=== PATIENT | female | born 1945 | race Caucasian/White ===

== ENCOUNTER → 2017-11-06 | Day surgery (SDC) | payer MEDICARE, MEDICAID, SELFPAY | END | disposition home or self-care (01) | PROVIDERS: Family Provider Internal Medicine; PCP Internal Medicine; Visit Provider Surgery | DX: T82.9XXA Unspecified complication of cardiac and vascular prosthetic device, implant and graft, initial encounter (principal); C49.9 Malignant neoplasm of connective and soft tissue, unspecified | CPT/HCPCS: 36561; 36590; 71010; 71045; 76000; C1788; J1100; J1200; J1644; J2250; J2405; J2704; J3010 ==

== ENCOUNTER → 2018-01-08 08:24 | Outpatient (CLI) | payer MEDICARE, MEDICAID, SELFPAY ==
--- NOTE | 2018-01-08 09:18 | DI.CT.S_ITS ---
PROCEDURE: CT CHEST ABD PEL W CON INDICATIONS: leiomyosarcoma TECHNIQUE: After the administration of oral and intravenous contrast, 5 mm thick sections acquired from the lung apices to the symphysis. 5 mm coronal and sagittal reformats were performed, with additional 7 mm coronal MIP reformats through the lungs. For radiation dose reduction, the following was used: automated exposure control, adjustment of mA and/or kV according to patient size. COMPARISON: [facility], CT, CHEST/ABD/PEL WITH CONTRAST, 01/13/2014, 10:47. [facility], CT, CHEST/ABD/PEL WITH CONTRAST, 07/19/2017, 13:49. [facility], CT, CHEST/ABDOMEN WITHOUT CONTRAST, 05/13/2017, 11:26. [facility], CT, THORAX WITHOUT CONTRAST, 02/18/2017, 10:44. [facility], CT, THORAX WITH CONTRAST, 12/31/2016, 9:43. [facility], CT, CHEST/ABD/PEL WITH CONTRAST, 09/13/2016, 13:55. [facility], CT, CHEST/ABD/PEL WITH CONTRAST, 05/22/2016, 12:45. [place], [place], PET/CT SKULL BASE TO MID THIGH, 02/12/2014, 12:07. [facility], CT, CHEST/ABD/PEL WITH CONTRAST, 10/18/2017, 11:59. FINDINGS: Image quality: Excellent. CHEST: Lungs and pleura: The previously identified nodule with groundglass opacity in the medial right apex continues to decrease in size currently measuring 32 mm AP by 27 mm transverse compared to 36 mm AP by 28 mm transverse. The remaining areas of patchy nodular opacity within lungs bilaterally are unchanged. In addition, scattered nodules within the lungs are also unchanged. No new areas of pass a, patchy or nodular are identified since prior exam. Mediastinum: Heart size is normal. No pericardial effusion. No mediastinal or hilar adenopathy by size criteria. Thoracic aorta and central pulmonary arteries are normal in size. Esophagus is normal in caliber. No hiatal hernia. Chest wall: No axillary or supraclavicular adenopathy by size criteria. Thyroid gland focus of low attenuation measuring approximately 4 mm in the right lobe is unchanged.. ABDOMEN: Solid organs: Liver is normal in size and enhancement. Gallbladder demonstrates minimal calcification without wall thickening, unchanged. Biliary system is non dilated. Pancreas enhances normally. Spleen is normal in size and enhancement. No adrenal nodules. Kidneys demonstrate normal size and enhancement, without hydronephrosis. Peritoneum and bowel: Bowel loops are nonobstructed. There is persistent thickening along the pylorus and duodenum. Prominent stool present throughout colon. Nodes and vessels: No retroperitoneal or mesenteric adenopathy by size criteria. Aorta and inferior vena cava are normal in size. Miscellaneous: No ventral hernias. PELVIS: Genitourinary: Bladder wall thickness is normal. Miscellaneous: No inguinal hernias or adenopathy. Bones: Sclerosis and deformity are present within the right lateral fifth and sixth ribs as well as the left lateral fourth and fifth ribs, likely consistent with previous pathologic fracture. It is noted that appearance is stable compared to 10/18/17. However, there has been interval progression in fracture appearance of the left-sided ribs compared to 07/19/17. No vertebral body compression fractures. IMPRESSION: 1. Decreased appearance of the groundglass surrounding nodule in the right apex. 2. Stable appearance of patchy and nodular opacities within the lungs bilaterally suggestive of ratio show pneumonitis. 3. Bilateral rib involvement as described above. Prominent stool is present without obstruction. Recommend correlation constipation. Dictated by: Karla Scott M.D. on 01/08/2018 at 13:45 Approved by: Karla Scott M.D. on 01/08/2018 at 14:02
== END ==
PROVIDERS: PCP Internal Medicine; Visit Provider Internal Medicine Hematology & Oncology
DX: C34.90 Malignant neoplasm of unspecified part of unspecified bronchus or lung (principal); C49.9 Malignant neoplasm of connective and soft tissue, unspecified
CPT/HCPCS: 71260; 74177; Q9967

== ENCOUNTER → 2018-03-25 11:33 | Outpatient (CLI) | payer MEDICARE, MEDICAID, SELFPAY ==
--- NOTE | 2018-03-25 13:34 | DI.CT.S_ITS ---
PROCEDURE: CT CHEST ABD PEL W CON INDICATIONS: SURVEILLANCE TECHNIQUE: After the administration of oral and intravenous contrast, 5 mm thick sections acquired from the lung apices to the symphysis. 5 mm coronal and sagittal reformats were performed, with additional 7 mm coronal MIP reformats through the lungs. For radiation dose reduction, the following was used: automated exposure control, adjustment of mA and/or kV according to patient size. COMPARISON: [facility], CT, CHEST/ABD/PEL WITH CONTRAST, 10/18/2017, 11:59. [facility], CT, CHEST/ABD/PEL WITH CONTRAST, 07/19/2017, 13:49. [facility], CT, CHEST/ABDOMEN WITHOUT CONTRAST, 05/13/2017, 11:26. [facility], CT, CT STILES, 02/25/2017, 15:37. [facility], CT, THORAX WITHOUT CONTRAST, 02/18/2017, 10:44. [facility], CT, THORAX WITH CONTRAST, 12/31/2016, 9:43. [facility], CT, CHEST/ABD/PEL WITH CONTRAST, 09/13/2016, 13:55. [facility], CT, CT CHEST ABD PEL W CON, 01/08/2018, 9:13. FINDINGS: Image quality: Excellent. CHEST: Lungs and pleura: No new consolidation is seen. There is redemonstration of posterior right apical mass, with no change in size however there is increased internal attenuation since the prior study Other areas of ill-defined nodular consolidation seen throughout the upper and lower lobes bilaterally have not changed since 01/08/18. No pleural effusions or pneumothorax. Central and peripheral airways appear patent and normal in caliber. Mediastinum: Heart size is normal. Coronary calcifications are seen. No pericardial effusion. No mediastinal or hilar adenopathy by size criteria. Thoracic aorta and central pulmonary arteries are normal in size. Possible distal esophageal wall thickening, nonspecific. No hiatal hernia. Chest wall: No axillary or supraclavicular adenopathy by size criteria. Thyroid gland grossly unremarkable. ABDOMEN: Solid organs: There is hepatic steatosis. No focal hepatic lesion is seen. Gallbladder contains a gallstone however no definite pericholecystic inflammatory appearance.. Biliary system is non dilated. Pancreas enhances normally. Spleen is normal in size and enhancement. No adrenal nodules. Kidneys demonstrate normal size and enhancement, without hydronephrosis. Peritoneum and bowel: Bowel loops demonstrate normal wall thickness and caliber. No free fluid or air. The rectum contains stool and is otherwise unremarkable. The appendix is not well-visualized. Nodes and vessels: No retroperitoneal or mesenteric adenopathy by size criteria. Aorta and inferior vena cava are normal in size. Miscellaneous: No ventral hernias. PELVIS: Genitourinary: Bladder wall thickness is normal. Miscellaneous: No inguinal hernias or adenopathy. Bones: No significant change in left fourth and fifth rib fractures. Right fifth and sixth rib fracture are also unchanged. No vertebral body compression fractures. IMPRESSION: Overall, no interval change in size or number of ill-defined nodular areas of consolidation throughout the bilateral upper and lower lobes. However, there is increase in internal attenuation of the right apical nodule which now demonstrates a more solid appearance, of unclear clinical significance. Continued close attention to this area is recommended. Possible distal esophageal wall thickening which could be further evaluated with endoscopy as clinically warranted. Coronary artery disease. Hepatic steatosis. Dictated by: Jaime Singleton M.D. on 03/25/2018 at 14:23 Approved by: Jaime Singleton M.D. on 03/25/2018 at 14:40
== END ==
PROVIDERS: Family Provider Internal Medicine; PCP Internal Medicine; Visit Provider Internal Medicine Hematology & Oncology
DX: C49.9 Malignant neoplasm of connective and soft tissue, unspecified (principal); R91.8 Other nonspecific abnormal finding of lung field; I25.10 Atherosclerotic heart disease of native coronary artery without angina pectoris; K76.0 Fatty (change of) liver, not elsewhere classified
CPT/HCPCS: 71260; 74177; Q9967

== ENCOUNTER → 2018-04-11 12:57 | Outpatient (CLI) | payer MEDICARE, MEDICAID, SELFPAY ==
[2018-04-11 14:02] LABS: Hematocrit 36.8 % (36-46); Hemoglobin 12.6 g/dL (12.0-16.0); Mean Corpuscular HGB Conc 34.3 % (30-36); Mean Corpuscular Hemoglobin 34.1 PG (26-34); Mean Corpuscular Volume 99.4 fL (80-100); Platelet Count 228 X10^3/uL (150-400); Red Cell Distribution Width 14.9 % (11.6-14.8); White Blood Cell Count 3.1 X10^3/uL (4.5-11.0)
[2018-04-11 14:43] LABS: Alanine Aminotransferase 21 IU/L (9-52); Albumin 4.4 g/dL (3.5-5.0); Albumin Globulin Ratio 1.6 (1.0-2.8); Alkaline Phosphatase 39 U/L (38-126); Aspartate Aminotransferase 24 IU/L (14-36); BUN Creatinine Ratio 13.8 (6-22); Bilirubin Total 0.6 mg/dL (0.2-1.3); Blood Urea Nitrogen 11 mg/dL (7-17); Calcium 10.1 mg/dL (8.4-10.2); Carbon Dioxide 32 mmol/L (22-32); Chloride 102 mmol/L (98-107); Estimated Glomerular Filt Rate > 60.0 mL/min (>60); Globulin 2.7 g/dL (1.7-4.1); Glucose 92 mg/dL (80-110); HEMOLYSIS < 15 (0-50); Potassium 4.8 mmol/L (3.4-5.1); Sodium 143 mmol/L (137-145); Total Protein 7.1 g/dL (6.3-8.2)
== END ==
PROVIDERS: Family Provider Internal Medicine; PCP Internal Medicine; Visit Provider Plastic Surgery
DX: Z01.810 Encounter for preprocedural cardiovascular examination (principal)
CPT/HCPCS: 36415; 80053; 85027; 93005

== ENCOUNTER 2018-05-06 14:22 | Emergency (ER) | payer MEDICARE, MEDICAID, SELFPAY ==
[2018-05-06 14:38] VITALS: BP 174/88; PULSE 86; RESP 24; TEMP 37; O2SAT 100; BMI 21.7
--- NOTE | 2018-05-06 14:50 | ED_ITS ---
HPI - URI/Sore Throat <DESIREE Geronimo - Last Filed: 05/06/18 22:06> General Chief Complaint: Upper Respiratory Symptoms Stated Complaint: flu x4 days and dehydrated Time Seen by Provider: 05/06/18 14:43 Source: patient Mode of arrival: ambulatory Limitations: no limitations History of Present Illness HPI Narrative: 72-year-old female with history of uterine cancer who is a nonsmoker here for complaint of having a fever cough and nausea vomiting diarrhea over the past 4 days. Her has had the similar symptoms. She denies any new acute abdominal pain. Positive p.o. intake although is decreased to the nausea vomiting. They are concerned that symptoms feel like the flu. Cough is described as nonproductive. She denies any urinary symptoms. No other concerns or complaints Related Data Home Medications Medication Instructions Recorded Confirmed calcium carbonate [Calcium 600] 03/20/18 05/15/18 cholecalciferol (vitamin D3) 2,000 unit PO DAILY 03/20/18 05/15/18 [Vitamin D3] cinnamon bark [Cinnamon] 1 cap PO BID 03/20/18 05/15/18 arina (Zingiber officinalis) 500 mg PO TID 03/20/18 05/15/18 morphine ER 20 mg capsule,extended 20 mg PO Q12H 04/28/18 05/15/18 release pellets Women's 50 Plus Daily Formula 1 cap PO DAILY 05/06/18 05/15/18 amlodipine 1 tab PO DAILY 05/06/18 05/15/18 lidocaine 1 patch TOPICAL Q12H 05/06/18 05/15/18 lidocaine HCl 1 applic TOPICAL DAILY PRN 05/06/18 05/15/18 omeprazole 1 tab PO DAILY 05/06/18 05/15/18 oxybutynin chloride 1 tab PO DAILY 05/06/18 05/15/18 pazopanib [Votrient] 4 tab PO DAILY 05/06/18 05/15/18 tramadol 1 - 2 tab PO Q6H PRN 05/06/18 05/15/18 triamterene-hydrochlorothiazid 1 tab PO DAILY PRN 05/06/18 05/15/18 turmeric root extract 500 mg PO BID 05/06/18 05/15/18 oxycodone-acetaminophen 5 mg-325 PO 7 Days #30 tab 05/15/18 05/15/18 mg tablet Previous Rx's Medication Instructions Recorded letrozole [Femara] 2.5 mg PO QDAY #90 tab 02/17/18 ondansetron [Zofran ODT] 4 mg PO Q6-8H PRN #10 tab 05/06/18 calcitonin (salmon) 200 1 spray INTRANASAL (ALT) DAILY 05/13/18 unit/actuation nasal spray #3.7 ml Allergies Allergy/AdvReac Type Severity Reaction Status Date / Time Pork/Porcine Containing Allergy Intermediate SWELLING, Verified 05/15/18 10:45 Products ILL Review of Systems <DESIREE Geronimo - Last Filed: 05/06/18 22:06> Review of Systems All systems reviewed & are unremarkable except as noted in HPI and below Constitutional Reports fever(s) Eyes Denies change in vision, Denies eye discharge, Denies irritation and Denies loss of vision ENT Ears, Nose, Mouth, and Throat: Denies change in voice, Denies neck pain and Denies sore throat Cardiovascular Denies chest pain, Denies irregular heart rhythm, Denies lightheadedness, Denies palpitations, Denies dyspnea, Denies dyspnea on exertion and Denies orthopnea Respiratory Reports cough, Denies dyspnea, Denies dyspnea on exertion and Denies wheezing Gastrointestinal Gastrointestinal: Reports diarrhea, Reports nausea and Reports vomiting Genitourinary Denies hematuria, Denies flank pain, Denies urinary incontinence and Denies urinary urgency Musculoskeletal Denies neck pain Integumentary/Breasts Denies pruritus, Denies erythema, Denies rash and Denies wounds Neurologic Denies confusion and Denies loss of vision Psychiatric Denies anxiety, Denies confusion, Denies depression, Denies homicidal ideation and Denies suicidal ideation Endocrine Denies palpitations Hematologic/Lymphatic Denies easy bruising Allergic/Immunologic Denies wheezing Exam <DESIREE Geronimo - Last Filed: 05/06/18 22:06> Initial Vital Signs Initial Vital Signs: Vital Signs Temperature 98.6 F 05/06/18 14:38 Pulse Rate 86 05/06/18 14:38 Respiratory Rate 24 05/06/18 14:38 Blood Pressure 174/88 H 05/06/18 14:38 Pulse Oximetry 100 05/06/18 14:38 Const General: cooperative and well developed Nutritional Appearance: well nourished Orientation: alert, awake, oriented x3 and not confused [facility] Nose: nasal discharge Face and sinus: sinus tenderness Mouth: oral mucosae normal and moist mucous membranes Throat: posterior oropharynx normal Eyes Conjunctivae: conjunctivae normal Sclera: sclerae normal Pupils: PERRL EOM: EOM intact bilaterally Resp Effort & Inspection: normal respiratory effort, able to speak in complete sentences, no respiratory distress and no use of accessory muscles Auscultation: clear to auscultation bilaterally, no rales, no rhonchi and no wheezes Cardio Rate: regular rate Rhythm: regular rhythm Heart Sounds: no click, no gallops, no murmurs and no rubs Pulses: normal peripheral pulses GI Inspection: non-distended Palpation: soft, no hepatosplenomegaly, No guarding, No pulsatile mass and tender (Tenderness at incision site not new finding no signs of infection at the incision site) Auscultation: normal bowel sounds General: No CVA tenderness Neuro General: alert, oriented x3, gait normal and no focal motor deficits Speech: speech normal <Moraima Farah MD - Last Filed: 05/15/18 14:00> Initial Vital Signs Initial Vital Signs: Vital Signs Temperature 98.6 F 05/06/18 14:38 Pulse Rate 86 05/06/18 14:38 Respiratory Rate 24 05/06/18 14:38 Blood Pressure 174/88 H 05/06/18 14:38 Pulse Oximetry 100 05/06/18 14:38 Course <DESIREE Geronimo - Last Filed: 05/06/18 22:06> Orders Ordered: Discontinued Medications Sodium Chloride (Normal Saline 0.9%) 1,000 mls @ 1,000 mls/hr IV BOLUS ONE Stop: 05/06/18 16:18 Last Infusion: 05/06/18 18:29 Dose: 0 mls/hr Admin: 05/06/18 16:45 Dose: 1,000 mls/hr Ondansetron HCl (Zofran) 4 mg IV NOW ONE Stop: 05/06/18 15:20 Last Admin: 05/06/18 16:45 Dose: 4 mg Vital Signs - 8 hr 05/06/18 14:38 05/06/18 16:07 05/06/18 18:35 Temperature 98.6 F Pulse Rate 86 87 83 Respiratory Rate 24 16 18 Blood Pressure 174/88 H Blood Pressure [Right Arm] 164/91 H 164/85 H Pulse Oximetry 100 98 99 05/06/18 18:48 Temperature Pulse Rate 84 Respiratory Rate 16 Blood Pressure Blood Pressure [Right Arm] 164/85 H Pulse Oximetry 98 <Moraima Farah MD - Last Filed: 05/15/18 14:00> Orders Ordered: Discontinued Medications Sodium Chloride (Normal Saline 0.9%) 1,000 mls @ 1,000 mls/hr IV BOLUS ONE Stop: 05/06/18 16:18 Last Infusion: 05/06/18 18:29 Dose: 0 mls/hr Admin: 05/06/18 16:45 Dose: 1,000 mls/hr Ondansetron HCl (Zofran) 4 mg IV NOW ONE Stop: 05/06/18 15:20 Last Admin: 05/06/18 16:45 Dose: 4 mg Vital Signs - 8 hr 05/06/18 14:38 05/06/18 16:07 05/06/18 18:35 Temperature 98.6 F Pulse Rate 86 87 83 Respiratory Rate 24 16 18 Blood Pressure 174/88 H Blood Pressure [Right Arm] 164/91 H 164/85 H Pulse Oximetry 100 98 99 05/06/18 18:48 Temperature Pulse Rate 84 Respiratory Rate 16 Blood Pressure Blood Pressure [Right Arm] 164/85 H Pulse Oximetry 98 MDM - URI/Sore Throat <DESIREE Geronimo - Last Filed: 05/06/18 22:06> Lab Data Result diagrams: 05/06/18 16:15 05/06/18 16:15 Lab Results 05/06/18 05/06/18 05/06/18 Range/Units 16:09 16:15 16:15 WBC 5.7 (4.5-11.0) X10^3/uL RBC 3.47 L (4.0-5.2) X10^6/uL Hgb 11.7 L (12.0-16.0) g/dL Hct 35.1 L (36-46) % MCV 101.2 H (80-100) fL MCH 33.8 (26-34) PG MCHC 33.3 (30-36) % RDW 15.3 H (11.6-14.8) % Plt Count 328 (150-400) X10^3/uL Neut % (Auto) 80.4 H (50-75) % Lymph % (Auto) 12.8 L (25-40) % [place] % (Auto) 5.9 (3-14) % Eos % (Auto) 0.4 L (2-4) % Baso % (Auto) 0.5 (0-2) % Neut # (Auto) 4600 (8504-3106) /uL Sodium (137-145) mmol/L Potassium (3.4-5.1) mmol/L Chloride (98-107) mmol/L Carbon Dioxide (22-32) mmol/L BUN (7-17) mg/dL Creatinine (0.52-1.04) mg/dL Estimated GFR (>60) mL/min BUN/Creatinine Ratio (6-22) Glucose (80-110) mg/dL Lactate (0.7-2.1) mmol/L Calcium (8.4-10.2) mg/dL Total Bilirubin (0.2-1.3) mg/dL AST (14-36) IU/L ALT (9-52) IU/L Alkaline Phosphatase (38-126) U/L Total Protein (6.3-8.2) g/dL Albumin (3.5-5.0) g/dL Globulin (1.7-4.1) g/dL Albumin/Globulin Ratio (1.0-2.8) Procalcitonin < 0.05 (<0.5) ng/mL Urine RBC 0-1/hpf (0-5/HPF) Urine WBC 1-5/hpf (0-5/HPF) Ur Squamous Epith Cells 0-1 /hpf Urine Bacteria Occasional (0-1) (None) Urine Mucus 1+ H (Negative) Ur Culture Indicated? Cult not indicated Micro UA Comment Not Reportable Influenza A & B (PCR) (Negative) 05/06/18 05/06/18 05/06/18 Range/Units 16:15 16:15 Unknown WBC (4.5-11.0) X10^3/uL RBC (4.0-5.2) X10^6/uL Hgb (12.0-16.0) g/dL Hct (36-46) % MCV (80-100) fL MCH (26-34) PG MCHC (30-36) % RDW (11.6-14.8) % Plt Count (150-400) X10^3/uL Neut % (Auto) (50-75) % Lymph % (Auto) (25-40) % [place] % (Auto) (3-14) % Eos % (Auto) (2-4) % Baso % (Auto) (0-2) % Neut # (Auto) (6962-8845) /uL Sodium 141 (137-145) mmol/L Potassium 4.1 (3.4-5.1) mmol/L Chloride 105 (98-107) mmol/L Carbon Dioxide 25 (22-32) mmol/L BUN 12 (7-17) mg/dL Creatinine 0.60 (0.52-1.04) mg/dL Estimated GFR > 60.0 (>60) mL/min BUN/Creatinine Ratio 20.0 (6-22) Glucose 87 (80-110) mg/dL Lactate 1.0 (0.7-2.1) mmol/L Calcium 9.3 (8.4-10.2) mg/dL Total Bilirubin 0.5 (0.2-1.3) mg/dL AST 22 (14-36) IU/L ALT 18 (9-52) IU/L Alkaline Phosphatase 47 (38-126) U/L Total Protein 7.3 (6.3-8.2) g/dL Albumin 4.4 (3.5-5.0) g/dL Globulin 2.9 (1.7-4.1) g/dL Albumin/Globulin Ratio 1.5 (1.0-2.8) Procalcitonin (<0.5) ng/mL Urine RBC (0-5/HPF) Urine WBC (0-5/HPF) Ur Squamous Epith Cells Urine Bacteria (None) Urine Mucus (Negative) Ur Culture Indicated? Micro UA Comment Influenza A & B (PCR) Negative (Negative) Urine Dip Bedside Urine Glucose Negative Bedside Urine Bilirubin - Negative Bedside Urine Ketone ++ 40 Urine Specific [place] 1.030 Bedside Urine Occult Blood - Negative Bedside Urine pH 6.0 Bedside Urine Protein +/- 15 Bedside Urine Urobilinogen - Negative Bedside Urine Nitrite - Negative Bedside Urine Leukocytes - Negative Esterase Imaging Data Chest x-ray: Radiologist's impression: [address] [place] [id number] XRay Report Signed Patient: Nessa Nino [facility]#: [id number] : 7Acct:[id number] Age/Sex: 72 / FDate of Service: 05/06/18 Loc: ED Accession Number: [id number] Procedure: XR chest 1V Ordering Provider: Daquan Gamble PROCEDURE: XR CHEST 1V INDICATIONS: Cough and fever TECHNIQUE: One view of the chest was acquired. COMPARISON: [facility], CHEST 1 VIEW, 11/06/2017, 13:19. FINDINGS: Surgical changes and devices: A right-sided Port-A-Cath central line is unchanged. Lungs and pleura: There continue to be rounded and elongated areas of pulmonary consolidation, located within both lungs, not significantly changed. No new areas of consolidation are evident. Mediastinum: Mediastinal contours appear normal. Heart size is normal. Bones and chest wall: No suspicious bony lesions. Pathologic rib lesions are evident involving the 4th and 5th left ribs. Overlying soft tissues appear unremarkable. IMPRESSION: 1. Patchy areas of pulmonary consolidation are unchanged since the prior study , which may be neoplastic or infectious in nature. 2. No new cardiopulmonary processes. Dictated by: Clement Arechiga M.D. on 05/06/2018 at 15:16 Approved by: Clement Arechiga M.D. on 05/06/2018 at 15:17 MDM Narrative Medical decision making narrative: CBC shows mild anemia otherwise is unremarkable. chemistry panel was obtained was unremarkable. Procalcitonin and lactate were negative. Chest x-ray was obtained was negative for any acute findings. Influenza swabs were negative. Urinalysis was negative for urinary tract infection. Signs and symptoms presents as a viral illness. She is prescribed Zofran to help with the nausea. Plenty of fluids. Slowly advance diet as tolerated. [id number] Tylenol or Motrin as needed for any discomfort fever. Follow up with primary care provider. Return emergency room for any worsening symptoms. <Moraima Farah MD - Last Filed: 05/15/18 14:00> Lab Data Lab Results 05/06/18 05/06/18 05/06/18 Range/Units 16:09 16:15 16:15 WBC 5.7 (4.5-11.0) X10^3/uL RBC 3.47 L (4.0-5.2) X10^6/uL Hgb 11.7 L (12.0-16.0) g/dL Hct 35.1 L (36-46) % MCV 101.2 H (80-100) fL MCH 33.8 (26-34) PG MCHC 33.3 (30-36) % RDW 15.3 H (11.6-14.8) % Plt Count 328 (150-400) X10^3/uL Neut % (Auto) 80.4 H (50-75) % Lymph % (Auto) 12.8 L (25-40) % [place] % (Auto) 5.9 (3-14) % Eos % (Auto) 0.4 L (2-4) % Baso % (Auto) 0.5 (0-2) % Neut # (Auto) 4600 (9690-0773) /uL Sodium (137-145) mmol/L Potassium (3.4-5.1) mmol/L Chloride (98-107) mmol/L Carbon Dioxide (22-32) mmol/L BUN (7-17) mg/dL Creatinine (0.52-1.04) mg/dL Estimated GFR (>60) mL/min BUN/Creatinine Ratio (6-22) Glucose (80-110) mg/dL Lactate (0.7-2.1) mmol/L Calcium (8.4-10.2) mg/dL Total Bilirubin (0.2-1.3) mg/dL AST (14-36) IU/L ALT (9-52) IU/L Alkaline Phosphatase (38-126) U/L Total Protein (6.3-8.2) g/dL Albumin (3.5-5.0) g/dL Globulin (1.7-4.1) g/dL Albumin/Globulin Ratio (1.0-2.8) Procalcitonin < 0.05 (<0.5) ng/mL Urine RBC 0-1/hpf (0-5/HPF) Urine WBC 1-5/hpf (0-5/HPF) Ur Squamous Epith Cells 0-1 /hpf Urine Bacteria Occasional (0-1) (None) Urine Mucus 1+ H (Negative) Ur Culture Indicated? Cult not indicated Micro UA Comment Not Reportable Influenza A & B (PCR) (Negative) 05/06/18 05/06/18 05/06/18 Range/Units 16:15 16:15 Unknown WBC (4.5-11.0) X10^3/uL RBC (4.0-5.2) X10^6/uL Hgb (12.0-16.0) g/dL Hct (36-46) % MCV (80-100) fL MCH (26-34) PG MCHC (30-36) % RDW (11.6-14.8) % Plt Count (150-400) X10^3/uL Neut % (Auto) (50-75) % Lymph % (Auto) (25-40) % [place] % (Auto) (3-14) % Eos % (Auto) (2-4) % Baso % (Auto) (0-2) % Neut # (Auto) (4951-4937) /uL Sodium 141 (137-145) mmol/L Potassium 4.1 (3.4-5.1) mmol/L Chloride 105 (98-107) mmol/L Carbon Dioxide 25 (22-32) mmol/L BUN 12 (7-17) mg/dL Creatinine 0.60 (0.52-1.04) mg/dL Estimated GFR > 60.0 (>60) mL/min BUN/Creatinine Ratio 20.0 (6-22) Glucose 87 (80-110) mg/dL Lactate 1.0 (0.7-2.1) mmol/L Calcium 9.3 (8.4-10.2) mg/dL Total Bilirubin 0.5 (0.2-1.3) mg/dL AST 22 (14-36) IU/L ALT 18 (9-52) IU/L Alkaline Phosphatase 47 (38-126) U/L Total Protein 7.3 (6.3-8.2) g/dL Albumin 4.4 (3.5-5.0) g/dL Globulin 2.9 (1.7-4.1) g/dL Albumin/Globulin Ratio 1.5 (1.0-2.8) Procalcitonin (<0.5) ng/mL Urine RBC (0-5/HPF) Urine WBC (0-5/HPF) Ur Squamous Epith Cells Urine Bacteria (None) Urine Mucus (Negative) Ur Culture Indicated? Micro UA Comment Influenza A & B (PCR) Negative (Negative) Urine Dip Bedside Urine Glucose Negative Bedside Urine Bilirubin - Negative Bedside Urine Ketone ++ 40 Urine Specific [place] 1.030 Bedside Urine Occult Blood - Negative Bedside Urine pH 6.0 Bedside Urine Protein +/- 15 Bedside Urine Urobilinogen - Negative Bedside Urine Nitrite - Negative Bedside Urine Leukocytes - Negative Esterase Discharge Plan Departure Patient Disposition: Home Clinical Impression: Viral illness Discharge Date/Time: 05/06/18 19:08 Interventions: ED Discharge Assessment Last Done: 05/06/18 19:07 Instructions: DI for Viral Syndrome Activity Restrictions/Additional Instructions: Laboratory results and imaging today were unremarkable. Signs and symptoms presents as a viral illness. Here prescribed Zofran to help with the nausea use as directed. Plenty of fluids. Slowly advance diet as tolerated. Follow up with primary care provider. For any worsening symptoms return to the emergency room. Use [id number] Tylenol Motrin as needed for any discomfort in fever. Prescriptions: New ondansetron [Zofran ODT] 4 mg tablet,disintegrating 4 mg PO Q6-8H PRN (Reason: nausea and vomiting) Qty: 10 RF: 0 No Action calcitonin (salmon) 200 unit/actuation spray,non-aerosol 1 spray Intranasal (ALT) DAILY Qty: 3.7 RF: 1 morphine 20 mg capsule,extend.release pellets 20 mg PO Q12H RF: 0 letrozole [Femara] 2.5 MG tablet 2.5 mg PO QDAY Qty: 90 RF: 1 calcium carbonate [Calcium 600] 600 mg calcium (1,500 mg) Tablet RF: 0 arina (Zingiber officinalis) 500 mg Capsule 500 mg PO TID RF: 0 cinnamon bark [Cinnamon] 500 mg Capsule 1 cap PO BID RF: 0 cholecalciferol (vitamin D3) [Vitamin D3] 2,000 unit Capsule 2,000 unit PO DAILY RF: 0 amlodipine 5 mg tablet 1 tab PO DAILY RF: 0 lidocaine 5 % adhesive patch,medicated 1 patch Topical Q12H RF: 0 omeprazole 20 mg capsule,delayed release(DR/EC) 1 tab PO DAILY RF: 0 pazopanib [Votrient] 200 mg tablet 4 tab PO DAILY RF: 0 lidocaine HCl 2 % Jelly 1 applic TOPICAL DAILY PRN (Reason: PORT ACCESS) RF: 0 tramadol 50 mg Tablet 1 - 2 tab PO Q6H PRN (Reason: PAIN) RF: 0 triamterene-hydrochlorothiazid 37.5-25 mg Tablet 1 tab PO DAILY PRN (Reason: LEG SWELLILNG) RF: 0 oxybutynin chloride 5 mg tablet 1 tab PO DAILY RF: 0 turmeric root extract 500 mg Capsule 500 mg PO BID RF: 0 Women's 50 Plus Daily Formula 1 cap PO DAILY RF: 0 oxycodone-acetaminophen 5-325 mg tablet PO 7 Days Qty: 30 RF: 0 Referrals: Fuad Burkett MD [Primary Care Provider] -
--- NOTE | 2018-05-06 15:19 | DI.RAD.S_ITS ---
PROCEDURE: XR CHEST 1V INDICATIONS: Cough and fever TECHNIQUE: One view of the chest was acquired. COMPARISON: [facility], , CHEST 1 VIEW, 11/06/2017, 13:19. FINDINGS: Surgical changes and devices: A right-sided Port-A-Cath central line is unchanged. Lungs and pleura: There continue to be rounded and elongated areas of pulmonary consolidation, located within both lungs, not significantly changed. No new areas of consolidation are evident. Mediastinum: Mediastinal contours appear normal. Heart size is normal. Bones and chest wall: No suspicious bony lesions. Pathologic rib lesions are evident involving the 4th and 5th left ribs. Overlying soft tissues appear unremarkable. IMPRESSION: 1. Patchy areas of pulmonary consolidation are unchanged since the prior study, which may be neoplastic or infectious in nature. 2. No new cardiopulmonary processes. Dictated by: Clement Arechiga M.D. on 05/06/2018 at 15:16 Approved by: Clement Arechiga M.D. on 05/06/2018 at 15:17
[2018-05-06 15:26] LABS: Influenza A and B by PCR Rapid Negative (Negative)
[2018-05-06 16:07] VITALS: BP 164/91; PULSE 87; RESP 16; O2SAT 98
[2018-05-06 16:32] LABS: Add Manual Diff / Slide Review NO; Basophils Percent Auto 0.5 % (0-2); Eosinophils Percent Auto 0.4 % (2-4); Hematocrit 35.1 % (36-46); Hemoglobin 11.7 g/dL (12.0-16.0); Lymphocytes Percent Auto 12.8 % (25-40); Mean Corpuscular HGB Conc 33.3 % (30-36); Mean Corpuscular Hemoglobin 33.8 PG (26-34); Mean Corpuscular Volume 101.2 fL (80-100); Monocytes Percent Auto 5.9 % (3-14); Neutrophils Absolute Auto 4600 /uL (3000-5900); Neutrophils Percent Auto 80.4 % (50-75); Platelet Count 328 X10^3/uL (150-400); Red Blood Cell Count 3.47 X10^6/uL (4.0-5.2); Red Cell Distribution Width 15.3 % (11.6-14.8); White Blood Cell Count 5.7 X10^3/uL (4.5-11.0)
[2018-05-06 16:41] LABS: Bacteria Urine Occasional (0-1); RBC Urine 0-1/HPF (0-5/HPF); Squamous Epithelial Cell Urine 0-1 /HPF; WBC Urine 1-5/HPF (0-5/HPF)
[2018-05-06 16:42] LABS: Culture Indicated Urine Cult Not Indicated; Mucus Urine 1+ (Negative)
[2018-05-06] MEDS: ONDANSETRON 4 MG/2 ML INJ IV (16:45)
[2018-05-06] MEDS: SODIUM CHLORIDE 0.9% 1,000 ML 1000 ML IV (16:45)
[2018-05-06 17:01] LABS: Alanine Aminotransferase 18 IU/L (9-52); Albumin 4.4 g/dL (3.5-5.0); Albumin Globulin Ratio 1.5 (1.0-2.8); Alkaline Phosphatase 47 U/L (38-126); Aspartate Aminotransferase 22 IU/L (14-36); Bilirubin Total 0.5 mg/dL (0.2-1.3); Blood Urea Nitrogen 12 mg/dL (7-17); Calcium 9.3 mg/dL (8.4-10.2); Carbon Dioxide 25 mmol/L (22-32); Chloride 105 mmol/L (98-107); Estimated Glomerular Filt Rate > 60.0 mL/min (>60); Globulin 2.9 g/dL (1.7-4.1); Glucose 87 mg/dL (80-110); HEMOLYSIS < 15 (0-50); Potassium 4.1 mmol/L (3.4-5.1); Sodium 141 mmol/L (137-145); Total Protein 7.3 g/dL (6.3-8.2)
[2018-05-06 17:43] LABS: Procalcitonin < 0.05 ng/mL (<0.5)
[2018-05-06 18:35] VITALS: BP 164/85; PULSE 83; RESP 18; O2SAT 99
[2018-05-06 18:48] VITALS: BP 164/85; PULSE 84; RESP 16; O2SAT 98
== END 2018-05-06 19:08 | disposition home or self-care (01) ==
PROVIDERS: Emergency Provider Nurse Practitioner Family; Family Provider Internal Medicine; PCP Internal Medicine
DX: B34.9 Viral infection, unspecified (principal)
CPT/HCPCS: 36591; 71045; 80053; 81003; 81015; 83605; 84145; 85025; 87400; 96361; 96374; 99283; 99284; J2405

== ENCOUNTER 2018-05-22 09:41 | Day surgery (SDC) | payer MEDICARE, MEDICAID, SELFPAY ==
--- NOTE | 2018-05-22 | PATH_ITS ---
[facility] Accession Number: [id number] . 01 Material submitted: . PART A: DUODENAL BIOPSY PART B: ANTRAL BIOPSY PART C: GE JUNCTION BIOPSY PART D: ESOPHAGEAL BIOPSY . 02 Diagnosis: A. Duodenum, Biopsy: Duodenal mucosa with no diagnostic abnormality. Negative for active inflammation, features of sprue, dysplasia or malignancy. . B. Antrum, Biopsy: Gastric antral mucosa with no diagnostic abnormality. No evidence of Helicobacter organisms on H/E stain. Negative for intestinal metaplasia, dysplasia or malignancy. . C-D: Gastroesophageal Junction, Esophagus, Biopsies: Columnar mucosa with no diagnostic abnormality. Negative for specialized intestinal metaplasia, dysplasia or malignancy. [facility]/05/26/2018 . 02 Electronically signed: . Mele Mcmullen MD, PhD, Pathologist NPI- [id number] . 01 Gross description: . Part A: DUODENAL BIOPSY: Received in formalin is 1 fragment(s) of marie, soft tissue measuring 0.2 x 0.1 x 0.1 cm submitted entirely in 1 cassette(s) Part B: ANTRAL BIOPSY: Received in formalin is 1 fragment(s) of marie, soft tissue measuring 0.3 x 0.2 x 0.2 cm submitted entirely in 1 cassette(s) Part C: GE JUNCTION BIOPSY: Received in formalin is 1 fragment(s) of marie, soft tissue measuring 0.3 x 0.2 x 0.2 cm submitted entirely in 1 cassette(s) Part D: ESOPHAGEAL BIOPSY: Received in formalin is 1 fragment(s) of marie, soft tissue measuring 0.3 x 0.3 x 0.2 cm submitted entirely in 1 cassette(s) /CKI /CKI . 02 Pathologist provided ICD-10: R10.13 . 02 CPT . 717517, 138505, [id number], [id number] Specimen Comment: A duplicate report has been generated due to demographic updates. Performed at: 01 [facility] [address] [place] [address], [place], [place] [id number] MD Fernando Scott MD Phone: [phone] Performed at: 02 [facility] [address] [place], [place] [id number] MD Rochelle Osorio MD Phone: [phone]
[2018-05-22 10:08] VITALS: BP 173/87; PULSE 82; RESP 15; TEMP 36.1; O2SAT 99; BMI 21.3
--- NOTE | 2018-05-22 12:11 | PM.PREOP ---
Pre-operative Note Interval Note Pre-op Check: Yes History & Physical Reviewed by Physician Changes: No
[2018-05-22] MEDS: LIDOCAINE 4% SOLN 50 ML 20 ML TOP (12:17)
[2018-05-22] MEDS: TETRACAINE/BENZOCAINE/BUTAMBEN (CETACAINE) BOTTLE 1 SPRAY TOP (12:18)
[2018-05-22] MEDS: MIDAZOLAM 5 MG/5 ML VIAL IV (12:22)
[2018-05-22] MEDS: fentaNYL 250 MCG/5 ML INJ IV (12:23)
[2018-05-22 12:39] VITALS: BP 126/73; PULSE 89; RESP 10; TEMP 36.6; O2SAT 99
--- NOTE | 2018-05-22 12:39 | P.OP_ITS ---
Operative Date/Time/Diagnoses Date of procedure: 05/22/18 Time of procedure: 12:36 Pre-op diagnosis: Dysphagia Anemia Post-op diagnosis: same Procedure & Clinicians Procedure: Esophagogastroduodenoscopy with biopsies Same procedure as scheduled: Yes Indications: Anemia Surgeon: Homa Soares Anesthesia Type: Sedation (Versed 4 mg; fentanyl 150 mcg) Operative Notes Findings: 1. Normal-appearing duodenum 2. Very mild antral gastritis 3. Large hiatal hernia with GE junction at 30 cm from the incisors. 4. Very irregular Z-line with stigmata of recent bleeding 5. Normal posterior oropharynx and vocal cords Closure Type: not applicable Specimen(s): other (All cold forceps mucosal biopsies. 1. Duodenum, 2. Antrum , 3. GE junction) Estimated Blood Loss (mL): 2 Procedure in detail: After obtaining informed consent, the patient was brought to the GI suite and placed in the left lateral decubitus position on the examination table. After placement of appropriate monitors, the patient was given incremental doses of Versed and Fentanyl until an appropriate level of sedation was achieved. A time out was held per SCOAP protocol. A bite block was gently placed between the patient's teeth. The endoscope was lubricated and then passed into the patient's posterior oropharynx. The esophagus was cannulated under direct vision and the scope was passed to the second portion of the duodenum without difficulty. The scope was then withdrawn with careful examination of all areas of the upper GI tract and mucosa. In the stomach, the instrument was retroflexed and the GE junction examined. The scope was straightened and the procedure continued with examination of the remainder of the upper GI tract. Findings are noted above. Air was aspirated from the stomach and the endoscope gently removed from the esophagus. The patient was allowed to awaken from sedation without difficulty and taken to the post-anesthesia care unit in good condition. Complications: none Condition: stable Disposition: PACU Plan for aftercare: 1. Discharge to home 2. Increase omeprazole dose and shortened interval to q.12 hours 3. Add sucralfate to be crushed in fluid and taken as a slurry 4. Soft mechanical diet 5. Recommend conservative management due to patient's other more pressing medical concerns
[2018-05-22 12:44] VITALS: BP 121/72; PULSE 87; RESP 16; O2SAT 99
[2018-05-22 12:49] VITALS: BP 118/70; PULSE 83; RESP 10; O2SAT 99
[2018-05-22 12:55] VITALS: BP 127/82; PULSE 88; RESP 17; O2SAT 100
[2018-05-22 12:59] VITALS: BP 121/78; PULSE 83; RESP 15; TEMP 36.8; O2SAT 100
== END 2018-05-22 13:25 | disposition home or self-care (01) ==
PROVIDERS: Family Provider Internal Medicine; PCP Internal Medicine; Visit Provider Surgery
PROC: 0DJ08ZZ Inspection of Upper Intestinal Tract, Via Natural or Artificial Opening Endoscopic (ICD-10-PCS; CPT 43235; principal; 2018-05-22 10:45)
DX: K29.70 Gastritis, unspecified, without bleeding (principal); D64.9 Anemia, unspecified; K44.9 Diaphragmatic hernia without obstruction or gangrene
CPT/HCPCS: 43239; 88305; J2250; J3010

== ENCOUNTER 2018-05-28 09:34 | Outpatient (CLI) | payer MEDICARE, MEDICAID, SELFPAY ==
[2018-05-28 10:06] VITALS: BP 171/94; PULSE 86; RESP 18; TEMP 36.6; O2SAT 99
--- NOTE | 2018-05-28 10:43 | PC.NURSE ---
AFTER PT AND MD CONVERSATION IT WAS DECIDED TO CANCEL THIS APPOINTMENT AND POSTPONE PROCEDURE TO A LATER DATE DUE TO RECENT ABCOMINAL SURGERY THAT MAKES IT IMPROBABLE SHE WILL BE ABLE TO LIE ON HER STOMACH FOR PROCEDURE, SHE CURRENTLY IS ANEMIC AND HAS A NEW DIAGNOSIS OF BLEEDING ULCERS. PT VERBALIZED UNDERSTANDING OF CONCERNS AND REASONS TO POSTPONE PROCEDURE. PT AMBULATED FROM DI AREA WITH SON IN STABLE CONDITION AFTER IV DC'D BY Ernst SCHMITZ.
== END 2018-05-28 10:46 | disposition home or self-care (01) ==
LOC: RAD 09:37
PROVIDERS: Family Provider Internal Medicine; PCP Internal Medicine; Visit Provider Physical Medicine & Rehabilitation
DX: R07.81 Pleurodynia (principal); Z53.9 Procedure and treatment not carried out, unspecified reason
CPT/HCPCS: J1100; J2250

== ENCOUNTER → 2018-06-20 10:55 | Outpatient (CLI) | payer MEDICARE, MEDICAID, SELFPAY ==
--- NOTE | 2018-06-20 | DI.CT.S_ITS ---
PROCEDURE: CT CHEST ABD PEL WO CON INDICATIONS: RESTAGING NEOPLASM. UTERINE LEIOMYOSARCOMA TECHNIQUE: After the administration of oral contrast, 5 mm thick sections acquired from the lung apices to the symphysis pubis. 5 mm thick coronal and sagittal reformats acquired, with additional 7 mm coronal MIP reformats through the lungs. For radiation dose reduction, the following was used: automated exposure control, adjustment of mA and/or kV according to patient size. COMPARISON: [facility], CT, CT CHEST ABD PEL W CON, 03/25/2018, 13:12. [facility], CT, CHEST/ABD/PEL WITH CONTRAST, 10/18/2017, 11:59. [facility], CT, CT CHEST ABD PEL W CON, 01/08/2018, 9:13. [facility], CT, CHEST/ABDOMEN WITHOUT CONTRAST, 05/13/2017, 11:26. FINDINGS: Image quality: Excellent. CHEST: Lungs and pleura: There is a poorly defined area of consolidation seen involving the right lung apex medially, which measures 3.1 x 2.3 cm. When measured in a similar fashion, this focus measures 3.5 x 2.3 cm on the prior. Within the peripheral left lung along the oblique fissure, there is a poorly defined area of consolidation seen that measures 2.6 x 0.9 cm, which is stable compared to the prior examination. Within the perihilar left lung, there is a poorly defined area of opacity seen, which is similar to the prior. Within the right lower lobe, there is a poorly defined area of opacity seen, which measures 3 x 1.1 cm, which is stable to the prior. Within the right middle lobe anteriorly, there is likely scarring seen, which is similar to the prior examination. No new areas of pulmonary consolidation can be seen. No pneumothorax or pleural effusions are seen. The central airways are patent. Mediastinum: Heart size is normal. No pericardial effusion. No mediastinal adenopathy by CT size criteria. Thoracic aorta and central pulmonary arteries are normal in size. Relatively prominent calcification can be seen of the aortic arch. Coronary artery calcifications are seen. Esophagus is normal in caliber. Reflux of contrast can be seen into the distal esophagus. No hiatal hernia. Chest wall: Remote left posterolateral rib fractures are seen. There is a right-sided chest port is seen, the tip within the superior aspect of the superior vena cava. No axillary or supraclavicular adenopathy by size criteria. Thyroid gland demonstrates no significant noncontrast abnormality. ABDOMEN: Solid organs: Liver is normal in size. Gallbladder demonstrates a gallstone within its lumen. Pancreas is normal in contours. Spleen is normal in size. No adrenal nodules. Both kidneys are normal in size, without hydronephrosis or nephrolithiasis. Peritoneum and bowel: Small and large bowel loops are normal in caliber and wall thickness. No free fluid or air. Nodes and vessels: No retroperitoneal or mesenteric adenopathy by size criteria. Aorta and inferior vena cava are normal in size. Atherosclerotic calcification is noted. Miscellaneous: No ventral hernias. PELVIS: Genitourinary: Bladder wall thickness is normal. This patient is status post hysterectomy. No adnexal masses are seen. Miscellaneous: No inguinal hernias or adenopathy. Bones: No suspicious bony lesions. No vertebral body compression fractures. Degenerative changes are seen throughout. At the L5-S1 level, there is moderate disc space narrowing and mild grade 1 anterolisthesis. Bilateral pars defects are seen, with partial healing. S-shaped scoliotic curvature is seen. IMPRESSION: Overall stable areas of consolidation within the lungs, yet the consolidation within the right upper lobe measuring minimally smaller on the current study than on the prior. Remote left posterolateral rib fractures. Incidental note is made of: Right-sided chest port Gastroesophageal reflux Gallstone Atherosclerotic calcification, and ring coronary artery calcification Hysterectomy S-shaped scoliotic curvature Grade 1 L5-S1 anterolisthesis Dictated by: Aristeo Lovelace M.D. on 06/20/2018 at 11:39 Approved by: Aristeo Lovelace M.D. on 06/20/2018 at 11:51
== END ==
PROVIDERS: Family Provider Internal Medicine; PCP Internal Medicine
DX: C55 Malignant neoplasm of uterus, part unspecified (principal); K21.9 Gastro-esophageal reflux disease without esophagitis; K80.80 Other cholelithiasis without obstruction; I25.10 Atherosclerotic heart disease of native coronary artery without angina pectoris; M43.17 Spondylolisthesis, lumbosacral region
CPT/HCPCS: 71250; 74176

== ENCOUNTER → 2018-07-18 17:57 | Outpatient (CLI) | payer MEDICARE, MEDICAID, SELFPAY ==
--- NOTE | 2018-07-18 17:59 | DI.RAD.S_ITS ---
PROCEDURE: XR RIBS LT MIN 3V W CXR1V INDICATIONS: broken ribs TECHNIQUE: 2 views of the left ribs were acquired, along with a single view chest. COMPARISON: [facility], CT, CHEST/ABD/PEL WITH CONTRAST, 10/18/2017, 11:59. [facility], CT, CT CHEST ABD PEL W CON, 03/25/2018, 13:12. [facility], CT, CT CHEST ABD PEL WO CON, 06/20/2018, 11:48. [facility], CR, XR CHEST 1V, 05/06/2018, 15:33. FINDINGS: Surgical changes and devices: A right subclavian Port-A-Cath is redemonstrated with the tip in the superior vena cava. Bones and chest wall: No displaced rib fracture identified. No suspicious bony lesions. Overlying soft tissues appear unremarkable. Lungs and pleura: No pleural effusions or pneumothorax. There are bilateral confluent opacities redemonstrated likely representing postradiation pneumonitis as seen on the recent CT studies. The findings are similar to the prior studies. Mediastinum: Mediastinal contours appear normal. Heart size is normal. IMPRESSION: 1. No displaced rib fracture is identified. 2. Bilateral confluent airspace opacities redemonstrated likely representing post radiation pneumonitis. Dictated by: Fernando Park M.D. on 07/18/2018 at 18:16 Approved by: Fernando Park M.D. on 07/18/2018 at 18:20
== END ==
PROVIDERS: Family Provider Internal Medicine; PCP Internal Medicine; Visit Provider Physician Assistant
DX: S22.49XA Multiple fractures of ribs, unspecified side, initial encounter for closed fracture (principal)
CPT/HCPCS: 71101

== ENCOUNTER → 2018-08-13 09:26 | Outpatient (CLI) | payer MEDICARE, MEDICAID, SELFPAY ==
--- NOTE | 2018-08-13 | DI.NM.S_ITS ---
PROCEDURE: NE BONE SCAN WHOLE BODY RADIOPHARMACEUTICAL: 20.10 mCi Tc-99m MDP IV. INDICATIONS: MALIGNANT NEOPLASM OF CORPUS UTERI TECHNIQUE: Delayed whole-body scintigrams were obtained approximately 3-4 hours after intravenous injection of radiotracer. Anterior and posterior views were acquired from vertex to feet. Additional left and right oblique views of the thorax were obtained. COMPARISON: [facility], CT, CT CHEST ABD PEL WO CON, 06/20/2018, 11:48. [facility], CR, XR RIBS LT MIN 3V W CXR1V, 07/18/2018, 18:04. [place], [place], PET/CT WHOLE BODY EXTENDED, 06/11/2014, 9:33. FINDINGS: No areas of relative intense radiotracer uptake identified in the osseous skeleton. Increased radiotracer uptake noted in the right shoulder, right wrist and bilateral knees compatible osteoarthritis. Mild S-shaped curvature of the thoracolumbar spine is noted. No abnormal soft tissue uptake. Activity in the kidneys is normal and symmetric. IMPRESSION: No evidence of osseous metastatic disease. Dictated by: Amy Slaughter MD, PhD on 08/13/2018 at 15:33 Approved by: Amy Slaughter MD, PhD on 08/13/2018 at 15:41
== END ==
PROVIDERS: Family Provider Internal Medicine; PCP Internal Medicine; Visit Provider Internal Medicine
DX: C54.9 Malignant neoplasm of corpus uteri, unspecified (principal)
CPT/HCPCS: 78306; A9503

== ENCOUNTER → 2018-09-29 12:07 | Outpatient (CLI) | payer MEDICARE, MEDICAID, SELFPAY ==
--- NOTE | 2018-09-29 12:31 | DI.CT.S_ITS ---
PROCEDURE: CT CHEST ABD PEL WO CON INDICATIONS: f/u leiomyosarcoma TECHNIQUE: After the administration of oral contrast, 5 mm thick sections acquired from the lung apices to the symphysis pubis. 5 mm thick coronal and sagittal reformats acquired, with additional 7 mm coronal MIP reformats through the lungs. For radiation dose reduction, the following was used: automated exposure control, adjustment of mA and/or kV according to patient size. COMPARISON: [facility], CT, CT CHEST ABD PEL W CON, 03/25/2018, 13:12. [facility], CT, CT CHEST ABD PEL W CON, 01/08/2018, 9:13. [facility], CT, CHEST/ABD/PEL WITH CONTRAST, 10/18/2017, 11:59. [facility], CT, CT CHEST ABD PEL WO CON, 06/20/2018, 11:48. FINDINGS: Image quality: Excellent. CHEST: Lungs and pleura: No new focal area of consolidation. The previously visualized bilateral ill-defined nodular and masslike consolidations are grossly unchanged throughout both upper and lower lobes bilaterally. There is a right upper lobe 5 mm nodule image 23 series 3 which appear slightly more conspicuous however this could be due to slice registration artifact. Additional smaller bilateral sub-5 mm pulmonary nodules are grossly unchanged. No pleural effusions or pneumothorax. Central and peripheral airways are patent are normal in caliber. Mediastinum: Heart size is normal. No pericardial effusion. Coronary artery disease No mediastinal adenopathy by CT size criteria. Thoracic aorta and central pulmonary arteries are normal in size. Esophagus is normal in caliber. No hiatal hernia. Chest wall: No axillary or supraclavicular adenopathy by size criteria. Thyroid gland negative. Right chest port. ABDOMEN: Solid organs: Liver is normal in size. Gallbladder contains a large gallstone as before. Pancreas is normal in contours. Spleen is normal in size. No adrenal nodules. Both kidneys are normal in size, without hydronephrosis or nephrolithiasis. Peritoneum and bowel: Small and large bowel loops are normal in caliber and wall thickness. No free fluid or air. Nodes and vessels: No retroperitoneal or mesenteric adenopathy by size criteria. Aorta and inferior vena cava are normal in size. Miscellaneous: No ventral hernias. PELVIS: Genitourinary: Bladder wall thickness is normal. Miscellaneous: No inguinal hernias or adenopathy. Bones: No suspicious bony lesions. No vertebral body compression fractures. Chronic bilateral rib deformities as before. Scoliosis and diffuse spondylitic changes. IMPRESSION: Overall, grossly stable examination with no definite evidence of active or progressive metastatic disease. Slightly more conspicuous appearance to a right upper lobe pulmonary nodule since 06/20/18, however this is within the realm of slice registration artifact. Recommend attention on followup studies. Cholelithiasis as before. Dictated by: Jaime Singleton M.D. on 09/29/2018 at 16:03 Approved by: Jaime Singleton M.D. on 09/29/2018 at 16:11
== END ==
PROVIDERS: Family Provider Internal Medicine; PCP Internal Medicine
DX: C49.9 Malignant neoplasm of connective and soft tissue, unspecified (principal); R91.1 Solitary pulmonary nodule; K80.80 Other cholelithiasis without obstruction
CPT/HCPCS: 71250; 74176; 80053; 85025; Q9967

== ENCOUNTER → 2018-09-29 16:38 | Outpatient (CLI) | payer MEDICARE, MEDICAID, SELFPAY | PROVIDERS: Family Provider Internal Medicine; PCP Internal Medicine | DX: C55 Malignant neoplasm of uterus, part unspecified (principal) ==

== ENCOUNTER → 2018-11-04 10:28 | Outpatient (CLI) | payer MEDICARE, MEDICAID, SELFPAY ==
--- NOTE | 2018-11-04 | DI.MG.S_ITS ---
BILATERAL DIGITAL SCREENING MAMMOGRAM 3D/2D WITH CAD: 11/04/2018 CLINICAL: Routine screening. Comparison is made [facility]. The tissue of both breasts is heterogeneously dense. This may lower the sensitivity of mammography. Current study was also evaluated with a Computer Aided Detection (CAD) system. There are benign post operative findings in the right breast. There also are benign calcifications in both breasts. No significant masses, calcifications, or other findings are seen in either breast. There has been no significant interval change. IMPRESSION: There is no mammographic evidence of malignancy. A 1 year screening mammogram is recommended. This exam was interpreted at Station ID: [id number]. NOTE: For mammograms, a report in lay terms will be sent to the patient. Approximately 15% of breast malignancies will not be visualized mammographically. In the management of a palpable breast mass, a negative mammogram must not discourage biopsy of a clinically suspicious lesion. Electronically Signed By: Mike chaudhari/vivienne:11/04/2018 13:06:25 copy to: Fuad Burkett letter sent: Normal Exam ACR BI-RADS Category 2: Benign Finding(s) 3342F
[2018-11-04 11:27] LABS: Add Manual Diff / Slide Review NO; Basophils Absolute Auto 0 /uL (0-100); Basophils Percent Auto 0.5 % (0-2); Eosinophils Absolute Auto 0 /uL (0-450); Eosinophils Percent Auto 1.3 % (2-4); Hematocrit 34.2 % (36-46); Hemoglobin 11.6 g/dL (12.0-16.0); Lymphocytes Absolute Auto 600 /uL (1100-4500); Lymphocytes Percent Auto 18.9 % (25-40); Mean Corpuscular HGB Conc 33.8 % (30-36); Mean Corpuscular Hemoglobin 33.3 PG (26-34); Mean Corpuscular Volume 98.4 fL (80-100); Monocytes Absolute Auto 300 /uL (0-900); Monocytes Percent Auto 8.8 % (3-14); Neutrophils Absolute Auto 2300 /uL (1500-7000); Neutrophils Percent Auto 70.5 % (50-75); Platelet Count 251 X10^3/uL (150-400); Red Blood Cell Count 3.47 X10^6/uL (4.0-5.2); Red Cell Distribution Width 15.6 % (11.6-14.8); White Blood Cell Count 3.3 X10^3/uL (4.5-11.0)
[2018-11-04 11:42] LABS: Alanine Aminotransferase 18 IU/L (9-52); Albumin 4.3 g/dL (3.5-5.0); Albumin Globulin Ratio 1.7 (1.0-2.8); Alkaline Phosphatase 60 U/L (38-126); Aspartate Aminotransferase 24 IU/L (14-36); BUN Creatinine Ratio 18.3 (6-22); Bilirubin Total 0.3 mg/dL (0.2-1.3); Blood Urea Nitrogen 11 mg/dL (7-17); Calcium 9.1 mg/dL (8.4-10.2); Carbon Dioxide 26 mmol/L (22-32); Chloride 105 mmol/L (98-107); Estimated Glomerular Filt Rate > 60.0 mL/min (>60); Globulin 2.6 g/dL (1.7-4.1); Glucose 92 mg/dL (80-110); HEMOLYSIS < 15 (0-50); Potassium 4.4 mmol/L (3.4-5.1); Sodium 139 mmol/L (137-145); Total Protein 6.9 g/dL (6.3-8.2)
== END ==
PROVIDERS: Family Provider Internal Medicine; PCP Internal Medicine; Visit Provider Internal Medicine
DX: Z12.31 Encounter for screening mammogram for malignant neoplasm of breast (principal); C49.9 Malignant neoplasm of connective and soft tissue, unspecified
CPT/HCPCS: 77063; 77067; 80053; 85025

== ENCOUNTER → 2018-12-29 11:30 | Outpatient (CLI) | payer MEDICARE, MEDICAID, SELFPAY ==
--- NOTE | 2018-12-29 11:33 | DI.CT.S_ITS ---
PROCEDURE: CT CHEST ABD PEL W CON INDICATIONS: f/u sarcoma TECHNIQUE: After the administration of oral and intravenous contrast, 5 mm thick sections acquired from the lung apices to the symphysis. 5 mm coronal and sagittal reformats were performed, with additional 7 mm coronal MIP reformats through the lungs. For radiation dose reduction, the following was used: automated exposure control, adjustment of mA and/or kV according to patient size. COMPARISON: [facility], CT, CT CHEST ABD PEL WO CON, 09/29/2018, 13:16. FINDINGS: Image quality: Excellent. CHEST: Lungs and pleura: Areas of masslike consolidation in the upper and lower lobes bilaterally are stable in the size, contour number. 5 mm nodule in the right upper lobe has resolved. Numerous small, bilateral lung nodules have decreased in size. No new lung nodules identified. No pleural effusions or pneumothorax. Central and peripheral airways appear patent and normal in caliber. Mediastinum: Heart size is normal. Atherosclerotic calcifications are noted in the aorta, great vessels and the coronary vasculature. No pericardial effusion. No mediastinal or hilar adenopathy by size criteria. Thoracic aorta and central pulmonary arteries are normal in size. Esophagus is normal in caliber. No hiatal hernia. Chest wall: Right chest wall Port-A-Cath is stable. No axillary or supraclavicular adenopathy by size criteria. Thyroid gland is within normal limits. ABDOMEN: Solid organs: Liver is normal in size and enhancement. Gallbladder contains a calcified gallstone. Biliary system is non dilated. Pancreas enhances normally. Spleen is normal in size and enhancement. No adrenal nodules. Kidneys demonstrate normal size and enhancement, without hydronephrosis. Peritoneum and bowel: Bowel loops demonstrate normal wall thickness and caliber. No free fluid or air. Nodes and vessels: No retroperitoneal or mesenteric adenopathy by size criteria. Aorta and inferior vena cava are normal in size. Miscellaneous: No ventral hernias. PELVIS: Genitourinary: Bladder wall thickness is normal. Miscellaneous: No inguinal hernias or adenopathy. Bones: Chronic right fifth and sixth rib fractures are stable. Chronic left fourth and fifth rib fractures are stable. No suspicious bony lesions. No vertebral body compression fractures. Spine degenerative disc disease and facet arthropathy. Convex left thoracolumbar spine curvature is stable. IMPRESSION: 1. Masslike consolidation involving the bilateral lungs stable compared to 09/29/2018. 2. Multiple, small, bilateral lung nodules either resolved or decreased in size compared to prior examination. 5 mm nodule right upper lobe has resolved since the prior examination. No new lung nodules. 3. No lymphadenopathy based on size criteria. 4. Cholelithiasis. 5. Atherosclerosis including the coronary vasculature. Dictated by: Amy Slaughter MD, PhD on 12/29/2018 at 15:26 Approved by: Amy Slaughter MD, PhD on 12/29/2018 at 15:56
== END ==
PROVIDERS: Family Provider Internal Medicine; PCP Internal Medicine
DX: C49.9 Malignant neoplasm of connective and soft tissue, unspecified (principal); R91.8 Other nonspecific abnormal finding of lung field; K80.20 Calculus of gallbladder without cholecystitis without obstruction; I25.10 Atherosclerotic heart disease of native coronary artery without angina pectoris
CPT/HCPCS: 36592; 71260; 74177; 80053; 85025; Q9967

== ENCOUNTER 2019-02-03 15:15 | Outpatient (RCR) | payer MEDICARE, MEDICAID, SELFPAY ==
--- NOTE | 2018-11-26 16:45 | PT.OPPOC ---
Current Diagnoses Unspecified osteoarthritis, unspecified site (11/26/18) Stiffness of unspecified joint, not elsewhere classified (11/26/18) Cervicalgia (11/26/18) Muscle weakness (generalized) (11/26/18) Provider Visit Care Team Role Provider Type Fuad Burkett MD Attending Provider Physician Family Provider Primary Care Provider Specialty: Internal Medicine Address: [address] [place] [address], [facility] Email: Plan Of Care PT-OP-T Assessment and Plan Start: 11/27/18 09:36 Freq: Status: Active Protocol: Document 11/26/18 16:00 DCW (Rec: 11/27/18 10:27 DCW [id number]) Physical Therapy Assessment Rehab Potential Rehabilitation Potential Good Evaluation Complexity Number of Personal Factors/Comorbidities 1-2 Number of Body Systems Impaired 3 Clinical Presentation at Evaluation Evolving Impairments Impairments Activity Tolerance Functional Activities Pain Posture ROM Strength Other Concerns Barriers to Rehabilitation Hx cancer Goals Three Impairment Limited ROM prevents pt from properly looking for traffic while in the car Group Work Program Aide Goal (LTG) Cervical ROM to improve to 45? bilaterally for rotation and 30? 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 Pt displays significant tightness in her upper trap, suboccipitals, and pecs, and weakness in her parascapular muscles and deep neck flexors. Pt also has a substantial forward head/ rounded shoulder posture. Pt should benefit from skilled therapy focusing on decreasing tone, improving strength, posture training, and increasing cervical ROM. Due to pt's history of cancer, pt should not undergo ultrasound treatment. Physical Therapy Plan Frequency and Duration Frequency of Treatment 2x/Week Duration of Treatment 2 months Plan of Care Start Date 11/26/18 Plan of Care End Date 01/26/19 Therapeutic Interventions Therapeutic Interventions Home Exercise Program Joint Mobilizations Manual Therapy Patient/Caregiver Education Soft Tissue Mobilization Therapeutic Activities Therapeutic Exercises Modalities Hot Packs Next Visit Focus/Plan Next Note Type Treatment Note Next Visit Plan Cervical strengthening, STM, ROM Plan of Care Dates Plan of Care Start Date 11/26/18 Plan of Care End Date 01/26/19 Please Sign and Return: I have reviewed this Plan of Care and certify that the skilled therapy services above are required to meet the patient?s needs. Physician Signature Date Printed Name and Credentials Clinical Instructor Signature Printed Name and Credentials
--- NOTE | 2018-11-26 16:45 | PT.OIE ---
Current Diagnoses Unspecified osteoarthritis, unspecified site (11/26/18) Stiffness of unspecified joint, not elsewhere classified (11/26/18) Cervicalgia (11/26/18) Muscle weakness (generalized) (11/26/18) Past Surgical History (Last Reviewed 10/16/18 @ 19:33 by Homa Soares MD) Status post dilation and curettage Provider Visit Care Team Role Provider Type Fuad Burkett MD Attending Provider Physician Family Provider Primary Care Provider Specialty: Internal Medicine Address: [address] [place] [address], [facility] Email: Physical Therapy Initial Evaluation PT-OP-A Visit Information Start: 11/27/18 09:36 Freq: Status: Active Protocol: Document 11/26/18 16:00 DCW (Rec: 11/27/18 10:27 [facility] [id number]) Out-Patient Physical Therapy Visit Information Visit Information Visit Type Initial Evaluation Visit Start Time 16:00 Visit Stop Time 16:45 Total Visit Minutes 45 Visit Number 1 Number of MEDICAID SPECIALIST Visits 0 Evaluation Information Evaluation Date 11/26/18 PT-OP-B Current Condition Start: 11/27/18 09:36 Freq: Status: Active Protocol: Document 11/26/18 16:00 DCW (Rec: 11/27/18 10:27 [facility] [id number]) Current Condition History of Current Condition Onset Date Multi-year history Current Complaints Cervical stiffness, headaches, neck pain History of Current Condition Pt is a 73 year old female presenting with a long- standing history of cervical pain and stiffness, which she notes has been worsening over the last six months. Pt has previously been treated at this clinic for frozen shoulder, but reports her shoulder have been fixed, and they're fine now. Pt is not exactly thrilled to be returning to therapy, and feels like her son, who is also present at the evaluation , is forcing her to be here. Pt additionally has a complicated medical history, with long-standing treatment for Leiomyosarcoma, a soft- tissue cancer, however has previously reported that she is in clinical remission. Pt reports her neck pain creates constant headaches, and she admits to difficulty doing knitting or cross-stitching for more than one hour.Pt also reports that she has difficulty turning her head left, which is difficult, because she helps her son look for traffic while he is driving. 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 Current Functional Impairments (Reported) Functional Limitations- Recreation/ Neck pain limits ability to Hobbies knit or cross-stitch longer than one hour Functional Limitations- Other Pt unable to turn her head left to look for traffic while her son is driving PT-OP-C Subjective Start: 11/27/18 09:36 Freq: Status: Active Protocol: Document 11/26/18 16:00 DCW (Rec: 11/27/18 10:27 [facility] [id number]) OP-PT Pain Assessment Pain Assessment Grid Paper Pain Assessment Grid Completed Yes Location Bilateral Neck Intensity 4 Scale Used Numeric (1 - 10) Description Sharp Tightness Pain Aggravating Factors Position Activity PT-OP-F Manual Assessment Start: 11/27/18 09:36 Freq: Status: Active Protocol: Document 11/26/18 16:00 DCW (Rec: 11/27/18 10:27 [facility] [id number]) Manual Assessments Soft Tissue Assessment Soft Tissue Mobility Assessment Moderate tone bilateral pecs, moderate tone bilateral upper trap, severe tone suboccipitals Tenderness 2/4: pain with wincing in pecs and upper trap , 3/4: wincing and withdraw in suboccipitals Joint Mobility Assessment Joint Mobility Assessment Hypomobility throughout entire cervical spine PT-OP-J Posture/Palpation/Skin Start: 11/27/18 09:36 Freq: Status: Active Protocol: Document 11/26/18 16:00 DCW (Rec: 11/27/18 10:27 [facility] [id number]) Posture Evaluation Position Sitting Evaluation View Lateral Head/C-Spine Posture Extended Excess Extension Forward Head T-Spine Posture Increased Kyphosis Shoulder Posture (L) Rounded (R) Rounded Scapula Posture (L) Protracted (R) Protracted (L) Winged (R) Winged Palpation Assessment Location Upper Trap Palpation Location Upper Trap Palpation Findings Soft Tissue Tightness Spasm Muscle Guarding Tenderness Trigger Point Suboccipitals Palpation Location Bilateral suboccipitals Palpation Findings Soft Tissue Tightness Spasm Tenderness Trigger Point PT-OP-K Range of Motion Start: 11/27/18 09:36 Freq: Status: Active Protocol: Document 11/26/18 16:00 DCW (Rec: 11/27/18 10:27 [id number] Cervical Spine Range of Motion Cervical Spine Active Degrees Testing Position Sitting Flexion 35 Extension 20 Rotation Left 32 Rotation Right 15 Lateral Flexion Left 22 Lateral Flexion Right 13 ROM Limitations Soft Tissue Tightness Bony Restriction Muscle Weakness Muscle Tone Pain PT-OP-L Special Tests Start: 11/27/18 09:36 Freq: Status: Active Protocol: Document 11/26/18 16:00 DCW (Rec: 11/27/18 10:27 [facility] [id number]) Special Tests Cervical Spine Special Tests Spurling's Test Test Results Right positive, left negative Comments positive for pain, not radicular symptoms Upper Limb Tension Test Test Results Negative Passive Neck Flexion Test Results Positive for cervical pain Foraminal Compression Test Results Negative PT-OP-M Strength Start: 11/27/18 09:36 Freq: Status: Active Protocol: Document 11/26/18 16:00 DCW (Rec: 11/27/18 10:27 [id number] Cervical Spine Strength Cervical Spine Manual Muscle Testing Testing Position Supine Comments Chin tuck/head lift results in immediate shaking and ability to hold position for 2 seconds, deep neck flexors 3+/ 5 PT-OP-Q Treatments Start: 11/27/18 09:36 Freq: Status: Active Protocol: Document 11/26/18 16:00 DCW (Rec: 11/27/18 10:27 [facility] [id number]) Therapeutic Exercises Supine Exercises Horizontal Abduction Supine Exercise Name Horizontal Abduction Side bilateral Resistance Lv 1 Equipment Used T-band Supine Punch Supine Exercise Name Supine Punch Side bilateral Resistance 0# Chin Tuck/Head Lift Supine Exercise Name Chin Tuck/Head Lift Manual Therapy Treatment Soft Tissue Mobilization Upper Trap Body Location Bilateral Upper Trap Mobilization Type Strain/Counterstrain Sustained Pressure Trigger Point Release Intensity/Depth Moderate Body Position Supine Suboccipitals Body Location Bilateral suboccipitals Mobilization Type Sustained Pressure Trigger Point Release Intensity/Depth Moderate Body Position Supine PT-OP-T Assessment and Plan Start: 11/27/18 09:36 Freq: Status: Active Protocol: Document 11/26/18 16:00 DCW (Rec: 11/27/18 10:27 [facility] [id number]) Physical Therapy Assessment Rehab Potential Rehabilitation Potential Good Evaluation Complexity Number of Personal Factors/Comorbidities 1-2 Number of Body Systems Impaired 3 Clinical Presentation at Evaluation Evolving Impairments Impairments Activity Tolerance Functional Activities Pain Posture ROM Strength Other Concerns Barriers to Rehabilitation Hx cancer Goals Three Impairment Limited ROM prevents pt from properly looking for traffic while in the car Correction Goal (LTG) Cervical ROM to improve to 45? bilaterally for rotation and 30? 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 Pt displays significant tightness in her upper trap, suboccipitals, and pecs, and weakness in her parascapular muscles and deep neck flexors. Pt also has a substantial forward head/ rounded shoulder posture. Pt should benefit from skilled therapy focusing on decreasing tone, improving strength, posture training, and increasing cervical ROM. Due to pt's history of cancer, pt should not undergo ultrasound treatment. Physical Therapy Plan Frequency and Duration Frequency of Treatment 2x/Week Duration of Treatment 2 months Plan of Care Start Date 11/26/18 Plan of Care End Date 01/26/19 Therapeutic Interventions Therapeutic Interventions Home Exercise Program Joint Mobilizations Manual Therapy Patient/Caregiver Education Soft Tissue Mobilization Therapeutic Activities Therapeutic Exercises Modalities Hot Packs Next Visit Focus/Plan Next Note Type Treatment Note Next Visit Plan Cervical strengthening, STM, ROM
--- NOTE | 2018-12-18 16:51 | PT.OTN ---
Current Diagnoses Unspecified osteoarthritis, unspecified site (12/18/18) Cervicalgia (12/18/18) Physical Therapy Treatment Note PT-OP-A Visit Information Start: 11/27/18 09:36 Freq: Status: Active Protocol: Document 12/18/18 16:00 DCW (Rec: 12/18/18 16:51 DCW [id number]) Out-Patient Physical Therapy Visit Information Visit Information Visit Type Aquatic Treatment Note Visit Start Time 16:00 Visit Stop Time 16:45 Total Visit Minutes 45 Visit Number 2 Number of TONGER Visits 0 Evaluation Information Evaluation Date 11/26/18 PT-OP-B Current Condition Start: 11/27/18 09:36 Freq: Status: Active Protocol: Document 11/26/18 16:00 DCW (Rec: 11/27/18 10:27 DCW [id number]) Current Condition History of Current Condition Onset Date Multi-year history Current Complaints Cervical stiffness, headaches, neck pain History of Current Condition Pt is a 73 year old female presenting with a long- standing history of cervical pain and stiffness, which she notes has been worsening over the last six months. Pt has previously been treated at this clinic for frozen shoulder, but reports her shoulder have been fixed, and they're fine now. Pt is not exactly thrilled to be returning to therapy, and feels like her son, who is also present at the evaluation , is forcing her to be here. Pt additionally has a complicated medical history, with long-standing treatment for Leiomyosarcoma, a soft- tissue cancer, however has previously reported that she is in clinical remission. Pt reports her neck pain creates constant headaches, and she admits to difficulty doing knitting or cross-stitching for more than one hour.Pt also reports that she has difficulty turning her head left, which is difficult, because she helps her son look for traffic while he is driving. 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 Current Functional Impairments (Reported) Functional Limitations- Recreation/ Neck pain limits ability to Hobbies knit or cross-stitch longer than one hour Functional Limitations- Other Pt unable to turn her head left to look for traffic while her son is driving PT-OP-C Subjective Start: 11/27/18 09:36 Freq: Status: Active Protocol: Document 12/18/18 16:00 DCW (Rec: 12/18/18 16:51 DCW [id number]) OP-PT Subjective Patient Comments Patient Comments Pt's son reports pt has been sore in her neck and shoulders recently PT-OP-F Manual Assessment Start: 11/27/18 09:36 Freq: Status: Active Protocol: Document 11/26/18 16:00 DCW (Rec: 11/27/18 10:27 DCW [id number]) Manual Assessments Soft Tissue Assessment Soft Tissue Mobility Assessment Moderate tone bilateral pecs, moderate tone bilateral upper trap, severe tone suboccipitals Tenderness 2/4: pain with wincing in pecs and upper trap , 3/4: wincing and withdraw in suboccipitals Joint Mobility Assessment Joint Mobility Assessment Hypomobility throughout entire cervical spine PT-OP-J Posture/Palpation/Skin Start: 11/27/18 09:36 Freq: Status: Active Protocol: Document 11/26/18 16:00 DCW (Rec: 11/27/18 10:27 DCW [id number]) Posture Evaluation Position Sitting Evaluation View Lateral Head/C-Spine Posture Extended Excess Extension Forward Head T-Spine Posture Increased Kyphosis Shoulder Posture (L) Rounded (R) Rounded Scapula Posture (L) Protracted (R) Protracted (L) Winged (R) Winged Palpation Assessment Location Upper Trap Palpation Location Upper Trap Palpation Findings Soft Tissue Tightness Spasm Muscle Guarding Tenderness Trigger Point Suboccipitals Palpation Location Bilateral suboccipitals Palpation Findings Soft Tissue Tightness Spasm Tenderness Trigger Point PT-OP-K Range of Motion Start: 11/27/18 09:36 Freq: Status: Active Protocol: Document 11/26/18 16:00 DCW (Rec: 11/27/18 10:27 DCW [id number]) Cervical Spine Range of Motion Cervical Spine Active Degrees Testing Position Sitting Flexion 35 Extension 20 Rotation Left 32 Rotation Right 15 Lateral Flexion Left 22 Lateral Flexion Right 13 ROM Limitations Soft Tissue Tightness Bony Restriction Muscle Weakness Muscle Tone Pain PT-OP-L Special Tests Start: 11/27/18 09:36 Freq: Status: Active Protocol: Document 11/26/18 16:00 DCW (Rec: 11/27/18 10:27 DCW [id number]) Special Tests Cervical Spine Special Tests Spurling's Test Test Results Right positive, left negative Comments positive for pain, not radicular symptoms Upper Limb Tension Test Test Results Negative Passive Neck Flexion Test Results Positive for cervical pain Foraminal Compression Test Results Negative PT-OP-M Strength Start: 11/27/18 09:36 Freq: Status: Active Protocol: Document 11/26/18 16:00 DCW (Rec: 11/27/18 10:27 DCW [id number]) Cervical Spine Strength Cervical Spine Manual Muscle Testing Testing Position Supine Comments Chin tuck/head lift results in immediate shaking and ability to hold position for 2 seconds, deep neck flexors 3+/ 5 PT-OP-Q Treatments Start: 11/27/18 09:36 Freq: Status: Active Protocol: Document 12/18/18 16:00 DCW (Rec: 12/18/18 16:51 DCW [id number]) Therapeutic Exercises Supine Exercises Upper Trap Stretch Supine Exercise Name UT stretch Side bilateral Comments manual Shoulder Flexion Supine Exercise Name Flexion /c wand Side bilateral Resistance 3# Horizontal Adduction Supine Exercise Name Horizontal Adduction Side bilateral Resistance 3# Supine Punch Supine Exercise Name Supine Punch Side bilateral Resistance 3# Standing Exercises Scapular pro/retraction Standing Exercise Name Wall push-up position, scapular pro/retraction Pec Stretch Standing Exercise Name Corner stretch Side bilateral Manual Therapy Treatment Soft Tissue Mobilization Pec STM Body Location L Pec STM Mobilization Type Sustained Pressure Trigger Point Release Intensity/Depth Moderate Comments Avoid right secondary to port placement Upper Trap Body Location Bilateral Upper Trap Mobilization Type Strain/Counterstrain Sustained Pressure Trigger Point Release Intensity/Depth Moderate Body Position Supine Suboccipitals Body Location Bilateral suboccipitals Mobilization Type Sustained Pressure Trigger Point Release Intensity/Depth Moderate Body Position Supine PT-OP-T Assessment and Plan Start: 11/27/18 09:36 Freq: Status: Active Protocol: Document 12/18/18 16:00 DCW (Rec: 12/18/18 16:51 DCW [id number]) Physical Therapy Assessment Impairments Impairments Activity Tolerance Functional Activities Pain Posture ROM Strength Other Concerns Barriers to Rehabilitation Hx cancer Goals Three Impairment Limited ROM prevents pt from properly looking for traffic while in the car Plumber And Tinner Goal (LTG) Cervical ROM to improve to 45? bilaterally for rotation and 30? lateral flexion LTG Duration 01/26/19 Two Impairment Pt unable to participate in knitting/cross-stitching longer than 1 hour Residential Goal (LTG) Pt to tolerate knitting and cross-stitching for two hours LTG Duration 01/26/19 One Impairment Pt does not have an appropriate home exercise program Short Term Goal (STG) Pt to be independent and compliant with an appropriate HEP STG Duration 12/27/18 Assessment Summary Assessment Pt tolerated treatment well today, did not increased pain during STM of her right upper trap, noted it was much more tender R vs L. Physical Therapy Plan Frequency and Duration Frequency of Treatment 2x/Week Duration of Treatment 2 months Plan of Care Start Date 11/26/18 Plan of Care End Date 01/26/19 Therapeutic Interventions Therapeutic Interventions Home Exercise Program Joint Mobilizations Manual Therapy Patient/Caregiver Education Soft Tissue Mobilization Therapeutic Activities Therapeutic Exercises Modalities Hot Packs Next Visit Focus/Plan Next Note Type Treatment Note Next Visit Plan Cervical strengthening, STM, ROM
--- NOTE | 2018-12-23 17:52 | PT.OTN ---
Current Diagnoses Unspecified osteoarthritis, unspecified site (12/23/18) Cervicalgia (12/23/18) Physical Therapy Treatment Note PT-OP-A Visit Information Start: 11/27/18 09:36 Freq: Status: Active Protocol: Document 12/23/18 16:45 DCW (Rec: 12/23/18 17:52 DCW [id number]) Out-Patient Physical Therapy Visit Information Visit Information Visit Type Treatment Note Visit Start Time 16:45 Visit Stop Time 17:30 Total Visit Minutes 45 Visit Number 3 Number of BUSINESS ETHICS PROFESSOR Visits 0 Evaluation Information Evaluation Date 11/26/18 PT-OP-B Current Condition Start: 11/27/18 09:36 Freq: Status: Active Protocol: Document 11/26/18 16:00 DCW (Rec: 11/27/18 10:27 DCW [id number]) Current Condition History of Current Condition Onset Date Multi-year history Current Complaints Cervical stiffness, headaches, neck pain History of Current Condition Pt is a 73 year old female presenting with a long- standing history of cervical pain and stiffness, which she notes has been worsening over the last six months. Pt has previously been treated at this clinic for frozen shoulder, but reports her shoulder have been fixed, and they're fine now. Pt is not exactly thrilled to be returning to therapy, and feels like her son, who is also present at the evaluation , is forcing her to be here. Pt additionally has a complicated medical history, with long-standing treatment for Leiomyosarcoma, a soft- tissue cancer, however has previously reported that she is in clinical remission. Pt reports her neck pain creates constant headaches, and she admits to difficulty doing knitting or cross-stitching for more than one hour.Pt also reports that she has difficulty turning her head left, which is difficult, because she helps her son look for traffic while he is driving. 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 Current Functional Impairments (Reported) Functional Limitations- Recreation/ Neck pain limits ability to Hobbies knit or cross-stitch longer than one hour Functional Limitations- Other Pt unable to turn her head left to look for traffic while her son is driving PT-OP-C Subjective Start: 11/27/18 09:36 Freq: Status: Active Protocol: Document 12/23/18 16:45 DCW (Rec: 12/23/18 17:52 DCW [id number]) OP-PT Subjective Patient Comments Patient Comments Pt's son reports she has been doing very well working on improving her posture, and her neck has been feeling better with her HEP. PT-OP-F Manual Assessment Start: 11/27/18 09:36 Freq: Status: Active Protocol: Document 11/26/18 16:00 DCW (Rec: 11/27/18 10:27 DCW [id number]) Manual Assessments Soft Tissue Assessment Soft Tissue Mobility Assessment Moderate tone bilateral pecs, moderate tone bilateral upper trap, severe tone suboccipitals Tenderness 2/4: pain with wincing in pecs and upper trap , 3/4: wincing and withdraw in suboccipitals Joint Mobility Assessment Joint Mobility Assessment Hypomobility throughout entire cervical spine PT-OP-J Posture/Palpation/Skin Start: 11/27/18 09:36 Freq: Status: Active Protocol: Document 11/26/18 16:00 DCW (Rec: 11/27/18 10:27 DCW [id number]) Posture Evaluation Position Sitting Evaluation View Lateral Head/C-Spine Posture Extended Excess Extension Forward Head T-Spine Posture Increased Kyphosis Shoulder Posture (L) Rounded (R) Rounded Scapula Posture (L) Protracted (R) Protracted (L) Winged (R) Winged Palpation Assessment Location Upper Trap Palpation Location Upper Trap Palpation Findings Soft Tissue Tightness Spasm Muscle Guarding Tenderness Trigger Point Suboccipitals Palpation Location Bilateral suboccipitals Palpation Findings Soft Tissue Tightness Spasm Tenderness Trigger Point PT-OP-K Range of Motion Start: 11/27/18 09:36 Freq: Status: Active Protocol: Document 11/26/18 16:00 DCW (Rec: 11/27/18 10:27 DCW [id number]) Cervical Spine Range of Motion Cervical Spine Active Degrees Testing Position Sitting Flexion 35 Extension 20 Rotation Left 32 Rotation Right 15 Lateral Flexion Left 22 Lateral Flexion Right 13 ROM Limitations Soft Tissue Tightness Bony Restriction Muscle Weakness Muscle Tone Pain PT-OP-L Special Tests Start: 11/27/18 09:36 Freq: Status: Active Protocol: Document 11/26/18 16:00 DCW (Rec: 11/27/18 10:27 DCW [id number]) Special Tests Cervical Spine Special Tests Spurling's Test Test Results Right positive, left negative Comments positive for pain, not radicular symptoms Upper Limb Tension Test Test Results Negative Passive Neck Flexion Test Results Positive for cervical pain Foraminal Compression Test Results Negative PT-OP-M Strength Start: 11/27/18 09:36 Freq: Status: Active Protocol: Document 11/26/18 16:00 DCW (Rec: 11/27/18 10:27 DCW [id number]) Cervical Spine Strength Cervical Spine Manual Muscle Testing Testing Position Supine Comments Chin tuck/head lift results in immediate shaking and ability to hold position for 2 seconds, deep neck flexors 3+/ 5 PT-OP-Q Treatments Start: 11/27/18 09:36 Freq: Status: Active Protocol: Document 12/23/18 16:45 DCW (Rec: 12/23/18 17:52 DC [id number]) Manual Therapy Treatment Soft Tissue Mobilization Parascapulars Body Location Left Parascapulars Mobilization Type Strumming Sustained Pressure Intensity/Depth Moderate Body Position Supine Pec STM Body Location L Pec STM Mobilization Type Sustained Pressure Trigger Point Release Intensity/Depth Moderate Comments Avoid right secondary to port placement Upper Trap Body Location Bilateral Upper Trap Mobilization Type Strain/Counterstrain Sustained Pressure Trigger Point Release Intensity/Depth Moderate Body Position Supine Suboccipitals Body Location Bilateral suboccipitals Mobilization Type Sustained Pressure Trigger Point Release Intensity/Depth Moderate Body Position Supine PT-OP-T Assessment and Plan Start: 11/27/18 09:36 Freq: Status: Active Protocol: Document 12/23/18 16:45 DCW (Rec: 12/23/18 17:52 DCW [id number]) Physical Therapy Assessment Impairments Impairments Activity Tolerance Functional Activities Pain Posture ROM Strength Other Concerns Barriers to Rehabilitation Hx cancer Goals Three Impairment Limited ROM prevents pt from properly looking for traffic while in the car Nursing Home Goal (LTG) Cervical ROM to improve to 45? bilaterally for rotation and 30? lateral flexion LTG Duration 01/26/19 Two Impairment Pt unable to participate in knitting/cross-stitching longer than 1 hour Commercial Litigation Attorney Goal (LTG) Pt to tolerate knitting and cross-stitching for two hours LTG Duration 01/26/19 One Impairment Pt does not have an appropriate home exercise program Short Term Goal (STG) Pt to be independent and compliant with an appropriate HEP STG Duration 12/27/18 Assessment Summary Assessment Pt reported that following her last visit, she was very happy with how much right rotation she had in her nexk, but after a day of weeding, it had returned to normal. Physical Therapy Plan Frequency and Duration Frequency of Treatment 2x/Week Duration of Treatment 2 months Plan of Care Start Date 11/26/18 Plan of Care End Date 01/26/19 Therapeutic Interventions Therapeutic Interventions Home Exercise Program Joint Mobilizations Manual Therapy Patient/Caregiver Education Soft Tissue Mobilization Therapeutic Activities Therapeutic Exercises Modalities Hot Packs Next Visit Focus/Plan Next Note Type Treatment Note Next Visit Plan Cervical strengthening, STM, ROM
--- NOTE | 2018-12-30 17:03 | PT.OTN ---
Current Diagnoses Unspecified osteoarthritis, unspecified site (12/30/18) Cervicalgia (12/30/18) Physical Therapy Treatment Note PT-OP-A Visit Information Start: 11/27/18 09:36 Freq: Status: Active Protocol: Document 12/30/18 16:00 DCW (Rec: 12/30/18 17:03 DC [id number]) Out-Patient Physical Therapy Visit Information Visit Information Visit Type Treatment Note Visit Start Time 16:00 Visit Stop Time 16:45 Total Visit Minutes 45 Visit Number 4 Number of PLUGMAN Visits 0 Evaluation Information Evaluation Date 11/26/18 PT-OP-B Current Condition Start: 11/27/18 09:36 Freq: Status: Active Protocol: Document 11/26/18 16:00 DCW (Rec: 11/27/18 10:27 DCW [id number]) Current Condition History of Current Condition Onset Date Multi-year history Current Complaints Cervical stiffness, headaches, neck pain History of Current Condition Pt is a 73 year old female presenting with a long- standing history of cervical pain and stiffness, which she notes has been worsening over the last six months. Pt has previously been treated at this clinic for frozen shoulder, but reports her shoulder have been fixed, and they're fine now. Pt is not exactly thrilled to be returning to therapy, and feels like her son, who is also present at the evaluation , is forcing her to be here. Pt additionally has a complicated medical history, with long-standing treatment for Leiomyosarcoma, a soft- tissue cancer, however has previously reported that she is in clinical remission. Pt reports her neck pain creates constant headaches, and she admits to difficulty doing knitting or cross-stitching for more than one hour.Pt also reports that she has difficulty turning her head left, which is difficult, because she helps her son look for traffic while he is driving. 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 Current Functional Impairments (Reported) Functional Limitations- Recreation/ Neck pain limits ability to Hobbies knit or cross-stitch longer than one hour Functional Limitations- Other Pt unable to turn her head left to look for traffic while her son is driving PT-OP-C Subjective Start: 11/27/18 09:36 Freq: Status: Active Protocol: Document 12/30/18 16:00 DCW (Rec: 12/30/18 17:03 DCW [id number]) OP-PT Subjective Patient Comments Patient Comments Pt reports that when she was receiving her scan in Oncology yesterday, she had to lift her arm up above her head, and she had a very difficult time performing this action. PT-OP-F Manual Assessment Start: 11/27/18 09:36 Freq: Status: Active Protocol: Document 11/26/18 16:00 DCW (Rec: 11/27/18 10:27 [facility] [id number]) Manual Assessments Soft Tissue Assessment Soft Tissue Mobility Assessment Moderate tone bilateral pecs, moderate tone bilateral upper trap, severe tone suboccipitals Tenderness 2/4: pain with wincing in pecs and upper trap , 3/4: wincing and withdraw in suboccipitals Joint Mobility Assessment Joint Mobility Assessment Hypomobility throughout entire cervical spine PT-OP-J Posture/Palpation/Skin Start: 11/27/18 09:36 Freq: Status: Active Protocol: Document 11/26/18 16:00 DCW (Rec: 11/27/18 10:27 [facility] [id number]) Posture Evaluation Position Sitting Evaluation View Lateral Head/C-Spine Posture Extended Excess Extension Forward Head T-Spine Posture Increased Kyphosis Shoulder Posture (L) Rounded (R) Rounded Scapula Posture (L) Protracted (R) Protracted (L) Winged (R) Winged Palpation Assessment Location Upper Trap Palpation Location Upper Trap Palpation Findings Soft Tissue Tightness Spasm Muscle Guarding Tenderness Trigger Point Suboccipitals Palpation Location Bilateral suboccipitals Palpation Findings Soft Tissue Tightness Spasm Tenderness Trigger Point PT-OP-K Range of Motion Start: 11/27/18 09:36 Freq: Status: Active Protocol: Document 11/26/18 16:00 DCW (Rec: 11/27/18 10:27 [facility] [id number]) Cervical Spine Range of Motion Cervical Spine Active Degrees Testing Position Sitting Flexion 35 Extension 20 Rotation Left 32 Rotation Right 15 Lateral Flexion Left 22 Lateral Flexion Right 13 ROM Limitations Soft Tissue Tightness Bony Restriction Muscle Weakness Muscle Tone Pain PT-OP-L Special Tests Start: 11/27/18 09:36 Freq: Status: Active Protocol: Document 11/26/18 16:00 DCW (Rec: 11/27/18 10:27 [facility] [id number]) Special Tests Cervical Spine Special Tests Spurling's Test Test Results Right positive, left negative Comments positive for pain, not radicular symptoms Upper Limb Tension Test Test Results Negative Passive Neck Flexion Test Results Positive for cervical pain Foraminal Compression Test Results Negative PT-OP-M Strength Start: 11/27/18 09:36 Freq: Status: Active Protocol: Document 11/26/18 16:00 DCW (Rec: 11/27/18 10:27 [facility] [id number]) Cervical Spine Strength Cervical Spine Manual Muscle Testing Testing Position Supine Comments Chin tuck/head lift results in immediate shaking and ability to hold position for 2 seconds, deep neck flexors 3+/ 5 PT-OP-Q Treatments Start: 11/27/18 09:36 Freq: Status: Active Protocol: Document 12/30/18 16:00 DCW (Rec: 12/30/18 17:03 DCW [id number]) Therapeutic Exercises Supine Exercises Shoulder Flexion Supine Exercise Name Flexion /c wand Side bilateral Resistance 4# Supine Punch Supine Exercise Name Supine Punch /c wand Side bilateral Resistance 4# Sidelying Exercises Shoulder Abduction Sidelying Exercise Name Abduction Side left Resistance 4# External Rotation Sidelying Exercise Name Sidelying ER Side left Resistance 4# Standing Exercises ER stretch Standing Exercise Name ER stretch /c wand Shoulder Extension Standing Exercise Name Extension /c wand Side bilateral Resistance 4# Manual Therapy Treatment Soft Tissue Mobilization Parascapulars Body Location Left Parascapulars Mobilization Type Strumming Sustained Pressure Intensity/Depth Moderate Body Position Supine Pec STM Body Location L Pec STM Mobilization Type Sustained Pressure Trigger Point Release Intensity/Depth Moderate Comments Avoid right secondary to port placement Upper Trap Body Location Bilateral Upper Trap Mobilization Type Strain/Counterstrain Sustained Pressure Trigger Point Release Intensity/Depth Moderate Body Position Supine Suboccipitals Body Location Bilateral suboccipitals Mobilization Type Sustained Pressure Trigger Point Release Intensity/Depth Moderate Body Position Supine PT-OP-T Assessment and Plan Start: 11/27/18 09:36 Freq: Status: Active Protocol: Document 12/30/18 16:00 DCW (Rec: 12/30/18 17:03 DCW [id number]) Physical Therapy Assessment Impairments Impairments Activity Tolerance Functional Activities Pain Posture ROM Strength Other Concerns Barriers to Rehabilitation Hx cancer Goals Three Impairment Limited ROM prevents pt from properly looking for traffic while in the car Retirement Goal (LTG) Cervical ROM to improve to 45? bilaterally for rotation and 30? lateral flexion LTG Duration 01/26/19 Two Impairment Pt unable to participate in knitting/cross-stitching longer than 1 hour Auto Overhauler Goal (LTG) Pt to tolerate knitting and cross-stitching for two hours LTG Duration 01/26/19 One Impairment Pt does not have an appropriate home exercise program Short Term Goal (STG) Pt to be independent and compliant with an appropriate HEP STG Duration 12/27/18 Assessment Summary Assessment Pt in very good mood after an excellent Oncology appointment yesterday, is now open to the possibility of potentially thinking about looking into shoulder surgery. Physical Therapy Plan Frequency and Duration Frequency of Treatment 2x/Week Duration of Treatment 2 months Plan of Care Start Date 11/26/18 Plan of Care End Date 01/26/19 Therapeutic Interventions Therapeutic Interventions Home Exercise Program Joint Mobilizations Manual Therapy Patient/Caregiver Education Soft Tissue Mobilization Therapeutic Activities Therapeutic Exercises Modalities Hot Packs Next Visit Focus/Plan Next Note Type Treatment Note Next Visit Plan Cervical strengthening, STM, ROM
--- NOTE | 2019-01-06 17:45 | PT.OTN ---
Current Diagnoses Unspecified osteoarthritis, unspecified site (01/06/19) Cervicalgia (01/06/19) Physical Therapy Treatment Note PT-OP-A Visit Information Start: 11/27/18 09:36 Freq: Status: Active Protocol: Document 01/06/19 16:00 DCW (Rec: 01/06/19 17:45 DCW [id number]) Out-Patient Physical Therapy Visit Information Visit Information Visit Type Treatment Note Visit Start Time 16:00 Visit Stop Time 16:45 Total Visit Minutes 45 Visit Number 5 Number of REPRESENTATIVE Visits 0 Evaluation Information Evaluation Date 11/26/18 PT-OP-B Current Condition Start: 11/27/18 09:36 Freq: Status: Active Protocol: Document 11/26/18 16:00 DCW (Rec: 11/27/18 10:27 DCW [id number]) Current Condition History of Current Condition Onset Date Multi-year history Current Complaints Cervical stiffness, headaches, neck pain History of Current Condition Pt is a 73 year old female presenting with a long- standing history of cervical pain and stiffness, which she notes has been worsening over the last six months. Pt has previously been treated at this clinic for frozen shoulder, but reports her shoulder have been fixed, and they're fine now. Pt is not exactly thrilled to be returning to therapy, and feels like her son, who is also present at the evaluation , is forcing her to be here. Pt additionally has a complicated medical history, with long-standing treatment for Leiomyosarcoma, a soft- tissue cancer, however has previously reported that she is in clinical remission. Pt reports her neck pain creates constant headaches, and she admits to difficulty doing knitting or cross-stitching for more than one hour.Pt also reports that she has difficulty turning her head left, which is difficult, because she helps her son look for traffic while he is driving. 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 Current Functional Impairments (Reported) Functional Limitations- Recreation/ Neck pain limits ability to Hobbies knit or cross-stitch longer than one hour Functional Limitations- Other Pt unable to turn her head left to look for traffic while her son is driving PT-OP-C Subjective Start: 11/27/18 09:36 Freq: Status: Active Protocol: Document 01/06/19 16:00 DCW (Rec: 01/06/19 17:45 DCW [id number]) OP-PT Subjective Patient Comments Patient Comments Pt notes that she hasn't noticed much improvement yet, however her son reports noticing a large improvement in her mobility and ADL participation. PT-OP-F Manual Assessment Start: 11/27/18 09:36 Freq: Status: Active Protocol: Document 11/26/18 16:00 DCW (Rec: 11/27/18 10:27 DCW [id number]) Manual Assessments Soft Tissue Assessment Soft Tissue Mobility Assessment Moderate tone bilateral pecs, moderate tone bilateral upper trap, severe tone suboccipitals Tenderness 2/4: pain with wincing in pecs and upper trap , 3/4: wincing and withdraw in suboccipitals Joint Mobility Assessment Joint Mobility Assessment Hypomobility throughout entire cervical spine PT-OP-J Posture/Palpation/Skin Start: 11/27/18 09:36 Freq: Status: Active Protocol: Document 11/26/18 16:00 DCW (Rec: 11/27/18 10:27 DCW [id number]) Posture Evaluation Position Sitting Evaluation View Lateral Head/C-Spine Posture Extended Excess Extension Forward Head T-Spine Posture Increased Kyphosis Shoulder Posture (L) Rounded (R) Rounded Scapula Posture (L) Protracted (R) Protracted (L) Winged (R) Winged Palpation Assessment Location Upper Trap Palpation Location Upper Trap Palpation Findings Soft Tissue Tightness Spasm Muscle Guarding Tenderness Trigger Point Suboccipitals Palpation Location Bilateral suboccipitals Palpation Findings Soft Tissue Tightness Spasm Tenderness Trigger Point PT-OP-K Range of Motion Start: 11/27/18 09:36 Freq: Status: Active Protocol: Document 01/06/19 16:00 DCW (Rec: 01/06/19 17:39 DCW [id number]) Cervical Spine Range of Motion Cervical Spine Active Degrees Testing Position Sitting Flexion 53 Extension 38 Rotation Left 53 Rotation Right 45 Lateral Flexion Left 40 Lateral Flexion Right 28 ROM Limitations Soft Tissue Tightness Bony Restriction Muscle Weakness Muscle Tone Pain PT-OP-L Special Tests Start: 11/27/18 09:36 Freq: Status: Active Protocol: Document 11/26/18 16:00 DCW (Rec: 11/27/18 10:27 DCW [id number]) Special Tests Cervical Spine Special Tests Spurling's Test Test Results Right positive, left negative Comments positive for pain, not radicular symptoms Upper Limb Tension Test Test Results Negative Passive Neck Flexion Test Results Positive for cervical pain Foraminal Compression Test Results Negative PT-OP-M Strength Start: 11/27/18 09:36 Freq: Status: Active Protocol: Document 11/26/18 16:00 DCW (Rec: 11/27/18 10:27 GAW [id number]) Cervical Spine Strength Cervical Spine Manual Muscle Testing Testing Position Supine Comments Chin tuck/head lift results in immediate shaking and ability to hold position for 2 seconds, deep neck flexors 3+/ 5 PT-OP-Q Treatments Start: 11/27/18 09:36 Freq: Status: Active Protocol: Document 01/06/19 16:00 DCW (Rec: 01/06/19 17:45 DCW [id number]) Manual Therapy Treatment Soft Tissue Mobilization Parascapulars Body Location Left Parascapulars Mobilization Type Strumming Sustained Pressure Intensity/Depth Moderate Body Position Supine Pec STM Body Location L Pec STM Mobilization Type Sustained Pressure Trigger Point Release Intensity/Depth Moderate Comments Avoid right secondary to port placement Upper Trap Body Location Bilateral Upper Trap Mobilization Type Strain/Counterstrain Sustained Pressure Trigger Point Release Intensity/Depth Moderate Body Position Supine Suboccipitals Body Location Bilateral suboccipitals Mobilization Type Sustained Pressure Trigger Point Release Intensity/Depth Moderate Body Position Supine PT-OP-T Assessment and Plan Start: 11/27/18 09:36 Freq: Status: Active Protocol: Document 01/06/19 16:00 DCW (Rec: 01/06/19 17:45 DCW [id number]) Physical Therapy Assessment Impairments Impairments Activity Tolerance Functional Activities Pain Posture ROM Strength Other Concerns Barriers to Rehabilitation Hx cancer Goals Three Impairment Limited ROM prevents pt from properly looking for traffic while in the car Railroad Operating Engineer Goal (LTG) Cervical ROM to improve to 45? bilaterally for rotation and 30? lateral flexion LTG Duration 01/26/19 Two Impairment Pt unable to participate in knitting/cross-stitching longer than 1 hour Railroad Operating Engineer Goal (LTG) Pt to tolerate knitting and cross-stitching for two hours LTG Duration 01/26/19 One Impairment Pt does not have an appropriate home exercise program Short Term Goal (STG) Pt to be independent and compliant with an appropriate HEP STG Duration 12/27/18 Assessment Summary Assessment Pt displays substantial improvement with her ROM today , the least improved being right lateral flexion increasing 15?, and the most improved being right rotation, improved 30?. Physical Therapy Plan Frequency and Duration Frequency of Treatment 2x/Week Duration of Treatment 2 months Plan of Care Start Date 11/26/18 Plan of Care End Date 01/26/19 Therapeutic Interventions Therapeutic Interventions Home Exercise Program Joint Mobilizations Manual Therapy Patient/Caregiver Education Soft Tissue Mobilization Therapeutic Activities Therapeutic Exercises Modalities Hot Packs Next Visit Focus/Plan Next Note Type Treatment Note Next Visit Plan Cervical strengthening, STM, ROM
--- NOTE | 2019-01-13 16:44 | PT.OTN ---
Current Diagnoses Unspecified osteoarthritis, unspecified site (01/13/19) Cervicalgia (01/13/19) Physical Therapy Treatment Note PT-OP-A Visit Information Start: 11/27/18 09:36 Freq: Status: Active Protocol: Document 01/13/19 16:00 DCW (Rec: 01/13/19 16:44 DCW [id number]) Out-Patient Physical Therapy Visit Information Visit Information Visit Type Treatment Note Visit Start Time 16:00 Visit Stop Time 16:45 Total Visit Minutes 45 Visit Number 6 Number of MORTGAGE CONSULTANT Visits 0 Evaluation Information Evaluation Date 11/26/18 PT-OP-B Current Condition Start: 11/27/18 09:36 Freq: Status: Active Protocol: Document 11/26/18 16:00 DCW (Rec: 11/27/18 10:27 DCW [id number]) Current Condition History of Current Condition Onset Date Multi-year history Current Complaints Cervical stiffness, headaches, neck pain History of Current Condition Pt is a 73 year old female presenting with a long- standing history of cervical pain and stiffness, which she notes has been worsening over the last six months. Pt has previously been treated at this clinic for frozen shoulder, but reports her shoulder have been fixed, and they're fine now. Pt is not exactly thrilled to be returning to therapy, and feels like her son, who is also present at the evaluation , is forcing her to be here. Pt additionally has a complicated medical history, with long-standing treatment for Leiomyosarcoma, a soft- tissue cancer, however has previously reported that she is in clinical remission. Pt reports her neck pain creates constant headaches, and she admits to difficulty doing knitting or cross-stitching for more than one hour.Pt also reports that she has difficulty turning her head left, which is difficult, because she helps her son look for traffic while he is driving. 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 Current Functional Impairments (Reported) Functional Limitations- Recreation/ Neck pain limits ability to Hobbies knit or cross-stitch longer than one hour Functional Limitations- Other Pt unable to turn her head left to look for traffic while her son is driving PT-OP-C Subjective Start: 11/27/18 09:36 Freq: Status: Active Protocol: Document 01/13/19 16:00 DCW (Rec: 01/13/19 16:44 DCW [id number]) OP-PT Subjective Patient Comments Patient Comments Pt's son reports her posture has been much improved recently, except for when she gets fatigued. PT-OP-F Manual Assessment Start: 11/27/18 09:36 Freq: Status: Active Protocol: Document 11/26/18 16:00 DCW (Rec: 11/27/18 10:27 DCW [id number]) Manual Assessments Soft Tissue Assessment Soft Tissue Mobility Assessment Moderate tone bilateral pecs, moderate tone bilateral upper trap, severe tone suboccipitals Tenderness 2/4: pain with wincing in pecs and upper trap , 3/4: wincing and withdraw in suboccipitals Joint Mobility Assessment Joint Mobility Assessment Hypomobility throughout entire cervical spine PT-OP-J Posture/Palpation/Skin Start: 11/27/18 09:36 Freq: Status: Active Protocol: Document 11/26/18 16:00 DCW (Rec: 11/27/18 10:27 DCW [id number]) Posture Evaluation Position Sitting Evaluation View Lateral Head/C-Spine Posture Extended Excess Extension Forward Head T-Spine Posture Increased Kyphosis Shoulder Posture (L) Rounded (R) Rounded Scapula Posture (L) Protracted (R) Protracted (L) Winged (R) Winged Palpation Assessment Location Upper Trap Palpation Location Upper Trap Palpation Findings Soft Tissue Tightness Spasm Muscle Guarding Tenderness Trigger Point Suboccipitals Palpation Location Bilateral suboccipitals Palpation Findings Soft Tissue Tightness Spasm Tenderness Trigger Point PT-OP-K Range of Motion Start: 11/27/18 09:36 Freq: Status: Active Protocol: Document 01/06/19 16:00 DCW (Rec: 01/06/19 17:39 DCW [id number]) Cervical Spine Range of Motion Cervical Spine Active Degrees Testing Position Sitting Flexion 53 Extension 38 Rotation Left 53 Rotation Right 45 Lateral Flexion Left 40 Lateral Flexion Right 28 ROM Limitations Soft Tissue Tightness Bony Restriction Muscle Weakness Muscle Tone Pain PT-OP-L Special Tests Start: 11/27/18 09:36 Freq: Status: Active Protocol: Document 11/26/18 16:00 DCW (Rec: 11/27/18 10:27 DCW [id number]) Special Tests Cervical Spine Special Tests Spurling's Test Test Results Right positive, left negative Comments positive for pain, not radicular symptoms Upper Limb Tension Test Test Results Negative Passive Neck Flexion Test Results Positive for cervical pain Foraminal Compression Test Results Negative PT-OP-M Strength Start: 11/27/18 09:36 Freq: Status: Active Protocol: Document 11/26/18 16:00 DCW (Rec: 11/27/18 10:27 DCW [id number]) Cervical Spine Strength Cervical Spine Manual Muscle Testing Testing Position Supine Comments Chin tuck/head lift results in immediate shaking and ability to hold position for 2 seconds, deep neck flexors 3+/ 5 PT-OP-Q Treatments Start: 11/27/18 09:36 Freq: Status: Active Protocol: Document 01/13/19 16:00 DCW (Rec: 01/13/19 16:44 DCW [id number]) Manual Therapy Treatment Soft Tissue Mobilization Parascapulars Body Location Left Parascapulars Mobilization Type Strumming Sustained Pressure Intensity/Depth Moderate Body Position Supine Pec STM Body Location L Pec STM Mobilization Type Sustained Pressure Trigger Point Release Intensity/Depth Moderate Comments Avoid right secondary to port placement Upper Trap Body Location Bilateral Upper Trap Mobilization Type Strain/Counterstrain Sustained Pressure Trigger Point Release Intensity/Depth Moderate Body Position Supine Suboccipitals Body Location Bilateral suboccipitals Mobilization Type Sustained Pressure Trigger Point Release Intensity/Depth Moderate Body Position Supine PT-OP-T Assessment and Plan Start: 11/27/18 09:36 Freq: Status: Active Protocol: Document 01/13/19 16:00 DCW (Rec: 01/13/19 16:44 DCW [id number]) Physical Therapy Assessment Impairments Impairments Activity Tolerance Functional Activities Pain Posture ROM Strength Other Concerns Barriers to Rehabilitation Hx cancer Goals Three Impairment Limited ROM prevents pt from properly looking for traffic while in the car Alf Goal (LTG) Cervical ROM to improve to 45? bilaterally for rotation and 30? lateral flexion LTG Duration 01/26/19 Two Impairment Pt unable to participate in knitting/cross-stitching longer than 1 hour Lithopress Operator Goal (LTG) Pt to tolerate knitting and cross-stitching for two hours LTG Duration 01/26/19 One Impairment Pt does not have an appropriate home exercise program Short Term Goal (STG) Pt to be independent and compliant with an appropriate HEP STG Duration 12/27/18 Assessment Summary Assessment Pt feeling fairly well today, no complaints of pain or difficulty with STM today. Physical Therapy Plan Frequency and Duration Frequency of Treatment 2x/Week Duration of Treatment 2 months Plan of Care Start Date 11/26/18 Plan of Care End Date 01/26/19 Therapeutic Interventions Therapeutic Interventions Home Exercise Program Joint Mobilizations Manual Therapy Patient/Caregiver Education Soft Tissue Mobilization Therapeutic Activities Therapeutic Exercises Modalities Hot Packs Next Visit Focus/Plan Next Note Type Treatment Note Next Visit Plan Cervical strengthening, STM, ROM
--- NOTE | 2019-01-20 16:00 | PT.OTN ---
Current Diagnoses Unspecified osteoarthritis, unspecified site (01/20/19) Cervicalgia (01/20/19) Physical Therapy Treatment Note PT-OP-A Visit Information Start: 11/27/18 09:36 Freq: Status: Active Protocol: Document 01/20/19 15:15 DCW (Rec: 01/20/19 15:59 DCW [id number]) Out-Patient Physical Therapy Visit Information Visit Information Visit Type Treatment Note Visit Start Time 15:15 Visit Stop Time 16:00 Total Visit Minutes 45 Visit Number 7 Number of SHORT ORDER COOK Visits 0 Evaluation Information Evaluation Date 11/26/18 PT-OP-B Current Condition Start: 11/27/18 09:36 Freq: Status: Active Protocol: Document 11/26/18 16:00 DCW (Rec: 11/27/18 10:27 DCW [id number]) Current Condition History of Current Condition Onset Date Multi-year history Current Complaints Cervical stiffness, headaches, neck pain History of Current Condition Pt is a 73 year old female presenting with a long- standing history of cervical pain and stiffness, which she notes has been worsening over the last six months. Pt has previously been treated at this clinic for frozen shoulder, but reports her shoulder have been fixed, and they're fine now. Pt is not exactly thrilled to be returning to therapy, and feels like her son, who is also present at the evaluation , is forcing her to be here. Pt additionally has a complicated medical history, with long-standing treatment for Leiomyosarcoma, a soft- tissue cancer, however has previously reported that she is in clinical remission. Pt reports her neck pain creates constant headaches, and she admits to difficulty doing knitting or cross-stitching for more than one hour.Pt also reports that she has difficulty turning her head left, which is difficult, because she helps her son look for traffic while he is driving. 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 Current Functional Impairments (Reported) Functional Limitations- Recreation/ Neck pain limits ability to Hobbies knit or cross-stitch longer than one hour Functional Limitations- Other Pt unable to turn her head left to look for traffic while her son is driving PT-OP-C Subjective Start: 11/27/18 09:36 Freq: Status: Active Protocol: Document 01/20/19 15:15 DCW (Rec: 01/20/19 15:59 DCW [id number]) OP-PT Subjective Patient Comments Patient Comments Pt notes she is very tired today after being up until 4: 30 am caring for a sick horse. PT-OP-F Manual Assessment Start: 11/27/18 09:36 Freq: Status: Active Protocol: Document 11/26/18 16:00 DCW (Rec: 11/27/18 10:27 DCW [id number]) Manual Assessments Soft Tissue Assessment Soft Tissue Mobility Assessment Moderate tone bilateral pecs, moderate tone bilateral upper trap, severe tone suboccipitals Tenderness 2/4: pain with wincing in pecs and upper trap , 3/4: wincing and withdraw in suboccipitals Joint Mobility Assessment Joint Mobility Assessment Hypomobility throughout entire cervical spine PT-OP-J Posture/Palpation/Skin Start: 11/27/18 09:36 Freq: Status: Active Protocol: Document 11/26/18 16:00 DCW (Rec: 11/27/18 10:27 DCW [id number]) Posture Evaluation Position Sitting Evaluation View Lateral Head/C-Spine Posture Extended Excess Extension Forward Head T-Spine Posture Increased Kyphosis Shoulder Posture (L) Rounded (R) Rounded Scapula Posture (L) Protracted (R) Protracted (L) Winged (R) Winged Palpation Assessment Location Upper Trap Palpation Location Upper Trap Palpation Findings Soft Tissue Tightness Spasm Muscle Guarding Tenderness Trigger Point Suboccipitals Palpation Location Bilateral suboccipitals Palpation Findings Soft Tissue Tightness Spasm Tenderness Trigger Point PT-OP-K Range of Motion Start: 11/27/18 09:36 Freq: Status: Active Protocol: Document 01/06/19 16:00 DCW (Rec: 01/06/19 17:39 DCW [id number]) Cervical Spine Range of Motion Cervical Spine Active Degrees Testing Position Sitting Flexion 53 Extension 38 Rotation Left 53 Rotation Right 45 Lateral Flexion Left 40 Lateral Flexion Right 28 ROM Limitations Soft Tissue Tightness Bony Restriction Muscle Weakness Muscle Tone Pain PT-OP-L Special Tests Start: 11/27/18 09:36 Freq: Status: Active Protocol: Document 11/26/18 16:00 DCW (Rec: 11/27/18 10:27 DCW [id number]) Special Tests Cervical Spine Special Tests Spurling's Test Test Results Right positive, left negative Comments positive for pain, not radicular symptoms Upper Limb Tension Test Test Results Negative Passive Neck Flexion Test Results Positive for cervical pain Foraminal Compression Test Results Negative PT-OP-M Strength Start: 11/27/18 09:36 Freq: Status: Active Protocol: Document 11/26/18 16:00 DCW (Rec: 11/27/18 10:27 DCW [id number]) Cervical Spine Strength Cervical Spine Manual Muscle Testing Testing Position Supine Comments Chin tuck/head lift results in immediate shaking and ability to hold position for 2 seconds, deep neck flexors 3+/ 5 PT-OP-Q Treatments Start: 11/27/18 09:36 Freq: Status: Active Protocol: Document 01/20/19 15:15 DCW (Rec: 01/20/19 15:59 DCW [id number]) Manual Therapy Treatment Soft Tissue Mobilization Parascapulars Body Location Left Parascapulars Mobilization Type Strumming Sustained Pressure Intensity/Depth Moderate Body Position Supine Pec STM Body Location L Pec STM Mobilization Type Sustained Pressure Trigger Point Release Intensity/Depth Moderate Comments Avoid right secondary to port placement Upper Trap Body Location Bilateral Upper Trap Mobilization Type Strain/Counterstrain Sustained Pressure Trigger Point Release Intensity/Depth Moderate Body Position Supine Suboccipitals Body Location Bilateral suboccipitals Mobilization Type Sustained Pressure Trigger Point Release Intensity/Depth Moderate Body Position Supine PT-OP-T Assessment and Plan Start: 11/27/18 09:36 Freq: Status: Active Protocol: Document 01/20/19 15:15 DCW (Rec: 01/20/19 15:59 DCW [id number]) Physical Therapy Assessment Impairments Impairments Activity Tolerance Functional Activities Pain Posture ROM Strength Other Concerns Barriers to Rehabilitation Hx cancer Goals Three Impairment Limited ROM prevents pt from properly looking for traffic while in the car Correction Goal (LTG) Cervical ROM to improve to 45? bilaterally for rotation and 30? lateral flexion LTG Duration 01/26/19 Two Impairment Pt unable to participate in knitting/cross-stitching longer than 1 hour Correction Goal (LTG) Pt to tolerate knitting and cross-stitching for two hours LTG Duration 01/26/19 One Impairment Pt does not have an appropriate home exercise program Short Term Goal (STG) Pt to be independent and compliant with an appropriate HEP STG Duration 12/27/18 Assessment Summary Assessment Pt appears to be developing pain on her left biceps, may be beginning to develop bicipital tendonitis due to overuse secondary to left shoulder dysfunction. Recommended ice and rest. Physical Therapy Plan Frequency and Duration Frequency of Treatment 2x/Week Duration of Treatment 2 months Plan of Care Start Date 11/26/18 Plan of Care End Date 01/26/19 Therapeutic Interventions Therapeutic Interventions Home Exercise Program Joint Mobilizations Manual Therapy Patient/Caregiver Education Soft Tissue Mobilization Therapeutic Activities Therapeutic Exercises Modalities Hot Packs Next Visit Focus/Plan Next Note Type Treatment Note Next Visit Plan Cervical strengthening, STM, ROM
--- NOTE | 2019-02-03 16:52 | PT.OTN ---
Current Diagnoses Unspecified osteoarthritis, unspecified site (02/03/19) Cervicalgia (02/03/19) Physical Therapy Treatment Note PT-OP-A Visit Information Start: 11/27/18 09:36 Freq: Status: Active Protocol: Document 02/03/19 15:15 DCW (Rec: 02/03/19 16:04 DCW [id number]) Out-Patient Physical Therapy Visit Information Visit Information Visit Type Treatment Note Visit Start Time 15:15 Visit Stop Time 16:00 Total Visit Minutes 45 Visit Number 8 Number of BUILDING PRESSURE WASHER Visits 0 Evaluation Information Evaluation Date 11/26/18 PT-OP-B Current Condition Start: 11/27/18 09:36 Freq: Status: Active Protocol: Document 11/26/18 16:00 DCW (Rec: 11/27/18 10:27 DCW [id number]) Current Condition History of Current Condition Onset Date Multi-year history Current Complaints Cervical stiffness, headaches, neck pain History of Current Condition Pt is a 73 year old female presenting with a long- standing history of cervical pain and stiffness, which she notes has been worsening over the last six months. Pt has previously been treated at this clinic for frozen shoulder, but reports her shoulder have been fixed, and they're fine now. Pt is not exactly thrilled to be returning to therapy, and feels like her son, who is also present at the evaluation , is forcing her to be here. Pt additionally has a complicated medical history, with long-standing treatment for Leiomyosarcoma, a soft- tissue cancer, however has previously reported that she is in clinical remission. Pt reports her neck pain creates constant headaches, and she admits to difficulty doing knitting or cross-stitching for more than one hour.Pt also reports that she has difficulty turning her head left, which is difficult, because she helps her son look for traffic while he is driving. 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 Current Functional Impairments (Reported) Functional Limitations- Recreation/ Neck pain limits ability to Hobbies knit or cross-stitch longer than one hour Functional Limitations- Other Pt unable to turn her head left to look for traffic while her son is driving PT-OP-C Subjective Start: 11/27/18 09:36 Freq: Status: Active Protocol: Document 02/03/19 15:15 DCW (Rec: 02/03/19 16:04 DCW [id number]) OP-PT Subjective Patient Comments Patient Comments Pt reports she chopped down a tree yesterday, and despite having some soreness, isn't complaining of increased pain. PT-OP-F Manual Assessment Start: 11/27/18 09:36 Freq: Status: Active Protocol: Document 11/26/18 16:00 DCW (Rec: 11/27/18 10:27 DCW [id number]) Manual Assessments Soft Tissue Assessment Soft Tissue Mobility Assessment Moderate tone bilateral pecs, moderate tone bilateral upper trap, severe tone suboccipitals Tenderness 2/4: pain with wincing in pecs and upper trap , 3/4: wincing and withdraw in suboccipitals Joint Mobility Assessment Joint Mobility Assessment Hypomobility throughout entire cervical spine PT-OP-J Posture/Palpation/Skin Start: 11/27/18 09:36 Freq: Status: Active Protocol: Document 11/26/18 16:00 DCW (Rec: 11/27/18 10:27 DCW [id number]) Posture Evaluation Position Sitting Evaluation View Lateral Head/C-Spine Posture Extended Excess Extension Forward Head T-Spine Posture Increased Kyphosis Shoulder Posture (L) Rounded (R) Rounded Scapula Posture (L) Protracted (R) Protracted (L) Winged (R) Winged Palpation Assessment Location Upper Trap Palpation Location Upper Trap Palpation Findings Soft Tissue Tightness Spasm Muscle Guarding Tenderness Trigger Point Suboccipitals Palpation Location Bilateral suboccipitals Palpation Findings Soft Tissue Tightness Spasm Tenderness Trigger Point PT-OP-K Range of Motion Start: 11/27/18 09:36 Freq: Status: Active Protocol: Document 01/06/19 16:00 DCW (Rec: 01/06/19 17:39 DCW [id number]) Cervical Spine Range of Motion Cervical Spine Active Degrees Testing Position Sitting Flexion 53 Extension 38 Rotation Left 53 Rotation Right 45 Lateral Flexion Left 40 Lateral Flexion Right 28 ROM Limitations Soft Tissue Tightness Bony Restriction Muscle Weakness Muscle Tone Pain PT-OP-L Special Tests Start: 11/27/18 09:36 Freq: Status: Active Protocol: Document 11/26/18 16:00 DCW (Rec: 11/27/18 10:27 ARW [id number]) Special Tests Cervical Spine Special Tests Spurling's Test Test Results Right positive, left negative Comments positive for pain, not radicular symptoms Upper Limb Tension Test Test Results Negative Passive Neck Flexion Test Results Positive for cervical pain Foraminal Compression Test Results Negative PT-OP-M Strength Start: 11/27/18 09:36 Freq: Status: Active Protocol: Document 11/26/18 16:00 DCW (Rec: 11/27/18 10:27 ARW [id number]) Cervical Spine Strength Cervical Spine Manual Muscle Testing Testing Position Supine Comments Chin tuck/head lift results in immediate shaking and ability to hold position for 2 seconds, deep neck flexors 3+/ 5 PT-OP-Q Treatments Start: 11/27/18 09:36 Freq: Status: Active Protocol: Document 02/03/19 15:15 DCW (Rec: 02/03/19 16:52 ARW [id number]) Manual Therapy Treatment Soft Tissue Mobilization Parascapulars Body Location Left Parascapulars Mobilization Type Strumming Sustained Pressure Intensity/Depth Moderate Body Position Supine Pec STM Body Location L Pec STM Mobilization Type Sustained Pressure Trigger Point Release Intensity/Depth Moderate Comments Avoid right secondary to port placement Upper Trap Body Location Bilateral Upper Trap Mobilization Type Strain/Counterstrain Sustained Pressure Trigger Point Release Intensity/Depth Moderate Body Position Supine Suboccipitals Body Location Bilateral suboccipitals Mobilization Type Sustained Pressure Trigger Point Release Intensity/Depth Moderate Body Position Supine PT-OP-T Assessment and Plan Start: 11/27/18 09:36 Freq: Status: Active Protocol: Document 02/03/19 15:15 DCW (Rec: 02/03/19 16:52 DCW [id number]) Physical Therapy Assessment Impairments Impairments Activity Tolerance Functional Activities Pain Posture ROM Strength Other Concerns Barriers to Rehabilitation Hx cancer Goals Three Impairment Limited ROM prevents pt from properly looking for traffic while in the car Display Screen Fabricator Goal (LTG) Cervical ROM to improve to 45? bilaterally for rotation and 30? lateral flexion LTG Duration 01/26/19 Two Impairment Pt unable to participate in knitting/cross-stitching longer than 1 hour Display Screen Fabricator Goal (LTG) Pt to tolerate knitting and cross-stitching for two hours LTG Duration 01/26/19 One Impairment Pt does not have an appropriate home exercise program Short Term Goal (STG) Pt to be independent and compliant with an appropriate HEP STG Duration 12/27/18 Assessment Summary Assessment Therapist and pt's son both feel like pt is displaying improved mobility and decreased tone, pt herself reports that she does not feel like she has seen any difference. Physical Therapy Plan Frequency and Duration Frequency of Treatment 2x/Week Duration of Treatment 2 months Plan of Care Start Date 02/03/19 Plan of Care End Date 04/06/19 Therapeutic Interventions Therapeutic Interventions Home Exercise Program Joint Mobilizations Manual Therapy Patient/Caregiver Education Soft Tissue Mobilization Therapeutic Activities Therapeutic Exercises Modalities Hot Packs Next Visit Focus/Plan Next Note Type Treatment Note Next Visit Plan Cervical strengthening, STM, ROM
--- NOTE | 2019-02-03 16:53 | PT.OPPOC ---
Current Diagnoses Unspecified osteoarthritis, unspecified site (02/03/19) Cervicalgia (02/03/19) Provider Visit Care Team Role Provider Type Fuad Burkett MD Attending Provider Physician Family Provider Primary Care Provider Specialty: Internal Medicine Address: [address] [place] [address], [id number] Email: Plan Of Care PT-OP-T Assessment and Plan Start: 11/27/18 09:36 Freq: Status: Active Protocol: Document 02/03/19 15:15 DCW (Rec: 02/03/19 16:52 DCW [id number]) Physical Therapy Assessment Impairments Impairments Activity Tolerance Functional Activities Pain Posture ROM Strength Other Concerns Barriers to Rehabilitation Hx cancer Goals Three Impairment Limited ROM prevents pt from properly looking for traffic while in the car Protective Services Officer Goal (LTG) Cervical ROM to improve to 45? bilaterally for rotation and 30? lateral flexion LTG Duration 01/26/19 Two Impairment Pt unable to participate in knitting/cross-stitching longer than 1 hour Long-Term Goal (LTG) Pt to tolerate knitting and cross-stitching for two hours LTG Duration 01/26/19 One Impairment Pt does not have an appropriate home exercise program Short Term Goal (STG) Pt to be independent and compliant with an appropriate HEP STG Duration 12/27/18 Assessment Summary Assessment Therapist and pt's son both feel like pt is displaying improved mobility and decreased tone, pt herself reports that she does not feel like she has seen any difference. Pt agreeable to more therapy at this time, hopes to help her feel better after she spends time painting her barn. Physical Therapy Plan Frequency and Duration Frequency of Treatment 2x/Week Duration of Treatment 2 months Plan of Care Start Date 02/03/19 Plan of Care End Date 04/06/19 Therapeutic Interventions Therapeutic Interventions Home Exercise Program Joint Mobilizations Manual Therapy Patient/Caregiver Education Soft Tissue Mobilization Therapeutic Activities Therapeutic Exercises Modalities Hot Packs Next Visit Focus/Plan Next Note Type Treatment Note Next Visit Plan Cervical strengthening, STM, ROM Plan of Care Dates Plan of Care Start Date 02/03/19 Plan of Care End Date 04/06/19 Please Sign and Return: I have reviewed this Plan of Care and certify that the skilled therapy services above are required to meet the patient?s needs. Physician Signature Date Printed Name and Credentials Clinical Instructor Signature Printed Name and Credentials
--- NOTE | 2019-03-23 09:40 | PT.OPDS ---
Current Diagnoses Unspecified osteoarthritis, unspecified site (02/03/19) Cervicalgia (02/03/19) Visit Care Team Role Provider Type Fuad Burkett MD Attending Provider Physician Family Provider Primary Care Provider Specialty: Internal Medicine Address: [address] [place] [address], [facility] Email: [email or web address] Visit Number Visit Number 8 Discharge Summary PT-OP-B Current Condition Start: 11/27/18 09:36 Freq: Status: Active Protocol: Document 11/26/18 16:00 DCW (Rec: 11/27/18 10:27 DCW [id number]) Current Condition History of Current Condition Onset Date Multi-year history Current Complaints Cervical stiffness, headaches, neck pain History of Current Condition Pt is a 73 year old female presenting with a long- standing history of cervical pain and stiffness, which she notes has been worsening over the last six months. Pt has previously been treated at this clinic for frozen shoulder, but reports her shoulder have been fixed, and they're fine now. Pt is not exactly thrilled to be returning to therapy, and feels like her son, who is also present at the evaluation , is forcing her to be here. Pt additionally has a complicated medical history, with long-standing treatment for Leiomyosarcoma, a soft- tissue cancer, however has previously reported that she is in clinical remission. Pt reports her neck pain creates constant headaches, and she admits to difficulty doing knitting or cross-stitching for more than one hour.Pt also reports that she has difficulty turning her head left, which is difficult, because she helps her son look for traffic while he is driving. 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 Current Functional Impairments (Reported) Functional Limitations- Recreation/ Neck pain limits ability to Hobbies knit or cross-stitch longer than one hour Functional Limitations- Other Pt unable to turn her head left to look for traffic while her son is driving PT-OP-F Manual Assessment Start: 11/27/18 09:36 Freq: Status: Active Protocol: Document 11/26/18 16:00 DCW (Rec: 11/27/18 10:27 [facility] [id number]) Manual Assessments Soft Tissue Assessment Soft Tissue Mobility Assessment Moderate tone bilateral pecs, moderate tone bilateral upper trap, severe tone suboccipitals Tenderness 2/4: pain with wincing in pecs and upper trap , 3/4: wincing and withdraw in suboccipitals Joint Mobility Assessment Joint Mobility Assessment Hypomobility throughout entire cervical spine PT-OP-J Posture/Palpation/Skin Start: 11/27/18 09:36 Freq: Status: Active Protocol: Document 11/26/18 16:00 DCW (Rec: 11/27/18 10:27 [facility] [id number]) Posture Evaluation Position Sitting Evaluation View Lateral Head/C-Spine Posture Extended,Excess Extension, Forward Head T-Spine Posture Increased Kyphosis Shoulder Posture (L) Rounded,(R) Rounded Scapula Posture (L) Protracted,(R) Protracted, (L) Winged,(R) Winged Palpation Assessment Location Upper Trap Palpation Location Upper Trap Palpation Findings Soft Tissue Tightness,Spasm, Muscle Guarding,Tenderness, Trigger Point Suboccipitals Palpation Location Bilateral suboccipitals Palpation Findings Soft Tissue Tightness,Spasm, Tenderness,Trigger Point PT-OP-K Range of Motion Start: 11/27/18 09:36 Freq: Status: Active Protocol: Document 01/06/19 16:00 DCW (Rec: 01/06/19 17:39 [facility] [id number]) Cervical Spine Range of Motion Cervical Spine Active Degrees Testing Position Sitting Flexion 53 Extension 38 Rotation Left 53 Rotation Right 45 Lateral Flexion Left 40 Lateral Flexion Right 28 ROM Limitations Soft Tissue Tightness,Bony Restriction,Muscle Weakness, Muscle Tone,Pain PT-OP-L Special Tests Start: 11/27/18 09:36 Freq: Status: Active Protocol: Document 11/26/18 16:00 DCW (Rec: 11/27/18 10:27 [facility] [id number]) Special Tests Cervical Spine Special Tests Spurling's Test Test Results Right positive, left negative Comments positive for pain, not radicular symptoms Upper Limb Tension Test Test Results Negative Passive Neck Flexion Test Results Positive for cervical pain Foraminal Compression Test Results Negative PT-OP-M Strength Start: 11/27/18 09:36 Freq: Status: Active Protocol: Document 11/26/18 16:00 DCW (Rec: 11/27/18 10:27 DCW [id number]) Cervical Spine Strength Cervical Spine Manual Muscle Testing Testing Position Supine Comments Chin tuck/head lift results in immediate shaking and ability to hold position for 2 seconds, deep neck flexors 3+/ 5 PT-OP-T Assessment and Plan Start: 11/27/18 09:36 Freq: Status: Active Protocol: Document 03/23/19 09:38 DCW (Rec: 03/23/19 09:40 DCW [id number]) Physical Therapy Assessment Goals Three Impairment Limited ROM prevents pt from properly looking for traffic while in the car Penitentiary Goal (LTG) Cervical ROM to improve to 45? bilaterally for rotation and 30? lateral flexion LTG Duration 01/26/19 Two Impairment Pt unable to participate in knitting/cross-stitching longer than 1 hour Dishwasher Busser Goal (LTG) Pt to tolerate knitting and cross-stitching for two hours LTG Duration 01/26/19 One Impairment Pt does not have an appropriate home exercise program Short Term Goal (STG) Pt to be independent and compliant with an appropriate HEP STG Duration 12/27/18 Assessment Summary Assessment Pt's son spoke with therapist, reported that the pt was planning on having shoulder surgery within the next month or two, and would return to skilled therapy with a new referral following surgery. Pt will be discharged at this time. Physical Therapy Plan Discharge Physical Therapy Discharge Reasons Change in Medical Status Next Visit Focus/Plan Next Note Type Discharge Summary
== END 2019-03-26 17:23 ==
LOC: PHYS 15:15
PROVIDERS: Family Provider Internal Medicine; PCP Internal Medicine; Visit Provider Internal Medicine
DX: M19.90 Unspecified osteoarthritis, unspecified site (principal); M54.2 Cervicalgia; C55 Malignant neoplasm of uterus, part unspecified; Z79.811 Long term (current) use of aromatase inhibitors
CPT/HCPCS: 97110; 97140; 97161

== ENCOUNTER → 2019-04-13 10:12 | Outpatient (CLI) | payer MEDICARE, MEDICAID, SELFPAY ==
--- NOTE | 2019-04-13 10:18 | DI.CT.S_ITS ---
PROCEDURE: CT CHEST ABD PEL WO CON INDICATIONS: sarcoma TECHNIQUE: After the administration of oral contrast, 5 mm thick sections acquired from the lung apices to the symphysis pubis. 5 mm thick coronal and sagittal reformats acquired, with additional 7 mm coronal MIP reformats through the lungs. For radiation dose reduction, the following was used: automated exposure control, adjustment of mA and/or kV according to patient size. COMPARISON: CT chest, abdomen and pelvis with contrast 12/29/2018. [facility], CT, CT CHEST ABD PEL WO CON, 09/29/2018, 13:16. 11/28/2015. FINDINGS: Image quality: Excellent. CHEST: Lungs and pleura: Stable bilateral patchy consolidative opacity since at least 09/29/2018. Right upper lobe pulmonary nodule measuring 7 mm, (3/697), previously 6 mm on 09/29/2018. Left lower lobe nodular opacity measuring 1.6 cm, (3/193), previously 1.5 cm and unchanged. No new pulmonary nodules identified. Central airways are clear. There is traction bronchiectasis. No pleural effusions or pneumothorax. Mediastinum: Heart size is normal. Coronary artery calcifications. No pericardial effusion. No mediastinal adenopathy by CT size criteria. Thoracic aorta and central pulmonary arteries are normal in size. Esophagus is normal in caliber. Secretions in the upper esophagus. No hiatal hernia. Chest wall: No axillary or supraclavicular adenopathy by size criteria. Thyroid gland is unremarkable. Right-sided port with the catheter tip terminating in the upper third of the SVC. ABDOMEN: Solid organs: Liver is normal in size. Cholelithiasis. Pancreas is normal in contours. Spleen is normal in size. No adrenal nodules. Both kidneys are normal in size, without hydronephrosis or nephrolithiasis. Punctate parenchymal calcification in the left kidney. Peritoneum and bowel: Small and large bowel loops are normal in caliber and wall thickness. Increased stool in the rectum. No free fluid or air. Nodes and vessels: No retroperitoneal or mesenteric adenopathy by size criteria. Aorta and inferior vena cava are normal in size. Extensive calcified atherosclerotic plaque. Miscellaneous: No ventral hernias. PELVIS: Genitourinary: Bladder wall thickness is normal. Miscellaneous: No inguinal hernias or adenopathy. Bones: No suspicious bony lesions. Bilateral L5 pars defect. No vertebral body compression fractures. IMPRESSION: 1. Stable consolidative opacities and pulmonary nodules most consistent with metastatic disease. 2. No metastatic disease identified in the abdomen or pelvis. Dictated by: Elias Jain M.D. on 04/13/2019 at 15:41 Approved by: Elias Jain M.D. on 04/13/2019 at 15:58
== END ==
PROVIDERS: Family Provider Internal Medicine; PCP Internal Medicine
DX: C49.9 Malignant neoplasm of connective and soft tissue, unspecified (principal); R91.8 Other nonspecific abnormal finding of lung field; I25.10 Atherosclerotic heart disease of native coronary artery without angina pectoris; K80.20 Calculus of gallbladder without cholecystitis without obstruction; Z95.828 Presence of other vascular implants and grafts
CPT/HCPCS: 71250; 74176

== ENCOUNTER → 2019-04-23 12:37 | Outpatient (CLI) | payer MEDICARE, MEDICAID, SELFPAY ==
--- NOTE | 2019-04-23 | DI.MRI.S_ITS ---
PROCEDURE: MR SHOULDER LT WO CON INDICATIONS: routine screening TECHNIQUE: Noncontrast oblique coronal T2 fast spin echo with fat saturation, oblique sagittal T1 spin echo and T2 fast spin echo with fat saturation, axial T1 spin echo and T2 fast spin echo with fat saturation through the shoulder. COMPARISON: [facility], MR, SHOULDER WITHOUT CONTRAST, 05/17/2017, 10:41. FINDINGS: Image quality: Excellent. Rotator cuff: There is tendinosis and low to moderate grade articular and bursal surface partial-thickness tear involving distal supraspinatus and infraspinatus at their insertions on greater tuberosity extending to the musculotendinous junction. Distal subscapularis tendon is intact. Sagittal images demonstrate mild supraspinatus muscle atrophy. Bones and bursae: No bone marrow contusions or fractures. Moderate acromioclavicular joint osteoarthritis is seen. Downward margin osteophyte is noted. There is also prominent enthesophyte along the undersurface of acromion depressing musculotendinous junction of supraspinatus. No pathologic subacromial-subdeltoid or subcoracoid bursal fluid is present. Capsule and soft tissues: In the absence of intra-articular contrast, the labrum and glenohumeral ligaments appear intact. Tendinosis and intrasubstance partial-thickness tear involving proximal intra-articular portion of long head biceps tendon is seen. The rotator interval appears normal, without fibrosis. The coracohumeral ligament is normal in thickness. IMPRESSION: 1. Moderate acromioclavicular joint osteoarthritis and downsloping acromion depressing the musculotendinous junction of supraspinatus and infraspinatus. 2. Tendinosis and low to moderate grade articular and bursal surface partial-thickness tear involving distal supraspinatus and infraspinatus extending to musculotendinous junction. Mild supraspinatus muscle atrophy. 3. Tendinosis and low to moderate grade partial-thickness tear involving proximal intra-articular portion of long head biceps tendon. 4. No evidence of focal labral tear. Dictated by: Hernan Corona M.D. on 04/23/2019 at 14:00 Approved by: Hernan Corona M.D. on 04/23/2019 at 14:13
== END ==
PROVIDERS: PCP Internal Medicine; Visit Provider Orthopaedic Surgery
DX: M25.512 Pain in left shoulder (principal); M19.012 Primary osteoarthritis, left shoulder; M75.112 Incomplete rotator cuff tear or rupture of left shoulder, not specified as traumatic
CPT/HCPCS: 73221

== ENCOUNTER → 2019-07-22 12:22 | Outpatient (CLI) | payer MEDICARE, MEDICAID, SELFPAY ==
--- NOTE | 2019-07-22 12:50 | DI.CT.S_ITS ---
PROCEDURE: CT CHEST ABD PEL W CON INDICATIONS: surveillance sarcoma TECHNIQUE: After the administration of oral and intravenous contrast, 5 mm thick sections acquired from the lung apices to the symphysis. 5 mm coronal and sagittal reformats were performed, with additional 7 mm coronal MIP reformats through the lungs. For radiation dose reduction, the following was used: automated exposure control, adjustment of mA and/or kV according to patient size. COMPARISON: [facility], CT, CT CHEST ABD PEL W CON, 12/29/2018, 12:46. [facility], CT, CT CHEST ABD PEL WO CON, 04/13/2019, 11:08. [facility], CT, CT CHEST ABD PEL WO CON, 09/29/2018, 13:16. [facility], CT, CHEST/ABDOMEN WITHOUT CONTRAST, 05/13/2017, 11:26. [facility], CT, CHEST/ABD/PEL WITH CONTRAST, 05/22/2016, 12:45. FINDINGS: Image quality: Diagnostic. CHEST: Lungs and pleura: Patchy areas of pulmonary nodularity, groundglass attenuation, and scarring are identified throughout the lungs. The overall pattern is similar to the previous exam. However, the degree and size of these areas of consolidation in groundglass attenuation may be slightly increased, particularly within the perihilar region and lateral left thoracic wall. A dominant nodule within the posterior aspect of the right upper lobe adjacent to the major pulmonary fissure is slightly increased in size and measures 9 mm on the current study, previously measuring 8 mm (image 20, series 2).. The clinical significance of this interval change is doubtful. The other nodules within the lungs have not significantly changed. No new areas of consolidation are identified. There is no effusion or pneumothorax. Mediastinum: Heart size is normal. No pericardial effusion. No mediastinal or hilar adenopathy by size criteria. Thoracic aorta and central pulmonary arteries are normal in size. Ectasia of the ascending thoracic aorta is present. Coronary and aortic atherosclerosis is noted. Esophagus is normal in caliber. No hiatal hernia. Chest wall and bones: No axillary or supraclavicular adenopathy by size criteria. Thyroid gland is not adequately evaluated or enlarged. The degree of degenerative changes of the spine have not significantly progressed. No suspicious osseous lesions or acute fractures are identified. However, there is irregularity identified involving the 4th and 5th posterolateral left ribs, suggesting bony involvement. No definite additional rib lesions are appreciated. ABDOMEN: Solid organs: The liver is noted to be hypodense when compared to the spleen. Small rounded vague areas of low-attenuation are scattered throughout the liver (image 44, 52, 58, and 65: Series 2). These areas of low attenuation are new since the prior CT from 12/29/18. A calcified gallstone is present within the gallbladder. No intrahepatic or extrahepatic biliary dilatation is identified. The spleen and adrenals are unremarkable. The kidneys are normal in size without hydronephrosis. The pancreas is within normal limits. Peritoneum and bowel: The stomach and duodenum are within normal limits. A few widely prominent small bowel loops are seen within the left hemipelvis. However, no significant decompression of the more distal small bowel loops is identified. Small to moderate amount of stool is seen within the colon. No free fluid, loculated fluid collection or free air is evident. The colon is moderately redundant. The appendix is well-visualized and normal. Postoperative changes within the periumbilical region are incidentally noted within the subcutaneous tissues with minimal associated scarring. Nodes and vessels: No retroperitoneal or mesenteric adenopathy by size criteria. Aorta and inferior vena cava are normal in size. Extensive aortic atherosclerosis is present. Bones: No acute fracture or suspicious osseous lesion is evident. The degree of degenerative changes have not significantly progressed. PELVIS: Genitourinary: Bladder wall thickness is normal. The uterus is surgically absent. The ovaries are either atrophic or have been resected the resected. Miscellaneous: No inguinal hernias or adenopathy. No free fluid or loculated fluid collections are identified. Bones: No suspicious bony lesions. No acute pelvic fractures are evident. IMPRESSION: 1. No acute process is evident within the chest, abdomen, or pelvis. 2. Patchy areas of consolidation and nodularity within the lungs are overall similar to the previous exam. However, the dominant nodule within the posterior right upper lobe has slightly increased in size. Attention to this nodule on subsequent imaging is recommended. No new nodules. 3. New low attenuation lesions within the liver are suspicious for new metastatic deposits. 4. Focally prominent small bowel loops within the left lower quadrant probably represent ileus. No convincing bowel obstruction. Dictated by: Clement Arechiga M.D. on 07/23/2019 at 14:00 Approved by: Clement Arechiga M.D. on 07/23/2019 at 14:13
== END ==
PROVIDERS: PCP Internal Medicine
DX: C55 Malignant neoplasm of uterus, part unspecified (principal); R91.8 Other nonspecific abnormal finding of lung field; K76.9 Liver disease, unspecified; I77.810 Thoracic aortic ectasia; I25.10 Atherosclerotic heart disease of native coronary artery without angina pectoris; I70.0 Atherosclerosis of aorta; K80.20 Calculus of gallbladder without cholecystitis without obstruction
CPT/HCPCS: 71260; 74177; Q9967

== ENCOUNTER 2019-09-17 10:38 | Outpatient (CLI) | payer OTHER, MEDICAID, SELFPAY ==
[2019-09-17] VITALS (8 sets, daily range): BP systolic 105–141; BP diastolic 62–84; PULSE 83–97; RESP 16–18; TEMP 36; O2SAT 96–100
--- NOTE | 2019-09-17 10:40 | DI.RAD.S_ITS ---
PROCEDURE: PAIN C/T TRANFORAMINAL INJECT INDICATIONS: SPINAL STENOSIS FINDINGS: Fluoroscopic spot filming was performed to verify placement of spinal needles at the T9-T10 level(s), as labeled on the films. Appropriate location(s) of the needle tip(s) was confirmed by injection of iodinated contrast. Dictated by: Jaime Singleton M.D. on 09/17/2019 at 13:16 Approved by: Jaime Singleton M.D. on 09/17/2019 at 13:17
[2019-09-17] MEDS: MIDAZOLAM 5 MG/5 ML VIAL IV (11:42)
[2019-09-17] MEDS: fentaNYL 100 MCG/2 ML INJ 50 MCG IV (11:42)
[2019-09-17] MEDS: BUPIVACAINE 0.25% (PF) VIAL 2 ML INJ (11:48)
[2019-09-17] MEDS: DEXAMETHASONE 10 MG/ML VIAL 20 MG INJ (11:48)
[2019-09-17] MEDS: IOPAMIDOL 15 ML VIAL 3 ML INJ (11:48)
--- NOTE | 2019-09-17 11:52 | PC.NURSE ---
ASSISTING PT OFF TABLE AND TRANSPORTING TO POST PROC AREA IN STABLE CONDITION. PASSING RN CARE OF PT OFF TO MANI Chauhan RN.
--- NOTE | 2019-09-17 11:55 | P.PCN_ITS ---
Procedures Date/Time Date of procedure: 09/17/19 Time of procedure: 11:55 General Procedure description: PREOP DIAGNOSIS 1. FORMAINAL STENOSIS WITH LE SYMPTOMS, POST OP DIAGNOSIS 1. FORMAINAL STENOSIS WITH LE SYMPTOMS, PROCEDURES 1. FLUOROSCOPICALLY GUIDED CONTRAST CONTROLLED TRANSFORAMINAL EPIDURAL STEROID INJECTION - LEFT T9/T10 TFESI PHYSICIAN: Kwadwo Fitzgerald, DO INDICATIONS Nessa is referred by for treatment of Foraminal Stenosis with Right thoracic Symptoms FINDINGS Foraminal Nerve Root Compression secondary to disc disease and facet hypertrophy DESCRIPTION OF PROCEDURE Following review of allergy and review of potential side effects and complications, including, but not necessarily limited to, infection, allergic reaction, local tissue breakdown, stroke, temporary or permanent nerve injury, paralysis, and possible , the patient indicated that the patient understood and agreed to proceed. An informed consent document was signed by the patient, witnessed by a nurse, and placed in the patient's chart. Additionally, other treatment options including medications, modalities, and physical therapy were reviewed with the patient. After review of previous anaesthesic history and IV conscious sedation the patient was deemed safe to proceed with todays procedure with IV conscious sedation as ASA class II designation. Safety time-out was performed to confirm patient ID, procedure to be performed and site of procedure. IV sedation was accomplished with a combination of 2mg of Versed and 50mcg of Fentanyl was administered by the RN after DO order, titrated to patient comfort during the course of the procedure while the patient remained responsive to all verbal commands In the prone position following sterile prep and drape of the lumbar region, the left T9/T10 posterior neuroforamen was identified fluoroscopically. The skin was anesthetized via a 25-gauge 1.5-inch needle with 1% lidocaine solution. At this point, a 25-gauge 3.5-inch spinal needle was atraumatically introduced and advanced under fluoroscopic guidance through the posterior left T9/T10 neuroforamen to approximately the anterior aspect of the canal. Depth was confirmed on lateral view. Following negative aspiration, injection of approximately 1.5 cc of Isovue 200 under live fluoroscopy in the AP view confirmed excellent flow along the nerve root, into the epidural space without vascular or intrathecal uptake observed Radiological data, including multiple fluoroscopic views reveal the needle placement in the left T9/T10 posterior neuroforamen. Subsequent views show flow of contrast material flowing superiorly and inferiorly along the nerve root confirming epidural flow. Subsequently, a test dose of 1.5cc of 0.25% marcaine solution was administered and patient was observed for signs or symptoms of complications, including abdominal pain, shortness of breath, bilateral upper or lower extremity weakness, nausea and vomiting, prior to steroid injection. At this point, a total of 2cc or 20mg of dexamethasone was injected without incident. The procedure tolerated the procedure well without signs or symptoms of complications prior to transfer to the recovery area continued monitoring with out incident.The patient was then transferred to the recovery area where they were observed for an appropriate time after the injection. The patient reported a VAS score of 7 prior to the procedure and a post- procedure VAS of 0. Total Fluoroscopy Time: 13 seconds Total Conscious Sedation Time: 24 min POST OP INSTRUCTIONS The patient was provided a Pain Log to continue to record their response to the target-specific procedure prior to follow-up visit with their referring physician. Additionally, specific post-injection care instructions and a contact number to our office were provided if concerns arise regarding possible complications associated with the procedure are suspected. Kwadwo Fitzgerald DO Complications: none
== END 2019-09-17 12:16 | disposition home or self-care (01) ==
PROVIDERS: PCP Internal Medicine; Referring Provider Physical Medicine & Rehabilitation; Visit Provider Physical Medicine & Rehabilitation
DX: M48.04 Spinal stenosis, thoracic region (principal); M51.14 Intervertebral disc disorders with radiculopathy, thoracic region
CPT/HCPCS: 64479; 99152; J1100; J2250; J3010

== ENCOUNTER 2019-09-28 14:16 | Day surgery (SDC) | payer OTHER, MEDICAID, SELFPAY ==
[2019-09-28] VITALS (11 sets, daily range): BP systolic 70–122; BP diastolic 42–67; PULSE 62–72; RESP 10–16; TEMP 36.9–37.6; O2SAT 87–100; BMI 22.7
[2019-09-28] MEDS: LACTATED RINGERS 1,000 ML 42 ML IV ×2 (15:55→18:02)
--- NOTE | 2019-09-28 16:39 | PM.PREOP ---
Pre-operative Note Interval Note History & Physical reviewed/Exam performed by Physician: Yes Changes to H&P: No
[2019-09-28] MEDS: CEFAZOLIN 2 GM/100 ML FROZ.PIGGY IV (17:10)
--- NOTE | 2019-09-28 17:17 | SUR.OPER ---
Supine on padded OR bed, head on pillow, left arm secured on padded arm boards at <90 degrees abduction, right arm is tucked, legs uncrossed, safety belt at thigh, tape over blanket over lower legs.
[2019-09-28] MEDS: BUPIVACAINE 0.5% (PF) VIAL 30 ML INJ (17:20)
--- NOTE | 2019-09-28 17:33 | PM.OP.1 ---
Operative Date/Time/Diagnoses Date of procedure: 09/28/19 Time of procedure: 17:33 Pre-op diagnosis: Port-A-Cath no longer in use. Request made for removal Post-op diagnosis: same Procedure & Clinicians Procedure: Removal Port-A-Cath Same procedure as scheduled: Yes Indications: Patient with a Port-A-Cath no longer needed. Seems to be causing some pressure symptoms according to the patient. She requested immediate removal. Surgeon: Peterson Downs Click Yes if Unassisted: Yes Anesthesia Type: General Operative Notes Findings: Port removed intact including removal of the tacking sutures. Closure Type: primary Specimen(s): none sent Prosthetic devices, grafts, tissues, transplants, or devices: Port removed Estimated Blood Loss (mL): 5 Blood products transfused: none Procedure in detail: The patient was placed supine on the operating room table underwent general LMA anesthesia. She was prepped and draped in the usual fashion. Local anesthetic was infiltrated in a field block fashion around the port. transverse incision is made through the old scar and carried down in the subcu. The catheter was identified from surrounding structures. A [id number] suture was placed of the of 3 0 Vicryl around the catheter. The catheter was removed and the suture tied. There was no back bleeding. The catheter was dissected from its encasing structures and removed. This included removal of the tacking sutures that held in place. The subcu was closed with interrupted 3 0 Vicryl. The skin was closed running 4 0 Vicryl subcuticular stitch and Steri-Strips. Dressing was applied the patient was awakened extubated and taken recovery room good condition Complications: none Post-operative Condition: stable Disposition: PACU
--- NOTE | 2019-09-28 18:44 | SUR.PHASEII ---
Discharged patient with all belongings with son. RX provided. Escorted patient to ER entrance for discharge to vehicle.
== END 2019-09-28 18:44 | disposition home or self-care (01) ==
PROVIDERS: PCP Internal Medicine; Referring Provider Internal Medicine; Visit Provider Specialist
PROC: (CPT 36590; principal; 2019-09-28 15:15)
DX: Z45.2 Encounter for adjustment and management of vascular access device (principal); Z85.831 Personal history of malignant neoplasm of soft tissue
CPT/HCPCS: 36590; J0690; J2704; J3010

== ENCOUNTER → 2019-10-26 12:20 | Outpatient (CLI) | payer OTHER, SELFPAY ==
[2019-10-26 12:39] LABS: Add Manual Diff / Slide Review NO; Basophils Absolute Auto 0 /uL (0-100); Basophils Percent Auto 0.4 % (0-2); Eosinophils Absolute Auto 100 /uL (0-450); Eosinophils Percent Auto 1.6 % (2-4); Hematocrit 36.6 % (36-46); Hemoglobin 12.1 g/dL (12.0-16.0); Lymphocytes Absolute Auto 700 /uL (1100-4500); Lymphocytes Percent Auto 19.8 % (25-40); Mean Corpuscular HGB Conc 33.1 % (30-36); Mean Corpuscular Hemoglobin 32.2 PG (26-34); Mean Corpuscular Volume 97.5 fL (80-100); Monocytes Absolute Auto 300 /uL (0-900); Monocytes Percent Auto 8.9 % (3-14); Neutrophils Absolute Auto 2600 /uL (1500-7000); Neutrophils Percent Auto 69.3 % (50-75); Platelet Count 271 X10^3/uL (150-400); Red Blood Cell Count 3.76 X10^6/uL (4.0-5.2); White Blood Cell Count 3.7 X10^3/uL (4.5-11.0)
[2019-10-26 12:50] LABS: Alanine Aminotransferase 12 IU/L (<35); Albumin 4.5 g/dL (3.5-5.0); Albumin Globulin Ratio 1.4 (1.0-2.8); Alkaline Phosphatase 70 U/L (38-126); Aspartate Aminotransferase 26 IU/L (14-36); BUN Creatinine Ratio 24.6 (6-22); Bilirubin Total 0.4 mg/dL (0.2-1.3); Blood Urea Nitrogen 17 mg/dL (7-17); Calcium 9.6 mg/dL (8.4-10.2); Carbon Dioxide 27 mmol/L (22-32); Chloride 103 mmol/L (98-107); Estimated Glomerular Filt Rate > 60.0 mL/min (>60); Globulin 3.3 g/dL (1.7-4.1); Glucose 107 mg/dL (80-110); HEMOLYSIS < 15 (0-50); Potassium 5.1 mmol/L (3.4-5.1); Sodium 137 mmol/L (137-145); Total Protein 7.8 g/dL (6.3-8.2)
--- NOTE | 2019-10-26 13:22 | DI.CT.S_ITS ---
PROCEDURE: CT CHEST ABD PEL W CON INDICATIONS: Secondary malignant neoplasm of right lung TECHNIQUE: After the administration of oral and intravenous contrast, 5 mm thick sections acquired from the lung apices to the symphysis. 5 mm coronal and sagittal reformats were performed, with additional 7 mm coronal MIP reformats through the lungs. For radiation dose reduction, the following was used: automated exposure control, adjustment of mA and/or kV according to patient size. COMPARISON: [facility], CT, CT CHEST ABD PEL WO CON, 09/29/2018, 13:16. [facility], CT, CT CHEST ABD PEL W CON, 07/22/2019, 13:06. FINDINGS: Image quality: Excellent. CHEST: Lungs: -Triangular-shaped consolidative opacity in the right upper lobe medially with associated traction bronchiectasis, not significantly changed. -Consolidative opacities in the mid left lung and right lower lobe are also similar. -Right upper lobe juxta fissural nodule measuring 1 x 0.8 cm, (121), previously 0.9 x 0.6 cm, and more remotely 0.7 x 0.6 cm on 09/29/2018. No new acute airspace opacities. Central airways are clear. Debris in the right lower lobe bronchi. Pleura: No pleural effusions or pneumothorax. Mediastinum: Heart size is normal. No pericardial effusion. No mediastinal or hilar adenopathy by size criteria. Thoracic aorta and central pulmonary arteries are normal in size. No central pulmonary embolism. Esophagus is patulous. There is enteric contrast in the lower esophagus. Small hiatal hernia. Chest wall: Soft tissue thickening adjacent to the right anterior lateral rib with associated exophytic sclerosis and sclerosis in the 6th rib, unchanged compared to the prior exam. Prior left lateral 4th rib fracture. No axillary or supraclavicular adenopathy by size criteria. Thyroid gland is unremarkable. ABDOMEN: Solid organs: Small ill-defined hypodense thyroid lesions. For example: -Segment 5 measuring 1 cm, (2/61), previously 0.7 cm. -Segment 7 subcapsular measuring 1.4 x 1.2 cm, (2/56), previously 0.8 x 0.8 cm. -Additional lesions in segment 2 and caudate lobe are also increased in size. Gallbladder is not significantly distended. There is a large calcified gallstone measuring 1.5 cm. Biliary system is non dilated. Pancreas enhances normally. Spleen is normal in size and enhancement. No adrenal nodules. Kidneys demonstrate normal size and enhancement, without hydronephrosis. Peritoneum and bowel: Bowel loops demonstrate normal wall thickness and caliber. No free fluid or air. Appendix is normal in caliber. There is a small appendicolith measuring 4 mm, (). Nodes and vessels: No retroperitoneal or mesenteric adenopathy by size criteria. Aorta and inferior vena cava are normal in size. Moderate calcified atherosclerotic plaque. Miscellaneous: Tiny fat-containing periumbilical hernia. PELVIS: Genitourinary: Bladder wall thickness is normal. Miscellaneous: No inguinal hernias or adenopathy. Bones: No suspicious bony lesions. No vertebral body compression fractures. Mild scoliosis. IMPRESSION: 1. Several consolidative opacities in the lungs are not significant change. 2. There is again interval increase in a right lower lobe juxta fissural pulmonary nodule now measuring 1 cm. 3. Interval increase in size in multiple hypodense hepatic lesions suspicious for metastatic disease. 4. No adenopathy identified. No focal osseous lesion. Additional incidental findings: Cholelithiasis. Small appendicolith. Hiatal hernia. Dictated by: Elias Jain M.D. on 10/26/2019 at 15:09 Approved by: Elias Jain M.D. on 10/26/2019 at 15:34
== END ==
PROVIDERS: PCP Internal Medicine; Referring Provider Internal Medicine; Visit Provider Internal Medicine Hematology & Oncology
DX: C49.9 Malignant neoplasm of connective and soft tissue, unspecified (principal); C78.01 Secondary malignant neoplasm of right lung; K44.9 Diaphragmatic hernia without obstruction or gangrene; K80.20 Calculus of gallbladder without cholecystitis without obstruction; K76.9 Liver disease, unspecified
CPT/HCPCS: 36415; 71260; 74177; 80053; 85025; Q9967

== ENCOUNTER → 2020-01-22 11:53 | Outpatient (CLI) | payer OTHER, MEDICAID, SELFPAY ==
--- NOTE | 2020-01-22 | DI.CT.S_ITS ---
PROCEDURE: CT CHEST ABD PEL W CON INDICATIONS: Secondary malignant neoplasm of unspecified lung. Leiomyosarcoma TECHNIQUE: After the administration of oral and intravenous contrast, 5 mm thick sections acquired from the lung apices to the symphysis. 5 mm coronal and sagittal reformats were performed, with additional 7 mm coronal MIP reformats through the lungs. For radiation dose reduction, the following was used: automated exposure control, adjustment of mA and/or kV according to patient size. COMPARISON: [facility], CT, CT CHEST ABD PEL WO CON, 09/29/2018, 13:16. [facility], CT, CT CHEST ABD PEL W CON, 12/29/2018, 12:46. [facility], CT, CT CHEST ABD PEL WO CON, 04/13/2019, 11:08. [facility], CT, CT CHEST ABD PEL W CON, 10/26/2019, 13:42. [facility], CT, CT CHEST ABD PEL W CON, 07/22/2019, 13:06. FINDINGS: Image quality: Excellent. CHEST: Lungs and pleura: No acute airspace opacities, and through much of the lung parenchyma previously presents metastatic disease has remained stable over time. The pattern of disease involvement is that of lymphangitic spread within the lung parenchyma predominantly near the fissure is and peripheral in general orientation. There is, however, a pulmonary nodule abutting the major fissure within the right upper lobe, previously identified, and having increased from 8 mm to 11 mm with reference to the prior CT from 07/22/19. Additionally, left perihilar lymphangitic spread of tumor into the lung parenchyma around the bronchi in that region remains stable. No pleural effusions or pneumothorax. Central and peripheral airways appear patent and normal in caliber. Mediastinum: Heart size is normal. No pericardial effusion. No mediastinal or hilar adenopathy by size criteria. Thoracic aorta and central pulmonary arteries are normal in size. Esophagus is normal in caliber. No hiatal hernia. Chest wall: No axillary or supraclavicular adenopathy by size criteria. Thyroid gland appears normal where well seen. ABDOMEN: Solid organs: Liver is normal in size but demonstrates areas of abnormal enhancement and mild increased mass effect diagnostic of worsening metastatic disease. For example, the left lateral hepatic segment now is infiltrated by a neoplasm, and there is largely previously normal, involving an area measuring up to 8.5 x 5.5 cm. Scattered small foci of metastatic disease within the right hepatic lobe have enlarged. For example, an 8mm hypodensity within the right subcapsular liver seen on prior CT series 2 image 52 from July of this year and now measures up to 2.1 cm seen on current series 2 image 53. A lesser degree of enlargement has occurred within a hepatic metastatic lesion more anteriorly near this level, and a new lesion medial to this prior lesion has developed (series 2 image 59). Gallbladder is again seen to contain a densely calcified stone without evidence of inflammation or biliary distention.. Pancreas enhances normally. Spleen is normal in size and enhancement. No adrenal nodules. Kidneys demonstrate normal size and enhancement, without hydronephrosis. Peritoneum and bowel: Bowel loops demonstrate normal wall thickness and caliber. No free fluid or air. Nodes and vessels: No retroperitoneal or mesenteric adenopathy by size criteria. Aorta and inferior vena cava are normal in size. Miscellaneous: No ventral hernias. PELVIS: Genitourinary: Bladder wall thickness is normal. Miscellaneous: No inguinal hernias or adenopathy. Bones: No suspicious bony lesions. No vertebral body compression fractures. IMPRESSION: 1. Within the lung parenchyma bilaterally there has been a pattern of multifocal lymphangitic spread of tumor including into the perihilar left lung parenchyma, and in general this pattern has not appreciably worsened. There is, however, an ovoid small mass within the posterior margin of the right upper lobe abutting the major fissure which has increased in size to a mild degree, from 8-11 mm. 2. A more significant worsening of metastatic disease is seen within the liver where several new small lesions have developed in previously present small lesions have further enlarged in size, and the left hepatic lobe lateral segment has developed diffuse tumor infiltration in an area measuring up to 8.5 x 5.5 cm. Dictated by: Manoj Reis M.D. on 01/22/2020 at 15:26 Approved by: Manoj Reis M.D. on 01/22/2020 at 15:46
[2020-01-22 12:17] LABS: Add Manual Diff / Slide Review NO; Basophils Absolute Auto 0 /uL (0-100); Basophils Percent Auto 0.5 % (0-2); Eosinophils Absolute Auto 100 /uL (0-450); Hematocrit 31.9 % (36-46); Hemoglobin 10.4 g/dL (12.0-16.0); Lymphocytes Absolute Auto 800 /uL (1100-4500); Lymphocytes Percent Auto 13.8 % (25-40); Mean Corpuscular HGB Conc 32.6 % (30-36); Mean Corpuscular Hemoglobin 31.6 PG (26-34); Mean Corpuscular Volume 96.7 fL (80-100); Monocytes Absolute Auto 400 /uL (0-900); Monocytes Percent Auto 8.1 % (3-14); Neutrophils Absolute Auto 4200 /uL (1500-7000); Neutrophils Percent Auto 76.6 % (50-75); Platelet Count 418 X10^3/uL (150-400); Red Cell Distribution Width 14.9 % (11.6-14.8); White Blood Cell Count 5.5 X10^3/uL (4.5-11.0)
[2020-01-22 12:21] LABS: BUN Creatinine Ratio 12.1 (6-22); Blood Urea Nitrogen 8 mg/dL (7-17); Calcium 9.7 mg/dL (8.4-10.2); Carbon Dioxide 30 mmol/L (22-32); Chloride 104 mmol/L (98-107); Estimated Glomerular Filt Rate > 60.0 mL/min (>60); Glucose 98 mg/dL (80-110); HEMOLYSIS < 15 (0-50); Potassium 4.5 mmol/L (3.4-5.1); Sodium 139 mmol/L (137-145)
== END ==
PROVIDERS: PCP Internal Medicine; Referring Provider Internal Medicine; Visit Provider Internal Medicine
DX: C78.01 Secondary malignant neoplasm of right lung (principal); C78.02 Secondary malignant neoplasm of left lung; C78.7 Secondary malignant neoplasm of liver and intrahepatic bile duct; C55 Malignant neoplasm of uterus, part unspecified
CPT/HCPCS: 36415; 71260; 74177; 80048; 85025; Q9967

== ENCOUNTER → 2020-02-16 11:02 | Outpatient (CLI) | payer OTHER, SELFPAY ==
[2020-02-17 19:11] LABS: COVID19 Sendout Not Detected (Not Detect)
== END ==
PROVIDERS: PCP Internal Medicine; Visit Provider Physician Assistant
DX: Z11.59 Encounter for screening for other viral diseases (principal)
CPT/HCPCS: 87635

== ENCOUNTER 2020-02-19 07:49 | Outpatient (CLI) | payer OTHER, MEDICAID, SELFPAY ==
[2020-02-19] VITALS (12 sets, daily range): BP systolic 109–149; BP diastolic 60–83; PULSE 86–97; RESP 15–18; TEMP 36.6–37.1; O2SAT 95–100; BMI 22.6
--- NOTE | 2020-02-19 | PATH_ITS ---
[facility] Accession Number: [id number] . 01 Material submitted: . liver - LEFT LOBE LIVER BIOPSY . 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 Please see comment. [facility] 02/24/2020 1846 Local . 02 Comment: These very small biopsy fragments are of an epithelioid, hepatoid population of cells that is morphologically and immunophenotypically similar to the patient's prior biopsy from 2013 ([id number]). . As part of routine microbiology quality control technician, this case was also reviewed by Dr. Mcmullen, Dr. Hughes, Dr. De La O and Dr. Landers, who agree with the interpretation. Dr. Osorio discussed preliminary findings with Dr. Uribe on 02/23/2020. Next Generation Sequencing has been requested by the provider. . . . 02 Electronically signed: . Rochelle Osorio MD, Pathologist NPI- [id number] . 01 Gross description: . LEFT LOBE LIVER BIOPSY: Received in formalin is 1 fragment(s) of marie, soft tissue measuring 1.3 x 0.1 x 0.1 cm submitted entirely in 1 cassette(s) /QBJ 02/20/2020 0801 Local . 02 Microscopic: . Immunohistochemical stains were performed to characterize the cells of interest. All control stains showed appropriate reactivity. . Results: Desmin - Variably positive. Estrogen Receptor - Rare positive cells. Progesterone Receptor - Negative, Less than 1% of cells are weakly positive. Myosin - Variably positive. CD34 - Negative in the cells of interest. Sinuosoidal pattern. Arginase - Negative. Glypican 3 - Negative. PASD - No normal liver structures identified. Reticulin - Weak to absent. CODIE - Negative in the cells of interest. It highlights possible bile duct epithelium. HepPar1 - Negative. . Interpretation: The overall immunophenotype is compatible with the patient's previously diagnosed metastatic leiomyosarcoma. The absence of CODIE, HepPar1 and arginase expression argues against a hepatic cell population. . * This test was developed and its performance characteristics determined by [facility]. It has not been cleared or approved by the U.S. Food and Drug Administration. The FDA has determined that such clearance or approval is not necessary. This test is used for clinical purposes. It should not be regarded as investigational or for research. . 02 Pathologist provided ICD-10: C78.7 . 02 CPT . 269755, 260206, 865437, B74665, [id number] Performed at: 01 [facility] [address] [id number] MD Fernando Scott MD Phone: [phone] Performed at: 02 [facility] [place] [address] [place] [id number] MD Rochelle Osorio MD Phone: [phone]
--- NOTE | 2020-02-19 09:40 | DI.US.S_ITS ---
PROCEDURE: US BIOPSY LIVER Ultrasound-guided liver biopsy with sedation analgesia for 15 minutes. INDICATIONS: Biopsy enlarging lesion left lobe of liver. History of leiomyosarcoma. TECHNIQUE: The indications, alternatives, benefits, risks, and complications of the procedure were explained to the patient. Written informed consent was obtained and placed in the chart. Continuous EKG and hemodynamic monitoring was started by trained personnel. Real-time sonography was utilized to choose the site for percutaneous hepatic biopsy. The skin was prepped and draped in the usual sterile fashion. 1% lidocaine was infiltrated down to the hepatic capsule. A coaxial needle was then advanced into the liver under direct sonographic visualization. A biopsy apparatus was then utilized, and core biopsies were obtained. The needle was then withdrawn; a bandage and overlying weight were applied to the biopsy site. COMPARISON: [facility], CT, CT CHEST ABD PEL W CON, 01/22/2020, 12:38. FINDINGS: Biopsy site(s): Left hepatic lobe Needle: [employer]no biopsy needle set. Number of passes: 4 Medications: 1% lidocaine for local anaesthesia. IV Versed and Fentanyl for conscious sedation for 15 minutes (see nursing record). Complications: None. IMPRESSION: Successful ultrasound-guided liver biopsy, with pathology results pending. No immediate complications. Dictated by: Amy Slaughter MD, PhD on 02/19/2020 at 12:49 Approved by: Amy Slaughter MD, PhD on 02/19/2020 at 12:50
--- NOTE | 2020-02-19 09:57 | PC.NURSE ---
pt stating she does not want sedation for liver biopsy
[2020-02-19] MEDS: fentaNYL 100 MCG/2 ML INJ 50 MCG IV (10:29)
--- NOTE | 2020-02-19 10:40 | SUR.PHASEII ---
pt arrived back from procedure. Bedside report received from NAOMY Ashley. Pt in stable condition, vss. Pt alert and talking to RN and pt son brought to bedside. Bandaid to abdomen observed to be c/d/i.
--- NOTE | 2020-02-19 10:49 | SUR.PHASEII ---
Sand bag in place over biopsy site per orders.
--- NOTE | 2020-02-19 11:42 | SUR.PHASEII ---
Pt remains stable at this time, vss. pt supine with sandbag over bandaid. Pt denies any pain/discomfort. Pt son at bedside.
[2020-02-19 12:33] LABS: Hematocrit 29.8 % (36-46)
--- NOTE | 2020-02-19 13:15 | SUR.PHASEII ---
Laying BP 134/75, HR 95 Standing BP 139/86, HR 94 Completed at 1315, time of discharge.
--- NOTE | 2020-02-19 13:18 | SUR.PHASEII ---
Verbal order received from radiologist for pt to be discharged at this time. pt dc to home in stable condition, vss.
== END 2020-02-19 13:19 | disposition home or self-care (01) ==
PROVIDERS: Radiology Diagnostic Radiology; PCP Internal Medicine; Referring Provider Internal Medicine; Visit Provider Internal Medicine
PROC: BF25ZZZ Computerized Tomography (CT Scan) of Liver (ICD-10-PCS; CPT 47000; principal; 2020-02-19 09:30)
DX: C78.7 Secondary malignant neoplasm of liver and intrahepatic bile duct (principal); Z85.89 Personal history of malignant neoplasm of other organs and systems
CPT/HCPCS: 36415; 49180; 76942; 85014; J3010

== ENCOUNTER → 2020-03-23 12:57 | Outpatient (CLI) | payer OTHER, SELFPAY ==
--- NOTE | 2020-03-23 13:23 | DI.CT.S_ITS ---
PROCEDURE: CT CHEST ABD PEL W CON INDICATIONS: Restaging metastatic sarcoma TECHNIQUE: After the administration of oral and intravenous contrast, 5 mm thick sections acquired from the lung apices to the symphysis. 5 mm coronal and sagittal reformats were performed, with additional 7 mm coronal MIP reformats through the lungs. For radiation dose reduction, the following was used: automated exposure control, adjustment of mA and/or kV according to patient size. COMPARISON: [facility], CT, CT CHEST ABD PEL W CON, 01/22/2020, 12:38. [facility], CT, CT CHEST ABD PEL W CON, 10/26/2019, 13:42. FINDINGS: Image quality: Excellent. 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 A nodule abutting the major fissure on the right superiorly has not enlarged.. No pleural effusions or pneumothorax. Central and peripheral airways appear patent and normal in caliber. Mediastinum: Heart size is normal. No pericardial effusion. No mediastinal or hilar adenopathy by size criteria. Thoracic aorta and central pulmonary arteries are normal in size. Esophagus is normal in caliber. No hiatal hernia. Chest wall: No axillary or supraclavicular adenopathy by size criteria. Thyroid gland appears normal where well seen. ABDOMEN: Solid organs: Liver is normal in size but abnormal in enhancement. The liver has contained multi focal metastatic disease, infiltrating much of the left hepatic lobe lateral segment, but this pattern has enlarged, deviating the fissure for the falciform ligament farther to the right, and infiltrating more deeply into the right aspect of the lateral segment. Additionally, within the right hepatic lobe anterior segment enlarging nodules within the liver parenchyma can be seen at the level of the right portal vein bifurcation anteriorly. A metastatic nodule immediately below has further enlarged, previously poorly visualized and now measuring up to 2.6 cm. More inferiorly several metastatic nodules at the inferior tip of the right hepatic lobe have further enlarged, and a new lesion appears to have developed along the capsular border in that area. Gallbladder is again seen to contain a moderate-sized gallstone, calcified, showing no evidence of obstruction or inflammation. Biliary system is non dilated. Pancreas enhances normally. Spleen is normal in size and enhancement. No adrenal nodules. Kidneys demonstrate normal size and enhancement, without hydronephrosis. Peritoneum and bowel: Bowel loops demonstrate normal wall thickness and caliber. No free fluid or air. Nodes and vessels: No retroperitoneal or mesenteric adenopathy by size criteria. Aorta and inferior vena cava are normal in size. Miscellaneous: No ventral hernias. PELVIS: Genitourinary: Bladder wall thickness is normal. Miscellaneous: No inguinal hernias or adenopathy. Bones: No suspicious bony lesions. No vertebral body compression fractures. IMPRESSION: 1. Stable appearance of multifocal metastatic disease involving the lung parenchyma with a pattern of lymphangitic spread is the likely underlying cause. 2. Definite interval worsening of hepatic metastatic disease both in terms of enlargement of previously present metastatic lesions and also development of new hepatic metastatic foci. Dictated by: Manoj Reis M.D. on 03/23/2020 at 17:20 Approved by: Manoj Reis M.D. on 03/23/2020 at 17:32
== END ==
PROVIDERS: PCP Internal Medicine; Referring Provider Internal Medicine; Visit Provider Internal Medicine
DX: C49.9 Malignant neoplasm of connective and soft tissue, unspecified (principal); C78.7 Secondary malignant neoplasm of liver and intrahepatic bile duct; C78.01 Secondary malignant neoplasm of right lung; C78.02 Secondary malignant neoplasm of left lung; K80.20 Calculus of gallbladder without cholecystitis without obstruction
CPT/HCPCS: 71260; 74177; Q9967

== ENCOUNTER → 2020-05-30 11:20 | Outpatient (CLI) | payer OTHER, MEDICAID, SELFPAY ==
--- NOTE | 2020-05-30 | DI.CT.S_ITS ---
PROCEDURE: CT CHEST ABD PEL W CON INDICATIONS: Secondary malignant neoplasm of liver and intrahep TECHNIQUE: After the administration of intravenous contrast, 5 mm thick sections acquired from the lung apices to the symphysis. 5 mm coronal and sagittal reformats were performed, with additional 7 mm MIP reformats through the lungs. For radiation dose reduction, the following was used: automated exposure control, adjustment of mA and/or kV according to patient size. COMPARISON: [facility], CT, CT CHEST ABD PEL W CON, 03/23/2020, 14:06. FINDINGS: Image quality: Excellent. CHEST: No definite new or acute consolidation. There is scattered scarring and architectural distortion which is largely unchanged, and likely reflect areas of tree disease. Linear scarring/atelectasis involving the right upper lobe may reflect post therapeutic changes as before. There is an ill-defined right fissural nodule measuring 1.3 x 1.2 cm, slightly enlarged previously measuring 1.2 x 1.1 cm. There is adjacent ill-defined subcentimeter nodularity with bronchovascular distribution which is new for example image 86/6. Remainder of the lungs demonstrates unchanged appearance since 03/23/20. No pleural effusions or pneumothorax. Airway thickening in keeping with nonspecific bronchitis and/or reactive airways disease. Sub 5 mm nodule in the anterior lingula on image 177 is unchanged. Mediastinum: Heart size is normal. Coronary artery calcifications are present. No pericardial effusion. No mediastinal or hilar adenopathy by size criteria. Thoracic aorta and central pulmonary arteries are normal in size. Esophagus is normal in caliber. Moderate hiatal hernia. Chest wall: No axillary or supraclavicular adenopathy by size criteria. Thyroid gland unremarkable . ABDOMEN: Multiple, ill-defined hepatic metastases are again noted. There is slight increase in the size lesion at the dome of the liver seen on image 41/2 measuring 1.6 x 2.3 cm, previously 1.5 x 1.8 cm Gallbladder contains a gallstone as before otherwise unremarkable. . Biliary system is non dilated. Pancreas enhances normally. Spleen is normal in size and enhancement. No adrenal nodules. Kidneys demonstrate normal size and enhancement, without hydronephrosis. Peritoneum and bowel: Bowel loops demonstrate normal wall thickness and caliber. No free fluid or air. Appendix is normal in size and there is an incidental appendicoliths, unchanged. Nodes and vessels: No retroperitoneal or mesenteric adenopathy by size criteria. Aorta and inferior vena cava are normal in size. Miscellaneous: No ventral hernias. PELVIS: Genitourinary: Bladder wall thickness is normal. Miscellaneous: No inguinal hernias or adenopathy. Bones: No vertebral body compression fracture. Spondylytic changes and facet arthropathy. IMPRESSION: Slight increase in right fissural nodule, and adjacent bronchovascular nodularity also noted which suggests mild interval progression in pulmonary metastatic disease, possibly early lymphovascular spread of tumor. Numerous hepatic metastases, some of which demonstrate slight increase in size although this could be due to evolving tumor necrosis. Recommend close continued surveillance. Elsewhere, grossly stable examination. Incidental cholelithiasis as before Additional chronic and incidental findings as above. Dictated by: Jaime Singleton M.D. on 05/30/2020 at 12:41 Approved by: Jaime Singleton M.D. on 05/30/2020 at 13:09
== END ==
PROVIDERS: PCP Internal Medicine; Referring Provider Radiology Radiation Oncology; Visit Provider Radiology Radiation Oncology
DX: C78.7 Secondary malignant neoplasm of liver and intrahepatic bile duct (principal)
CPT/HCPCS: 71260; 74177; Q9967

== ENCOUNTER → 2020-07-07 15:22 | Outpatient (ROUT) | payer OTHER, MEDICAID, SELFPAY | PROVIDERS: PCP Internal Medicine; Visit Provider Internal Medicine | DX: N39.0 Urinary tract infection, site not specified (principal) | CPT/HCPCS: 87077; 87086; 87186 ==

== ENCOUNTER → 2020-07-28 12:25 | Outpatient (CLI) | payer OTHER, MEDICAID, SELFPAY ==
--- NOTE | 2020-07-28 12:26 | DI.CT.S_ITS ---
PROCEDURE: CT CHEST ABD PEL W CON INDICATIONS: Follow-up uterine sarcoma TECHNIQUE: After the administration of oral and intravenous contrast, 5 mm thick sections acquired from the lung apices to the symphysis. 5 mm coronal and sagittal reformats were performed, with additional 7 mm coronal MIP reformats through the lungs. For radiation dose reduction, the following was used: automated exposure control, adjustment of mA and/or kV according to patient size. COMPARISON: [facility], CT, CT CHEST ABD PEL W CON, 05/30/2020, 11:41. FINDINGS: Image quality: Excellent. CHEST: Lungs and pleura: Wedge-shaped consolidation in posterior aspect of right apex is unchanged in size and appearance with adjacent atelectasis likely represent treated disease. 5-6 mm solid nodule in posterior medial aspect of right apex is seen unchanged from prior study series 3, image 74. Ill-defined airspace opacity in posterior pleura of left upper and lower lobe are also seen unchanged from previous study consistent with post treatment changes. Previously described lobulated nodule anterior to right minor fissure now measures up to 1.5 x 1.6 cm in size compared to 1.3 x 1.2 cm in size on previous study. Adjacent ill-defined linear nodularity is also seen and slightly more prominent in size on the current study series 3, image 112 and 110. Masslike consolidations also seen scattered in posterior lateral aspect of right lower lobe and right middle lobe unchanged in size and appearance from previous study and may represent post treatment changes. Scarring/atelectasis in left lingular segment and left lower lobe are also unchanged. No pleural effusions or pneumothorax. Central and peripheral airways appear patent and normal in caliber. Mediastinum: Heart size is normal. No pericardial effusion. Oaib-ky-utsgyopc atherosclerotic disease is noted. No mediastinal or hilar adenopathy by size criteria. Thoracic aorta and central pulmonary arteries are normal in size. Esophagus is normal in caliber. Moderate hiatal hernia is again seen unchanged from prior study. Chest wall: No axillary or supraclavicular adenopathy by size criteria. Thyroid gland is within normal limits. ABDOMEN: Solid organs: Again noted are multiple heterogeneously enhancing hypodense liver lesions occupying entire left hepatic lobe and scattered throughout right hepatic lobe not significantly changed in size and appearance from previous study. Finding is consistent with multiple hepatic metastases. Gallbladder contains a calcified gallstone unchanged from prior study. No gallbladder wall thickening or fluid. Biliary system is non dilated. Pancreas enhances normally. Spleen is normal in size and enhancement. No adrenal nodules. Kidneys demonstrate normal size and enhancement, without hydronephrosis. Peritoneum and bowel: There is no evidence of bowel obstruction. Suggestion of significant ascending colon and transverse colon wall thickening is noted with narrowing of the lumen. No significant pericolonic fat stranding is seen. No abscess collection. No peritoneal free fluid or free air. Nodes and vessels: No retroperitoneal or mesenteric adenopathy by size criteria. Aorta and inferior vena cava are normal in size. Extensive atherosclerotic disease is seen. Miscellaneous: No ventral hernias. PELVIS: Genitourinary: Bladder wall thickness is normal. Miscellaneous: No inguinal hernias or adenopathy. Bones: No suspicious bony lesions. No vertebral body compression fractures. Degenerative disc disease throughout thoracic and lumbar spine is seen. IMPRESSION: 1. Stable ill-defined airspace consolidations scattered in bilateral lung field extending to involve bilateral pleura unchanged in size and appearance from prior study most likely represent post treatment changes. 2. Patient's known right upper lobe nodule anterior to minor fissure has further increased in size with adjacent nodular densities also more prominent in size compared to prior study concerning for progression of pulmonary metastatic disease. No new pulmonary nodule is seen. No pleural effusion or pneumothorax. Airway is patent. 3. Extensive liver metastases, with previously noted right hepatic lobe lesions is centrally stable in size and appearance. Patient's known large right hepatic lobe lesion is smaller in size on the current study and measures up to 12 x 5.6 x 14.1 cm in size compared to 13.4 x 5.3 x 16.5 cm in size on previous study measuring at the same level. 4. Suggestion of ascending colon and transverse colon wall thickening and edema new since previous study which may be due to under distension. Infectious inflammatory colitis cannot be excluded. Dictated by: Hernan Corona M.D. on 07/28/2020 at 15:29 Approved by: Hernan Corona M.D. on 07/28/2020 at 15:46
== END ==
PROVIDERS: PCP Internal Medicine; Referring Provider Internal Medicine; Visit Provider Internal Medicine
DX: C55 Malignant neoplasm of uterus, part unspecified (principal); C78.7 Secondary malignant neoplasm of liver and intrahepatic bile duct; C78.02 Secondary malignant neoplasm of left lung; R91.8 Other nonspecific abnormal finding of lung field; I25.10 Atherosclerotic heart disease of native coronary artery without angina pectoris; K44.9 Diaphragmatic hernia without obstruction or gangrene
CPT/HCPCS: 36415; 71260; 74177; 80053; 85025

== ENCOUNTER 2020-08-10 16:45 | Outpatient (RCR) | payer MEDICARE, OTHER, MEDICAID, SELFPAY ==
--- NOTE | 2019-06-15 17:07 | PT.OIE ---
Current Diagnoses Primary osteoarthritis, left shoulder (06/15/19) Pain in left shoulder (06/15/19) Stiffness of left shoulder, not elsewhere classified (06/15/19) Unspecified rotator cuff tear or rupture of left shoulder, not specified as traumatic (06/15/19) Laceration of muscle, fascia and tendon of long head of biceps, left arm, sequela (06/15/19) Past Surgical History (Last Reviewed 04/15/19 @ 16:06 by Kwadwo Fitzgerald DO) Status post dilation and curettage Visit Care Team Role Provider Type Fuad Burkett MD Primary Care Provider Physician Specialty: Internal Medicine Address: [address] [place] [address], [id number] Email: [email or web address] [email or web address] Lindsay MD Attending Provider Physician Specialty: Orthopedic Surgery Address: [address] [place] [address], [address] Email: [email or web address] Physical Therapy Initial Evaluation PT-OP-A Visit Information Start: 06/15/19 15:45 Freq: Status: Active Protocol: Document 06/15/19 14:30 DCW (Rec: 06/15/19 15:53 DCW [id number]) Out-Patient Physical Therapy Visit Information Visit Information Visit Type Initial Evaluation Visit Start Time 14:30 Visit Stop Time 15:15 Total Visit Minutes 45 Visit Number 1 Number of JUNIOR QA ANALYST Visits 0 Evaluation Information Evaluation Date 06/15/19 PT-OP-B Current Condition Start: 06/15/19 15:45 Freq: Status: Active Protocol: Document 06/15/19 14:30 DCW (Rec: 06/15/19 15:53 DCW [id number]) Current Condition History of Current Condition Onset Date 05/30/19 Current Complaints Left shoulder pain, movement restriction History of Current Condition Pt is a 73 year old female presenting 2.5 weeks s/p surgical repair of a left rotator cuff tear, A/C arthritis, and LH biceps tear. 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 Prior Treatments and Tests s/p ARCR, acromioplasty HIREN, anchor biceps tendon Prior Shoulder MRI: IMPRESSION: 1. Moderate acromioclavicular joint osteoarthritis and downsloping acromion depressing the musculotendinous junction of supraspinatus and infraspinatus. 2. Tendinosis and low to moderate grade articular and bursal surface partial- thickness tear involving distal supraspinatus and infraspinatus extending to musculotendinous junction. Mild supraspinatus muscle atrophy. 3. Tendinosis and low to moderate grade partial- thickness tear involving proximal intra-articular portion of long head biceps tendon. 4. No evidence of focal labral tear. Per Hernan Corona M.D. 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 Patient Reported Progress Same Patient Questionnaires Quick Dash- Upper Extremity Quick Dash UE Score 25% Quick Dash UE Impairment 20 to 39% Impaired (Score 20- 39) OP-PT Pain Assessment Pain Assessment Grid Paper Pain Assessment Grid Completed Yes Location Left Shoulder Intensity 6 Scale Used Numeric (1 - 10) PT-OP-K Range of Motion Start: 06/15/19 15:45 Freq: Status: Active Protocol: Document 06/15/19 14:30 DCW (Rec: 06/15/19 17:06 DCW [id number]) Shoulder Goniometric Range of Motion Shoulder Left Passive Testing Position Sitting Flexion 55 Abduction 57 External Rotation at 0 degrees Abduction 8 Left Active Testing Position Sitting Flexion 38 Abduction 42 External Rotation at 0 degrees Abduction 0 PT-OP-M Strength Start: 06/15/19 15:45 Freq: Status: Active Protocol: Document 06/15/19 14:30 DCW (Rec: 06/15/19 17:06 DCW [id number]) Shoulder Strength Shoulder Manual Muscle Testing Left Reason Not Measured Orthopedic Precautions,Pain Comments Recent surgical intervention, 1.5 pound lifting precautions PT-OP-Q Treatments Start: 06/15/19 15:45 Freq: Status: Active Protocol: Document 06/15/19 14:30 DCW (Rec: 06/15/19 17:06 DCW [id number]) Therapeutic Exercises Sitting Exercises PROM Sitting Exercise Name Flexion, Abduction Side left Standing Exercises Pendulums Standing Exercise Name Pendulums Side left PT-OP-T Assessment and Plan Start: 06/15/19 15:45 Freq: Status: Active Protocol: Document 06/15/19 14:30 DCW (Rec: 06/15/19 17:06 DC [id number]) Physical Therapy Assessment Rehab Potential Rehabilitation Potential Good Evaluation Complexity Number of Personal Factors/Comorbidities 3 or More Number of Body Systems Impaired 3 Clinical Presentation at Evaluation Evolving Impairments Impairments Functional Activities, Functional Mobility,Pain, Posture,ROM,Strength,Tone Goals Three Impairment 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 flexion and extension to ensure ability to perform farm chores when allowed per post-op protocol. LTG Duration 08/16/19 Two Impairment Pt unable to use left arm to wash hair Window Framer Goal (LTG) Pt to wash hair using left arm with no increase in symptoms within protocol guidelines LTG Duration 08/16/19 One Impairment Pt does not have an appropriate home exercise program Short Term Goal (STG) Pt to be independent and compliant with an appropriate HEP STG Duration 07/16/19 Assessment Summary Assessment Pt presenting with limitations in left shoulder movement and function as expected following ARCR, acromioplasty HIREN, and anchor of her biceps tendon. Pt currently limited with ROM and strength both due to pain and due to post-op protocol. Pt PROM flexion at 55?, Abd at 57?, and ER at 8?. Post-op protocol should be followed to ensure full healing with minimal complications. Pt currently has a 1.5 pound weight restriction. Pt very anxious to improve, and may push herself to progress too quickly without reminders from therapist and son. Physical Therapy Plan Frequency and Duration Frequency of Treatment 2x/Week Duration of Treatment 12 weeks Plan of Care Start Date 06/15/19 Plan of Care End Date 09/07/19 Therapeutic Interventions Therapeutic Interventions Home Exercise Program,Joint Mobilizations,Manual Therapy, Patient/Caregiver Education, Self-Care/Home Management,Soft Tissue Mobilization, Therapeutic Activities, Therapeutic Exercises Modalities Cold Pack/Ice Massage,Electric Stimulation,Hot Packs, Ultrasound Next Visit Focus/Plan Next Note Type Treatment Note Next Visit Plan PROM, Pendulum per post-op protocol
--- NOTE | 2019-06-15 17:07 | PT.OPPOC ---
Current Diagnoses Primary osteoarthritis, left shoulder (06/15/19) Pain in left shoulder (06/15/19) Stiffness of left shoulder, not elsewhere classified (06/15/19) Unspecified rotator cuff tear or rupture of left shoulder, not specified as traumatic (06/15/19) Laceration of muscle, fascia and tendon of long head of biceps, left arm, sequela (06/15/19) Visit Care Team Role Provider Type Fuad Burkett MD Primary Care Provider Physician Specialty: Internal Medicine Address: [address] [place] [address], [address] Email: [email or web address] Rory Lindsay MD Attending Provider Physician Specialty: Orthopedic Surgery Address: [address] [place] [address], [address] Email: [email or web address] Plan Of Care PT-OP-T Assessment and Plan Start: 06/15/19 15:45 Freq: Status: Active Protocol: Document 06/15/19 14:30 DCW (Rec: 06/15/19 17:06 DCW [id number]) Physical Therapy Assessment Rehab Potential Rehabilitation Potential Good Evaluation Complexity Number of Personal Factors/Comorbidities 3 or More Number of Body Systems Impaired 3 Clinical Presentation at Evaluation Evolving Impairments Impairments Functional Activities, Functional Mobility,Pain, Posture,ROM,Strength,Tone Goals Three Impairment 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 flexion and extension to ensure ability to perform farm chores when allowed per post-op protocol. LTG Duration 08/16/19 Two Impairment Pt unable to use left arm to wash hair Prison Goal (LTG) Pt to wash hair using left arm with no increase in symptoms within protocol guidelines LTG Duration 08/16/19 One Impairment Pt does not have an appropriate home exercise program Short Term Goal (STG) Pt to be independent and compliant with an appropriate HEP STG Duration 07/16/19 Assessment Summary Assessment Pt presenting with limitations in left shoulder movement and function as expected following ARCR, acromioplasty HIREN, and anchor of her biceps tendon. Pt currently limited with ROM and strength both due to pain and due to post-op protocol. Pt PROM flexion at 55?, Abd at 57?, and ER at 8?. Post-op protocol should be followed to ensure full healing with minimal complications. Pt currently has a 1.5 pound weight restriction. Pt very anxious to improve, and may push herself to progress too quickly without reminders from therapist and son. Physical Therapy Plan Frequency and Duration Frequency of Treatment 2x/Week Duration of Treatment 12 weeks Plan of Care Start Date 06/15/19 Plan of Care End Date 09/07/19 Therapeutic Interventions Therapeutic Interventions Home Exercise Program,Joint Mobilizations,Manual Therapy, Patient/Caregiver Education, Self-Care/Home Management,Soft Tissue Mobilization, Therapeutic Activities, Therapeutic Exercises Modalities Cold Pack/Ice Massage,Electric Stimulation,Hot Packs, Ultrasound Next Visit Focus/Plan Next Note Type Treatment Note Next Visit Plan PROM, Pendulum per post-op protocol Plan of Care Dates Plan of Care Start Date 06/15/19 Plan of Care End Date 09/07/19
--- NOTE | 2019-06-17 15:10 | PT.OTN ---
Current Diagnoses Primary osteoarthritis, left shoulder (06/17/19) Pain in left shoulder (06/17/19) Stiffness of left shoulder, not elsewhere classified (06/17/19) Unspecified rotator cuff tear or rupture of left shoulder, not specified as traumatic (06/17/19) Laceration of muscle, fascia and tendon of long head of biceps, left arm, sequela (06/17/19) Physical Therapy Treatment Note PT-OP-A Visit Information Start: 06/15/19 15:45 Freq: Status: Active Protocol: Document 06/17/19 14:25 DCW (Rec: 06/17/19 15:08 DCW [id number]) Out-Patient Physical Therapy Visit Information Visit Information Visit Type Treatment Note Visit Start Time 14:25 Visit Stop Time 15:10 Total Visit Minutes 45 Visit Number 2 Number of WATER VALVE MECHANIC Visits 0 Evaluation Information Evaluation Date 06/15/19 PT-OP-B Current Condition Start: 06/15/19 15:45 Freq: Status: Active Protocol: Document 06/15/19 14:30 DCW (Rec: 06/15/19 15:53 DCW [id number]) Current Condition History of Current Condition Onset Date 05/30/19 Current Complaints Left shoulder pain, movement restriction History of Current Condition Pt is a 73 year old female presenting 2.5 weeks s/p surgical repair of a left rotator cuff tear, A/C arthritis, and LH biceps tear. 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 Prior Treatments and Tests s/p ARCR, acromioplasty HIREN, anchor biceps tendon Prior Shoulder MRI: IMPRESSION: 1. Moderate acromioclavicular joint osteoarthritis and downsloping acromion depressing the musculotendinous junction of supraspinatus and infraspinatus. 2. Tendinosis and low to moderate grade articular and bursal surface partial- thickness tear involving distal supraspinatus and infraspinatus extending to musculotendinous junction. Mild supraspinatus muscle atrophy. 3. Tendinosis and low to moderate grade partial- thickness tear involving proximal intra-articular portion of long head biceps tendon. 4. No evidence of focal labral tear. Per Hernna Corona M.D. 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 I went to [facility] and walked around with it dangling for about an hour. PT-OP-K Range of Motion Start: 06/15/19 15:45 Freq: Status: Active Protocol: Document 06/15/19 14:30 DCW (Rec: 06/15/19 17:06 DCW [id number]) Shoulder Goniometric Range of Motion Shoulder Left Passive Testing Position Sitting Flexion 55 Abduction 57 External Rotation at 0 degrees Abduction 8 Left Active Testing Position Sitting Flexion 38 Abduction 42 External Rotation at 0 degrees Abduction 0 PT-OP-M Strength Start: 06/15/19 15:45 Freq: Status: Active Protocol: Document 06/15/19 14:30 DCW (Rec: 06/15/19 17:06 DCW [id number]) Shoulder Strength Shoulder Manual Muscle Testing Left Reason Not Measured Orthopedic Precautions,Pain Comments Recent surgical intervention, 1.5 pound lifting precautions PT-OP-Q Treatments Start: 06/15/19 15:45 Freq: Status: Active Protocol: Document 06/17/19 14:25 DCW (Rec: 06/17/19 15:08 DCW [id number]) Therapeutic Exercises Sitting Exercises PROM Sitting Exercise Name Flexion, Abduction Side left Equipment Used PVC Manual Therapy Treatment Other Other Manual Treatments GH PROM - Flexion, Abduction, ER PT-OP-T Assessment and Plan Start: 06/15/19 15:45 Freq: Status: Active Protocol: Document 06/17/19 14:25 DCW (Rec: 06/17/19 15:08 DCW [id number]) Physical Therapy Assessment Impairments Impairments Functional Activities, Functional Mobility,Pain, Posture,ROM,Strength,Tone Goals Three Impairment Limited ROM prevents pt from returning to farm chores Field Appraiser Goal (LTG) Pt to improve AROM of left arm to 120? flexion and extension to ensure ability to perform farm chores when allowed per post-op protocol. LTG Duration 08/16/19 Two Impairment Pt unable to use left arm to wash hair Skilled Nursing Goal (LTG) Pt to wash hair using left arm with no increase in symptoms within protocol guidelines LTG Duration 08/16/19 One Impairment Pt does not have an appropriate home exercise program Short Term Goal (STG) Pt to be independent and compliant with an appropriate HEP STG Duration 07/16/19 Assessment Summary Assessment Pt progressing well. PROM improved to 90 degrees with both Flex and Abd today, from 55 and 57 degrees, respectively, on Saturday. Physical Therapy Plan Frequency and Duration Frequency of Treatment 2x/Week Duration of Treatment 12 weeks Plan of Care Start Date 06/15/19 Plan of Care End Date 09/07/19 Therapeutic Interventions Therapeutic Interventions Home Exercise Program,Joint Mobilizations,Manual Therapy, Patient/Caregiver Education, Self-Care/Home Management,Soft Tissue Mobilization, Therapeutic Activities, Therapeutic Exercises Modalities Cold Pack/Ice Massage,Electric Stimulation,Hot Packs, Ultrasound Next Visit Focus/Plan Next Note Type Treatment Note Next Visit Plan PROM, Pendulum per post-op protocol
--- NOTE | 2019-06-22 15:16 | PT.OTN ---
Current Diagnoses Primary osteoarthritis, left shoulder (06/22/19) Pain in left shoulder (06/22/19) Stiffness of left shoulder, not elsewhere classified (06/22/19) Unspecified rotator cuff tear or rupture of left shoulder, not specified as traumatic (06/22/19) Laceration of muscle, fascia and tendon of long head of biceps, left arm, sequela (06/22/19) Physical Therapy Treatment Note PT-OP-A Visit Information Start: 06/15/19 15:45 Freq: Status: Active Protocol: Document 06/22/19 14:30 DCW (Rec: 06/22/19 15:16 DCW [id number]) Out-Patient Physical Therapy Visit Information Visit Information Visit Type Treatment Note Visit Start Time 14:30 Visit Stop Time 15:15 Total Visit Minutes 45 Visit Number 3 Number of SCHOOL AGE TEACHER Visits 0 Evaluation Information Evaluation Date 06/15/19 PT-OP-B Current Condition Start: 06/15/19 15:45 Freq: Status: Active Protocol: Document 06/15/19 14:30 DCW (Rec: 06/15/19 15:53 DCW [id number]) Current Condition History of Current Condition Onset Date 05/30/19 Current Complaints Left shoulder pain, movement restriction History of Current Condition Pt is a 73 year old female presenting 2.5 weeks s/p surgical repair of a left rotator cuff tear, A/C arthritis, and LH biceps tear. 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 Prior Treatments and Tests s/p ARCR, acromioplasty HIREN, anchor biceps tendon Prior Shoulder MRI: IMPRESSION: 1. Moderate acromioclavicular joint osteoarthritis and downsloping acromion depressing the musculotendinous junction of supraspinatus and infraspinatus. 2. Tendinosis and low to moderate grade articular and bursal surface partial- thickness tear involving distal supraspinatus and infraspinatus extending to musculotendinous junction. Mild supraspinatus muscle atrophy. 3. Tendinosis and low to moderate grade partial- thickness tear involving proximal intra-articular portion of long head biceps tendon. 4. No evidence of focal labral tear. Per Hernan Corona M.D. 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 PT-OP-K Range of Motion Start: 06/15/19 15:45 Freq: Status: Active Protocol: Document 06/15/19 14:30 DCW (Rec: 06/15/19 17:06 DCW [id number]) Shoulder Goniometric Range of Motion Shoulder Left Passive Testing Position Sitting Flexion 55 Abduction 57 External Rotation at 0 degrees Abduction 8 Left Active Testing Position Sitting Flexion 38 Abduction 42 External Rotation at 0 degrees Abduction 0 PT-OP-M Strength Start: 06/15/19 15:45 Freq: Status: Active Protocol: Document 06/15/19 14:30 DCW (Rec: 06/15/19 17:06 DCW [id number]) Shoulder Strength Shoulder Manual Muscle Testing Left Reason Not Measured Orthopedic Precautions,Pain Comments Recent surgical intervention, 1.5 pound lifting precautions PT-OP-Q Treatments Start: 06/15/19 15:45 Freq: Status: Active Protocol: Document 06/22/19 14:30 DCW (Rec: 06/22/19 15:16 DCW [id number]) Therapeutic Exercises Sitting Exercises PROM Sitting Exercise Name Flexion, Abduction Side left Equipment Used PVC Manual Therapy Treatment Other Other Manual Treatments GH PROM - Flexion, Abduction, ER PT-OP-T Assessment and Plan Start: 06/15/19 15:45 Freq: Status: Active Protocol: Document 06/22/19 14:30 DCW (Rec: 06/22/19 15:16 DCW [id number]) Physical Therapy Assessment Impairments Impairments Functional Activities, Functional Mobility,Pain, Posture,ROM,Strength,Tone Goals Three Impairment Limited ROM prevents pt from returning to farm chores Fdc Goal (LTG) Pt to improve AROM of left arm to 120? flexion and extension to ensure ability to perform farm chores when allowed per post-op protocol. LTG Duration 08/16/19 Two Impairment Pt unable to use left arm to wash hair Flange Machine Operator Goal (LTG) Pt to wash hair using left arm with no increase in symptoms within protocol guidelines LTG Duration 08/16/19 One Impairment Pt does not have an appropriate home exercise program Short Term Goal (STG) Pt to be independent and compliant with an appropriate HEP STG Duration 07/16/19 Assessment Summary Assessment With pt's son's recent medical status change following his fall, pt is now relying more on her left arm to perform chores around her home, which may negatively impact her recovery. Attempted to educate pt on the importance of following her protocol. Physical Therapy Plan Frequency and Duration Frequency of Treatment 2x/Week Duration of Treatment 12 weeks Plan of Care Start Date 06/15/19 Plan of Care End Date 09/07/19 Therapeutic Interventions Therapeutic Interventions Home Exercise Program,Joint Mobilizations,Manual Therapy, Patient/Caregiver Education, Self-Care/Home Management,Soft Tissue Mobilization, Therapeutic Activities, Therapeutic Exercises Modalities Cold Pack/Ice Massage,Electric Stimulation,Hot Packs, Ultrasound Next Visit Focus/Plan Next Note Type Treatment Note Next Visit Plan PROM, Pendulum per post-op protocol
--- NOTE | 2019-06-24 15:30 | PT.OTN ---
Current Diagnoses Primary osteoarthritis, left shoulder (06/24/19) Pain in left shoulder (06/24/19) Stiffness of left shoulder, not elsewhere classified (06/24/19) Unspecified rotator cuff tear or rupture of left shoulder, not specified as traumatic (06/24/19) Laceration of muscle, fascia and tendon of long head of biceps, left arm, sequela (06/24/19) Physical Therapy Treatment Note PT-OP-A Visit Information Start: 06/15/19 15:45 Freq: Status: Active Protocol: Document 06/24/19 14:30 DCW (Rec: 06/24/19 15:30 DCW [id number]) Out-Patient Physical Therapy Visit Information Visit Information Visit Type Treatment Note Visit Start Time 14:30 Visit Stop Time 15:15 Total Visit Minutes 45 Visit Number 4 Number of SANITARY ENGINEERING TEACHER Visits 0 Evaluation Information Evaluation Date 06/15/19 PT-OP-B Current Condition Start: 06/15/19 15:45 Freq: Status: Active Protocol: Document 06/15/19 14:30 DCW (Rec: 06/15/19 15:53 DCW [id number]) Current Condition History of Current Condition Onset Date 05/30/19 Current Complaints Left shoulder pain, movement restriction History of Current Condition Pt is a 73 year old female presenting 2.5 weeks s/p surgical repair of a left rotator cuff tear, A/C arthritis, and LH biceps tear. 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 Prior Treatments and Tests s/p ARCR, acromioplasty HIREN, anchor biceps tendon Prior Shoulder MRI: IMPRESSION: 1. Moderate acromioclavicular joint osteoarthritis and downsloping acromion depressing the musculotendinous junction of supraspinatus and infraspinatus. 2. Tendinosis and low to moderate grade articular and bursal surface partial- thickness tear involving distal supraspinatus and infraspinatus extending to musculotendinous junction. Mild supraspinatus muscle atrophy. 3. Tendinosis and low to moderate grade partial- thickness tear involving proximal intra-articular portion of long head biceps tendon. 4. No evidence of focal labral tear. Per Hernan Corona M.D. 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 Pt reports she has had lateral upper arm pain since her last visit. PT-OP-K Range of Motion Start: 06/15/19 15:45 Freq: Status: Active Protocol: Document 06/15/19 14:30 DCW (Rec: 06/15/19 17:06 DCW [id number]) Shoulder Goniometric Range of Motion Shoulder Left Passive Testing Position Sitting Flexion 55 Abduction 57 External Rotation at 0 degrees Abduction 8 Left Active Testing Position Sitting Flexion 38 Abduction 42 External Rotation at 0 degrees Abduction 0 PT-OP-M Strength Start: 06/15/19 15:45 Freq: Status: Active Protocol: Document 06/15/19 14:30 DCW (Rec: 06/15/19 17:06 DCW [id number]) Shoulder Strength Shoulder Manual Muscle Testing Left Reason Not Measured Orthopedic Precautions,Pain Comments Recent surgical intervention, 1.5 pound lifting precautions PT-OP-Q Treatments Start: 06/15/19 15:45 Freq: Status: Active Protocol: Document 06/24/19 14:30 DCW (Rec: 06/24/19 15:30 DCW [id number]) Manual Therapy Treatment Other Other Manual Treatments GH PROM - Flexion, Abduction, ER, IR PT-OP-T Assessment and Plan Start: 06/15/19 15:45 Freq: Status: Active Protocol: Document 06/24/19 14:30 DCW (Rec: 06/24/19 15:30 DCW [id number]) Physical Therapy Assessment Impairments Impairments Functional Activities, Functional Mobility,Pain, Posture,ROM,Strength,Tone Goals Three Impairment 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 flexion and extension to ensure ability to perform farm chores when allowed per post-op protocol. LTG Duration 08/16/19 Two Impairment Pt unable to use left arm to wash hair Residential Goal (LTG) Pt to wash hair using left arm with no increase in symptoms within protocol guidelines LTG Duration 08/16/19 One Impairment Pt does not have an appropriate home exercise program Short Term Goal (STG) Pt to be independent and compliant with an appropriate HEP STG Duration 07/16/19 Assessment Summary Assessment Pt has some increased deltoid spasm, worked on STM to help decrease tone and discomfort. Physical Therapy Plan Frequency and Duration Frequency of Treatment 2x/Week Duration of Treatment 12 weeks Plan of Care Start Date 06/15/19 Plan of Care End Date 09/07/19 Therapeutic Interventions Therapeutic Interventions Home Exercise Program,Joint Mobilizations,Manual Therapy, Patient/Caregiver Education, Self-Care/Home Management,Soft Tissue Mobilization, Therapeutic Activities, Therapeutic Exercises Modalities Cold Pack/Ice Massage,Electric Stimulation,Hot Packs, Ultrasound Next Visit Focus/Plan Next Note Type Treatment Note Next Visit Plan PROM, Pendulum per post-op protocol
--- NOTE | 2019-06-29 15:15 | PT.OTN ---
Current Diagnoses Primary osteoarthritis, left shoulder (06/29/19) Pain in left shoulder (06/29/19) Stiffness of left shoulder, not elsewhere classified (06/29/19) Unspecified rotator cuff tear or rupture of left shoulder, not specified as traumatic (06/29/19) Laceration of muscle, fascia and tendon of long head of biceps, left arm, sequela (06/29/19) Physical Therapy Treatment Note PT-OP-A Visit Information Start: 06/15/19 15:45 Freq: Status: Active Protocol: Document 06/29/19 14:30 DCW (Rec: 06/29/19 15:15 DCW [id number]) Out-Patient Physical Therapy Visit Information Visit Information Visit Type Treatment Note Visit Start Time 14:30 Visit Stop Time 15:15 Total Visit Minutes 45 Visit Number 5 Number of AESTHETICIAN Visits 0 Evaluation Information Evaluation Date 06/15/19 PT-OP-B Current Condition Start: 06/15/19 15:45 Freq: Status: Active Protocol: Document 06/15/19 14:30 DCW (Rec: 06/15/19 15:53 DCW [id number]) Current Condition History of Current Condition Onset Date 05/30/19 Current Complaints Left shoulder pain, movement restriction History of Current Condition Pt is a 73 year old female presenting 2.5 weeks s/p surgical repair of a left rotator cuff tear, A/C arthritis, and LH biceps tear. 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 Prior Treatments and Tests s/p ARCR, acromioplasty HIREN, anchor biceps tendon Prior Shoulder MRI: IMPRESSION: 1. Moderate acromioclavicular joint osteoarthritis and downsloping acromion depressing the musculotendinous junction of supraspinatus and infraspinatus. 2. Tendinosis and low to moderate grade articular and bursal surface partial- thickness tear involving distal supraspinatus and infraspinatus extending to musculotendinous junction. Mild supraspinatus muscle atrophy. 3. Tendinosis and low to moderate grade partial- thickness tear involving proximal intra-articular portion of long head biceps tendon. 4. No evidence of focal labral tear. Per Hernan Corona M.D. 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 PT-OP-K Range of Motion Start: 06/15/19 15:45 Freq: Status: Active Protocol: Document 06/15/19 14:30 DCW (Rec: 06/15/19 17:06 DCW [id number]) Shoulder Goniometric Range of Motion Shoulder Left Passive Testing Position Sitting Flexion 55 Abduction 57 External Rotation at 0 degrees Abduction 8 Left Active Testing Position Sitting Flexion 38 Abduction 42 External Rotation at 0 degrees Abduction 0 PT-OP-M Strength Start: 06/15/19 15:45 Freq: Status: Active Protocol: Document 06/15/19 14:30 DCW (Rec: 06/15/19 17:06 DCW [id number]) Shoulder Strength Shoulder Manual Muscle Testing Left Reason Not Measured Orthopedic Precautions,Pain Comments Recent surgical intervention, 1.5 pound lifting precautions PT-OP-Q Treatments Start: 06/15/19 15:45 Freq: Status: Active Protocol: Document 06/29/19 14:30 DCW (Rec: 06/29/19 15:15 DCW [id number]) Manual Therapy Treatment Other Other Manual Treatments GH PROM - Flexion, Abduction, ER, IR PT-OP-T Assessment and Plan Start: 06/15/19 15:45 Freq: Status: Active Protocol: Document 06/29/19 14:30 DCW (Rec: 06/29/19 15:15 DCW [id number]) Physical Therapy Assessment Impairments Impairments Functional Activities, Functional Mobility,Pain, Posture,ROM,Strength,Tone Goals Three Impairment Limited ROM prevents pt from returning to farm chores Load Checker Goal (LTG) Pt to improve AROM of left arm to 120? flexion and extension to ensure ability to perform farm chores when allowed per post-op protocol. LTG Duration 08/16/19 Two Impairment Pt unable to use left arm to wash hair Load Checker Goal (LTG) Pt to wash hair using left arm with no increase in symptoms within protocol guidelines LTG Duration 08/16/19 One Impairment Pt does not have an appropriate home exercise program Short Term Goal (STG) Pt to be independent and compliant with an appropriate HEP STG Duration 07/16/19 Assessment Summary Assessment Passive ROM greatly improved today, flexion increased from 55->115 degrees, abduction from 57->90, and ER from 8->51 degrees. Physical Therapy Plan Frequency and Duration Frequency of Treatment 2x/Week Duration of Treatment 12 weeks Plan of Care Start Date 06/15/19 Plan of Care End Date 09/07/19 Therapeutic Interventions Therapeutic Interventions Home Exercise Program,Joint Mobilizations,Manual Therapy, Patient/Caregiver Education, Self-Care/Home Management,Soft Tissue Mobilization, Therapeutic Activities, Therapeutic Exercises Modalities Cold Pack/Ice Massage,Electric Stimulation,Hot Packs, Ultrasound Next Visit Focus/Plan Next Note Type Treatment Note Next Visit Plan PROM, Pendulum per post-op protocol
--- NOTE | 2019-07-01 15:15 | PT.OTN ---
Current Diagnoses Primary osteoarthritis, left shoulder (07/01/19) Pain in left shoulder (07/01/19) Stiffness of left shoulder, not elsewhere classified (07/01/19) Unspecified rotator cuff tear or rupture of left shoulder, not specified as traumatic (07/01/19) Laceration of muscle, fascia and tendon of long head of biceps, left arm, sequela (07/01/19) Physical Therapy Treatment Note PT-OP-A Visit Information Start: 06/15/19 15:45 Freq: Status: Active Protocol: Document 07/01/19 14:30 DCW (Rec: 07/01/19 15:13 DCW [id number]) Out-Patient Physical Therapy Visit Information Visit Information Visit Type Treatment Note Visit Note Pt requested ending 5 min early Visit Start Time 14:30 Visit Stop Time 15:10 Total Visit Minutes 40 Visit Number 6 Number of LEATHER PIECE INSPECTOR Visits 0 Evaluation Information Evaluation Date 06/15/19 PT-OP-B Current Condition Start: 06/15/19 15:45 Freq: Status: Active Protocol: Document 06/15/19 14:30 DCW (Rec: 06/15/19 15:53 DCW [id number]) Current Condition History of Current Condition Onset Date 05/30/19 Current Complaints Left shoulder pain, movement restriction History of Current Condition Pt is a 73 year old female presenting 2.5 weeks s/p surgical repair of a left rotator cuff tear, A/C arthritis, and LH biceps tear. 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 Prior Treatments and Tests s/p ARCR, acromioplasty HIREN, anchor biceps tendon Prior Shoulder MRI: IMPRESSION: 1. Moderate acromioclavicular joint osteoarthritis and downsloping acromion depressing the musculotendinous junction of supraspinatus and infraspinatus. 2. Tendinosis and low to moderate grade articular and bursal surface partial- thickness tear involving distal supraspinatus and infraspinatus extending to musculotendinous junction. Mild supraspinatus muscle atrophy. 3. Tendinosis and low to moderate grade partial- thickness tear involving proximal intra-articular portion of long head biceps tendon. 4. No evidence of focal labral tear. Per Hernan Corona M.D. 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 PT-OP-K Range of Motion Start: 06/15/19 15:45 Freq: Status: Active Protocol: Document 06/15/19 14:30 DCW (Rec: 06/15/19 17:06 DCW [id number]) Shoulder Goniometric Range of Motion Shoulder Left Passive Testing Position Sitting Flexion 55 Abduction 57 External Rotation at 0 degrees Abduction 8 Left Active Testing Position Sitting Flexion 38 Abduction 42 External Rotation at 0 degrees Abduction 0 PT-OP-M Strength Start: 06/15/19 15:45 Freq: Status: Active Protocol: Document 06/15/19 14:30 DCW (Rec: 06/15/19 17:06 DCW [id number]) Shoulder Strength Shoulder Manual Muscle Testing Left Reason Not Measured Orthopedic Precautions,Pain Comments Recent surgical intervention, 1.5 pound lifting precautions PT-OP-Q Treatments Start: 06/15/19 15:45 Freq: Status: Active Protocol: Document 07/01/19 14:30 DCW (Rec: 07/01/19 15:13 DCW [id number]) Manual Therapy Treatment Other Other Manual Treatments GH PROM - Flexion, Abduction, ER, IR PT-OP-T Assessment and Plan Start: 06/15/19 15:45 Freq: Status: Active Protocol: Document 07/01/19 14:30 DCW (Rec: 07/01/19 15:13 DCW [id number]) Physical Therapy Assessment Impairments Impairments Functional Activities, Functional Mobility,Pain, Posture,ROM,Strength,Tone Goals Three Impairment 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 flexion and extension to ensure ability to perform farm chores when allowed per post-op protocol. LTG Duration 08/16/19 Two Impairment Pt unable to use left arm to wash hair Automation Manager Goal (LTG) Pt to wash hair using left arm with no increase in symptoms within protocol guidelines LTG Duration 08/16/19 One Impairment Pt does not have an appropriate home exercise program Short Term Goal (STG) Pt to be independent and compliant with an appropriate HEP STG Duration 07/16/19 Assessment Summary Assessment Passive ROM continuing to improve, should begin AROM at her next appointment in two weeks. Physical Therapy Plan Frequency and Duration Frequency of Treatment 2x/Week Duration of Treatment 12 weeks Plan of Care Start Date 06/15/19 Plan of Care End Date 09/07/19 Therapeutic Interventions Therapeutic Interventions Home Exercise Program,Joint Mobilizations,Manual Therapy, Patient/Caregiver Education, Self-Care/Home Management,Soft Tissue Mobilization, Therapeutic Activities, Therapeutic Exercises Modalities Cold Pack/Ice Massage,Electric Stimulation,Hot Packs, Ultrasound Next Visit Focus/Plan Next Note Type Treatment Note Next Visit Plan PROM, Pendulum per post-op protocol
--- NOTE | 2019-07-09 16:00 | PT.OTN ---
Current Diagnoses Primary osteoarthritis, left shoulder (07/09/19) Pain in left shoulder (07/09/19) Stiffness of left shoulder, not elsewhere classified (07/09/19) Unspecified rotator cuff tear or rupture of left shoulder, not specified as traumatic (07/09/19) Laceration of muscle, fascia and tendon of long head of biceps, left arm, sequela (07/09/19) Physical Therapy Treatment Note PT-OP-A Visit Information Start: 06/15/19 15:45 Freq: Status: Active Protocol: Document 07/09/19 15:15 DCW (Rec: 07/09/19 16:00 DCW [id number]) Out-Patient Physical Therapy Visit Information Visit Information Visit Type Treatment Note Visit Start Time 15:15 Visit Stop Time 16:00 Total Visit Minutes 45 Visit Number 7 Number of ASSEMBLYMAN OR WOMAN Visits 0 Evaluation Information Evaluation Date 06/15/19 PT-OP-B Current Condition Start: 06/15/19 15:45 Freq: Status: Active Protocol: Document 06/15/19 14:30 DCW (Rec: 06/15/19 15:53 DCW [id number]) Current Condition History of Current Condition Onset Date 05/30/19 Current Complaints Left shoulder pain, movement restriction History of Current Condition Pt is a 73 year old female presenting 2.5 weeks s/p surgical repair of a left rotator cuff tear, A/C arthritis, and LH biceps tear. 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 Prior Treatments and Tests s/p ARCR, acromioplasty HIREN, anchor biceps tendon Prior Shoulder MRI: IMPRESSION: 1. Moderate acromioclavicular joint osteoarthritis and downsloping acromion depressing the musculotendinous junction of supraspinatus and infraspinatus. 2. Tendinosis and low to moderate grade articular and bursal surface partial- thickness tear involving distal supraspinatus and infraspinatus extending to musculotendinous junction. Mild supraspinatus muscle atrophy. 3. Tendinosis and low to moderate grade partial- thickness tear involving proximal intra-articular portion of long head biceps tendon. 4. No evidence of focal labral tear. Per Hernan Corona M.D. 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 PT-OP-K Range of Motion Start: 06/15/19 15:45 Freq: Status: Active Protocol: Document 06/15/19 14:30 DCW (Rec: 06/15/19 17:06 DCW [id number]) Shoulder Goniometric Range of Motion Shoulder Left Passive Testing Position Sitting Flexion 55 Abduction 57 External Rotation at 0 degrees Abduction 8 Left Active Testing Position Sitting Flexion 38 Abduction 42 External Rotation at 0 degrees Abduction 0 PT-OP-M Strength Start: 06/15/19 15:45 Freq: Status: Active Protocol: Document 06/15/19 14:30 DCW (Rec: 06/15/19 17:06 DCW [id number]) Shoulder Strength Shoulder Manual Muscle Testing Left Reason Not Measured Orthopedic Precautions,Pain Comments Recent surgical intervention, 1.5 pound lifting precautions PT-OP-Q Treatments Start: 06/15/19 15:45 Freq: Status: Active Protocol: Document 07/09/19 15:15 DCW (Rec: 07/09/19 16:00 DCW [id number]) Therapeutic Exercises Sitting Exercises PROM Sitting Exercise Name Pulleys Side bilateral Comments PROM for left Standing Exercises PROM Standing Exercise Name Wand - flexion, abduction Manual Therapy Treatment Soft Tissue Mobilization Parascapulars Body Location Infraspinatus Mobilization Type Sustained Pressure Other Other Manual Treatments GH PROM - Flexion, Abduction, ER, IR PT-OP-T Assessment and Plan Start: 06/15/19 15:45 Freq: Status: Active Protocol: Document 07/09/19 15:15 DCW (Rec: 07/09/19 16:00 DCW [id number]) Physical Therapy Assessment Impairments Impairments Functional Activities, Functional Mobility,Pain, Posture,ROM,Strength,Tone Goals Three Impairment Limited ROM prevents pt from returning to farm chores Group Home Goal (LTG) Pt to improve AROM of left arm to 120? flexion and extension to ensure ability to perform farm chores when allowed per post-op protocol. 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 Physical Therapy Plan Frequency and Duration Frequency of Treatment 2x/Week Duration of Treatment 12 weeks Plan of Care Start Date 06/15/19 Plan of Care End Date 09/07/19 Therapeutic Interventions Therapeutic Interventions Home Exercise Program,Joint Mobilizations,Manual Therapy, Patient/Caregiver Education, Self-Care/Home Management,Soft Tissue Mobilization, Therapeutic Activities, Therapeutic Exercises Modalities Cold Pack/Ice Massage,Electric Stimulation,Hot Packs, Ultrasound Next Visit Focus/Plan Next Note Type Treatment Note Next Visit Plan PROM, Pendulum per post-op protocol
--- NOTE | 2019-07-14 16:29 | PT.OTN ---
Current Diagnoses Primary osteoarthritis, left shoulder (07/14/19) Pain in left shoulder (07/14/19) Stiffness of left shoulder, not elsewhere classified (07/14/19) Unspecified rotator cuff tear or rupture of left shoulder, not specified as traumatic (07/14/19) Laceration of muscle, fascia and tendon of long head of biceps, left arm, sequela (07/14/19) Physical Therapy Treatment Note PT-OP-A Visit Information Start: 06/15/19 15:45 Freq: Status: Active Protocol: Document 07/14/19 15:40 DCW (Rec: 07/14/19 16:29 DCW [id number]) Out-Patient Physical Therapy Visit Information Visit Information Visit Type Treatment Note Visit Start Time 15:40 Visit Stop Time 16:25 Total Visit Minutes 45 Visit Number 8 Number of CARBON PAPER INTERLEAFER Visits 0 Evaluation Information Evaluation Date 06/15/19 PT-OP-B Current Condition Start: 06/15/19 15:45 Freq: Status: Active Protocol: Document 06/15/19 14:30 DCW (Rec: 06/15/19 15:53 DCW [id number]) Current Condition History of Current Condition Onset Date 05/30/19 Current Complaints Left shoulder pain, movement restriction History of Current Condition Pt is a 73 year old female presenting 2.5 weeks s/p surgical repair of a left rotator cuff tear, A/C arthritis, and LH biceps tear. 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 Prior Treatments and Tests s/p ARCR, acromioplasty HIREN, anchor biceps tendon Prior Shoulder MRI: IMPRESSION: 1. Moderate acromioclavicular joint osteoarthritis and downsloping acromion depressing the musculotendinous junction of supraspinatus and infraspinatus. 2. Tendinosis and low to moderate grade articular and bursal surface partial- thickness tear involving distal supraspinatus and infraspinatus extending to musculotendinous junction. Mild supraspinatus muscle atrophy. 3. Tendinosis and low to moderate grade partial- thickness tear involving proximal intra-articular portion of long head biceps tendon. 4. No evidence of focal labral tear. Per Hernan Corona M.D. 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 PT-OP-K Range of Motion Start: 06/15/19 15:45 Freq: Status: Active Protocol: Document 06/15/19 14:30 DCW (Rec: 06/15/19 17:06 DCW [id number]) Shoulder Goniometric Range of Motion Shoulder Left Passive Testing Position Sitting Flexion 55 Abduction 57 External Rotation at 0 degrees Abduction 8 Left Active Testing Position Sitting Flexion 38 Abduction 42 External Rotation at 0 degrees Abduction 0 PT-OP-M Strength Start: 06/15/19 15:45 Freq: Status: Active Protocol: Document 06/15/19 14:30 DCW (Rec: 06/15/19 17:06 DCW [id number]) Shoulder Strength Shoulder Manual Muscle Testing Left Reason Not Measured Orthopedic Precautions,Pain Comments Recent surgical intervention, 1.5 pound lifting precautions PT-OP-Q Treatments Start: 06/15/19 15:45 Freq: Status: Active Protocol: Document 07/14/19 15:40 DCW (Rec: 07/14/19 16:29 DCW [id number]) Therapeutic Exercises Supine Exercises Shoulder Flexion Supine Exercise Name Supine Flexion AROM Side left Reps/Minutes x10 Sidelying Exercises Shoulder Abduction Sidelying Exercise Name SL Abduction AROM Side left Reps/Minutes x10 External Rotation Sidelying Exercise Name SL ER AROM Side left Reps/Minutes x10 Sitting Exercises PROM Sitting Exercise Name Pulleys Side bilateral Comments AAROM for left Standing Exercises AROM Standing Exercise Name Standing shoulder Flex/Abd Side left Manual Therapy Treatment Soft Tissue Mobilization Parascapulars Body Location Infraspinatus Mobilization Type Sustained Pressure Other Other Manual Treatments GH PROM - Flexion, Abduction, ER, IR PT-OP-T Assessment and Plan Start: 06/15/19 15:45 Freq: Status: Active Protocol: Document 07/14/19 15:40 DCW (Rec: 07/14/19 16:29 DCW [id number]) Physical Therapy Assessment Impairments Impairments Functional Activities, Functional Mobility,Pain, Posture,ROM,Strength,Tone Goals Three Impairment 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 flexion and extension to ensure ability to perform farm chores when allowed per post-op protocol. LTG Duration 08/16/19 Two Impairment Pt unable to use left arm to wash hair Chcf Goal (LTG) Pt to wash hair using left arm with no increase in symptoms within protocol guidelines LTG Duration 08/16/19 One Impairment Pt does not have an appropriate home exercise program Short Term Goal (STG) Pt to be independent and compliant with an appropriate HEP STG Duration 07/16/19 Assessment Summary Assessment Pt PROM improving, increasing AROM activities today, work toward strengthening per post- op protocol. Physical Therapy Plan Frequency and Duration Frequency of Treatment 2x/Week Duration of Treatment 12 weeks Plan of Care Start Date 06/15/19 Plan of Care End Date 09/07/19 Therapeutic Interventions Therapeutic Interventions Home Exercise Program,Joint Mobilizations,Manual Therapy, Patient/Caregiver Education, Self-Care/Home Management,Soft Tissue Mobilization, Therapeutic Activities, Therapeutic Exercises Modalities Cold Pack/Ice Massage,Electric Stimulation,Hot Packs, Ultrasound Next Visit Focus/Plan Next Note Type Treatment Note Next Visit Plan PROM, Pendulum per post-op protocol
--- NOTE | 2019-07-21 16:43 | PT.OTN ---
Current Diagnoses Primary osteoarthritis, left shoulder (07/21/19) Pain in left shoulder (07/21/19) Stiffness of left shoulder, not elsewhere classified (07/21/19) Unspecified rotator cuff tear or rupture of left shoulder, not specified as traumatic (07/21/19) Laceration of muscle, fascia and tendon of long head of biceps, left arm, sequela (07/21/19) Physical Therapy Treatment Note PT-OP-A Visit Information Start: 06/15/19 15:45 Freq: Status: Active Protocol: Document 07/21/19 16:00 DCW (Rec: 07/21/19 16:43 DCW [id number]) Out-Patient Physical Therapy Visit Information Visit Information Visit Type Treatment Note Visit Start Time 16:00 Visit Stop Time 16:45 Total Visit Minutes 45 Visit Number 9 Number of MARSHMALLOW MACHINE WORKER Visits 0 Evaluation Information Evaluation Date 06/15/19 PT-OP-B Current Condition Start: 06/15/19 15:45 Freq: Status: Active Protocol: Document 06/15/19 14:30 DCW (Rec: 06/15/19 15:53 DCW [id number]) Current Condition History of Current Condition Onset Date 05/30/19 Current Complaints Left shoulder pain, movement restriction History of Current Condition Pt is a 73 year old female presenting 2.5 weeks s/p surgical repair of a left rotator cuff tear, A/C arthritis, and LH biceps tear. 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 Prior Treatments and Tests s/p ARCR, acromioplasty HIREN, anchor biceps tendon Prior Shoulder MRI: IMPRESSION: 1. Moderate acromioclavicular joint osteoarthritis and downsloping acromion depressing the musculotendinous junction of supraspinatus and infraspinatus. 2. Tendinosis and low to moderate grade articular and bursal surface partial- thickness tear involving distal supraspinatus and infraspinatus extending to musculotendinous junction. Mild supraspinatus muscle atrophy. 3. Tendinosis and low to moderate grade partial- thickness tear involving proximal intra-articular portion of long head biceps tendon. 4. No evidence of focal labral tear. Per Hernan Corona M.D. 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 PT-OP-K Range of Motion Start: 06/15/19 15:45 Freq: Status: Active Protocol: Document 06/15/19 14:30 DCW (Rec: 06/15/19 17:06 DCW [id number]) Shoulder Goniometric Range of Motion Shoulder Left Passive Testing Position Sitting Flexion 55 Abduction 57 External Rotation at 0 degrees Abduction 8 Left Active Testing Position Sitting Flexion 38 Abduction 42 External Rotation at 0 degrees Abduction 0 PT-OP-M Strength Start: 06/15/19 15:45 Freq: Status: Active Protocol: Document 06/15/19 14:30 DCW (Rec: 06/15/19 17:06 DCW [id number]) Shoulder Strength Shoulder Manual Muscle Testing Left Reason Not Measured Orthopedic Precautions,Pain Comments Recent surgical intervention, 1.5 pound lifting precautions PT-OP-Q Treatments Start: 06/15/19 15:45 Freq: Status: Active Protocol: Document 07/21/19 16:00 DCW (Rec: 07/21/19 16:43 DCW [id number]) Therapeutic Exercises Supine Exercises Shoulder Flexion Supine Exercise Name Supine Flexion AROM Side left Reps/Minutes x10 Sidelying Exercises Shoulder Abduction Sidelying Exercise Name SL Abduction AROM Side left Reps/Minutes x10 External Rotation Sidelying Exercise Name SL ER AROM Side left Reps/Minutes x10 Standing Exercises Flexion Standing Exercise Name Isometric Flexion Side left Equipment Used small ball vs wall Reps/Minutes 5 hold Abduction Standing Exercise Name Isometric Abd Side left Equipment Used small ball vs wall Reps/Minutes 5 hold External Rotation Standing Exercise Name Isometric ER Side left Equipment Used small ball vs wall Reps/Minutes 5 hold AROM Standing Exercise Name Standing shoulder Flex Side left PT-OP-T Assessment and Plan Start: 06/15/19 15:45 Freq: Status: Active Protocol: Document 07/21/19 16:00 DCW (Rec: 07/21/19 16:43 DCW [id number]) Physical Therapy Assessment Impairments Impairments Functional Activities, Functional Mobility,Pain, Posture,ROM,Strength,Tone Goals Three Impairment 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 flexion and extension to ensure ability to perform farm chores when allowed per post-op protocol. LTG Duration 08/16/19 Two Impairment Pt unable to use left arm to wash hair Image Archivist Goal (LTG) Pt to wash hair using left arm with no increase in symptoms within protocol guidelines LTG Duration 08/16/19 One Impairment Pt does not have an appropriate home exercise program Short Term Goal (STG) Pt to be independent and compliant with an appropriate HEP STG Duration 07/16/19 Assessment Summary Assessment Active and passive ROM improving, pt tolerating increased activity level. Physical Therapy Plan Frequency and Duration Frequency of Treatment 2x/Week Duration of Treatment 12 weeks Plan of Care Start Date 06/15/19 Plan of Care End Date 09/07/19 Therapeutic Interventions Therapeutic Interventions Home Exercise Program,Joint Mobilizations,Manual Therapy, Patient/Caregiver Education, Self-Care/Home Management,Soft Tissue Mobilization, Therapeutic Activities, Therapeutic Exercises Modalities Cold Pack/Ice Massage,Electric Stimulation,Hot Packs, Ultrasound Next Visit Focus/Plan Next Note Type Treatment Note Next Visit Plan PROM, Pendulum per post-op protocol
--- NOTE | 2019-07-23 15:11 | PT.OTN ---
Current Diagnoses Primary osteoarthritis, left shoulder (07/23/19) Pain in left shoulder (07/23/19) Stiffness of left shoulder, not elsewhere classified (07/23/19) Unspecified rotator cuff tear or rupture of left shoulder, not specified as traumatic (07/23/19) Laceration of muscle, fascia and tendon of long head of biceps, left arm, sequela (07/23/19) Physical Therapy Treatment Note PT-OP-A Visit Information Start: 06/15/19 15:45 Freq: Status: Active Protocol: Document 07/23/19 14:30 DCW (Rec: 07/23/19 15:11 DCW [id number]) Out-Patient Physical Therapy Visit Information Visit Information Visit Type Treatment Note Visit Start Time 14:30 Visit Stop Time 15:15 Total Visit Minutes 45 Visit Number 10 Number of BRICK BAKER Visits 0 Evaluation Information Evaluation Date 06/15/19 PT-OP-B Current Condition Start: 06/15/19 15:45 Freq: Status: Active Protocol: Document 06/15/19 14:30 DCW (Rec: 06/15/19 15:53 DCW [id number]) Current Condition History of Current Condition Onset Date 05/30/19 Current Complaints Left shoulder pain, movement restriction History of Current Condition Pt is a 73 year old female presenting 2.5 weeks s/p surgical repair of a left rotator cuff tear, A/C arthritis, and LH biceps tear. 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 Prior Treatments and Tests s/p ARCR, acromioplasty HIREN, anchor biceps tendon Prior Shoulder MRI: IMPRESSION: 1. Moderate acromioclavicular joint osteoarthritis and downsloping acromion depressing the musculotendinous junction of supraspinatus and infraspinatus. 2. Tendinosis and low to moderate grade articular and bursal surface partial- thickness tear involving distal supraspinatus and infraspinatus extending to musculotendinous junction. Mild supraspinatus muscle atrophy. 3. Tendinosis and low to moderate grade partial- thickness tear involving proximal intra-articular portion of long head biceps tendon. 4. No evidence of focal labral tear. Per Hernan Corona M.D. 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 PT-OP-K Range of Motion Start: 06/15/19 15:45 Freq: Status: Active Protocol: Document 06/15/19 14:30 DCW (Rec: 06/15/19 17:06 DCW [id number]) Shoulder Goniometric Range of Motion Shoulder Left Passive Testing Position Sitting Flexion 55 Abduction 57 External Rotation at 0 degrees Abduction 8 Left Active Testing Position Sitting Flexion 38 Abduction 42 External Rotation at 0 degrees Abduction 0 PT-OP-M Strength Start: 06/15/19 15:45 Freq: Status: Active Protocol: Document 06/15/19 14:30 DCW (Rec: 06/15/19 17:06 DCW [id number]) Shoulder Strength Shoulder Manual Muscle Testing Left Reason Not Measured Orthopedic Precautions,Pain Comments Recent surgical intervention, 1.5 pound lifting precautions PT-OP-Q Treatments Start: 06/15/19 15:45 Freq: Status: Active Protocol: Document 07/23/19 14:30 DCW (Rec: 07/23/19 15:11 DCW [id number]) Manual Therapy Treatment Soft Tissue Mobilization Parascapulars Body Location Infraspinatus Mobilization Type Sustained Pressure Other Other Manual Treatments GH PROM - Flexion, Abduction, ER, IR PT-OP-T Assessment and Plan Start: 06/15/19 15:45 Freq: Status: Active Protocol: Document 07/23/19 14:30 DCW (Rec: 07/23/19 15:11 DCW [id number]) Physical Therapy Assessment Impairments Impairments Functional Activities, Functional Mobility,Pain, Posture,ROM,Strength,Tone Goals Three Impairment Limited 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 flexion and extension to ensure ability to perform farm chores when allowed per post-op protocol. LTG Duration 08/16/19 Two Impairment Pt unable to use left arm to wash hair Snf Goal (LTG) Pt to wash hair using left arm with no increase in symptoms within protocol guidelines LTG Duration 08/16/19 One Impairment Pt does not have an appropriate home exercise program Short Term Goal (STG) Pt to be independent and compliant with an appropriate HEP STG Duration 07/16/19 Assessment Summary Assessment Treatment today returned mainly to PROM activities, as her shoulder was so flared up from pushing her son around in a wheelchair. Physical Therapy Plan Frequency and Duration Frequency of Treatment 2x/Week Duration of Treatment 12 weeks Plan of Care Start Date 06/15/19 Plan of Care End Date 09/07/19 Therapeutic Interventions Therapeutic Interventions Home Exercise Program,Joint Mobilizations,Manual Therapy, Patient/Caregiver Education, Self-Care/Home Management,Soft Tissue Mobilization, Therapeutic Activities, Therapeutic Exercises Modalities Cold Pack/Ice Massage,Electric Stimulation,Hot Packs, Ultrasound Next Visit Focus/Plan Next Note Type Treatment Note Next Visit Plan PROM, Pendulum per post-op protocol
--- NOTE | 2019-08-04 11:36 | PT-OP ANOTE ---
Pt no-show on 08/04/19
--- NOTE | 2019-08-06 16:00 | PT.OTN ---
Current Diagnoses Primary osteoarthritis, left shoulder (08/06/19) Pain in left shoulder (08/06/19) Stiffness of left shoulder, not elsewhere classified (08/06/19) Unspecified rotator cuff tear or rupture of left shoulder, not specified as traumatic (08/06/19) Laceration of muscle, fascia and tendon of long head of biceps, left arm, sequela (08/06/19) Physical Therapy Treatment Note PT-OP-A Visit Information Start: 06/15/19 15:45 Freq: Status: Active Protocol: Document 08/06/19 15:15 DCW (Rec: 08/06/19 15:59 DCW [id number]) Out-Patient Physical Therapy Visit Information Visit Information Visit Type Treatment Note Visit Start Time 15:15 Visit Stop Time 16:00 Total Visit Minutes 45 Visit Number 11 Number of FINISHING PAN OPERATOR Visits 0 Evaluation Information Evaluation Date 06/15/19 PT-OP-B Current Condition Start: 06/15/19 15:45 Freq: Status: Active Protocol: Document 06/15/19 14:30 DCW (Rec: 06/15/19 15:53 DCW [id number]) Current Condition History of Current Condition Onset Date 05/30/19 Current Complaints Left shoulder pain, movement restriction History of Current Condition Pt is a 73 year old female presenting 2.5 weeks s/p surgical repair of a left rotator cuff tear, A/C arthritis, and LH biceps tear. 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 Prior Treatments and Tests s/p ARCR, acromioplasty HIREN, anchor biceps tendon Prior Shoulder MRI: IMPRESSION: 1. Moderate acromioclavicular joint osteoarthritis and downsloping acromion depressing the musculotendinous junction of supraspinatus and infraspinatus. 2. Tendinosis and low to moderate grade articular and bursal surface partial- thickness tear involving distal supraspinatus and infraspinatus extending to musculotendinous junction. Mild supraspinatus muscle atrophy. 3. Tendinosis and low to moderate grade partial- thickness tear involving proximal intra-articular portion of long head biceps tendon. 4. No evidence of focal labral tear. Per Hernan Corona M.D. 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 Notes it is doing somewhat better now. PT-OP-K Range of Motion Start: 06/15/19 15:45 Freq: Status: Active Protocol: Document 06/15/19 14:30 DCW (Rec: 06/15/19 17:06 DCW [id number]) Shoulder Goniometric Range of Motion Shoulder Left Passive Testing Position Sitting Flexion 55 Abduction 57 External Rotation at 0 degrees Abduction 8 Left Active Testing Position Sitting Flexion 38 Abduction 42 External Rotation at 0 degrees Abduction 0 PT-OP-M Strength Start: 06/15/19 15:45 Freq: Status: Active Protocol: Document 06/15/19 14:30 DCW (Rec: 06/15/19 17:06 DCW [id number]) Shoulder Strength Shoulder Manual Muscle Testing Left Reason Not Measured Orthopedic Precautions,Pain Comments Recent surgical intervention, 1.5 pound lifting precautions PT-OP-Q Treatments Start: 06/15/19 15:45 Freq: Status: Active Protocol: Document 08/06/19 15:15 DCW (Rec: 08/06/19 15:59 DCW [id number]) Therapeutic Exercises Supine Exercises Shoulder Flexion Supine Exercise Name Supine Flexion AROM Side left Reps/Minutes x10 Sidelying Exercises Shoulder Abduction Sidelying Exercise Name SL Abduction AROM Side left Reps/Minutes x10 External Rotation Sidelying Exercise Name SL ER AROM Side left Reps/Minutes x10 Standing Exercises Flexion Standing Exercise Name Isometric Flexion Side left Equipment Used small ball vs wall Reps/Minutes 5 hold x10 Abduction Standing Exercise Name Isometric Abd Side left Equipment Used small ball vs wall Reps/Minutes 5 hold x10 External Rotation Standing Exercise Name Isometric ER Side left Equipment Used small ball vs wall Reps/Minutes 5 hold Manual Therapy Treatment Soft Tissue Mobilization Parascapulars Body Location Infraspinatus Mobilization Type Sustained Pressure Other Other Manual Treatments GH PROM - Flexion, Abduction, ER, IR PT-OP-T Assessment and Plan Start: 06/15/19 15:45 Freq: Status: Active Protocol: Document 08/06/19 15:15 DCW (Rec: 08/06/19 15:59 DCW [id number]) Physical Therapy Assessment Impairments Impairments Functional Activities, Functional Mobility,Pain, Posture,ROM,Strength,Tone Goals Three Impairment 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 flexion and extension to ensure ability to perform farm chores when allowed per post-op protocol. LTG Duration 08/16/19 Two Impairment Pt unable to use left arm to wash hair Halfway Goal (LTG) Pt to wash hair using left arm with no increase in symptoms within protocol guidelines LTG Duration 08/16/19 One Impairment Pt does not have an appropriate home exercise program Short Term Goal (STG) Pt to be independent and compliant with an appropriate HEP STG Duration 07/16/19 Assessment Summary Assessment Pt doing better than she was at her last appointment after pushing her son in a wheelchair, however still is not doing as well as she had been leading up to this incident. Pt mobility, AROM, and strength all appears to be improving. Physical Therapy Plan Frequency and Duration Frequency of Treatment 2x/Week Duration of Treatment 12 weeks Plan of Care Start Date 06/15/19 Plan of Care End Date 09/07/19 Therapeutic Interventions Therapeutic Interventions Home Exercise Program,Joint Mobilizations,Manual Therapy, Patient/Caregiver Education, Self-Care/Home Management,Soft Tissue Mobilization, Therapeutic Activities, Therapeutic Exercises Modalities Cold Pack/Ice Massage,Electric Stimulation,Hot Packs, Ultrasound Next Visit Focus/Plan Next Note Type Treatment Note Next Visit Plan PROM, Pendulum per post-op protocol
--- NOTE | 2019-08-11 16:03 | PT.OTN ---
Current Diagnoses Primary osteoarthritis, left shoulder (08/11/19) Pain in left shoulder (08/11/19) Stiffness of left shoulder, not elsewhere classified (08/11/19) Unspecified rotator cuff tear or rupture of left shoulder, not specified as traumatic (08/11/19) Laceration of muscle, fascia and tendon of long head of biceps, left arm, sequela (08/11/19) Physical Therapy Treatment Note PT-OP-A Visit Information Start: 06/15/19 15:45 Freq: Status: Active Protocol: Document 08/11/19 15:15 DCW (Rec: 08/11/19 16:02 DCW [id number]) Out-Patient Physical Therapy Visit Information Visit Information Visit Type Treatment Note Visit Start Time 15:15 Visit Stop Time 16:00 Total Visit Minutes 45 Visit Number 12 Number of GROOVER AND TURNER Visits 0 Evaluation Information Evaluation Date 06/15/19 PT-OP-B Current Condition Start: 06/15/19 15:45 Freq: Status: Active Protocol: Document 06/15/19 14:30 DCW (Rec: 06/15/19 15:53 DCW [id number]) Current Condition History of Current Condition Onset Date 05/30/19 Current Complaints Left shoulder pain, movement restriction History of Current Condition Pt is a 73 year old female presenting 2.5 weeks s/p surgical repair of a left rotator cuff tear, A/C arthritis, and LH biceps tear. 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 Prior Treatments and Tests s/p ARCR, acromioplasty HIREN, anchor biceps tendon Prior Shoulder MRI: IMPRESSION: 1. Moderate acromioclavicular joint osteoarthritis and downsloping acromion depressing the musculotendinous junction of supraspinatus and infraspinatus. 2. Tendinosis and low to moderate grade articular and bursal surface partial- thickness tear involving distal supraspinatus and infraspinatus extending to musculotendinous junction. Mild supraspinatus muscle atrophy. 3. Tendinosis and low to moderate grade partial- thickness tear involving proximal intra-articular portion of long head biceps tendon. 4. No evidence of focal labral tear. Per Hernan Corona M.D. 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 PT-OP-K Range of Motion Start: 06/15/19 15:45 Freq: Status: Active Protocol: Document 06/15/19 14:30 DCW (Rec: 06/15/19 17:06 DCW [id number]) Shoulder Goniometric Range of Motion Shoulder Left Passive Testing Position Sitting Flexion 55 Abduction 57 External Rotation at 0 degrees Abduction 8 Left Active Testing Position Sitting Flexion 38 Abduction 42 External Rotation at 0 degrees Abduction 0 PT-OP-M Strength Start: 06/15/19 15:45 Freq: Status: Active Protocol: Document 06/15/19 14:30 DCW (Rec: 06/15/19 17:06 DCW [id number]) Shoulder Strength Shoulder Manual Muscle Testing Left Reason Not Measured Orthopedic Precautions,Pain Comments Recent surgical intervention, 1.5 pound lifting precautions PT-OP-Q Treatments Start: 06/15/19 15:45 Freq: Status: Active Protocol: Document 08/11/19 15:15 DCW (Rec: 08/11/19 16:02 DCW [id number]) Therapeutic Exercises Supine Exercises Shoulder Flexion Supine Exercise Name Supine Flexion AROM Side left Reps/Minutes x10 Standing Exercises Internal Rotation Standing Exercise Name Isometric IR Side left Equipment Used small ball on stomach Reps/Minutes 5 hold Flexion Standing Exercise Name Isometric Flexion Side left Equipment Used small ball vs wall Reps/Minutes 5 hold x10 Abduction Standing Exercise Name Isometric Abd Side left Equipment Used small ball vs wall Reps/Minutes 5 hold x10 External Rotation Standing Exercise Name Isometric ER Side left Equipment Used small ball vs wall Reps/Minutes 5 hold AROM Standing Exercise Name Standing Flexion, Abduction Manual Therapy Treatment Soft Tissue Mobilization Parascapulars Body Location Infraspinatus Mobilization Type Sustained Pressure Other Other Manual Treatments GH PROM - Flexion, Abduction, ER, IR PT-OP-T Assessment and Plan Start: 06/15/19 15:45 Freq: Status: Active Protocol: Document 08/11/19 15:15 DCW (Rec: 08/11/19 16:02 DCW [id number]) Physical Therapy Assessment Impairments Impairments Functional Activities, Functional Mobility,Pain, Posture,ROM,Strength,Tone Goals Three Impairment 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 flexion and extension to ensure ability to perform farm chores when allowed per post-op protocol. LTG Duration 08/16/19 Two Impairment Pt unable to use left arm to wash hair Half-Way Goal (LTG) Pt to wash hair using left arm with no increase in symptoms within protocol guidelines LTG Duration 08/16/19 One Impairment Pt does not have an appropriate home exercise program Short Term Goal (STG) Pt to be independent and compliant with an appropriate HEP STG Duration 07/16/19 Assessment Summary Assessment Pt continuing to improve with both active and passive ROM, as well as pain level. Pt reports she was much better behaved since her last appointment, I only lifted one 50 lb bag of grain. Physical Therapy Plan Frequency and Duration Frequency of Treatment 2x/Week Duration of Treatment 12 weeks Plan of Care Start Date 06/15/19 Plan of Care End Date 09/07/19 Therapeutic Interventions Therapeutic Interventions Home Exercise Program,Joint Mobilizations,Manual Therapy, Patient/Caregiver Education, Self-Care/Home Management,Soft Tissue Mobilization, Therapeutic Activities, Therapeutic Exercises Modalities Cold Pack/Ice Massage,Electric Stimulation,Hot Packs, Ultrasound Next Visit Focus/Plan Next Note Type Treatment Note Next Visit Plan PROM, Pendulum per post-op protocol
--- NOTE | 2019-08-13 16:00 | PT.OTN ---
Current Diagnoses Primary osteoarthritis, left shoulder (08/13/19) Pain in left shoulder (08/13/19) Stiffness of left shoulder, not elsewhere classified (08/13/19) Unspecified rotator cuff tear or rupture of left shoulder, not specified as traumatic (08/13/19) Laceration of muscle, fascia and tendon of long head of biceps, left arm, sequela (08/13/19) Physical Therapy Treatment Note PT-OP-A Visit Information Start: 06/15/19 15:45 Freq: Status: Active Protocol: Document 08/13/19 15:15 DCW (Rec: 08/13/19 16:00 DCW [id number]) Out-Patient Physical Therapy Visit Information Visit Information Visit Type Treatment Note Visit Start Time 15:15 Visit Stop Time 16:00 Total Visit Minutes 45 Visit Number 13 Number of FISHER EEL Visits 0 Evaluation Information Evaluation Date 06/15/19 PT-OP-B Current Condition Start: 06/15/19 15:45 Freq: Status: Active Protocol: Document 06/15/19 14:30 DCW (Rec: 06/15/19 15:53 DCW [id number]) Current Condition History of Current Condition Onset Date 05/30/19 Current Complaints Left shoulder pain, movement restriction History of Current Condition Pt is a 73 year old female presenting 2.5 weeks s/p surgical repair of a left rotator cuff tear, A/C arthritis, and LH biceps tear. 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 Prior Treatments and Tests s/p ARCR, acromioplasty HIREN, anchor biceps tendon Prior Shoulder MRI: IMPRESSION: 1. Moderate acromioclavicular joint osteoarthritis and downsloping acromion depressing the musculotendinous junction of supraspinatus and infraspinatus. 2. Tendinosis and low to moderate grade articular and bursal surface partial- thickness tear involving distal supraspinatus and infraspinatus extending to musculotendinous junction. Mild supraspinatus muscle atrophy. 3. Tendinosis and low to moderate grade partial- thickness tear involving proximal intra-articular portion of long head biceps tendon. 4. No evidence of focal labral tear. Per Hernan Corona M.D. 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 PT-OP-K Range of Motion Start: 06/15/19 15:45 Freq: Status: Active Protocol: Document 06/15/19 14:30 DCW (Rec: 06/15/19 17:06 DCW [id number]) Shoulder Goniometric Range of Motion Shoulder Left Passive Testing Position Sitting Flexion 55 Abduction 57 External Rotation at 0 degrees Abduction 8 Left Active Testing Position Sitting Flexion 38 Abduction 42 External Rotation at 0 degrees Abduction 0 PT-OP-M Strength Start: 06/15/19 15:45 Freq: Status: Active Protocol: Document 06/15/19 14:30 DCW (Rec: 06/15/19 17:06 DCW [id number]) Shoulder Strength Shoulder Manual Muscle Testing Left Reason Not Measured Orthopedic Precautions,Pain Comments Recent surgical intervention, 1.5 pound lifting precautions PT-OP-Q Treatments Start: 06/15/19 15:45 Freq: Status: Active Protocol: Document 08/13/19 15:15 DCW (Rec: 08/13/19 16:00 DCW [id number]) Therapeutic Exercises Standing Exercises Flexion Standing Exercise Name Wall slides into flexion - end -range stretch Side left Abduction Standing Exercise Name Wall slides into abduction - end-range stretch Side left AROM Standing Exercise Name Standing Flexion, Abduction Manual Therapy Treatment Soft Tissue Mobilization Parascapulars Body Location Infraspinatus Mobilization Type Sustained Pressure Other Other Manual Treatments GH PROM - Flexion, Abduction, ER, IR PT-OP-T Assessment and Plan Start: 06/15/19 15:45 Freq: Status: Active Protocol: Document 08/13/19 15:15 DCW (Rec: 08/13/19 16:00 DCW [id number]) Physical Therapy Assessment Impairments Impairments Functional Activities, Functional Mobility,Pain, Posture,ROM,Strength,Tone Goals Three Impairment Limited 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 flexion and extension to ensure ability to perform farm chores when allowed per post-op protocol. LTG Duration 08/16/19 Two Impairment Pt unable to use left arm to wash hair Safe Deposit Clerk Goal (LTG) Pt to wash hair using left arm with no increase in symptoms within protocol guidelines LTG Duration 08/16/19 One Impairment Pt does not have an appropriate home exercise program Short Term Goal (STG) Pt to be independent and compliant with an appropriate HEP STG Duration 07/16/19 Assessment Summary Assessment PROM much better today, pt tolerating increased activity with minimal complaints of discomfort, however still likely over-doing lifting at this point in her rehab while doing her farm chores. Physical Therapy Plan Frequency and Duration Frequency of Treatment 2x/Week Duration of Treatment 12 weeks Plan of Care Start Date 06/15/19 Plan of Care End Date 09/07/19 Therapeutic Interventions Therapeutic Interventions Home Exercise Program,Joint Mobilizations,Manual Therapy, Patient/Caregiver Education, Self-Care/Home Management,Soft Tissue Mobilization, Therapeutic Activities, Therapeutic Exercises Modalities Cold Pack/Ice Massage,Electric Stimulation,Hot Packs, Ultrasound Next Visit Focus/Plan Next Note Type Treatment Note Next Visit Plan Increasing AROM, begin to add in strengthening.
--- NOTE | 2019-08-20 12:06 | PT.OTN ---
Current Diagnoses Primary osteoarthritis, left shoulder (08/20/19) Pain in left shoulder (08/20/19) Stiffness of left shoulder, not elsewhere classified (08/20/19) Unspecified rotator cuff tear or rupture of left shoulder, not specified as traumatic (08/20/19) Laceration of muscle, fascia and tendon of long head of biceps, left arm, sequela (08/20/19) Physical Therapy Treatment Note PT-OP-A Visit Information Start: 06/15/19 15:45 Freq: Status: Active Protocol: Document 08/20/19 09:45 DCW (Rec: 08/20/19 12:06 DCW [id number]) Out-Patient Physical Therapy Visit Information Visit Information Visit Type Treatment Note Visit Start Time 09:45 Visit Stop Time 10:30 Total Visit Minutes 45 Visit Number 14 Number of DATA MANAGEMENT CONSULTANT Visits 0 Evaluation Information Evaluation Date 06/15/19 PT-OP-B Current Condition Start: 06/15/19 15:45 Freq: Status: Active Protocol: Document 06/15/19 14:30 DCW (Rec: 06/15/19 15:53 DCW [id number]) Current Condition History of Current Condition Onset Date 05/30/19 Current Complaints Left shoulder pain, movement restriction History of Current Condition Pt is a 73 year old female presenting 2.5 weeks s/p surgical repair of a left rotator cuff tear, A/C arthritis, and LH biceps tear. 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 Prior Treatments and Tests s/p ARCR, acromioplasty HIREN, anchor biceps tendon Prior Shoulder MRI: IMPRESSION: 1. Moderate acromioclavicular joint osteoarthritis and downsloping acromion depressing the musculotendinous junction of supraspinatus and infraspinatus. 2. Tendinosis and low to moderate grade articular and bursal surface partial- thickness tear involving distal supraspinatus and infraspinatus extending to musculotendinous junction. Mild supraspinatus muscle atrophy. 3. Tendinosis and low to moderate grade partial- thickness tear involving proximal intra-articular portion of long head biceps tendon. 4. No evidence of focal labral tear. Per Hernan Corona M.D. 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 Saturday, [employer] bought a cord of fire wood, they were upposed to deliver it and stack it. They didn't stack it , so I had to. Pt also reports she missed a step out in the barn and fell yesterday . Pt reports significant pain all over, but particularly in her affected shoulder. PT-OP-K Range of Motion Start: 06/15/19 15:45 Freq: Status: Active Protocol: Document 06/15/19 14:30 DCW (Rec: 06/15/19 17:06 DCW [id number]) Shoulder Goniometric Range of Motion Shoulder Left Passive Testing Position Sitting Flexion 55 Abduction 57 External Rotation at 0 degrees Abduction 8 Left Active Testing Position Sitting Flexion 38 Abduction 42 External Rotation at 0 degrees Abduction 0 PT-OP-M Strength Start: 06/15/19 15:45 Freq: Status: Active Protocol: Document 06/15/19 14:30 DCW (Rec: 06/15/19 17:06 DCW [id number]) Shoulder Strength Shoulder Manual Muscle Testing Left Reason Not Measured Orthopedic Precautions,Pain Comments Recent surgical intervention, 1.5 pound lifting precautions PT-OP-Q Treatments Start: 06/15/19 15:45 Freq: Status: Active Protocol: Document 08/20/19 09:45 DCW (Rec: 08/20/19 12:06 DCW [id number]) Manual Therapy Treatment Soft Tissue Mobilization Parascapulars Body Location Infraspinatus Mobilization Type Sustained Pressure Other Other Manual Treatments GH PROM - Flexion, Abduction, ER, IR PT-OP-T Assessment and Plan Start: 06/15/19 15:45 Freq: Status: Active Protocol: Document 08/20/19 09:45 DCW (Rec: 08/20/19 12:06 DCW [id number]) Physical Therapy Assessment Impairments Impairments Functional Activities, Functional Mobility,Pain, Posture,ROM,Strength,Tone Goals Three Impairment Limited ROM prevents pt from returning to farm chores Alf Goal (LTG) Pt to improve AROM of left arm to 120? flexion and extension to ensure ability to perform farm chores when allowed per post-op protocol. LTG Duration 08/16/19 Two Impairment Pt unable to use left arm to wash hair Tool And Die Maker Apprentice Goal (LTG) Pt to wash hair using left arm with no increase in symptoms within protocol guidelines LTG Duration 08/16/19 One Impairment Pt does not have an appropriate home exercise program Short Term Goal (STG) Pt to be independent and compliant with an appropriate HEP STG Duration 07/16/19 Assessment Summary Assessment Although pt is sore following her fall yesterday, there does not appear to be any changed in mobility and strength. No noticeable structural changes. Advised pt to rest over the weekend, although pt admitted this is unlikely. Physical Therapy Plan Frequency and Duration Frequency of Treatment 2x/Week Duration of Treatment 12 weeks Plan of Care Start Date 06/15/19 Plan of Care End Date 09/07/19 Therapeutic Interventions Therapeutic Interventions Home Exercise Program,Joint Mobilizations,Manual Therapy, Patient/Caregiver Education, Self-Care/Home Management,Soft Tissue Mobilization, Therapeutic Activities, Therapeutic Exercises Modalities Cold Pack/Ice Massage,Electric Stimulation,Hot Packs, Ultrasound Next Visit Focus/Plan Next Note Type Treatment Note Next Visit Plan Increasing AROM, shoulder strengthening
--- NOTE | 2019-09-15 15:31 | PT.OTN ---
Current Diagnoses Primary osteoarthritis, left shoulder (09/15/19) Pain in left shoulder (09/15/19) Stiffness of left shoulder, not elsewhere classified (09/15/19) Unspecified rotator cuff tear or rupture of left shoulder, not specified as traumatic (09/15/19) Laceration of muscle, fascia and tendon of long head of biceps, left arm, sequela (09/15/19) Physical Therapy Treatment Note PT-OP-A Visit Information Start: 06/15/19 15:45 Freq: Status: Active Protocol: Document 09/15/19 14:30 DCW (Rec: 09/15/19 15:31 DCW [id number]) Out-Patient Physical Therapy Visit Information Visit Information Visit Type Progress Note Visit Start Time 14:30 Visit Stop Time 15:15 Total Visit Minutes 45 Visit Number 15 Number of SOFTWARE DEVELOPMENT ADVISOR Visits 0 Evaluation Information Evaluation Date 06/15/19 PT-OP-B Current Condition Start: 06/15/19 15:45 Freq: Status: Active Protocol: Document 06/15/19 14:30 DCW (Rec: 06/15/19 15:53 DCW [id number]) Current Condition History of Current Condition Onset Date 05/30/19 Current Complaints Left shoulder pain, movement restriction History of Current Condition Pt is a 73 year old female presenting 2.5 weeks s/p surgical repair of a left rotator cuff tear, A/C arthritis, and LH biceps tear. 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 Prior Treatments and Tests s/p ARCR, acromioplasty HIREN, anchor biceps tendon Prior Shoulder MRI: IMPRESSION: 1. Moderate acromioclavicular joint osteoarthritis and downsloping acromion depressing the musculotendinous junction of supraspinatus and infraspinatus. 2. Tendinosis and low to moderate grade articular and bursal surface partial- thickness tear involving distal supraspinatus and infraspinatus extending to musculotendinous junction. Mild supraspinatus muscle atrophy. 3. Tendinosis and low to moderate grade partial- thickness tear involving proximal intra-articular portion of long head biceps tendon. 4. No evidence of focal labral tear. Per Hernan Corona M.D. 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 Pt notes that recently both she and her son have been sick with the cold. PT-OP-K Range of Motion Start: 06/15/19 15:45 Freq: Status: Active Protocol: Document 09/15/19 14:30 DCW (Rec: 09/15/19 14:40 DCW [id number]) Shoulder Goniometric Range of Motion Shoulder Left Passive Testing Position Sitting Flexion 126 Abduction 93 External Rotation at 0 degrees Abduction 43 Left Active Testing Position Sitting Flexion 106 Abduction 105 External Rotation at 0 degrees Abduction 34 Internal Rotation Behind Back (text) L4 PT-OP-M Strength Start: 06/15/19 15:45 Freq: Status: Active Protocol: Document 09/15/19 14:30 DCW (Rec: 09/15/19 14:40 DCW [id number]) Shoulder Strength Shoulder Manual Muscle Testing Left Flexion 3- Fair- Abduction (C5) 3- Fair- External Rotation 4- Good- Internal Rotation 4+ Good+ PT-OP-Q Treatments Start: 06/15/19 15:45 Freq: Status: Active Protocol: Document 09/15/19 14:30 DCW (Rec: 09/15/19 15:31 DCW [id number]) Therapeutic Exercises Supine Exercises Shoulder Flexion Supine Exercise Name Supine Flexion AROM Side left Reps/Minutes x10 Manual Therapy Treatment Soft Tissue Mobilization Parascapulars Body Location Infraspinatus Mobilization Type Sustained Pressure Pec STM Body Location L Pec STM Mobilization Type Sustained Pressure,Trigger Point Release Intensity/Depth Moderate Comments Avoid right secondary to port placement Manual Techniques Testing Type MMT, ROM testing Other Other Manual Treatments GH PROM - Flexion, Abduction, ER, IR PT-OP-T Assessment and Plan Start: 06/15/19 15:45 Freq: Status: Active Protocol: Document 09/15/19 14:30 DCW (Rec: 09/15/19 15:31 DCW [id number]) Physical Therapy Assessment Impairments Impairments Functional Activities, Functional Mobility,Pain, Posture,ROM,Strength,Tone Goals Three Impairment Limited ROM prevents pt from returning to farm chores Halfway Goal (LTG) Pt to improve AROM of left arm to 120? flexion and extension to ensure ability to perform farm chores when allowed per post-op protocol. LTG Duration 10/16/19 - Improving (AROM 106?) Two Impairment Pt unable to use left arm to wash hair Halfway Goal (LTG) Pt to wash hair using left arm with no increase in symptoms within protocol guidelines LTG Duration 10/16/19 - Improving One Impairment Pt does not have an appropriate home exercise program Short Term Goal (STG) Pt to be independent and compliant with an appropriate HEP STG Duration 09/15/19 - Intermittant with HEP Assessment Summary Assessment Pt improving following surgical repair of right rotator cuff. Flexion AROM increased from 38? to 106?, and Abduction from 42? to 105? . Pt has had a few setback since surgery, which have limited her improvement. 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 Pt should continue to benefit from skilled therapy focusing on ROM and strengthening s/p rotator cuff repair. Physical Therapy Plan Frequency and Duration Frequency of Treatment 2x/Week Duration of Treatment 12 weeks Plan of Care Start Date 09/15/19 Plan of Care End Date 12/08/19 Therapeutic Interventions Therapeutic Interventions Home Exercise Program,Joint Mobilizations,Manual Therapy, Patient/Caregiver Education, Self-Care/Home Management,Soft Tissue Mobilization, Therapeutic Activities, Therapeutic Exercises Modalities Cold Pack/Ice Massage,Electric Stimulation,Hot Packs, Ultrasound Next Visit Focus/Plan Next Note Type Treatment Note Next Visit Plan Increasing AROM, shoulder strengthening
--- NOTE | 2019-09-15 15:32 | PT.OPPOC ---
Physical, Occupational & Speech Therapy At [facility] Current Diagnoses Primary osteoarthritis, left shoulder (09/15/19) Pain in left shoulder (09/15/19) Stiffness of left shoulder, not elsewhere classified (09/15/19) Unspecified rotator cuff tear or rupture of left shoulder, not specified as traumatic (09/15/19) Laceration of muscle, fascia and tendon of long head of biceps, left arm, sequela (09/15/19) Visit Care Team Role Provider Type Fuad Burkett MD Primary Care Provider Physician Specialty: Internal Medicine Address: [address] [place] [address], [id number] Email: [email or web address] Rory Lindsay MD Attending Provider Physician Specialty: Orthopedic Surgery Address: [address] [place] [address], [id number] Email: [email or web address] 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 flexion and extension to ensure ability to perform farm chores when allowed per post-op protocol. LTG Duration 10/16/19 - Improving (AROM 106?) Two Impairment Pt unable to use left arm to wash hair Refuse Collector Supervisor Goal (LTG) Pt to wash hair using left arm with no increase in symptoms within protocol guidelines LTG Duration 10/16/19 - Improving One Impairment Pt does not have an appropriate home exercise program Short Term Goal (STG) Pt to be independent and compliant with an appropriate HEP STG Duration 09/15/19 - Intermittant with HEP Assessment Summary Assessment Pt improving following surgical repair of right rotator cuff. Flexion AROM increased from 38? to 106?, and Abduction from 42? to 105? . Pt has had a few setback since surgery, which have limited her improvement. 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 Pt should continue to benefit from skilled therapy focusing on ROM and strengthening s/p rotator cuff repair. Physical Therapy Plan Frequency and Duration Frequency of Treatment 2x/Week Duration of Treatment 12 weeks Plan of Care Start Date 09/15/19 Plan of Care End Date 12/08/19 Therapeutic Interventions Therapeutic Interventions Home Exercise Program,Joint Mobilizations,Manual Therapy, Patient/Caregiver Education, Self-Care/Home Management,Soft Tissue Mobilization, Therapeutic Activities, Therapeutic Exercises Modalities Cold Pack/Ice Massage,Electric Stimulation,Hot Packs, Ultrasound Next Visit Focus/Plan Next Note Type Treatment Note Next Visit Plan Increasing AROM, shoulder strengthening Plan of Care Dates Plan of Care Start Date 09/15/19 Plan of Care End Date 12/08/19 Electronically Signed by: Bull Nelson, PT 09/15/19 [id number] Please Sign and Return: I have reviewed this Plan of Care and certify that the skilled therapy services above are required to meet the patient?s needs. Physician Signature Date Printed Name and Credentials Clinical Instructor Signature Printed Name and Credentials
--- NOTE | 2019-09-24 15:26 | PT.OTN ---
Current Diagnoses Primary osteoarthritis, left shoulder (09/24/19) Pain in left shoulder (09/24/19) Stiffness of left shoulder, not elsewhere classified (09/24/19) Unspecified rotator cuff tear or rupture of left shoulder, not specified as traumatic (09/24/19) Laceration of muscle, fascia and tendon of long head of biceps, left arm, sequela (09/24/19) Physical Therapy Treatment Note PT-OP-A Visit Information Start: 06/15/19 15:45 Freq: Status: Active Protocol: Document 09/24/19 14:30 DCW (Rec: 09/24/19 15:26 DCW [id number]) Out-Patient Physical Therapy Visit Information Visit Information Visit Type Treatment Note Visit Start Time 14:30 Visit Stop Time 15:15 Total Visit Minutes 45 Visit Number 16 Number of BEAMSTER Visits 0 Evaluation Information Evaluation Date 06/15/19 PT-OP-B Current Condition Start: 06/15/19 15:45 Freq: Status: Active Protocol: Document 06/15/19 14:30 DCW (Rec: 06/15/19 15:53 DCW [id number]) Current Condition History of Current Condition Onset Date 05/30/19 Current Complaints Left shoulder pain, movement restriction History of Current Condition Pt is a 73 year old female presenting 2.5 weeks s/p surgical repair of a left rotator cuff tear, A/C arthritis, and LH biceps tear. 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 Prior Treatments and Tests s/p ARCR, acromioplasty HIREN, anchor biceps tendon Prior Shoulder MRI: IMPRESSION: 1. Moderate acromioclavicular joint osteoarthritis and downsloping acromion depressing the musculotendinous junction of supraspinatus and infraspinatus. 2. Tendinosis and low to moderate grade articular and bursal surface partial- thickness tear involving distal supraspinatus and infraspinatus extending to musculotendinous junction. Mild supraspinatus muscle atrophy. 3. Tendinosis and low to moderate grade partial- thickness tear involving proximal intra-articular portion of long head biceps tendon. 4. No evidence of focal labral tear. Per Hernan Corona M.D. 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 PT-OP-K Range of Motion Start: 06/15/19 15:45 Freq: Status: Active Protocol: Document 09/15/19 14:30 DCW (Rec: 09/15/19 14:40 DCW [id number]) Shoulder Goniometric Range of Motion Shoulder Left Passive Testing Position Sitting Flexion 126 Abduction 93 External Rotation at 0 degrees Abduction 43 Left Active Testing Position Sitting Flexion 106 Abduction 105 External Rotation at 0 degrees Abduction 34 Internal Rotation Behind Back (text) L4 PT-OP-M Strength Start: 06/15/19 15:45 Freq: Status: Active Protocol: Document 09/15/19 14:30 DCW (Rec: 09/15/19 14:40 DCW [id number]) Shoulder Strength Shoulder Manual Muscle Testing Left Flexion 3- Fair- Abduction (C5) 3- Fair- External Rotation 4- Good- Internal Rotation 4+ Good+ PT-OP-Q Treatments Start: 06/15/19 15:45 Freq: Status: Active Protocol: Document 09/24/19 14:30 DCW (Rec: 09/24/19 15:26 DCW [id number]) Manual Therapy Treatment Soft Tissue Mobilization Parascapulars Body Location Infraspinatus Mobilization Type Sustained Pressure Pec STM Body Location L Pec STM Mobilization Type Sustained Pressure,Trigger Point Release Intensity/Depth Moderate Comments Avoid right secondary to port placement Other Other Manual Treatments GH PROM - Flexion, Abduction, ER, IR PT-OP-T Assessment and Plan Start: 06/15/19 15:45 Freq: Status: Active Protocol: Document 09/24/19 14:30 DCW (Rec: 09/24/19 15:26 DCW [id number]) Physical Therapy Assessment Impairments Impairments Functional Activities, Functional Mobility,Pain, Posture,ROM,Strength,Tone Goals Three Impairment 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 flexion and extension to ensure ability to perform farm chores when allowed per post-op protocol. LTG Duration 10/16/19 - Improving (AROM 106?) Two Impairment Pt unable to use left arm to wash hair Residential Goal (LTG) Pt to wash hair using left arm with no increase in symptoms within protocol guidelines LTG Duration 10/16/19 - Improving One Impairment Pt does not have an appropriate home exercise program Short Term Goal (STG) Pt to be independent and compliant with an appropriate HEP STG Duration 09/15/19 - Intermittent with HEP Assessment Summary Assessment Pt progressing, but still not where I want to be. PT should benefit from continued therapy to improve strength and ROM in order to increase pt's ability to participate fully in her farm chores. Physical Therapy Plan Frequency and Duration Frequency of Treatment 2x/Week Duration of Treatment 12 weeks Plan of Care Start Date 09/15/19 Plan of Care End Date 12/08/19 Therapeutic Interventions Therapeutic Interventions Home Exercise Program,Joint Mobilizations,Manual Therapy, Patient/Caregiver Education, Self-Care/Home Management,Soft Tissue Mobilization, Therapeutic Activities, Therapeutic Exercises Modalities Cold Pack/Ice Massage,Electric Stimulation,Hot Packs, Ultrasound Next Visit Focus/Plan Next Note Type Treatment Note Next Visit Plan Increasing AROM, shoulder strengthening
--- NOTE | 2020-02-05 16:00 | PT.OTN ---
Current Diagnoses Primary osteoarthritis, left shoulder (02/05/20) Pain in left shoulder (02/05/20) Stiffness of left shoulder, not elsewhere classified (02/05/20) Unspecified rotator cuff tear or rupture of left shoulder, not specified as traumatic (02/05/20) Laceration of muscle, fascia and tendon of long head of biceps, left arm, sequela (02/05/20) Physical Therapy Treatment Note PT-OP-A Visit Information Start: 06/15/19 15:45 Freq: Status: Active Protocol: Document 02/05/20 15:15 DCW (Rec: 02/05/20 15:58 DCW [id number]) Out-Patient Physical Therapy Visit Information Visit Information Visit Type Progress Note Visit Start Time 15:15 Visit Stop Time 16:00 Total Visit Minutes 45 Visit Number 17 Number of MATERIAL LOADER Visits 0 Evaluation Information Evaluation Date 06/15/19 PT-OP-B Current Condition Start: 06/15/19 15:45 Freq: Status: Active Protocol: Document 06/15/19 14:30 DCW (Rec: 06/15/19 15:53 DCW [id number]) Current Condition History of Current Condition Onset Date 05/30/19 Current Complaints Left shoulder pain, movement restriction History of Current Condition Pt is a 73 year old female presenting 2.5 weeks s/p surgical repair of a left rotator cuff tear, A/C arthritis, and LH biceps tear. 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 Prior Treatments and Tests s/p ARCR, acromioplasty HIREN, anchor biceps tendon Prior Shoulder MRI: IMPRESSION: 1. Moderate acromioclavicular joint osteoarthritis and downsloping acromion depressing the musculotendinous junction of supraspinatus and infraspinatus. 2. Tendinosis and low to moderate grade articular and bursal surface partial- thickness tear involving distal supraspinatus and infraspinatus extending to musculotendinous junction. Mild supraspinatus muscle atrophy. 3. Tendinosis and low to moderate grade partial- thickness tear involving proximal intra-articular portion of long head biceps tendon. 4. No evidence of focal labral tear. Per Hernan Corona M.D. 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 PT-OP-K Range of Motion Start: 06/15/19 15:45 Freq: Status: Active Protocol: Document 02/05/20 15:15 DCW (Rec: 02/05/20 15:23 DCW [id number]) Shoulder Goniometric Range of Motion Shoulder Left Passive Testing Position Sitting Flexion 132 Abduction 147 External Rotation at 0 degrees Abduction 50 Left Active Testing Position Sitting Flexion 128 Abduction 96 External Rotation at 0 degrees Abduction 47 Internal Rotation Behind Back (text) T12 PT-OP-M Strength Start: 06/15/19 15:45 Freq: Status: Active Protocol: Document 02/05/20 15:15 DCW (Rec: 02/05/20 15:23 DCW [id number]) Shoulder Strength Shoulder Manual Muscle Testing Left Flexion 3- Fair- Abduction (C5) 3- Fair- External Rotation 4 Good Internal Rotation 4+ Good+ PT-OP-Q Treatments Start: 06/15/19 15:45 Freq: Status: Active Protocol: Document 02/05/20 15:15 DCW (Rec: 02/05/20 15:58 DCW [id number]) Manual Therapy Treatment Soft Tissue Mobilization Parascapulars Body Location Infraspinatus Mobilization Type Sustained Pressure Pec STM Body Location L Pec STM Mobilization Type Sustained Pressure,Trigger Point Release Intensity/Depth Moderate Comments Avoid right secondary to port placement Manual Techniques Testing Type MMT, ROM testing Other Other Manual Treatments GH PROM - Flexion, Abduction, ER, IR PT-OP-T Assessment and Plan Start: 06/15/19 15:45 Freq: Status: Active Protocol: Document 02/05/20 15:15 DCW (Rec: 02/05/20 15:58 DCW [id number]) Physical Therapy Assessment Impairments Impairments Functional Activities, Functional Mobility,Pain, Posture,ROM,Strength,Tone Goals Three Impairment 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 flexion and extension to ensure ability to perform farm chores when allowed per post-op protocol. LTG Duration 04/07/20 Two Impairment Pt unable to use left arm to wash hair Residential Goal (LTG) Pt to wash hair using left arm with no increase in symptoms within protocol guidelines LTG Duration 04/07/20 - Improving One Impairment Pt does not have an appropriate home exercise program Short Term Goal (STG) Pt to be independent and compliant with an appropriate HEP STG Duration 03/07/20 - Intermittant with HEP Assessment Summary Assessment AROM improved after manual therapy and stretching, flexion 130, abduction 142, ER 55. Overall, pt shows general improvement since her last visit pre-Covid 19 shutdown, continues to make slow progress with recovery from left r/c repair, plan to continue previous plan of care . Physical Therapy Plan Frequency and Duration Frequency of Treatment 2x/Week Duration of Treatment 10 weeks Plan of Care Start Date 02/05/20 Plan of Care End Date 04/15/20 Therapeutic Interventions Therapeutic Interventions Home Exercise Program,Joint Mobilizations,Manual Therapy, Patient/Caregiver Education, Self-Care/Home Management,Soft Tissue Mobilization, Therapeutic Activities, Therapeutic Exercises Modalities Cold Pack/Ice Massage,Electric Stimulation,Hot Packs, Ultrasound Next Visit Focus/Plan Next Note Type Treatment Note Next Visit Plan Increasing AROM, shoulder strengthening
--- NOTE | 2020-02-05 16:02 | PT.OPPOC ---
Physical, Occupational & Speech Therapy At [facility] Current Diagnoses Primary osteoarthritis, left shoulder (02/05/20) Pain in left shoulder (02/05/20) Stiffness of left shoulder, not elsewhere classified (02/05/20) Unspecified rotator cuff tear or rupture of left shoulder, not specified as traumatic (02/05/20) Laceration of muscle, fascia and tendon of long head of biceps, left arm, sequela (02/05/20) Visit Care Team Role Provider Type Fuad Burkett MD Primary Care Provider Physician Specialty: Internal Medicine Address: [address] [place] [address], [id number] Email: [email or web address] Attending Provider Physician Specialty: Orthopedic Surgery Address: [address] [place] [address], [id number] Email: [email or web address] Plan Of Care PT-OP-T Assessment and Plan Start: 06/15/19 15:45 Freq: Status: Active Protocol: Document 02/05/20 15:15 DCW (Rec: 02/05/20 15:58 DCW [id number]) Physical Therapy Assessment Impairments Impairments Functional Activities, Functional Mobility,Pain, Posture,ROM,Strength,Tone Goals Three Impairment 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 flexion and extension to ensure ability to perform farm chores when allowed per post-op protocol. LTG Duration 04/07/20 Two Impairment Pt unable to use left arm to wash hair Prison Goal (LTG) Pt to wash hair using left arm with no increase in symptoms within protocol guidelines LTG Duration 04/07/20 - Improving One Impairment Pt does not have an appropriate home exercise program Short Term Goal (STG) Pt to be independent and compliant with an appropriate HEP STG Duration 03/07/20 - Intermittant with HEP Assessment Summary Assessment AROM improved after manual therapy and stretching, flexion 130, abduction 142, ER 55. Overall, pt shows general improvement since her last visit pre-Covid 19 shutdown, continues to make slow progress with recovery from left r/c repair, plan to continue previous plan of care . Physical Therapy Plan Frequency and Duration Frequency of Treatment 2x/Week Duration of Treatment 10 weeks Plan of Care Start Date 02/05/20 Plan of Care End Date 04/15/20 Therapeutic Interventions Therapeutic Interventions Home Exercise Program,Joint Mobilizations,Manual Therapy, Patient/Caregiver Education, Self-Care/Home Management,Soft Tissue Mobilization, Therapeutic Activities, Therapeutic Exercises Modalities Cold Pack/Ice Massage,Electric Stimulation,Hot Packs, Ultrasound Next Visit Focus/Plan Next Note Type Treatment Note Next Visit Plan Increasing AROM, shoulder strengthening Plan of Care Dates Plan of Care Start Date 02/05/20 Plan of Care End Date 04/15/20 Electronically Signed by: Bull Nelson, PT 02/05/20 3790 Please Sign and Return: I have reviewed this Plan of Care and certify that the skilled therapy services above are required to meet the patient?s needs. Physician Signature Date Printed Name and Credentials Clinical Instructor Signature Printed Name and Credentials
--- NOTE | 2020-02-29 17:31 | PT.OTN ---
Current Diagnoses Primary osteoarthritis, left shoulder (02/29/20) Pain in left shoulder (02/29/20) Stiffness of left shoulder, not elsewhere classified (02/29/20) Unspecified rotator cuff tear or rupture of left shoulder, not specified as traumatic (02/29/20) Laceration of muscle, fascia and tendon of long head of biceps, left arm, sequela (02/29/20) Physical Therapy Treatment Note PT-OP-A Visit Information Start: 06/15/19 15:45 Freq: Status: Active Protocol: Document 02/29/20 16:45 DCW (Rec: 02/29/20 17:31 DCW [id number]) Out-Patient Physical Therapy Visit Information Visit Information Visit Type Treatment Note Visit Start Time 16:45 Visit Stop Time 17:30 Total Visit Minutes 45 Visit Number 18 Number of TUBE DRAWING SUPERVISOR Visits 0 Evaluation Information Evaluation Date 06/15/19 PT-OP-B Current Condition Start: 06/15/19 15:45 Freq: Status: Active Protocol: Document 06/15/19 14:30 DCW (Rec: 06/15/19 15:53 DCW [id number]) Current Condition History of Current Condition Onset Date 05/30/19 Current Complaints Left shoulder pain, movement restriction History of Current Condition Pt is a 73 year old female presenting 2.5 weeks s/p surgical repair of a left rotator cuff tear, A/C arthritis, and LH biceps tear. 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 Prior Treatments and Tests s/p ARCR, acromioplasty HIREN, anchor biceps tendon Prior Shoulder MRI: IMPRESSION: 1. Moderate acromioclavicular joint osteoarthritis and downsloping acromion depressing the musculotendinous junction of supraspinatus and infraspinatus. 2. Tendinosis and low to moderate grade articular and bursal surface partial- thickness tear involving distal supraspinatus and infraspinatus extending to musculotendinous junction. Mild supraspinatus muscle atrophy. 3. Tendinosis and low to moderate grade partial- thickness tear involving proximal intra-articular portion of long head biceps tendon. 4. No evidence of focal labral tear. Per Hernan Corona M.D. 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 It's doing pretty good, still sore in one spot though. PT-OP-K Range of Motion Start: 06/15/19 15:45 Freq: Status: Active Protocol: Document 02/05/20 15:15 DCW (Rec: 02/05/20 15:23 DCW [id number]) Shoulder Goniometric Range of Motion Shoulder Left Passive Testing Position Sitting Flexion 132 Abduction 147 External Rotation at 0 degrees Abduction 50 Left Active Testing Position Sitting Flexion 128 Abduction 96 External Rotation at 0 degrees Abduction 47 Internal Rotation Behind Back (text) T12 PT-OP-M Strength Start: 06/15/19 15:45 Freq: Status: Active Protocol: Document 02/05/20 15:15 DCW (Rec: 02/05/20 15:23 DCW [id number]) Shoulder Strength Shoulder Manual Muscle Testing Left Flexion 3- Fair- Abduction (C5) 3- Fair- External Rotation 4 Good Internal Rotation 4+ Good+ PT-OP-Q Treatments Start: 06/15/19 15:45 Freq: Status: Active Protocol: Document 02/29/20 16:45 DCW (Rec: 02/29/20 17:31 DCW [id number]) Cardio Equipment Upper Body Ergometer (UBE) Duration (Minutes) 5 RPM 60 Seat Position 11 Height 2.5 Therapeutic Exercises Standing Exercises Shoulder Press Standing Exercise Name Shoulder Press Side bilateral Resistance 4# Equipment Used PVC Flexion Standing Exercise Name Shoulder flexion Side bilateral Resistance 4# Equipment Used PVC Manual Therapy Treatment Soft Tissue Mobilization Parascapulars Body Location Infraspinatus Mobilization Type Sustained Pressure Pec STM Body Location L Pec STM Mobilization Type Sustained Pressure,Trigger Point Release Intensity/Depth Moderate Comments Avoid right secondary to port placement Other Other Manual Treatments GH PROM - Flexion, Abduction, ER, IR PT-OP-T Assessment and Plan Start: 06/15/19 15:45 Freq: Status: Active Protocol: Document 02/29/20 16:45 DCW (Rec: 02/29/20 17:31 DCW [id number]) Physical Therapy Assessment Impairments Impairments Functional Activities, Functional Mobility,Pain, Posture,ROM,Strength,Tone Goals Three Impairment 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 flexion and extension to ensure ability to perform farm chores when allowed per post-op protocol. LTG Duration 04/07/20 Two Impairment Pt unable to use left arm to wash hair Residential Goal (LTG) Pt to wash hair using left arm with no increase in symptoms within protocol guidelines LTG Duration 04/07/20 - Improving One Impairment Pt does not have an appropriate home exercise program Short Term Goal (STG) Pt to be independent and compliant with an appropriate HEP STG Duration 03/07/20 - Intermittent with HEP Assessment Summary Assessment Pt not feeling well today, notes she recently had a liver biopsy, and has been vomiting every night since then, which means that she has not been eating much and is very low energy. Pt advised to discuss with her PCP. Physical Therapy Plan Frequency and Duration Frequency of Treatment 2x/Week Duration of Treatment 10 weeks Plan of Care Start Date 02/05/20 Plan of Care End Date 04/15/20 Therapeutic Interventions Therapeutic Interventions Home Exercise Program,Joint Mobilizations,Manual Therapy, Patient/Caregiver Education, Self-Care/Home Management,Soft Tissue Mobilization, Therapeutic Activities, Therapeutic Exercises Modalities Cold Pack/Ice Massage,Electric Stimulation,Hot Packs, Ultrasound Next Visit Focus/Plan Next Note Type Treatment Note Next Visit Plan Increasing AROM, shoulder strengthening
--- NOTE | 2020-03-02 17:36 | PT.OTN ---
Current Diagnoses Primary osteoarthritis, left shoulder (03/02/20) Pain in left shoulder (03/02/20) Stiffness of left shoulder, not elsewhere classified (03/02/20) Unspecified rotator cuff tear or rupture of left shoulder, not specified as traumatic (03/02/20) Laceration of muscle, fascia and tendon of long head of biceps, left arm, sequela (03/02/20) Physical Therapy Treatment Note PT-OP-A Visit Information Start: 06/15/19 15:45 Freq: Status: Active Protocol: Document 03/02/20 16:45 DCW (Rec: 03/02/20 17:35 DCW [id number]) Out-Patient Physical Therapy Visit Information Visit Information Visit Type Treatment Note Visit Start Time 16:45 Visit Stop Time 17:30 Total Visit Minutes 45 Visit Number 19 Number of CRUSHING FOREMAN Visits 0 Evaluation Information Evaluation Date 06/15/19 PT-OP-B Current Condition Start: 06/15/19 15:45 Freq: Status: Active Protocol: Document 06/15/19 14:30 DCW (Rec: 06/15/19 15:53 DCW [id number]) Current Condition History of Current Condition Onset Date 05/30/19 Current Complaints Left shoulder pain, movement restriction History of Current Condition Pt is a 73 year old female presenting 2.5 weeks s/p surgical repair of a left rotator cuff tear, A/C arthritis, and LH biceps tear. 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 Prior Treatments and Tests s/p ARCR, acromioplasty HIREN, anchor biceps tendon Prior Shoulder MRI: IMPRESSION: 1. Moderate acromioclavicular joint osteoarthritis and downsloping acromion depressing the musculotendinous junction of supraspinatus and infraspinatus. 2. Tendinosis and low to moderate grade articular and bursal surface partial- thickness tear involving distal supraspinatus and infraspinatus extending to musculotendinous junction. Mild supraspinatus muscle atrophy. 3. Tendinosis and low to moderate grade partial- thickness tear involving proximal intra-articular portion of long head biceps tendon. 4. No evidence of focal labral tear. Per Hernan Corona M.D. 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 PT-OP-K Range of Motion Start: 06/15/19 15:45 Freq: Status: Active Protocol: Document 02/05/20 15:15 DCW (Rec: 02/05/20 15:23 DCW [id number]) Shoulder Goniometric Range of Motion Shoulder Left Passive Testing Position Sitting Flexion 132 Abduction 147 External Rotation at 0 degrees Abduction 50 Left Active Testing Position Sitting Flexion 128 Abduction 96 External Rotation at 0 degrees Abduction 47 Internal Rotation Behind Back (text) T12 PT-OP-M Strength Start: 06/15/19 15:45 Freq: Status: Active Protocol: Document 02/05/20 15:15 DCW (Rec: 02/05/20 15:23 DCW [id number]) Shoulder Strength Shoulder Manual Muscle Testing Left Flexion 3- Fair- Abduction (C5) 3- Fair- External Rotation 4 Good Internal Rotation 4+ Good+ PT-OP-Q Treatments Start: 06/15/19 15:45 Freq: Status: Active Protocol: Document 03/02/20 16:45 DCW (Rec: 03/02/20 17:35 DCW [id number]) Therapeutic Exercises Supine Exercises Shoulder Flexion Supine Exercise Name Supine Flexion AROM Side left Resistance 5# Equipment Used PVC Reps/Minutes x10 Supine Punch Supine Exercise Name Supine Punch /c wand Side bilateral Resistance 5# Standing Exercises Shoulder Press Standing Exercise Name Shoulder Press Side bilateral Resistance 5# Equipment Used PVC Flexion Standing Exercise Name Shoulder flexion Side bilateral Resistance 5# Equipment Used PVC Manual Therapy Treatment Soft Tissue Mobilization Parascapulars Body Location Infraspinatus Mobilization Type Sustained Pressure Pec STM Body Location L Pec STM Mobilization Type Sustained Pressure,Trigger Point Release Intensity/Depth Moderate Comments Avoid right secondary to port placement Other Other Manual Treatments GH PROM - Flexion, Abduction, ER, IR PT-OP-T Assessment and Plan Start: 06/15/19 15:45 Freq: Status: Active Protocol: Document 03/02/20 16:45 DCW (Rec: 03/02/20 17:35 DCW [id number]) Physical Therapy Assessment Impairments Impairments Functional Activities, Functional Mobility,Pain, Posture,ROM,Strength,Tone Goals Three Impairment Limited 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 flexion and extension to ensure ability to perform farm chores when allowed per post-op protocol. LTG Duration 04/07/20 Two Impairment Pt unable to use left arm to wash hair Group Home Goal (LTG) Pt to wash hair using left arm with no increase in symptoms within protocol guidelines LTG Duration 04/07/20 - Improving One Impairment Pt does not have an appropriate home exercise program Short Term Goal (STG) Pt to be independent and compliant with an appropriate HEP STG Duration 03/07/20 - Intermittent with HEP Assessment Summary Assessment Pt shoulder doing fairly well, she is demonstrating improved ROM and increased overall strength. Pt is having trouble with her back, and supposedly will be having a new referral sent over next week. Physical Therapy Plan Frequency and Duration Frequency of Treatment 2x/Week Duration of Treatment 10 weeks Plan of Care Start Date 02/05/20 Plan of Care End Date 04/15/20 Therapeutic Interventions Therapeutic Interventions Home Exercise Program,Joint Mobilizations,Manual Therapy, Patient/Caregiver Education, Self-Care/Home Management,Soft Tissue Mobilization, Therapeutic Activities, Therapeutic Exercises Modalities Cold Pack/Ice Massage,Electric Stimulation,Hot Packs, Ultrasound Next Visit Focus/Plan Next Note Type Treatment Note Next Visit Plan Increasing AROM, shoulder strengthening
--- NOTE | 2020-03-09 17:40 | PT.OTN ---
Current Diagnoses Primary osteoarthritis, left shoulder (03/09/20) Pain in left shoulder (03/09/20) Stiffness of left shoulder, not elsewhere classified (03/09/20) Unspecified rotator cuff tear or rupture of left shoulder, not specified as traumatic (03/09/20) Laceration of muscle, fascia and tendon of long head of biceps, left arm, sequela (03/09/20) Physical Therapy Treatment Note PT-OP-A Visit Information Start: 06/15/19 15:45 Freq: Status: Active Protocol: Document 03/09/20 16:45 DCW (Rec: 03/09/20 17:40 DCW [id number]) Out-Patient Physical Therapy Visit Information Visit Information Visit Type Treatment Note Visit Start Time 16:45 Visit Stop Time 17:30 Total Visit Minutes 45 Visit Number 20 Number of SHAKER PLATE OPERATOR Visits 0 Evaluation Information Evaluation Date 06/15/19 PT-OP-B Current Condition Start: 06/15/19 15:45 Freq: Status: Active Protocol: Document 06/15/19 14:30 DCW (Rec: 06/15/19 15:53 DCW [id number]) Current Condition History of Current Condition Onset Date 05/30/19 Current Complaints Left shoulder pain, movement restriction History of Current Condition Pt is a 73 year old female presenting 2.5 weeks s/p surgical repair of a left rotator cuff tear, A/C arthritis, and LH biceps tear. 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 Prior Treatments and Tests s/p ARCR, acromioplasty HIREN, anchor biceps tendon Prior Shoulder MRI: IMPRESSION: 1. Moderate acromioclavicular joint osteoarthritis and downsloping acromion depressing the musculotendinous junction of supraspinatus and infraspinatus. 2. Tendinosis and low to moderate grade articular and bursal surface partial- thickness tear involving distal supraspinatus and infraspinatus extending to musculotendinous junction. Mild supraspinatus muscle atrophy. 3. Tendinosis and low to moderate grade partial- thickness tear involving proximal intra-articular portion of long head biceps tendon. 4. No evidence of focal labral tear. Per Hernan Corona M.D. 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-OP-C Subjective Start: 06/15/19 15:45 Freq: Status: Active Protocol: Document 03/09/20 16:45 DCW (Rec: 03/09/20 17:40 DCW [id number]) OP-PT Subjective Patient Comments Patient Comments Pt complaining today of more back/shoulder pain on her right side PT-OP-K Range of Motion Start: 06/15/19 15:45 Freq: Status: Active Protocol: Document 02/05/20 15:15 DCW (Rec: 02/05/20 15:23 DCW [id number]) Shoulder Goniometric Range of Motion Shoulder Left Passive Testing Position Sitting Flexion 132 Abduction 147 External Rotation at 0 degrees Abduction 50 Left Active Testing Position Sitting Flexion 128 Abduction 96 External Rotation at 0 degrees Abduction 47 Internal Rotation Behind Back (text) T12 PT-OP-M Strength Start: 06/15/19 15:45 Freq: Status: Active Protocol: Document 02/05/20 15:15 DCW (Rec: 02/05/20 15:23 DCW [id number]) Shoulder Strength Shoulder Manual Muscle Testing Left Flexion 3- Fair- Abduction (C5) 3- Fair- External Rotation 4 Good Internal Rotation 4+ Good+ PT-OP-Q Treatments Start: 06/15/19 15:45 Freq: Status: Active Protocol: Document 03/09/20 16:45 DCW (Rec: 03/09/20 17:40 DCW [id number]) Manual Therapy Treatment Soft Tissue Mobilization Scalenes Body Location B Scalenes Mobilization Type Strumming,Sustained Pressure Rhomboids Body Location B Rhomboids Mobilization Type Strumming,Sustained Pressure, Trigger Point Release Parascapulars Body Location R Infraspinatus Mobilization Type Sustained Pressure Upper Trap Body Location Bilateral Upper Trap Mobilization Type Sustained Pressure,Trigger Point Release Intensity/Depth Moderate Body Position Supine PT-OP-T Assessment and Plan Start: 06/15/19 15:45 Freq: Status: Active Protocol: Document 03/09/20 16:45 DCW (Rec: 03/09/20 17:40 DCW [id number]) Physical Therapy Assessment Impairments Impairments Functional Activities, Functional Mobility,Pain, Posture,ROM,Strength,Tone Goals Three Impairment 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 flexion and extension to ensure ability to perform farm chores when allowed per post-op protocol. 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 Pt should benefit from skilled therapy focusing on STM and strengthening B shoulders to decrease tone and improve mobility. Physical Therapy Plan Frequency and Duration Frequency of Treatment 2x/Week Duration of Treatment 10 weeks Plan of Care Start Date 02/05/20 Plan of Care End Date 04/15/20 Therapeutic Interventions Therapeutic Interventions Home Exercise Program,Joint Mobilizations,Manual Therapy, Patient/Caregiver Education, Self-Care/Home Management,Soft Tissue Mobilization, Therapeutic Activities, Therapeutic Exercises Modalities Cold Pack/Ice Massage,Electric Stimulation,Hot Packs, Ultrasound Next Visit Focus/Plan Next Note Type Treatment Note Next Visit Plan Increasing AROM, shoulder strengthening
--- NOTE | 2020-03-14 17:28 | PT.OTN ---
Current Diagnoses Primary osteoarthritis, left shoulder (03/09/20) Pain in left shoulder (03/09/20) Stiffness of left shoulder, not elsewhere classified (03/09/20) Unspecified rotator cuff tear or rupture of left shoulder, not specified as traumatic (03/09/20) Laceration of muscle, fascia and tendon of long head of biceps, left arm, sequela (03/09/20) Physical Therapy Treatment Note PT-OP-A Visit Information Start: 06/15/19 15:45 Freq: Status: Active Protocol: Document 03/14/20 16:45 DCW (Rec: 03/14/20 17:28 DCW [id number]) Out-Patient Physical Therapy Visit Information Visit Information Visit Type Treatment Note Visit Start Time 16:45 Visit Stop Time 17:30 Total Visit Minutes 45 Visit Number 21 Number of METAL TRIMMER Visits 0 Evaluation Information Evaluation Date 06/15/19 PT-OP-B Current Condition Start: 06/15/19 15:45 Freq: Status: Active Protocol: Document 06/15/19 14:30 DCW (Rec: 06/15/19 15:53 DCW [id number]) Current Condition History of Current Condition Onset Date 05/30/19 Current Complaints Left shoulder pain, movement restriction History of Current Condition Pt is a 73 year old female presenting 2.5 weeks s/p surgical repair of a left rotator cuff tear, A/C arthritis, and LH biceps tear. 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 Prior Treatments and Tests s/p ARCR, acromioplasty HIREN, anchor biceps tendon Prior Shoulder MRI: IMPRESSION: 1. Moderate acromioclavicular joint osteoarthritis and downsloping acromion depressing the musculotendinous junction of supraspinatus and infraspinatus. 2. Tendinosis and low to moderate grade articular and bursal surface partial- thickness tear involving distal supraspinatus and infraspinatus extending to musculotendinous junction. Mild supraspinatus muscle atrophy. 3. Tendinosis and low to moderate grade partial- thickness tear involving proximal intra-articular portion of long head biceps tendon. 4. No evidence of focal labral tear. Per Hernan Corona M.D. 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 PT-OP-K Range of Motion Start: 06/15/19 15:45 Freq: Status: Active Protocol: Document 02/05/20 15:15 DCW (Rec: 02/05/20 15:23 DCW [id number]) Shoulder Goniometric Range of Motion Shoulder Left Passive Testing Position Sitting Flexion 132 Abduction 147 External Rotation at 0 degrees Abduction 50 Left Active Testing Position Sitting Flexion 128 Abduction 96 External Rotation at 0 degrees Abduction 47 Internal Rotation Behind Back (text) T12 PT-OP-M Strength Start: 06/15/19 15:45 Freq: Status: Active Protocol: Document 02/05/20 15:15 DCW (Rec: 02/05/20 15:23 DCW [id number]) Shoulder Strength Shoulder Manual Muscle Testing Left Flexion 3- Fair- Abduction (C5) 3- Fair- External Rotation 4 Good Internal Rotation 4+ Good+ PT-OP-Q Treatments Start: 06/15/19 15:45 Freq: Status: Active Protocol: Document 03/14/20 16:45 DCW (Rec: 03/14/20 17:28 DCW [id number]) Manual Therapy Treatment Soft Tissue Mobilization Scalenes Body Location B Scalenes Mobilization Type Strumming,Sustained Pressure Rhomboids Body Location B Rhomboids Mobilization Type Strumming,Sustained Pressure, Trigger Point Release Parascapulars Body Location R Infraspinatus Mobilization Type Sustained Pressure Upper Trap Body Location Bilateral Upper Trap Mobilization Type Sustained Pressure,Trigger Point Release Intensity/Depth Moderate Body Position Supine PT-OP-T Assessment and Plan Start: 06/15/19 15:45 Freq: Status: Active Protocol: Document 03/14/20 16:45 DCW (Rec: 03/14/20 17:28 DCW [id number]) Physical Therapy Assessment Assessment Summary Assessment Pt began vomiting prison through her treatment session due to ongoing issues with stomach ulcers. Pt reported she wanted to continue therapy . Tolerates STM fairly well, noticeable improvement in shoulder mobility and sensation into right arm. Physical Therapy Plan Frequency and Duration Frequency of Treatment 2x/Week Duration of Treatment 10 weeks Plan of Care Start Date 02/05/20 Plan of Care End Date 04/15/20 Therapeutic Interventions Therapeutic Interventions Home Exercise Program,Joint Mobilizations,Manual Therapy, Patient/Caregiver Education, Self-Care/Home Management,Soft Tissue Mobilization, Therapeutic Activities, Therapeutic Exercises Modalities Cold Pack/Ice Massage,Electric Stimulation,Hot Packs, Ultrasound Next Visit Focus/Plan Next Note Type Treatment Note Next Visit Plan Increasing AROM, shoulder strengthening
--- NOTE | 2020-03-16 17:07 | PT.OTN ---
Current Diagnoses Primary osteoarthritis, left shoulder (03/16/20) Pain in left shoulder (03/16/20) Stiffness of left shoulder, not elsewhere classified (03/16/20) Unspecified rotator cuff tear or rupture of left shoulder, not specified as traumatic (03/16/20) Laceration of muscle, fascia and tendon of long head of biceps, left arm, sequela (03/16/20) Physical Therapy Treatment Note PT-OP-A Visit Information Start: 06/15/19 15:45 Freq: Status: Active Protocol: Document 03/16/20 16:20 DCW (Rec: 03/16/20 17:07 DCW [id number]) Out-Patient Physical Therapy Visit Information Visit Information Visit Type Treatment Note Visit Start Time 16:20 Visit Stop Time 17:05 Total Visit Minutes 45 Visit Number 22 Number of ELEVATOR TENDER Visits 0 Evaluation Information Evaluation Date 06/15/19 PT-OP-B Current Condition Start: 06/15/19 15:45 Freq: Status: Active Protocol: Document 06/15/19 14:30 DCW (Rec: 06/15/19 15:53 DCW [id number]) Current Condition History of Current Condition Onset Date 05/30/19 Current Complaints Left shoulder pain, movement restriction History of Current Condition Pt is a 73 year old female presenting 2.5 weeks s/p surgical repair of a left rotator cuff tear, A/C arthritis, and LH biceps tear. 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 Prior Treatments and Tests s/p ARCR, acromioplasty HIREN, anchor biceps tendon Prior Shoulder MRI: IMPRESSION: 1. Moderate acromioclavicular joint osteoarthritis and downsloping acromion depressing the musculotendinous junction of supraspinatus and infraspinatus. 2. Tendinosis and low to moderate grade articular and bursal surface partial- thickness tear involving distal supraspinatus and infraspinatus extending to musculotendinous junction. Mild supraspinatus muscle atrophy. 3. Tendinosis and low to moderate grade partial- thickness tear involving proximal intra-articular portion of long head biceps tendon. 4. No evidence of focal labral tear. Per Hernan Corona M.D. 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 PT-OP-K Range of Motion Start: 06/15/19 15:45 Freq: Status: Active Protocol: Document 02/05/20 15:15 DCW (Rec: 02/05/20 15:23 DCW [id number]) Shoulder Goniometric Range of Motion Shoulder Left Passive Testing Position Sitting Flexion 132 Abduction 147 External Rotation at 0 degrees Abduction 50 Left Active Testing Position Sitting Flexion 128 Abduction 96 External Rotation at 0 degrees Abduction 47 Internal Rotation Behind Back (text) T12 PT-OP-M Strength Start: 06/15/19 15:45 Freq: Status: Active Protocol: Document 02/05/20 15:15 DCW (Rec: 02/05/20 15:23 DCW [id number]) Shoulder Strength Shoulder Manual Muscle Testing Left Flexion 3- Fair- Abduction (C5) 3- Fair- External Rotation 4 Good Internal Rotation 4+ Good+ PT-OP-Q Treatments Start: 06/15/19 15:45 Freq: Status: Active Protocol: Document 03/16/20 16:20 DCW (Rec: 03/16/20 17:07 DCW [id number]) Manual Therapy Treatment Soft Tissue Mobilization Scalenes Body Location B Scalenes Mobilization Type Strumming,Sustained Pressure Rhomboids Body Location B Rhomboids Mobilization Type Strumming,Sustained Pressure, Trigger Point Release Parascapulars Body Location R Infraspinatus Mobilization Type Sustained Pressure Pec STM Body Location B Pec STM Mobilization Type Sustained Pressure,Trigger Point Release Intensity/Depth Moderate Upper Trap Body Location Bilateral Upper Trap Mobilization Type Sustained Pressure,Trigger Point Release Intensity/Depth Moderate Body Position Supine PT-OP-T Assessment and Plan Start: 06/15/19 15:45 Freq: Status: Active Protocol: Document 03/16/20 16:20 DCW (Rec: 03/16/20 17:07 DCW [id number]) Physical Therapy Assessment Impairments Impairments Functional Activities, Functional Mobility,Pain, Posture,ROM,Strength,Tone Goals Three Impairment 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 flexion and extension to ensure ability to perform farm chores when allowed per post-op protocol. LTG Duration 04/07/20 Two Impairment Pt unable to use left arm to wash hair Research Coordinator Goal (LTG) Pt to wash hair using left arm with no increase in symptoms within protocol guidelines LTG Duration 04/07/20 - Improving One Impairment Pt does not have an appropriate home exercise program Short Term Goal (STG) Pt to be independent and compliant with an appropriate HEP STG Duration 03/07/20 - Intermittent with HEP Assessment Summary Assessment Pt feeling better today than she did on Saturday. Able to tolerate STM with minimal complaints. Pt demonstrates improving tone and ROM. Physical Therapy Plan Frequency and Duration Frequency of Treatment 2x/Week Duration of Treatment 10 weeks Plan of Care Start Date 02/05/20 Plan of Care End Date 04/15/20 Therapeutic Interventions Therapeutic Interventions Home Exercise Program,Joint Mobilizations,Manual Therapy, Patient/Caregiver Education, Self-Care/Home Management,Soft Tissue Mobilization, Therapeutic Activities, Therapeutic Exercises Modalities Cold Pack/Ice Massage,Electric Stimulation,Hot Packs, Ultrasound Next Visit Focus/Plan Next Note Type Treatment Note Next Visit Plan Increasing AROM, shoulder strengthening
--- NOTE | 2020-03-23 17:26 | PT.OTN ---
Current Diagnoses Primary osteoarthritis, left shoulder (03/23/20) Pain in left shoulder (03/23/20) Stiffness of left shoulder, not elsewhere classified (03/23/20) Unspecified rotator cuff tear or rupture of left shoulder, not specified as traumatic (03/23/20) Laceration of muscle, fascia and tendon of long head of biceps, left arm, sequela (03/23/20) Physical Therapy Treatment Note PT-OP-A Visit Information Start: 06/15/19 15:45 Freq: Status: Active Protocol: Document 03/23/20 16:35 DCW (Rec: 03/23/20 17:26 DCW [id number]) Out-Patient Physical Therapy Visit Information Visit Information Visit Type Treatment Note Visit Start Time 16:35 Visit Stop Time 17:20 Total Visit Minutes 45 Visit Number 23 Number of FAST FOOD SALES ASSISTANT Visits 0 Evaluation Information Evaluation Date 06/15/19 PT-OP-B Current Condition Start: 06/15/19 15:45 Freq: Status: Active Protocol: Document 06/15/19 14:30 DCW (Rec: 06/15/19 15:53 DCW [id number]) Current Condition History of Current Condition Onset Date 05/30/19 Current Complaints Left shoulder pain, movement restriction History of Current Condition Pt is a 73 year old female presenting 2.5 weeks s/p surgical repair of a left rotator cuff tear, A/C arthritis, and LH biceps tear. 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 Prior Treatments and Tests s/p ARCR, acromioplasty HIREN, anchor biceps tendon Prior Shoulder MRI: IMPRESSION: 1. Moderate acromioclavicular joint osteoarthritis and downsloping acromion depressing the musculotendinous junction of supraspinatus and infraspinatus. 2. Tendinosis and low to moderate grade articular and bursal surface partial- thickness tear involving distal supraspinatus and infraspinatus extending to musculotendinous junction. Mild supraspinatus muscle atrophy. 3. Tendinosis and low to moderate grade partial- thickness tear involving proximal intra-articular portion of long head biceps tendon. 4. No evidence of focal labral tear. Per Hernan Corona M.D. 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 PT-OP-K Range of Motion Start: 06/15/19 15:45 Freq: Status: Active Protocol: Document 02/05/20 15:15 DCW (Rec: 02/05/20 15:23 DCW [id number]) Shoulder Goniometric Range of Motion Shoulder Left Passive Testing Position Sitting Flexion 132 Abduction 147 External Rotation at 0 degrees Abduction 50 Left Active Testing Position Sitting Flexion 128 Abduction 96 External Rotation at 0 degrees Abduction 47 Internal Rotation Behind Back (text) T12 PT-OP-M Strength Start: 06/15/19 15:45 Freq: Status: Active Protocol: Document 02/05/20 15:15 DCW (Rec: 02/05/20 15:23 DCW [id number]) Shoulder Strength Shoulder Manual Muscle Testing Left Flexion 3- Fair- Abduction (C5) 3- Fair- External Rotation 4 Good Internal Rotation 4+ Good+ PT-OP-Q Treatments Start: 06/15/19 15:45 Freq: Status: Active Protocol: Document 03/23/20 16:35 DCW (Rec: 03/23/20 17:26 DCW [id number]) Manual Therapy Treatment Soft Tissue Mobilization Scalenes Body Location B Scalenes Mobilization Type Strumming,Sustained Pressure Rhomboids Body Location B Rhomboids Mobilization Type Strumming,Sustained Pressure, Trigger Point Release Parascapulars Body Location R Infraspinatus Mobilization Type Sustained Pressure Pec STM Body Location B Pec STM Mobilization Type Sustained Pressure,Trigger Point Release Intensity/Depth Moderate Upper Trap Body Location Bilateral Upper Trap Mobilization Type Sustained Pressure,Trigger Point Release Intensity/Depth Moderate Body Position Supine PT-OP-T Assessment and Plan Start: 06/15/19 15:45 Freq: Status: Active Protocol: Document 03/23/20 16:35 DCW (Rec: 03/23/20 17:26 DCW [id number]) Physical Therapy Assessment Impairments Impairments Functional Activities, Functional Mobility,Pain, Posture,ROM,Strength,Tone Goals Three Impairment Limited ROM prevents pt from returning to farm chores Senior Living Goal (LTG) Pt to improve AROM of left arm to 120? flexion and extension to ensure ability to perform farm chores when allowed per post-op protocol. LTG Duration 04/07/20 Two Impairment Pt unable to use left arm to wash hair Senior Living Goal (LTG) Pt to wash hair using left arm with no increase in symptoms within protocol guidelines LTG Duration 04/07/20 - Improving One Impairment Pt does not have an appropriate home exercise program Short Term Goal (STG) Pt to be independent and compliant with an appropriate HEP STG Duration 03/07/20 - Intermittent with HEP Assessment Summary Assessment Pt continues to do slightly better, improved parascapular tone, less tenderness to palpation today. Physical Therapy Plan Frequency and Duration Frequency of Treatment 2x/Week Duration of Treatment 10 weeks Plan of Care Start Date 02/05/20 Plan of Care End Date 04/15/20 Therapeutic Interventions Therapeutic Interventions Home Exercise Program,Joint Mobilizations,Manual Therapy, Patient/Caregiver Education, Self-Care/Home Management,Soft Tissue Mobilization, Therapeutic Activities, Therapeutic Exercises Modalities Cold Pack/Ice Massage,Electric Stimulation,Hot Packs, Ultrasound Next Visit Focus/Plan Next Note Type Treatment Note Next Visit Plan Increasing AROM, shoulder strengthening
--- NOTE | 2020-03-25 17:00 | PT.OTRE ---
Current Diagnoses Primary osteoarthritis, left shoulder (03/25/20) Pain in left shoulder (03/25/20) Stiffness of left shoulder, not elsewhere classified (03/25/20) Low back pain (03/25/20) Unspecified rotator cuff tear or rupture of left shoulder, not specified as traumatic (03/25/20) Laceration of muscle, fascia and tendon of long head of biceps, left arm, sequela (03/25/20) Past Medical History (Last Reviewed 09/30/19 @ 15:08 by Kwadwo Fitzgerald DO) Arthritis (Acute) Bleeding ulcer (Acute 2018) GERD (gastroesophageal reflux disease) (Acute) History of frequent headaches (Acute) History of transfusion (Acute 01/16/14) History of transfusion of packed red blood cells (Acute 01/16/14) HTN (hypertension) (Acute) Hx of radiation therapy (Acute) Left rib fracture (Acute 09/2017) Metastasizing leiomyoma of uterus (Acute) Port-A-Cath in place (Acute) Wears dentures (Acute) Wears glasses (Acute) Surgical History (Last Reviewed 09/30/19 @ 15:08 by Kwadwo Fitzgerald DO) History of colonoscopy with polypectomy (Acute 03/22/14) History of esophagogastroduodenoscopy (EGD) (Acute 05/22/18) History of esophagogastroduodenoscopy (EGD) (Acute 03/22/14) History of lung biopsy (Acute 06/2014) History of total hysterectomy with bilateral salpingo-oophorectomy (BSO) (Acute 01/2014) Hx of bilateral cataract extraction (Acute 02/15/15) Hx of dilation and curettage (Acute 01/16/14) Hx of shoulder surgery (Acute 2018) Status post dilation and curettage Visit Care Team Role Provider Type Fuad Burkett MD Primary Care Provider Physician Referring Provider Specialty: Internal Medicine Address: [address] [place] [address], [address] Email: [email or web address] Rory Lindsay MD Attending Provider Physician Specialty: Orthopedic Surgery Address: [address] [place] [address], [id number] Email: [email or web address] Physical Therapy Re-Evaluation PT-OP-A Visit Information Start: 06/15/19 15:45 Freq: Status: Active Protocol: Document 03/25/20 16:00 DCW (Rec: 03/25/20 16:59 DCW [id number]) Out-Patient Physical Therapy Visit Information Visit Information Visit Type Progress Note Visit Start Time 16:00 Visit Stop Time 16:45 Total Visit Minutes 45 Visit Number 24 Number of SHOTGUN SHELL REPRINTING UNIT OPERATOR Visits 0 Evaluation Information Evaluation Date 06/15/19 PT-OP-B Current Condition Start: 06/15/19 15:45 Freq: Status: Active Protocol: Document 03/25/20 16:00 DCW (Rec: 03/25/20 16:06 DCW [id number]) Current Condition History of Current Condition Onset Date 05/30/19 Current Complaints Left shoulder pain, movement restriction History of Current Condition Pt is a 73 year old female presenting 2.5 weeks s/p surgical repair of a left rotator cuff tear, A/C arthritis, and LH biceps tear. 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 Pt reports the most pain is caused my any standing/ twisting motions, which occurs frequently with all her house and barn work, which pt is not able to have anyone else help with. Pt reports pain level right now is 0/10, but reports it can go up to 10/10 at worst. Reports she just has to stop whatever she is doing and sit down, or may lose balance and fall over. Prior Treatments and Tests s/p ARCR, acromioplasty HIREN, anchor biceps tendon Prior Shoulder MRI: IMPRESSION: 1. Moderate acromioclavicular joint osteoarthritis and downsloping acromion depressing the musculotendinous junction of supraspinatus and infraspinatus. 2. Tendinosis and low to moderate grade articular and bursal surface partial- thickness tear involving distal supraspinatus and infraspinatus extending to musculotendinous junction. Mild supraspinatus muscle atrophy. 3. Tendinosis and low to moderate grade partial- thickness tear involving proximal intra-articular portion of long head biceps tendon. 4. No evidence of focal labral tear. Per Hernan Corona M.D. on 2018 PT-OP-C Subjective Start: 06/15/19 15:45 Freq: Status: Active Protocol: Document 03/25/20 16:00 DCW (Rec: 03/25/20 16:59 DCW [id number]) OP-PT Subjective Patient Comments Patient Comments New referral from PCP regarding low back pain. Pt would like it chacked out because it is severely limiting her participation in normal household activities. PT-OP-F Manual Assessment Start: 03/25/20 16:20 Freq: Status: Active Protocol: Document 03/25/20 16:00 DCW (Rec: 03/25/20 16:32 DCW [id number]) Manual Assessments Soft Tissue Assessment Soft Tissue Mobility Assessment Moderate-severe tone and tenderness to palpation 3/4 along thoraco/lumbar paraspinals, bilateral QL, B Piriformis, B Psoas. Joint Mobility Assessment Joint Mobility Assessment Hypomobility of lumbar vertebrae PT-OP-K Range of Motion Start: 06/15/19 15:45 Freq: Status: Active Protocol: Document 03/25/20 16:00 DCW (Rec: 03/25/20 16:19 DCW [id number]) Lumbar Spine Range of Motion Lumbar Spine Active Degrees Flexion 38 Extension 5 Comments L Lat Flex: fingers to knee joint line. R Lat Flex: fingers 5 cm superior to knee joint line. PT-OP-L Special Tests Start: 06/15/19 15:45 Freq: Status: Active Protocol: Document 03/25/20 16:00 DCW (Rec: 03/25/20 16:19 DCW [id number]) Special Tests Lumbar Spine Special Tests Manual Traction Test Results Negative Compression Test Results Negative A-P Shearing Test Results Negative Straight Leg Raise Test Results Negative Vertical Spine Loading Test Results Negative Slump Test Results Negative Hip Special Tests JESSICA Test Results Negative PT-OP-M Strength Start: 06/15/19 15:45 Freq: Status: Active Protocol: Document 02/05/20 15:15 DCW (Rec: 02/05/20 15:23 DCW [id number]) Shoulder Strength Shoulder Manual Muscle Testing Left Flexion 3- Fair- Abduction (C5) 3- Fair- External Rotation 4 Good Internal Rotation 4+ Good+ PT-OP-Q Treatments Start: 06/15/19 15:45 Freq: Status: Active Protocol: Document 03/25/20 16:00 DCW (Rec: 03/25/20 16:59 DCW [id number]) Manual Therapy Treatment Soft Tissue Mobilization Paraspinal Body Location B Lumbar Paraspinals Quadratus Lumborum Body Location B QL Mobilization Type Sustained Pressure,Trigger Point Release Manual Techniques Testing Comments Low back testing PT-OP-T Assessment and Plan Start: 06/15/19 15:45 Freq: Status: Active Protocol: Document 03/25/20 16:00 DCW (Rec: 03/25/20 16:59 DCW [id number]) Physical Therapy Assessment Impairments Impairments Functional Activities, Functional Mobility,Pain, Posture,ROM,Strength,Tone Goals Four Impairment Pt experiences low back pain after standing for 10 minutes Assisted Goal (LTG) Pt to stand for 30 minutes with no increased back pain to enable her to perform meal prep pain-free. LTG Duration 05/25/20 Three Impairment Limited ROM prevents pt from returning to farm chores Assisted Goal (LTG) Pt to improve AROM of left arm to 120? flexion and extension to ensure ability to perform farm chores when allowed per post-op protocol. LTG Duration 05/25/20 Two Impairment Pt unable to use left arm to wash hair Power Project Manager Goal (LTG) Pt to wash hair using left arm with no increase in symptoms within protocol guidelines LTG Duration 05/25/20 - Improving One Impairment Pt does not have an appropriate home exercise program Short Term Goal (STG) Pt to be independent and compliant with an appropriate HEP STG Duration 04/24/20 - Intermittent with HEP Assessment Summary Assessment Pt presents with signs and symptoms consistent with lumbar degenerative changes and possible lumbar stenosis. Pt should benefit from skilled therapy focusing on decreasing lumbar tone, improving vertebrae mobility, and increasing core strength. In addition, pt should likely still benefit from continued focus on bilateral shoulder pain following rotator cuff repair Physical Therapy Plan Frequency and Duration Frequency of Treatment 2x/Week Duration of Treatment 10 weeks Plan of Care Start Date 03/25/20 Plan of Care End Date 06/03/20 Therapeutic Interventions Therapeutic Interventions Home Exercise Program,Joint Mobilizations,Manual Therapy, Patient/Caregiver Education, Self-Care/Home Management,Soft Tissue Mobilization, Therapeutic Activities, Therapeutic Exercises Modalities Cold Pack/Ice Massage,Electric Stimulation,Hot Packs, Ultrasound Next Visit Focus/Plan Next Note Type Treatment Note Next Visit Plan Increasing AROM, shoulder strengthening
--- NOTE | 2020-03-25 17:00 | PT.OPPOC ---
Physical, Occupational & Speech Therapy At [facility] Current Diagnoses Primary osteoarthritis, left shoulder (03/25/20) Pain in left shoulder (03/25/20) Stiffness of left shoulder, not elsewhere classified (03/25/20) Low back pain (03/25/20) Unspecified rotator cuff tear or rupture of left shoulder, not specified as traumatic (03/25/20) Laceration of muscle, fascia and tendon of long head of biceps, left arm, sequela (03/25/20) Visit Care Team Role Provider Type Fuad Burkett MD Primary Care Provider Physician Referring Provider Specialty: Internal Medicine Address: [address] [place] [address], [address] Email: [email or web address] Rory Lindsay MD Attending Provider Physician Specialty: Orthopedic Surgery Address: [address] [place] [address], [id number] Email: [email or web address] Plan Of Care PT-OP-T Assessment and Plan Start: 06/15/19 15:45 Freq: Status: Active Protocol: Document 03/25/20 16:00 DCW (Rec: 03/25/20 16:59 DCW [id number]) Physical Therapy Assessment Impairments Impairments Functional Activities, Functional Mobility,Pain, Posture,ROM,Strength,Tone Goals Four Impairment Pt experiences low back pain after standing for 10 minutes Bricklayer Helper Goal (LTG) Pt to stand for 30 minutes with no increased back pain to enable her to perform meal prep pain-free. 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 flexion and extension to ensure ability to perform farm chores when allowed per post-op protocol. LTG Duration 05/25/20 Two Impairment Pt unable to use left arm to wash hair Fpc Goal (LTG) Pt to wash hair using left arm with no increase in symptoms within protocol guidelines LTG Duration 05/25/20 - Improving One Impairment Pt does not have an appropriate home exercise program Short Term Goal (STG) Pt to be independent and compliant with an appropriate HEP STG Duration 04/24/20 - Intermittent with HEP Assessment Summary Assessment Pt presents with signs and symptoms consistent with lumbar degenerative changes and possible lumbar stenosis. Pt should benefit from skilled therapy focusing on decreasing lumbar tone, improving vertebrae mobility, and increasing core strength. In addition, pt should likely still benefit from continued focus on bilateral shoulder pain following rotator cuff repair Physical Therapy Plan Frequency and Duration Frequency of Treatment 2x/Week Duration of Treatment 10 weeks Plan of Care Start Date 03/25/20 Plan of Care End Date 06/03/20 Therapeutic Interventions Therapeutic Interventions Home Exercise Program,Joint Mobilizations,Manual Therapy, Patient/Caregiver Education, Self-Care/Home Management,Soft Tissue Mobilization, Therapeutic Activities, Therapeutic Exercises Modalities Cold Pack/Ice Massage,Electric Stimulation,Hot Packs, Ultrasound Next Visit Focus/Plan Next Note Type Treatment Note Next Visit Plan Increasing AROM, shoulder strengthening Plan of Care Dates Plan of Care Start Date 03/25/20 Plan of Care End Date 06/03/20 Electronically Signed by: Bull Nelson, PT 03/25/20 1700 Please Sign and Return: I have reviewed this Plan of Care and certify that the skilled therapy services above are required to meet the patient?s needs. Physician Signature Date Printed Name and Credentials Clinical Instructor Signature Printed Name and Credentials
--- NOTE | 2020-03-28 17:37 | PT.OTN ---
Current Diagnoses Primary osteoarthritis, left shoulder (03/28/20) Pain in left shoulder (03/28/20) Stiffness of left shoulder, not elsewhere classified (03/28/20) Low back pain (03/28/20) Unspecified rotator cuff tear or rupture of left shoulder, not specified as traumatic (03/28/20) Laceration of muscle, fascia and tendon of long head of biceps, left arm, sequela (03/28/20) Physical Therapy Treatment Note PT-OP-A Visit Information Start: 06/15/19 15:45 Freq: Status: Active Protocol: Document 03/28/20 16:45 DCW (Rec: 03/28/20 17:37 DCW [id number]) Out-Patient Physical Therapy Visit Information Visit Information Visit Type Treatment Note Visit Start Time 16:45 Visit Stop Time 17:30 Total Visit Minutes 45 Visit Number 25 Number of DIRECTOR FUNERAL Visits 0 Evaluation Information Evaluation Date 06/15/19 PT-OP-B Current Condition Start: 06/15/19 15:45 Freq: Status: Active Protocol: Document 03/25/20 16:00 DCW (Rec: 03/25/20 16:06 DCW [id number]) Current Condition History of Current Condition Onset Date 05/30/19 Current Complaints Left shoulder pain, movement restriction History of Current Condition Pt is a 73 year old female presenting 2.5 weeks s/p surgical repair of a left rotator cuff tear, A/C arthritis, and LH biceps tear. 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 Pt reports the most pain is caused my any standing/ twisting motions, which occurs frequently with all her house and barn work, which pt is not able to have anyone else help with. Pt reports pain level right now is 0/10, but reports it can go up to 10/10 at worst. Reports she just has to stop whatever she is doing and sit down, or may lose balance and fall over. Prior Treatments and Tests s/p ARCR, acromioplasty HIREN, anchor biceps tendon Prior Shoulder MRI: IMPRESSION: 1. Moderate acromioclavicular joint osteoarthritis and downsloping acromion depressing the musculotendinous junction of supraspinatus and infraspinatus. 2. Tendinosis and low to moderate grade articular and bursal surface partial- thickness tear involving distal supraspinatus and infraspinatus extending to musculotendinous junction. Mild supraspinatus muscle atrophy. 3. Tendinosis and low to moderate grade partial- thickness tear involving proximal intra-articular portion of long head biceps tendon. 4. No evidence of focal labral tear. Per Hernan Corona M.D. on 2018 PT-OP-C Subjective Start: 06/15/19 15:45 Freq: Status: Active Protocol: Document 03/28/20 16:45 DCW (Rec: 03/28/20 17:37 DCW [id number]) OP-PT Subjective Patient Comments Patient Comments Pt reports a knot in her shoulder today. PT-OP-F Manual Assessment Start: 03/25/20 16:20 Freq: Status: Active Protocol: Document 03/25/20 16:00 DCW (Rec: 03/25/20 16:32 DCW [id number]) Manual Assessments Soft Tissue Assessment Soft Tissue Mobility Assessment Moderate-severe tone and tenderness to palpation 3/4 along thoraco/lumbar paraspinals, bilateral QL, B Piriformis, B Psoas. Joint Mobility Assessment Joint Mobility Assessment Hypomobility of lumbar vertebrae PT-OP-K Range of Motion Start: 06/15/19 15:45 Freq: Status: Active Protocol: Document 03/25/20 16:00 DCW (Rec: 03/25/20 16:19 DCW [id number]) Lumbar Spine Range of Motion Lumbar Spine Active Degrees Flexion 38 Extension 5 Comments L Lat Flex: fingers to knee joint line. R Lat Flex: fingers 5 cm superior to knee joint line. PT-OP-L Special Tests Start: 06/15/19 15:45 Freq: Status: Active Protocol: Document 03/25/20 16:00 DCW (Rec: 03/25/20 16:19 DCW [id number]) Special Tests Lumbar Spine Special Tests Manual Traction Test Results Negative Compression Test Results Negative A-P Shearing Test Results Negative Straight Leg Raise Test Results Negative Vertical Spine Loading Test Results Negative Slump Test Results Negative Hip Special Tests JESSICA Test Results Negative PT-OP-M Strength Start: 06/15/19 15:45 Freq: Status: Active Protocol: Document 02/05/20 15:15 DCW (Rec: 02/05/20 15:23 DCW [id number]) Shoulder Strength Shoulder Manual Muscle Testing Left Flexion 3- Fair- Abduction (C5) 3- Fair- External Rotation 4 Good Internal Rotation 4+ Good+ PT-OP-Q Treatments Start: 06/15/19 15:45 Freq: Status: Active Protocol: Document 03/28/20 16:45 DCW (Rec: 03/28/20 17:37 DCW [id number]) Manual Therapy Treatment Soft Tissue Mobilization Paraspinal Body Location B Lumbar Paraspinals Quadratus Lumborum Body Location B QL Mobilization Type Sustained Pressure,Trigger Point Release Rhomboids Body Location B Rhomboids Mobilization Type Strumming,Sustained Pressure, Trigger Point Release Parascapulars Body Location B Infraspinatus Mobilization Type Sustained Pressure PT-OP-T Assessment and Plan Start: 06/15/19 15:45 Freq: Status: Active Protocol: Document 03/28/20 16:45 DCW (Rec: 03/28/20 17:37 DCW [id number]) Physical Therapy Assessment Impairments Impairments Functional Activities, Functional Mobility,Pain, Posture,ROM,Strength,Tone Goals Four Impairment Pt experiences low back pain after standing for 10 minutes Deck Engine Operator Goal (LTG) Pt to stand for 30 minutes with no increased back pain to enable her to perform meal prep pain-free. 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 flexion and extension to ensure ability to perform farm chores when allowed per post-op protocol. LTG Duration 05/25/20 Two Impairment Pt unable to use left arm to wash hair Deck Engine Operator Goal (LTG) Pt to wash hair using left arm with no increase in symptoms within protocol guidelines LTG Duration 05/25/20 - Improving One Impairment Pt does not have an appropriate home exercise program Short Term Goal (STG) Pt to be independent and compliant with an appropriate HEP STG Duration 04/24/20 - Intermittent with HEP Assessment Summary Assessment Pt tolerated STM/Manual therapy well today, had less pain in sidelying than sitting , able to tolerate paraspinal STM. Physical Therapy Plan Frequency and Duration Frequency of Treatment 2x/Week Duration of Treatment 10 weeks Plan of Care Start Date 03/25/20 Plan of Care End Date 06/03/20 Therapeutic Interventions Therapeutic Interventions Home Exercise Program,Joint Mobilizations,Manual Therapy, Patient/Caregiver Education, Self-Care/Home Management,Soft Tissue Mobilization, Therapeutic Activities, Therapeutic Exercises Modalities Cold Pack/Ice Massage,Electric Stimulation,Hot Packs, Ultrasound Next Visit Focus/Plan Next Note Type Treatment Note Next Visit Plan Increasing AROM, shoulder strengthening
--- NOTE | 2020-03-30 17:30 | PT.OTN ---
Current Diagnoses Primary osteoarthritis, left shoulder (03/30/20) Pain in left shoulder (03/30/20) Stiffness of left shoulder, not elsewhere classified (03/30/20) Low back pain (03/30/20) Unspecified rotator cuff tear or rupture of left shoulder, not specified as traumatic (03/30/20) Laceration of muscle, fascia and tendon of long head of biceps, left arm, sequela (03/30/20) Physical Therapy Treatment Note PT-OP-A Visit Information Start: 06/15/19 15:45 Freq: Status: Active Protocol: Document 03/30/20 16:45 DCW (Rec: 03/30/20 17:30 DCW [id number]) Out-Patient Physical Therapy Visit Information Visit Information Visit Type Treatment Note Visit Start Time 16:45 Visit Stop Time 17:30 Total Visit Minutes 45 Visit Number 26 Number of PRODUCE DEPARTMENT SUPERVISOR Visits 0 Evaluation Information Evaluation Date 06/15/19 PT-OP-B Current Condition Start: 06/15/19 15:45 Freq: Status: Active Protocol: Document 03/25/20 16:00 DCW (Rec: 03/25/20 16:06 DCW [id number]) Current Condition History of Current Condition Onset Date 05/30/19 Current Complaints Left shoulder pain, movement restriction History of Current Condition Pt is a 73 year old female presenting 2.5 weeks s/p surgical repair of a left rotator cuff tear, A/C arthritis, and LH biceps tear. 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 Pt reports the most pain is caused my any standing/ twisting motions, which occurs frequently with all her house and barn work, which pt is not able to have anyone else help with. Pt reports pain level right now is 0/10, but reports it can go up to 10/10 at worst. Reports she just has to stop whatever she is doing and sit down, or may lose balance and fall over. Prior Treatments and Tests s/p ARCR, acromioplasty HIREN, anchor biceps tendon Prior Shoulder MRI: IMPRESSION: 1. Moderate acromioclavicular joint osteoarthritis and downsloping acromion depressing the musculotendinous junction of supraspinatus and infraspinatus. 2. Tendinosis and low to moderate grade articular and bursal surface partial- thickness tear involving distal supraspinatus and infraspinatus extending to musculotendinous junction. Mild supraspinatus muscle atrophy. 3. Tendinosis and low to moderate grade partial- thickness tear involving proximal intra-articular portion of long head biceps tendon. 4. No evidence of focal labral tear. Per Hernan Corona M.D. on 2018 PT-OP-C Subjective Start: 06/15/19 15:45 Freq: Status: Active Protocol: Document 03/30/20 16:45 DCW (Rec: 03/30/20 17:30 DCW [id number]) OP-PT Subjective Patient Comments Patient Comments Pt was having a lot of increased left shoulder pain last night after moving a bale of hay. PT-OP-F Manual Assessment Start: 03/25/20 16:20 Freq: Status: Active Protocol: Document 03/25/20 16:00 DCW (Rec: 03/25/20 16:32 DCW [id number]) Manual Assessments Soft Tissue Assessment Soft Tissue Mobility Assessment Moderate-severe tone and tenderness to palpation 3/4 along thoraco/lumbar paraspinals, bilateral QL, B Piriformis, B Psoas. Joint Mobility Assessment Joint Mobility Assessment Hypomobility of lumbar vertebrae PT-OP-K Range of Motion Start: 06/15/19 15:45 Freq: Status: Active Protocol: Document 03/25/20 16:00 DCW (Rec: 03/25/20 16:19 DCW [id number]) Lumbar Spine Range of Motion Lumbar Spine Active Degrees Flexion 38 Extension 5 Comments L Lat Flex: fingers to knee joint line. R Lat Flex: fingers 5 cm superior to knee joint line. PT-OP-L Special Tests Start: 06/15/19 15:45 Freq: Status: Active Protocol: Document 03/25/20 16:00 DCW (Rec: 03/25/20 16:19 DCW [id number]) Special Tests Lumbar Spine Special Tests Manual Traction Test Results Negative Compression Test Results Negative A-P Shearing Test Results Negative Straight Leg Raise Test Results Negative Vertical Spine Loading Test Results Negative Slump Test Results Negative Hip Special Tests JESSICA Test Results Negative PT-OP-M Strength Start: 06/15/19 15:45 Freq: Status: Active Protocol: Document 02/05/20 15:15 DCW (Rec: 02/05/20 15:23 DCW [id number]) Shoulder Strength Shoulder Manual Muscle Testing Left Flexion 3- Fair- Abduction (C5) 3- Fair- External Rotation 4 Good Internal Rotation 4+ Good+ PT-OP-Q Treatments Start: 06/15/19 15:45 Freq: Status: Active Protocol: Document 03/30/20 16:45 DCW (Rec: 03/30/20 17:30 DCW [id number]) Manual Therapy Treatment Soft Tissue Mobilization Paraspinal Body Location B Lumbar Paraspinals Quadratus Lumborum Body Location B QL Mobilization Type Sustained Pressure,Trigger Point Release Rhomboids Body Location B Rhomboids Mobilization Type Strumming,Sustained Pressure, Trigger Point Release Parascapulars Body Location B Infraspinatus Mobilization Type Sustained Pressure PT-OP-T Assessment and Plan Start: 06/15/19 15:45 Freq: Status: Active Protocol: Document 03/30/20 16:45 DCW (Rec: 03/30/20 17:30 DCW [id number]) Physical Therapy Assessment Impairments Impairments Functional Activities, Functional Mobility,Pain, Posture,ROM,Strength,Tone Goals Four Impairment Pt experiences low back pain after standing for 10 minutes Supervisor Cartography Goal (LTG) Pt to stand for 30 minutes with no increased back pain to enable her to perform meal prep pain-free. 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 flexion and extension to ensure ability to perform farm chores when allowed per post-op protocol. LTG Duration 05/25/20 Two Impairment Pt unable to use left arm to wash hair Supervisor Cartography Goal (LTG) Pt to wash hair using left arm with no increase in symptoms within protocol guidelines LTG Duration 05/25/20 - Improving One Impairment Pt does not have an appropriate home exercise program Short Term Goal (STG) Pt to be independent and compliant with an appropriate HEP STG Duration 04/24/20 - Intermittent with HEP Assessment Summary Assessment Pt showing slight improvement, less tenderness to palpation, showing somewhat improved shoulder ROM. Physical Therapy Plan Frequency and Duration Frequency of Treatment 2x/Week Duration of Treatment 10 weeks Plan of Care Start Date 03/25/20 Plan of Care End Date 06/03/20 Therapeutic Interventions Therapeutic Interventions Home Exercise Program,Joint Mobilizations,Manual Therapy, Patient/Caregiver Education, Self-Care/Home Management,Soft Tissue Mobilization, Therapeutic Activities, Therapeutic Exercises Modalities Cold Pack/Ice Massage,Electric Stimulation,Hot Packs, Ultrasound Next Visit Focus/Plan Next Note Type Treatment Note Next Visit Plan Increasing AROM, shoulder strengthening
--- NOTE | 2020-04-04 17:31 | PT.OTN ---
Current Diagnoses Primary osteoarthritis, left shoulder (04/04/20) Pain in left shoulder (04/04/20) Stiffness of left shoulder, not elsewhere classified (04/04/20) Low back pain (04/04/20) Unspecified rotator cuff tear or rupture of left shoulder, not specified as traumatic (04/04/20) Laceration of muscle, fascia and tendon of long head of biceps, left arm, sequela (04/04/20) Physical Therapy Treatment Note PT-OP-A Visit Information Start: 06/15/19 15:45 Freq: Status: Active Protocol: Document 04/04/20 16:45 DCW (Rec: 04/04/20 17:31 DCW [id number]) Out-Patient Physical Therapy Visit Information Visit Information Visit Type Treatment Note Visit Start Time 16:45 Visit Stop Time 17:30 Total Visit Minutes 45 Visit Number 27 Number of LEAD CASTER HELPER Visits 0 Evaluation Information Evaluation Date 06/15/19 PT-OP-B Current Condition Start: 06/15/19 15:45 Freq: Status: Active Protocol: Document 03/25/20 16:00 DCW (Rec: 03/25/20 16:06 DCW [id number]) Current Condition History of Current Condition Onset Date 05/30/19 Current Complaints Left shoulder pain, movement restriction History of Current Condition Pt is a 73 year old female presenting 2.5 weeks s/p surgical repair of a left rotator cuff tear, A/C arthritis, and LH biceps tear. 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 Pt reports the most pain is caused my any standing/ twisting motions, which occurs frequently with all her house and barn work, which pt is not able to have anyone else help with. Pt reports pain level right now is 0/10, but reports it can go up to 10/10 at worst. Reports she just has to stop whatever she is doing and sit down, or may lose balance and fall over. Prior Treatments and Tests s/p ARCR, acromioplasty HIREN, anchor biceps tendon Prior Shoulder MRI: IMPRESSION: 1. Moderate acromioclavicular joint osteoarthritis and downsloping acromion depressing the musculotendinous junction of supraspinatus and infraspinatus. 2. Tendinosis and low to moderate grade articular and bursal surface partial- thickness tear involving distal supraspinatus and infraspinatus extending to musculotendinous junction. Mild supraspinatus muscle atrophy. 3. Tendinosis and low to moderate grade partial- thickness tear involving proximal intra-articular portion of long head biceps tendon. 4. No evidence of focal labral tear. Per Hernan Corona M.D. on 2018 PT-OP-C Subjective Start: 06/15/19 15:45 Freq: Status: Active Protocol: Document 04/04/20 16:45 DCW (Rec: 04/04/20 17:31 DCW [id number]) OP-PT Subjective Patient Comments Patient Comments Pt reports she had a quiet, uneventful weekend, but upon pressing, son admits that her shoulder has been bothering her. PT-OP-F Manual Assessment Start: 03/25/20 16:20 Freq: Status: Active Protocol: Document 03/25/20 16:00 DCW (Rec: 03/25/20 16:32 DCW [id number]) Manual Assessments Soft Tissue Assessment Soft Tissue Mobility Assessment Moderate-severe tone and tenderness to palpation 3/4 along thoraco/lumbar paraspinals, bilateral QL, B Piriformis, B Psoas. Joint Mobility Assessment Joint Mobility Assessment Hypomobility of lumbar vertebrae PT-OP-K Range of Motion Start: 06/15/19 15:45 Freq: Status: Active Protocol: Document 03/25/20 16:00 DCW (Rec: 03/25/20 16:19 DCW [id number]) Lumbar Spine Range of Motion Lumbar Spine Active Degrees Flexion 38 Extension 5 Comments L Lat Flex: fingers to knee joint line. R Lat Flex: fingers 5 cm superior to knee joint line. PT-OP-L Special Tests Start: 06/15/19 15:45 Freq: Status: Active Protocol: Document 03/25/20 16:00 DCW (Rec: 03/25/20 16:19 DCW [id number]) Special Tests Lumbar Spine Special Tests Manual Traction Test Results Negative Compression Test Results Negative A-P Shearing Test Results Negative Straight Leg Raise Test Results Negative Vertical Spine Loading Test Results Negative Slump Test Results Negative Hip Special Tests JESSICA Test Results Negative PT-OP-M Strength Start: 06/15/19 15:45 Freq: Status: Active Protocol: Document 02/05/20 15:15 DCW (Rec: 02/05/20 15:23 DCW [id number]) Shoulder Strength Shoulder Manual Muscle Testing Left Flexion 3- Fair- Abduction (C5) 3- Fair- External Rotation 4 Good Internal Rotation 4+ Good+ PT-OP-Q Treatments Start: 06/15/19 15:45 Freq: Status: Active Protocol: Document 04/04/20 16:45 DCW (Rec: 04/04/20 17:31 DCW [id number]) Therapeutic Exercises Standing Exercises Shoulder Press Standing Exercise Name Shoulder Press Side bilateral Resistance 5# Equipment Used PVC Flexion Standing Exercise Name Shoulder flexion Side bilateral Resistance 5# Equipment Used PVC External Rotation Standing Exercise Name ER Side bilateral Resistance Lv 2 Equipment Used T-band Scapular pro/retraction Standing Exercise Name Scapular retraction Manual Therapy Treatment Soft Tissue Mobilization Paraspinal Body Location B Lumbar Paraspinals Quadratus Lumborum Body Location B QL Mobilization Type Sustained Pressure,Trigger Point Release Rhomboids Body Location B Rhomboids Mobilization Type Strumming,Sustained Pressure, Trigger Point Release Parascapulars Body Location B Infraspinatus Mobilization Type Sustained Pressure PT-OP-T Assessment and Plan Start: 06/15/19 15:45 Freq: Status: Active Protocol: Document 04/04/20 16:45 DCW (Rec: 04/04/20 17:31 DCW [id number]) Physical Therapy Assessment Impairments Impairments Functional Activities, Functional Mobility,Pain, Posture,ROM,Strength,Tone Goals Four Impairment Pt experiences low back pain after standing for 10 minutes Music Historian Goal (LTG) Pt to stand for 30 minutes with no increased back pain to enable her to perform meal prep pain-free. 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 flexion and extension to ensure ability to perform farm chores when allowed per post-op protocol. LTG Duration 05/25/20 Two Impairment Pt unable to use left arm to wash hair Music Historian Goal (LTG) Pt to wash hair using left arm with no increase in symptoms within protocol guidelines LTG Duration 05/25/20 - Improving One Impairment Pt does not have an appropriate home exercise program Short Term Goal (STG) Pt to be independent and compliant with an appropriate HEP STG Duration 04/24/20 - Intermittent with HEP Assessment Summary Assessment Pt sis fairly well overall, tolerated shoulder strengthening today, less tone in parascapular region. Physical Therapy Plan Frequency and Duration Frequency of Treatment 2x/Week Duration of Treatment 10 weeks Plan of Care Start Date 03/25/20 Plan of Care End Date 06/03/20 Therapeutic Interventions Therapeutic Interventions Home Exercise Program,Joint Mobilizations,Manual Therapy, Patient/Caregiver Education, Self-Care/Home Management,Soft Tissue Mobilization, Therapeutic Activities, Therapeutic Exercises Modalities Cold Pack/Ice Massage,Electric Stimulation,Hot Packs, Ultrasound Next Visit Focus/Plan Next Note Type Treatment Note Next Visit Plan Increasing AROM, shoulder strengthening
--- NOTE | 2020-04-06 17:40 | PT.OTN ---
Current Diagnoses Primary osteoarthritis, left shoulder (04/06/20) Pain in left shoulder (04/06/20) Stiffness of left shoulder, not elsewhere classified (04/06/20) Low back pain (04/06/20) Unspecified rotator cuff tear or rupture of left shoulder, not specified as traumatic (04/06/20) Laceration of muscle, fascia and tendon of long head of biceps, left arm, sequela (04/06/20) Physical Therapy Treatment Note PT-OP-A Visit Information Start: 06/15/19 15:45 Freq: Status: Active Protocol: Document 04/06/20 16:45 DCW (Rec: 04/06/20 17:40 DCW [id number]) Out-Patient Physical Therapy Visit Information Visit Information Visit Type Treatment Note Visit Start Time 16:45 Visit Stop Time 17:30 Total Visit Minutes 45 Visit Number 28 Number of DIRECTOR WHOLESALE Visits 0 Evaluation Information Evaluation Date 06/15/19 PT-OP-B Current Condition Start: 06/15/19 15:45 Freq: Status: Active Protocol: Document 03/25/20 16:00 DCW (Rec: 03/25/20 16:06 DCW [id number]) Current Condition History of Current Condition Onset Date 05/30/19 Current Complaints Left shoulder pain, movement restriction History of Current Condition Pt is a 73 year old female presenting 2.5 weeks s/p surgical repair of a left rotator cuff tear, A/C arthritis, and LH biceps tear. 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 Pt reports the most pain is caused my any standing/ twisting motions, which occurs frequently with all her house and barn work, which pt is not able to have anyone else help with. Pt reports pain level right now is 0/10, but reports it can go up to 10/10 at worst. Reports she just has to stop whatever she is doing and sit down, or may lose balance and fall over. Prior Treatments and Tests s/p ARCR, acromioplasty HIREN, anchor biceps tendon Prior Shoulder MRI: IMPRESSION: 1. Moderate acromioclavicular joint osteoarthritis and downsloping acromion depressing the musculotendinous junction of supraspinatus and infraspinatus. 2. Tendinosis and low to moderate grade articular and bursal surface partial- thickness tear involving distal supraspinatus and infraspinatus extending to musculotendinous junction. Mild supraspinatus muscle atrophy. 3. Tendinosis and low to moderate grade partial- thickness tear involving proximal intra-articular portion of long head biceps tendon. 4. No evidence of focal labral tear. Per Hernan Corona M.D. on 2018 PT-OP-C Subjective Start: 06/15/19 15:45 Freq: Status: Active Protocol: Document 04/06/20 16:45 DCW (Rec: 04/06/20 17:40 DCW [id number]) OP-PT Subjective Patient Comments Patient Comments Pt reports her butt hurts and I'm tired of upstairs ([facility]). Pt's son reports she finally admitted PT seems to be helping. PT-OP-F Manual Assessment Start: 03/25/20 16:20 Freq: Status: Active Protocol: Document 03/25/20 16:00 DCW (Rec: 03/25/20 16:32 DCW [id number]) Manual Assessments Soft Tissue Assessment Soft Tissue Mobility Assessment Moderate-severe tone and tenderness to palpation 3/4 along thoraco/lumbar paraspinals, bilateral QL, B Piriformis, B Psoas. Joint Mobility Assessment Joint Mobility Assessment Hypomobility of lumbar vertebrae PT-OP-K Range of Motion Start: 06/15/19 15:45 Freq: Status: Active Protocol: Document 03/25/20 16:00 DCW (Rec: 03/25/20 16:19 DCW [id number]) Lumbar Spine Range of Motion Lumbar Spine Active Degrees Flexion 38 Extension 5 Comments L Lat Flex: fingers to knee joint line. R Lat Flex: fingers 5 cm superior to knee joint line. PT-OP-L Special Tests Start: 06/15/19 15:45 Freq: Status: Active Protocol: Document 03/25/20 16:00 DCW (Rec: 03/25/20 16:19 DCW [id number]) Special Tests Lumbar Spine Special Tests Manual Traction Test Results Negative Compression Test Results Negative A-P Shearing Test Results Negative Straight Leg Raise Test Results Negative Vertical Spine Loading Test Results Negative Slump Test Results Negative Hip Special Tests JESSICA Test Results Negative PT-OP-M Strength Start: 06/15/19 15:45 Freq: Status: Active Protocol: Document 02/05/20 15:15 DCW (Rec: 02/05/20 15:23 DCW [id number]) Shoulder Strength Shoulder Manual Muscle Testing Left Flexion 3- Fair- Abduction (C5) 3- Fair- External Rotation 4 Good Internal Rotation 4+ Good+ PT-OP-Q Treatments Start: 06/15/19 15:45 Freq: Status: Active Protocol: Document 04/06/20 16:45 DCW (Rec: 04/06/20 17:40 DCW [id number]) Manual Therapy Treatment Soft Tissue Mobilization Paraspinal Body Location B Lumbar Paraspinals Quadratus Lumborum Body Location B QL Mobilization Type Sustained Pressure,Trigger Point Release Rhomboids Body Location B Rhomboids Mobilization Type Strumming,Sustained Pressure, Trigger Point Release Parascapulars Body Location B Infraspinatus Mobilization Type Sustained Pressure PT-OP-T Assessment and Plan Start: 06/15/19 15:45 Freq: Status: Active Protocol: Document 04/06/20 16:45 DCW (Rec: 04/06/20 17:40 DCW [id number]) Physical Therapy Assessment Impairments Impairments Functional Activities, Functional Mobility,Pain, Posture,ROM,Strength,Tone Goals Four Impairment Pt experiences low back pain after standing for 10 minutes Body Welder Goal (LTG) Pt to stand for 30 minutes with no increased back pain to enable her to perform meal prep pain-free. 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 flexion and extension to ensure ability to perform farm chores when allowed per post-op protocol. LTG Duration 05/25/20 Two Impairment Pt unable to use left arm to wash hair Body Welder Goal (LTG) Pt to wash hair using left arm with no increase in symptoms within protocol guidelines LTG Duration 05/25/20 - Improving One Impairment Pt does not have an appropriate home exercise program Short Term Goal (STG) Pt to be independent and compliant with an appropriate HEP STG Duration 04/24/20 - Intermittent with HEP Assessment Summary Assessment Pt demonstrating decreased tone in parascapular musculature, still c/o pain in shoulders and back, especially with farm work. Physical Therapy Plan Frequency and Duration Frequency of Treatment 2x/Week Duration of Treatment 10 weeks Plan of Care Start Date 03/25/20 Plan of Care End Date 06/03/20 Therapeutic Interventions Therapeutic Interventions Home Exercise Program,Joint Mobilizations,Manual Therapy, Patient/Caregiver Education, Self-Care/Home Management,Soft Tissue Mobilization, Therapeutic Activities, Therapeutic Exercises Modalities Cold Pack/Ice Massage,Electric Stimulation,Hot Packs, Ultrasound Next Visit Focus/Plan Next Note Type Treatment Note Next Visit Plan Increasing AROM, shoulder strengthening
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
--- NOTE | 2020-05-20 15:57 | PT.OTN ---
Current Diagnoses Primary osteoarthritis, left shoulder (05/20/20) Pain in left shoulder (05/20/20) Stiffness of left shoulder, not elsewhere classified (05/20/20) Low back pain (05/20/20) Unspecified rotator cuff tear or rupture of left shoulder, not specified as traumatic (05/20/20) Laceration of muscle, fascia and tendon of long head of biceps, left arm, sequela (05/20/20) Physical Therapy Treatment Note PT-OP-A Visit Information Start: 06/15/19 15:45 Freq: Status: Active Protocol: Document 05/20/20 15:15 DCW (Rec: 05/20/20 15:57 DCW [id number]) Out-Patient Physical Therapy Visit Information Visit Information Visit Type Treatment Note Visit Start Time 15:15 Visit Stop Time 16:00 Total Visit Minutes 45 Visit Number 31 Number of BACKUP ADMINISTRATIVE COORDINATOR Visits 0 Evaluation Information Evaluation Date 06/15/19 PT-OP-B Current Condition Start: 06/15/19 15:45 Freq: Status: Active Protocol: Document 03/25/20 16:00 DCW (Rec: 03/25/20 16:06 DCW [id number]) Current Condition History of Current Condition Onset Date 05/30/19 Current Complaints Left shoulder pain, movement restriction History of Current Condition Pt is a 73 year old female presenting 2.5 weeks s/p surgical repair of a left rotator cuff tear, A/C arthritis, and LH biceps tear. 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 Pt reports the most pain is caused my any standing/ twisting motions, which occurs frequently with all her house and barn work, which pt is not able to have anyone else help with. Pt reports pain level right now is 0/10, but reports it can go up to 10/10 at worst. Reports she just has to stop whatever she is doing and sit down, or may lose balance and fall over. Prior Treatments and Tests s/p ARCR, acromioplasty HIREN, anchor biceps tendon Prior Shoulder MRI: IMPRESSION: 1. Moderate acromioclavicular joint osteoarthritis and downsloping acromion depressing the musculotendinous junction of supraspinatus and infraspinatus. 2. Tendinosis and low to moderate grade articular and bursal surface partial- thickness tear involving distal supraspinatus and infraspinatus extending to musculotendinous junction. Mild supraspinatus muscle atrophy. 3. Tendinosis and low to moderate grade partial- thickness tear involving proximal intra-articular portion of long head biceps tendon. 4. No evidence of focal labral tear. Per Hernan Corona M.D. on 2018 PT-OP-C Subjective Start: 06/15/19 15:45 Freq: Status: Active Protocol: Document 05/20/20 15:15 DCW (Rec: 05/20/20 15:57 DCW [id number]) OP-PT Subjective Patient Comments Patient Comments Pt notes that she is sore today and moving slowly. PT-OP-F Manual Assessment Start: 03/25/20 16:20 Freq: Status: Active Protocol: Document 03/25/20 16:00 DCW (Rec: 03/25/20 16:32 DCW [id number]) Manual Assessments Soft Tissue Assessment Soft Tissue Mobility Assessment Moderate-severe tone and tenderness to palpation 3/4 along thoraco/lumbar paraspinals, bilateral QL, B Piriformis, B Psoas. Joint Mobility Assessment Joint Mobility Assessment Hypomobility of lumbar vertebrae PT-OP-K Range of Motion Start: 06/15/19 15:45 Freq: Status: Active Protocol: Document 03/25/20 16:00 DCW (Rec: 03/25/20 16:19 DCW [id number]) Lumbar Spine Range of Motion Lumbar Spine Active Degrees Flexion 38 Extension 5 Comments L Lat Flex: fingers to knee joint line. R Lat Flex: fingers 5 cm superior to knee joint line. PT-OP-L Special Tests Start: 06/15/19 15:45 Freq: Status: Active Protocol: Document 03/25/20 16:00 DCW (Rec: 03/25/20 16:19 DCW [id number]) Special Tests Lumbar Spine Special Tests Manual Traction Test Results Negative Compression Test Results Negative A-P Shearing Test Results Negative Straight Leg Raise Test Results Negative Vertical Spine Loading Test Results Negative Slump Test Results Negative Hip Special Tests JESSICA Test Results Negative PT-OP-M Strength Start: 06/15/19 15:45 Freq: Status: Active Protocol: Document 02/05/20 15:15 DCW (Rec: 02/05/20 15:23 DCW [id number]) Shoulder Strength Shoulder Manual Muscle Testing Left Flexion 3- Fair- Abduction (C5) 3- Fair- External Rotation 4 Good Internal Rotation 4+ Good+ PT-OP-Q Treatments Start: 06/15/19 15:45 Freq: Status: Active Protocol: Document 05/20/20 15:15 DCW (Rec: 05/20/20 15:57 DCW [id number]) Manual Therapy Treatment Soft Tissue Mobilization Paraspinal Body Location B Lumbar Paraspinals Quadratus Lumborum Body Location B QL Mobilization Type Sustained Pressure,Trigger Point Release Rhomboids Body Location B Rhomboids Mobilization Type Strumming,Sustained Pressure, Trigger Point Release Parascapulars Body Location B Infraspinatus Mobilization Type Sustained Pressure PT-OP-T Assessment and Plan Start: 06/15/19 15:45 Freq: Status: Active Protocol: Document 05/20/20 15:15 DCW (Rec: 05/20/20 15:57 DCW [id number]) Physical Therapy Assessment Impairments Impairments Functional Activities, Functional Mobility,Pain, Posture,ROM,Strength,Tone Goals Four Impairment Pt experiences low back pain after standing for 10 minutes Care Home Goal (LTG) Pt to stand for 30 minutes with no increased back pain to enable her to perform meal prep pain-free. 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 flexion and extension to ensure ability to perform farm chores when allowed per post-op protocol. LTG Duration 05/25/20 Two Impairment Pt unable to use left arm to wash hair Spray Cementer Goal (LTG) Pt to wash hair using left arm with no increase in symptoms within protocol guidelines LTG Duration 05/25/20 - Improving One Impairment Pt does not have an appropriate home exercise program Short Term Goal (STG) Pt to be independent and compliant with an appropriate HEP STG Duration 04/24/20 - Intermittent with HEP Assessment Summary Assessment Pt doing better today, decreased tone throughout shoulders and low back, pt reporting less pain with STM. Physical Therapy Plan Frequency and Duration Frequency of Treatment 2x/Week Duration of Treatment 10 weeks Plan of Care Start Date 03/25/20 Plan of Care End Date 06/03/20 Therapeutic Interventions Therapeutic Interventions Home Exercise Program,Joint Mobilizations,Manual Therapy, Patient/Caregiver Education, Self-Care/Home Management,Soft Tissue Mobilization, Therapeutic Activities, Therapeutic Exercises Modalities Cold Pack/Ice Massage,Electric Stimulation,Hot Packs, Ultrasound Next Visit Focus/Plan Next Note Type Treatment Note Next Visit Plan Increasing AROM, shoulder strengthening
--- NOTE | 2020-05-23 16:43 | PT.OTN ---
Current Diagnoses Primary osteoarthritis, left shoulder (05/23/20) Pain in left shoulder (05/23/20) Stiffness of left shoulder, not elsewhere classified (05/23/20) Low back pain (05/23/20) Unspecified rotator cuff tear or rupture of left shoulder, not specified as traumatic (05/23/20) Laceration of muscle, fascia and tendon of long head of biceps, left arm, sequela (05/23/20) Physical Therapy Treatment Note PT-OP-A Visit Information Start: 06/15/19 15:45 Freq: Status: Active Protocol: Document 05/23/20 16:00 DCW (Rec: 05/23/20 16:43 DCW [id number]) Out-Patient Physical Therapy Visit Information Visit Information Visit Type Treatment Note Visit Start Time 16:00 Visit Stop Time 16:45 Total Visit Minutes 45 Visit Number 32 Number of HOUSEMAID Visits 0 Evaluation Information Evaluation Date 06/15/19 PT-OP-B Current Condition Start: 06/15/19 15:45 Freq: Status: Active Protocol: Document 03/25/20 16:00 DCW (Rec: 03/25/20 16:06 DCW [id number]) Current Condition History of Current Condition Onset Date 05/30/19 Current Complaints Left shoulder pain, movement restriction History of Current Condition Pt is a 73 year old female presenting 2.5 weeks s/p surgical repair of a left rotator cuff tear, A/C arthritis, and LH biceps tear. 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 Pt reports the most pain is caused my any standing/ twisting motions, which occurs frequently with all her house and barn work, which pt is not able to have anyone else help with. Pt reports pain level right now is 0/10, but reports it can go up to 10/10 at worst. Reports she just has to stop whatever she is doing and sit down, or may lose balance and fall over. Prior Treatments and Tests s/p ARCR, acromioplasty HIREN, anchor biceps tendon Prior Shoulder MRI: IMPRESSION: 1. Moderate acromioclavicular joint osteoarthritis and downsloping acromion depressing the musculotendinous junction of supraspinatus and infraspinatus. 2. Tendinosis and low to moderate grade articular and bursal surface partial- thickness tear involving distal supraspinatus and infraspinatus extending to musculotendinous junction. Mild supraspinatus muscle atrophy. 3. Tendinosis and low to moderate grade partial- thickness tear involving proximal intra-articular portion of long head biceps tendon. 4. No evidence of focal labral tear. Per Hernan Corona M.D. on 2018 PT-OP-C Subjective Start: 06/15/19 15:45 Freq: Status: Active Protocol: Document 05/23/20 16:00 DCW (Rec: 05/23/20 16:43 DCW [id number]) OP-PT Subjective Patient Comments Patient Comments Don't even ask. It's just that kind of day. PT-OP-F Manual Assessment Start: 03/25/20 16:20 Freq: Status: Active Protocol: Document 03/25/20 16:00 DCW (Rec: 03/25/20 16:32 DCW [id number]) Manual Assessments Soft Tissue Assessment Soft Tissue Mobility Assessment Moderate-severe tone and tenderness to palpation 3/4 along thoraco/lumbar paraspinals, bilateral QL, B Piriformis, B Psoas. Joint Mobility Assessment Joint Mobility Assessment Hypomobility of lumbar vertebrae PT-OP-K Range of Motion Start: 06/15/19 15:45 Freq: Status: Active Protocol: Document 03/25/20 16:00 DCW (Rec: 03/25/20 16:19 DCW [id number]) Lumbar Spine Range of Motion Lumbar Spine Active Degrees Flexion 38 Extension 5 Comments L Lat Flex: fingers to knee joint line. R Lat Flex: fingers 5 cm superior to knee joint line. PT-OP-L Special Tests Start: 06/15/19 15:45 Freq: Status: Active Protocol: Document 03/25/20 16:00 DCW (Rec: 03/25/20 16:19 DCW [id number]) Special Tests Lumbar Spine Special Tests Manual Traction Test Results Negative Compression Test Results Negative A-P Shearing Test Results Negative Straight Leg Raise Test Results Negative Vertical Spine Loading Test Results Negative Slump Test Results Negative Hip Special Tests JESSICA Test Results Negative PT-OP-M Strength Start: 06/15/19 15:45 Freq: Status: Active Protocol: Document 02/05/20 15:15 DCW (Rec: 02/05/20 15:23 DCW [id number]) Shoulder Strength Shoulder Manual Muscle Testing Left Flexion 3- Fair- Abduction (C5) 3- Fair- External Rotation 4 Good Internal Rotation 4+ Good+ PT-OP-Q Treatments Start: 06/15/19 15:45 Freq: Status: Active Protocol: Document 05/23/20 16:00 DCW (Rec: 05/23/20 16:43 DCW [id number]) Manual Therapy Treatment Soft Tissue Mobilization Paraspinal Body Location B Lumbar Paraspinals Quadratus Lumborum Body Location B QL Mobilization Type Sustained Pressure,Trigger Point Release Rhomboids Body Location B Rhomboids Mobilization Type Strumming,Sustained Pressure, Trigger Point Release Parascapulars Body Location B Infraspinatus Mobilization Type Sustained Pressure PT-OP-T Assessment and Plan Start: 06/15/19 15:45 Freq: Status: Active Protocol: Document 05/23/20 16:00 DCW (Rec: 05/23/20 16:43 DCW [id number]) Physical Therapy Assessment Impairments Impairments Functional Activities, Functional Mobility,Pain, Posture,ROM,Strength,Tone Goals Four Impairment Pt experiences low back pain after standing for 10 minutes Fpc Goal (LTG) Pt to stand for 30 minutes with no increased back pain to enable her to perform meal prep pain-free. 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 flexion and extension to ensure ability to perform farm chores when allowed per post-op protocol. LTG Duration 05/25/20 Two Impairment Pt unable to use left arm to wash hair Fpc Goal (LTG) Pt to wash hair using left arm with no increase in symptoms within protocol guidelines LTG Duration 05/25/20 - Improving One Impairment Pt does not have an appropriate home exercise program Short Term Goal (STG) Pt to be independent and compliant with an appropriate HEP STG Duration 04/24/20 - Intermittent with HEP Assessment Summary Assessment Pt not doing well today. Very lethargic, increased tone throughout today. Physical Therapy Plan Frequency and Duration Frequency of Treatment 2x/Week Duration of Treatment 10 weeks Plan of Care Start Date 03/25/20 Plan of Care End Date 06/03/20 Therapeutic Interventions Therapeutic Interventions Home Exercise Program,Joint Mobilizations,Manual Therapy, Patient/Caregiver Education, Self-Care/Home Management,Soft Tissue Mobilization, Therapeutic Activities, Therapeutic Exercises Modalities Cold Pack/Ice Massage,Electric Stimulation,Hot Packs, Ultrasound Next Visit Focus/Plan Next Note Type Treatment Note Next Visit Plan Increasing AROM, shoulder strengthening
--- NOTE | 2020-07-27 15:58 | PT.OTN ---
Current Diagnoses Primary osteoarthritis, left shoulder (07/27/20) Pain in left shoulder (07/27/20) Stiffness of left shoulder, not elsewhere classified (07/27/20) Low back pain (07/27/20) Unspecified rotator cuff tear or rupture of left shoulder, not specified as traumatic (07/27/20) Laceration of muscle, fascia and tendon of long head of biceps, left arm, sequela (07/27/20) Physical Therapy Treatment Note PT-OP-A Visit Information Start: 06/15/19 15:45 Freq: Status: Active Protocol: Document 07/27/20 15:15 DCW (Rec: 07/27/20 15:58 DCW [id number]) Out-Patient Physical Therapy Visit Information Visit Information Visit Type Progress Note Visit Start Time 15:15 Visit Stop Time 16:00 Total Visit Minutes 45 Visit Number 33 Number of BILINGUAL SPANISH INBOUND SALES Visits 0 Evaluation Information Evaluation Date 06/15/19 PT-OP-B Current Condition Start: 06/15/19 15:45 Freq: Status: Active Protocol: Document 03/25/20 16:00 DCW (Rec: 03/25/20 16:06 DCW [id number]) Current Condition History of Current Condition Onset Date 05/30/19 Current Complaints Left shoulder pain, movement restriction History of Current Condition Pt is a 73 year old female presenting 2.5 weeks s/p surgical repair of a left rotator cuff tear, A/C arthritis, and LH biceps tear. 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 Pt reports the most pain is caused my any standing/ twisting motions, which occurs frequently with all her house and barn work, which pt is not able to have anyone else help with. Pt reports pain level right now is 0/10, but reports it can go up to 10/10 at worst. Reports she just has to stop whatever she is doing and sit down, or may lose balance and fall over. Prior Treatments and Tests s/p ARCR, acromioplasty HIREN, anchor biceps tendon Prior Shoulder MRI: IMPRESSION: 1. Moderate acromioclavicular joint osteoarthritis and downsloping acromion depressing the musculotendinous junction of supraspinatus and infraspinatus. 2. Tendinosis and low to moderate grade articular and bursal surface partial- thickness tear involving distal supraspinatus and infraspinatus extending to musculotendinous junction. Mild supraspinatus muscle atrophy. 3. Tendinosis and low to moderate grade partial- thickness tear involving proximal intra-articular portion of long head biceps tendon. 4. No evidence of focal labral tear. Per Hernan Corona M.D. on 2018 PT-OP-C Subjective Start: 06/15/19 15:45 Freq: Status: Active Protocol: Document 07/27/20 15:15 DCW (Rec: 07/27/20 15:58 DCW [id number]) OP-PT Subjective Patient Comments Patient Comments Pt has had an extended break from skilled physical therapy due to poor reaction to her cancer treatment and transfusion PT-OP-F Manual Assessment Start: 03/25/20 16:20 Freq: Status: Active Protocol: Document 07/27/20 15:15 DCW (Rec: 07/27/20 15:40 DCW [id number]) Manual Assessments Soft Tissue Assessment Soft Tissue Mobility Assessment Moderate tone and tenderness to palpation 2/4: Pain with wincing along thoraco/lumbar paraspinals, bilateral QL, B Piriformis, B Psoas. PT-OP-K Range of Motion Start: 06/15/19 15:45 Freq: Status: Active Protocol: Document 07/27/20 15:15 DCW (Rec: 07/27/20 15:40 DCW [id number]) Lumbar Spine Range of Motion Lumbar Spine Active Degrees Testing Position Standing Flexion 41 Extension 4 Shoulder Goniometric Range of Motion Shoulder Right Active Testing Position Sitting Flexion 130 Abduction 152 External Rotation at 0 degrees Abduction 46 Left Passive Testing Position Sitting Flexion 132 Abduction 156 External Rotation at 0 degrees Abduction 52 Left Active Testing Position Sitting Flexion 126 Abduction 150 External Rotation at 0 degrees Abduction 48 PT-OP-L Special Tests Start: 06/15/19 15:45 Freq: Status: Active Protocol: Document 07/27/20 15:15 DCW (Rec: 07/27/20 15:40 DCW [id number]) Special Tests Shoulder Special Tests Step deformity Test Results Positive Right PT-OP-M Strength Start: 06/15/19 15:45 Freq: Status: Active Protocol: Document 07/27/20 15:15 DCW (Rec: 07/27/20 15:40 DCW [id number]) Shoulder Strength Shoulder Manual Muscle Testing Right Flexion 3+ Fair+ Abduction (C5) 3+ Fair+ External Rotation 4 Good Internal Rotation 4 Good Left Flexion 3+ Fair+ Abduction (C5) 3+ Fair+ External Rotation 4 Good Internal Rotation 4 Good PT-OP-Q Treatments Start: 06/15/19 15:45 Freq: Status: Active Protocol: Document 07/27/20 15:15 DCW (Rec: 07/27/20 15:58 DCW [id number]) Manual Therapy Treatment Soft Tissue Mobilization Paraspinal Body Location B Lumbar Paraspinals Quadratus Lumborum Body Location B QL Mobilization Type Sustained Pressure,Trigger Point Release Rhomboids Body Location B Rhomboids Mobilization Type Strumming,Sustained Pressure, Trigger Point Release Parascapulars Body Location B Infraspinatus Mobilization Type Sustained Pressure Upper Trap Body Location Bilateral Upper Trap Mobilization Type Sustained Pressure,Trigger Point Release Intensity/Depth Moderate Body Position Supine Manual Techniques Testing Comments Low back, shoulder testing PT-OP-T Assessment and Plan Start: 06/15/19 15:45 Freq: Status: Active Protocol: Document 07/27/20 15:15 DCW (Rec: 07/27/20 15:58 DCW [id number]) Physical Therapy Assessment Impairments Impairments Functional Activities, Functional Mobility,Pain, Posture,ROM,Strength,Tone Goals Four Impairment Pt experiences low back pain after standing for 10 minutes Long-Term Goal (LTG) Pt to stand for 30 minutes with no increased back pain to enable her to perform meal prep pain-free. 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 flexion and extension to ensure ability to perform farm chores when allowed per post-op protocol. LTG Duration 05/25/20 Two Impairment Pt unable to use left arm to wash hair Long-Term Goal (LTG) Pt to wash hair using left arm with no increase in symptoms within protocol guidelines LTG Duration 05/25/20 - Improving One Impairment Pt does not have an appropriate home exercise program Short Term Goal (STG) Pt to be independent and compliant with an appropriate HEP STG Duration 04/24/20 - Intermittent with HEP Assessment Summary Assessment Pt overall doing fairly well with shoulder mobility, back still painful. Pt is presenting with a new step deformity on her right A/C joint, indicating a new A/C joint separation. Pt should benefit from skilled therapy focusing on improving lumbar and shoulder mobility, strengthening, and decreasing tone. Physical Therapy Plan Frequency and Duration Frequency of Treatment 2x/Week Duration of Treatment 10 weeks Plan of Care Start Date 07/27/20 Plan of Care End Date 10/05/20 Therapeutic Interventions Therapeutic Interventions Home Exercise Program,Joint Mobilizations,Manual Therapy, Patient/Caregiver Education, Self-Care/Home Management,Soft Tissue Mobilization, Therapeutic Activities, Therapeutic Exercises Modalities Cold Pack/Ice Massage,Electric Stimulation,Hot Packs, Ultrasound Next Visit Focus/Plan Next Note Type Treatment Note Next Visit Plan Increasing AROM, shoulder strengthening
--- NOTE | 2020-07-27 16:00 | PT.OPPOC ---
Physical, Occupational & Speech Therapy At [facility] Current Diagnoses Primary osteoarthritis, left shoulder (07/27/20) Pain in left shoulder (07/27/20) Stiffness of left shoulder, not elsewhere classified (07/27/20) Low back pain (07/27/20) Unspecified rotator cuff tear or rupture of left shoulder, not specified as traumatic (07/27/20) Laceration of muscle, fascia and tendon of long head of biceps, left arm, sequela (07/27/20) Visit Care Team Role Provider Type Fuad Burkett MD Primary Care Provider Physician Referring Provider Specialty: Internal Medicine Address: [address] [place] [address], [id number] Email: [email or web address] [email or web address] Lindsay MD Attending Provider Physician Specialty: Orthopedic Surgery Address: [address] [place] [address], [address] Email: [email or web address] Plan Of Care PT-OP-T Assessment and Plan Start: 06/15/19 15:45 Freq: Status: Active Protocol: Document 07/27/20 15:15 DCW (Rec: 07/27/20 15:58 DCW [id number]) Physical Therapy Assessment Impairments Impairments Functional Activities, Functional Mobility,Pain, Posture,ROM,Strength,Tone Goals Four Impairment Pt experiences low back pain after standing for 10 minutes Company Secretary Goal (LTG) Pt to stand for 30 minutes with no increased back pain to enable her to perform meal prep pain-free. 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 flexion and extension to ensure ability to perform farm chores when allowed per post-op protocol. LTG Duration 05/25/20 Two Impairment Pt unable to use left arm to wash hair Fdc Goal (LTG) Pt to wash hair using left arm with no increase in symptoms within protocol guidelines LTG Duration 05/25/20 - Improving One Impairment Pt does not have an appropriate home exercise program Short Term Goal (STG) Pt to be independent and compliant with an appropriate HEP STG Duration 04/24/20 - Intermittent with HEP Assessment Summary Assessment Pt overall doing fairly well with shoulder mobility, back still painful. Pt is presenting with a new step deformity on her right A/C joint, indicating a new A/C joint separation. Pt should benefit from skilled therapy focusing on improving lumbar and shoulder mobility, strengthening, and decreasing tone. Physical Therapy Plan Frequency and Duration Frequency of Treatment 2x/Week Duration of Treatment 10 weeks Plan of Care Start Date 07/27/20 Plan of Care End Date 10/05/20 Therapeutic Interventions Therapeutic Interventions Home Exercise Program,Joint Mobilizations,Manual Therapy, Patient/Caregiver Education, Self-Care/Home Management,Soft Tissue Mobilization, Therapeutic Activities, Therapeutic Exercises Modalities Cold Pack/Ice Massage,Electric Stimulation,Hot Packs, Ultrasound Next Visit Focus/Plan Next Note Type Treatment Note Next Visit Plan Increasing AROM, shoulder strengthening Plan of Care Dates Plan of Care Start Date 07/27/20 Plan of Care End Date 10/05/20 Electronically Signed by: Bull Nelson, PT 07/27/20 1600 Please Sign and Return: I have reviewed this Plan of Care and certify that the skilled therapy services above are required to meet the patient?s needs. Physician Signature Date Printed Name and Credentials Clinical Instructor Signature Printed Name and Credentials
--- NOTE | 2020-08-10 17:37 | PT.OTN ---
Current Diagnoses Primary osteoarthritis, left shoulder (08/10/20) Pain in left shoulder (08/10/20) Stiffness of left shoulder, not elsewhere classified (08/10/20) Low back pain (08/10/20) Unspecified rotator cuff tear or rupture of left shoulder, not specified as traumatic (08/10/20) Laceration of muscle, fascia and tendon of long head of biceps, left arm, sequela (08/10/20) Physical Therapy Treatment Note PT-OP-A Visit Information Start: 06/15/19 15:45 Freq: Status: Active Protocol: Document 08/10/20 16:45 DCW (Rec: 08/10/20 17:37 DCW [id number]) Out-Patient Physical Therapy Visit Information Visit Information Visit Type Treatment Note Visit Start Time 16:45 Visit Stop Time 17:30 Total Visit Minutes 45 Visit Number 34 Number of MECHANICAL SYSTEMS CONTROL ENGINEER Visits 0 Evaluation Information Evaluation Date 06/15/19 PT-OP-B Current Condition Start: 06/15/19 15:45 Freq: Status: Active Protocol: Document 03/25/20 16:00 DCW (Rec: 03/25/20 16:06 DCW [id number]) Current Condition History of Current Condition Onset Date 05/30/19 Current Complaints Left shoulder pain, movement restriction History of Current Condition Pt is a 73 year old female presenting 2.5 weeks s/p surgical repair of a left rotator cuff tear, A/C arthritis, and LH biceps tear. 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 Pt reports the most pain is caused my any standing/ twisting motions, which occurs frequently with all her house and barn work, which pt is not able to have anyone else help with. Pt reports pain level right now is 0/10, but reports it can go up to 10/10 at worst. Reports she just has to stop whatever she is doing and sit down, or may lose balance and fall over. Prior Treatments and Tests s/p ARCR, acromioplasty HIREN, anchor biceps tendon Prior Shoulder MRI: IMPRESSION: 1. Moderate acromioclavicular joint osteoarthritis and downsloping acromion depressing the musculotendinous junction of supraspinatus and infraspinatus. 2. Tendinosis and low to moderate grade articular and bursal surface partial- thickness tear involving distal supraspinatus and infraspinatus extending to musculotendinous junction. Mild supraspinatus muscle atrophy. 3. Tendinosis and low to moderate grade partial- thickness tear involving proximal intra-articular portion of long head biceps tendon. 4. No evidence of focal labral tear. Per Hernan Corona M.D. on 2018 PT-OP-C Subjective Start: 06/15/19 15:45 Freq: Status: Active Protocol: Document 08/10/20 16:45 DCW (Rec: 08/10/20 17:37 DCW [id number]) OP-PT Subjective Patient Comments Patient Comments Pt is coming from getting multiple injections inher glutes, and is incredibly sore and fatigued. PT-OP-F Manual Assessment Start: 03/25/20 16:20 Freq: Status: Active Protocol: Document 07/27/20 15:15 DCW (Rec: 07/27/20 15:40 DCW [id number]) Manual Assessments Soft Tissue Assessment Soft Tissue Mobility Assessment Moderate tone and tenderness to palpation 2/4: Pain with wincing along thoraco/lumbar paraspinals, bilateral QL, B Piriformis, B Psoas. PT-OP-K Range of Motion Start: 06/15/19 15:45 Freq: Status: Active Protocol: Document 07/27/20 15:15 DCW (Rec: 07/27/20 15:40 DCW [id number]) Lumbar Spine Range of Motion Lumbar Spine Active Degrees Testing Position Standing Flexion 41 Extension 4 Shoulder Goniometric Range of Motion Shoulder Right Active Testing Position Sitting Flexion 130 Abduction 152 External Rotation at 0 degrees Abduction 46 Left Passive Testing Position Sitting Flexion 132 Abduction 156 External Rotation at 0 degrees Abduction 52 Left Active Testing Position Sitting Flexion 126 Abduction 150 External Rotation at 0 degrees Abduction 48 PT-OP-L Special Tests Start: 06/15/19 15:45 Freq: Status: Active Protocol: Document 07/27/20 15:15 DCW (Rec: 07/27/20 15:40 DCW [id number]) Special Tests Shoulder Special Tests Step deformity Test Results Positive Right PT-OP-M Strength Start: 06/15/19 15:45 Freq: Status: Active Protocol: Document 07/27/20 15:15 DCW (Rec: 07/27/20 15:40 DCW [id number]) Shoulder Strength Shoulder Manual Muscle Testing Right Flexion 3+ Fair+ Abduction (C5) 3+ Fair+ External Rotation 4 Good Internal Rotation 4 Good Left Flexion 3+ Fair+ Abduction (C5) 3+ Fair+ External Rotation 4 Good Internal Rotation 4 Good PT-OP-Q Treatments Start: 06/15/19 15:45 Freq: Status: Active Protocol: Document 08/10/20 16:45 DCW (Rec: 08/10/20 17:37 DCW [id number]) Manual Therapy Treatment Soft Tissue Mobilization Paraspinal Body Location B Lumbar Paraspinals Quadratus Lumborum Body Location B QL Mobilization Type Sustained Pressure,Trigger Point Release Rhomboids Body Location B Rhomboids Mobilization Type Strumming,Sustained Pressure, Trigger Point Release Parascapulars Body Location B Infraspinatus Mobilization Type Sustained Pressure Upper Trap Body Location Bilateral Upper Trap Mobilization Type Sustained Pressure,Trigger Point Release Intensity/Depth Moderate Body Position Supine PT-OP-T Assessment and Plan Start: 06/15/19 15:45 Freq: Status: Active Protocol: Document 08/10/20 16:45 DCW (Rec: 08/10/20 17:37 DCW [id number]) Physical Therapy Assessment Impairments Impairments Functional Activities, Functional Mobility,Pain, Posture,ROM,Strength,Tone Goals Four Impairment Pt experiences low back pain after standing for 10 minutes Communications Specialist Goal (LTG) Pt to stand for 30 minutes with no increased back pain to enable her to perform meal prep pain-free. 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 flexion and extension to ensure ability to perform farm chores when allowed per post-op protocol. LTG Duration 05/25/20 Two Impairment Pt unable to use left arm to wash hair Communications Specialist Goal (LTG) Pt to wash hair using left arm with no increase in symptoms within protocol guidelines LTG Duration 05/25/20 - Improving One Impairment Pt does not have an appropriate home exercise program Short Term Goal (STG) Pt to be independent and compliant with an appropriate HEP STG Duration 04/24/20 - Intermittent with HEP Assessment Summary Assessment Pt incredible fatigued after a long day. Was asleep in the waiting room, and was very quiet and lethargic during treatment session. Pt may be canceling multiple upcoming appointments, as she is returning to her daily cancer treatments, and is unsure when they will be scheduled. Physical Therapy Plan Frequency and Duration Frequency of Treatment 2x/Week Duration of Treatment 10 weeks Plan of Care Start Date 07/27/20 Plan of Care End Date 10/05/20 Therapeutic Interventions Therapeutic Interventions Home Exercise Program,Joint Mobilizations,Manual Therapy, Patient/Caregiver Education, Self-Care/Home Management,Soft Tissue Mobilization, Therapeutic Activities, Therapeutic Exercises Modalities Cold Pack/Ice Massage,Electric Stimulation,Hot Packs, Ultrasound Next Visit Focus/Plan Next Note Type Treatment Note Next Visit Plan Increasing AROM, shoulder strengthening
--- NOTE | 2020-08-23 14:50 | PT.OPDS ---
Current Diagnoses Primary osteoarthritis, left shoulder (08/10/20) Pain in left shoulder (08/10/20) Stiffness of left shoulder, not elsewhere classified (08/10/20) Low back pain (08/10/20) Unspecified rotator cuff tear or rupture of left shoulder, not specified as traumatic (08/10/20) Laceration of muscle, fascia and tendon of long head of biceps, left arm, sequela (08/10/20) Visit Care Team Role Provider Type Fuad Burkett MD Primary Care Provider Physician Referring Provider Specialty: Internal Medicine Address: [address] [place] [address], [address] Email: [email or web address] Rory Lindsay MD Attending Provider Physician Specialty: Orthopedic Surgery Address: [address] [place] [address], [id number] Email: [email or web address] Visit Number Visit Number 34 Discharge Summary PT-OP-B Current Condition Start: 06/15/19 15:45 Freq: Status: Active Protocol: Document 03/25/20 16:00 DCW (Rec: 03/25/20 16:06 DCW [id number]) Current Condition History of Current Condition Onset Date 05/30/19 Current Complaints Left shoulder pain, movement restriction History of Current Condition Pt is a 73 year old female presenting 2.5 weeks s/p surgical repair of a left rotator cuff tear, A/C arthritis, and LH biceps tear. 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 Pt reports the most pain is caused my any standing/ twisting motions, which occurs frequently with all her house and barn work, which pt is not able to have anyone else help with. Pt reports pain level right now is 0/10, but reports it can go up to 10/10 at worst. Reports she just has to stop whatever she is doing and sit down, or may lose balance and fall over. Prior Treatments and Tests s/p ARCR, acromioplasty HIREN, anchor biceps tendon Prior Shoulder MRI: IMPRESSION: 1. Moderate acromioclavicular joint osteoarthritis and downsloping acromion depressing the musculotendinous junction of supraspinatus and infraspinatus. 2. Tendinosis and low to moderate grade articular and bursal surface partial- thickness tear involving distal supraspinatus and infraspinatus extending to musculotendinous junction. Mild supraspinatus muscle atrophy. 3. Tendinosis and low to moderate grade partial- thickness tear involving proximal intra-articular portion of long head biceps tendon. 4. No evidence of focal labral tear. Per Hernan Corona M.D. on 2018 PT-OP-C Subjective Start: 06/15/19 15:45 Freq: Status: Active Protocol: Document 08/10/20 16:45 DCW (Rec: 08/10/20 17:37 DCW [id number]) OP-PT Subjective Patient Comments Patient Comments Pt is coming from getting multiple injections inher glutes, and is incredibly sore and fatigued. PT-OP-F Manual Assessment Start: 03/25/20 16:20 Freq: Status: Active Protocol: Document 07/27/20 15:15 DCW (Rec: 07/27/20 15:40 DCW [id number]) Manual Assessments Soft Tissue Assessment Soft Tissue Mobility Assessment Moderate tone and tenderness to palpation 2/4: Pain with wincing along thoraco/lumbar paraspinals, bilateral QL, B Piriformis, B Psoas. PT-OP-K Range of Motion Start: 06/15/19 15:45 Freq: Status: Active Protocol: Document 07/27/20 15:15 DCW (Rec: 07/27/20 15:40 DCW [id number]) Lumbar Spine Range of Motion Lumbar Spine Active Degrees Testing Position Standing Flexion 41 Extension 4 Shoulder Goniometric Range of Motion Shoulder Right Active Testing Position Sitting Flexion 130 Abduction 152 External Rotation at 0 degrees Abduction 46 Left Passive Testing Position Sitting Flexion 132 Abduction 156 External Rotation at 0 degrees Abduction 52 Left Active Testing Position Sitting Flexion 126 Abduction 150 External Rotation at 0 degrees Abduction 48 PT-OP-L Special Tests Start: 06/15/19 15:45 Freq: Status: Active Protocol: Document 07/27/20 15:15 DCW (Rec: 07/27/20 15:40 DCW [id number]) Special Tests Shoulder Special Tests Step deformity Test Results Positive Right PT-OP-M Strength Start: 06/15/19 15:45 Freq: Status: Active Protocol: Document 07/27/20 15:15 DCW (Rec: 07/27/20 15:40 DCW [id number]) Shoulder Strength Shoulder Manual Muscle Testing Right Flexion 3+ Fair+ Abduction (C5) 3+ Fair+ External Rotation 4 Good Internal Rotation 4 Good Left Flexion 3+ Fair+ Abduction (C5) 3+ Fair+ External Rotation 4 Good Internal Rotation 4 Good PT-OP-T Assessment and Plan Start: 06/15/19 15:45 Freq: Status: Active Protocol: Document 08/23/20 14:48 DCW (Rec: 08/23/20 14:50 DCW [id number]) Physical Therapy Assessment Assessment Summary Assessment Pt's son phoned clinic today to cancel all remaining appointments and request discharge. Pt is currently struggling with her health during her cancer treatment, and would like to stop PT until she is feeling better. Son was informed she would require a new referral in order to return at a later date . Pt discharged at this time. Physical Therapy Plan Discharge Physical Therapy Discharge Reasons Change in Medical Status Next Visit Focus/Plan Next Note Type Discharge Summary
== END 2020-09-01 09:38 ==
LOC: PHYS 16:45
PROVIDERS: PCP Internal Medicine; Referring Provider Internal Medicine; Visit Provider Orthopaedic Surgery
DX: M75.102 Unspecified rotator cuff tear or rupture of left shoulder, not specified as traumatic (principal); M19.012 Primary osteoarthritis, left shoulder; M25.612 Stiffness of left shoulder, not elsewhere classified; M25.512 Pain in left shoulder; S46 Injury of muscle, fascia and tendon at shoulder and upper arm level; M54.5 Low back pain
CPT/HCPCS: 97110; 97140; 97162; 97164

== ENCOUNTER 2020-09-03 04:18 | Emergency (ER) | payer OTHER, MEDICAID, SELFPAY ==
[2020-09-03] VITALS (10 sets, daily range): BP systolic 176–200; BP diastolic 86–103; PULSE 74–86; RESP 9–27; TEMP 36.8; O2SAT 97–99
--- NOTE | 2020-09-03 04:37 | ED.GENADULT ---
HPI - General Adult General Chief complaint: Nausea/Vomiting/Diarrhea Stated complaint: Possible dehydration Time Seen by Provider: 09/03/20 04:24 Source: patient and family (Some) Mode of arrival: Ambulatory Limitations: no limitations History of Present Illness HPI narrative: Patient is a 74-year-old female has metastatic cancer. Is undergoing treatment by Oncology. Is here because of a concern for dehydration. She states that over the past several days she has been vomiting up mucus. Her son states that she still is able to eat and drink somewhat but it is less than normal. They contacted their primary doctor yesterday afternoon who told them to come to the emergency department for evaluation. Patient waited greater than 12 hours after talking with her primary doctor. She stated that she is very stubborn and that is why they waited so long. She states she is feeling very weak. She does have a history of ulcers and is not currently on any anti reflux medication. She has been on Prilosec and Carafate in the past. Related Data Home Medications Medication Instructions Recorded Confirmed cinnamon bark [Cinnamon] 1 cap PO BID 03/20/18 08/02/20 arina (Zingiber officinalis) 500 mg PO BID 03/20/18 08/02/20 Women's 50 Plus Daily Formula 1 cap PO DAILY 05/06/18 08/02/20 amlodipine 2 tab PO DAILY 05/06/18 08/02/20 lidocaine 1 patch TOPICAL Q12H PRN 05/06/18 08/02/20 triamterene-hydrochlorothiazid 1 tab PO DAILY PRN 05/06/18 08/02/20 turmeric root extract 500 mg PO DAILY 05/06/18 08/02/20 Previous Rx's Medication Instructions Recorded pazopanib [Votrient] 800 mg PO DAILY 30 Days #120 tab 03/15/20 omeprazole magnesium [Prilosec OTC] 20 mg PO DAILY #30 tab 09/03/20 ondansetron HCl [Zofran] 4 mg PO Q6H PRN #10 tab 09/03/20 sucralfate [Carafate] 1 g PO BID #60 tab 09/03/20 Allergies Allergy/AdvReac Type Severity Reaction Status Date / Time Pork/Porcine Containing Allergy Intermediate SWELLING, Verified 02/19/20 08:39 Products Vomiting Review of Systems Constitutional Constitutional: Denies chills, Denies fever(s), Denies headache(s) and Reports malaise ENT Ears, Nose, Mouth, and Throat: Denies headache(s) Cardiovascular Cardiovascular: Denies chest pain and Denies dyspnea Respiratory Respiratory: Denies dyspnea Gastrointestinal Gastrointestinal: Denies abdominal pain, Denies change in bowel habits and Reports vomiting Genitourinary Genitourinary: Denies dysuria Genitourinary: Denies dysuria Musculoskeletal Musculoskeletal: Denies arthralgias and Denies myalgias Integumentary/Breasts Skin/Breast: Denies rash Neurologic Neurologic: Denies headache(s) Hematologic/Lymphatic On Anticoagulants: No Allergic/Immunologic Allergic/Immunologic: Denies urticaria Patient History Medical History Acute bilateral low back pain with bilateral sciatica Arthritis Bleeding ulcer (2017) GERD (gastroesophageal reflux disease) History of frequent headaches History of transfusion (01/16/14) History of transfusion of packed red blood cells (01/16/14) HTN (hypertension) Hx of radiation therapy Left rib fracture (09/2017) Metastasizing leiomyoma of uterus Port-A-Cath in place Wears dentures Wears glasses Surgical History (Updated 02/03/20 @ 17:50 by Kwadwo Uribe MD) History of colonoscopy with polypectomy (03/22/14) History of esophagogastroduodenoscopy (EGD) (05/22/18) History of esophagogastroduodenoscopy (EGD) (03/22/14) History of lung biopsy (06/2014) History of total hysterectomy with bilateral salpingo-oophorectomy (BSO) (01/2014) Hx of bilateral cataract extraction (02/15/15) Hx of dilation and curettage (01/16/14) Hx of shoulder surgery (2019) Status post dilation and curettage Social History household members: family Smoking Status: Never smoker alcohol intake: never Smoking Status: Never smoker alcohol intake frequency: 0-2 drinks per day Substance Use Type: does not use Exam Initial Vital Signs Initial Vital Signs: Vital Signs Temperature 98.3 F 09/03/20 04:25 Pulse Rate 79 09/03/20 04:25 Respiratory Rate 17 09/03/20 04:25 Blood Pressure 200/103 H 09/03/20 04:25 Pulse Oximetry 97 09/03/20 04:25 Const General: cooperative Limitations: mental status not altered HENMT Head: normal to inspection and normocephalic Resp Effort & Inspection: normal respiratory effort Cardio Rate: regular rate Skin General: pallor Lesions: no lesions Rashes: no rashes Neuro General: patient alert and patient awake Cognition: normal cognition Speech: speech normal Extrem General: capillary refill normal Psych Appearance: grossly normal and well kempt Scores GCS [place] coma scale eye opening: Spontaneous Leo coma scale verbal response: Orientated Leo coma scale motor response: Obey commands Leo coma scale total score: 15 Course Orders Ordered: ED Orders 09/03/20 04:40 Complete Blood Count AUTO DIFF Stat Comprehensive Metabolic Panel Stat Lipase Stat Type and Screen Stat Discontinued Medications Sodium Chloride (Normal Saline 0.9%) 1,000 mls @ 1,000 mls/hr IV BOLUS ONE Stop: 09/03/20 05:23 Last Infusion: 09/03/20 05:50 Dose: 0 mls/hr Documented by: Admin: 09/03/20 04:48 Dose: 1,000 mls/hr Documented by: FARA Ondansetron HCl (Ondansetron 4 Mg/2 Ml Inj) 4 mg IV NOW ONE Stop: 09/03/20 06:33 Last Admin: 09/03/20 06:40 Dose: 4 mg Documented by: Pantoprazole Sodium (Pantoprazole 40 Mg Vial) 40 mg IV NOW ONE Stop: 09/03/20 05:56 Last Admin: 09/03/20 05:59 Dose: 40 mg Documented by: FARA Vital Signs Vital signs: Vital Signs - 8 hr 09/03/20 04:25 09/03/20 04:29 09/03/20 04:30 Temperature 98.3 F Pulse Rate 79 84 84 Respiratory Rate 17 27 H 19 Blood Pressure 200/103 H Pulse Oximetry 97 98 98 09/03/20 04:38 09/03/20 05:00 09/03/20 05:30 Temperature Pulse Rate 80 80 76 Respiratory Rate 17 21 16 Blood Pressure 176/89 H 186/87 H 192/92 H Pulse Oximetry 97 98 98 09/03/20 05:59 09/03/20 06:00 09/03/20 06:30 Temperature Pulse Rate 75 74 82 Respiratory Rate 12 9 L 17 Blood Pressure 194/86 H 190/100 H Pulse Oximetry 98 99 97 Medical Decision Making Lab Data Lab results reviewed: Yes I reviewed the patient's lab results. Result diagrams: 09/03/20 04:40 09/03/20 04:40 Labs: Lab Results 09/03/20 09/03/20 09/03/20 Range/Units 04:40 04:40 04:40 WBC 7.7 (4.5-11.0) X10^3/uL RBC 2.85 L (4.0-5.2) X10^6/uL Hgb 9.7 L (12.0-16.0) g/dL Hct 28.8 L (36-46) % MCV 101.0 H (80-100) fL MCH 34.1 H (26-34) PG MCHC 33.8 (30-36) % RDW 18.4 H (11.6-14.8) % Plt Count 340 (150-400) X10^3/uL Neut % (Auto) 87.6 H (50-75) % Lymph % (Auto) 4.1 L (25-40) % [place] % (Auto) 7.2 (3-14) % Eos % (Auto) 0.6 L (2-4) % Baso % (Auto) 0.5 (0-2) % Neut # (Auto) 6700 (7734-2367) /uL Lymph # (Auto) 300 L (0113-8205) /uL [place] # (Auto) 600 (0-900) /uL Eos # (Auto) 0 (0-450) /uL Baso # (Auto) 0 (0-100) /uL Sodium 133 L (137-145) mmol/L Potassium 4.1 (3.4-5.1) mmol/L Chloride 98 (98-107) mmol/L Carbon Dioxide 28 (22-32) mmol/L BUN 14 (7-17) mg/dL Creatinine 0.47 L (0.52-1.04) mg/dL Estimated GFR > 60.0 (>60) mL/min BUN/Creatinine Ratio 29.8 H (6-22) Glucose 123 H (80-110) mg/dL Calcium 9.0 (8.4-10.2) mg/dL Total Bilirubin 0.6 (0.2-1.3) mg/dL AST 32 (14-36) IU/L ALT 18 (<35) IU/L Alkaline Phosphatase 84 (38-126) U/L Total Protein 7.0 (6.3-8.2) g/dL Albumin 3.6 (3.5-5.0) g/dL Globulin 3.4 (1.7-4.1) g/dL Albumin/Globulin Ratio 1.1 (1.0-2.8) Lipase 27 (23-300) U/L Blood Type A Negative Antibody Screen Negative Urine Dip Bedside Urine Glucose Negative Bedside Urine Bilirubin - Negative Bedside Urine Ketone - Negative Urine Specific [place] 1.015 Bedside Urine Occult Blood - Negative Bedside Urine pH 7.0 Bedside Urine Protein - Negative Bedside Urine Urobilinogen - Negative Bedside Urine Nitrite - Negative Bedside Urine Leukocytes - Negative Esterase Point of care testing: Urine Dip Bedside Urine Glucose Negative Bedside Urine Bilirubin - Negative Bedside Urine Ketone - Negative Urine Specific [place] 1.015 Bedside Urine Occult Blood - Negative Bedside Urine pH 7.0 Bedside Urine Protein - Negative Bedside Urine Urobilinogen - Negative Bedside Urine Nitrite - Negative Bedside Urine Leukocytes - Negative Esterase MDM Narrative Medical decision making narrative: Patient does look pale however her hemoglobin and hematocrit are not at the point where she would require any blood transfusions. Her labs are relatively unremarkable. Her urine shows no signs of infection. She finished a course of antibiotics approximately 3 days ago after she was diagnosed with the UTI by her primary doctor. She is not currently on any reflux medications. Apparently there have been discussions between her and her oncologist regarding this. The oncology medications that she is currently taking require her to have an acidic stomach in the thought that the anti reflux medications may interact with this however the son states that they have had specific discussions stating that if she needs to be on reflux medicines to help her eat that that would be the top priority. I feel that that is what is going on currently. Will discharge home and have the patient contact her primary doctor on Saturday. With her son expressed understanding and agreement. Patient had no vomiting while being in the emergency department. Discharge Plan Departure Patient Disposition: Home Clinical Impression: Nausea and vomiting Instructions: DI for Nausea -- Adult, DI for Vomiting -- Adult Activity Restrictions/Additional Instructions: Your labs today are very reassuring and urine study showed no signs of infection. The prescriptions today include 1 for nausea. You can take this as needed. Also sent home with a prescription for sucralfate/Carafate. And also Prilosec. Take these as directed. Contact your primary provider for follow-up. Return to the emergency department for any new or worsening symptoms Prescriptions: New sucralfate [Carafate] 1 gram tablet 1 g PO BID Qty: 60 RF: 0 omeprazole magnesium [Prilosec OTC] 20 mg tablet,delayed release (DR/EC) 20 mg PO DAILY Qty: 30 RF: 0 ondansetron HCl [Zofran] 4 mg tablet 4 mg PO Q6H PRN (Reason: nausea and vomiting) Qty: 10 RF: 0 No Action arina (Zingiber officinalis) 500 mg Capsule 500 mg PO BID RF: 0 cinnamon bark [Cinnamon] 500 mg Capsule 1 cap PO BID RF: 0 Votrient 200 mg Tablet 800 mg PO DAILY 30 Days Qty: 120 RF: 6 amlodipine 5 mg tablet 2 tab PO DAILY RF: 0 lidocaine 5 % adhesive patch,medicated 1 patch Topical Q12H PRN (Reason: Pain (Scale Score 1-3)) RF: 0 triamterene-hydrochlorothiazid 37.5-25 mg Tablet 1 tab PO DAILY PRN (Reason: LEG SWELLILNG) RF: 0 turmeric root extract 500 mg Capsule 500 mg PO DAILY RF: 0 Women's 50 Plus Daily Formula 1 cap PO DAILY RF: 0 Referrals: Fuad Burkett MD [Primary Care Provider] -
[2020-09-03] MEDS: SODIUM CHLORIDE 0.9% 1,000 ML 1000 ML IV (04:48)
[2020-09-03 04:59] LABS: Add Manual Diff / Slide Review NO; Basophils Absolute Auto 0 /uL (0-100); Basophils Percent Auto 0.5 % (0-2); Eosinophils Absolute Auto 0 /uL (0-450); Eosinophils Percent Auto 0.6 % (2-4); Hematocrit 28.8 % (36-46); Hemoglobin 9.7 g/dL (12.0-16.0); Lymphocytes Absolute Auto 300 /uL (1100-4500); Lymphocytes Percent Auto 4.1 % (25-40); Mean Corpuscular HGB Conc 33.8 % (30-36); Mean Corpuscular Hemoglobin 34.1 PG (26-34); Monocytes Absolute Auto 600 /uL (0-900); Monocytes Percent Auto 7.2 % (3-14); Neutrophils Absolute Auto 6700 /uL (1500-7000); Neutrophils Percent Auto 87.6 % (50-75); Platelet Count 340 X10^3/uL (150-400); Red Blood Cell Count 2.85 X10^6/uL (4.0-5.2); Red Cell Distribution Width 18.4 % (11.6-14.8); White Blood Cell Count 7.7 X10^3/uL (4.5-11.0)
[2020-09-03 05:12] LABS: Alanine Aminotransferase 18 IU/L (<35); Albumin 3.6 g/dL (3.5-5.0); Albumin Globulin Ratio 1.1 (1.0-2.8); Alkaline Phosphatase 84 U/L (38-126); Aspartate Aminotransferase 32 IU/L (14-36); BUN Creatinine Ratio 29.8 (6-22); Bilirubin Total 0.6 mg/dL (0.2-1.3); Blood Urea Nitrogen 14 mg/dL (7-17); Carbon Dioxide 28 mmol/L (22-32); Chloride 98 mmol/L (98-107); Estimated Glomerular Filt Rate > 60.0 mL/min (>60); Globulin 3.4 g/dL (1.7-4.1); Glucose 123 mg/dL (80-110); HEMOLYSIS < 15 (0-50); Lipase 27 U/L (23-300); Potassium 4.1 mmol/L (3.4-5.1); Sodium 133 mmol/L (137-145)
[2020-09-03] MEDS: PANTOPRAZOLE 40 MG VIAL IV (05:59)
[2020-09-03] MEDS: ONDANSETRON 4 MG/2 ML INJ IV (06:40)
== END 2020-09-03 07:07 | disposition home or self-care (01) ==
PROVIDERS: Emergency Provider Emergency Medicine; PCP Internal Medicine
DX: R11.2 Nausea with vomiting, unspecified (principal); C49.9 Malignant neoplasm of connective and soft tissue, unspecified
CPT/HCPCS: 36415; 80053; 81003; 83690; 85025; 86850; 86900; 86901; 96361; 96374; 96375; 99281; 99284; C9113; J2405

== ENCOUNTER → 2020-10-05 12:47 | Outpatient (CLI) | payer OTHER, MEDICAID, SELFPAY ==
[2020-10-05 13:03] LABS: Add Manual Diff / Slide Review NO; Basophils Absolute Auto 100 /uL (0-100); Eosinophils Absolute Auto 300 /uL (0-450); Eosinophils Percent Auto 4.8 % (2-4); Hematocrit 29.6 % (36-46); Hemoglobin 9.7 g/dL (12.0-16.0); Lymphocytes Absolute Auto 500 /uL (1100-4500); Lymphocytes Percent Auto 9.5 % (25-40); Mean Corpuscular HGB Conc 32.6 % (30-36); Mean Corpuscular Hemoglobin 34.3 PG (26-34); Mean Corpuscular Volume 105.2 fL (80-100); Monocytes Absolute Auto 500 /uL (0-900); Monocytes Percent Auto 8.2 % (3-14); Neutrophils Absolute Auto 4200 /uL (1500-7000); Neutrophils Percent Auto 76.5 % (50-75); Platelet Count 330 X10^3/uL (150-400); Red Blood Cell Count 2.81 X10^6/uL (4.0-5.2); Red Cell Distribution Width 18.7 % (11.6-14.8); White Blood Cell Count 5.5 X10^3/uL (4.5-11.0)
[2020-10-05 13:18] LABS: Alanine Aminotransferase 11 IU/L (<35); Albumin 3.5 g/dL (3.5-5.0); Albumin Globulin Ratio 1.2 (1.0-2.8); Alkaline Phosphatase 66 U/L (38-126); Aspartate Aminotransferase 23 IU/L (14-36); BUN Creatinine Ratio 22.2 (6-22); Bilirubin Total 0.2 mg/dL (0.2-1.3); Blood Urea Nitrogen 12 mg/dL (7-17); Calcium 9.2 mg/dL (8.4-10.2); Carbon Dioxide 32 mmol/L (22-32); Chloride 102 mmol/L (98-107); Estimated Glomerular Filt Rate > 60.0 mL/min (>60); Glucose 90 mg/dL (80-110); HEMOLYSIS < 15 (0-50); Potassium 4.1 mmol/L (3.4-5.1); Sodium 138 mmol/L (137-145); Total Protein 6.5 g/dL (6.3-8.2)
== END ==
PROVIDERS: PCP Internal Medicine; Referring Provider Internal Medicine; Visit Provider Internal Medicine
DX: C49.9 Malignant neoplasm of connective and soft tissue, unspecified (principal)
CPT/HCPCS: 36415; 80053; 85025

== ENCOUNTER → 2020-10-19 11:40 | Outpatient (CLI) | payer OTHER, MEDICAID, SELFPAY ==
--- NOTE | 2020-10-19 11:41 | DI.CT.S_ITS ---
PROCEDURE: CT CHEST ABD PEL W CON INDICATIONS: Follow-up metastatic leiomyosarcoma TECHNIQUE: After the administration of oral and intravenous contrast, 5 mm thick sections acquired from the lung apices to the symphysis. 5 mm coronal and sagittal reformats were performed, with additional 7 mm coronal MIP reformats through the lungs. For radiation dose reduction, the following was used: automated exposure control, adjustment of mA and/or kV according to patient size. COMPARISON: [facility], CT, CT CHEST ABD PEL W CON, 03/23/2020, 14:06. [facility], CT, CT CHEST ABD PEL W CON, 07/28/2020, 13:31. [facility], CT, CT CHEST ABD PEL W CON, 05/30/2020, 11:41. FINDINGS: Image quality: Excellent. CHEST: Lungs and pleura: The lung parenchyma includes areas of dense consolidation, previously present and extending from the lung pleural margins inwards, and also adjacent to the hilar bronchi bilaterally. This has not appreciably changed, and is ascribed to post treatment change, possibly related to radiation therapy. An ovoid solid nodule present at the anterior border of the upper aspect of the major fissure on the right is again seen but has diminished in size, from 1.4 cm in maximal dimension 07/28/20 to 1.1 cm currently. Similar AP dimension reduction in size has occurred and posterior to this nodule within the superior segment of the right lower lobe and to a smaller degree within the right upper lobe there is alveolar infiltration, with an appearance suggestive of post radiation pneumonitis. Several additional small pulmonary nodules are present scattered within the lung parenchyma, which have not enlarged. For example, series 5, image 53 medial right apex; left lower lobe posterior medial mid lung 5/113; lingular segment left upper lobe lower left chest 5/169. Small bilateral simple appearing posterior pleural effusions are newly present, no pneumothorax. Central and peripheral airways appear patent and normal in caliber. Mediastinum: Heart size is normal. No pericardial effusion. No mediastinal or hilar adenopathy by size criteria. Thoracic aorta and central pulmonary arteries are normal in size. Esophagus is normal in caliber. No hiatal hernia. Chest wall: No axillary or supraclavicular adenopathy by size criteria. Thyroid gland appears normal where well seen. ABDOMEN: Solid organs: Liver is normal in size and again demonstrates multiple metastatic solid mass lesions, the largest of which occupies much of the left hepatic lobe as has been previously the case but additional hepatic metastatic lesions are smaller, generally measuring approximately 1.5-2 cm in maximal dimension. No definite new hepatic metastatic lesions are found, but comparison is somewhat difficult due to change in position/angulation of the patient during current CT scanning when compared to recent prior CT scanning. Gallbladder contains a calcified stone as has been previously the case. . Biliary system is non dilated. Pancreas enhances normally. Spleen is normal in size and enhancement. No adrenal nodules. Kidneys demonstrate normal size and enhancement, without hydronephrosis. Peritoneum and bowel: Bowel loops demonstrate normal wall thickness and caliber. No free fluid or air. Nodes and vessels: No retroperitoneal or mesenteric adenopathy by size criteria. Aorta and inferior vena cava are normal in size. Miscellaneous: No ventral hernias. PELVIS: Genitourinary: Bladder wall thickness is normal. Miscellaneous: No inguinal hernias or adenopathy. Bones: No suspicious bony lesions. No vertebral body compression fractures. IMPRESSION: 1. Interval reduction in size of a previously enlarging solid mass lesion within the right upper lobe at the anterior border of the major fissure. This structure previously had measured 1.2 x 1.4 cm and now measures 0.8 x 1.1 cm. Small immediate adjacent satellite nodules have resolved. 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 No new pulmonary nodules have developed. 2. Perihilar and peripheral pleural and lung parenchymal angular areas of stable presumed scarring from prior radiation therapy are again noted, within the lung parenchyma bilaterally. This has been considered post treatment change, and has not progressed. 3. The liver parenchyma has contained multiple hepatic solid mass lesions generally small in size in the range of 1.5-2 cm. However, much of the left hepatic lobe is replaced by a solid mass, and these findings are stable over time, without new hepatic mass lesion seen. 4. No adenopathy seen, no osseous metastatic lesion found. Note is again made of a moderate size densely calcified gallstone within the gallbladder lumen without evidence of adjacent gallbladder inflammation or biliary distension. Dictated by: Manoj Reis M.D. on 10/20/2020 at 6:28 Approved by: Manoj Reis M.D. on 10/20/2020 at 6:57
== END ==
PROVIDERS: PCP Internal Medicine; Referring Provider Internal Medicine; Visit Provider Internal Medicine
DX: C49.9 Malignant neoplasm of connective and soft tissue, unspecified (principal); K76.9 Liver disease, unspecified
CPT/HCPCS: 71260; 74177; Q9967

== ENCOUNTER → 2020-10-21 13:27 | Outpatient (CLI) | payer OTHER, MEDICAID, SELFPAY ==
--- NOTE | 2020-10-21 14:38 | DI.MRI.S_ITS ---
PROCEDURE: MR HEAD/BRAIN WO/W CON INDICATIONS: Headache, N/V, metastatic leiomyosarcoma. TECHNIQUE: Noncontrast axial T1 spin echo, axial T2 fast spin echo, sagittal and axial FLAIR, coronal T2 fast spin echo, axial gradient echo, axial diffusion and ADC through the brain. After the administration of contrast, axial and coronal T1 spin echo with fat saturation through the brain. COMPARISON: None. FINDINGS: Image quality: Excellent. CSF spaces: Basal cisterns are patent. No extra-axial fluid collections. Ventricles are normal in size and shape. Brain: No midline shift. No intracranial bleeds or masses. No abnormal intracranial enhancement. There is cerebral volume loss for age. There is periventricular white matter chronic small vessel ischemic change. The brainstem appears normal. Diffusion-weighted images demonstrate no acute ischemic insults. A tiny left basal ganglia lacunar infarct can be seen. Normal intravascular flow voids are present. Skull and face: Calvarial marrow is normal in signal. Orbits appear normal. Note is made of bilateral lens replacements. Sinuses: Sinuses and mastoids appear clear. IMPRESSION: No masses or abnormal enhancement can be seen to suggest intracranial metastatic disease. Tiny left basal ganglia lacunar infarct noted. Note is made of age-appropriate brain parenchymal volume loss and chronic small vessel ischemic changes. No findings of acute or subacute infarction can be seen. No hydrocephalus or brain edema can be seen. Dictated by: Aristeo Lovelace M.D. on 10/21/2020 at 13:39 Approved by: Aristeo Lovelace M.D. on 10/21/2020 at 13:41
== END ==
PROVIDERS: PCP Internal Medicine; Referring Provider Internal Medicine; Visit Provider Internal Medicine
DX: R51.9 Headache, unspecified (principal); R11.2 Nausea with vomiting, unspecified; I63.89 Other cerebral infarction
CPT/HCPCS: 70553; A9579

== ENCOUNTER 2020-11-30 12:39 | Emergency (ER) | payer OTHER, MEDICAID, SELFPAY ==
[2020-11-30 12:45] VITALS: BP 165/128; PULSE 103; RESP 16; TEMP 36.8; O2SAT 97; BMI 21.7
[2020-11-30 13:25] LABS: Add Manual Diff / Slide Review NO; Basophils Absolute Auto 0 /uL (0-100); Basophils Percent Auto 0.5 % (0-2); Eosinophils Absolute Auto 100 /uL (0-450); Eosinophils Percent Auto 3.4 % (2-4); Hematocrit 31.8 % (36-46); Hemoglobin 10.3 g/dL (12.0-16.0); Lymphocytes Absolute Auto 400 /uL (1100-4500); Lymphocytes Percent Auto 11.4 % (25-40); Mean Corpuscular HGB Conc 32.4 % (30-36); Mean Corpuscular Hemoglobin 33.6 PG (26-34); Mean Corpuscular Volume 103.7 fL (80-100); Monocytes Absolute Auto 300 /uL (0-900); Monocytes Percent Auto 7.9 % (3-14); Neutrophils Absolute Auto 2600 /uL (1500-7000); Neutrophils Percent Auto 76.8 % (50-75); Platelet Count 203 X10^3/uL (150-400); Red Blood Cell Count 3.07 X10^6/uL (4.0-5.2); Red Cell Distribution Width 17.3 % (11.6-14.8); White Blood Cell Count 3.4 X10^3/uL (4.5-11.0)
--- NOTE | 2020-11-30 13:41 | PC.NURSE ---
PT concerned about missing appointment at oncology. States I just don't want to miss my appointment. I don't need to be here. Pt and son want to leave. Talked with pt about options of leaving vs staying. Pt wanted to sign form and leave. [facility] form given
[2020-11-30 13:49] LABS: Alanine Aminotransferase 14 IU/L (<35); Albumin 3.5 g/dL (3.5-5.0); Albumin Globulin Ratio 1.2 (1.0-2.8); Alkaline Phosphatase 54 U/L (38-126); Aspartate Aminotransferase 26 IU/L (14-36); BUN Creatinine Ratio 30.2 (6-22); Bilirubin Total 0.4 mg/dL (0.2-1.3); Blood Urea Nitrogen 16 mg/dL (7-17); Calcium 9.2 mg/dL (8.4-10.2); Carbon Dioxide 27 mmol/L (22-32); Chloride 103 mmol/L (98-107); Estimated Glomerular Filt Rate > 60.0 mL/min (>60); Glucose 93 mg/dL (80-110); HEMOLYSIS < 15 (0-50); Potassium 3.9 mmol/L (3.4-5.1); Sodium 135 mmol/L (137-145); Total Protein 6.5 g/dL (6.3-8.2)
== END 2020-11-30 13:46 | disposition left against medical advice (07) ==
PROVIDERS: Internal Medicine; Emergency Provider Emergency Medicine; PCP Internal Medicine
DX: S50.811A Abrasion of right forearm, initial encounter (principal); W01.0XXA Fall on same level from slipping, tripping and stumbling without subsequent striking against object, initial encounter; C49.9 Malignant neoplasm of connective and soft tissue, unspecified
CPT/HCPCS: 36415; 80053; 85025; 99281

== ENCOUNTER → 2021-02-08 10:05 | Outpatient (CLI) | payer OTHER, MEDICAID, SELFPAY ==
--- NOTE | 2021-02-08 10:06 | DI.CT.S_ITS ---
PROCEDURE: CT CHEST ABD PEL W CON INDICATIONS: restaging leiomyosarcoma TECHNIQUE: After the administration of oral and intravenous contrast, axial sections acquired from the supraclavicular neck to the pubic symphysis. Coronal and sagittal reformats were performed. For radiation dose reduction, the following was used: automated exposure control, adjustment of mA and/or kV according to patient size. COMPARISON: [facility], CT, CT CHEST ABD PEL W CON, 07/28/2020, 13:31. [facility], CT, CT CHEST ABD PEL W CON, 10/19/2020, 12:30. FINDINGS: Image quality: Excellent. CHEST: Lower Neck: No enlarged lymph nodes. Thyroid: Within normal limits. Axillae: No enlarged lymph nodes. Chest Wall: Unremarkable. Lungs and Airways: -Right upper lobe triangular consolidation with bronchiectasis, (3/48), unchanged. -Right upper lobe rounded pulmonary nodule measuring 0.6 cm, (3/56), unchanged. -Right upper lobe juxta fissural consolidation, (3/81), new consolidation and bronchiectasis. Previously ground-glass opacity on CT 10/19/2020. This obscures the previously seen pulmonary nodules at the right minor fissure. -Right middle/lower lobe consolidation, (3/93), increased. New cavity with air-fluid level. -Left major fissure consolidations with nodular opacity and bronchiectasis, (3/128), not significantly changed. -Left lower lobe pulmonary nodule measuring 1.2 cm, (3/158), previously 1 cm. Pleura: Small bilateral pleural effusions, increased. Right pneumothorax, (2/35), new. Heart: Heart size is normal. Coronary artery calcifications. No pericardial effusion. Thoracic Vessels: The aorta and pulmonary arteries demonstrate normal size. No central pulmonary embolism. Mediastinum and Elaine: No enlarged lymph nodes. Esophagus: Esophagus is patulous and contains oral contrast. Large hiatal hernia. ABDOMEN: Liver: Multiple hepatic metastases. A few lesions appear increased in size. For example: -Segment 6 measuring 1.8 cm, (2/54), previously 1.1 cm. -Segment 6 inferior margin measuring at 2.6 cm, (2/61), previously 2.2 cm. Left lobe of the liver is replaced by tumor. Gallbladder: Large gallstone. Biliary ducts: Unremarkable. Pancreas: Unremarkable. Spleen: Unremarkable. Adrenal Glands: Unremarkable. Kidneys and Ureters: Unremarkable. Stomach and Bowel: Stomach is mildly distended. No small bowel obstruction. The colonic wall appears edematous. There is somewhat prominent stool in the distal colon. Small appendiculolith. Peritoneum: Small volume of ascites adjacent to the liver, new. No free air. Ventral Wall: No hernia. Anasarca. Abdominal Nodes: No retroperitoneal or mesenteric adenopathy by size criteria. Vessels: Aorta and inferior vena cava are normal in size. Circumferential calcified atherosclerotic plaque. Mesenteric arteries are patent. PELVIS: Pelvic Organs: Small volume of free fluid in the pelvis. Bladder: Decompressed. Pelvic Nodes: No enlarged lymph nodes. Miscellaneous: No inguinal hernias are seen. Bones: Mild scoliosis. DDD most pronounced at L1-L2 and L5-S1. IMPRESSION: 1. New small right pneumothorax. 2. New small cavitation in the right middle/lower lobe with air-fluid level. Worsening adjacent bronchiectasis and airspace opacity. 3. Similar metastatic pulmonary nodules were visualized. Some of the nodules are now obscured by consolidative airspace opacity 4. Small bilateral pleural effusions, increased. 5. Extensive hepatic metastatic disease. A few metastases in the right lobe of the liver are increased in size. 6. Colonic wall appears edematous. Anasarca. New small volume of ascites. Comment: Preliminary findings were discussed with Aj Rogers at 11:50 a.m. Dictated by: Elias Jain M.D. on 02/08/2021 at 11:23 Approved by: Elias Jain M.D. on 02/08/2021 at 12:05
== END ==
PROVIDERS: PCP Internal Medicine; Referring Provider Internal Medicine Medical Oncology; Visit Provider Internal Medicine Medical Oncology
DX: C55 Malignant neoplasm of uterus, part unspecified (principal); C78.7 Secondary malignant neoplasm of liver and intrahepatic bile duct; C78.02 Secondary malignant neoplasm of left lung; C78.01 Secondary malignant neoplasm of right lung; J93.9 Pneumothorax, unspecified; J90 Pleural effusion, not elsewhere classified; R18.8 Other ascites; J47.9 Bronchiectasis, uncomplicated
CPT/HCPCS: 71260; 74177

== ENCOUNTER 2021-02-08 12:23 | Emergency (ER) | payer OTHER, MEDICAID, SELFPAY ==
[2021-02-08] VITALS (7 sets, daily range): BP systolic 151–161; BP diastolic 76–96; PULSE 84–107; RESP 7–28; TEMP 36.4; O2SAT 96–99; BMI 20.9
--- NOTE | 2021-02-08 12:36 | DI.RAD.S_ITS ---
PROCEDURE: XR CHEST 1V INDICATIONS: pneumo TECHNIQUE: One view of the chest was acquired. COMPARISON: [facility], CT, CT CHEST ABD PEL W CON, 02/08/2021, 10:50. [facility], CR, XR CHEST 1V, 05/06/2018, 15:33. [facility], CR, CHEST 1 VIEW, 11/06/2017, 13:19. FINDINGS: Surgical changes and devices: None. Lungs and pleura: Bilateral airspace and nodular opacities, these are increased compared to 2018. Small right pneumothorax seen on CT earlier today is faintly visualized. Blunting at the costophrenic angles due to small pleural effusions. Mediastinum: No midline shift appreciated. Calcified aortic arch. Heart size is within normal limits. Bones and chest wall: No suspicious bony lesions. Overlying soft tissues appear unremarkable. IMPRESSION: Small right pneumothorax seen on CT earlier today is faintly visualized. Bilateral airspace and nodular opacities. Dictated by: Elias Jain M.D. on 02/08/2021 at 12:55 Approved by: Elias Jain M.D. on 02/08/2021 at 13:00
--- NOTE | 2021-02-08 13:29 | ED_ITS ---
HPI - Recheck/Abnormal Lab/Rx General Chief Complaint: Recheck/Abnormal Lab/Rx Stated Complaint: PULMINARY THORAX Time Seen by Provider: 02/08/21 12:36 Source: patient Mode of arrival: Ambulatory Limitations: no limitations History of Present Illness HPI narrative: Patient is a 75-year-old female with history metastatic leiomyosarcoma, with pulmonary and liver metastasis presenting today with incidental pneumothorax found on CT. She states she had her routine CT scan which she has every 3 months and today she was found have a right small pneumothorax. She was called by the oncology office instructed to come to the emergency department immediately. She has absolutely no chest pain no shortness of breath she has been feeling at her normal state of health. Related Data Home Medications Medication Instructions Recorded Confirmed cinnamon bark 500 mg capsule 1 cap PO BID 03/20/18 08/02/20 (Cinnamon) arina (Zingiber officinalis) 500 500 mg PO BID 03/20/18 08/02/20 mg capsule Women's 50 Plus Daily Formula 1 cap PO DAILY 05/06/18 08/02/20 amlodipine 5 mg tablet 2 tab PO DAILY 05/06/18 08/02/20 lidocaine 5 % topical patch 1 patch TOPICAL Q12H PRN 05/06/18 08/02/20 triamterene 37.5 1 tab PO DAILY PRN 05/06/18 08/02/20 mg-hydrochlorothiazide 25 mg tablet turmeric root extract 500 mg 500 mg PO DAILY 05/06/18 08/02/20 capsule Previous Rx's Medication Instructions Recorded pazopanib 200 mg tablet (Votrient) 800 mg PO DAILY 30 Days #120 tab 03/15/20 omeprazole magnesium 20 mg 20 mg PO DAILY #30 tab 09/03/20 tablet,delayed release (Prilosec OTC) ondansetron HCl 4 mg tablet 4 mg PO Q6H PRN #10 tab 09/03/20 (Zofran) sucralfate 1 gram tablet (Carafate) 1 g PO BID #60 tab 09/03/20 loperamide 2 mg tablet (Imodium 2 mg PO Q6H PRN #30 tab 12/28/20 A-D) prednisone 5 mg tablet 20 mg PO DAILY #100 tab 12/28/20 Allergies Allergy/AdvReac Type Severity Reaction Status Date / Time Pork/Porcine Containing Allergy Intermediate SWELLING, Verified 02/08/21 12:37 Products Vomiting Review of Systems Review of Systems Narrative: GENERAL: Denies chills, fatigue, malaise, fever, sweats, travel HEENT: Denies sinus pain, ear pain, sore throat, difficulty swallowing, neck pain RESPIRATORY: See HPI CARDIOVASCULAR: Denies chest pain, palpitations, orthopnea, edema GASTROINTESTINAL: Denies nausea, vomiting, abdominal pain, diarrhea, constipation, melena. : Denies dysuria, frequency, incontinence, hematuria, urinary retention, flank pain. MUSCULOSKELETAL: Denies weakness, joint pain, or bony pain SKIN: No rash, no erythema, no pruritus NEUROLOGIC: Denies weakness, dizziness, headache, numbness, change in speech, confusion PSYCHIATRIC: No concerning psychosocial issues. 12 point review of systems is negative except for those stated above and HPI Patient History Medical History Acute bilateral low back pain with bilateral sciatica Arthritis Bleeding ulcer (2017) GERD (gastroesophageal reflux disease) History of frequent headaches History of transfusion (01/16/14) History of transfusion of packed red blood cells (01/16/14) HTN (hypertension) Hx of radiation therapy Left rib fracture (09/2017) Metastasizing leiomyoma of uterus Port-A-Cath in place Wears dentures Wears glasses Surgical History (Updated 02/03/20 @ 17:50 by Kwadwo Uribe MD) History of colonoscopy with polypectomy (03/22/14) History of esophagogastroduodenoscopy (EGD) (05/22/18) History of esophagogastroduodenoscopy (EGD) (03/22/14) History of lung biopsy (06/2014) History of total hysterectomy with bilateral salpingo-oophorectomy (BSO) (01/2014) Hx of bilateral cataract extraction (02/15/15) Hx of dilation and curettage (01/16/14) Hx of shoulder surgery (2018) Status post dilation and curettage Social History household members: family Smoking Status: Never smoker alcohol intake: never Smoking Status: Never smoker alcohol intake frequency: holidays/special occasions only Substance Use Type: does not use Exam Initial Vital Signs Initial Vital Signs: Vital Signs Temperature 97.5 F L 02/08/21 12:34 Pulse Rate 107 H 02/08/21 12:34 Respiratory Rate 28 H 02/08/21 12:34 Blood Pressure 158/95 H 02/08/21 12:34 Pulse Oximetry 99 02/08/21 12:34 GENERAL: Very comfortable well-appearing 75-year-old and in no acute distress. HEENT: Head atraumatic,EOMI, pupils reactive, face symmetric, moist mucous membranes CARDIOVASCULAR: Regular rate and rhythm without murmurs, rubs or gallops. RESPIRATORY: Breath sounds equal bilaterally, no wheezes rales or rhonchi. Speaks in full sentences ABDOMEN: Soft, nontender. Normoactive bowel sounds all 4 quadrants. No guard ing or rebound. : No CVA tenderness EXTREMITIES: Normal range of motion, no clubbing or edema. Neurovascularly intact NEUROLOGICAL: Alert and oriented x4. SKIN: Warm, dry, no laceration, no petechiae, no rashes or lesions. Course Orders Ordered: ED Orders 02/08/21 12:36 XR chest 1V Stat 02/08/21 12:53 EKG-12 Lead Routine 02/08/21 14:50 XR chest 1V Stat Vital Signs Vital signs: Vital Signs - 8 hr 02/08/21 13:00 02/08/21 13:30 02/08/21 14:00 Pulse Rate 101 H 91 H 86 Respiratory Rate 22 7 L Blood Pressure 161/96 H 156/78 H 151/76 H Pulse Oximetry 98 96 97 02/08/21 14:30 02/08/21 15:00 Pulse Rate 84 87 Respiratory Rate 20 Blood Pressure 160/80 H 160/82 H Pulse Oximetry 97 98 MDM - Recheck/Abnormal Lab/Rx Imaging Data CT scan - chest: Radiologist's Impression: PROCEDURE: CT CHEST ABD PEL W CON INDICATIONS: restaging leiomyosarcoma TECHNIQUE: After the administration of oral and intravenous contrast, axial sections acquired from the supraclavicular neck to the pubic symphysis. Coronal and sagittal reformats were performed. For radiation dose reduction, the following was used: automated exposure control, adjustment of mA and/or kV according to patient size. COMPARISON: [facility], CT, CT CHEST ABD PEL W CON, 07/28/2020, 13:31. [facility], CT, CT CHEST ABD PEL W CON, 10/19/2020, 12:30. FINDINGS: Image quality: Excellent. CHEST: Lower Neck: No enlarged lymph nodes. Thyroid: Within normal limits. Axillae: No enlarged lymph nodes. Chest Wall: Unremarkable. Lungs and Airways: -Right upper lobe triangular consolidation with bronchiectasis, (3/48), unchanged. -Right upper lobe rounded pulmonary nodule measuring 0.6 cm, (3/56), unchanged. -Right upper lobe juxta fissural consolidation, (3/81), new consolidation and bronchiectasis. Previously ground-glass opacity on CT 10/19/2020. This obscures the previously seen pulmonary nodules at the right minor fissure. -Right middle/lower lobe consolidation, (3/93), increased. New cavity with air- fluid level. -Left major fissure consolidations with nodular opacity and bronchiectasis, (3/128), not significantly changed. -Left lower lobe pulmonary nodule measuring 1.2 cm, (3/158), previously 1 cm. Pleura: Small bilateral pleural effusions, increased. Right pneumothorax, (2/35), new. Heart: Heart size is normal. Coronary artery calcifications. No pericardial effusion. Thoracic Vessels: The aorta and pulmonary arteries demonstrate normal size. No central pulmonary embolism. Mediastinum and Elaine: No enlarged lymph nodes. Esophagus: Esophagus is patulous and contains oral contrast. Large hiatal hernia. ABDOMEN: Liver: Multiple hepatic metastases. A few lesions appear increased in size. For example: -Segment 6 measuring 1.8 cm, (2/54), previously 1.1 cm. -Segment 6 inferior margin measuring at 2.6 cm, (2/61), previously 2.2 cm. Left lobe of the liver is replaced by tumor. Gallbladder: Large gallstone. Biliary ducts: Unremarkable. Pancreas: Unremarkable. Spleen: Unremarkable. Adrenal Glands: Unremarkable. Kidneys and Ureters: Unremarkable. Stomach and Bowel: Stomach is mildly distended. No small bowel obstruction. The colonic wall appears edematous. There is somewhat prominent stool in the distal colon. Small appendiculolith. Peritoneum: Small volume of ascites adjacent to the liver, new. No free air. Ventral Wall: No hernia. Anasarca. Abdominal Nodes: No retroperitoneal or mesenteric adenopathy by size criteria. Vessels: Aorta and inferior vena cava are normal in size. Circumferential calcified atherosclerotic plaque. Mesenteric arteries are patent. PELVIS: Pelvic Organs: Small volume of free fluid in the pelvis. Bladder: Decompressed. Pelvic Nodes: No enlarged lymph nodes. Miscellaneous: No inguinal hernias are seen. Bones: Mild scoliosis. DDD most pronounced at L1-L2 and L5-S1. IMPRESSION: 1. New small right pneumothorax. 2. New small cavitation in the right middle/lower lobe with air-fluid level. Worsening adjacent bronchiectasis and airspace opacity. 3. Similar metastatic pulmonary nodules were visualized. Some of the nodules are now obscured by consolidative airspace opacity 4. Small bilateral pleural effusions, increased. 5. Extensive hepatic metastatic disease. A few metastases in the right lobe of the liver are increased in size. 6. Colonic wall appears edematous. Anasarca. New small volume of ascites. Comment: Preliminary findings were discussed with Aj Rogers at 11:50 a.m. Dictated by: Elias Jain M.D. on 02/08/2021 at 11:23 Chest x-ray: Radiologist's Impression: PROCEDURE: XR CHEST 1V INDICATIONS: pneumo TECHNIQUE: One view of the chest was acquired. COMPARISON: [facility], CT, CT CHEST ABD PEL W CON, 02/08/2021, 10:50. [facility], CR, XR CHEST 1V, 05/06/2018, 15:33. [facility], CR, CHEST 1 VIEW, 11/06/2017, 13:19. FINDINGS: Surgical changes and devices: None. Lungs and pleura: Bilateral airspace and nodular opacities, these are increased compared to 2018. Small right pneumothorax seen on CT earlier today is faintly visualized. Blunting at the costophrenic angles due to small pleural effusions. Mediastinum: No midline shift appreciated. Calcified aortic arch. Heart size is within normal limits. Bones and chest wall: No suspicious bony lesions. Overlying soft tissues appear unremarkable. IMPRESSION: Small right pneumothorax seen on CT earlier today is faintly visualized. Bilateral airspace and nodular opacities. Dictated by: Elias Jain M.D. on 02/08/2021 at 12:55 Approved by: Elias Jain M.D. on 02/08/2021 at 13:00 CXR #2: Radiologist's Impression: PROCEDURE: XR CHEST 1V INDICATIONS: right pneumo TECHNIQUE: One view of the chest was acquired. COMPARISON: [facility], CR, XR CHEST 1V, 02/08/2021, 12:41. [facility], CR, XR CHEST 1V, 05/06/2018, 15:33. FINDINGS: Surgical changes and devices: None. Lungs and pleura: Bilateral consolidative and nodular opacity. No enlarging right pneumothorax. Pneumothorax seen on recent CT is not well appreciated. Blunting of the costophrenic angles. Mediastinum: Mediastinal contours appear normal. Heart size is normal. Bones and chest wall: No suspicious bony lesions. Overlying soft tissues appear unremarkable. IMPRESSION: No interval change appreciated. Small right pneumothorax seen on recent CT is not well appreciated. Bilateral consolidative in nodular opacity. Please see separately dictated same day CT chest, abdomen and pelvis. Dictated by: Elias Jain M.D. on 02/08/2021 at 14:59 ECG Data Interpretation: Normal sinus rhythm rate 109 AR interval 130 QRS [address] changes no T-wave inversions MDM Narrative Medical decision making narrative: Patient is found incidental very small pneumothorax. She is completely asymptomatic. She has had 2 chest x-rays after the procedure. The initial CT was done at 10:50 a.m. she had a repeat chest x- ray 12 50 and another 1 at 3:00 p.m. both which are completely stable. Patient has an O2 sat of 98% she has absolutely no chest pain or shortness of breath\kyle Case was discussed with Dr. Downs surgery on-call who agreed with discharge and stable pneumothorax not requiring any intervention at this time. Discharge Plan Departure Patient Disposition: Home Clinical Impression: Pneumothorax Activity Restrictions/Additional Instructions: *You have been diagnosed with pneumothorax *What to do: At this time you were incidentally found to have small collapsed appear right lung. it remains stable over 5 hours pain you are asymptomatic. Please monitor very closely for any new or worsening symptoms, please return to emergency department immediately *Continue to take medications as directed *Follow up with your primary care provider in 2-3 days *Return to ER if you should have increasing shortness of breath, any chest pain, difficulty breathing, or any new, worsening or concerning symptoms Prescriptions: No Action arina (Zingiber officinalis) 500 mg Capsule 500 mg PO BID RF: 0 cinnamon bark [Cinnamon] 500 mg Capsule 1 cap PO BID RF: 0 Votrient 200 mg Tablet 800 mg PO DAILY 30 Days Qty: 120 RF: 6 prednisone 5 mg Tablet 20 mg PO DAILY Qty: 100 RF: 1 loperamide [Imodium A-D] 2 mg Tablet 2 mg PO Q6H PRN (Reason: Diarrhea) Qty: 30 RF: 0 amlodipine 5 mg tablet 2 tab PO DAILY RF: 0 lidocaine 5 % adhesive patch,medicated 1 patch Topical Q12H PRN (Reason: Pain (Scale Score 1-3)) RF: 0 triamterene-hydrochlorothiazid 37.5-25 mg Tablet 1 tab PO DAILY PRN (Reason: LEG SWELLILNG) RF: 0 turmeric root extract 500 mg Capsule 500 mg PO DAILY RF: 0 Women's 50 Plus Daily Formula 1 cap PO DAILY RF: 0 sucralfate [Carafate] 1 gram tablet 1 g PO BID Qty: 60 RF: 0 omeprazole magnesium [Prilosec OTC] 20 mg tablet,delayed release (DR/EC) 20 mg PO DAILY Qty: 30 RF: 0 ondansetron HCl [Zofran] 4 mg tablet 4 mg PO Q6H PRN (Reason: nausea and vomiting) Qty: 10 RF: 0 Referrals: Fuad Burkett MD [Primary Care Provider] -
--- NOTE | 2021-02-08 14:50 | DI.RAD.S_ITS ---
PROCEDURE: XR CHEST 1V INDICATIONS: right pneumo TECHNIQUE: One view of the chest was acquired. COMPARISON: [facility], CR, XR CHEST 1V, 02/08/2021, 12:41. [facility], CR, XR CHEST 1V, 05/06/2018, 15:33. FINDINGS: Surgical changes and devices: None. Lungs and pleura: Bilateral consolidative and nodular opacity. No enlarging right pneumothorax. Pneumothorax seen on recent CT is not well appreciated. Blunting of the costophrenic angles. Mediastinum: Mediastinal contours appear normal. Heart size is normal. Bones and chest wall: No suspicious bony lesions. Overlying soft tissues appear unremarkable. IMPRESSION: No interval change appreciated. Small right pneumothorax seen on recent CT is not well appreciated. Bilateral consolidative in nodular opacity. Please see separately dictated same day CT chest, abdomen and pelvis. Dictated by: Elias Jain M.D. on 02/08/2021 at 14:59 Approved by: Elias Jain M.D. on 02/08/2021 at 15:00
== END 2021-02-08 15:45 | disposition home or self-care (01) ==
PROVIDERS: Emergency Provider Emergency Medicine; PCP Internal Medicine
DX: J93.9 Pneumothorax, unspecified (principal)
CPT/HCPCS: 36415; 71045; 71260; 74177; 93005; 99284

== ENCOUNTER 2021-03-01 12:56 | Inpatient (IN) | payer OTHER, MEDICAID, SELFPAY ==
[2021-03-01] VITALS (13 sets, daily range): BP systolic 143–161; BP diastolic 70–87; PULSE 56–102; RESP 16–27; TEMP 36.8; O2SAT 96–99; BMI 20.9
--- NOTE | 2021-03-01 14:09 | DI.RAD.S_ITS ---
PROCEDURE: XR CHEST 1V INDICATIONS: pneumonia TECHNIQUE: One view of the chest was acquired. COMPARISON: [facility], CR, XR CHEST 1V, 02/08/2021, 14:41. FINDINGS: Surgical changes and devices: None. Lungs and pleura: Moderate-sized right-sided pneumothorax. Nodular opacities in the lungs bilaterally slightly increased in size compared to February 08, 2021. Mediastinum: Mediastinal contours appear normal. Heart size is normal. Bones and chest wall: No suspicious bony lesions. Overlying soft tissues appear unremarkable. IMPRESSION: 1. [id number] pneumothorax. 2. Nodular opacities in lung bilaterally slightly increased in size compared to February 08, 2021 which may represent progression of multilobar pneumonia, however underlying neoplastic process is not excluded. Findings discussed with VALENTIN Hope on March 01, 2021 at 2:37 p.m. Dictated by: Amy Slaughter MD, PhD on 03/01/2021 at 14:31 Approved by: Amy Slaughter MD, PhD on 03/01/2021 at 14:38
[2021-03-01 14:16] LABS: Add Manual Diff / Slide Review NO; Basophils Absolute Auto 0 /uL (0-100); Basophils Percent Auto 0.5 % (0-2); Eosinophils Absolute Auto 300 /uL (0-450); Eosinophils Percent Auto 3.9 % (2-4); Hematocrit 30.8 % (36-46); Hemoglobin 10.3 g/dL (12.0-16.0); Lymphocytes Absolute Auto 400 /uL (1100-4500); Lymphocytes Percent Auto 5.1 % (25-40); Mean Corpuscular HGB Conc 33.3 % (30-36); Mean Corpuscular Hemoglobin 34.4 PG (26-34); Mean Corpuscular Volume 103.2 fL (80-100); Monocytes Absolute Auto 600 /uL (0-900); Monocytes Percent Auto 8.7 % (3-14); Neutrophils Absolute Auto 5900 /uL (1500-7000); Neutrophils Percent Auto 81.8 % (50-75); Platelet Count 245 X10^3/uL (150-400); Red Blood Cell Count 2.99 X10^6/uL (4.0-5.2); Red Cell Distribution Width 17.9 % (11.6-14.8); White Blood Cell Count 7.3 X10^3/uL (4.5-11.0)
[2021-03-01 14:35] LABS: Creatine Kinase 80 U/L (30-135)
[2021-03-01] MEDS: SODIUM CHLORIDE 0.9% 500 ML 1000 ML IV (14:35)
[2021-03-01 14:36] LABS: Alanine Aminotransferase 19 IU/L (<35); Albumin 3.6 g/dL (3.5-5.0); Albumin Globulin Ratio 1.2 (1.0-2.8); Alkaline Phosphatase 66 U/L (38-126); Aspartate Aminotransferase 42 IU/L (14-36); BUN Creatinine Ratio 19.8 (6-22); Bilirubin Total 0.6 mg/dL (0.2-1.3); Blood Urea Nitrogen 26 mg/dL (7-17); Calcium 9.1 mg/dL (8.4-10.2); Carbon Dioxide 20 mmol/L (22-32); Chloride 106 mmol/L (98-107); Estimated Glomerular Filt Rate 39.7 mL/min (>60); Glucose 95 mg/dL (80-110); HEMOLYSIS < 15 (0-50); Lipase 31 U/L (23-300); Potassium 4.2 mmol/L (3.4-5.1); Sodium 135 mmol/L (137-145); Total Protein 6.6 g/dL (6.3-8.2)
[2021-03-01 14:46] LABS: Troponin I < 0.012 ng/mL (0.01-0.034)
--- NOTE | 2021-03-01 15:01 | ED_ITS ---
HPI - Weakness <Law Savage PA-C - Last Filed: 03/01/21 19:44> General Chief complaint: Weakness Stated complaint: oncology symptoms Time Seen by Provider: 03/01/21 13:50 Source: patient Mode of arrival: Wheelchair Limitations: no limitations History of Present Illness HPI Narrative: Nessa is a 75 year old female with history of metastatic leomyosarcoma, radiation pneumonitis, and recent pneumonia diagnosis that presents today with chief complaint of continued nausea and vomiting, decreased appetite, inability to tolerate oral intake, and continuous cough. She was recently put on levofloxacin for a pneumonia that she recently developed. She also reports that she was diagnosed with a pneumothorax that was getting better and would like that to be checked. She denies any significant chest pain, increased difficulty breathing, abdominal pain. Related Data Home Medications Medication Instructions Recorded Confirmed amlodipine 5 mg tablet 2 tab PO DAILY 05/06/18 03/01/21 metoclopramide HCl 5 mg tablet 5 mg PO Q6HR PRN 03/01/21 03/01/21 solifenacin 10 mg tablet 10 mg PO DAILY 03/01/21 03/01/21 Previous Rx's Medication Instructions Recorded pazopanib 200 mg tablet (Votrient) 800 mg PO DAILY 30 Days #120 tab 03/15/20 dextromethorphan-guaifenesin 5 10 ml PO Q4H #120 ml 02/22/21 mg-100 mg/5 mL oral liquid (Robitussin Cough-Chest Congestion DM) levofloxacin 750 mg tablet 750 mg PO DAILY 10 Days #10 tab 02/22/21 Allergies Allergy/AdvReac Type Severity Reaction Status Date / Time Pork/Porcine Containing Allergy Intermediate SWELLING, Verified 02/08/21 12:37 Products Vomiting Review of Systems <Law Savage PA-C - Last Filed: 03/01/21 19:44> Review of Systems Narrative: As per HPI Patient History <Law Savage PA-C - Last Filed: 03/01/21 19:44> Medical History Acute bilateral low back pain with bilateral sciatica Arthritis Bleeding ulcer (2018) GERD (gastroesophageal reflux disease) History of frequent headaches History of transfusion (01/16/14) History of transfusion of packed red blood cells (07/05/14) HTN (hypertension) Hx of radiation therapy Left rib fracture (09/2017) Metastasizing leiomyoma of uterus Port-A-Cath in place Wears dentures Wears glasses Surgical History History of colonoscopy with polypectomy (03/22/14) History of esophagogastroduodenoscopy (EGD) (05/22/18) History of esophagogastroduodenoscopy (EGD) (03/22/14) History of lung biopsy (06/2014) History of total hysterectomy with bilateral salpingo-oophorectomy (BSO) (01/2014) Hx of bilateral cataract extraction (02/15/15) Hx of dilation and curettage (01/16/14) Hx of shoulder surgery (2018) Status post dilation and curettage Social History household members: family Smoking Status: Never smoker alcohol intake: never Smoking Status: Never smoker alcohol intake frequency: holidays/special occasions only Substance Use Type: does not use Exam <Law Savage PA-C - Last Filed: 03/01/21 19:44> Narrative Exam Narrative: Exam Narrative: Const General: cooperative, ill appearing, comfortable, no acute distress, well developed and well groomed Nutritional Appearance: average body habitus Orientation: alert and oriented x3 HENMT Head: normal to inspection and atraumatic Ears: hearing grossly normal bilaterally Nose: external nose normal and nares normal Face and sinus: normal facial exam Neck Neck: normal visual inspection and supple Resp Effort & Inspection: normal respiratory effort, able to speak in complete sentences, not labored, no nasal flaring and no respiratory distress, decreased lung sounds bilaterally, mild rhonchi Cardiac Regular rate and rhythm. No discernible murmurs. GI Nondistended, nontender to palpation, normal bowel sounds. Neuro General: alert, oriented x3 Cognition: normal cognition Speech: speech normal Psych Appearance: grossly normal Mental Status: mental status grossly normal Speech and Movement: speech and movement normal Mood: congruent mood Affect: normal affect Initial Vital Signs Initial Vital Signs: Vital Signs Temperature 98.3 F 03/01/21 13:17 Pulse Rate 56 L 03/01/21 13:17 Respiratory Rate 16 03/01/21 13:17 Blood Pressure 146/77 H 03/01/21 13:17 Pulse Oximetry 96 03/01/21 13:17 <Timmy Bartlett DO - Last Filed: 03/02/21 07:02> Initial Vital Signs Initial Vital Signs: Vital Signs Temperature 98.3 F 03/01/21 13:17 Pulse Rate 56 L 03/01/21 13:17 Respiratory Rate 16 03/01/21 13:17 Blood Pressure 146/77 H 03/01/21 13:17 Pulse Oximetry 96 03/01/21 13:17 Procedures <ABIMBOLA Hope Last Filed: 03/01/21 19:44> Chest Tube Chest Tube 1: Time of procedure: 16:20 Chest Tube Location: right, anterior axillary line and fifth interspace Chest Tube Prep: Yes betadine prep and sterile drapes applied Local Anesthetic: lidocaine 1% and with epi Amount of anesthesia used (mL): 10 Incision Made With: #11 blade Post Procedure: sutured to skin and sterile dressing applied Tube Drainage: none Post Procedure CXR?: Yes Patient Tolerated Procedure: Yes Course <ABIMBOLA Hope Last Filed: 03/01/21 19:44> Orders Ordered: ED Orders 03/02/21 06:00 XR chest 1V Routine 03/02/21 06:20 Complete Blood Count AUTO DIFF Routine Comprehensive Metabolic Panel Routine Sodium Chloride (Normal Saline 0.9%) 1,000 mls @ 100 mls/hr IV CONT [facility] Last Admin: 03/01/21 19:00 Dose: 100 mls/hr Documented by: JENNYFER Ceftriaxone Sodium 1,000 mg/ (Sodium Chloride) 100 mls @ 200 mls/hr IV Q24H [facility] Last Infusion: 03/01/21 22:26 Dose: 200 mls/hr Documented by: Admin: 03/01/21 21:12 Dose: 200 mls/hr Documented by: JENNYFER Azithromycin 500 mg/ Dextrose 250 mls @ 250 mls/hr IV Q24H [facility] Last Infusion: 03/01/21 23:25 Dose: 0 mls/hr Documented by: Admin: 03/01/21 22:25 Dose: 250 mls/hr Documented by: JENNYFER Lorazepam (Lorazepam 2 Mg/Ml Inj) 0.5 mg IV Q6HR PRN PRN Reason: Nausea And Vomiting Last Admin: 03/02/21 00:58 Dose: 0.5 mg Documented by: BURT Pazopanib [Votrient] (200 Mg Tablet) 800 mg PO DAILY [facility] Oxycodone HCl (Oxycodone 5 Mg/5 Ml Oral Solution) 5 mg PO Q6H PRN PRN Reason: Pain, Moderate (4-6) Pantoprazole Sodium (Pantoprazole Dr 20 Mg Tablet) 20 mg PO DAILY [facility] Sucralfate (Sucralfate 1 Gm Tablet) 1 gm PO BID SANDOVAL Last Admin: 03/01/21 21:12 Dose: 1 gm Documented by: JENNYFER Tramadol HCl (Tramadol 50 Mg Tablet) 50 mg PO TID PRN PRN Reason: Pain, Moderate (4-6) Last Admin: 03/01/21 21:12 Dose: 50 mg Documented by: JENNYFER Discontinued Medications Sodium Chloride (Normal Saline 0.9%) 500 mls @ 1,000 mls/hr IV BOLUS ONE Stop: 03/01/21 14:36 Last Infusion: 03/01/21 15:28 Dose: 0 mls/hr Documented by: Admin: 03/01/21 14:35 Dose: 1,000 mls/hr Documented by: KIKI Lidocaine/Epinephrine (Lidocaine 1% W/Epi) 4 ml INJ INTRA-OP ONE Stop: 03/01/21 15:33 Last Admin: 03/01/21 15:59 Dose: 4 ml Documented by: KIKI Ondansetron HCl (Ondansetron 4 Mg/2 Ml Inj) 4 mg IV Q6HR PRN PRN Reason: Nausea And Vomiting Vital Signs Vital signs: Vital Signs - 8 hr 03/01/21 13:17 03/01/21 13:54 03/01/21 14:00 Temperature 98.3 F Pulse Rate 56 L 102 H 85 Respiratory Rate 16 Blood Pressure 146/77 H 146/78 H Pulse Oximetry 96 97 99 03/01/21 14:30 03/01/21 15:00 03/01/21 15:30 Temperature Pulse Rate 94 H 89 92 H Respiratory Rate Blood Pressure 152/80 H 150/78 H 161/79 H Pulse Oximetry 98 98 97 03/01/21 16:01 03/01/21 16:30 03/01/21 17:00 Temperature Pulse Rate 91 H 94 H 99 H Respiratory Rate 27 H 23 Blood Pressure 153/76 H 143/87 H 143/70 H Pulse Oximetry 98 97 98 03/01/21 17:30 Temperature Pulse Rate 92 H Respiratory Rate 19 Blood Pressure 145/70 H Pulse Oximetry 97 <Timmy Tri, DO - Last Filed: 03/02/21 07:02> Orders Ordered: ED Orders 03/02/21 06:00 XR chest 1V Routine 03/02/21 06:20 Complete Blood Count AUTO DIFF Routine Comprehensive Metabolic Panel Routine Sodium Chloride (Normal Saline 0.9%) 1,000 mls @ 100 mls/hr IV CONT [facility] Last Admin: 03/01/21 19:00 Dose: 100 mls/hr Documented by: JENNYFER Ceftriaxone Sodium 1,000 mg/ (Sodium Chloride) 100 mls @ 200 mls/hr IV Q24H [facility] Last Infusion: 03/01/21 22:26 Dose: 200 mls/hr Documented by: Admin: 03/01/21 21:12 Dose: 200 mls/hr Documented by: JENNYFER Azithromycin 500 mg/ Dextrose 250 mls @ 250 mls/hr IV Q24H [facility] Last Infusion: 03/01/21 23:25 Dose: 0 mls/hr Documented by: Admin: 03/01/21 22:25 Dose: 250 mls/hr Documented by: JENNYFER Lorazepam (Lorazepam 2 Mg/Ml Inj) 0.5 mg IV Q6HR PRN PRN Reason: Nausea And Vomiting Last Admin: 03/02/21 00:58 Dose: 0.5 mg Documented by: BURT Pazopanib [Votrient] (200 Mg Tablet) 800 mg PO DAILY [facility] Oxycodone HCl (Oxycodone 5 Mg/5 Ml Oral Solution) 5 mg PO Q6H PRN PRN Reason: Pain, Moderate (4-6) Pantoprazole Sodium (Pantoprazole Dr 20 Mg Tablet) 20 mg PO DAILY [facility] Sucralfate (Sucralfate 1 Gm Tablet) 1 gm PO BID [facility] Last Admin: 03/01/21 21:12 Dose: 1 gm Documented by: JENNYFER Tramadol HCl (Tramadol 50 Mg Tablet) 50 mg PO TID PRN PRN Reason: Pain, Moderate (4-6) Last Admin: 03/01/21 21:12 Dose: 50 mg Documented by: JENNYFER Discontinued Medications Sodium Chloride (Normal Saline 0.9%) 500 mls @ 1,000 mls/hr IV BOLUS ONE Stop: 03/01/21 14:36 Last Infusion: 03/01/21 15:28 Dose: 0 mls/hr Documented by: Admin: 03/01/21 14:35 Dose: 1,000 mls/hr Documented by: KIKI Lidocaine/Epinephrine (Lidocaine 1% W/Epi) 4 ml INJ INTRA-OP ONE Stop: 03/01/21 15:33 Last Admin: 03/01/21 15:59 Dose: 4 ml Documented by: KIKI Ondansetron HCl (Ondansetron 4 Mg/2 Ml Inj) 4 mg IV Q6HR PRN PRN Reason: Nausea And Vomiting Vital Signs Vital signs: Vital Signs - 8 hr 03/01/21 13:17 03/01/21 13:54 03/01/21 14:00 Temperature 98.3 F Pulse Rate 56 L 102 H 85 Respiratory Rate 16 Blood Pressure 146/77 H 146/78 H Pulse Oximetry 96 97 99 03/01/21 14:30 03/01/21 15:00 03/01/21 15:30 Temperature Pulse Rate 94 H 89 92 H Respiratory Rate Blood Pressure 152/80 H 150/78 H 161/79 H Pulse Oximetry 98 98 97 03/01/21 16:01 03/01/21 16:30 03/01/21 17:00 Temperature Pulse Rate 91 H 94 H 99 H Respiratory Rate 27 H 23 Blood Pressure 153/76 H 143/87 H 143/70 H Pulse Oximetry 98 97 98 03/01/21 17:30 Temperature Pulse Rate 92 H Respiratory Rate 19 Blood Pressure 145/70 H Pulse Oximetry 97 MDM - Weakness <Law Savage PA-C - Last Filed: 03/01/21 19:44> Lab Data Result diagrams: 03/02/21 06:20 03/02/21 06:20 Labs: Lab Results 03/01/21 03/01/21 03/01/21 Range/Units 14:05 14:05 14:05 WBC 7.3 (4.5-11.0) X10^3/uL RBC 2.99 L (4.0-5.2) X10^6/uL Hgb 10.3 L (12.0-16.0) g/dL Hct 30.8 L (36-46) % MCV 103.2 H (80-100) fL MCH 34.4 H (26-34) PG MCHC 33.3 (30-36) % RDW 17.9 H (11.6-14.8) % Plt Count 245 (150-400) X10^3/uL Neut % (Auto) 81.8 H (50-75) % Lymph % (Auto) 5.1 L (25-40) % [place] % (Auto) 8.7 (3-14) % Eos % (Auto) 3.9 (2-4) % Baso % (Auto) 0.5 (0-2) % Neut # (Auto) 5900 (8997-2047) /uL Lymph # (Auto) 400 L (9574-5454) /uL [place] # (Auto) 600 (0-900) /uL Eos # (Auto) 300 (0-450) /uL Baso # (Auto) 0 (0-100) /uL Sodium 135 L (137-145) mmol/L Potassium 4.2 (3.4-5.1) mmol/L Chloride 106 (98-107) mmol/L Carbon Dioxide 20 L (22-32) mmol/L BUN 26 H (7-17) mg/dL Creatinine 1.31 H (0.52-1.04) mg/dL Estimated GFR 39.7 L (>60) mL/min BUN/Creatinine Ratio 19.8 (6-22) Glucose 95 (80-110) mg/dL Calcium 9.1 (8.4-10.2) mg/dL Magnesium 2.0 (1.6-2.3) mg/dL Total Bilirubin 0.6 (0.2-1.3) mg/dL AST 42 H (14-36) IU/L ALT 19 (<35) IU/L Alkaline Phosphatase 66 (38-126) U/L Total Creatine Kinase (30-135) U/L CK-MB (CK-2) CK-MB (CK-2) Rel Index Troponin I (0.01-0.034) ng/mL Total Protein 6.6 (6.3-8.2) g/dL Albumin 3.6 (3.5-5.0) g/dL Globulin 3.0 (1.7-4.1) g/dL Albumin/Globulin Ratio 1.2 (1.0-2.8) Lipase 31 (23-300) U/L SARS-CoV-2 (PCR) (Negative) 03/01/21 03/01/21 03/01/21 Range/Units 14:05 15:48 15:48 WBC (4.5-11.0) X10^3/uL RBC (4.0-5.2) X10^6/uL Hgb (12.0-16.0) g/dL Hct (36-46) % MCV (80-100) fL MCH (26-34) PG MCHC (30-36) % RDW (11.6-14.8) % Plt Count (150-400) X10^3/uL Neut % (Auto) (50-75) % Lymph % (Auto) (25-40) % [place] % (Auto) (3-14) % Eos % (Auto) (2-4) % Baso % (Auto) (0-2) % Neut # (Auto) (2320-8512) /uL Lymph # (Auto) (8195-4117) /uL [place] # (Auto) (0-900) /uL Eos # (Auto) (0-450) /uL Baso # (Auto) (0-100) /uL Sodium (137-145) mmol/L Potassium (3.4-5.1) mmol/L Chloride (98-107) mmol/L Carbon Dioxide (22-32) mmol/L BUN (7-17) mg/dL Creatinine (0.52-1.04) mg/dL Estimated GFR (>60) mL/min BUN/Creatinine Ratio (6-22) Glucose (80-110) mg/dL Calcium (8.4-10.2) mg/dL Magnesium (1.6-2.3) mg/dL Total Bilirubin (0.2-1.3) mg/dL AST (14-36) IU/L ALT (<35) IU/L Alkaline Phosphatase (38-126) U/L Total Creatine Kinase 80 (30-135) U/L CK-MB (CK-2) TNP CK-MB (CK-2) Rel Index TNP Troponin I < 0.012 (0.01-0.034) ng/mL Total Protein (6.3-8.2) g/dL Albumin (3.5-5.0) g/dL Globulin (1.7-4.1) g/dL Albumin/Globulin Ratio (1.0-2.8) Lipase (23-300) U/L SARS-CoV-2 (PCR) Negative Negative (Negative) MDM Narrative Medical decision making narrative: Differential diagnosis includes failure to thrive, pneumonia, tension pneumothorax, electrolyte abnormalities, sepsis. Patient's electrolytes were better than expected given her lack of p.o. intake over the last few days. She has only been having 1-2 episodes of vomiting per day but still maintains nausea and no oral intake. This seems like more of a failure to thrive picture at this time. Chest x-ray was done and moderate right-sided pneumothorax was noted. Pigtail chest tube was inserted. I spoke with the hospitalist as well as General surgery. We will admit this patient to the hospitalist for medical management and general surgery will consult and help manage the chest tube. All this was discussed with the patient and she verbalized understanding and agreement to the plan. <Timmy Bartlett, DO - Last Filed: 03/02/21 07:02> Lab Data Labs: Lab Results 03/01/21 03/01/21 03/01/21 Range/Units 14:05 14:05 14:05 WBC 7.3 (4.5-11.0) X10^3/uL RBC 2.99 L (4.0-5.2) X10^6/uL Hgb 10.3 L (12.0-16.0) g/dL Hct 30.8 L (36-46) % MCV 103.2 H (80-100) fL MCH 34.4 H (26-34) PG MCHC 33.3 (30-36) % RDW 17.9 H (11.6-14.8) % Plt Count 245 (150-400) X10^3/uL Neut % (Auto) 81.8 H (50-75) % Lymph % (Auto) 5.1 L (25-40) % [place] % (Auto) 8.7 (3-14) % Eos % (Auto) 3.9 (2-4) % Baso % (Auto) 0.5 (0-2) % Neut # (Auto) 5900 (6645-1711) /uL Lymph # (Auto) 400 L (1972-5622) /uL [place] # (Auto) 600 (0-900) /uL Eos # (Auto) 300 (0-450) /uL Baso # (Auto) 0 (0-100) /uL Sodium 135 L (137-145) mmol/L Potassium 4.2 (3.4-5.1) mmol/L Chloride 106 (98-107) mmol/L Carbon Dioxide 20 L (22-32) mmol/L BUN 26 H (7-17) mg/dL Creatinine 1.31 H (0.52-1.04) mg/dL Estimated GFR 39.7 L (>60) mL/min BUN/Creatinine Ratio 19.8 (6-22) Glucose 95 (80-110) mg/dL Calcium 9.1 (8.4-10.2) mg/dL Magnesium 2.0 (1.6-2.3) mg/dL Total Bilirubin 0.6 (0.2-1.3) mg/dL AST 42 H (14-36) IU/L ALT 19 (<35) IU/L Alkaline Phosphatase 66 (38-126) U/L Total Creatine Kinase (30-135) U/L CK-MB (CK-2) CK-MB (CK-2) Rel Index Troponin I (0.01-0.034) ng/mL Total Protein 6.6 (6.3-8.2) g/dL Albumin 3.6 (3.5-5.0) g/dL Globulin 3.0 (1.7-4.1) g/dL Albumin/Globulin Ratio 1.2 (1.0-2.8) Lipase 31 (23-300) U/L SARS-CoV-2 (PCR) (Negative) 03/01/21 03/01/21 03/01/21 Range/Units 14:05 15:48 15:48 WBC (4.5-11.0) X10^3/uL RBC (4.0-5.2) X10^6/uL Hgb (12.0-16.0) g/dL Hct (36-46) % MCV (80-100) fL MCH (26-34) PG MCHC (30-36) % RDW (11.6-14.8) % Plt Count (150-400) X10^3/uL Neut % (Auto) (50-75) % Lymph % (Auto) (25-40) % [place] % (Auto) (3-14) % Eos % (Auto) (2-4) % Baso % (Auto) (0-2) % Neut # (Auto) (0585-0458) /uL Lymph # (Auto) (2076-0280) /uL [place] # (Auto) (0-900) /uL Eos # (Auto) (0-450) /uL Baso # (Auto) (0-100) /uL Sodium (137-145) mmol/L Potassium (3.4-5.1) mmol/L Chloride (98-107) mmol/L Carbon Dioxide (22-32) mmol/L BUN (7-17) mg/dL Creatinine (0.52-1.04) mg/dL Estimated GFR (>60) mL/min BUN/Creatinine Ratio (6-22) Glucose (80-110) mg/dL Calcium (8.4-10.2) mg/dL Magnesium (1.6-2.3) mg/dL Total Bilirubin (0.2-1.3) mg/dL AST (14-36) IU/L ALT (<35) IU/L Alkaline Phosphatase (38-126) U/L Total Creatine Kinase 80 (30-135) U/L CK-MB (CK-2) TNP CK-MB (CK-2) Rel Index TNP Troponin I < 0.012 (0.01-0.034) ng/mL Total Protein (6.3-8.2) g/dL Albumin (3.5-5.0) g/dL Globulin (1.7-4.1) g/dL Albumin/Globulin Ratio (1.0-2.8) Lipase (23-300) U/L SARS-CoV-2 (PCR) Negative Negative (Negative) Discharge Plan Departure Patient Disposition: Admitted As Inpatient Clinical Impression: Pneumothorax Qualifiers: Pneumothorax type: unspecified pneumothorax Qualified Code(s): J93.9 - Pneumothorax, unspecified Pneumonia Qualifiers: Pneumonia type: due to unspecified organism Laterality: bilateral Lung location: unspecified part of lung Qualified Code(s): J18.9 - Pneumonia, unspeci fied organism Admit Date/Time: 03/01/21 17:37 Admit Provider: Cullen Garcia <Timmy Bartlett DO - Last Filed: 03/02/21 07:02> Cosign ED Attending Cosignature Attestation: Dr bartlett: I was involved in the plac ement of the chest tube. Patient tolerated the procedure very well. Agree with the note above. Patient will be admitted to the hospital.
[2021-03-01] MEDS: LIDOCAINE 1% W/EPI 4 ML INJ (15:59)
[2021-03-01 16:19] LABS: COVID19 -Nasal RAPID Negative (Negative)
--- NOTE | 2021-03-01 16:28 | DI.RAD.S_ITS ---
PROCEDURE: XR CHEST 1V INDICATIONS: cheat tube placement TECHNIQUE: One view of the chest was acquired. COMPARISON: [facility], , XR CHEST 1V, 03/01/2021, 14:15. FINDINGS: Surgical changes and devices: Small diameter pigtail thoracostomy tube projects over the left lung base. There is a moderate-sized right pneumothorax. Lungs and pleura: Airspace opacities are grossly similar, not well evaluated due to the patient rotation No pleural effusions or pneumothorax. Mediastinum: Mediastinal contours appear normal. Heart size is normal. Bones and chest wall: No suspicious bony lesions. Overlying soft tissues appear unremarkable. IMPRESSION: Moderate-sized right pneumothorax status post small diameter pigtail thoracostomy tube placement. Dictated by: Ac Ortiz M.D. on 03/01/2021 at 16:39 Approved by: Ac Ortiz M.D. on 03/01/2021 at 16:40
[2021-03-01 16:56] LABS: COVID19 - ADMIT (NP swab/PCR) Negative (Negative)
--- NOTE | 2021-03-01 18:45 | PC.NURSE ---
100 straw colored output in chest tube canister, increased from 20 to [address] Gonzalez
[2021-03-01] MEDS: SODIUM CHLORIDE 0.9% 1,000 ML 100 ML IV (19:00)
--- NOTE | 2021-03-01 19:03 | PM.HP.1 ---
History of Present Illness History of Present Illness Date Patient Seen: 03/01/21 Time Patient Seen: 17:00 Chief complaint: oncology symptoms phys ref. Narrative: Ms. 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 She has noted decreased appetite, nausea, vomiting. This has been occurring intermittently over the last two years, and has worsened. She does not have abdominal pain. In addition, she has noted worsening shortness of breath with exertion over the last 4-5 days. She did come to the hospital in January and was found to have a small pneumothorax, and was able to be discharged. She saw her oncologist on 02/22 who started her on levofloxacin for a pneumonia. Her CT scan was reviewed then and noted to have an enlarging pulmonary nodule and enlarging liver metastases. Her liver was read as extensive hepatic metastases and left lobe of liver is replaced by tumor and metastases in the right lobe of the liver are increased in size. She has already seen GI for these symptoms and underwent EGD which showed mild gastritis and was started on PPI and reglan. She also stopped votrient for 2 weeks and these did not help her symptoms. In the ED, workup was done and she had normal vital signs aside from mild hypertension. WBC 7.3, hgb 10.3, plts 245, BUN 26, creatinine 1.31. AST 42, ALT 19. COVID negative. She was given IV fluids. Chest xray showed moderate right pneumothorax. She had a chest tube placed. She was admitted for further treatment. Patient History Medical History Acute bilateral low back pain with bilateral sciatica Arthritis Bleeding ulcer (2017) GERD (gastroesophageal reflux disease) History of frequent headaches History of transfusion (01/16/14) History of transfusion of packed red blood cells (01/16/14) HTN (hypertension) Hx of radiation therapy Left rib fracture (09/2017) Metastasizing leiomyoma of uterus Port-A-Cath in place Wears dentures Wears glasses Surgical History History of colonoscopy with polypectomy (03/22/14) History of esophagogastroduodenoscopy (EGD) (05/22/18) History of esophagogastroduodenoscopy (EGD) (03/22/14) History of lung biopsy (06/2014) History of total hysterectomy with bilateral salpingo-oophorectomy (BSO) (01/2014) Hx of bilateral cataract extraction (02/15/15) Hx of dilation and curettage (01/16/14) Hx of shoulder surgery (2019) Status post dilation and curettage Family & Social History Social History: household members family Safety & Behavioral: Feels Safe in Current Yes Environment Been Physically Hurt or No Threatened By a Person Tobacco & Substance use: Smoking Status Never smoker alcohol intake never alcohol intake frequency holiday/special occasion Substance Use Type does not use Meds Home Medications and Allergies Home Medications Medication Instructions Recorded Confirmed Type cinnamon bark 500 mg capsule 1 cap PO BID 03/20/18 02/22/21 History (Cinnamon) raina (Zingiber officinalis) 500 500 mg PO BID 03/20/18 02/22/21 History mg capsule Women's 50 Plus Daily Formula 1 cap PO DAILY 05/06/18 02/22/21 History amlodipine 5 mg tablet 2 tab PO DAILY 05/06/18 02/22/21 History lidocaine 5 % topical patch 1 patch TOPICAL Q12H PRN 05/06/18 02/22/21 History triamterene 37.5 1 tab PO DAILY PRN 05/06/18 02/22/21 History mg-hydrochlorothiazide 25 mg tablet turmeric root extract 500 mg 500 mg PO DAILY 05/06/18 02/22/21 History capsule pazopanib 200 mg tablet (Votrient) 800 mg PO DAILY 30 Days #120 tab 03/15/20 02/22/21 Rx omeprazole magnesium 20 mg 20 mg PO DAILY #30 tab 09/03/20 02/22/21 Rx tablet,delayed release (Prilosec OTC) ondansetron HCl 4 mg tablet 4 mg PO Q6H PRN #10 tab 09/03/20 02/22/21 Rx (Zofran) sucralfate 1 gram tablet (Carafate) 1 g PO BID #60 tab 09/03/20 02/22/21 Rx loperamide 2 mg tablet (Imodium 2 mg PO Q6H PRN #30 tab 12/28/20 02/22/21 Rx A-D) prednisone 5 mg tablet 20 mg PO DAILY #100 tab 12/28/20 02/22/21 Rx dextromethorphan-guaifenesin 5 10 ml PO Q4H #120 ml 02/22/21 Rx mg-100 mg/5 mL oral liquid (Robitussin Cough-Chest Congestion DM) levofloxacin 750 mg tablet 750 mg PO DAILY 10 Days #10 tab 02/22/21 Rx Allergies Allergy/AdvReac Type Severity Reaction Status Date / Time Pork/Porcine Containing Allergy Intermediate SWELLING, Verified 02/08/21 12:37 Products Vomiting Review of Systems Review of Systems Narrative: 14 systems reviewed and negative aside from what is noted in HPI. Exam Vital Signs (past 8 hours): - 03/01/21 13:17 03/01/21 13:54 03/01/21 14:00 Temperature 98.3 F Pulse Rate 56 L 102 H 85 Respiratory Rate 16 Blood Pressure 146/77 H 146/78 H Pulse Oximetry 96 97 99 03/01/21 14:30 03/01/21 15:00 03/01/21 15:30 Temperature Pulse Rate 94 H 89 92 H Respiratory Rate Blood Pressure 152/80 H 150/78 H 161/79 H Pulse Oximetry 98 98 97 03/01/21 16:01 03/01/21 16:30 03/01/21 17:00 Temperature Pulse Rate 91 H 94 H 99 H Respiratory Rate 27 H 23 Blood Pressure 153/76 H 143/87 H 143/70 H Pulse Oximetry 98 97 98 03/01/21 17:30 03/01/21 18:00 Temperature Pulse Rate 92 H 90 Respiratory Rate 19 19 Blood Pressure 145/70 H 143/76 H Pulse Oximetry 97 97 Oxygen Delivery Method Room Air Narrative Exam Narrative: GEN: chronically ill, frail, pale HEENT: dry mucous membranes, PERRL NECK: trachea midline, no JVD CV: regular rate and rhythm, with no murmurs PULM: decreased breath sounds on right ABD: soft, nontender, nondistended, no organomegaly, normal bowel sounds EXT: warm and well perfused, trace edema NEURO: awake, alert and oriented, no focal deficits Objective Labs Result Diagrams: 03/01/21 14:05 03/01/21 14:05 Labs: Laboratory Results - last 24 hr 03/01/21 03/01/21 03/01/21 14:05 14:05 14:05 WBC 7.3 RBC 2.99 L Hgb 10.3 L Hct 30.8 L MCV 103.2 H MCH 34.4 H MCHC 33.3 RDW 17.9 H Plt Count 245 Neut % (Auto) 81.8 H Lymph % (Auto) 5.1 L [place] % (Auto) 8.7 Eos % (Auto) 3.9 Baso % (Auto) 0.5 Neut # (Auto) 5900 Lymph # (Auto) 400 L [place] # (Auto) 600 Eos # (Auto) 300 Baso # (Auto) 0 Sodium 135 L Potassium 4.2 Chloride 106 Carbon Dioxide 20 L BUN 26 H Creatinine 1.31 H Estimated GFR 39.7 L BUN/Creatinine Ratio 19.8 Glucose 95 Calcium 9.1 Magnesium 2.0 Total Bilirubin 0.6 AST 42 H ALT 19 Alkaline Phosphatase 66 Total Creatine Kinase CK-MB (CK-2) CK-MB (CK-2) Rel Index Troponin I Total Protein 6.6 Albumin 3.6 Globulin 3.0 Albumin/Globulin Ratio 1.2 Lipase 31 SARS-CoV-2 (PCR) 03/01/21 03/01/21 03/01/21 14:05 15:48 15:48 WBC RBC Hgb Hct MCV MCH MCHC RDW Plt Count Neut % (Auto) Lymph % (Auto) [place] % (Auto) Eos % (Auto) Baso % (Auto) Neut # (Auto) Lymph # (Auto) [place] # (Auto) Eos # (Auto) Baso # (Auto) Sodium Potassium Chloride Carbon Dioxide BUN Creatinine Estimated GFR BUN/Creatinine Ratio Glucose Calcium Magnesium Total Bilirubin AST ALT Alkaline Phosphatase Total Creatine Kinase 80 CK-MB (CK-2) TNP CK-MB (CK-2) Rel Index TNP Troponin I < 0.012 Total Protein Albumin Globulin Albumin/Globulin Ratio Lipase SARS-CoV-2 (PCR) Negative Negative Assessment & Plan Assessment & Plan narrative: Ms. 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 1. Moderate pneumothorax -patient largely asymptomatic at rest, with normal oxygen saturation -chest tube placed in the ED, follow xray confirmed good positioning, placed to suction -surgery consulted for management of chest tube -etiology is likely related to her metastatic disease with history of radiation 2. Pneumonia -has been on antibiotics for planned 10 day treatment with levofloxacin -with TOM, will switch to ceftriaxone and azithromycin -will attempt chest CT in AM, with contrast if kidney function improved 3. Anorexia, nausea, vomiting, failure to thrive -etiology likely related to progressively worsening cancer as evidenced by significant cancer in liver which is enlarging -will get CT scan to further evaluate for another reversible etiology -votrient is another possible etiology as has common side effects of nausea, vomiting, and anorexia -had mild gastritis on EGD, doubt this is the main cause, is on omeprazole, however acid reduction does limit votrient absorption, for now will continue on current dose 4. TOM -likely prerenal secondary to poor oral intake -continue on IV fluids\ -hold diuretics and careful with nephrotoxins 5. Metastatic leiomyosarcoma -per patient not curative -currently appears to be progressing while on treatment -patient appears to have failure to thrive and very poor prognosis -monitor liver function tests due to votrient 6. Anemia, mild -no need for transfusion -appears near baseline DVT ppx: SCDs, has pork allergy CODE: Full Proxy: Carrillo Nino, son I have utilized all available immediate resources to obtain, update, or review the patient's current medications. Quality MIPS - Admit I confirm the patient?s Advance Care Plan is present, Code status is documented, Surrogate decision maker is in patient?s record [If Yes, STOP here]: No
--- NOTE | 2021-03-01 20:01 | PM.CN ---
History of Present Illness Consult details Date Patient Seen: 03/01/21 Time Patient Seen: 17:30 Chief complaint: oncology symptoms phys ref. Reason for consult: Pneumothorax Requesting provider: Timmy Bartlett Narrative: The patient is a woman who has pneumonia and was being treated with oral antibiotics. She had a persistent cough. She came in because of generalized weakness but denied shortness of breath. On chest x-ray she was found to have a right-sided pneumothorax. A tube thoracostomy was placed in the emergency room (a small pigtail catheter). I was asked to manage this. She is being admitted for continued treatment of her pneumonia. Of significance patient also has metastatic leiomyosarcoma to both her liver and lung. She has been under treatment for this in the past. Meds Home Medications and Allergies Home Medications Medication Instructions Recorded Confirmed Type cinnamon bark 500 mg capsule 1 cap PO BID 03/20/18 02/22/21 History (Cinnamon) arina (Zingiber officinalis) 500 500 mg PO BID 03/20/18 02/22/21 History mg capsule Women's 50 Plus Daily Formula 1 cap PO DAILY 05/06/18 02/22/21 History amlodipine 5 mg tablet 2 tab PO DAILY 05/06/18 02/22/21 History lidocaine 5 % topical patch 1 patch TOPICAL Q12H PRN 05/06/18 02/22/21 History triamterene 37.5 1 tab PO DAILY PRN 05/06/18 02/22/21 History mg-hydrochlorothiazide 25 mg tablet turmeric root extract 500 mg 500 mg PO DAILY 05/06/18 02/22/21 History capsule pazopanib 200 mg tablet (Votrient) 800 mg PO DAILY 30 Days #120 tab 03/15/20 02/22/21 Rx omeprazole magnesium 20 mg 20 mg PO DAILY #30 tab 09/03/20 02/22/21 Rx tablet,delayed release (Prilosec OTC) ondansetron HCl 4 mg tablet 4 mg PO Q6H PRN #10 tab 09/03/20 02/22/21 Rx (Zofran) sucralfate 1 gram tablet (Carafate) 1 g PO BID #60 tab 09/03/20 02/22/21 Rx loperamide 2 mg tablet (Imodium 2 mg PO Q6H PRN #30 tab 12/28/20 02/22/21 Rx A-D) prednisone 5 mg tablet 20 mg PO DAILY #100 tab 12/28/20 02/22/21 Rx dextromethorphan-guaifenesin 5 10 ml PO Q4H #120 ml 02/22/21 Rx mg-100 mg/5 mL oral liquid (Robitussin Cough-Chest Congestion DM) levofloxacin 750 mg tablet 750 mg PO DAILY 10 Days #10 tab 02/22/21 Rx Allergies Allergy/AdvReac Type Severity Reaction Status Date / Time Pork/Porcine Containing Allergy Intermediate SWELLING, Verified 02/08/21 12:37 Products Vomiting Review of Systems Review of Systems Narrative: Patient's cough is much better controlled. No chest pain. No black or bloody bowel movements. Exam Vital Signs (past 8 hours): - 03/01/21 13:17 03/01/21 13:54 03/01/21 14:00 Temperature 98.3 F Pulse Rate 56 L 102 H 85 Respiratory Rate 16 Blood Pressure 146/77 H 146/78 H Pulse Oximetry 96 97 99 03/01/21 14:30 03/01/21 15:00 03/01/21 15:30 Temperature Pulse Rate 94 H 89 92 H Respiratory Rate Blood Pressure 152/80 H 150/78 H 161/79 H Pulse Oximetry 98 98 97 03/01/21 16:01 03/01/21 16:30 03/01/21 17:00 Temperature Pulse Rate 91 H 94 H 99 H Respiratory Rate 27 H 23 Blood Pressure 153/76 H 143/87 H 143/70 H Pulse Oximetry 98 97 98 03/01/21 17:30 03/01/21 18:00 03/01/21 19:26 Temperature 98.3 F Pulse Rate 92 H 90 97 H Respiratory Rate 19 19 16 Blood Pressure 145/70 H 143/76 H 159/87 H Pulse Oximetry 97 97 97 Oxygen Delivery Method Room Air Narrative Exam Narrative: Cooperative pleasant woman who appears a little older than her stated age. Breathing easily. Her eyes are nonicteric. Lungs are clear on the left. Decreased breath sounds on the right. Chest to bandage in place. Heart regular rate and rhythm. I do not appreciate a murmur gallop. Abdomen is soft. Little muscle tension of the abdominal wall. No tenderness. Objective Imaging Chest x-ray: My impression: Number with act seen on the initial x-ray along with evidence of other disease within the chest. Post tube placement x-ray does not show good expansion of the lung. Labs Result Diagrams: 03/01/21 14:05 03/01/21 14:05 Labs: Laboratory Results - last 24 hr 03/01/21 03/01/21 03/01/21 14:05 14:05 14:05 WBC 7.3 RBC 2.99 L Hgb 10.3 L Hct 30.8 L MCV 103.2 H MCH 34.4 H MCHC 33.3 RDW 17.9 H Plt Count 245 Neut % (Auto) 81.8 H Lymph % (Auto) 5.1 L [place] % (Auto) 8.7 Eos % (Auto) 3.9 Baso % (Auto) 0.5 Neut # (Auto) 5900 Lymph # (Auto) 400 L [place] # (Auto) 600 Eos # (Auto) 300 Baso # (Auto) 0 Sodium 135 L Potassium 4.2 Chloride 106 Carbon Dioxide 20 L BUN 26 H Creatinine 1.31 H Estimated GFR 39.7 L BUN/Creatinine Ratio 19.8 Glucose 95 Calcium 9.1 Magnesium 2.0 Total Bilirubin 0.6 AST 42 H ALT 19 Alkaline Phosphatase 66 Total Creatine Kinase CK-MB (CK-2) CK-MB (CK-2) Rel Index Troponin I Total Protein 6.6 Albumin 3.6 Globulin 3.0 Albumin/Globulin Ratio 1.2 Lipase 31 SARS-CoV-2 (PCR) 03/01/21 03/01/21 03/01/21 14:05 15:48 15:48 WBC RBC Hgb Hct MCV MCH MCHC RDW Plt Count Neut % (Auto) Lymph % (Auto) [place] % (Auto) Eos % (Auto) Baso % (Auto) Neut # (Auto) Lymph # (Auto) [place] # (Auto) Eos # (Auto) Baso # (Auto) Sodium Potassium Chloride Carbon Dioxide BUN Creatinine Estimated GFR BUN/Creatinine Ratio Glucose Calcium Magnesium Total Bilirubin AST ALT Alkaline Phosphatase Total Creatine Kinase 80 CK-MB (CK-2) TNP CK-MB (CK-2) Rel Index TNP Troponin I < 0.012 Total Protein Albumin Globulin Albumin/Globulin Ratio Lipase SARS-CoV-2 (PCR) Negative Negative Assessment & Plan Assessment and plan (1) Pneumothorax: Qualifiers: Pneumothorax type: unspecified pneumothorax Qualified Code(s): J93.9 - Pneumothorax, unspecified Status: Acute Assessment & Plan narrative: Given the circumstances under which this pneumothorax developed and the fact the patient is on 20 mg of prednisone daily, this may take some time to seal if it ever does. It is hard to tell if this is related to the pneumonia or to the metastatic sarcoma or to underlying lung disease. Plan to get an x-ray in the morning. Patient is breathing comfortably now. Sometimes with pneumonic processes and pneumothorax or tumor the lung will not expand as it develops a peel on the surface if the pneumothorax has been chronic. A small pneumothorax was noted incidentally on a CT on 02/08. I can better evaluate that with a repeat x-ray in the morning. Patient has extensive liver disease and lung nodules. Not sure if any other treatment is available for her sarcoma.
[2021-03-01 20:52] LABS: Creatinine Urine Random 163.1 mg/dL; Sodium Urine Random 28 mmol/L (30-90)
[2021-03-01 21:10] LABS: RBC Urine None Seen (0-5/HPF)
[2021-03-01] MEDS: SUCRALFATE 1 GM TABLET PO (21:12)
[2021-03-01] MEDS: TRAMADOL 50 MG TABLET PO (21:12)
[2021-03-01] MEDS: cefTRIAXone 1,000 MG in SODIUM CHLORIDE 0.9% 100 ML 200 ML IV (21:12)
[2021-03-01 21:19] LABS: Appearance Urine UA CLEAR; Bilirubin Urine UA NEGATIVE (NEGATIVE); Color Urine UA YELLOW; Glucose Urine UA NEGATIVE (Negative); Ketones Urine UA TRACE (NEGATIVE); Leukocyte Esterase Urine UA NEGATIVE (NEGATIVE); Nitrite Urine UA NEGATIVE (Negative); Occult Blood Urine UA TRACE-INTACT (Negative); Protein Urine UA 2+ (Negative); Specific Gravity Urine UA 1.025 (1.000-1.035); Urobilinogen Urine UA 0.2 E.U./dL (0.2)
[2021-03-01 21:30] LABS: Bacteria Urine Few (2-10); Culture Indicated Urine Cult Not Indicated; Granular Casts Urine 0-1/LPF; Hyaline Casts Urine 1-5/LPF; Squamous Epithelial Cell Urine 1-5 /HPF (0-5/HPF); WBC Urine 1-5/HPF (0-5/HPF)
[2021-03-01] MEDS: AZITHROMYCIN 500 MG in DEXTROSE 5% IN WATER 250 ML IV (22:25)
--- NOTE | 2021-03-01 23:22 | PC.NURSE ---
1840: pt arrived in [facility] from ER; able to ambulate from doorway to bed. Has Chest Tube right with 200 ml of straw colored output in chamber. Suction is at -30. No respiratory distress; RT present to set up continuous pulse ox. Son Carrillo at bedside. IV fluids initiated per order NS at 100 ml/hr. Pt on room air with sats 97-98%. Lungs diminished bilat. Dressing to right chest tube is c/d/i. Air leak noted, ER Dr was aware prior to pt coming up to floor. 2100: Pt c/o pain Right chest tube site; medicated with Tramadol. Pt asleep around 10 pm so did not wake pt to reassess pain level.
[2021-03-02] VITALS (8 sets, daily range): BP systolic 143–154; BP diastolic 79–88; PULSE 84–91; RESP 16–20; TEMP 35.9–36.8; O2SAT 95–98
[2021-03-02] MEDS: LORazepam 2 MG/ML INJ 0.5 MG IV (00:58)
--- NOTE | 2021-03-02 06:00 | DI.RAD.S_ITS ---
PROCEDURE: XR CHEST 1V INDICATIONS: monitor pneumothorax TECHNIQUE: One view of the chest was acquired. COMPARISON: [facility], CR, XR CHEST 1V, 03/01/2021, 14:15. [facility], CR, XR CHEST 1V, 02/08/2021, 14:41. [facility], CT, CT CHEST ABD PEL W CON, 02/08/2021, 10:50. [facility], CR, XR CHEST 1V, 02/08/2021, 12:41. [facility], CR, XR CHEST 1V, 03/01/2021, 16:29. FINDINGS: Surgical changes and devices: There is a pigtail thoracostomy tube on the right, partially formed. Lungs and pleura: Moderate right pneumothorax seen on the last chest x-ray is no longer conspicuous. There is a mass in the right upper lobe. There are interstitial and airspace infiltrates in the left midlung zone. Mediastinum: Mediastinal contours appear normal. Heart size is normal. Bones and chest wall: No suspicious bony lesions. Overlying soft tissues appear unremarkable. IMPRESSION: Moderate right pneumothorax is resolved. Dictated by: Fatimah Barr M.D. on 03/02/2021 at 9:51 Approved by: Fatimah Barr M.D. on 03/02/2021 at 9:56
[2021-03-02 06:33] LABS: Add Manual Diff / Slide Review NO; Basophils Absolute Auto 0 /uL (0-100); Basophils Percent Auto 0.3 % (0-2); Eosinophils Absolute Auto 200 /uL (0-450); Eosinophils Percent Auto 4.9 % (2-4); Hematocrit 25.2 % (36-46); Hemoglobin 8.3 g/dL (12.0-16.0); Lymphocytes Absolute Auto 300 /uL (1100-4500); Mean Corpuscular HGB Conc 33.1 % (30-36); Mean Corpuscular Hemoglobin 34.4 PG (26-34); Mean Corpuscular Volume 103.7 fL (80-100); Monocytes Absolute Auto 400 /uL (0-900); Monocytes Percent Auto 7.5 % (3-14); Neutrophils Absolute Auto 3800 /uL (1500-7000); Neutrophils Percent Auto 80.3 % (50-75); Platelet Count 159 X10^3/uL (150-400); Red Blood Cell Count 2.43 X10^6/uL (4.0-5.2); Red Cell Distribution Width 17.8 % (11.6-14.8); White Blood Cell Count 4.8 X10^3/uL (4.5-11.0)
[2021-03-02 06:50] LABS: Alanine Aminotransferase 14 IU/L (<35); Albumin 2.7 g/dL (3.5-5.0); Alkaline Phosphatase 53 U/L (38-126); Aspartate Aminotransferase 34 IU/L (14-36); BUN Creatinine Ratio 23.6 (6-22); Bilirubin Total 0.4 mg/dL (0.2-1.3); Blood Urea Nitrogen 26 mg/dL (7-17); Calcium 7.9 mg/dL (8.4-10.2); Carbon Dioxide 21 mmol/L (22-32); Chloride 108 mmol/L (98-107); Estimated Glomerular Filt Rate 48.6 mL/min (>60); Globulin 2.6 g/dL (1.7-4.1); Glucose 75 mg/dL (80-110); HEMOLYSIS < 15 (0-50); Potassium 4.4 mmol/L (3.4-5.1); Sodium 134 mmol/L (137-145); Total Protein 5.3 g/dL (6.3-8.2)
--- NOTE | 2021-03-02 08:56 | CM.DANOTE ---
DCP: Case received, EMR reviewed and met with patient. Introduced self and role. Was able to get some information from patient, limited, regarding her baseline activity level prior to hospitalization, as well as her current living situation. DCP assessment completed with information currently available. Patient is a 75 year old female who admitted yesterday afternoon to the care of the hospitalist team. PCP: Dr. Burkett. Payer: confirmed: [employer]/Medicaid. Patient came to the hospital via private vehicle secondary to having nausea and vomiting, as well as weakness. Patient was recently treated for pneumonia on Levaquin, as well as having a pneumothorax. Patient has history of metastatic leomyosarcoma, as well as enlargint pulmonary nodule and liver metastasis. She is a full code. Patient currently has a chest tube. According to notes, her prognosis is poor. Met with patient in her room. She was laying in bed, answered yes and no questions. She was concerned about getting her morning meds. Asked her where she goes to oncology at, she said, near the hospital. I asked her what her oncologist's name is, and she said, Dr. Floyd Jay. She stated, I call him that because I can't remember his name, and he's a new doctor. Confirmed with patient that she resides in [place] with her son, Carrillo, who is the main contact. Asked her if she used any supplies, such as a cane or walker at home, and she denied using. Patient is not driving. P: DCP to continue to follow. Will discuss patient during team rounds. She does not currently have any P.T. orders due to chest tube. Patient may benefit with home health. Will attempt to meet with son. Mariam Herrera RN/[employer]
[2021-03-02] MEDS: PANTOPRAZOLE DR 20 MG TABLET PO (09:00)
[2021-03-02] MEDS: PAZOPANIB 200 MG 800 EACH PO (09:00)
[2021-03-02] MEDS: SUCRALFATE 1 GM TABLET PO ×2 (09:00→20:17)
[2021-03-02] MEDS: SODIUM CHLORIDE 0.9% 1,000 ML 100 ML IV (09:02)
[2021-03-02] MEDS: levoFLOXacin 750 MG/150 ML PIGGYBACK 100 MG IV (12:06)
--- NOTE | 2021-03-02 14:22 | DI.RAD.S_ITS ---
PROCEDURE: XR CHEST 1V INDICATIONS: pnthx, pt accidentally pulled out pigtail, worsening? TECHNIQUE: One view of the chest was acquired. COMPARISON: [facility], CR, XR CHEST 1V, 03/02/2021, 5:53. FINDINGS: Surgical changes and devices: None. Lungs and pleura: Moderate-sized right-sided pneumothorax is noted which has developed since prior exam obtained March 02, 2021 at 5:53 a.m.. Patchy opacities in lung by laterally not significantly changed compared to prior exam. Mediastinum: Mediastinal contours appear normal. Heart size is normal. Bones and chest wall: No suspicious bony lesions. Overlying soft tissues appear unremarkable. IMPRESSION: Moderate-sized, right-sided pneumothorax. Dictated by: Amy Slaughter MD, PhD on 03/02/2021 at 14:46 Approved by: Amy Slaughter MD, PhD on 03/02/2021 at 14:47
--- NOTE | 2021-03-02 15:34 | PM.PN.1 ---
Subjective Subjective Date Patient Seen: 03/02/21 Time Patient Seen: 08:00 Interval history: She felt improved this morning with less short of breath. She has not tried eating this morning. Exam Vital Signs (past 8 hours): - 03/02/21 09:30 03/02/21 10:51 03/02/21 12:00 Temperature 97.4 F L 96.7 F L Pulse Rate 84 85 Respiratory Rate 16 18 Blood Pressure 145/82 H 153/88 H Pulse Oximetry 98 96 97 Oxygen Delivery Method Room Air Oxygen Flow Rate 0 Narrative Exam Narrative: GEN: chronically ill, frail, pale HEENT: dry mucous membranes, PERRL NECK: trachea midline, no JVD CV: regular rate and rhythm, with no murmurs PULM: decreased breath sounds on right ABD: soft, nontender, nondistended, no organomegaly, normal bowel sounds EXT: warm and well perfused, trace edema NEURO: awake, alert and oriented, no focal deficits Objective Labs Result Diagrams: 03/02/21 06:20 03/02/21 06:20 Labs: Laboratory Results - last 24 hr 03/01/21 03/01/21 03/01/21 15:48 15:48 20:25 WBC RBC Hgb Hct MCV MCH MCHC RDW Plt Count Neut % (Auto) Lymph % (Auto) [place] % (Auto) Eos % (Auto) Baso % (Auto) Neut # (Auto) Lymph # (Auto) [place] # (Auto) Eos # (Auto) Baso # (Auto) Sodium Potassium Chloride Carbon Dioxide BUN Creatinine Estimated GFR BUN/Creatinine Ratio Glucose Calcium Total Bilirubin AST ALT Alkaline Phosphatase Total Protein Albumin Globulin Albumin/Globulin Ratio Urine Color Urine Appearance Urine pH Ur Specific [place] Urine Protein Urine Glucose (UA) Urine Ketones Urine Occult Blood Urine Nitrate Urine Bilirubin Urine Urobilinogen Ur Leukocyte Esterase Urine RBC Urine WBC Ur Squamous Epith Cells Urine Bacteria Hyaline Casts Granular Casts Ur Culture Indicated? Ur Random Sodium 28 L Urine Creatinine 163.1 SARS-CoV-2 (PCR) Negative Negative 03/01/21 03/02/21 03/02/21 20:25 06:20 06:20 WBC 4.8 RBC 2.43 L Hgb 8.3 L Hct 25.2 L MCV 103.7 H MCH 34.4 H MCHC 33.1 RDW 17.8 H Plt Count 159 Neut % (Auto) 80.3 H Lymph % (Auto) 7.0 L [place] % (Auto) 7.5 Eos % (Auto) 4.9 H Baso % (Auto) 0.3 Neut # (Auto) 3800 Lymph # (Auto) 300 L [place] # (Auto) 400 Eos # (Auto) 200 Baso # (Auto) 0 Sodium 134 L Potassium 4.4 Chloride 108 H Carbon Dioxide 21 L BUN 26 H Creatinine 1.10 H Estimated GFR 48.6 L BUN/Creatinine Ratio 23.6 H Glucose 75 L Calcium 7.9 L Total Bilirubin 0.4 AST 34 ALT 14 Alkaline Phosphatase 53 Total Protein 5.3 L Albumin 2.7 L Globulin 2.6 Albumin/Globulin Ratio 1.0 Urine Color Yellow Urine Appearance Clear Urine pH 5.0 Ur Specific [place] 1.025 Urine Protein 2+ H Urine Glucose (UA) Negative Urine Ketones Trace H Urine Occult Blood Trace-intact Urine Nitrate Negative Urine Bilirubin Negative Urine Urobilinogen 0.2 Ur Leukocyte Esterase Negative Urine RBC None seen Urine WBC 1-5/hpf Ur Squamous Epith Cells 1-5 /hpf Urine Bacteria Few (2-10) H Hyaline Casts 1-5/lpf Granular Casts 0-1/lpf Ur Culture Indicated? Cult not indicated Ur Random Sodium Urine Creatinine SARS-CoV-2 (PCR) [facility] Medical History Acute bilateral low back pain with bilateral sciatica Arthritis Bleeding ulcer (2017) GERD (gastroesophageal reflux disease) History of frequent headaches History of transfusion (01/16/14) History of transfusion of packed red blood cells (01/16/14) HTN (hypertension) Hx of radiation therapy Left rib fracture (09/2017) Metastasizing leiomyoma of uterus Port-A-Cath in place Wears dentures Wears glasses Surgical History History of colonoscopy with polypectomy (03/22/14) History of esophagogastroduodenoscopy (EGD) (05/22/18) History of esophagogastroduodenoscopy (EGD) (03/22/14) History of lung biopsy (06/2014) History of total hysterectomy with bilateral salpingo-oophorectomy (BSO) (01/2014) Hx of bilateral cataract extraction (02/15/15) Hx of dilation and curettage (01/16/14) Hx of shoulder surgery (2019) Status post dilation and curettage Social History household members: family Smoking Status: Never smoker alcohol intake: never Assessment & Plan Assessment & Plan narrative: Ms. 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 1. Moderate pneumothorax -patient largely asymptomatic at rest, with normal oxygen saturation -chest tube placed in the ED, follow xray confirmed good positioning, placed to suction -surgery consulted for management of chest tube -etiology is likely related to her metastatic disease with history of radiation -this morning pneumothorax was resolving with chest tube still in place 2. Pneumonia -with improved TOM, will plan for levofloxacin for total 10 day course -will attempt chest CT in AM, with contrast if kidney function improved 3. Anorexia, nausea, vomiting, failure to thrive -etiology likely related to progressively worsening cancer as evidenced by significant cancer in liver which is enlarging -will attempt CT scan to further evaluate for another reversible etiology with TOM improved -votrient is another possible etiology as has common side effects of nausea, vomiting, and anorexia -had mild gastritis on EGD, doubt this is the main cause, is on omeprazole, will not increase omeprazole dose as votrient needs gastric acid for absorption -spoke with patient's oncologist on 03/02 who agrees that these symptoms are most likely related to cancer progression, oncology recommended continuining patient on same medications 4. TOM -likely prerenal secondary to poor oral intake -continue on IV fluids -hold diuretics and careful with nephrotoxins -improving creatinine on 03/02 5. Metastatic leiomyosarcoma -per patient not curative -currently appears to be progressing while on treatment -patient appears to have failure to thrive and very poor prognosis -liver function tests currently normal 6. Anemia, mild -no need for transfusion -appears near baseline DVT ppx: SCDs, has pork allergy CODE: Full Proxy: Carrillo Nino, son I have utilized all available immediate resources to obtain, update, or review the patient's current medications.
--- NOTE | 2021-03-02 15:41 | PC.NURSE ---
Approximately 1400, notified by CINETECHNICIAN that patient had white tubing next to her. Patient seen immediately and found to have pigtail chest tube laying next to her on the bed. Patient in no distress, dressing site immediately reinforced and covered with occlusive dressing. Patient on continuous pulse ox without changes, at 96% on RA. Dr. Leos notified and stat cxr ordered and obtained. Dr. Downs notified and states patient will need replacement of chest tube, supplies obtains and prepped for next shift. Patient remains in no distress at this time, her son at bedside. Call light within reach.
--- NOTE | 2021-03-02 15:44 | DIET.PN ---
Dietary Progress Note Assessment: 75y F admitted for oncology symptoms, failure to thrive, and pneumothorax referred to nutrition for decreased appetite, N/V. RD met c pt at bedside 11:30am, pts breakfast sitting untouched. Pt reports considerable stress in life without devulging details. States this cancer is way down on my list of worries. Pt lives c son [place] farm. Cares for two horses in barn daily, states it is taking her longer to do her chores now. Pt takes 4 medications at 6am, needs to wait 1hr before eating breakfast. Pt often picking fruit off her fruit trees for breakfast. Pt states she could eat chicken, green beans, winter squash c butter and black pepper every day and be happy. Pt has no natural teeth, had dentures which could not be fixed so needs new set. RD to adjust diet order to Dysphagia Advanced. Pt reports N/V with too quick or too large of PO intake. Pt endorses some dry mouth. Pts son prepares all meals and does all shopping. Pt is Rastafarian and does not consume pork products. Pt recently treated for gastric ulcers. Pt concerned re: poor oral intake c frequent vomiting. Does not feel this is related to her metastatic cancer. Recent imaging in January 2021 shows patulous esophagus, large hiatal hernia, increased metastatic lesions in lungs and liver, new ascites. HT: 167.6cm WT: 58.9kg (-10.3% in 6mo, moderate malnutrition) UBW: 63-65kg BMI: 21.0 (low for age) Labs: hgb 8.3 L, Cr 1.1 H, eGFR 48.6 L MNA: 5 malnourished Shiv: 15 high risk skin breakdown Nutrition Diagnosis: Moderate Chronic Malnutrition r/t eating intolerance and catabolic state aeb 10.3% unintended weight loss in 6mo (moderate), new pneumothorax requiring chest tube,imaging showing large hiatal hernia and patulous esophagus, pt has metastatic disease in lungs and liver c small ascites, pt vomits intermittently c PO intake. Interventions: 1. Adjusted pts diet to better meet her needs: Dysphagia Advanced-Heart Healthy with 1/2 portions and no pork products. 2. Using handout, counseled pt on strategies to support PO intake including: smaller more frequent meals for better tolerance, high kcal and high PRO food items, increasing tart ingredients like vinegar to encourage saliva production. Pt questions answered. Diet Order: Dysphagia Advanced Heart Healthy EER: 1750kcals (30kcal/kg per PCM), 65g PRO (1.1g/kg per PCM) Monitoring/Evaluations: POs, if POs <75% recc ONS Ensure Enlive bid
[2021-03-02] MEDS: MORPHINE 4 MG/ML INJ IV (17:00)
--- NOTE | 2021-03-02 17:43 | DI.RAD.S_ITS ---
PROCEDURE: XR CHEST 1V INDICATIONS: Follow-up after placement of new chest tube TECHNIQUE: One view of the chest was acquired. COMPARISON: [facility], CR, XR CHEST 1V, 03/02/2021, 14:26. FINDINGS: Surgical changes and devices: None. Lungs and pleura: There is been interval placement of a right pigtail catheter. Patchy opacities in the lung bilaterally are unchanged. Mediastinum: Mediastinal contours appear normal. Heart size is normal. Bones and chest wall: No suspicious bony lesions. Overlying soft tissues appear unremarkable. IMPRESSION: Interval placement of a right pigtail catheter with resolution of previously seen pneumothorax. Dictated by: Javon De Jesus M.D. on 03/02/2021 at 18:08 Approved by: Javon De Jesus M.D. on 03/02/2021 at 18:10
--- NOTE | 2021-03-02 17:44 | PM.PN.1 ---
Subjective Subjective Date Patient Seen: 03/02/21 Time Patient Seen: 17:45 Interval history: Patient is not short of breath. Her chest tube was reported out around 3:00 p.m. to me. The post for tube removal(accidental) showed a new pneumothorax which had resolved at the time of the earlier x-ray when the tube was still in place. Exam Vital Signs (past 8 hours): - 03/02/21 10:51 03/02/21 12:00 03/02/21 15:50 Temperature 96.7 F L 97.6 F Pulse Rate 85 89 Respiratory Rate 18 17 Blood Pressure 153/88 H 148/85 H Pulse Oximetry 96 97 97 Oxygen Delivery Method Room Air Oxygen Flow Rate 0 Narrative Exam Narrative: Tube is out. Decreased breath sounds on the right. Patient breathing comfortably. Is not hypoxic. Objective Imaging Chest x-ray: My impression: Earliest chest x-ray done today showed resolution of the pneumothorax with the chest tube still in place. The tube accidentally came out and a repeat x-ray after that occurred showed recall lapse of the lung. Labs Result Diagrams: 03/02/21 06:20 03/02/21 06:20 Labs: Laboratory Results - last 24 hr 03/01/21 03/01/21 03/02/21 20:25 20:25 06:20 WBC 4.8 RBC 2.43 L Hgb 8.3 L Hct 25.2 L MCV 103.7 H MCH 34.4 H MCHC 33.1 RDW 17.8 H Plt Count 159 Neut % (Auto) 80.3 H Lymph % (Auto) 7.[address] [place] % (Auto) 7.5 Eos % (Auto) 4.9 H Baso % (Auto) 0.3 Neut # (Auto) 3800 Lymph # (Auto) [address] [place] # (Auto) 400 Eos # (Auto) 200 Baso # (Auto) 0 Sodium Potassium Chloride Carbon Dioxide BUN Creatinine Estimated GFR BUN/Creatinine Ratio Glucose Calcium Total Bilirubin AST ALT Alkaline Phosphatase Total Protein Albumin Globulin Albumin/Globulin Ratio Urine Color Yellow Urine Appearance Clear Urine pH 5.0 Ur Specific [place] 1.025 Urine Protein 2+ H Urine Glucose (UA) Negative Urine Ketones Trace H Urine Occult Blood Trace-intact Urine Nitrate Negative Urine Bilirubin Negative Urine Urobilinogen 0.2 Ur Leukocyte Esterase Negative Urine RBC None seen Urine WBC 1-5/hpf Ur Squamous Epith Cells 1-5 /hpf Urine Bacteria Few (2-10) H Hyaline Casts 1-5/lpf Granular Casts 0-1/lpf Ur Culture Indicated? Cult not indicated Ur Random Sodium 28 L Urine Creatinine 163.1 03/02/21 06:20 WBC RBC Hgb Hct MCV MCH MCHC RDW Plt Count Neut % (Auto) Lymph % (Auto) [place] % (Auto) Eos % (Auto) Baso % (Auto) Neut # (Auto) Lymph # (Auto) [place] # (Auto) Eos # (Auto) Baso # (Auto) Sodium 134 L Potassium 4.4 Chloride 108 H Carbon Dioxide 21 L BUN 26 H Creatinine 1.10 H Estimated GFR 48.6 L BUN/Creatinine Ratio 23.6 H Glucose 75 L Calcium 7.9 L Total Bilirubin 0.4 AST 34 ALT 14 Alkaline Phosphatase 53 Total Protein 5.3 L Albumin 2.7 L Globulin 2.6 Albumin/Globulin Ratio 1.0 Urine Color Urine Appearance Urine pH Ur Specific [place] Urine Protein Urine Glucose (UA) Urine Ketones Urine Occult Blood Urine Nitrate Urine Bilirubin Urine Urobilinogen Ur Leukocyte Esterase Urine RBC Urine WBC Ur Squamous Epith Cells Urine Bacteria Hyaline Casts Granular Casts Ur Culture Indicated? Ur Random Sodium Urine Creatinine [facility] Medical History Acute bilateral low back pain with bilateral sciatica Arthritis Bleeding ulcer (2017) GERD (gastroesophageal reflux disease) History of frequent headaches History of transfusion (01/16/14) History of transfusion of packed red blood cells (01/16/14) HTN (hypertension) Hx of radiation therapy Left rib fracture (09/2017) Metastasizing leiomyoma of uterus Port-A-Cath in place Wears dentures Wears glasses Surgical History History of colonoscopy with polypectomy (03/22/14) History of esophagogastroduodenoscopy (EGD) (05/22/18) History of esophagogastroduodenoscopy (EGD) (03/22/14) History of lung biopsy (06/2014) History of total hysterectomy with bilateral salpingo-oophorectomy (BSO) (01/2014) Hx of bilateral cataract extraction (02/15/15) Hx of dilation and curettage (01/16/14) Hx of shoulder surgery (2019) Status post dilation and curettage Social History household members: family Smoking Status: Never smoker alcohol intake: never Assessment & Plan Assessment and plan (1) Pneumothorax: Qualifiers: Pneumothorax type: unspecified pneumothorax Qualified Code(s): J93.9 - Pneumothorax, unspecified Status: Acute Assessment & Plan narrative: Will need a new chest tube. This was discussed with the patient and she agreed to proceed. Procedure: A written consent was obtained for the procedure. Patient was given 4 mg of morphine prior to starting for pain management. Right chest overlying the anterior axillary line was prepped with chlorhexidine and alcohol. It was draped with blue towels. With palpation of the rib space that I intended anterior local anesthetic was infiltrated a full rib space below. It was infiltrated up to and over top of the rib in the space I wish to place the tube. A small augustin was made in the skin and the Cook pigtail catheter was inserted without difficulty. I aspirated free air once the tube was in place. The tube was secured to the chest wall after injecting additional local anesthetic in the subcutaneous fat and skin. This was accomplished with a 3-0 nylon. A dressing was applied. The tube was hooked to the Pleur-evac and there was active bubbling when suction was placed. The patient appeared to tolerate the procedure well. A total of 7 cc of 1% lidocaine without epinephrine was used for the local. There were no apparent complications. Chest x-ray shows partial re-expansion of the lung. Tube is in the right hemithorax. Chest x-ray ordered for the morning.
[2021-03-02] MEDS: SODIUM CHLORIDE 0.9% FLUSH 10 ML IV (20:16)
[2021-03-03 01:41] VITALS: PULSE 71; O2SAT 96
[2021-03-03 04:15] VITALS: BP 178/87; PULSE 78; RESP 20; TEMP 36.1; O2SAT 96
[2021-03-03] MEDS: TRAMADOL 50 MG TABLET PO ×2 (04:21→15:56)
[2021-03-03] MEDS: PAZOPANIB 200 MG 800 EACH PO (06:20)
[2021-03-03 06:32] LABS: BUN Creatinine Ratio 27.4 (6-22); Blood Urea Nitrogen 23 mg/dL (7-17); Calcium 7.6 mg/dL (8.4-10.2); Carbon Dioxide 22 mmol/L (22-32); Chloride 111 mmol/L (98-107); Estimated Glomerular Filt Rate > 60.0 mL/min (>60); Glucose 79 mg/dL (80-110); HEMOLYSIS < 15 (0-50); Potassium 4.5 mmol/L (3.4-5.1); Sodium 135 mmol/L (137-145)
[2021-03-03 06:50] LABS: Hematocrit 24.9 % (36-46); Hemoglobin 8.2 g/dL (12.0-16.0); Mean Corpuscular HGB Conc 32.9 % (30-36); Mean Corpuscular Hemoglobin 34.2 PG (26-34); Mean Corpuscular Volume 103.9 fL (80-100); Platelet Count 152 X10^3/uL (150-400); Red Blood Cell Count 2.39 X10^6/uL (4.0-5.2); Red Cell Distribution Width 17.5 % (11.6-14.8); White Blood Cell Count 4.5 X10^3/uL (4.5-11.0)
--- NOTE | 2021-03-03 07:55 | DI.RAD.S_ITS ---
PROCEDURE: XR CHEST 1V INDICATIONS: f/u pneumothorax TECHNIQUE: One view of the chest was acquired. COMPARISON: [facility], CR, XR CHEST 1V, 03/02/2021, 5:53. [facility], CR, XR CHEST 1V, 03/02/2021, 14:26. [facility], CR, XR CHEST 1V, 03/02/2021, 17:50. FINDINGS: Surgical changes and devices: There is a pigtail thoracostomy tube on the right. Lungs and pleura: No definitive residual pneumothorax. Patchy infiltrates are present bilaterally. Mild left basilar consolidation or atelectasis. Small pleural effusions are likely present. Mediastinum: Mediastinal contours appear normal. Heart size is normal. Bones and chest wall: No suspicious bony lesions. Overlying soft tissues appear unremarkable. IMPRESSION: No definitive residual pneumothorax. Dictated by: Fatimah Barr M.D. on 03/03/2021 at 8:28 Approved by: Fatimah Barr M.D. on 03/03/2021 at 8:30
[2021-03-03 08:18] VITALS: O2SAT 98
[2021-03-03 08:20] VITALS: BP 168/93; PULSE 81; RESP 18; TEMP 36.2; O2SAT 97
[2021-03-03] MEDS: SODIUM CHLORIDE 0.9% FLUSH 10 ML IV ×2 (08:57→20:49)
[2021-03-03] MEDS: SUCRALFATE 1 GM TABLET PO ×2 (08:57→20:48)
[2021-03-03] MEDS: SOLIFENACIN 5 MG TABLET 10 MG PO (08:57)
[2021-03-03] MEDS: PANTOPRAZOLE DR 20 MG TABLET PO (08:57)
--- NOTE | 2021-03-03 10:07 | PC.NURSE ---
Addendum entered by Laura Wang R.N. 03/03/21 14:57: Patient had a total of 66cc of yellow drainage out of her chest tube, no leaks noted. Patient has not been coughing. Son is in room visiting now. Addendum entered by Laura Wang R.N. 03/03/21 12:22: Patient up with a one person assist and voided 500cc of yellow urine in the commode. Back to bed. She is on a dysphagia diet and tolerating yogurt and hot chocolate. Voices no discomfort at this time. Original Note: Assess- Patient is alert and oriented x3 with flat affect, she states that her back hurts but has refused pain medication twice this shift. Her chest tube dressing is cdi, and suction is at 20mm continuous. She has put out 30cc of drainage in chamber. She has complained of some back pain but refuses pain medication x2. She is napping now and resting comfortably.
--- NOTE | 2021-03-03 11:22 | P.PN_ITS ---
Subjective Subjective Date Patient Seen: 03/03/21 Time Patient Seen: 08:00 Interval history: She still feels nauseous. Her breathing is feeling improved with chest tube. It became dislodged yesterday with reaccumulation of pneumothorax, and was replaced. Exam Vital Signs (past 8 hours): - 03/03/21 04:15 03/03/21 08:18 03/03/21 08:20 Temperature 97.0 F L 97.2 F L Pulse Rate 78 81 Respiratory Rate 20 18 Blood Pressure 178/87 H 168/93 H Pulse Oximetry 96 98 97 Oxygen Delivery Method Room Air Oxygen Flow Rate 0 Narrative Exam Narrative: EN: chronically ill, frail, pale HEENT: dry mucous membranes, PERRL NECK: trachea midline, no JVD CV: regular rate and rhythm, with no murmurs PULM: decreased breath sounds on right, chest tube in place ABD: soft, nontender, nondistended, no organomegaly, normal bowel sounds EXT: warm and well perfused, trace edema NEURO: awake, alert and oriented, no focal deficits Objective Labs Result Diagrams: 03/03/21 06:43 03/03/21 05:50 Labs: Laboratory Results - last 24 hr 03/03/21 03/03/21 05:50 06:43 WBC 4.5 RBC 2.39 L Hgb 8.2 L Hct 24.9 L MCV 103.9 H MCH 34.2 H MCHC 32.9 RDW 17.5 H Plt Count 152 Sodium 135 L Potassium 4.5 Chloride 111 H Carbon Dioxide 22 BUN 23 H Creatinine 0.84 Estimated GFR > 60.0 BUN/Creatinine Ratio 27.4 H Glucose 79 L Calcium 7.6 L [facility] Medical History Acute bilateral low back pain with bilateral sciatica Arthritis Bleeding ulcer (2017) GERD (gastroesophageal reflux disease) History of frequent headaches History of transfusion (01/16/14) History of transfusion of packed red blood cells (01/16/14) HTN (hypertension) Hx of radiation therapy Left rib fracture (09/2017) Metastasizing leiomyoma of uterus Port-A-Cath in place Wears dentures Wears glasses Surgical History History of colonoscopy with polypectomy (03/22/14) History of esophagogastroduodenoscopy (EGD) (05/22/18) History of esophagogastroduodenoscopy (EGD) (03/22/14) History of lung biopsy (06/2014) History of total hysterectomy with bilateral salpingo-oophorectomy (BSO) (01/2014) Hx of bilateral cataract extraction (02/15/15) Hx of dilation and curettage (01/16/14) Hx of shoulder surgery (2018) Status post dilation and curettage Social History household members: family Smoking Status: Never smoker alcohol intake: never Assessment & Plan Assessment & Plan narrative: Ms. 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 1. Moderate pneumothorax -patient largely asymptomatic at rest, with normal oxygen saturation -chest tube placed in the ED, follow xray confirmed good positioning, placed to suction -surgery consulted for management of chest tube, had to be replaced on 03/02 as it became dislodged -etiology is likely related to her metastatic disease with history of radiation -this morning pneumothorax was resolved with chest tube still in place 2. Pneumonia -with improved TOM, will plan for levofloxacin for total 10 day course -will attempt chest CT in AM, with contrast if kidney function improved 3. Anorexia, nausea, vomiting, failure to thrive -etiology likely related to progressively worsening cancer as evidenced by significant cancer in liver which is enlarging -additionally has large hiatal hernia with patulous esophagus -will consider CT scan to further evaluate for another reversible etiology when stable from respiratory standpoint -votrient is another possible etiology as has common side effects of nausea, vomiting, and anorexia -had mild gastritis on previous EGD, doubt this is the main cause, is already on omeprazole -omeprazole has interaction with votrient's absorption, would not recommend increasing this dose at this time as it may decrease efficacy of votrient, h2 receptor blockers have similar effect -spoke with patient's oncologist on 03/02 who agrees that these symptoms are most likely related to cancer progression, oncology recommended continuining patient on same medications -mobile paint specialist consulted appreciate recs -recommend follow up with oncology and GI for further recs 4. TOM -likely prerenal secondary to poor oral intake -continue on IV fluids -hold diuretics and careful with nephrotoxins -improving creatinine with IV fluids 5. Metastatic leiomyosarcoma -per patient not curative -currently appears to be progressing while on treatment -patient appears to have failure to thrive and very poor prognosis -liver function tests currently normal 6. Anemia, mild -no need for transfusion -appears near baseline DVT ppx: SCDs, has pork allergy CODE: Full Proxy: Carrillo Nino, son I have utilized all available immediate resources to obtain, update, or review the patient's current medications.
[2021-03-03] MEDS: SODIUM CHLORIDE 0.9% 1,000 ML 100 ML IV (13:11)
--- NOTE | 2021-03-03 13:51 | DIET.PN ---
Dietary Progress Note Assessment: Assessment: 75y F admitted for oncology symptoms, failure to thrive, and pneumothorax referred to nutrition for decreased appetite, N/V. RD met with pt today regarding dysphagia advanced diet tolerance. Having a difficult time eating meats and vegetables sent today. Discussed changing to mechanical soft. Discussed potential for ONS Ensure BID, not open to this at this time. Does not like Ensure. Would like to try mechanical soft. If PO continues <75% open to protein shake. Nutrition Diagnosis: Moderate Chronic Malnutrition r/t eating intolerance aeb low PO per staff and pt report Interventions: Changed diet order Diet Order: Dysphagia Mechanical Soft EER: 1750kcals (30kcal/kg per PCM), 65g PRO (1.1g/kg per PCM) Monitoring/Evaluations: if POs <75% recc protein shake BID
[2021-03-03 15:47] VITALS: BP 157/87; PULSE 85; RESP 17; TEMP 36.1; O2SAT 96
--- NOTE | 2021-03-03 19:49 | PM.PN.1 ---
Subjective Subjective Interval history: Patient feels okay. No new complaints. Not very talkative. Exam Vital Signs (past 8 hours): - 03/03/21 15:47 Temperature 97 F L Pulse Rate 85 Respiratory Rate 17 Blood Pressure 157/87 H Pulse Oximetry 96 Oxygen Delivery Method Room Air Oxygen Flow Rate 0 Narrative Exam Narrative: Good breath sounds bilaterally. Heart regular rate and rhythm. Dressing chest tube intact. Air leak noted in Pleur-evac chamber. Objective Labs Result Diagrams: 03/03/21 06:43 03/03/21 05:50 Labs: Laboratory Results - last 24 hr 03/03/21 03/03/21 05:50 06:43 WBC 4.5 RBC 2.39 L Hgb 8.2 L Hct 24.9 L MCV 103.9 H MCH 34.2 H MCHC 32.9 RDW 17.5 H Plt Count 152 Sodium 135 L Potassium 4.5 Chloride 111 H Carbon Dioxide 22 BUN 23 H Creatinine 0.84 Estimated GFR > 60.0 BUN/Creatinine Ratio 27.4 H Glucose 79 L Calcium 7.6 L PFSH Medical History Acute bilateral low back pain with bilateral sciatica Arthritis Bleeding ulcer (2017) GERD (gastroesophageal reflux disease) History of frequent headaches History of transfusion (01/16/14) History of transfusion of packed red blood cells (01/16/14) HTN (hypertension) Hx of radiation therapy Left rib fracture (09/2017) Metastasizing leiomyoma of uterus Port-A-Cath in place Wears dentures Wears glasses Surgical History History of colonoscopy with polypectomy (03/22/14) History of esophagogastroduodenoscopy (EGD) (05/22/18) History of esophagogastroduodenoscopy (EGD) (03/22/14) History of lung biopsy (06/2014) History of total hysterectomy with bilateral salpingo-oophorectomy (BSO) (01/2014) Hx of bilateral cataract extraction (02/15/15) Hx of dilation and curettage (01/16/14) Hx of shoulder surgery (2019) Status post dilation and curettage Social History household members: family Smoking Status: Never smoker alcohol intake: never Assessment & Plan Assessment and plan (1) Pneumothorax: Qualifiers: Pneumothorax type: unspecified pneumothorax Qualified Code(s): J93.9 - Pneumothorax, unspecified Status: Acute Assessment & Plan narrative: Continue chest tube to suction. Still has evidence of an air leak. Treatment of pneumonia upper hospitalist service.
[2021-03-03 20:44] VITALS: BP 163/90; PULSE 79; RESP 17; TEMP 35.8; O2SAT 96
[2021-03-04] VITALS (9 sets, daily range): BP systolic 140–175; BP diastolic 78–97; PULSE 79–88; RESP 14–18; TEMP 35.8–36.8; O2SAT 94–97
[2021-03-04] MEDS: SODIUM CHLORIDE 0.9% 1,000 ML 100 ML IV ×2 (00:01→10:32)
[2021-03-04] MEDS: PAZOPANIB 200 MG 800 EACH PO (06:34)
[2021-03-04 06:41] LABS: Hemoglobin 8.4 g/dL (12.0-16.0); Mean Corpuscular HGB Conc 33.5 % (30-36); Mean Corpuscular Hemoglobin 34.5 PG (26-34); Mean Corpuscular Volume 103.1 fL (80-100); Platelet Count 153 X10^3/uL (150-400); Red Blood Cell Count 2.43 X10^6/uL (4.0-5.2); Red Cell Distribution Width 17.2 % (11.6-14.8); White Blood Cell Count 4.6 X10^3/uL (4.5-11.0)
[2021-03-04 06:52] LABS: BUN Creatinine Ratio 26.9 (6-22); Blood Urea Nitrogen 18 mg/dL (7-17); Calcium 7.9 mg/dL (8.4-10.2); Carbon Dioxide 21 mmol/L (22-32); Chloride 113 mmol/L (98-107); Estimated Glomerular Filt Rate > 60.0 mL/min (>60); Glucose 82 mg/dL (80-110); HEMOLYSIS < 15 (0-50); Potassium 4.1 mmol/L (3.4-5.1); Sodium 135 mmol/L (137-145)
--- NOTE | 2021-03-04 07:00 | DI.RAD.S_ITS ---
PROCEDURE: XR CHEST 1V INDICATIONS: fu pneumothorax TECHNIQUE: One view of the chest was acquired. COMPARISON: [facility], CT, CT CHEST ABD PEL W CON, 02/08/2021, 10:50. [facility], CR, XR CHEST 1V, 03/02/2021, 17:50. [facility], CR, XR CHEST 1V, 03/03/2021, 7:56. FINDINGS: Surgical changes and devices: There is a stable right-sided pleural drain. Lungs and pleura: There is a minimal residual right-sided pneumothorax. Low lung volumes are noted. This causes a crowded appearance to the lung markings and limits evaluation. Stable opacity seen right mid lung Mediastinum: The cardiac contours are within normal limits. The aorta demonstrates calcification and tortuosity. Bones and chest wall: Age-appropriate bony degenerative changes are seen. Mild dextroconvex scoliotic curvature is seen. No suspicious bony lesions. Overlying soft tissues appear unremarkable. IMPRESSION: Trace residual right-sided pneumothorax, which is improving over time. Note: Dr. Downs was not available to discuss this case at the time of this dictation. Case (and difference between this report and the preliminary report) discussed by telephone with nurse Sanchez at 8:06 a.m. [place] time on March 04, 2021, who will discuss the case with Dr. Downs. Dictated by: Aristeo Lovelace M.D. on 03/04/2021 at 7:05 Transcribed by: KYLIE on 03/04/2021 at 7:17 Approved by: Aristeo Lovelace M.D. on 03/04/2021 at 8:24
[2021-03-04] MEDS: PANTOPRAZOLE DR 20 MG TABLET PO (09:07)
[2021-03-04] MEDS: SOLIFENACIN 5 MG TABLET 10 MG PO (09:07)
[2021-03-04] MEDS: SUCRALFATE 1 GM TABLET PO ×2 (09:07→20:40)
[2021-03-04] MEDS: SODIUM CHLORIDE 0.9% FLUSH 10 ML IV ×2 (09:08→20:40)
[2021-03-04] MEDS: CYANOCOBALAMIN 1,000 MCG/ML VIAL 1000 MCG IM (09:43)
[2021-03-04] MEDS: MULTIVIT,CALC,MINS/IRON/FOLIC 1 TABLET 1 TAB PO (09:43)
--- NOTE | 2021-03-04 10:21 | PC.NURSE ---
Addendum entered by Laura Wang R.N. 03/04/21 14:41: into see patient. He increased the CT to 30mm of suction. She is awake and visiting with her son at this time. Addendum entered by Laura Wang R.N. 03/04/21 10:57: Patient had a 50ml emesis and ativan given, helpful. Patient voided 300ml of yellow urine. Original Note: Patients chest tube at 20mm of suction, she has yellow fluid in chamber and is putting out minimal drainage. Chest tube site and dressing is cdi. Hooked up to continuous suction and patient denies nausea or pain. Given Vit B12 injection in r.deltoid as she is left handed. Up with one person assist and patient is voiding on bsc. Ate better at breakfast this morning. Resting supine in bed.
[2021-03-04] MEDS: LORazepam 2 MG/ML INJ 0.5 MG IV (10:46)
--- NOTE | 2021-03-04 11:52 | PM.PN.1 ---
Subjective Subjective Interval history: patient somnolent Exam Vital Signs (past 8 hours): - 03/04/21 04:58 03/04/21 08:00 03/04/21 08:03 Temperature 97.6 F 96.7 F L Pulse Rate 79 80 Respiratory Rate 18 18 Blood Pressure 145/78 H 152/91 H Pulse Oximetry 97 96 96 Oxygen Delivery Method Room Air Oxygen Flow Rate 0 Narrative Exam Narrative: dressing intact Objective Imaging Chest x-ray: My impression: The tube has not appear to have moved. there is a very tiny apical pneumothorax. Labs Result Diagrams: 03/04/21 06:17 03/04/21 06:17 Labs: Laboratory Results - last 24 hr 03/04/21 03/04/21 06:17 06:17 WBC 4.6 RBC 2.43 L Hgb 8.4 L Hct 25.0 L MCV 103.1 H MCH 34.5 H MCHC 33.5 RDW 17.2 H Plt Count 153 Sodium 135 L Potassium 4.1 Chloride 113 H Carbon Dioxide 21 L BUN 18 H Creatinine 0.67 Estimated GFR > 60.0 BUN/Creatinine Ratio 26.9 H Glucose 82 Calcium 7.9 L PFSH Medical History Acute bilateral low back pain with bilateral sciatica Arthritis Bleeding ulcer (2017) GERD (gastroesophageal reflux disease) History of frequent headaches History of transfusion (01/16/14) History of transfusion of packed red blood cells (01/16/14) HTN (hypertension) Hx of radiation therapy Left rib fracture (09/2017) Metastasizing leiomyoma of uterus Port-A-Cath in place Wears dentures Wears glasses Surgical History History of colonoscopy with polypectomy (03/22/14) History of esophagogastroduodenoscopy (EGD) (05/22/18) History of esophagogastroduodenoscopy (EGD) (03/22/14) History of lung biopsy (06/2014) History of total hysterectomy with bilateral salpingo-oophorectomy (BSO) (01/2014) Hx of bilateral cataract extraction (02/15/15) Hx of dilation and curettage (01/16/14) Hx of shoulder surgery (2019) Status post dilation and curettage Social History household members: family Smoking Status: Never smoker alcohol intake: never Assessment & Plan Assessment and plan (1) Pneumothorax: Qualifiers: Pneumothorax type: unspecified pneumothorax Qualified Code(s): J93.9 - Pneumothorax, unspecified Status: Acute Assessment & Plan narrative: Increased suction to 30 cm water. Repeat x-ray in the morning. Lung clearly is not sealed yet.
[2021-03-04] MEDS: levoFLOXacin 250 MG TABLET 750 MG PO (13:00)
--- NOTE | 2021-03-04 15:37 | CM.DPC ---
DCP: continued: Case received, EMR reviewed and noted the complexity of pt's medical issues. Met now with pt and her son Carrillo, with whom she lives. Pt was found lying in bed, alert and joining in the conversation as her son Carrillo filled in her history. Pt is currently being treated by hospitalist team. Dr. Gannon is seeing pt for first time today, his note is not yet available but did alert him to presence on son Carrillo. Dr. Downs is managing the chest tube to suction and states in his note today that the lung is not yet sealed. Pt and son confirm that she has been under oncology care at the [facility] in [place] for several years and have seen multiple oncologists as these providers have changed. Pt has now been assigned to a new oncologist and it sounds like she has seen him once. Both confirm that they know pt is under a palliative oncology program, my cancer is not curable but say that pt seems to have done will and improved over the years with this approach. Pt follows closely with Dr. Burkett and both express [facility] is his option and his care and await his return to clinic next week. Brand Planner did see pt today as pt is very troubled by her lack of appetite and both she and Carrillo see this as related to stress. Offered the idea that this may be something to follow up with in clinic with Dr. Burkett. Both Carrillo and pt anticipate being able to go home at d/c and followup with the various providers. Carrillo says he is usually here to visit about noon. Will plan to check in with them again tomorrow and anticipate Dr. Gannon will give some direction for DCP team in [place] tomorrow.
--- NOTE | 2021-03-04 16:46 | PM.PN.1 ---
Subjective Subjective Date Patient Seen: 03/04/21 Interval history: Patient has right lung chest tube which is being managed by surgery. Major source of complaint of patient and family is anorexia, nausea and vomiting. She has metastatic disease to the liver. She also has large hiatal hernia with history of gastric ulcers which healed on repeat EGD. She feels like food gets stuck in the pocket and comes up into the back of her throat. Exam Vital Signs (past 8 hours): - 03/04/21 12:00 03/04/21 16:00 03/04/21 16:10 Temperature 96.7 F L 97.7 F Pulse Rate 85 86 Respiratory Rate 18 16 Blood Pressure 175/93 H 173/93 H 169/93 H Pulse Oximetry 96 97 Oxygen Delivery Method Room Air Oxygen Flow Rate 0 Narrative Exam Narrative: General: Alert, diminished affect, no acute distress Lungs: Clear Heart: Regular rhythm Extremities: No edema Objective Labs Result Diagrams: 03/04/21 06:17 03/04/21 06:17 Labs: Laboratory Results - last 24 hr 03/04/21 03/04/21 06:17 06:17 WBC 4.6 RBC 2.43 L Hgb 8.4 L Hct 25.0 L MCV 103.1 H MCH 34.5 H MCHC 33.5 RDW 17.2 H Plt Count 153 Sodium 135 L Potassium 4.1 Chloride 113 H Carbon Dioxide 21 L BUN 18 H Creatinine 0.67 Estimated GFR > 60.0 BUN/Creatinine Ratio 26.9 H Glucose 82 Calcium 7.9 L PFSH Medical History Acute bilateral low back pain with bilateral sciatica Arthritis Bleeding ulcer (2017) GERD (gastroesophageal reflux disease) History of frequent headaches History of transfusion (01/16/14) History of transfusion of packed red blood cells (01/16/14) HTN (hypertension) Hx of radiation therapy Left rib fracture (09/2017) Metastasizing leiomyoma of uterus Port-A-Cath in place Wears dentures Wears glasses Surgical History History of colonoscopy with polypectomy (03/22/14) History of esophagogastroduodenoscopy (EGD) (05/22/18) History of esophagogastroduodenoscopy (EGD) (03/22/14) History of lung biopsy (06/2014) History of total hysterectomy with bilateral salpingo-oophorectomy (BSO) (01/2014) Hx of bilateral cataract extraction (02/15/15) Hx of dilation and curettage (01/16/14) Hx of shoulder surgery (2019) Status post dilation and curettage Social History household members: family Smoking Status: Never smoker alcohol intake: never Assessment & Plan Assessment & Plan narrative: alice Nino is a 75W with 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 1. Moderate pneumothorax -patient largely asymptomatic at rest, with normal oxygen saturation -chest tube placed in the ED, follow xray confirmed good positioning, placed to suction -surgery consulted for management of chest tube, had to be replaced on 03/02 as it became dislodged -etiology is likely related to her metastatic disease with history of radiation -continue CT management per surgery 2. Pneumonia -continue Levaquin 750 mg p.o. q.48h to complete 10 day course 3. Anorexia, nausea, vomiting, failure to thrive -etiology likely related to progressively worsening cancer as evidenced by significant cancer in liver which is enlarging -additionally has large hiatal hernia with patulous esophagus -votrient is another possible etiology as has common side effects of nausea, vomiting, and anorexia but she has been on it for 5 years -omeprazole has interaction with votrient's absorption, would not recommend increasing this dose at this time as it may decrease efficacy of votrient, h2 receptor blockers have similar effect -spoke with patient's oncologist on 03/02 who agrees that these symptoms are most likely related to cancer progression, oncology recommended continuining patient on same medications -zipper sewing machine operator consulted appreciate recs -recommend follow up with oncology and GI for further recs -03/04 started metoclopramide 5 mg t.i.d. a.c. as patient's son brought up whether motility agent may help symptoms, and this is worth a try as she does have sensation of food getting stuck or coming up 4. TOM, pre renal, resolved -likely prerenal secondary to poor oral intake 5. Metastatic leiomyosarcoma -currently appears to be progressing while on treatment -patient appears to have failure to thrive and very poor prognosis -liver function tests currently normal 6. Anemia, mild -no need for transfusion -appears near baseline 7. Depression -patient was recently started on sertraline 50 mg q.d. by her PCP, resume sertraline DVT ppx: SCDs, has pork allergy CODE: Full Proxy: Carrillo Nino, son
[2021-03-04] MEDS: METOCLOPRAMIDE HCL 5 MG TABLET PO (17:02)
[2021-03-04] MEDS: SERTRALINE 50 MG TABLET PO (20:40)
[2021-03-05] VITALS (7 sets, daily range): BP systolic 151–175; BP diastolic 93–108; PULSE 87–94; RESP 16–18; TEMP 35.6–36.6; O2SAT 93–99
[2021-03-05] MEDS: PAZOPANIB 200 MG 800 EACH PO (05:52)
[2021-03-05] MEDS: MULTIVIT,CALC,MINS/IRON/FOLIC 1 TABLET 1 TAB PO (09:50)
[2021-03-05] MEDS: METOCLOPRAMIDE HCL 5 MG TABLET PO ×2 (09:50→16:54)
[2021-03-05] MEDS: SODIUM CHLORIDE 0.9% FLUSH 10 ML IV ×2 (09:50→21:09)
[2021-03-05] MEDS: PANTOPRAZOLE DR 20 MG TABLET PO (09:50)
[2021-03-05] MEDS: SOLIFENACIN 5 MG TABLET 10 MG PO (09:50)
[2021-03-05] MEDS: SUCRALFATE 1 GM TABLET PO ×2 (09:51→21:09)
--- NOTE | 2021-03-05 10:46 | PC.NURSE ---
Patients chest tube dressing wnl, she denies pain or nausea. Chest tube to 30mm of suction and she is tolerating this well. She has yellow fluid in chamber of chest tube. Patient has color to her face and did eat better at breakfast this am . She is resting now.
--- NOTE | 2021-03-05 11:07 | DI.RAD.S_ITS ---
PROCEDURE: XR CHEST 1V INDICATIONS: f/u pneumothorax with chest tube TECHNIQUE: One view of the chest was acquired. COMPARISON: [facility], , XR CHEST 1V, 03/04/2021, 6:13. FINDINGS: Surgical changes and devices: Chest tube projects over the right upper thorax, as before. Lungs and pleura: Increased moderate patchy opacity within the left mid and lower lung. No change in patchy opacity within the right mid and lower lung. No pleural effusions or pneumothorax. Mediastinum: Mediastinal contours appear normal. Heart size is normal. Bones and chest wall: No suspicious bony lesions. Overlying soft tissues appear unremarkable. IMPRESSION: 1. No evidence of pneumothorax. 2. Increased left lung pneumonia. Dictated by: Merari Glaser M.D. on 03/05/2021 at 11:25 Approved by: Merari Glaser M.D. on 03/05/2021 at 11:26
--- NOTE | 2021-03-05 11:29 | PM.PN.1 ---
Subjective Subjective Date Patient Seen: 03/05/21 Time Patient Seen: 11:29 Interval history: Patient feels a little better today. Breathing comfortably. Exam Vital Signs (past 8 hours): - 03/05/21 05:00 03/05/21 09:00 03/05/21 09:33 Temperature 96.8 F L 96.1 F L Pulse Rate 89 93 H 88 Respiratory Rate 18 16 18 Blood Pressure 172/93 H 159/98 H Pulse Oximetry 94 93 Oxygen Delivery Method Room Air Oxygen Flow Rate 0 Narrative Exam Narrative: Equal breath sounds bilaterally. Heart regular rate and rhythm without murmur gallop. Dressing intact. There is no movement of the water seal chamber and no bubbling. Objective Labs Result Diagrams: 03/04/21 06:17 03/04/21 06:17 [facility] Medical History Acute bilateral low back pain with bilateral sciatica Arthritis Bleeding ulcer (2017) GERD (gastroesophageal reflux disease) History of frequent headaches History of transfusion (01/16/14) History of transfusion of packed red blood cells (01/16/14) HTN (hypertension) Hx of radiation therapy Left rib fracture (09/2017) Metastasizing leiomyoma of uterus Port-A-Cath in place Wears dentures Wears glasses Surgical History History of colonoscopy with polypectomy (03/22/14) History of esophagogastroduodenoscopy (EGD) (05/22/18) History of esophagogastroduodenoscopy (EGD) (03/22/14) History of lung biopsy (06/2014) History of total hysterectomy with bilateral salpingo-oophorectomy (BSO) (01/2014) Hx of bilateral cataract extraction (02/15/15) Hx of dilation and curettage (01/16/14) Hx of shoulder surgery (2018) Status post dilation and curettage Social History household members: family Smoking Status: Never smoker alcohol intake: never Assessment & Plan Assessment and plan (1) Pneumothorax: Qualifiers: Pneumothorax type: unspecified pneumothorax Qualified Code(s): J93.9 - Pneumothorax, unspecified Status: Acute Assessment & Plan narrative: Chest x-ray ordered. If her lung is expanded will remove suction and placed to water seal. Chest x-ray in the morning.
--- NOTE | 2021-03-05 16:05 | PM.PN.1 ---
Subjective Subjective Date Patient Seen: 03/05/21 Interval history: Patient has right lung chest tube which is being managed by surgery. Major source of complaint of patient and family is anorexia, nausea and vomiting. She has metastatic disease to the liver. She also has large hiatal hernia with history of gastric ulcers which healed on repeat EGD. She feels like food gets stuck in the pocket and comes up into the back of her throat. Patient was started on metoclopramide yesterday's gastric motility agent after discussion with her son. She states she feels better today though unable to specify in what way Exam Vital Signs (past 8 hours): - 03/05/21 09:00 03/05/21 09:33 03/05/21 14:28 Temperature 96.1 F L 96.1 F L Pulse Rate 93 H 88 94 H Respiratory Rate 16 18 16 Blood Pressure 159/98 H 151/108 H Pulse Oximetry 93 99 Oxygen Delivery Method Room Air Oxygen Flow Rate 0 Narrative Exam Narrative: General: Alert, diminished affect Lungs: Clear bilaterally Extremities: No edema Objective Labs Result Diagrams: 03/04/21 06:17 03/04/21 06:17 [facility] Medical History Acute bilateral low back pain with bilateral sciatica Arthritis Bleeding ulcer (2017) GERD (gastroesophageal reflux disease) History of frequent headaches History of transfusion (01/16/14) History of transfusion of packed red blood cells (01/16/14) HTN (hypertension) Hx of radiation therapy Left rib fracture (09/2017) Metastasizing leiomyoma of uterus Port-A-Cath in place Wears dentures Wears glasses Surgical History History of colonoscopy with polypectomy (03/22/14) History of esophagogastroduodenoscopy (EGD) (05/22/18) History of esophagogastroduodenoscopy (EGD) (03/22/14) History of lung biopsy (06/2014) History of total hysterectomy with bilateral salpingo-oophorectomy (BSO) (01/2014) Hx of bilateral cataract extraction (02/15/15) Hx of dilation and curettage (01/16/14) Hx of shoulder surgery (2018) Status post dilation and curettage Social History household members: family Smoking Status: Never smoker alcohol intake: never Assessment & Plan Assessment & Plan narrative: 75W with 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 1. Moderate pneumothorax -patient largely asymptomatic at rest, with normal oxygen saturation -chest tube placed in the ED, follow xray confirmed good positioning, placed to suction -surgery consulted for management of chest tube, had to be replaced on 03/02 as it became dislodged -etiology is likely related to her metastatic disease with history of radiation -continue CT management per surgery 2. Chronic bronchiectasis and pneumonia with underlying metastatic disease -outpatient CT 01/2821 showed multiple areas of right lung consolidation, bronchiectasis, nodules and cavitary lesion as well as left lung nodule nodules, consolidations and bronchiectasis likely representing underlying metastatic disease -patient is not having fevers, cough for hypoxia -check sister radiology report notes increased consolidation left lung although clinically patient is not showing increased pulmonary symptoms -currently on Levaquin 750 mg p.o. q.48h to complete 10 day course, her creatinine clearance is just under 50, discussed with pharmacy to change Levaquin to Q 24 hours to finish 10 day course 3. Anorexia, nausea, vomiting, failure to thrive -etiology likely related to progressively worsening cancer as evidenced by significant cancer in liver which is enlarging -additionally has large hiatal hernia with patulous esophagus -votrient is another possible etiology as has common side effects of nausea, vomiting, and anorexia but she has been on it for 5 years -omeprazole has interaction with votrient's absorption, would not recommend increasing this dose at this time as it may decrease efficacy of votrient, h2 receptor blockers have similar effect -spoke with patient's oncologist on 03/02 who agrees that these symptoms are most likely related to cancer progression, oncology recommended continuining patient on same medications -cylinder die machine helper consulted appreciate recs -recommend follow up with oncology and GI for further recs -03/04 started metoclopramide 5 mg t.i.d. a.c. as patient's son brought up whether motility agent may help symptoms, and this is worth a try as she does have sensation of food getting stuck or coming up 4. TOM, pre renal, resolved -likely prerenal secondary to poor oral intake 5. Metastatic leiomyosarcoma -currently appears to be progressing while on treatment -patient appears to have failure to thrive and very poor prognosis -liver function tests currently normal 6. Anemia, mild -no need for transfusion -appears near baseline 7. Depression -patient was recently started on sertraline 50 mg q.d. by her PCP, resume sertraline DVT ppx: SCDs, has pork allergy CODE: Full Proxy: Carrillo Nino, son Patient is medically stable for discharge when chest tube is out and cleared by surgery to go home.
[2021-03-05] MEDS: levoFLOXacin 250 MG TABLET 750 MG PO (16:55)
[2021-03-05] MEDS: SERTRALINE 50 MG TABLET PO (21:09)
[2021-03-06] VITALS (8 sets, daily range): BP systolic 149–179; BP diastolic 88–99; PULSE 80–91; RESP 15–18; TEMP 36.1–36.7; O2SAT 96–98
[2021-03-06] MEDS: PAZOPANIB 200 MG 800 EACH PO (05:57)
--- NOTE | 2021-03-06 06:00 | DI.RAD.S_ITS ---
PROCEDURE: XR CHEST 1V INDICATIONS: f/u. Tube to water seal. Any pneumothorax? TECHNIQUE: One view of the chest was acquired. COMPARISON: [facility], CR, XR CHEST 1V, 03/03/2021, 7:56. [facility], CR, XR CHEST 1V, 03/02/2021, 5:53. [facility], CR, XR CHEST 1V, 03/02/2021, 17:50. [facility], CR, XR CHEST 1V, 03/04/2021, 6:13. [facility], CR, XR CHEST 1V, 03/05/2021, 11:12. FINDINGS: Surgical changes and devices: There is a pigtail catheter in the right hemithorax. Lungs and pleura: No residual pneumothorax. Bilateral airspace opacities are present, unchanged. Small pleural effusions are present, unchanged. Mediastinum: Mediastinal contours appear normal. Heart size is normal. Bones and chest wall: No suspicious bony lesions. Overlying soft tissues appear unremarkable. IMPRESSION: 1. No residual or recurrent pneumothorax. 2. Bilateral airspace opacities may be pneumonia or atelectasis. 3. Small pleural effusions bilaterally. Dictated by: Fatimah Barr M.D. on 03/06/2021 at 8:20 Approved by: Fatimah Barr M.D. on 03/06/2021 at 8:23
[2021-03-06] MEDS: SODIUM CHLORIDE 0.9% FLUSH 10 ML IV (08:42)
[2021-03-06] MEDS: SUCRALFATE 1 GM TABLET PO ×2 (08:42→20:12)
[2021-03-06] MEDS: SOLIFENACIN 5 MG TABLET 10 MG PO (08:42)
[2021-03-06] MEDS: MULTIVIT,CALC,MINS/IRON/FOLIC 1 TABLET 1 TAB PO (08:42)
[2021-03-06] MEDS: METOCLOPRAMIDE HCL 5 MG TABLET PO ×3 (08:42→18:04)
[2021-03-06] MEDS: PANTOPRAZOLE DR 20 MG TABLET PO (08:42)
--- NOTE | 2021-03-06 10:05 | DI.RAD.S_ITS ---
PROCEDURE: XR CHEST 1V INDICATIONS: chest tube removal TECHNIQUE: One view of the chest was acquired. COMPARISON: [facility], CR, XR CHEST 1V, 03/06/2021, 5:05. FINDINGS: Surgical changes and devices: None. Lungs and pleura: Small right-sided pneumothorax following removal of right-sided chest tube. Patchy airspace opacities in the lungs bilaterally have increased in size. Small to moderate-sized left-sided pleural effusion is increased in size. Mediastinum: Mediastinal contours appear normal. Heart size is normal. Bones and chest wall: No suspicious bony lesions. Overlying soft tissues appear unremarkable. IMPRESSION: 1. Small right-sided pneumothorax. 2. Progression of bilateral airspace opacities and small to moderate-sized left pleural fluid collection. Dictated by: Amy Slaughter MD, PhD on 03/06/2021 at 10:35 Approved by: Amy Slaughter MD, PhD on 03/06/2021 at 10:36
--- NOTE | 2021-03-06 13:30 | DI.RAD.S_ITS ---
PROCEDURE: XR CHEST 1V INDICATIONS: re-assess pneumothorax TECHNIQUE: One view of the chest was acquired. COMPARISON: [facility], , XR CHEST 1V, 03/06/2021, 10:09. FINDINGS: Surgical changes and devices: None. Lungs and pleura: Small right-sided pneumothorax is stable compared March 06, 2021 at 10:09 a.m. patchy bilateral lung opacities and left-sided pleural effusion are not significantly changed.. Mediastinum: Mediastinal contours appear normal. Heart size is normal. Bones and chest wall: No suspicious bony lesions. Overlying soft tissues appear unremarkable. IMPRESSION: Stable small right-sided pneumothorax. Dictated by: Amy Slaughter MD, PhD on 03/06/2021 at 13:51 Approved by: Amy Slaughter MD, PhD on 03/06/2021 at 13:52
--- NOTE | 2021-03-06 14:02 | PM.PN.1 ---
Subjective Subjective Date Patient Seen: 03/06/21 Time Patient Seen: 14:02 Interval history: No acute overnight events. Chest tube was moved to water seal yesterday. No difficulty breathing. Exam Vital Signs (past 8 hours): - 03/06/21 07:12 03/06/21 08:00 03/06/21 12:00 Temperature 96.9 F L 97.3 F L Pulse Rate 91 H 89 Respiratory Rate 16 16 Blood Pressure 179/99 H 175/97 H Pulse Oximetry 96 97 98 Oxygen Delivery Method Room Air Oxygen Flow Rate 0 Narrative Exam Narrative: General adult female alert oriented no acute distress Chest nonlabored respirations. Pigtail chest catheter without air leak removed Objective Labs Result Diagrams: 03/04/21 06:17 03/04/21 06:17 [facility] Medical History Acute bilateral low back pain with bilateral sciatica Arthritis Bleeding ulcer (2017) GERD (gastroesophageal reflux disease) History of frequent headaches History of transfusion (01/16/14) History of transfusion of packed red blood cells (01/16/14) HTN (hypertension) Hx of radiation therapy Left rib fracture (09/2017) Metastasizing leiomyoma of uterus Port-A-Cath in place Wears dentures Wears glasses Surgical History History of colonoscopy with polypectomy (03/22/14) History of esophagogastroduodenoscopy (EGD) (05/22/18) History of esophagogastroduodenoscopy (EGD) (03/22/14) History of lung biopsy (06/2014) History of total hysterectomy with bilateral salpingo-oophorectomy (BSO) (01/2014) Hx of bilateral cataract extraction (02/15/15) Hx of dilation and curettage (01/16/14) Hx of shoulder surgery (2018) Status post dilation and curettage Social History household members: family Smoking Status: Never smoker alcohol intake: never Assessment & Plan Assessment & Plan narrative: 75-year-old female with a right pneumothorax. X-ray on water seal demonstrates no pneumothorax tube was removed there was a small residual pneumothorax post removal. A repeat film 5 hours later demonstrates stable small right pneumothorax. Nonlabored respirations breathing comfortably. May discharge with return precautions should she develop worsening shortness of breath.
--- NOTE | 2021-03-06 14:26 | P.PN_ITS ---
Subjective Subjective Date Patient Seen: 03/06/21 Time Patient Seen: 14:35 Interval history: Patient denies chest pain, mild cough, no dyspnea today. Chest tube was removed by surgery. Repeat CXR after showing small recurrence which was stable on repeat. Exam Vital Signs (past 8 hours): - 03/06/21 07:12 03/06/21 08:00 03/06/21 12:00 Temperature 96.9 F L 97.3 F L Pulse Rate 91 H 89 Respiratory Rate 16 16 Blood Pressure 179/99 H 175/97 H Pulse Oximetry 96 97 98 Oxygen Delivery Method Room Air Oxygen Flow Rate 0 Narrative Exam Narrative: GEN: chronically ill, frail, pale HEENT: dry mucous membranes, PERRL NECK: trachea midline, no JVD CV: regular rate and rhythm, with no murmurs PULM: chest tube in place on R, no leak, good air movement no wheezes rhonchi or rales. ABD: soft, nontender, nondistended, no organomegaly, normal bowel sounds EXT: nonpitting bilateral lower extremity trace edema, no joint effusions NEURO: awake, alert and oriented, no focal deficits Objective Imaging Chest x-ray: My impression: Stable R pneumothorax after chest tube removal. Radiologist's impression: Patient: Nessa Nino [facility]#: [id number]: [id number]:[id number]/Sex: 75 / FDate of Service: 03/06/21Loc: [id number] Number: [id number] Procedure: XR chest 1V Ordering Provider: Ruperto Lucas D.O. PROCEDURE: XR CHEST 1V INDICATIONS: re-assess pneumothorax TECHNIQUE: One view of the chest was acquired. COMPARISON: [facility], , XR CHEST 1V, 03/06/2021, 10:09. FINDINGS: Surgical changes and devices: None. Lungs and pleura: Small right-sided pneumothorax is stable compared March 06, 2021 at 10:09 a.m. patchy bilateral lung opacities and left-sided pleural effusion are not significantly changed.. Mediastinum: Mediastinal contours appear normal. Heart size is normal. Bones and chest wall: No suspicious bony lesions. Overlying soft tissues appear unremarkable. IMPRESSION: Stable small right-sided pneumothorax. Labs Result Diagrams: 03/04/21 06:17 03/04/21 06:17 [facility] Medical History Acute bilateral low back pain with bilateral sciatica Arthritis Bleeding ulcer (2018) GERD (gastroesophageal reflux disease) History of frequent headaches History of transfusion (01/16/14) History of transfusion of packed red blood cells (01/16/14) HTN (hypertension) Hx of radiation therapy Left rib fracture (09/2017) Metastasizing leiomyoma of uterus Port-A-Cath in place Wears dentures Wears glasses Surgical History History of colonoscopy with polypectomy (03/22/14) History of esophagogastroduodenoscopy (EGD) (05/22/18) History of esophagogastroduodenoscopy (EGD) (03/22/14) History of lung biopsy (06/2014) History of total hysterectomy with bilateral salpingo-oophorectomy (BSO) (01/2014) Hx of bilateral cataract extraction (02/15/15) Hx of dilation and curettage (01/16/14) Hx of shoulder surgery (2019) Status post dilation and curettage Social History household members: family Smoking Status: Never smoker alcohol intake: never Assessment & Plan Assessment & Plan narrative: 75W with 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 1. Moderate pneumothorax -patient largely asymptomatic at rest, with normal oxygen saturation -chest tube placed in the ED, follow xray confirmed good positioning, placed to suction -surgery consulted for management of chest tube, had to be replaced on 03/02 as i t became dislodged. Removed today, 03/06, with recurrence of small pneumothorax, stable on repeat a few hours later. Reassess tomorrow AM for continued progression or further development of symptoms. -etiology is likely related to her metastatic disease with history of radiation -continue CT management per surgery 2. Chronic bronchiectasis and pneumonia with underlying metastatic disease -outpatient CT 01/2821 showed multiple areas of right lung consolidation, bronchiectasis, nodules and cavitary lesion as well as left lung nodule nodules, consolidations and bronchiectasis likely representing underlying metastatic disease -patient is not having fevers, cough for hypoxia -check sister radiology report notes increased consolidation left lung although clinically patient is not showing increased pulmonary symptoms -currently on Levaquin 750 mg p.o. q.48h to complete 10 day course, her creati nine clearance is just under 50, discussed with pharmacy to change Levaquin to Q 24 hours to finish 10 day course 3. Anorexia, nausea, vomiting, failure to thrive -etiology likely related to progressively worsening cancer as evidenced by significant cancer in liver which is enlarging -additionally has large hiatal hernia with patulous esophagus -votrient is another possible etiology as has common side effects of nausea, vomiting, and anorexia but she has been on it for 5 years -omeprazole has interaction with votrient's absorption, would not recommend increasing this dose at this time as it may decrease efficacy of votrient, h2 receptor blockers have similar effect -spoke with patient's oncologist on 03/02 who agrees that these symptoms are most likely related to cancer progression, oncology recommended continuining patient on same medications -powered bridge specialist consulted appreciate recs -recommend follow up with oncology and GI for further recs -03/04 started metoclopramide 5 mg t.i.d. a.c. as patient's son brought up whether motility agent may help symptoms, and this is worth a try as she does have sensation of food getting stuck or coming up 4. TOM, pre renal, resolved -likely prerenal secondary to poor oral intake 5. Metastatic leiomyosarcoma -currently appears to be progressing while on treatment -patient appears to have failure to thrive and very poor prognosis -liver function tests currently normal 6. Anemia, mild -no need for transfusion -appears near baseline 7. Depression -patient was recently started on sertraline 50 mg q.d. by her PCP, resume sertraline DVT ppx: SCDs, has pork allergy CODE: Full Proxy: Carrillo Nino, son discharge home tomorrow if pneumothorax remains stable.
--- NOTE | 2021-03-06 15:36 | PC.NURSE ---
AM shift note. pt AO and has a flat/depressive affect and demeanor. pt up SBA to BSC. NOC shift reported nocturnal incontinence but brief dry for me. Right chest tube DC'ed this AM around [address] Allen and tolerated moderately, pt reporting some pain but declined pain medications. 97% RA and clear/diminished lungs. R FA PIV flushing (just straighten her arm). Dyspha diet and thin liquids (able to swallow without concern). pt refused SCD's and oral care (no teeth but didn't was to swish). Declined washing face as well.
--- NOTE | 2021-03-06 15:50 | CM.DANOTE ---
DCP/continued: Received notification today that patient medically stable for discharge. Patient requiring home 02 but has no additional d/c planning needs. P: Home today. TEO Diaz
--- NOTE | 2021-03-06 15:57 | CM.DPC ---
DCP/continued: Reviewed chart. Patient is COVID positive and current plan is to d/c home today with home 02. No additional d/c needs identified. P: Home today. TEO Diaz
--- NOTE | 2021-03-06 17:28 | PC.NURSE ---
Addendum entered by Shandra Multani R.N. 03/06/21 21:30: Pt had uneventful evening. Dsg to right chest S/P chest tube CDI Denies discomfort. HL intact/patent. Condition remains essentially unchanged. Call light w/in reach, bed alarm on for pt safety. Continue w/plan of care. Original Note: Pt watching TV w/son. SpO2 97% RA Denies discomfort when asked. HL SHARON intact/patent. Call light w/in reach, bed alarm on for pt safety.
[2021-03-06] MEDS: levoFLOXacin 250 MG TABLET 750 MG PO (18:02)
[2021-03-06] MEDS: SERTRALINE 50 MG TABLET PO (20:12)
[2021-03-07 04:30] VITALS: BP 151/79; PULSE 88; RESP 16; TEMP 36.6; O2SAT 97
[2021-03-07] MEDS: PAZOPANIB 200 MG 800 EACH PO (06:09)
[2021-03-07 07:42] VITALS: BP 153/69; PULSE 83; RESP 14; TEMP 36.3; O2SAT 98
--- NOTE | 2021-03-07 08:00 | DI.RAD.S_ITS ---
PROCEDURE: XR CHEST 1V INDICATIONS: re-assess pneumothroax TECHNIQUE: One view of the chest was acquired. COMPARISON: [facility], , XR CHEST 1V, 03/06/2021, 13:35. FINDINGS: Surgical changes and devices: None. Lungs and pleura: Small right-sided pneumothorax slightly decreased in size compared March 06, 2021. Patchy bilateral lung airspace opacities not significantly changed compared to prior examination. Left-sided pleural fluid collection slightly decreased in size compared to prior exam. Mediastinum: Mediastinal contours appear normal. Heart size is normal. Bones and chest wall: Multiple left-sided rib fractures. No suspicious bony lesions. Overlying soft tissues appear unremarkable. IMPRESSION: Small right-sided pneumothorax slightly decreased in size without resolution. Dictated by: Amy Slaughter MD, PhD on 03/07/2021 at 8:36 Approved by: Amy Slaughter MD, PhD on 03/07/2021 at 8:37
[2021-03-07] MEDS: PANTOPRAZOLE DR 20 MG TABLET PO (08:22)
[2021-03-07] MEDS: MULTIVIT,CALC,MINS/IRON/FOLIC 1 TABLET 1 TAB PO (08:22)
[2021-03-07] MEDS: SODIUM CHLORIDE 0.9% FLUSH 10 ML IV (08:23)
[2021-03-07] MEDS: SOLIFENACIN 5 MG TABLET 10 MG PO (08:23)
[2021-03-07] MEDS: SUCRALFATE 1 GM TABLET PO (08:25)
--- NOTE | 2021-03-07 09:10 | PC.NURSE ---
Patient alert, oriented denies pain and nausea. LS diminished in the bilat bases, RA 98% Patient ate yogurt and fruit, no BM for 6 days, patient reports no abdominal pain, BT+, denies flatus.
[2021-03-07] MEDS: METOCLOPRAMIDE HCL 5 MG TABLET PO (09:24)
[2021-03-07 09:36] VITALS: O2SAT 98
--- NOTE | 2021-03-07 09:40 | PM.DS.1 ---
History of Present Illness History of Present Illness Date Patient Seen: 03/07/21 Time Patient Seen: 09:41 Chief complaint: oncology symptoms phys ref Narrative: Per Dr. Garcia, Ms. 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 She has noted decreased appetite, nausea, vomiting. This has been occurring intermittently over the last two years, and has worsened. She does not have abdominal pain. In addition, she has noted worsening shortness of breath with exertion over the last 4-5 days. She did come to the hospital in January and was found to have a small pneumothorax, and was able to be discharged. She saw her oncologist on 02/22 who started her on levofloxacin for a pneumonia. Her CT scan was reviewed then and noted to have an enlarging pulmonary nodule and enlarging liver metastases. Her liver was read as extensive hepatic metastases and left lobe of liver is replaced by tumor and metastases in the right lobe of the liver are increased in size. She has already seen GI for these symptoms and underwent EGD which showed mild gastritis and was started on PPI and reglan. She also stopped votrient for 2 weeks and these did not help her symptoms. In the ED, workup was done and she had normal vital signs aside from mild hypertension. WBC 7.3, hgb 10.3, plts 245, BUN 26, creatinine 1.31. AST 42, ALT 19. COVID negative. She was given IV fluids. Chest xray showed moderate right pneumothorax. She had a chest tube placed. She was admitted for further treatment. Discharge Providers Provider Date of admission: 03/01/21 17:37 Discharge Date: 03/07/21 Primary care physician: Fuad Burkett MD Consults: 03/01/21 22:58 Consult to Dietitian, Adult Routine Comment: pt states barely eat anything Reason For Exam: decreased appetite, nausea and vomiting Discharge provider: Ruperto Lucas DO Summary Hospital Course Discharge Diagnosis: Please see hospital course by problem list noted below. 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 1. Moderate pneumothorax, improving. -patient largely asymptomatic at rest, with normal oxygen saturation -chest tube placed in the ED, follow xray confirmed good positioning, placed to suction initially. -surgery consulted for management of chest tube, had to be replaced on 03/02 as it became dislodged. Removed ultimately on 03/06, with recurrence of small pneumothorax, stable on repeat a few hours later and improved the following morning. Given continued stability, safe for discharge home from surgery perspective. -etiology is likely related to her metastatic disease with history of radiation 2. Chronic bronchiectasis and pneumonia with underlying metastatic disease -outpatient CT 02/08/21 showed multiple areas of right lung consolidation, bronchiectasis, nodules and cavitary lesion as well as left lung nodule nodules, consolidations and bronchiectasis likely representing underlying metastatic disease -patient is not having fevers, cough for hypoxia however could not completly rule out pneumonia. -started on and continue Levaquin 750 mg p.o. to complete 10 day course. Initially was on ceftriaxone and azithromycin but changed to levofloxacin once TOM improved. 3. Anorexia, nausea, vomiting, failure to thrive -etiology likely related to progressively worsening cancer as evidenced by significant cancer in liver which is enlarging -additionally has large hiatal hernia with patulous esophagus -votrient is another possible etiology as has common side effects of nausea, vomiting, and anorexia but she has been on it for 5 years -omeprazole has interaction with votrient's absorption, would not recommend increasing this dose at this time as it may decrease efficacy of votrient, h2 receptor blockers have similar effect -spoke with patient's oncologist on 03/02 who agrees that these symptoms are most likely related to cancer progression, oncology recommended continuining patient on same medications -milk vendor consulted appreciate recs -recommend follow up with oncology and GI for further recs 4. TOM, pre renal, resolved -likely prerenal secondary to poor oral intake. Improved with fluids and above management. 5. Metastatic leiomyosarcoma -currently appears to be progressing while on treatment -patient appears to have failure to thrive and very poor prognosis -liver function tests currently normal 6. Anemia, mild -no need for transfusion -appears near baseline 7. Depression -patient was recently started on sertraline 50 mg q.d. by her PCP, no changes during her admission. Time Spent with Patient Time spent: Less than 30 minutes Exam Vital Signs (past 8 hours): - 03/07/21 04:30 03/07/21 07:42 03/07/21 09:36 Temperature 97.9 F 97.4 F L Pulse Rate 88 83 Respiratory Rate 16 14 Blood Pressure 151/79 H 153/69 H Pulse Oximetry 97 98 98 Oxygen Delivery Method Room Air Oxygen Flow Rate 0 Narrative Exam Narrative: GEN: chronically ill, frail, pale HEENT: dry mucous membranes, PERRL NECK: trachea midline, no JVD CV: regular rate and rhythm, with no murmurs PULM: chest tube in place on R, no leak, good air movement no wheezes rhonchi or rales. ABD: soft, nontender, nondistended, no organomegaly, normal bowel sounds EXT: nonpitting bilateral lower extremity trace edema, no joint effusions NEURO: awake, alert and oriented, no focal deficits Objective Labs Result Diagrams: 03/04/21 06:17 03/04/21 06:17 [facility] Medical History Acute bilateral low back pain with bilateral sciatica Arthritis Bleeding ulcer (2017) GERD (gastroesophageal reflux disease) History of frequent headaches History of transfusion (01/16/14) History of transfusion of packed red blood cells (01/16/14) HTN (hypertension) Hx of radiation therapy Left rib fracture (09/2017) Metastasizing leiomyoma of uterus Port-A-Cath in place Wears dentures Wears glasses Surgical History History of colonoscopy with polypectomy (03/22/14) History of esophagogastroduodenoscopy (EGD) (05/22/18) History of esophagogastroduodenoscopy (EGD) (03/22/14) History of lung biopsy (06/2014) History of total hysterectomy with bilateral salpingo-oophorectomy (BSO) (01/2014) Hx of bilateral cataract extraction (02/15/15) Hx of dilation and curettage (01/16/14) Hx of shoulder surgery (2018) Status post dilation and curettage Social History household members: family Smoking Status: Never smoker alcohol intake: never Discharge Plan Discharge Plan Patient Disposition: Home Provider Discharge Comment: You were admitted to the hospital with a pneumothorax. You had a chest tube placed. After removal the pneumothorax returned but remained small and stable and you had no symptoms. You were also treated for a possible pneumonia and will complete antibiotics at home. Discharge orders & Medications Prescriptions: New levofloxacin 750 mg tablet 750 mg PO DAILY@1600 4 Days Qty: 4 RF: 0 Continued levofloxacin 750 mg Tablet 750 mg PO DAILY 10 Days Qty: 10 RF: 0 Robitussin Cough-Chest Domingo DM 5-100 mg/5 mL Liquid 10 ml PO Q4H Qty: 120 RF: 1 Votrient 200 mg Tablet 800 mg PO DAILY 30 Days Qty: 120 RF: 12 metoclopramide HCl 5 mg Tablet 5 mg PO Q6HR PRN (Reason: Nausea) RF: 0 solifenacin 10 mg Tablet 10 mg PO DAILY RF: 0 sertraline 50 mg tablet 50 mg PO BEDTIME RF: 0 amlodipine 5 mg tablet 2 tab PO DAILY RF: 0 Follow up/Referrals: Fuad Burkett MD [Primary Care Provider] - Diet/Activity/Treatments Diet: Diet as Tolerated Activity: As tolerated, would recommend against any commercial flights for a few weeks given pnuemothorax. Discharge Data Primary Care Provider: Fuad Burkett V
[2021-03-07 10:38] VITALS: O2SAT 96
[2021-03-07] MEDS: BISACODYL 10 MG SUPP PR (11:42)
--- NOTE | 2021-03-07 11:52 | DIET.PN ---
Dietary Progress Note RD Note: Rd alerted by Hair Cutter Room Service pt ordering nourishments outside of Dysphagia Mechanical Soft texture range. This diet is assigned per pt preference as she has no natural teeth, pt has no swallowing issues. RD discussed c pt at bedside, pt prefers to remain on Dysphagia Mechanical Soft, desires not to change diet, however voiced to SOFTWARE PACKAGER that she cannot wait to leave hospital to be able to eat cheeseburger.
[2021-03-07] MEDS: FLEETS ENEMA 1 EACH PR (13:50)
[2021-03-07] MEDS: levoFLOXacin 250 MG TABLET 750 MG PO (15:23)
== END 2021-03-07 16:30 | disposition home or self-care (01) | DRG 199 ==
LOC: ED 15:11 → AC 17:38
PROVIDERS: Admitting Provider Internal Medicine; Emergency Provider Physician Assistant; PCP Internal Medicine; Referring Provider Physician Assistant; Visit Provider Internal Medicine
DX: J93.9 Pneumothorax, unspecified (principal); J18.9 Pneumonia, unspecified organism; C78.7 Secondary malignant neoplasm of liver and intrahepatic bile duct; N17.9 Acute kidney failure, unspecified; C78.02 Secondary malignant neoplasm of left lung; R62.7 Adult failure to thrive; F32.9 Major depressive disorder, single episode, unspecified; J47.9 Bronchiectasis, uncomplicated; K44.9 Diaphragmatic hernia without obstruction or gangrene; R11.2 Nausea with vomiting, unspecified; C55 Malignant neoplasm of uterus, part unspecified; I10 Essential (primary) hypertension; K29.70 Gastritis, unspecified, without bleeding; Z20.822 Contact with and (suspected) exposure to COVID-19; Z79.52 Long term (current) use of systemic steroids; Z68.21 Body mass index [BMI] 21.0-21.9, adult
CPT/HCPCS: 32551; 36415; 71045; 80048; 80053; 81001; 82550; 82570; 83690; 83735; 84300; 84484; 85025; 85027; 87635; 93005; 93010; 94760; 94762; 96361; 96365; 96367; 96375; 99284; C9803; J0696; J1956; J2060; J2270; J3420

== ENCOUNTER 2021-03-14 16:34 | Emergency (ER) | payer OTHER, MEDICAID, SELFPAY ==
[2021-03-01 22:55] VITALS: BMI 20.9
[2021-03-14] VITALS (9 sets, daily range): BP systolic 153–166; BP diastolic 81–88; PULSE 84–94; RESP 21–27; TEMP 36.6; O2SAT 91–96
--- NOTE | 2021-03-14 16:46 | DI.RAD.S_ITS ---
PROCEDURE: XR CHEST 1V INDICATIONS: Flu like symptoms TECHNIQUE: One view of the chest was acquired. COMPARISON: [facility], CT, CT CHEST ABD PEL W CON, 02/08/2021, 10:50. [facility], CR, XR CHEST 1V, 03/06/2021, 13:35. [facility], CR, XR CHEST 1V, 03/07/2021, 5:44. FINDINGS: Surgical changes and devices: None. Lungs and pleura: A small to moderate left-sided pleural effusion is seen, which has developed since the prior examination. Patchy bilateral infiltrates are seen, which are similar to the prior examination. There is no pneumothorax. Low lung volumes are noted. This causes a crowded appearance to the lung markings and limits evaluation. Mediastinum: The cardiac contours are within normal limits. The aorta demonstrates calcification and tortuosity. Bones and chest wall: Age-appropriate bony degenerative changes are seen. Mild dextroconvex scoliotic curvature is seen. No suspicious bony lesions. Overlying soft tissues appear unremarkable. IMPRESSION: Interval development of a small to moderate left-sided pleural effusion. Stable bilateral patchy infiltrates are seen. No right-sided pneumothorax is now seen. Dictated by: Aristeo Lovelace M.D. on 03/14/2021 at 16:15 Approved by: Aristeo Lovelace M.D. on 03/14/2021 at 16:17
[2021-03-14 17:18] LABS: Add Manual Diff / Slide Review NO; Basophils Absolute Auto 0 /uL (0-100); Basophils Percent Auto 0.4 % (0-2); Eosinophils Absolute Auto 300 /uL (0-450); Eosinophils Percent Auto 3.1 % (2-4); Hematocrit 29.3 % (36-46); Hemoglobin 9.8 g/dL (12.0-16.0); Lymphocytes Absolute Auto 700 /uL (1100-4500); Lymphocytes Percent Auto 7.5 % (25-40); Mean Corpuscular HGB Conc 33.4 % (30-36); Mean Corpuscular Hemoglobin 34.6 PG (26-34); Mean Corpuscular Volume 103.7 fL (80-100); Monocytes Absolute Auto 700 /uL (0-900); Monocytes Percent Auto 6.8 % (3-14); Neutrophils Absolute Auto 8000 /uL (1500-7000); Neutrophils Percent Auto 82.2 % (50-75); Platelet Count 289 X10^3/uL (150-400); Red Blood Cell Count 2.82 X10^6/uL (4.0-5.2); Red Cell Distribution Width 17.8 % (11.6-14.8); White Blood Cell Count 9.7 X10^3/uL (4.5-11.0)
[2021-03-14 17:29] LABS: Alanine Aminotransferase 17 IU/L (<35); Albumin 3.2 g/dL (3.5-5.0); Albumin Globulin Ratio 1.1 (1.0-2.8); Alkaline Phosphatase 61 U/L (38-126); Aspartate Aminotransferase 38 IU/L (14-36); Bilirubin Total 0.3 mg/dL (0.2-1.3); Blood Urea Nitrogen 18 mg/dL (7-17); Calcium 8.8 mg/dL (8.4-10.2); Carbon Dioxide 25 mmol/L (22-32); Chloride 105 mmol/L (98-107); Creatine Kinase 81 U/L (30-135); Estimated Glomerular Filt Rate > 60.0 mL/min (>60); Globulin 2.8 g/dL (1.7-4.1); Glucose 116 mg/dL (80-110); HEMOLYSIS < 15 (0-50); Lipase 33 U/L (23-300); Potassium 4.2 mmol/L (3.4-5.1); Sodium 135 mmol/L (137-145)
[2021-03-14 17:39] LABS: Troponin I < 0.012 ng/mL (0.01-0.034)
--- NOTE | 2021-03-14 18:40 | PC.NURSE ---
worsening shortness of breath since yesterday, with weakness/shakiness
--- NOTE | 2021-03-14 18:52 | ED.SOB ---
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 Initially pneumothorax was found on outpatient CT of 02/08/2021 she was evaluated in the emergency department for she had multiple chest x-rays after and was asymptomatic decision to discharge her home at that time. She return to emergency department on March 01 for pneumothorax was found to worsen she was if needed until 03/07/2021, was discharged home on Levaquin she has a few more days of Levaquin the left pigtail catheter was placed for worsening pneumothorax. Son states that she continues to be weak she has abnormal taste decreased appetite continues to not do well. According to record this seems to be on going since at least earlier this month. Related Data Home Medications Medication Instructions Recorded Confirmed amlodipine 5 mg tablet 2 tab PO DAILY 05/06/18 03/14/21 metoclopramide HCl 5 mg tablet 5 mg PO Q6HR PRN 03/01/21 03/01/21 solifenacin 10 mg tablet 10 mg PO DAILY 03/01/21 03/14/21 sertraline 50 mg tablet 100 mg PO BEDTIME 03/04/21 03/14/21 levofloxacin 750 mg tablet 740 mg PO DAILY 03/14/21 03/14/21 pantoprazole 40 mg tablet,delayed 40 mg PO DAILY 03/14/21 03/14/21 release Previous Rx's Medication Instructions Recorded dextromethorphan-guaifenesin 5 10 ml PO Q4H #120 ml 02/22/21 mg-100 mg/5 mL oral liquid (Robitussin Cough-Chest Congestion DM) pazopanib 200 mg tablet (Votrient) 800 mg PO DAILY 30 Days #120 tab 03/06/21 furosemide 20 mg tablet (Lasix) 20 mg PO QAM #5 tab 03/14/21 Allergies Allergy/AdvReac Type Severity Reaction Status Date / Time Pork/Porcine Containing Allergy Intermediate SWELLING, Verified 03/14/21 17:16 Products Vomiting Review of Systems Review of Systems ROS Unobtainable: All systems reviewed & are unremarkable except as noted in HPI and below Constitutional Constitutional: Reports anorexia and Reports fatigue Cardiovascular Cardiovascular: Denies chest pain, Denies edema, Reports leg edema and Denies dyspnea Respiratory Respiratory: Denies dyspnea Genitourinary Genitourinary: Denies urinary hesitancy and Denies urinary urgency Musculoskeletal Musculoskeletal: Reports myalgias Integumentary/Breasts Skin/Breast: Denies rash Endocrine Endocrine: Reports fatigue Patient History Medical History Acute bilateral low back pain with bilateral sciatica Arthritis Bleeding ulcer (2018) GERD (gastroesophageal reflux disease) History of frequent headaches History of transfusion (01/16/14) History of transfusion of packed red blood cells (01/16/14) HTN (hypertension) Hx of radiation therapy Left rib fracture (09/2017) Metastasizing leiomyoma of uterus Port-A-Cath in place Wears dentures Wears glasses Surgical History History of colonoscopy with polypectomy (03/22/14) History of esophagogastroduodenoscopy (EGD) (05/22/18) History of esophagogastroduodenoscopy (EGD) (03/22/14) History of lung biopsy (06/2014) History of total hysterectomy with bilateral salpingo-oophorectomy (BSO) (01/2014) Hx of bilateral cataract extraction (02/15/15) Hx of dilation and curettage (01/16/14) Hx of shoulder surgery (2018) Status post dilation and curettage Social History household members: family Smoking Status: Never smoker alcohol intake: never Smoking Status: Never smoker alcohol intake frequency: holidays/special occasions only Substance Use Type: does not use Exam Initial Vital Signs Initial Vital Signs: Vital Signs Temperature 97.8 F 03/14/21 17:13 Pulse Rate 94 H 03/14/21 17:13 Respiratory Rate 22 03/14/21 17:13 Blood Pressure 153/81 H 03/14/21 17:13 Pulse Oximetry 95 03/14/21 17:13 GENERAL: Chronically ill 75-year-old female no acute distress HEENT: Head atraumatic,EOMI, pupils reactive, face symmetric, moist mucous membranes CARDIOVASCULAR: Regular rate and rhythm without murmurs, rubs or gallops. RESPIRATORY: Decreased breath sounds in left base no respiratory distress no rales or rhonchi ABDOMEN: Soft, nontender. Normoactive bowel sounds all 4 quadrants. No guarding or rebound. EXTREMITIES: Normal range of motion, no clubbing or edema. Neurovascularly intact NEUROLOGICAL: Alert and oriented x4.Normal gait and speech. SKIN: Warm, dry, no laceration, no petechiae, no rashes or lesions. Course Orders Ordered: ED Orders 03/14/21 16:46 XR chest 1V Stat 03/14/21 17:00 Complete Blood Count AUTO DIFF Stat Comprehensive Metabolic Panel Stat Lipase Stat Troponin & CK Cardiac Panel Stat 03/14/21 17:10 EKG-12 Lead Stat 03/14/21 19:04 CT angio chest PE protocol Stat Vital Signs Vital signs: Vital Signs - 8 hr 03/14/21 17:13 03/14/21 17:19 03/14/21 17:30 Temperature 97.8 F Pulse Rate 94 H 91 H 89 Respiratory Rate 22 27 H 23 Blood Pressure 153/81 H 157/88 H Pulse Oximetry 95 96 96 03/14/21 18:00 03/14/21 18:30 03/14/21 19:00 Temperature Pulse Rate 87 89 84 Respiratory Rate 21 22 22 Blood Pressure 161/88 H 166/85 H 164/85 H Pulse Oximetry 95 94 94 03/14/21 19:30 03/14/21 20:00 03/14/21 20:05 Temperature Pulse Rate 85 85 90 Respiratory Rate 22 24 24 Blood Pressure 164/84 H Pulse Oximetry 91 MDM - SOB/Dyspnea Lab Data Attestation: I reviewed the patient's lab results. Result diagrams: 03/14/21 17:00 03/14/21 17:00 Labs: Lab Results 03/14/21 03/14/21 Range/Units 17:00 17:00 WBC 9.7 (4.5-11.0) X10^3/uL RBC 2.82 L (4.0-5.2) X10^6/uL Hgb 9.8 L (12.0-16.0) g/dL Hct 29.3 L (36-46) % MCV 103.7 H (80-100) fL MCH 34.6 H (26-34) PG MCHC 33.4 (30-36) % RDW 17.8 H (11.6-14.8) % Plt Count 289 (150-400) X10^3/uL Neut % (Auto) 82.2 H (50-75) % Lymph % (Auto) 7.5 L (25-40) % Wood % (Auto) 6.8 (3-14) % Eos % (Auto) 3.1 (2-4) % Baso % (Auto) 0.4 (0-2) % Neut # (Auto) 8000 H (3459-5932) /uL Lymph # (Auto) 700 L (8215-6421) /uL Wood # (Auto) 700 (0-900) /uL Eos # (Auto) 300 (0-450) /uL Baso # (Auto) 0 (0-100) /uL Sodium 135 L (137-145) mmol/L Potassium 4.2 (3.4-5.1) mmol/L Chloride 105 (98-107) mmol/L Carbon Dioxide 25 (22-32) mmol/L BUN 18 H (7-17) mg/dL Creatinine 0.82 (0.52-1.04) mg/dL Estimated GFR > 60.0 (>60) mL/min BUN/Creatinine Ratio 22.0 (6-22) Glucose 116 H (80-110) mg/dL Calcium 8.8 (8.4-10.2) mg/dL Total Bilirubin 0.3 (0.2-1.3) mg/dL AST 38 H (14-36) IU/L ALT 17 (<35) IU/L Alkaline Phosphatase 61 (38-126) U/L Total Creatine Kinase 81 (30-135) U/L CK-MB (CK-2) TNP CK-MB (CK-2) Rel Index TNP Troponin I < 0.012 (0.01-0.034) ng/mL Total Protein 6.0 L (6.3-8.2) g/dL Albumin 3.2 L (3.5-5.0) g/dL Globulin 2.8 (1.7-4.1) g/dL Albumin/Globulin Ratio 1.1 (1.0-2.8) Lipase 33 (23-300) U/L Imaging Data Chest x-ray: Radiologist's Impression: PROCEDURE: XR CHEST 1V INDICATIONS: Flu like symptoms TECHNIQUE: One view of the chest was acquired. COMPARISON: [facility], CT, CT CHEST ABD PEL W CON, 02/08/2021, 10:50. [facility], CR, XR CHEST 1V, 03/06/2021, 13:35. [facility], CR, XR CHEST 1V, 03/07/2021, 5:44. FINDINGS: Surgical changes and devices: None. Lungs and pleura: A small to moderate left-sided pleural effusion is seen, which has developed since the prior examination. Patchy bilateral infiltrates are seen, which are similar to the prior examination. There is no pneumothorax. Low lung volumes are noted. This causes a crowded appearance to the lung markings and limits evaluation. Mediastinum: The cardiac contours are within normal limits. The aorta demonstrates calcification and tortuosity. Bones and chest wall: Age-appropriate bony degenerative changes are seen. Mild dextroconvex scoliotic curvature is seen. No suspicious bony lesions. Overlying soft tissues appear unremarkable. IMPRESSION: Interval development of a small to moderate left-sided pleural effusion. Stable bilateral patchy infiltrates are seen. No right-sided pneumothorax is now seen. Dictated by: Aristeo Lovelace M.D. on 03/14/2021 at 16:15 CT scan - chest: Radiologist's Impression: PROCEDURE: CT ANGIO CHEST PE PROTOCOL INDICATIONS: short of breath TECHNIQUE: After the administration of intravenous contrast, 2 mm thick sections acquired from the pulmonary apices to the posterior costophrenic angles. 3-dimensional maximum intensity projection (MIP) coronal and sagittal reformats were then acquired through the thorax. For radiation dose reduction, the following was used: automated exposure control, adjustment of mA and/or kV according to patient size. COMPARISON: [facility], CT, CT CHEST ABD PEL W CON, 02/08/2021, 10:50. [facility], CR, XR CHEST 1V, 03/14/2021, 16:48. FINDINGS: Image quality: Excellent. Pulmonary arteries: Pulmonary arteries are normal in size, and demonstrate no intraluminal filling defects to suggest central pulmonary embolism. Lungs and pleura: Moderate bilateral pleural effusions have increased in size when compared to the prior exam from 02/08/2021 with atelectasis of the adjacent portions of the lungs. The previously seen right-sided pneumothorax has resolved. Multiple pulmonary nodules in consolidations are seen, not significantly progressed when compared to the CT from 02/08/2021. Right apical consolidative opacity with bronchiectasis appears unchanged. A 0.6 cm right upper lobe nodule (66/5) does not appear significantly changed. Consolidation in the posterior right upper lobe adjacent to the fissure appears slightly more densely consolidated than on the prior exam. Right mid to lower lobe consolidation does not appear significantly changed. Left perifissural consolidation does not appear significantly changed, although it is partially obscured by the adjacent pleural effusion. Left lower lobe peribronchovascular nodule does not appear significantly changed, although partially obscured by atelectasis. Mediastinum: Heart size is normal, without pericardial effusion. Coronary artery atherosclerotic calcifications are present. Mild aortic atherosclerosis. No mediastinal or hilar adenopathy. Thoracic aorta is normal in caliber and enhancement. Esophagus is mildly patulous with a moderate hiatal hernia. Bones and chest wall: Prominent trabecular thickening and skin thickening in the left breast is partially imaged, possibly related to edema or mastitis. No suspicious bony lesions. Chronic right anterolateral rib fractures are noted at the 5th and 6th ribs. Chronic fractures are postsurgical changes at the posterolateral left 4th and 5th ribs. Multilevel degenerative changes are seen in the spine. Thyroid appears normal. No axillary or supraclavicular adenopathy. Abdomen: Multiple hepatic masses are partially imaged, not significantly changed given differences in contrast timing in technique. A calcified gallstone is redemonstrated. Visualized upper abdominal solid organs otherwise appear normal in the early arterial phase of enhancement. IMPRESSION: 1. No acute pulmonary embolus. 2. Moderate bilateral pleural effusions have increased in size when compared to the CT from 02/08/2021 with atelectasis of the adjacent lungs. No pneumothorax is seen. 3. Bilateral pulmonary nodules and malignant consolidations do not appear significantly changed. 4. Hepatic metastatic disease is partially imaged. 5. Diffuse edema and skin thickening in the left breast are partially imaged but appear new when compared to the prior exam, possibly related to dependent edema and anasarca, although correlation with clinical exam findings is recommended to exclude mastitis or less likely a neoplastic process. Dictated by: Arturo Glynn M.D. on 03/14/2021 at 19:32 Approved by: Arturo Glynn M.D. on 03/14/2021 at 19:47 ECG Data Interpretation: Sinus rhythm rate 85 artifact noted no obvious ST changes MDM Narrative Medical decision making narrative: The patient overall appears chronically ill but at baseline. Chest x-ray does is not show pneumothorax and small left pleural effusion. She is experiencing some shortness Of breath with minimal exertion more so than she had with pneumothorax. With recent hospital stay concern for possible pulmonary embolism she is not anticoagulated. CT chest does not show any pulmonary embolism she does have pleural effusions. Concern for left breast thickened skin and I discussed this finding with patient as she does not have any abnormality of her left breast. I will start her on small dose of Lasix to see if it helps with her mild pleural effusions recommend close outpatient follow-up Son states he is concerned for increasing weakness. Recommend she finish her antibiotics as previously prescribed. She also has multiple chronic illnesses. I have offered home health care support for them he says that it is already in the works. Discharge Plan Departure Patient Disposition: Home Clinical Impression: Pleural effusion, Weakness Instructions: Pleural Effusion Activity Restrictions/Additional Instructions: *You have been diagnosed with pleural effusion on the left *What to do: You have a small pleural effusion in fluid on the left side. This time I recommend he finish antibiotics as previously recommended. There is absolutely no pneumothorax on your CT scan today. We can try water pill to see if that helps improve her breathing *Continue to take medications as directed--> SENT TO [facility] [place] Lasix 20 mg once a day for 2-3 days to see if it helped your breathing *Follow up with your primary care provider in 2-3 days *Return to ER if you should have increasing chest pain shortness of breath weakness or any new, worsening or concerning symptoms Prescriptions: New furosemide [Lasix] 20 mg tablet 20 mg PO QAM Qty: 5 RF: 0 No Action Robitussin Cough-Chest Domingo DM 5-100 mg/5 mL Liquid 10 ml PO Q4H Qty: 120 RF: 1 Votrient 200 mg Tablet 800 mg PO DAILY 30 Days Qty: 120 RF: 12 metoclopramide HCl 5 mg Tablet 5 mg PO Q6HR PRN (Reason: Nausea) RF: 0 solifenacin 10 mg Tablet 10 mg PO DAILY RF: 0 sertraline 50 mg tablet 100 mg PO BEDTIME RF: 0 pantoprazole 40 mg tablet,delayed release (DR/EC) 40 mg PO DAILY RF: 0 levofloxacin 750 mg tablet 740 mg PO DAILY RF: 0 amlodipine 5 mg tablet 2 tab PO DAILY RF: 0 Referrals: Fuad Burkett MD [Primary Care Provider] -
--- NOTE | 2021-03-14 19:04 | DI.CT.S_ITS ---
PROCEDURE: CT ANGIO CHEST PE PROTOCOL INDICATIONS: short of breath TECHNIQUE: After the administration of intravenous contrast, 2 mm thick sections acquired from the pulmonary apices to the posterior costophrenic angles. 3-dimensional maximum intensity projection (MIP) coronal and sagittal reformats were then acquired through the thorax. For radiation dose reduction, the following was used: automated exposure control, adjustment of mA and/or kV according to patient size. COMPARISON: [facility], CT, CT CHEST ABD PEL W CON, 02/08/2021, 10:50. [facility], CR, XR CHEST 1V, 03/14/2021, 16:48. FINDINGS: Image quality: Excellent. Pulmonary arteries: Pulmonary arteries are normal in size, and demonstrate no intraluminal filling defects to suggest central pulmonary embolism. Lungs and pleura: Moderate bilateral pleural effusions have increased in size when compared to the prior exam from 02/08/2021 with atelectasis of the adjacent portions of the lungs. The previously seen right-sided pneumothorax has resolved. Multiple pulmonary nodules in consolidations are seen, not significantly progressed when compared to the CT from 02/08/2021. Right apical consolidative opacity with bronchiectasis appears unchanged. A 0.6 cm right upper lobe nodule (66/5) does not appear significantly changed. Consolidation in the posterior right upper lobe adjacent to the fissure appears slightly more densely consolidated than on the prior exam. Right mid to lower lobe consolidation does not appear significantly changed. Left perifissural consolidation does not appear significantly changed, although it is partially obscured by the adjacent pleural effusion. Left lower lobe peribronchovascular nodule does not appear significantly changed, although partially obscured by atelectasis. Mediastinum: Heart size is normal, without pericardial effusion. Coronary artery atherosclerotic calcifications are present. Mild aortic atherosclerosis. No mediastinal or hilar adenopathy. Thoracic aorta is normal in caliber and enhancement. Esophagus is mildly patulous with a moderate hiatal hernia. Bones and chest wall: Prominent trabecular thickening and skin thickening in the left breast is partially imaged, possibly related to edema or mastitis. No suspicious bony lesions. Chronic right anterolateral rib fractures are noted at the 5th and 6th ribs. Chronic fractures are postsurgical changes at the posterolateral left 4th and 5th ribs. Multilevel degenerative changes are seen in the spine. Thyroid appears normal. No axillary or supraclavicular adenopathy. Abdomen: Multiple hepatic masses are partially imaged, not significantly changed given differences in contrast timing in technique. A calcified gallstone is redemonstrated. Visualized upper abdominal solid organs otherwise appear normal in the early arterial phase of enhancement. IMPRESSION: 1. No acute pulmonary embolus. 2. Moderate bilateral pleural effusions have increased in size when compared to the CT from 02/08/2021 with atelectasis of the adjacent lungs. No pneumothorax is seen. 3. Bilateral pulmonary nodules and malignant consolidations do not appear significantly changed. 4. Hepatic metastatic disease is partially imaged. 5. Diffuse edema and skin thickening in the left breast are partially imaged but appear new when compared to the prior exam, possibly related to dependent edema and anasarca, although correlation with clinical exam findings is recommended to exclude mastitis or less likely a neoplastic process. Dictated by: Arturo Glynn M.D. on 03/14/2021 at 19:32 Approved by: Arturo Glynn M.D. on 03/14/2021 at 19:47
== END 2021-03-14 20:19 | disposition home or self-care (01) ==
PROVIDERS: Emergency Provider Emergency Medicine; PCP Internal Medicine
DX: J90 Pleural effusion, not elsewhere classified (principal); R53.1 Weakness; R63.0 Anorexia; R60.9 Edema, unspecified; R53.83 Other fatigue
CPT/HCPCS: 36415; 71045; 71275; 80053; 82550; 83690; 84484; 85025; 93005; 99284

== ENCOUNTER 2021-05-03 09:36 | Inpatient (IN) | payer OTHER, MEDICAID, SELFPAY ==
[2021-03-01 22:55] VITALS: BMI 20.9
[2021-05-03] VITALS (16 sets, daily range): BP systolic 157–185; BP diastolic 77–113; PULSE 81–100; RESP 12–44; TEMP 35.7–36.7; O2SAT 93–100; BMI 24.2
--- NOTE | 2021-05-03 10:07 | DI.RAD.S_ITS ---
PROCEDURE: XR CHEST 1V INDICATIONS: suspected sepsis TECHNIQUE: One view of the chest was acquired. COMPARISON: [facility], CT, CT ANGIO CHEST PE PROTOCOL, 03/14/2021, 19:12. [facility], CR, XR CHEST 1V, 03/14/2021, 16:48. [facility], CR, XR CHEST 1V, 03/07/2021, 5:44. FINDINGS: Surgical changes and devices: None. Lungs and pleura: Low lung volumes. Moderate-sized right pneumothorax. Bilateral streaky and patchy airspace opacity similar to the CXR from February 2021. No pleural effusions or pneumothorax. Mediastinum: Mediastinal contours appear normal. Heart size is normal. Bones and chest wall: No suspicious bony lesions. Overlying soft tissues appear unremarkable. IMPRESSION: Moderate-sized right pneumothorax. Similar streaky and patchy airspace opacities bilaterally. Low lung volumes. Comment: Findings were discussed with Timmy Bartlett at the time of dictation. Dictated by: Elias Jain M.D. on 05/03/2021 at 10:20 Approved by: Elias Jain M.D. on 05/03/2021 at 10:24
--- NOTE | 2021-05-03 10:31 | ED_ITS ---
HPI - General Adult General Chief complaint: Shortness of Breath/Dyspnea Stated complaint: Shortness of breath, feet swelling, yellow eyes Time Seen by Provider: 05/03/21 09:56 Source: patient Mode of arrival: Wheelchair Limitations: no limitations History of Present Illness HPI narrative: Patient is a 75-year-old female. Known history of cancer. Was seen by myself several weeks ago for right-sided pneumothorax. Chest tube was placed and she was admitted to the hospital. Patient went to the Oncology Clinic today. They contacted us stating that it had been a while since they had seen the patient. They felt that she looked worse than the last time they had seen her, they felt that she was having yellowing of the eyes, had lower extremity swelling and shortness of breath. Here in the emergency department patient did seem to be unwilling to answer many of the questions. She did seem upset about being here in the ER. She knew that she was in the emergency department. She knew that she was told to come here by the Oncology Department. She stated that she was not having chest pain. No shortness of breath. She stated that she is taking her medications as directed. Related Data Home Medications Medication Instructions Recorded Confirmed amlodipine 5 mg tablet 2 tab PO DAILY 05/06/18 03/14/21 metoclopramide HCl 5 mg tablet 5 mg PO Q6HR PRN 03/01/21 03/01/21 solifenacin 10 mg tablet 10 mg PO DAILY 03/01/21 03/14/21 sertraline 50 mg tablet 100 mg PO BEDTIME 03/04/21 03/14/21 levofloxacin 750 mg tablet 740 mg PO DAILY 03/14/21 03/14/21 pantoprazole 40 mg tablet,delayed 40 mg PO DAILY 03/14/21 03/14/21 release Previous Rx's Medication Instructions Recorded dextromethorphan-guaifenesin 5 10 ml PO Q4H #120 ml 02/22/21 mg-100 mg/5 mL oral liquid (Robitussin Cough-Chest Congestion DM) pazopanib 200 mg tablet (Votrient) 800 mg PO DAILY 30 Days #120 tab 03/06/21 furosemide 20 mg tablet (Lasix) 20 mg PO QAM #5 tab 03/14/21 Allergies Allergy/AdvReac Type Severity Reaction Status Date / Time Pork/Porcine Containing Allergy Intermediate SWELLING, Verified 03/14/21 17:16 Products Vomiting Review of Systems Constitutional Constitutional: Denies fever(s) and Denies headache(s) Eyes Eyes: Reports as per HPI ENT Ears, Nose, Mouth, and Throat: Denies headache(s) Cardiovascular Cardiovascular: Denies chest pain Respiratory Respiratory: Reports as per HPI and Reports system reviewed and no additional complaints, except as documented Gastrointestinal Gastrointestinal: Denies abdominal pain, Denies nausea and Denies vomiting Musculoskeletal Musculoskeletal: Reports system reviewed and no additional complaints, except as documented Integumentary/Breasts Skin/Breast: Reports system reviewed and no additional complaints, except as documented Neurologic Neurologic: Denies headache(s) Hematologic/Lymphatic On Anticoagulants: No Patient History Medical History Acute bilateral low back pain with bilateral sciatica Arthritis Bleeding ulcer (2017) GERD (gastroesophageal reflux disease) History of frequent headaches History of transfusion (01/16/14) History of transfusion of packed red blood cells (01/16/14) HTN (hypertension) Hx of radiation therapy Left rib fracture (09/2017) Metastasizing leiomyoma of uterus Port-A-Cath in place Wears dentures Wears glasses Surgical History History of colonoscopy with polypectomy (03/22/14) History of esophagogastroduodenoscopy (EGD) (05/22/18) History of esophagogastroduodenoscopy (EGD) (03/22/14) History of lung biopsy (06/2014) History of total hysterectomy with bilateral salpingo-oophorectomy (BSO) (01/2014) Hx of bilateral cataract extraction (02/15/15) Hx of dilation and curettage (01/16/14) Hx of shoulder surgery (2018) Status post dilation and curettage Social History household members: family Smoking Status: Unknown if ever smoked alcohol intake: never Smoking Status: Never smoker alcohol intake frequency: holidays/special occasions only Substance Use Type: does not use Exam Initial Vital Signs Initial Vital Signs: Vital Signs Temperature 96.3 F L 05/03/21 09:56 Pulse Rate 88 05/03/21 09:56 Respiratory Rate 24 05/03/21 09:56 Blood Pressure 175/104 H 05/03/21 09:56 Pulse Oximetry 98 05/03/21 09:56 Const General: cooperative and comfortable HENDC Head: normal to inspection and normocephalic Eyes Other: Mild scleral icterus Resp Effort & Inspection: no respiratory distress, no retractions and tachypneic Auscultation: clear to auscultation bilaterally Cardio Rate: regular rate Rhythm: regular rhythm GI Inspection: normal to inspection Skin General: no rashes or lesions noted Neuro General: patient alert, patient awake and patient oriented x3 Extrem General: edema Psych Appearance: grossly normal and well kempt Procedures Chest Tube Chest Tube 1: Chest Tube Location: right Chest Tube Prep: Yes betadine prep and sterile drapes applied Local Anesthetic: lidocaine 2% Amount of anesthesia used (mL): 10 Incision Made With: #10 blade Post Procedure: sutured to skin and sterile dressing applied Tube Drainage: fluid Amount of initial drainage (mL): 700 Post Procedure CXR?: Yes Patient Tolerated Procedure: Yes Progress: Uri catheter used Course Orders Ordered: ED Orders 05/03/21 11:00 Blood Culture Stat Complete Blood Count AUTO DIFF Stat Comprehensive Metabolic Panel Stat Lactate (Lactic Acid) Stat Lipase Stat Procalcitonin Stat 05/03/21 11:31 Urinalysis and Microscopic Stat 05/03/21 12:26 XR chest 1V Stat 05/03/21 12:46 Consult to General Surgery Stat Acetaminophen (Acetaminophen 325 Mg Tablet) 650 mg PO Q6HR PRN PRN Reason: Fever/Mild Pain (1-3) Piperacillin Sod/Tazobactam (Sod 3.375 gm/ Sodium Chloride) 100 mls @ 25 mls/hr IV Q8H [facility] Pazopanib [Votrient] (200 Mg Tablet) 800 mg PO DAILY SANDOVAL Ondansetron HCl (Ondansetron 4 Mg/2 Ml Inj) 4 mg IV Q8HR PRN PRN Reason: Nausea And Vomiting Oxycodone HCl (Oxycodone Ir 5 Mg Tablet) 5 mg PO Q6HR PRN PRN Reason: Pain, Moderate (4-6) Pantoprazole Sodium (Pantoprazole Dr 40 Mg Tablet) 40 mg PO 0600 SANDOVAL Sertraline HCl (Sertraline 50 Mg Tablet) 100 mg PO BEDTIME SANDOVAL Solifenacin (Solifenacin 5 Mg Tablet) 10 mg PO DAILY SANDOVAL Discontinued Medications Sodium Chloride (Normal Saline 0.9%) 1,000 mls @ 1,000 mls/hr IV BOLUS ONE Stop: 05/03/21 11:06 Last Infusion: 05/03/21 13:10 Dose: 0 mls/hr Documented by: Admin: 05/03/21 11:25 Dose: 1,000 mls/hr Documented by: AMERICO Piperacillin Sod/Tazobactam (Sod 4.5 gm/ Sodium Chloride) 100 mls @ 200 mls/hr IV NOW ONE Stop: 05/03/21 14:59 Last Admin: 05/03/21 16:07 Dose: 200 mls/hr Documented by: CINDY Vital Signs Vital signs: Vital Signs - 8 hr 05/03/21 11:30 05/03/21 12:00 05/03/21 12:20 Pulse Rate 88 86 88 Respiratory Rate Blood Pressure 185/85 H Pulse Oximetry 100 100 100 05/03/21 12:30 05/03/21 12:34 05/03/21 13:00 Pulse Rate 100 H 83 81 Respiratory Rate 24 14 16 Blood Pressure 162/88 H 157/77 H Pulse Oximetry 100 100 100 05/03/21 13:30 05/03/21 13:31 Pulse Rate 83 83 Respiratory Rate 13 12 Blood Pressure 174/96 H Pulse Oximetry 100 100 Medical Decision Making Medical Records Medical records reviewed: Yes I reviewed the patient's medical records. Lab Data Lab results reviewed: Yes I reviewed the patient's lab results. Result diagrams: 05/03/21 11:00 05/03/21 11:00 Labs: Lab Results 05/03/21 05/03/21 05/03/21 Range/Units 11:00 11:00 11:00 WBC 10.4 (4.5-11.0) X10^3/uL RBC 3.07 L (4.0-5.2) X10^6/uL Hgb 10.1 L (12.0-16.0) g/dL Hct 31.1 L (36-46) % MCV 101.4 H (80-100) fL MCH 32.8 (26-34) PG MCHC 32.4 (30-36) % RDW 17.9 H (11.6-14.8) % Plt Count 428 H (150-400) X10^3/uL Neut % (Auto) 88.7 H (50-75) % Lymph % (Auto) 5.5 L (25-40) % [place] % (Auto) 4.9 (3-14) % Eos % (Auto) 0.5 L (2-4) % Baso % (Auto) 0.4 (0-2) % Neut # (Auto) 9300 H (2868-9531) /uL Lymph # (Auto) 600 L (4527-1222) /uL [place] # (Auto) 500 (0-900) /uL Eos # (Auto) 100 (0-450) /uL Baso # (Auto) 0 (0-100) /uL Sodium 137 (137-145) mmol/L Potassium 3.7 (3.4-5.1) mmol/L Chloride 104 (98-107) mmol/L Carbon Dioxide 20 L (22-32) mmol/L BUN 17 (7-17) mg/dL Creatinine 0.82 (0.52-1.04) mg/dL Estimated GFR > 60.0 (>60) mL/min BUN/Creatinine Ratio 20.7 (6-22) Glucose 116 H (80-110) mg/dL Lactate 5.0 H* (0.7-2.1) mmol/L Calcium 8.9 (8.4-10.2) mg/dL Total Bilirubin 0.6 (0.2-1.3) mg/dL AST 32 (14-36) IU/L ALT 15 (<35) IU/L Alkaline Phosphatase 73 (38-126) U/L Total Protein 6.5 (6.3-8.2) g/dL Albumin 3.4 L (3.5-5.0) g/dL Globulin 3.1 (1.7-4.1) g/dL Albumin/Globulin Ratio 1.1 (1.0-2.8) Lipase 38 (23-300) U/L Procalcitonin 0.23 (<0.5) ng/mL 05/03/ Range/Units 13:18 WBC (4.5-11.0) X10^3/uL RBC (4.0-5.2) X10^6/uL Hgb (12.0-16.0) g/dL Hct (36-46) % MCV (80-100) fL MCH (26-34) PG MCHC (30-36) % RDW (11.6-14.8) % Plt Count (150-400) X10^3/uL Neut % (Auto) (50-75) % Lymph % (Auto) (25-40) % [place] % (Auto) (3-14) % Eos % (Auto) (2-4) % Baso % (Auto) (0-2) % Neut # (Auto) (1569-0384) /uL Lymph # (Auto) (0041-9779) /uL [place] # (Auto) (0-900) /uL Eos # (Auto) (0-450) /uL Baso # (Auto) (0-100) /uL Sodium (137-145) mmol/L Potassium (3.4-5.1) mmol/L Chloride (98-107) mmol/L Carbon Dioxide (22-32) mmol/L BUN (7-17) mg/dL Creatinine (0.52-1.04) mg/dL Estimated GFR (>60) mL/min BUN/Creatinine Ratio (6-22) Glucose (80-110) mg/dL Lactate 4.5 H* (0.7-2.1) mmol/L Calcium (8.4-10.2) mg/dL Total Bilirubin (0.2-1.3) mg/dL AST (14-36) IU/L ALT (<35) IU/L Alkaline Phosphatase (38-126) U/L Total Protein (6.3-8.2) g/dL Albumin (3.5-5.0) g/dL Globulin (1.7-4.1) g/dL Albumin/Globulin Ratio (1.0-2.8) Lipase (23-300) U/L Procalcitonin (<0.5) ng/mL Imaging Data Chest x-ray: Radiologist's Impression: [address] [address] XRay Report Signed Patient: Nessa Nino MR#: [id number] : 1945 Acct:[id number] Age/Sex: 75 / F Date of Service: 05/03/21 Loc: ED Accession Number: [id number] ?? Procedure: XR chest 1V Ordering Provider: Timmy Bartlett D.O. PROCEDURE:? XR CHEST 1V ? INDICATIONS:? suspected sepsis ? TECHNIQUE:? One view of the chest was acquired.? ? COMPARISON:? [facility], CT, CT ANGIO CHEST PE PROTOCOL, 03/14/2021, 19:12.? [facility], CR, XR CHEST 1V, 03/14/2021, 16:48.? [facility], CR, XR CHEST 1V, 03/07/2021, 5:44. ? FINDINGS:? ? Surgical changes and devices:? None.? ? Lungs and pleura:? Low lung volumes.? Moderate-sized right pneumothorax.? Bilate ral streaky and patchy airspace opacity similar to the CXR from February 2021.? No pleural effusions or pneumothorax.? ? Mediastinum:? Mediastinal contours appear normal.? Heart size is normal.? ? Bones and chest wall:? No suspicious bony lesions.? Overlying soft tissues appear unremarkable.? ? IMPRESSION:? Moderate-sized right pneumothorax. ? Similar streaky and patchy airspace opacities bilaterally. ? Low lung volumes. ? Comment: Findings were discussed with Timmy Bartlett at the time of dictation. ? ? Dictated by: Elias Jain M.D. on 05/03/2021 at 10:20 ? ? Approved by: Elias Jain M.D. on 05/03/2021 at 10:24?? Post chest tube chest x-ray: Radiologist's Impression: [address] [address] XRay Report Signed Patient: Nessa Nino MR#: [id number] : 1945 Acct:[id number] Age/Sex: 75 / F Date of Service: 05/03/21 Loc: ED Accession Number: [id number] ?? Procedure: XR chest 1V Ordering Provider: Timmy Bartlett D.O. PROCEDURE:? XR CHEST 1V ? INDICATIONS:? S/P chest tube placement on right ? TECHNIQUE:? One view of the chest was acquired.? ? COMPARISON:? [facility], CR, XR CHEST 1V, 03/14/2021, 16:48.? [facility], CT, CT ANGIO CHEST PE PROTOCOL, 03/14/2021, 19:12.? [facility], CR, XR CHEST 1V, 05/03/2021, 10:10. ? FINDINGS:? ? Surgical changes and devices:? A right-sided pleural drain is seen.? ? Lungs and pleura:? There remains a moderate right-sided pneumothorax.? Patchy bilateral infiltrates are seen.? Likely small left-sided pleural effusion.? No left-sided pneumothorax. Low lung volumes are noted. This causes a crowded appearance to the lung markings and limits evaluation.? ? Mediastinum:? The cardiac contours are within normal limits. The aorta demonstrates calcification and tortuosity. ? Bones and chest wall:? No suspicious bony lesions.? Age-appropriate bony degenerative changes are seen.? Overlying soft tissues appear unremarkable.? ? ? IMPRESSION:? Improved right-sided pneumothorax, following pleural drain placement, yet with moderate remaining right-sided pneumothorax. ? Small left-sided pleural effusion. ? ? Dictated by: Aristeo Lovelace M.D. on 05/03/2021 at 12:12 ? ? Approved by: Aristeo Lovelace M.D. on 05/03/2021 at 12:14?? MDM Narrative Medical decision making narrative: Patient is alert oriented x3 and only minimally cooperative with the exam and the history. She does have a right- sided pneumothorax. A Uri catheter was placed. Initially there was a return of air however it started to drain clear fluid. Given her history is most likely malignant fluid. Respiratory status improved. Labs unremarkable. Discussed the case with Dr. Santiago with General surgery who will follow along as a area development consultant for the chest tube. Discussed case with Dr. Garcia. Will admit for further evaluation and treatment. Did discuss this with the patient as well. She expressed understanding and agreement. Discharge Plan Departure Patient Disposition: Admitted As Inpatient Clinical Impression: Pneumothorax, Shortness of breath, Decubitus ulcer, Pleural effusion Admit Date/Time: 05/03/21 13:38 Admit Provider: Cullen Garcia
--- NOTE | 2021-05-03 11:05 | PC.NURSE ---
Assisted BLENDING TANK HELPER with bed bath and lucas-care, substantial skin breakdown noted on the buttocks and inner thighs of patient. Patient appears incontinent, both fecal and urinary. Dr. mora.
[2021-05-03 11:12] LABS: Add Manual Diff / Slide Review NO; Basophils Absolute Auto 0 /uL (0-100); Basophils Percent Auto 0.4 % (0-2); Eosinophils Absolute Auto 100 /uL (0-450); Eosinophils Percent Auto 0.5 % (2-4); Hematocrit 31.1 % (36-46); Hemoglobin 10.1 g/dL (12.0-16.0); Lymphocytes Absolute Auto 600 /uL (1100-4500); Lymphocytes Percent Auto 5.5 % (25-40); Mean Corpuscular HGB Conc 32.4 % (30-36); Mean Corpuscular Hemoglobin 32.8 PG (26-34); Mean Corpuscular Volume 101.4 fL (80-100); Monocytes Absolute Auto 500 /uL (0-900); Monocytes Percent Auto 4.9 % (3-14); Neutrophils Absolute Auto 9300 /uL (1500-7000); Neutrophils Percent Auto 88.7 % (50-75); Platelet Count 428 X10^3/uL (150-400); Red Blood Cell Count 3.07 X10^6/uL (4.0-5.2); Red Cell Distribution Width 17.9 % (11.6-14.8); White Blood Cell Count 10.4 X10^3/uL (4.5-11.0)
[2021-05-03] MEDS: SODIUM CHLORIDE 0.9% 1,000 ML 1000 ML IV (11:25)
[2021-05-03 11:26] LABS: Alanine Aminotransferase 15 IU/L (<35); Albumin 3.4 g/dL (3.5-5.0); Albumin Globulin Ratio 1.1 (1.0-2.8); Alkaline Phosphatase 73 U/L (38-126); Aspartate Aminotransferase 32 IU/L (14-36); BUN Creatinine Ratio 20.7 (6-22); Bilirubin Total 0.6 mg/dL (0.2-1.3); Blood Urea Nitrogen 17 mg/dL (7-17); Calcium 8.9 mg/dL (8.4-10.2); Carbon Dioxide 20 mmol/L (22-32); Chloride 104 mmol/L (98-107); Estimated Glomerular Filt Rate > 60.0 mL/min (>60); Globulin 3.1 g/dL (1.7-4.1); Glucose 116 mg/dL (80-110); HEMOLYSIS < 15 (0-50); Lipase 38 U/L (23-300); Potassium 3.7 mmol/L (3.4-5.1); Sodium 137 mmol/L (137-145); Total Protein 6.5 g/dL (6.3-8.2)
[2021-05-03 11:42] LABS: Procalcitonin 0.23 ng/mL (<0.5)
--- NOTE | 2021-05-03 12:01 | PC.NURSE ---
This RN assisted Dr. Bartlett with chest tube procedure, RT at bedside, patient tolerated procedure well.
--- NOTE | 2021-05-03 12:26 | DI.RAD.S_ITS ---
PROCEDURE: XR CHEST 1V INDICATIONS: S/P chest tube placement on right TECHNIQUE: One view of the chest was acquired. COMPARISON: [facility], CR, XR CHEST 1V, 03/14/2021, 16:48. [facility], CT, CT ANGIO CHEST PE PROTOCOL, 03/14/2021, 19:12. [facility], CR, XR CHEST 1V, 05/03/2021, 10:10. FINDINGS: Surgical changes and devices: A right-sided pleural drain is seen. Lungs and pleura: There remains a moderate right-sided pneumothorax. Patchy bilateral infiltrates are seen. Likely small left-sided pleural effusion. No left-sided pneumothorax. Low lung volumes are noted. This causes a crowded appearance to the lung markings and limits evaluation. Mediastinum: The cardiac contours are within normal limits. The aorta demonstrates calcification and tortuosity. Bones and chest wall: No suspicious bony lesions. Age-appropriate bony degenerative changes are seen. Overlying soft tissues appear unremarkable. IMPRESSION: Improved right-sided pneumothorax, following pleural drain placement, yet with moderate remaining right-sided pneumothorax. Small left-sided pleural effusion. Dictated by: Aristeo Lovelace M.D. on 05/03/2021 at 12:12 Approved by: Aristeo Lovelace M.D. on 05/03/2021 at 12:14
[2021-05-03 13:09] LABS: Reflexed Lactate in 2 Hours Y
--- NOTE | 2021-05-03 13:40 | PC.NURSE ---
patients chest tube chamber has intermittent bubbling in the first chamber when the patient exhales. patients denies any pain. patients oxygen saturation is 100% on 2L NC. Dr. Tri macario.
--- NOTE | 2021-05-03 13:40 | PC.NURSE ---
patients chest tube chamber has intermittent bubbling in the first chamber when the patient exhales. patients denies any pain. patients oxygen saturation is 100% on room air. Dr. Tri macario.
[2021-05-03 13:44] LABS: Lactate 2HR (Lactic Acid Rflx) 4.5 mmol/L (0.7-2.1)
[2021-05-03] MEDS: PIPERACILLIN/TAZO 4.5 GM in SODIUM CHLORIDE 0.9% 100 ML 200 ML IV (16:07)
[2021-05-03 17:18] LABS: Lactate (Lactic Acid) 2.6 mmol/L (0.7-2.1)
--- NOTE | 2021-05-03 17:36 | PM.HP.1 ---
History of Present Illness History of Present Illness Date Patient Seen: 05/03/21 Time Patient Seen: 13:00 Chief complaint: Shortness of breath, feet swelling, yellow eyes Narrative: Ms. 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 She states that she is feeling completely her usual. However, at baseline she is bedbound, with poor appetite, with some shortness of breath. She was noted when checking in to clinic by staff that she appeared unwell. She did endorse shortness of breath. Because of that she was taken to the ED. She denied fevers/chills, cough. She notes she has lower extremity swelling but can not say a time course for that. She has pain on her backside, and was noted by nursing to that sacral ulcers. Otherwise she responds in only very short one word answers, does not offer much information as to how she is feeling. She had a recent admission in February for a pneumothorax that was thought associated with her known malignancy. In the ED, workup was done and she was noted to have tachypnea in the 20s, and high blood pressure. Labs notable for WBC of 10.4, hgb 10.1 plt 428, Na 137, creatinine 0.82. Lactate 5.0, lfts ok. Albumin 3.4. Procalcitonin 0.23. Chest xray showed moderate right sided pneumothorax, she had chest tube placed to suction with significant sanguinous fluid removed. Repeat chest xray showed continued pneumothorax but smaller than previously. She was given treatment and admitted for further treatment. Family history: patient did not answer when asked about family history Patient History Medical History Acute bilateral low back pain with bilateral sciatica Arthritis Bleeding ulcer (2017) GERD (gastroesophageal reflux disease) History of frequent headaches History of transfusion (01/16/14) History of transfusion of packed red blood cells (01/16/14) HTN (hypertension) Hx of radiation therapy Left rib fracture (09/2017) Metastasizing leiomyoma of uterus Port-A-Cath in place Wears dentures Wears glasses Surgical History History of colonoscopy with polypectomy (03/22/14) History of esophagogastroduodenoscopy (EGD) (05/22/18) History of esophagogastroduodenoscopy (EGD) (03/22/14) History of lung biopsy (06/2014) History of total hysterectomy with bilateral salpingo-oophorectomy (BSO) (01/2014) Hx of bilateral cataract extraction (02/15/15) Hx of dilation and curettage (01/16/14) Hx of shoulder surgery (2019) Status post dilation and curettage Family & Social History Social History: household members family Safety & Behavioral: Feels Safe in Current Unwilling to Answer Environment Been Physically Hurt or Unwilling to Answer Threatened By a Person Tobacco & Substance use: Smoking Status Unknown if ever smoked alcohol intake never alcohol intake frequency holiday/special occasion Substance Use Type does not use Meds Home Medications and Allergies Home Medications Medication Instructions Recorded Confirmed Type amlodipine 5 mg tablet 2 tab PO DAILY 05/06/18 03/14/21 History dextromethorphan-guaifenesin 5 10 ml PO Q4H #120 ml 02/22/21 03/01/21 Rx mg-100 mg/5 mL oral liquid (Robitussin Cough-Chest Congestion DM) metoclopramide HCl 5 mg tablet 5 mg PO Q6HR PRN 03/01/21 03/01/21 History solifenacin 10 mg tablet 10 mg PO DAILY 03/01/21 03/14/21 History sertraline 50 mg tablet 100 mg PO BEDTIME 03/04/21 03/14/21 History pazopanib 200 mg tablet (Votrient) 800 mg PO DAILY 30 Days #120 tab 03/06/21 03/14/21 Rx furosemide 20 mg tablet (Lasix) 20 mg PO QAM #5 tab 03/14/21 Rx levofloxacin 750 mg tablet 740 mg PO DAILY 03/14/21 03/14/21 History pantoprazole 40 mg tablet,delayed 40 mg PO DAILY 03/14/21 03/14/21 History release Allergies Allergy/AdvReac Type Severity Reaction Status Date / Time Pork/Porcine Containing Allergy Intermediate SWELLING, Verified 03/14/21 17:16 Products Vomiting Review of Systems Review of Systems Narrative: 14 systems reviewed and negative aside from what is noted in HPI Exam Vital Signs (past 8 hours): - 05/03/21 09:56 05/03/21 10:41 05/03/21 10:49 Temperature 96.3 F L 96.3 F L Pulse Rate 88 84 88 Respiratory Rate 24 44 H 25 H Blood Pressure 175/104 H 175/104 H Pulse Oximetry 98 100 100 05/03/21 11:00 05/03/21 11:30 05/03/21 12:00 Temperature Pulse Rate 86 88 86 Respiratory Rate 16 Blood Pressure Pulse Oximetry 100 100 100 05/03/21 12:20 05/03/21 12:30 05/03/21 12:34 Temperature Pulse Rate 88 100 H 83 Respiratory Rate 24 14 Blood Pressure 185/85 H 162/88 H Pulse Oximetry 100 100 100 05/03/21 13:00 05/03/21 13:30 05/03/21 13:31 Temperature Pulse Rate 81 83 83 Respiratory Rate 16 13 12 Blood Pressure 157/77 H 174/96 H Pulse Oximetry 100 100 100 05/03/21 15:41 Temperature 98.0 F Pulse Rate 96 H Respiratory Rate 17 Blood Pressure 180/113 H Pulse Oximetry 98 Oxygen Delivery Method Nasal Cannula Oxygen Flow Rate 2 Narrative Exam Narrative: GEN: chronically ill, frail, pale HEENT: moist mucous membranes, PERRL NECK: trachea midline, no JVD CV: regular rate and rhythm, with no murmurs PULM: decreased breath sounds on right, chest tube in place on right draining sanguinous fluid ABD: soft, nontender, nondistended, no organomegaly, normal bowel sounds EXT: warm and well perfused, 2+ edema in bilateral feet SKIN: +sacral decubitus ulcer NEURO: awake, alert and oriented, no focal deficits Objective Labs Result Diagrams: 05/03/21 11:00 05/03/21 11:00 Labs: Laboratory Results - last 24 hr 05/03/21 05/03/21 05/03/21 11:00 11:00 11:00 WBC 10.4 RBC 3.07 L Hgb 10.1 L Hct 31.1 L MCV 101.4 H MCH 32.8 MCHC 32.4 RDW 17.9 H Plt Count 428 H Neut % (Auto) 88.7 H Lymph % (Auto) 5.5 L [place] % (Auto) 4.9 Eos % (Auto) 0.5 L Baso % (Auto) 0.4 Neut # (Auto) 9300 H Lymph # (Auto) 600 L [place] # (Auto) 500 Eos # (Auto) 100 Baso # (Auto) 0 Sodium 137 Potassium 3.7 Chloride 104 Carbon Dioxide 20 L BUN 17 Creatinine 0.82 Estimated GFR > 60.0 BUN/Creatinine Ratio 20.7 Glucose 116 H Lactate 5.0 H* Calcium 8.9 Total Bilirubin 0.6 AST 32 ALT 15 Alkaline Phosphatase 73 Total Protein 6.5 Albumin 3.4 L Globulin 3.1 Albumin/Globulin Ratio 1.1 Lipase 38 Procalcitonin 0.23 05/03/21 05/03/21 13:18 16:59 WBC RBC Hgb Hct MCV MCH MCHC RDW Plt Count Neut % (Auto) Lymph % (Auto) [place] % (Auto) Eos % (Auto) Baso % (Auto) Neut # (Auto) Lymph # (Auto) [place] # (Auto) Eos # (Auto) Baso # (Auto) Sodium Potassium Chloride Carbon Dioxide BUN Creatinine Estimated GFR BUN/Creatinine Ratio Glucose Lactate 4.5 H* 2.6 H Calcium Total Bilirubin AST ALT Alkaline Phosphatase Total Protein Albumin Globulin Albumin/Globulin Ratio Lipase Procalcitonin Assessment & Plan Assessment & Plan narrative: Ms. 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 1. Acute hypoxemic respiratory failure with acute right pneumothorax -noted in ED to desat to the 80s -chest xray showed moderate pneumothorax -improving after chest tube placement -etiology likely is known metastases -continue chest tube to suction -surgery consulted to assist in management -chest xray in AM -for now start IV antibiotics to cover for possible pneumonia, get sputum cultures, f/u blood cultures 2. Elevated lactate -possibly related to hypovolemia, less likely infection, or possibly malignancy -improved with IV fluids 3. Sacral decubitus ulcer -no evidence of infection currently 4. Anorexia, failure to thrive, GERD -continue PPI 5. 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 Anemia -appears near baseline -no need for transfusion CODE: Full, patient wishes to be full code despite being informed about the significant morbidity, neurological catastrophe, and likely difficulty of extubation in the event she codes Proxy: Carrillo Nino, son I have utilized all available resources to review update, and confirm his current medications Time Spent With Patient Critical Care time: I spent a total of [] minutes of critical care time on this patient's care today; this time is exclusive of procedural time. Quality MIPS - Admit I confirm the patient?s Advance Care Plan is present, Code status is documented, Surrogate decision maker is in patient?s record [If Yes, STOP here]: Yes
[2021-05-03 19:03] LABS: Reflexed Lactate in 2 Hours Y
[2021-05-03 19:49] LABS: Lactate 2HR (Lactic Acid Rflx) 2.8 mmol/L (0.7-2.1)
[2021-05-03] MEDS: PIPERACILLIN/TAZO 3.375 GM in SODIUM CHLORIDE 0.9% 100 ML 25 ML IV (22:21)
[2021-05-03] MEDS: SERTRALINE 50 MG TABLET 100 MG PO (22:25)
[2021-05-03] MEDS: AMLODIPINE 5 MG TABLET 10 MG PO (22:43)
[2021-05-04] VITALS (14 sets, daily range): BP systolic 128–187; BP diastolic 75–111; PULSE 78–102; RESP 15–18; TEMP 36.2–36.8; O2SAT 94–99
--- NOTE | 2021-05-04 00:39 | PC.NURSE ---
Evening Shift Note- Patient arrived from ER prior to shift changed this afternoon. Patient alert and oriented and answers questions appropriatly. Patient answering mostly questions with short one or two word answers and sometimes doesnt answer at all. Talked with patients wade mccauley bring in chemo medications tomorrow, he also stated that she was not happy about being in the hospital again. Ballard cath was ordered but patient has so far refused ballard placed. Patient is incontinent with a brief on. photo taken of buttocks due to wounds noted. Area cleaned well and barrier cream applied. Q@H turns ordered. Edema noted to feet and to arms. extremities elevated. SCD's applied. Safety measures in place. Bed alarm activated. Call swartz and phone within reach. will continue to monitor.
[2021-05-04] MEDS: HYDRALAZINE 20 MG/ML VIAL IV (01:23)
[2021-05-04] MEDS: OXYCODONE IR 5 MG TABLET PO (02:52)
[2021-05-04] MEDS: PIPERACILLIN/TAZO 3.375 GM in SODIUM CHLORIDE 0.9% 100 ML 25 ML IV ×3 (06:41→21:16)
[2021-05-04] MEDS: PANTOPRAZOLE DR 40 MG TABLET PO (06:42)
[2021-05-04 06:53] LABS: Basophils Absolute Auto 0 /uL (0-100); Basophils Percent Auto 0.4 % (0-2); Eosinophils Absolute Auto 0 /uL (0-450); Eosinophils Percent Auto 0.3 % (2-4); Hematocrit 28.8 % (36-46); Hemoglobin 9.2 g/dL (12.0-16.0); Lymphocytes Absolute Auto 700 /uL (1100-4500); Lymphocytes Percent Auto 7.2 % (25-40); Mean Corpuscular HGB Conc 32.1 % (30-36); Mean Corpuscular Hemoglobin 32.6 PG (26-34); Mean Corpuscular Volume 101.5 fL (80-100); Monocytes Absolute Auto 500 /uL (0-900); Monocytes Percent Auto 5.6 % (3-14); Neutrophils Absolute Auto 8300 /uL (1500-7000); Neutrophils Percent Auto 86.5 % (50-75); Platelet Count 334 X10^3/uL (150-400); Red Blood Cell Count 2.84 X10^6/uL (4.0-5.2); White Blood Cell Count 9.6 X10^3/uL (4.5-11.0)
--- NOTE | 2021-05-04 07:00 | DI.RAD.S_ITS ---
PROCEDURE: XR CHEST 1V INDICATIONS: pneumothorax TECHNIQUE: One view of the chest was acquired. COMPARISON: [facility], CR, XR CHEST 1V, 05/03/2021, 12:27. FINDINGS: Surgical changes and devices: Right-sided chest tube is again seen unchanged from prior study. Lungs and pleura: Right-sided pneumothorax remains unchanged in size and appearance. Patchy infiltrate/atelectasis scattered in bilateral lung cerda are again seen. No left-sided pneumothorax. Small left pleural effusion is again seen and unchanged. Mediastinum: Mediastinal contours appear normal. Heart size is normal. Bones and chest wall: No suspicious bony lesions. Overlying soft tissues appear unremarkable. IMPRESSION: Persistent moderate size right pneumothorax unchanged from prior study. Stable bilateral patchy infiltrates and small left pleural effusion. No gross left-sided pneumothorax. Dictated by: Hernan Corona M.D. on 05/04/2021 at 8:52 Approved by: Hernan Corona M.D. on 05/04/2021 at 8:58
[2021-05-04 07:01] LABS: BUN Creatinine Ratio 20.6 (6-22); Blood Urea Nitrogen 20 mg/dL (7-17); Calcium 8.6 mg/dL (8.4-10.2); Carbon Dioxide 20 mmol/L (22-32); Chloride 107 mmol/L (98-107); Estimated Glomerular Filt Rate 56.1 mL/min (>60); Glucose 92 mg/dL (80-110); HEMOLYSIS < 15 (0-50); Magnesium 1.7 mg/dL (1.6-2.3); Sodium 137 mmol/L (137-145)
[2021-05-04 07:20] LABS: Add Manual Diff / Slide Review SLIDE REVIEW
[2021-05-04 07:21] LABS: Anisocytosis 1+; Polychromasia 1+
[2021-05-04 07:56] LABS: COVID19 - ADMIT (NP swab/PCR) Negative (Negative)
[2021-05-04] MEDS: AMLODIPINE 5 MG TABLET 10 MG PO (09:28)
[2021-05-04] MEDS: SOLIFENACIN 5 MG TABLET 10 MG PO (09:28)
--- NOTE | 2021-05-04 11:04 | PM.CALLCOV.1 ---
Call Coverage Note Note Date of Patient Contact: 05/04/21 Narrative of Care Provided: CT scans and multitude of CXR reviewed. Chronic effusion and PTX both related to metastatic disease. Patient sleeping. Will discuss Pleur X cath for her tomorrow vs chest tube removal and home. Oxygenation responded to chest tube placement wither is be reinflation of a portion of lung or drainage of effusion. Lung not fully re expanded. No recommendation of a 2nd tube.
--- NOTE | 2021-05-04 12:23 | CM.IDA ---
Discharge Planning/Care Management CM Discharge Assessment Start: 05/04/21 12:09 Freq: Status: Active Protocol: Document 05/04/21 12:09 URBANO (Rec: 05/04/21 12:17 URBANO [id number]) Discharge Planning Assessment Assigned Operating Room Tech Jenny, MSW DPOA/Assigned Designee Name wade Lagunas Contact Information [phone] (cell) (home) Advance Directives? Yes Advance Directives on File No History Provided By Patient,Medical Record Prior Living Arrangements House Household Members family Type of transporation used prior to Relies on Others admit Independent with ADL's No Is patient alert and oriented? Yes: Patient does not have her dentures. Slow to respond if she does respond Needs Assistance With Meal Prep,Managing Medications ,Home Chores / Shopping Comment Likely requires assist w/all ADLs d/t weakness, cannot get clear information from patient today, will need to discuss PLOF w/son when he arrives. Patient nods head yes when this ROAD CUTTER asks if she feels safe at home w/son. Comment Wants to go home. Barriers to Discharge Yes Comment Patient is frail and does not like to be in the hospital, however, does not want hospice service and would like to remain full code. Patient states she is here for issues related to her lung, not d/t cancer, educated patient w/ brief review of medical findings, which indicate recurrent pneumothorax, likely d/t metastatic cancer. Will allow the physician to review medical findings further. Discharge Plan Home Transportation Arrangement Son Referrals Initiated Other Additional Comment r/o need or acceptance of service Whiteboard Updated in Patient Room with Yes name and ext. # of Operating Room TechTEO An
--- NOTE | 2021-05-04 13:27 | PC.NURSE ---
Addendum entered by Laura Wang R.N. 05/04/21 15:44: Patient did eat 50% of her lunch with the help of the INSURANCE VERIFICATION REP feeding her. She voided and had a bowel movement in her brief, we have been repositioning her, patients bottom is open with what look like to be scratches. Area's are bleeding. Cleaned up and applied barrier cream. Original Note: Patient does not want to eat, or get up to the commode. She has not voided yet this shift and will be starting ivf NS at 75cc/hr. She has a chest tube to her r.side of chest. This is at 20mm of suction, no air leaks noted. Suction is continuous. Dr. Garcia is aware of no void yet. Patient has some skin issues that can be seen under physical assessment. She is asleep now and refuses lunch and water to drink.
[2021-05-04] MEDS: SODIUM CHLORIDE 0.9% 1,000 ML 75 ML IV (14:01)
--- NOTE | 2021-05-04 15:18 | PM.PN.1 ---
Subjective Subjective Date Patient Seen: 05/04/21 Time Patient Seen: 08:00 Interval history: Today she denies any symptoms. She responds with only one word answers. But she denies any pain or significant shortness of breath. Did discuss pleurx with her which she is not engaging in discussion with. Exam Vital Signs (past 8 hours): - 05/04/21 07:58 05/04/21 09:40 05/04/21 09:41 Temperature 97.9 F Pulse Rate 81 Respiratory Rate 18 Blood Pressure 140/85 Pulse Oximetry 98 99 99 05/04/21 12:15 Temperature 97.2 F L Pulse Rate 94 H Respiratory Rate 15 Blood Pressure 161/90 H Pulse Oximetry 97 Oxygen Delivery Method Room Air Oxygen Flow Rate 0 Narrative Exam Narrative: GEN: chronically ill, frail, pale HEENT: moist mucous membranes, PERRL NECK: trachea midline, no JVD CV: regular rate and rhythm, with no murmurs PULM: decreased breath sounds on right, chest tube in place on right draining sanguinous fluid ABD: soft, nontender, nondistended, no organomegaly, normal bowel sounds EXT: warm and well perfused, 2+ edema in bilateral feet SKIN: +sacral decubitus ulcer NEURO: awake, alert and oriented, no focal deficits Objective Labs Result Diagrams: 05/04/21 06:33 05/04/21 06:33 Labs: Laboratory Results - last 24 hr 05/03/21 05/03/21 05/04/21 16:59 19:17 00:46 WBC RBC Hgb Hct MCV MCH MCHC RDW Plt Count Neut % (Auto) Lymph % (Auto) [place] % (Auto) Eos % (Auto) Baso % (Auto) Neut # (Auto) Lymph # (Auto) [place] # (Auto) Eos # (Auto) Baso # (Auto) RBC Morphology Polychromasia Anisocytosis Sodium Potassium Chloride Carbon Dioxide BUN Creatinine Estimated GFR BUN/Creatinine Ratio Glucose Lactate 2.6 H 2.8 H Calcium Magnesium SARS-CoV-2 (PCR) Negative 05/04/21 05/04/21 06:33 06:33 WBC 9.6 RBC 2.84 L Hgb 9.2 L Hct 28.8 L MCV 101.5 H MCH 32.6 MCHC 32.1 RDW 18.0 H Plt Count 334 Neut % (Auto) 86.5 H Lymph % (Auto) 7.2 L [place] % (Auto) 5.6 Eos % (Auto) 0.3 L Baso % (Auto) 0.4 Neut # (Auto) 8300 H Lymph # (Auto) 700 L [place] # (Auto) 500 Eos # (Auto) 0 Baso # (Auto) 0 RBC Morphology See below Polychromasia 1+ H Anisocytosis 1+ H Sodium 137 Potassium 4.0 Chloride 107 Carbon Dioxide 20 L BUN 20 H Creatinine 0.97 Estimated GFR 56.1 L BUN/Creatinine Ratio 20.6 Glucose 92 Lactate Calcium 8.6 Magnesium 1.7 SARS-CoV-2 (PCR) REPLACED BY [facility] Medical History Acute bilateral low back pain with bilateral sciatica Arthritis Bleeding ulcer (2017) GERD (gastroesophageal reflux disease) History of frequent headaches History of transfusion (01/16/14) History of transfusion of packed red blood cells (01/16/14) HTN (hypertension) Hx of radiation therapy Left rib fracture (09/2017) Metastasizing leiomyoma of uterus Port-A-Cath in place Wears dentures Wears glasses Surgical History History of colonoscopy with polypectomy (03/22/14) History of esophagogastroduodenoscopy (EGD) (05/22/18) History of esophagogastroduodenoscopy (EGD) (03/22/14) History of lung biopsy (06/2014) History of total hysterectomy with bilateral salpingo-oophorectomy (BSO) (01/2014) Hx of bilateral cataract extraction (02/15/15) Hx of dilation and curettage (01/16/14) Hx of shoulder surgery (2018) Status post dilation and curettage Social History household members: family Smoking Status: Unknown if ever smoked alcohol intake: never Assessment & Plan Assessment & Plan narrative: Ms. 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 1. Acute hypoxemic respiratory failure with acute right pneumothorax -noted in ED to desat to the 80s -chest xray showed moderate pneumothorax -improving after chest tube placement -etiology likely is known metastases -continue chest tube to suction -surgery consulted to assist in management -chest xray in AM -for now start IV antibiotics to cover for possible pneumonia, get sputum cultures, f/u blood cultures -discussed with surgery that patient may benefit from pleurx given likelihood of reaccumulation of pneumo and pleural fluid 2. Elevated lactate -possibly related to hypovolemia, less likely infection, or possibly malignancy -improved with IV fluids 3. Sacral decubitus ulcer -no evidence of infection currently 4. Anorexia, failure to thrive, GERD -continue PPI 5. 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 Anemia -appears near baseline -no need for transfusion CODE: Full, patient wishes to be full code despite being informed about the significant morbidity, neurological catastrophe, and likely difficulty of extubation in the event she codes Proxy: Carrillo Nino, son I have utilized all available resources to review update, and confirm his current medications Time Spent With Patient Critical Care time: I spent a total of [] minutes of critical care time on this patient's care today; this time is exclusive of procedural time. Quality VTE Deep Vein Thrombosis/Pulmonary Embolism Present on Admission: No
--- NOTE | 2021-05-04 15:20 | DI.RAD.S_ITS ---
PROCEDURE: XR CHEST 1V INDICATIONS: f/u pneumothorax TECHNIQUE: One view of the chest was acquired. COMPARISON: [facility], , XR CHEST 1V, 05/04/2021, 5:21. FINDINGS: Surgical changes and devices: Small bore right chest tube, as before Lungs and pleura: Bilateral pulmonary densities are unchanged. No pleural effusions or pneumothorax. Mediastinum: Mediastinal contours appear normal. Heart size is normal. Moderately large hiatal hernia. Bones and chest wall: No suspicious bony lesions. Overlying soft tissues appear unremarkable. IMPRESSION: Right chest tube in place with no evidence of pneumothorax. Stable bilateral pulmonary densities. Moderately large hiatal hernia. Dictated by: Vignesh Winkler M.D. on 05/04/2021 at 16:45 Approved by: Vignesh Winkler M.D. on 05/04/2021 at 16:46
--- NOTE | 2021-05-04 15:41 | CM.DPNOTE ---
DCP Note Met w/patient and son Carrillo at bedside this afternoon. Son Carrillo appears to have poor hygiene habits, he appears agitated, denies having needs, appears to have open sores over his upper extremities. This LUMBER SALES SUPERVISOR attempted conversation w/patient and she did not respond. Son states we're private people. Son explains patient and he live in a house in [place]. Son takes patient with him to his doctor appts, which he explains are often, d/t an undiagnosed skin condition and weekly trips to [facility] for wound care. Carrillo confirms he and his mom have [place] transport but do not use, Carrillo states he cannot keep his feet up if he takes [place] transport (?) Carrillo uses a state provided gas voucher. Carrillo admits he helps patient w/all ADLs currently, since she has become weaker, patient is currently incontinent. This LUMBER SALES SUPERVISOR discusses sacral ulcer and Carrillo states she keeps slipping down in recliner. Carrillo asks why patient's lungs continue to collapse? Referred to RN team and hospitalist to discuss clinical findings Carrillo plans to take patient home when medically cleared. Discussed Home health, Carrillo agreeable, states he does not want [facility]. Patient silent throughout this visit, grimaces slightly and will not tell this LUMBER SALES SUPERVISOR why she grimaced. Updated RN Laura and oncoming evening shift RN Alma. Will plan to follow closely as medical plan of care unfolds. URBANO
[2021-05-04 17:12] LABS: Lactate (Lactic Acid) 1.6 mmol/L (0.7-2.1)
[2021-05-04 17:13] LABS: Blood Urea Nitrogen 22 mg/dL (7-17); Calcium 8.3 mg/dL (8.4-10.2); Carbon Dioxide 20 mmol/L (22-32); Chloride 106 mmol/L (98-107); Estimated Glomerular Filt Rate 48.6 mL/min (>60); Glucose 81 mg/dL (80-110); HEMOLYSIS < 15 (0-50); Sodium 135 mmol/L (137-145)
[2021-05-04] MEDS: SERTRALINE 50 MG TABLET 100 MG PO (21:16)
[2021-05-05] VITALS (11 sets, daily range): BP systolic 148–161; BP diastolic 80–99; PULSE 80–96; RESP 14–16; TEMP 35.8–37; O2SAT 96–97
[2021-05-05] MEDS: NYSTATIN POWDER 15GM 1 APPLIC TOP ×2 (03:50→20:18)
[2021-05-05] MEDS: SODIUM CHLORIDE 0.9% 1,000 ML 75 ML IV ×2 (03:50→17:56)
[2021-05-05 04:19] LABS: Appearance Urine UA SL CLOUDY; Bilirubin Urine UA NEGATIVE (NEGATIVE); Color Urine UA YELLOW; Glucose Urine UA NEGATIVE (Negative); Ketones Urine UA NEGATIVE (NEGATIVE); Leukocyte Esterase Urine UA NEGATIVE (NEGATIVE); Nitrite Urine UA NEGATIVE (Negative); Occult Blood Urine UA 2+ (Negative); Protein Urine UA 2+ (Negative); Specific Gravity Urine UA 1.025 (1.000-1.035); Urobilinogen Urine UA 0.2 E.U./dL (0.2)
[2021-05-05 04:34] LABS: Amorphous Sediment Urine 3+; Bacteria Urine None Seen; Culture Indicated Urine Cult Not Indicated; RBC Urine 1-5/HPF (0-5/HPF); WBC Urine 0-1/HPF (0-5/HPF)
[2021-05-05] MEDS: PANTOPRAZOLE DR 40 MG TABLET PO (06:32)
[2021-05-05] MEDS: PIPERACILLIN/TAZO 3.375 GM in SODIUM CHLORIDE 0.9% 100 ML 25 ML IV (06:32)
[2021-05-05] MEDS: PAZOPANIB 200 MG 800 EACH PO (09:02)
[2021-05-05] MEDS: SOLIFENACIN 5 MG TABLET 10 MG PO (09:02)
[2021-05-05] MEDS: AMLODIPINE 5 MG TABLET 10 MG PO (09:03)
--- NOTE | 2021-05-05 09:35 | P.PN_ITS ---
Subjective Subjective Date Patient Seen: 05/05/21 Time Patient Seen: 09:35 Interval history: Patient declining Pleur X catheter. Wants to discuss with Dr. Burkett who is on vacation. Exam Vital Signs (past 8 hours): - 05/05/21 03:27 05/05/21 05:00 05/05/21 09:00 Temperature 96.5 F L 97.3 F L Pulse Rate 96 H 89 Respiratory Rate 16 15 Blood Pressure 150/80 H 161/81 H Pulse Oximetry 96 96 97 Oxygen Delivery Method Room Air Oxygen Flow Rate 0 Const General: frail appearing and ill appearing Nutritional Appearance: cachectic Orientation: alert and awake HENMT Head: normocephalic and atraumatic Eyes Sclera: sclerae normal Neck Neck: trachea midline Chest Chest: normal inspection of the chest Resp Effort & Inspection: able to speak in complete sentences and decreased respiratory effort Cardio Rate: regular rate Rhythm: regular rhythm GI Palpation: soft Neuro Cognition: normal cognition Psych Mental Status: mental status grossly normal Mood: irritable mood Affect: indifferent Attitude: guarded and avoids eye contact Judgment: limited Objective Labs Result Diagrams: 05/04/21 06:33 05/04/21 16:50 Labs: Laboratory Results - last 24 hr 05/04/21 05/04/21 05/05/21 16:50 16:50 04:13 Sodium 135 L Potassium 4.0 Chloride 106 Carbon Dioxide 20 L BUN 22 H Creatinine 1.10 H Estimated GFR 48.6 L BUN/Creatinine Ratio 20.0 Glucose 81 Lactate 1.6 Calcium 8.3 L Urine Color Yellow Urine Appearance Sl cloudy Urine pH 5.0 Ur Specific [place] 1.025 Urine Protein 2+ H Urine Glucose (UA) Negative Urine Ketones Negative Urine Occult Blood 2+ H Urine Nitrate Negative Urine Bilirubin Negative Urine Urobilinogen 0.2 Ur Leukocyte Esterase Negative Urine RBC 1-5/hpf Urine WBC 0-1/hpf Amorphous Sediment 3+ Urine Bacteria None seen Ur Culture Indicated? Cult not indicated [facility] Medical History Acute bilateral low back pain with bilateral sciatica Arthritis Bleeding ulcer (2017) GERD (gastroesophageal reflux disease) History of frequent headaches History of transfusion (01/16/14) History of transfusion of packed red blood cells (01/16/14) HTN (hypertension) Hx of radiation therapy Left rib fracture (09/2017) Metastasizing leiomyoma of uterus Port-A-Cath in place Wears dentures Wears glasses Surgical History History of colonoscopy with polypectomy (03/22/14) History of esophagogastroduodenoscopy (EGD) (05/22/18) History of esophagogastroduodenoscopy (EGD) (03/22/14) History of lung biopsy (06/2014) History of total hysterectomy with bilateral salpingo-oophorectomy (BSO) (01/2014) Hx of bilateral cataract extraction (02/15/15) Hx of dilation and curettage (01/16/14) Hx of shoulder surgery (2018) Status post dilation and curettage Social History household members: family Smoking Status: Unknown if ever smoked alcohol intake: never Assessment & Plan Assessment & Plan narrative: Right PTX with malignant effusion responding to chest tube. Decided not to do Pleur X catheter. Plan: continue chest tube. Place on water seal. Output >300ml yesterday. Waiting for decrease in output, not able to do chemical pleuradesis or safely remove at this time. Time Spent With Patient Time with patient: 30 to 49 minutes with 50% spent counseling/coordinating care Critical Care time: I spent a total of [] minutes of critical care time on this patient's care today; this time is exclusive of procedural time. Quality VTE Deep Vein Thrombosis/Pulmonary Embolism Present on Admission: No
--- NOTE | 2021-05-05 10:59 | PC.NURSE ---
Patient with flat affect, she does not talk or make eye contact with you. Its more of just yes and no answers. Patient has many skin issues that can be seen under physical assessment. She does have scratches to her bottom that we are putting barrier cream on and some yeast in her folds, applying powder. Chest tube to water seal now per . Dressing to r.rib cage is cdi and in place. No water leaks or leaks noted in chamber or tube. She is putting out minimal serous fluid in chamber. Resting now, took all of her medications whole with water. Resting comfortably and ballard catheter is putting out minimal yellow urine.
--- NOTE | 2021-05-05 12:09 | P.PN_ITS ---
Subjective Subjective Date Patient Seen: 05/05/21 Interval history: Patient is sleeping and not answering questions this time. Her son is in the room and helpful with decision making. He is consenting for her to have PleurX catheter and [facility] Currently chest tube is on water seal with 60 ml output overnight. Exam Vital Signs (past 8 hours): - 05/05/21 05:00 05/05/21 09:00 Temperature 97.3 F L Pulse Rate 89 Respiratory Rate 15 Blood Pressure 161/81 H Pulse Oximetry 96 97 Oxygen Delivery Method Room Air Oxygen Flow Rate 0 Narrative Exam Narrative: General: Elderly female NAD Lungs: Clear Heart: Regular rhythm Skin: Previously noted sacral decubitus ulcer Objective Labs Result Diagrams: 05/04/21 06:33 05/04/21 16:50 Labs: Laboratory Results - last 24 hr 05/04/21 05/04/21 05/05/21 16:50 16:50 04:13 Sodium 135 L Potassium 4.0 Chloride 106 Carbon Dioxide 20 L BUN 22 H Creatinine 1.10 H Estimated GFR 48.6 L BUN/Creatinine Ratio 20.0 Glucose 81 Lactate 1.6 Calcium 8.3 L Urine Color Yellow Urine Appearance Sl cloudy Urine pH 5.0 Ur Specific [place] 1.025 Urine Protein 2+ H Urine Glucose (UA) Negative Urine Ketones Negative Urine Occult Blood 2+ H Urine Nitrate Negative Urine Bilirubin Negative Urine Urobilinogen 0.2 Ur Leukocyte Esterase Negative Urine RBC 1-5/hpf Urine WBC 0-1/hpf Amorphous Sediment 3+ Urine Bacteria None seen Ur Culture Indicated? Cult not indicated [facility] Medical History Acute bilateral low back pain with bilateral sciatica Arthritis Bleeding ulcer (2017) GERD (gastroesophageal reflux disease) History of frequent headaches History of transfusion (01/16/14) History of transfusion of packed red blood cells (01/16/14) HTN (hypertension) Hx of radiation therapy Left rib fracture (09/2017) Metastasizing leiomyoma of uterus Port-A-Cath in place Wears dentures Wears glasses Surgical History History of colonoscopy with polypectomy (03/22/14) History of esophagogastroduodenoscopy (EGD) (05/22/18) History of esophagogastroduodenoscopy (EGD) (03/22/14) History of lung biopsy (06/2014) History of total hysterectomy with bilateral salpingo-oophorectomy (BSO) (01/2014) Hx of bilateral cataract extraction (02/15/15) Hx of dilation and curettage (01/16/14) Hx of shoulder surgery (2019) Status post dilation and curettage Social History household members: family Smoking Status: Unknown if ever smoked alcohol intake: never Assessment & Plan Assessment & Plan narrative: Ms. 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 1. Acute hypoxemic respiratory failure with acute right pneumothorax -noted in ED to desat to the 80s -chest xray showed moderate pneumothorax -improving after chest tube placement -etiology likely is known metastases -continue chest tube as directed by surgery -Dr. Santiago on consult for surgery -discontinue antibiotic, no evidence of pneumonia -patient's son is consenting to PleurX catheter 2. Elevated lactate, resolved -possibly related to hypovolemia, less likely infection, or possibly malignancy -improved with IV fluids 3. Sacral decubitus ulcer -no evidence of infection currently 4. Anorexia, failure to thrive, GERD -continue PPI per home routine 5. 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 Anemia -appears near baseline -no need for transfusion 7. Hypertension, stable -continue amlodipine DISP: Consider SNF rehab CODE: Full, patient wishes to be full code despite being informed about the significant morbidity, neurological catastrophe, and likely difficulty of extubation in the event she codes Proxy: Carrillo Nino, son Time Spent With Patient Critical Care time: I spent a total of [] minutes of critical care time on this patient's care today; this time is exclusive of procedural time. Quality VTE Deep Vein Thrombosis/Pulmonary Embolism Present on Admission: No
--- NOTE | 2021-05-05 17:09 | PC.NURSE ---
Addendum entered by Renetta Soler R.N. 05/05/21 21:46: Chest tube remains intact to right thoracic region. Tube is to water seal. Pt continues to deny pain. BL heels floated and pt placed on waffle cushion. Groin and periarea is reddened. Washed with warm water and dried and nystatin powder applied. BL calf scd's in place. Bleeding noted to left buttock open wounds. Cleansed and dried. Barrier cream applied and peripad placed against skin and brief underneath pt. Unsure if catheter is leaking as reported on dayshift. If ballard catheter is indeed leaking, this is minimal. Offered pt sips water which pt accepts, but does not initiate. Scant urinary output per ballard, but minimal oral intake this evening shift. Addendum entered by Renetta Soler R.N. 05/05/21 19:20: Dinner set up for pt and pt does demonstrate ability to feed self, but with little interest. Ensure provided and sips encouraged. Original Note: Pt pale, lying quietly in bed. Opens eyes to voice. Denies pain, denies nausea. Follows commands appropriately. Requires assistance to turn in bed for assessment. Chest tube to right thoracic region is secured in multiple places with tape. Chest tube to water seal and atrium upright on floor. Dressing in place to right thoracic region with small amount shadowy drainage visible to dressing right proximal axilla. BL calf scd's in place. Position change off of buttocks with pillows to offload. Ballard to gravity. No signs of leakage. Brief is dry.
--- NOTE | 2021-05-05 18:31 | PC.NURSE ---
1645- Patient is in bed resting. She is alert and oriented to name, place and situation. Chest tube is intact and to water seal. The dressing is intact with small amount of shadowing present. Crackles are present upon auscultation of right lung in all cerda. Left lung sounds are diminished over all cerda. Patient is pale, but denies any pain, SOB, nausea or vomiting. Ferreira is in place and draining. She was a 2 person assist to move in the bed and several open and closed wounds on her bottom were present. Repositioning was implemented to alleviate pressure. Bed alarm is on and call light is in reach.
[2021-05-05] MEDS: SERTRALINE 50 MG TABLET 100 MG PO (20:07)
[2021-05-06] VITALS (14 sets, daily range): BP systolic 149–158; BP diastolic 75–90; PULSE 80–92; RESP 18–20; TEMP 36.4–36.8; O2SAT 95–98
[2021-05-06] MEDS: SODIUM CHLORIDE 0.9% 1,000 ML 75 ML IV (06:54)
--- NOTE | 2021-05-06 07:06 | DI.RAD.S_ITS ---
PROCEDURE: XR CHEST 1V INDICATIONS: pneumothorax TECHNIQUE: One view of the chest was acquired. COMPARISON: [facility], CT, CT ANGIO CHEST PE PROTOCOL, 03/14/2021, 19:12. [facility], CR, XR CHEST 1V, 05/04/2021, 5:21. [facility], CR, XR CHEST 1V, 05/03/2021, 12:27. [facility], CR, XR CHEST 1V, 05/03/2021, 10:10. [facility], CR, XR CHEST 1V, 05/04/2021, 15:24. FINDINGS: Surgical changes and devices: There is a stable right-sided pleural drain. Lungs and pleura: There is minimal, stable right-sided pneumothorax. Mild blunting of the right costophrenic angle is seen. Mediastinum: The cardiac contours are within normal limits. The aorta demonstrates calcification and tortuosity. There is a large hiatal hernia. Bones and chest wall: No suspicious bony lesions. Age-appropriate bony degenerative changes are seen. Overlying soft tissues appear unremarkable. IMPRESSION: Right-sided pleural drain, with minimal residual right-sided pneumothorax. Small pleural effusion where versus atelectasis seen at the right lung base. Dictated by: Aristeo Lovelace M.D. on 05/06/2021 at 7:04 Approved by: Aristeo Lovelace M.D. on 05/06/2021 at 7:06
--- NOTE | 2021-05-06 07:12 | PM.PN.1 ---
Subjective Subjective Date Patient Seen: 05/06/21 Time Patient Seen: 07:00 Interval history: She continues to deny pain or shortness of breath. She continues to be withdrawn emotionally. Exam Vital Signs (past 8 hours): - 05/06/21 01:00 05/06/21 01:30 05/06/21 03:59 Temperature 97.9 F 98.3 F Pulse Rate 86 85 Respiratory Rate 20 20 Blood Pressure 157/88 H 150/78 H Pulse Oximetry 97 97 97 05/06/21 05:00 Temperature Pulse Rate Respiratory Rate Blood Pressure Pulse Oximetry 97 Oxygen Delivery Method Room Air Oxygen Flow Rate 0 Narrative Exam Narrative: GEN: chronically ill, frail, pale HEENT: moist mucous membranes, PERRL NECK: trachea midline, no JVD CV: regular rate and rhythm, with no murmurs PULM: decreased breath sounds on right, chest tube in place on right draining sanguinous fluid ABD: soft, nontender, nondistended, no organomegaly, normal bowel sounds EXT: warm and well perfused, 2+ edema in bilateral feet SKIN: +sacral decubitus ulcer NEURO: awake, alert and oriented, no focal deficits Objective Labs Result Diagrams: 05/04/21 06:33 05/04/21 16:50 PFSH Medical History Acute bilateral low back pain with bilateral sciatica Arthritis Bleeding ulcer (2017) GERD (gastroesophageal reflux disease) History of frequent headaches History of transfusion (01/16/14) History of transfusion of packed red blood cells (01/16/14) HTN (hypertension) Hx of radiation therapy Left rib fracture (09/2017) Metastasizing leiomyoma of uterus Port-A-Cath in place Wears dentures Wears glasses Surgical History History of colonoscopy with polypectomy (03/22/14) History of esophagogastroduodenoscopy (EGD) (05/22/18) History of esophagogastroduodenoscopy (EGD) (03/22/14) History of lung biopsy (06/2014) History of total hysterectomy with bilateral salpingo-oophorectomy (BSO) (01/2014) Hx of bilateral cataract extraction (02/15/15) Hx of dilation and curettage (01/16/14) Hx of shoulder surgery (2019) Status post dilation and curettage Social History household members: family Smoking Status: Unknown if ever smoked alcohol intake: never Assessment & Plan Assessment & Plan narrative: Ms. 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 1. Acute hypoxemic respiratory failure with acute right pneumothorax -noted in ED to desat to the 80s -chest xray showed moderate pneumothorax -improving after chest tube placement -etiology likely is known metastases -continue chest tube as directed by surgery -Dr. Santiago on consult for surgery -discontinue antibiotic, no evidence of pneumonia -patient's son is consenting to PleurX catheter with patient now in agreement 2. Elevated lactate, resolved -possibly related to hypovolemia, less likely infection, or possibly malignancy -improved with IV fluids 3. Sacral decubitus ulcer -no evidence of infection currently 4. Anorexia, failure to thrive, GERD -continue PPI per home routine 5. 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 Anemia -appears near baseline -no need for transfusion 7.? Hypertension, stable -continue amlodipine DISP:? Consider SNF rehab CODE: Full, patient wishes to be full code despite being informed about the significant morbidity, neurological catastrophe, and likely difficulty of extubation in the event she codes Proxy: Carrillo Nino, son Time Spent With Patient Critical Care time: I spent a total of [] minutes of critical care time on this patient's care today; this time is exclusive of procedural time. Quality VTE Deep Vein Thrombosis/Pulmonary Embolism Present on Admission: No
[2021-05-06 08:04] LABS: Cortisol AM (Before 10AM) 11.2 ug/dL (4.46-22.7)
[2021-05-06] MEDS: SOLIFENACIN 5 MG TABLET 10 MG PO (08:21)
[2021-05-06] MEDS: AMLODIPINE 5 MG TABLET 10 MG PO (08:21)
[2021-05-06] MEDS: PANTOPRAZOLE DR 40 MG TABLET PO (08:21)
[2021-05-06] MEDS: PAZOPANIB 200 MG 800 EACH PO (08:22)
--- NOTE | 2021-05-06 09:05 | DIET.PN1 ---
Dietary Progress Note Assessment: 75y F admitted for failure to thrive and pneumothorax referred to nutrition for poor appetite and anasarca. From prior admit in February 2021 pt reports considerable stress in life without devulging details. States this cancer is way down on my list of worries. Pt lives c son [place] farm. 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 From prior admit in February 2021, pt states she could eat chicken, green beans, winter squash c butter and black pepper every day and be happy. Pts POs this stay <50%, nursing providing ONS Ensure with encouragement to sip. Pts current body weight higher than others on file, however, fluid retention and chest tube hardware likely masking true weight. Recent imaging in January 2021 shows patulous esophagus, large hiatal hernia, increased metastatic lesions in lungs and liver, new ascites. Ht: 167.64 cm Wt: 68.039 kg BMI: 24.2 Last BM: 05/02/21 (05/03/21 20:35) MNA: 9 Shiv Score: 12 Diet: 05/03/21 Dinner Heart Healthy Diet Diet Modifications: Nutrition Percent Meal Consumed 25% 05/05/21 22:13 Percent Meal Consumed 50% 05/05/21 14:46 Percent Meal Consumed 25% 05/05/21 09:00 Percent Meal Consumed 30 05/04/21 18:16 Percent Meal Consumed 50% 05/04/21 14:47 Percent Meal Consumed 0% 05/04/21 10:10 Labs: RBC 2.84 X10^6/uL (4.0-5.2) L 05/04/21 06:33 Hgb 9.2 g/dL (12.0-16.0) L 05/04/21 06:33 Hct 28.8 % (36-46) L 05/04/21 06:33 Creatinine 1.10 mg/dL (0.52-1.04) H 05/04/21 16:50 Lactate 1.6 mmol/L (0.7-2.1) 05/04/21 16:50 Nutrition Diagnosis: Moderate Malnutrition r/t poor POs aeb pt with metastatic cancer, pt significantly deconditioned since last hospitalization, nearly bedbound with anasarca and bleeding sacral decubitus, POs this hospitalization <50% EER. Interventions: 1. Recc ONS Ensure Enlive bid in addition to meal trays providing 50% kcals and 90% protein needs to support nutrition status. EER: 1750kcals (30kcal/kg per PCM), 65g PRO (1.1g/kg per PCM) Monitoring/Evaluations: POs Electronically Signed by: Sofie Liz 05/06/21 09:05 Clinical Dietitian [address] [id number]
--- NOTE | 2021-05-06 09:49 | DI.RAD.S_ITS ---
PROCEDURE: XR CHEST 1V INDICATIONS: right chest tube removed. TECHNIQUE: One view of the chest was acquired. COMPARISON: [facility], CR, XR CHEST 1V, 05/04/2021, 15:24. [facility], CR, XR CHEST 1V, 05/04/2021, 5:21. [facility], CR, XR CHEST 1V, 05/03/2021, 12:27. [facility], CR, XR CHEST 1V, 05/03/2021, 10:10. [facility], CR, XR CHEST 1V, 05/06/2021, 6:46. FINDINGS: Surgical changes and devices: The previously seen right-sided pleural drain has been removed. Lungs and pleura: No tatianna pneumothorax is seen. Low lung volumes are noted. This causes a crowded appearance to the lung markings and limits evaluation. Patchy pulmonary opacities are seen. Mediastinum: The cardiac contours are within normal limits. The aorta demonstrates calcification and tortuosity. Bones and chest wall: No suspicious bony lesions. Age-appropriate bony degenerative changes are seen. Mild dextroconvex scoliotic curvature is seen. Overlying soft tissues appear unremarkable. IMPRESSION: Interval removal of the right-sided pleural drain, without a pneumothorax seen. Dictated by: Aristeo Lovelace M.D. on 05/06/2021 at 9:06 Approved by: Aristeo Lovelace M.D. on 05/06/2021 at 9:07
--- NOTE | 2021-05-06 09:50 | PM.PN.1 ---
Subjective Subjective Date Patient Seen: 05/06/21 Time Patient Seen: 09:53 Exam Vital Signs (past 8 hours): - 05/06/21 03:59 05/06/21 05:00 Temperature 98.3 F Pulse Rate 85 Respiratory Rate 20 Blood Pressure 150/78 H Pulse Oximetry 97 97 Oxygen Delivery Method Room Air Oxygen Flow Rate 0 Const General: cooperative and comfortable Orientation: alert and awake Neck Neck: trachea midline Chest Other: chest tube right wall Resp Effort & Inspection: normal respiratory effort and able to speak in complete sentences Other: 97% on room air. drainage 30ml in 24 hrs Cardio Rate: regular rate Rhythm: regular rhythm Psych Appearance: grossly normal Attitude: cooperative Objective Labs Result Diagrams: 05/04/21 06:33 05/04/21 16:50 Labs: Laboratory Results - last 24 hr 05/06/21 06:10 Cortisol AM Sample 11.2 PFSH Medical History Acute bilateral low back pain with bilateral sciatica Arthritis Bleeding ulcer (2017) GERD (gastroesophageal reflux disease) History of frequent headaches History of transfusion (01/16/14) History of transfusion of packed red blood cells (01/16/14) HTN (hypertension) Hx of radiation therapy Left rib fracture (09/2017) Metastasizing leiomyoma of uterus Port-A-Cath in place Wears dentures Wears glasses Surgical History History of colonoscopy with polypectomy (03/22/14) History of esophagogastroduodenoscopy (EGD) (05/22/18) History of esophagogastroduodenoscopy (EGD) (03/22/14) History of lung biopsy (06/2014) History of total hysterectomy with bilateral salpingo-oophorectomy (BSO) (01/2014) Hx of bilateral cataract extraction (02/15/15) Hx of dilation and curettage (01/16/14) Hx of shoulder surgery (2018) Status post dilation and curettage Social History household members: family Smoking Status: Unknown if ever smoked alcohol intake: never Assessment & Plan Assessment & Plan narrative: Recurrent PTX on water seal. Decreased fluid out. Plan: Dr. Garcia spoke with son who is agrees with Pleur X cath. Given lack of symptoms and need to place the Pleur X lower on chest wall, I removed the current chest tube. Pleur X cath tomorrow, sooner if needed. COVID-19 COVID-19 status: Negative Time Spent With Patient Time with patient: 30 to 49 minutes with 50% spent counseling/coordinating care Critical Care time: I spent a total of [] minutes of critical care time on this patient's care today; this time is exclusive of procedural time. Quality VTE Deep Vein Thrombosis/Pulmonary Embolism Present on Admission: No
--- NOTE | 2021-05-06 13:22 | CM.DPC ---
DCP Cont: Per MD, pt's chest tube with suction was discontinued today and will need to observe pt to determine if fluid will begin to collect or not and pt may need to have further surgical intervention if fluid continues to collect. Potential for PT/OT orders when pt more medically appropriate towards determining her d/c planning needs. Plan: SW to continue to follow closely for POC and d/c planning needs. TEO Mason
--- NOTE | 2021-05-06 15:24 | PC.NURSE ---
Pt A&Ox2-3 agreeable to bath, nail care and lucas care this shift. Agreeable to repositioning. Able to feed herself with preparation and drinking, requests tea. Taking po medications without difficulty. She continues to deny pain.Pt with ballard in place 300cc obtained this shift dark yellow. IVF NS@75ml per hour. Noted patient without teeth, having difficulty chewing and requested mechanical soft diet. Pt's son at bedside this afternoon, with questions about her procrit injections and labs. Plan for NPO after midnight for Pleural XL cath 05/07. Continuous monitoring.
--- NOTE | 2021-05-06 16:32 | PC.NURSE ---
Addendum entered by Renetta Soler R.N. 05/06/21 22:18: Mostly sleeping unless awoken by staff for care. Takes sips ensure when offered. No swallow deficit. Room air 96%. No concerns or complaints verbalized. Refuses hs meds. Addendum entered by Renetta Soler R.N. 05/06/21 19:42: Pt was turned to visualize dressing to buttocks. Large allevyn gentle border dressing is dry and intact to left buttock. BL groin cleansed with warm water washcloth and nystatin powder applied to erythema to skin. Pillows placed to offload pressure to buttocks. Addendum entered by Renetta Soler R.N. 05/06/21 18:14: Declines dinner, but agrees to chocolate ensure. Will sip when staff offers. Flat affect with minimal conversation with staff. Addendum entered by Renetta Soler R.N. 05/06/21 18:02: Dr. Garcia made aware of pt's low urinary output, generalized edema and crackles to posterior lung cerda. Also made aware of pt's poor po intake. Original Note: Pt in bed with head elevated. Is awake, alert, nibbling at hamburger which son has brought in for pt. Son is at bedside. Will allow pt time to enjoy meal and company of family member.
[2021-05-06] MEDS: FUROSEMIDE 20 MG/2 ML VIAL IV (18:08)
[2021-05-06] MEDS: NYSTATIN POWDER 15GM 1 APPLIC TOP (19:38)
[2021-05-06] MEDS: SODIUM CHLORIDE 0.9% FLUSH 10 ML IV (20:33)
[2021-05-07] VITALS (13 sets, daily range): BP systolic 124–158; BP diastolic 69–78; PULSE 85–90; RESP 14–22; TEMP 36.4–36.9; O2SAT 93–97
[2021-05-07 08:07] LABS: Hematocrit 23.8 % (36-46); Hemoglobin 7.8 g/dL (12.0-16.0); Mean Corpuscular HGB Conc 32.8 % (30-36); Mean Corpuscular Hemoglobin 32.8 PG (26-34); Mean Corpuscular Volume 100.2 fL (80-100); Platelet Count 279 X10^3/uL (150-400); Red Blood Cell Count 2.38 X10^6/uL (4.0-5.2); Red Cell Distribution Width 18.7 % (11.6-14.8); White Blood Cell Count 6.8 X10^3/uL (4.5-11.0)
[2021-05-07 08:19] LABS: BUN Creatinine Ratio 19.5 (6-22); Blood Urea Nitrogen 24 mg/dL (7-17); Calcium 8.1 mg/dL (8.4-10.2); Carbon Dioxide 20 mmol/L (22-32); Chloride 108 mmol/L (98-107); Estimated Glomerular Filt Rate 42.7 mL/min (>60); Glucose 82 mg/dL (80-110); HEMOLYSIS 16 (0-50); Potassium 3.5 mmol/L (3.4-5.1); Sodium 135 mmol/L (137-145)
--- NOTE | 2021-05-07 08:48 | P.CONS_ITS ---
History of Present Illness Consult details Date Patient Seen: 05/07/21 Chief complaint: Shortness of breath, feet swelling, yellow eyes Reason for consult: recurrent pleural effusion Meds Home Medications and Allergies Home Medications Medication Instructions Recorded Confirmed Type amlodipine 5 mg tablet 5 mg PO DAILY 05/06/18 05/04/21 History dextromethorphan-guaifenesin 5 10 ml PO Q4H #120 ml 02/22/21 03/01/21 Rx mg-100 mg/5 mL oral liquid (Robitussin Cough-Chest Congestion DM) metoclopramide HCl 5 mg tablet 5 mg PO Q6HR PRN 03/01/21 03/01/21 History solifenacin 10 mg tablet 10 mg PO DAILY 03/01/21 05/04/21 History sertraline 50 mg tablet 100 mg PO BEDTIME 03/04/21 05/04/21 History pazopanib 200 mg tablet (Votrient) 800 mg PO DAILY 30 Days #120 tab 03/06/21 05/04/21 Rx furosemide 20 mg tablet (Lasix) 20 mg PO QAM #5 tab 03/14/21 05/03/21 Rx pantoprazole 40 mg tablet,delayed 40 mg PO DAILY 03/14/21 03/14/21 History release levothyroxine 50 mcg tablet 50 mcg DAILY 05/04/21 05/04/21 History Allergies Allergy/AdvReac Type Severity Reaction Status Date / Time Pork/Porcine Containing Allergy Intermediate SWELLING, Verified 03/14/21 17:16 Products Vomiting Exam Vital Signs (past 8 hours): - 05/07/21 04:00 05/07/21 04:25 Temperature 97.5 F L Pulse Rate 85 Respiratory Rate 18 Blood Pressure 147/75 H Pulse Oximetry 96 95 Oxygen Delivery Method Room Air Oxygen Flow Rate 0 Objective Labs Result Diagrams: 05/07/21 07:55 05/07/21 07:55 Labs: Laboratory Results - last 24 hr 05/07/21 05/07/21 07:55 07:55 WBC 6.8 RBC 2.38 L Hgb 7.8 L Hct 23.8 L MCV 100.2 H MCH 32.8 MCHC 32.8 RDW 18.7 H Plt Count 279 Sodium 135 L Potassium 3.5 Chloride 108 H Carbon Dioxide 20 L BUN 24 H Creatinine 1.23 H Estimated GFR 42.7 L BUN/Creatinine Ratio 19.5 Glucose 82 Calcium 8.1 L [facility] Medical History Acute bilateral low back pain with bilateral sciatica Arthritis Bleeding ulcer (2018) GERD (gastroesophageal reflux disease) History of frequent headaches History of transfusion (01/16/14) History of transfusion of packed red blood cells (01/16/14) HTN (hypertension) Hx of radiation therapy Left rib fracture (09/2017) Metastasizing leiomyoma of uterus Port-A-Cath in place Wears dentures Wears glasses Surgical History History of colonoscopy with polypectomy (03/22/14) History of esophagogastroduodenoscopy (EGD) (05/22/18) History of esophagogastroduodenoscopy (EGD) (03/22/14) History of lung biopsy (06/2014) History of total hysterectomy with bilateral salpingo-oophorectomy (BSO) (01/2014) Hx of bilateral cataract extraction (02/15/15) Hx of dilation and curettage (01/16/14) Hx of shoulder surgery (2018) Status post dilation and curettage Social History household members: family Tobacco & Substance Use Smoking Status: Unknown if ever smoked alcohol intake: never Assessment & Plan Assessment & Plan narrative: Unable to acquire the Pleur X catheter at this time. Her follow up CXR after removal of chest tube yesterday shows no PTX. 95% sat on RA. Plan: Ok to discharge home. If she has recurrence, I highly recommend Pleur X cath at that time. No need for surgical follow up when discharged. And ok to discharge when medically cleared. Time Spent With Patient Critical Care time: I spent a total of [] minutes of critical care time on this patient's care today; this time is exclusive of procedural time.
--- NOTE | 2021-05-07 10:03 | DI.RAD.S_ITS ---
PROCEDURE: XR CHEST 1V INDICATIONS: evaluation of pneumothorax TECHNIQUE: One view of the chest was acquired. COMPARISON: [facility], CT, CT ANGIO CHEST PE PROTOCOL, 03/14/2021, 19:12. [facility], CR, XR CHEST 1V, 03/14/2021, 16:48. [facility], CR, XR CHEST 1V, 05/04/2021, 15:24. [facility], CR, XR CHEST 1V, 05/06/2021, 9:51. FINDINGS: Surgical changes and devices: None. Lungs and pleura: Patchy bilateral pulmonary opacities with a linear appearance appear unchanged compared to prior studies and remote x-rays a CT on 03/14/2020. Mediastinum: Mediastinal contours appear normal. Heart size is normal. Bones and chest wall: No suspicious bony lesions. Overlying soft tissues appear unremarkable. Subcutaneous emphysema over the right chest wall is consistent with recent chest tube. IMPRESSION: 1. Interval removal of right-sided chest tube without right-sided pneumothorax. 2. Parenchymal opacities are unchanged compared to prior studies. Dictated by: Javon De Jesus M.D. on 05/07/2021 at 10:26 Approved by: Javon De Jesus M.D. on 05/07/2021 at 10:29
[2021-05-07] MEDS: PANTOPRAZOLE DR 40 MG TABLET PO (10:31)
[2021-05-07] MEDS: AMLODIPINE 5 MG TABLET 10 MG PO (10:32)
[2021-05-07] MEDS: PAZOPANIB 200 MG 800 EACH PO (10:33)
[2021-05-07] MEDS: SOLIFENACIN 5 MG TABLET 10 MG PO (10:34)
[2021-05-07] MEDS: LEVOTHYROXINE 50 MCG TABLET PO (10:37)
[2021-05-07] MEDS: SODIUM CHLORIDE 0.9% FLUSH 10 ML IV ×2 (10:38→20:49)
[2021-05-07] MEDS: POTASSIUM CHLORIDE IN WATER 10 MEQ/100 ML PIGGYBACK 100 MEQ IV ×2 (10:56→12:37)
--- NOTE | 2021-05-07 14:12 | CM.DPC ---
DCP Cont: Per Surgeon, pt currently tolerating the pulled chest tube from yesterday without fluid build up and pt will likely need a pleurx drain soon but no current plans to do and might happen as outpt or during next admission as pt high risk for readmit. Per RN, pt's nails and hygiene were poor and staff helped to clean and cut pt's nails especially to reduce risk of infection from itching skin or scratching. SW met bedside with pt and explained role, pt remains very flat affect without dentures in but participated in discussion to a limited degree. Son Carrillo is currently in the ED due to weakness. SW inquired about pt's wishes for her discharge plan and inquired about SNF rehab. Pt states that her preference is home and states her son is 6ft8in and capable of physically assisting her when needed. SW inquired about HH and pt states that their 2 newer [place] [employer] dogs would not allow anyone else in the house, they are very protective. Pt states they live in a 1700 square foot home and dogs have room to roam as well. SW inquired if pt has STAN and pt shook her head no and SW inquired if she would be interested in attempting to apply for STAN for additional CG in the home besides just Carrillo. Pt did not fully answer the question but was agreeable with SW asking again tomorrow. Pt currently denies that she has any concerns with discharge plan to home and denies that she has any other needs. Pt appears to be competent in making her own decisions and does not appear to be gravely disabled or incompetent. Concerns remain with pt and son's poor hygiene and care when admitted to the hospital and pt's high risk with multiple medical comorbidities. Plan: SW to follow tomorrow with Ba Damian at [facility], towards determining any ways to best support pt and concerns and also provide application for LTC/STAN to pt prior to d/c. SW to follow closely as pt preference is home with son. TEO Mason
--- NOTE | 2021-05-07 16:18 | PM.PN.1 ---
Subjective Subjective Date Patient Seen: 05/07/21 Time Patient Seen: 08:00 Interval history: Today she has no complaints. She was planned to get pleurx done, but that was unable to be done per surgery. Repeat chest xray appeared improved in terms of pneumothorax Exam Vital Signs (past 8 hours): - 05/07/21 11:00 05/07/21 12:00 05/07/21 15:54 Temperature 98.1 F Pulse Rate 88 Respiratory Rate 20 Blood Pressure 150/74 H Pulse Oximetry 96 96 93 Oxygen Delivery Method Room Air Oxygen Flow Rate 0 Narrative Exam Narrative: GEN: chronically ill, frail, pale HEENT: moist mucous membranes, PERRL NECK: trachea midline, no JVD CV: regular rate and rhythm, with no murmurs PULM: poor air movement, coarse breath sounds, chest tube removed ABD: soft, nontender, nondistended, no organomegaly, normal bowel sounds EXT: warm and well perfused, 2+ edema in bilateral feet SKIN: +sacral decubitus ulcer NEURO: awake, alert and oriented, no focal deficits Objective Labs Result Diagrams: 05/07/21 07:55 05/07/21 07:55 Labs: Laboratory Results - last 24 hr 05/07/21 05/07/21 07:55 07:55 WBC 6.8 RBC 2.38 L Hgb 7.8 L Hct 23.8 L MCV 100.2 H MCH 32.8 MCHC 32.8 RDW 18.7 H Plt Count 279 Sodium 135 L Potassium 3.5 Chloride 108 H Carbon Dioxide 20 L BUN 24 H Creatinine 1.23 H Estimated GFR 42.7 L BUN/Creatinine Ratio 19.5 Glucose 82 Calcium 8.1 L [facility] Medical History Acute bilateral low back pain with bilateral sciatica Arthritis Bleeding ulcer (2017) GERD (gastroesophageal reflux disease) History of frequent headaches History of transfusion (01/16/14) History of transfusion of packed red blood cells (01/16/14) HTN (hypertension) Hx of radiation therapy Left rib fracture (09/2017) Metastasizing leiomyoma of uterus Port-A-Cath in place Wears dentures Wears glasses Surgical History History of colonoscopy with polypectomy (03/22/14) History of esophagogastroduodenoscopy (EGD) (05/22/18) History of esophagogastroduodenoscopy (EGD) (03/22/14) History of lung biopsy (06/2014) History of total hysterectomy with bilateral salpingo-oophorectomy (BSO) (01/2014) Hx of bilateral cataract extraction (02/15/15) Hx of dilation and curettage (01/16/14) Hx of shoulder surgery (2018) Status post dilation and curettage Social History household members: family Smoking Status: Unknown if ever smoked alcohol intake: never Assessment & Plan Assessment & Plan narrative: Ms. 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 1. Acute hypoxemic respiratory failure with acute right pneumothorax -noted in ED to desat to the 80s -chest xray showed moderate pneumothorax -improving after chest tube placement -etiology likely is known metastases -continue chest tube as directed by surgery -Dr. Santiago on consult for surgery -discontinue antibiotic, no evidence of pneumonia -patient's son is consenting to PleurX catheter with patient now in agreement -repeat xray on 05/07 shows no pneumothorax, pleurx unable to be placed, per surgery ok to dc home from surgical standpoint 2. Anemia -appears near baseline -has continued to downtrend, unclear etiology -no evidence of overt GI bleeding -continue to trend CBC -type and screen, guaiac stool 3. Elevated lactate, resolved -possibly related to hypovolemia, less likely infection, or possibly malignancy -improved with IV fluids 4. Sacral decubitus ulcer -no evidence of infection currently 5. Anorexia, failure to thrive, GERD -continue PPI per home routine 6. 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 Hypertension, stable -continue amlodipine DISP: Consider SNF rehab Time Spent With Patient Critical Care time: I spent a total of [] minutes of critical care time on this patient's care today; this time is exclusive of procedural time. Quality VTE Deep Vein Thrombosis/Pulmonary Embolism Present on Admission: No
[2021-05-07] MEDS: NYSTATIN POWDER 15GM 1 APPLIC TOP (22:22)
[2021-05-08] VITALS (19 sets, daily range): BP systolic 124–156; BP diastolic 66–82; PULSE 86–109; RESP 14–20; TEMP 36–36.7; O2SAT 94–99
[2021-05-08] MEDS: PANTOPRAZOLE DR 40 MG TABLET PO (06:46)
[2021-05-08] MEDS: LEVOTHYROXINE 50 MCG TABLET PO (06:46)
[2021-05-08 07:07] LABS: Hematocrit 23.5 % (36-46); Hemoglobin 7.6 g/dL (12.0-16.0); Mean Corpuscular HGB Conc 32.2 % (30-36); Mean Corpuscular Hemoglobin 32.7 PG (26-34); Mean Corpuscular Volume 101.5 fL (80-100); Platelet Count 301 X10^3/uL (150-400); Red Blood Cell Count 2.32 X10^6/uL (4.0-5.2); Red Cell Distribution Width 18.9 % (11.6-14.8); White Blood Cell Count 6.9 X10^3/uL (4.5-11.0)
[2021-05-08 07:11] LABS: BUN Creatinine Ratio 21.8 (6-22); Blood Urea Nitrogen 26 mg/dL (7-17); Calcium 8.1 mg/dL (8.4-10.2); Carbon Dioxide 22 mmol/L (22-32); Chloride 108 mmol/L (98-107); Estimated Glomerular Filt Rate 44.3 mL/min (>60); Glucose 87 mg/dL (80-110); HEMOLYSIS < 15 (0-50); Potassium 3.9 mmol/L (3.4-5.1); Sodium 135 mmol/L (137-145)
[2021-05-08] MEDS: SODIUM CHLORIDE 0.9% FLUSH 10 ML IV ×2 (08:39→22:38)
[2021-05-08] MEDS: AMLODIPINE 5 MG TABLET 10 MG PO (08:39)
[2021-05-08] MEDS: SOLIFENACIN 5 MG TABLET 10 MG PO (08:39)
--- NOTE | 2021-05-08 08:54 | PC.NURSE ---
Day shift: Heparin flush not ordered because Pt has allergy to pork.
--- NOTE | 2021-05-08 13:39 | CM.DPC ---
DCP Cont: Per MD, pt continues to be stable with chest tube discontinued and no current need for plurex and MD aware that pt continues to want full tx and declines Hospice and declines going to SNF and wants home with son. Oncologist and Surgeon both aware as well and pt a high risk of readmit due to metastatic cancer and medical comorbidities. Pt to receive blood transfusion and then plan of likely home with son per pt's request. Plan: SW to follow for plan of home via son POV and high risk of readmit and any further identified needs. Jayashree Bravo MSW
--- NOTE | 2021-05-08 17:46 | P.PN_ITS ---
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 Patient had a pneumothorax required chest tube which has since been removed. She has no specific complaints today. She is so mewhat pale. Patient is noted to be anemic although etiology is unclear. She is agreeable to a 1 unit transfusion of blood. Exam Vital Signs (past 8 hours): - 05/08/21 10:00 05/08/21 11:51 05/08/21 12:00 Temperature 97.8 F Pulse Rate 95 H Respiratory Rate 18 Blood Pressure 142/82 H Pulse Oximetry 99 96 97 05/08/21 13:01 05/08/21 13:07 05/08/21 14:15 Temperature 97.2 F L 97.0 F L Pulse Rate 91 H 93 H Respiratory Rate 16 Blood Pressure 140/73 140/73 Pulse Oximetry 97 05/08/21 15:45 Temperature 96.8 F L Pulse Rate 86 Respiratory Rate 20 Blood Pressure 124/66 Pulse Oximetry Oxygen Delivery Method Room Air Oxygen Flow Rate 0 Narrative Exam Narrative: Pale ill-appearing female with a flat affect Resp Other: Lungs: Clear to auscultation Cardio Other: Cardiac exam: Regular rate and rhythm normal S1-S2 GI Other: Abdomen: Soft and nontender Extrem Other: Extremities: 2+ edema Objective Labs Result Diagrams: 05/08/21 06:50 05/08/21 06:50 Labs: Laboratory Results - last 24 hr 05/07/21 05/08/21 05/08/21 17:45 06:50 06:50 WBC 6.9 RBC 2.32 L Hgb 7.6 L Hct 23.5 L MCV 101.5 H MCH 32.7 MCHC 32.2 RDW 18.9 H Plt Count 301 Sodium 135 L Potassium 3.9 Chloride 108 H Carbon Dioxide 22 BUN 26 H Creatinine 1.19 H Estimated GFR 44.3 L BUN/Creatinine Ratio 21.8 Glucose 87 Calcium 8.1 L Blood Type A Negative Antibody Screen Negative Crossmatch See Detail [facility] Medical History Acute bilateral low back pain with bilateral sciatica Arthritis Bleeding ulcer (2018) GERD (gastroesophageal reflux disease) History of frequent headaches History of transfusion (01/16/14) History of transfusion of packed red blood cells (01/16/14) HTN (hypertension) Hx of radiation therapy Left rib fracture (09/2017) Metastasizing leiomyoma of uterus Port-A-Cath in place Wears dentures Wears glasses Surgical History History of colonoscopy with polypectomy (03/22/14) History of esophagogastroduodenoscopy (EGD) (05/22/18) History of esophagogastroduodenoscopy (EGD) (03/22/14) History of lung biopsy (06/2014) History of total hysterectomy with bilateral salpingo-oophorectomy (BSO) (01/2014) Hx of bilateral cataract extraction (02/15/15) Hx of dilation and curettage (01/16/14) Hx of shoulder surgery (2018) Status post dilation and curettage Social History household members: family Smoking Status: Unknown if ever smoked alcohol intake: never Assessment & Plan Assessment & Plan narrative: Acute hypoxemic respiratory failure with acute right pneumothorax -noted in ED to desat to the 80s -chest xray showed moderate pneumothorax -improving after chest tube placement -etiology likely is known metastases -continue chest tube as directed by surgery -Dr. Santiago on consult for surgery -discontinue antibiotic, no evidence of pneumonia -patient's son is consenting to PleurX catheter with patient now in agreement -repeat xray on 05/07 shows no pneumothorax, pleurx unable to be placed, per surgery ok to dc home from surgical standpoint Patient is not hypoxic 2. Anemia -appears near baseline -has continued to downtrend, unclear etiology -no evidence of overt GI bleeding -continue to trend CBC -type and screen, guaiac stool -transfuse 1 unit of blood, patient tolerated this without difficulty 3. Elevated lactate, resolved -possibly related to hypovolemia, less likely infection, or possibly malignancy -improved with IV fluids 4. Sacral decubitus ulcer -no evidence of infection currently 5. Anorexia, failure to thrive, GERD -continue PPI per home routine 6. 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 Hypertension, stable -continue amlodipine DISP:? Consider SNF rehab Patient and her son bipin klein. Plans were made for her to be discharged home. Unfortunately her son is in the emergency department and I believe this is his 3rd visit. Will need to discuss shows social work tomorrow. If the patient is deemed appropriate for discharge and her son is unable to care for her at home will need another option for the patient. Time Spent With Patient Critical Care time: I spent a total of [] minutes of critical care time on this patient's care today; this time is exclusive of procedural time. Quality VTE Deep Vein Thrombosis/Pulmonary Embolism Present on Admission: No
[2021-05-09] VITALS (12 sets, daily range): BP systolic 138–154; BP diastolic 73–86; PULSE 91–99; RESP 16–20; TEMP 35.6–36.4; O2SAT 93–96
[2021-05-09] MEDS: PANTOPRAZOLE DR 40 MG TABLET PO (05:34)
[2021-05-09] MEDS: LEVOTHYROXINE 50 MCG TABLET PO (05:34)
[2021-05-09] MEDS: SODIUM CHLORIDE 0.9% FLUSH 10 ML IV ×2 (09:42→22:02)
[2021-05-09] MEDS: SOLIFENACIN 5 MG TABLET 10 MG PO (09:45)
[2021-05-09] MEDS: AMLODIPINE 5 MG TABLET 10 MG PO (09:45)
[2021-05-09 10:32] LABS: Add Manual Diff / Slide Review NO; Basophils Absolute Auto 0 /uL (0-100); Basophils Percent Auto 0.6 % (0-2); Eosinophils Absolute Auto 300 /uL (0-450); Eosinophils Percent Auto 4.9 % (2-4); Hematocrit 30.1 % (36-46); Lymphocytes Absolute Auto 500 /uL (1100-4500); Lymphocytes Percent Auto 7.8 % (25-40); Mean Corpuscular HGB Conc 33.1 % (30-36); Mean Corpuscular Volume 96.7 fL (80-100); Monocytes Absolute Auto 500 /uL (0-900); Monocytes Percent Auto 8.3 % (3-14); Neutrophils Absolute Auto 5000 /uL (1500-7000); Neutrophils Percent Auto 78.4 % (50-75); Platelet Count 315 X10^3/uL (150-400); Red Blood Cell Count 3.12 X10^6/uL (4.0-5.2); Red Cell Distribution Width 20.6 % (11.6-14.8); White Blood Cell Count 6.4 X10^3/uL (4.5-11.0)
--- NOTE | 2021-05-09 10:55 | PT.IIE ---
Current Diagnoses Other pneumothorax (05/03/21) Surgery Performed Operation Date: 05/05/21 10:00 <No data on this case meets the specified criteria> Operation Date: 05/07/21 12:15 <No data on this case meets the specified criteria> Surgical History (Last Reviewed 05/03/21 @ 17:44 by Cullen Garcia MD) Status post dilation and curettage Medical History (Last Reviewed 05/03/21 @ 19:15 by Timmy Bartlett DO) Acute bilateral low back pain with bilateral sciatica Arthritis Bleeding ulcer (2017) GERD (gastroesophageal reflux disease) History of frequent headaches History of transfusion (01/16/14) History of transfusion of packed red blood cells (01/16/14) HTN (hypertension) Hx of radiation therapy Left rib fracture (09/2017) Metastasizing leiomyoma of uterus Port-A-Cath in place Wears dentures Wears glasses Physical Therapy Inpatient Evaluation/Re-Eval M1 PT/OT-IP Prior Functional Status Start: 05/09/21 12:04 Freq: NEEDED Status: Active Protocol: Document 05/09/21 10:55 AB (Rec: 05/09/21 12:18 AB [id number]) Medical Review Prior Functional Status Medical History Reviewed Yes Communication able to make needs known Mobility and Gait Pt stated that she is modified independent with all mobilities and ambulation without AD but limited due to easily fatigability Social History Household Members children Living Arrangements House Number of Floors (Floors) One Floor Number of Stairs To Enter/Railing? 2 steps to enter without rails has a sunken living room with 1 step down (pt does not go to the living room) Home Environment Standard Height Toilet,Walk in Shower Home Equipment Straight Cane,Shower Seat with Backrest Additional Social History Comment pt stated that her son assists her at home M2 PT-IP Current Condition Start: 05/09/21 12:04 Freq: NEEDED Status: Active Protocol: Document 05/09/21 10:55 AB (Rec: 05/09/21 12:18 AB [id number]) Physical Therapy Current Condition Current Condition Evaluation Date 05/09/21 Treatment Diagnosis R pneumothorax; metastatic leiomyosarcoma; generalized weakness Onset Date 05/03/21 M3 PT-IP Subjective Start: 05/09/21 12:04 Freq: NEEDED Status: Active Protocol: Document 05/09/21 10:55 AB (Rec: 05/09/21 12:18 AB [email or web address]) Subjective Physical Therapy Visit Type Type Initial Evaluation Visit Start Time 10:55 Visit Stop Time 11:35 Total Visit Minutes 40 Number of GREEN BUILDING ENGINEER Visits 0 Physical Therapy Visit Comments Patient Comments agreeable to do PT Therapy Pain Assessment Pain Present Pain Present Denied Pain M4 PT-IP Mobility and Gait Start: 05/09/21 12:04 Freq: NEEDED Status: Active Protocol: Document 05/09/21 10:55 AB (Rec: 05/09/21 12:18 AB [id number]) PT-Bed Mobility Assessment Supine to Sit Supine to Sit Maximum Assistance,2 Person Assistance,Head of Bed Elevated Sit to Supine Sit to Supine Maximum Assistance,2 Person Assistance,Head of Bed Elevated PT-Transfer Assessment Comments Mobility Comments BP: 133/68 NE: 103-110 O2 sat: 96% completed bed mobility supine to sit requiring max A x 2. unable to tolerate full sitting on EOB with increase posterior leaning back to bed and pt stated that she had enough movement. positioned back to bed max A. call light and table placed within reach . informed pt regarding current mobility level and assistance needed at home but pt refused to go to SNF. pt wants to go home but also refuse services. informed classification case manager. PT-Balance Assessment Sitting Balance and Reactions Static Sitting Balance Ability Poor Dynamic Sitting Balance Ability Poor Standing Balance and Reactions Device Used n/t M5 PT-IP Objective Assessments Start: 05/09/21 12:04 Freq: NEEDED Status: Active Protocol: Document 05/09/21 10:55 AB (Rec: 05/09/21 12:18 AB [id number]) Orientation Orientation/Cognition Level of Alertness Alert Orientation Name Safety Awareness Decreased Safety Awareness Memory Description Short Term Impaired Gross Range of Motion Lower Extremity ROM Assessment Within Functional Limits Strength Lower Extremity Strength Assessment Bilaterally Impaired Hip 3+/5 Knee 3+/5 Muscle Tone Muscle Tone WNL Yes Other Assessments Other Other Assessments (+) edema: BUE/LE M6 PT-IP Treatment Start: 05/09/21 12:04 Freq: NEEDED Status: Active Protocol: Document 05/09/21 10:55 AB (Rec: 05/09/21 12:18 AB [email or web address]) Physical Therapy Treatment Education Education Provided Safety M7 PT-IP Assessment and Plan Start: 05/09/21 12:04 Freq: NEEDED Status: Active Protocol: Document 05/09/21 10:55 AB (Rec: 05/09/21 12:18 AB [id number]) PT Summary Assessment and Plan Potential Rehabilitation Potential Fair Status of Condition at Evaluation Evolving Summary Impairments Pain,ROM,Strength,Balance, Coordination,Sensation,Tone, Cognition,Bed Mobility, Transfers,Gait,Activity Tolerance Assessment Summary pt requiring max A x2 for bed mobility and unable to tolerate much activity. Pt was only able to retirement sit on EOB and unable to go to full upright sitting position and c/o feeling fatigue and needs to lie back in bed. pt refuses to go to SNF and refused services for home. informed classification case manager that pt will need ambulance to get into the house. Pt will also need a hospital bed. will continue to assess progress. Goals Bed Mobility Goal Moderate Assistance Transfer Goal Moderate Assistance Gait Goal Moderate Assistance,Front Wheel Walker Gait Distance 25 Days to Meet Goals 10 Frequency of Treatment Frequency Of Treatment Once a Day Treatment Plan Physical Therapy Treatment Plan Bed Mobility Training,Transfer Training,Gait Training, Therapeutic Exercise,Balance Retraining,Post Op Education, Discharge Planning,Hot or Cold Pack,Neuromuscular Re-ed, Coordination Retraining,Manual Therapy Precautions Other Precautions falls; chemo precautions Recommendations To Nursing Amount of Assist Needed Mechanical Lift Discharge Recommendations PT Discharge Recommendations SNF Rehab Transportation Needs at Discharge Stretcher/Ambulance
[2021-05-09 11:02] LABS: Anisocytosis 2+
[2021-05-09 11:03] LABS: Poikilocytosis 1+; Polychromasia 1+
--- NOTE | 2021-05-09 11:17 | CM.DPC ---
Addendum entered by Soraya Lake R.N. 05/09/21 17:26: edit error- patient son is now at [facility] getting care. Addendum entered by Soraya Lake R.N. 05/09/21 17:14: Cm met with patient again with SHIVA Lake at the bed side to discuss a safe discharge plan Patient still vocal about not wanting to go to SNF. CM and SW discussed with patient the need for some assistance at home since her son is ill and has been in the hospital three times this last week and is not at [facility] getting care. Patient stated she is open to talk with her son about possible HH service but she wants to go home and does not want to go to SNF. CM attempted 3x and lVM at [phone] with him to contact CM back to discuss patient DC plan. CM noticed patient spoke with oncology SW and she placed note in Record. CM department will continue to work with patient and patients son on Safe DC plan. Oncology clinic SW stated that plan will be SNF for a few weeks potentially after her son speaks with the patient. CM is concerned with this plan do to it depending on [facility] auth for SNF. CM department will speak with the patient in the AM to see if she is willing to go to SNF and will start the process of looking for bed placement at that time if she is agreeable. Soraya Lake senior site manager. Original Note: DCP continued: CM met with patient at the bedside and explained role. patient was awake and oriented x4. patient had flat affect during CM meeting and seemed annoyed with CMs visit to discuss DC planning. TATIANA explained concerns of staff with patient DC home with her son since her son has been in the ED three times in the last three days and in not in any condition to assist the patient at DC. Patient has a very High risk for Readmission and CM is trying to work with the patient to develop a safe discharge plan. patient stated she is not interested in SNF, HH services or LTC placement. Patient stated she does not want to apply for [facility] and wants to go home with her Son. Patient is aggressively denying services at discharge at this time. TATIANA Spoke with MD and SW and determined an APS referral is needed to provide patient with some follow up at home. tatiana got patients home address from the patient which was [address] [place] [address] in [facility] and placed an APS referral for them to follow up with the patient Online report confirmation number is [id number]. CM let Dr. Galindo know referral to APS was made. Plan is for patient to DC home with APS referral to follow up with patient in the home environment. Soraya Lake RNpeople manager
[2021-05-09] MEDS: PAZOPANIB 200 MG 800 EACH PO (11:52)
--- NOTE | 2021-05-09 13:55 | OT.IPNOTE ---
Attempted to see pt for OT eval and pt refused at this time and not wanting to get up. To check on pt tomorrow for OT eval.
--- NOTE | 2021-05-09 15:00 | ONC.MSW ---
T/C-Care Coordination with sonCarrillo Activity: Called and spoke with pt's son re: concerns and needs that he and pt have surrounding having care needed at home or elsewhere when pt is d/c'd from . Carrillo has been in the ER 3-times in the last week, is at [facility] today getting wound care. He shared that he thinks that they want to admit him, however, he's torn due to having no one else to care for pt and their 2-dogs. He's spoken with the [facility], who are willing to come and get the dogs for 30-days, but Carrillo and pt will need to re-apply to adopt them back, which is a hugely sad situation and decision to make. SUPERVISOR TYPE DISK QUALITY CONTROL discussed the need for pt to have cg, and for him to get his own healthcare needs met. Emphasized that pt will most likely only listen to him in terms of accepting a short rehab stay in a SNF, in order for Carrillo to get the acute healthcare needs he has met for the short-term. Both pt and Carrillo are well known to Oncology, and pt has been receiving care here for several years. Carrillo has shown to be a very devoted and capable cg, but they weren't prepared for his present illness/situation. He agreed that pt should most likely go to a SNF for rehab for 1-2 weeks, until he has the strength to manage her care needs. Plan: Carrillo will speak with pt about rehab either this afternoon or tomorrow, and call this SUPERVISOR TYPE DISK QUALITY CONTROL to share what they decide. They know that the options are very limited. Carrillo is also very emotionally distraught about not being able to care for her right now, and expressed appreciation for the assistance in getting to a safe plan for d/c. Will f/u in the morning with both pt and Carrillo. Updated the Oncology team of plan.
--- NOTE | 2021-05-09 18:45 | PM.PN.1 ---
Subjective Subjective Date Patient Seen: 05/09/21 Interval history: The patient is a 75-year-old female who was admitted to the hospital for evaluation of a pneumothorax. Chest tube was placed, and removed. The patient has known metastatic leiomyosarcoma. She was anemic and received 1 unit of blood. She tolerated that well. She is no longer on oxygen. She has no complaints of pain. She is deemed to be at her baseline and ready for discharge. Exam Vital Signs (past 8 hours): - 05/09/21 12:00 05/09/21 13:23 05/09/21 16:00 Temperature 96.0 F L 97.5 F L Pulse Rate 99 H 93 H Respiratory Rate 16 17 Blood Pressure 154/78 H 149/86 H Pulse Oximetry 96 95 94 05/09/21 17:00 Temperature Pulse Rate Respiratory Rate Blood Pressure Pulse Oximetry 94 Oxygen Delivery Method Room Air Oxygen Flow Rate 0 Narrative Exam Narrative: Pale ill-appearing female with a flat affect Resp Other: Lungs: Decreased breath sounds, crackles on the left base Cardio Other: Cardiac exam: Regular rate and rhythm normal S1-S2 GI Other: Abdomen: Soft and nontender Extrem Other: Extremities: 2+ bilateral edema Objective Labs Result Diagrams: 05/09/21 09:45 05/08/21 06:50 Labs: Laboratory Results - last 24 hr 05/09/21 09:45 WBC 6.4 RBC 3.12 L Hgb 10.0 L Hct 30.1 L MCV 96.7 D MCH 32.0 MCHC 33.1 RDW 20.6 H Plt Count 315 Neut % (Auto) 78.4 H Lymph % (Auto) 7.8 L [place] % (Auto) 8.3 Eos % (Auto) 4.9 H Baso % (Auto) 0.6 Neut # (Auto) 5000 Lymph # (Auto) 500 L [place] # (Auto) 500 Eos # (Auto) 300 Baso # (Auto) 0 RBC Morphology See below Polychromasia 1+ H Poikilocytosis 1+ H Anisocytosis 2+ H PFSH Medical History Acute bilateral low back pain with bilateral sciatica Arthritis Bleeding ulcer (2018) GERD (gastroesophageal reflux disease) History of frequent headaches History of transfusion (01/16/14) History of transfusion of packed red blood cells (01/16/14) HTN (hypertension) Hx of radiation therapy Left rib fracture (09/2017) Metastasizing leiomyoma of uterus Port-A-Cath in place Wears dentures Wears glasses Surgical History History of colonoscopy with polypectomy (03/22/14) History of esophagogastroduodenoscopy (EGD) (05/22/18) History of esophagogastroduodenoscopy (EGD) (03/22/14) History of lung biopsy (06/2014) History of total hysterectomy with bilateral salpingo-oophorectomy (BSO) (01/2014) Hx of bilateral cataract extraction (02/15/15) Hx of dilation and curettage (01/16/14) Hx of shoulder surgery (2018) Status post dilation and curettage Social History household members: children Smoking Status: Unknown if ever smoked alcohol intake: never Assessment & Plan Assessment & Plan narrative: Acute hypoxemic respiratory failure with acute right pneumothorax -noted in ED to desat to the 80s -chest xray showed moderate pneumothorax -improving after chest tube placement -etiology likely is known metastases -continue chest tube as directed by surgery -Dr. Santiago on consult for surgery -discontinue antibiotic, no evidence of pneumonia -patient's son is consenting to PleurX catheter with patient now in agreement -repeat xray on 05/07 shows no pneumothorax, pleurx unable to be placed, per surgery ok to dc home from surgical standpoint Patient is not hypoxic patient denies shortness of breath 2. Anemia -appears near baseline -has continued to downtrend, unclear etiology -no evidence of overt GI bleeding -continue to trend CBC -type and screen, guaiac stool -transfuse 1 unit of blood, patient tolerated this without difficulty - H/H 10.1 30 today, no evidence of bleeding 3. Elevated lactate, resolved -possibly related to hypovolemia, less likely infection, or possibly malignancy -improved with IV ,fluids,now discontinued 4. Sacral decubitus ulcer -no evidence of infection currently 5. Anorexia, failure to thrive, GERD -continue PPI per home routine 6. 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 Hypertension, stable -continue amlodipine DISP:? The patient continues to refuse SNF or Home Health Nursing. She is unable to walk, sit up, and requires a ruthy lift to transport. Her son, who is her caregiver, has been in the ED daily for the last 4 days for evaluation Discharging her home is unsafe. I would recommend Home Health or SNF. Patient continues to refuse and is at high risk for failure if discharge home given her current condition. Time Spent With Patient Critical Care time: I spent a total of [] minutes of critical care time on this patient's care today; this time is exclusive of procedural time. Quality VTE Deep Vein Thrombosis/Pulmonary Embolism Present on Admission: No
[2021-05-09] MEDS: SENNOSIDES 8.6 MG TABLET 17.2 MG PO (22:01)
[2021-05-09] MEDS: SERTRALINE 50 MG TABLET 100 MG PO (22:01)
[2021-05-10] VITALS (13 sets, daily range): BP systolic 133–157; BP diastolic 71–87; PULSE 92–96; RESP 14–20; TEMP 36.4–36.8; O2SAT 91–96
[2021-05-10] MEDS: PANTOPRAZOLE DR 40 MG TABLET PO (06:11)
[2021-05-10] MEDS: LEVOTHYROXINE 50 MCG TABLET PO (06:11)
[2021-05-10] MEDS: PAZOPANIB 200 MG 800 EACH PO (06:12)
[2021-05-10] MEDS: MAGNESIUM HYDROXIDE 30 ML UDC PO (08:54)
[2021-05-10] MEDS: SOLIFENACIN 5 MG TABLET 10 MG PO (08:54)
[2021-05-10] MEDS: AMLODIPINE 5 MG TABLET 10 MG PO (08:54)
[2021-05-10] MEDS: SENNOSIDES 8.6 MG TABLET 17.2 MG PO ×2 (08:54→21:12)
[2021-05-10] MEDS: SODIUM CHLORIDE 0.9% FLUSH 10 ML IV ×2 (08:54→21:13)
--- NOTE | 2021-05-10 09:43 | CM.DPNOTE ---
Faxed referral packet to [facility] and emailed to [facility] and received conf. Nazanin Cameron CM Asst.
--- NOTE | 2021-05-10 11:15 | PT.IPTN ---
Current Diagnoses Other pneumothorax (05/03/21) Surgery Performed Operation Date: 05/05/21 10:00 <No data on this case meets the specified criteria> Operation Date: 05/07/21 12:15 <No data on this case meets the specified criteria> Physical Therapy Treatment Note M2 PT-IP Current Condition Start: 05/09/21 12:04 Freq: NEEDED Status: Active Protocol: Document 05/10/21 11:23 SP (Rec: 05/10/21 11:53 SP [id number]) Physical Therapy Current Condition Current Condition Evaluation Date 05/09/21 Treatment Diagnosis R pneumothorax; metastatic leiomyosarcoma; generalized weakness Onset Date 05/03/21 M3 PT-IP Subjective Start: 05/09/21 12:04 Freq: NEEDED Status: Active Protocol: Document 05/10/21 11:23 SP (Rec: 05/10/21 11:53 SP [id number]) Subjective Physical Therapy Visit Type Type Treatment Note Visit Start Time 10:41 Visit Stop Time 11:15 Total Visit Minutes 34 Notes SPTA Narayan attended tx and provided 2nd person assist required throughout tx. Vital taken during tx: elevated supine: BP 148/96, 90 bpm, SaO2 97% on RA seated at EOB: BP 162/66 HR 103 BPM supine end tx: BP 155/ 85, HR 95 SaO2 93% on RA Number of LUG LOADER Visits 1 Physical Therapy Visit Comments Patient Comments Pt was agreeable to working with therapy and allowing SPTA assist during tx. Patient Goals Pt wants to return home. Therapy Pain Assessment Pain Present Pain Present Denied Pain M4 PT-IP Mobility and Gait Start: 05/09/21 12:04 Freq: NEEDED Status: Active Protocol: Document 05/10/21 11:23 SP (Rec: 05/10/21 11:53 SP [id number]) PT-Bed Mobility Assessment Rolling Type of Rolling Log Rolling,Bilateral Level of Assist Maximal Assistance,1 Person Assistance Supine to Sit Supine to Sit Maximum Assistance,2 Person Assistance,Head of Bed Elevated,Bedrails Sit to Supine Sit to Supine Maximum Assistance,2 Person Assistance,Head of Bed Elevated Scooting Scooting to Edge of Bed Maximum Assistance PT-Transfer Assessment Sit to and From Stand Sit to and from Stand Maximum Assistance,2 Person Assistance,Use of Upper Extremities Equipment Transfer Assistive Device Gait Belt,Front Wheeled Walker Comments Mobility Comments See vitals take above. Pt was elevated supine when arrived. LUG LOADER/ SPTA education on LE exercises pre activity: AP, heel slide, hip abd x5 reps each BLE, initially AAROM 5%A to start movement then able to complete self. Sup>sit Max A with WILTON and ed for use of bed rails support at upper back to for trunk righting to sit. Redirected UE onto bed for self WB for scoot performance to EOB, Max A x2 and use of transfer pad, Pt tends to posterior lean, once EOB Min- Max A with cuing for forward trunk. Sit<>stand using FWW Max A x2 with rounded posture and heavy posterior lean, cues for upright and forward alignment but unable, stood for 15 sec before required need to sit. Pt declined suggestion for mobility progression squat pivot transfer to chair by head turns indicating no and nodded yes when discussed return to bed. Education provided for importance for mobilizing for strength and independance. Lateral scoot up EOB x3 reps WB through BLE on floor and BUE WB on bed with support of Max x2 usign transfer pad. Sit >supine Max Ax2 for trunk righting and BLE support into bed. Pt was able to bridge bottom to center pelvis with transfer pad assist, with cue sequencing repositioned BLE self, Min A for upper body to center. Pt had call light and all needs in reach. LUG LOADER was unable to alarm bed, noted lights blinking, notified nursing. LUG LOADER updated communicated board, ruthy transfers for safety. PT-Balance Assessment Sitting Balance and Reactions Static Sitting Balance Ability Poor Dynamic Sitting Balance Ability Poor Standing Balance and Reactions Static Standing Balance Ability Poor Device Used FWW Comments Other Balance Tests/Deviations/Treatment Seated at EOB W/ UE support : Mod- Max A, pt tends to posterior lean. CGA x1 with max cuing, 2-5sec due to decreased strength. M5 PT-IP Objective Assessments Start: 05/09/21 12:04 Freq: NEEDED Status: Active Protocol: Document 05/09/21 10:55 AB (Rec: 05/09/21 12:18 AB [id number]) Orientation Orientation/Cognition Level of Alertness Alert Orientation Name Safety Awareness Decreased Safety Awareness Memory Description Short Term Impaired Gross Range of Motion Lower Extremity ROM Assessment Within Functional Limits Strength Lower Extremity Strength Assessment Bilaterally Impaired Hip 3+/5 Knee 3+/5 Muscle Tone Muscle Tone WNL Yes Other Assessments Other Other Assessments (+) edema: BUE/LE M6 PT-IP Treatment Start: 05/09/21 12:04 Freq: NEEDED Status: Active Protocol: Document 05/10/21 11:23 SP (Rec: 05/10/21 11:53 SP [id number]) Physical Therapy Treatment Exercises Exercises Ankle Pumps,Heel Slides,Supine Hip Abduction Knee ROM Measurement approx 10-70 knee flexion Education Education Provided Precautions,Weight Bearing Status,Safety M7 PT-IP Assessment and Plan Start: 05/09/21 12:04 Freq: NEEDED Status: Active Protocol: Document 05/10/21 11:23 SP (Rec: 05/10/21 11:53 SP [id number]) PT Summary Assessment and Plan Potential Rehabilitation Potential Fair Status of Condition at Evaluation Evolving Summary Impairments Pain,ROM,Strength,Balance, Coordination,Sensation,Tone, Cognition,Bed Mobility, Transfers,Gait,Activity Tolerance Progress Towards Goals Slow Progress due to Activity Tolerance Assessment Summary Pt requires Max A x2 all mobility. Sit<> stand Max A x2 w/ FWW, unable to progress further in standing due to lack of strength and declined transfer assessment. Pt would benefit from skilled rehab to progress strength and functional mobility. Discussed with pt safety need Max of 2 persons unsafe for son at home , would require a ruthy lift for transfers. Goals Bed Mobility Goal Moderate Assistance Transfer Goal Moderate Assistance Gait Goal Moderate Assistance,Front Wheel Walker Gait Distance 25 Days to Meet Goals 10 Frequency of Treatment Frequency Of Treatment Once a Day Treatment Plan Physical Therapy Treatment Plan Bed Mobility Training,Transfer Training,Gait Training, Therapeutic Exercise,Balance Retraining,Post Op Education, Discharge Planning,Hot or Cold Pack,Neuromuscular Re-ed, Coordination Retraining,Manual Therapy Other Recommendations and Next Treatment Bed mob, standing w/ FWW, Focus transfers. Precautions Other Precautions falls; chemo precautions Recommendations To Nursing Amount of Assist Needed Mechanical Lift Discharge Recommendations PT Discharge Recommendations SNF Rehab Transportation Needs at Discharge Stretcher/Ambulance
--- NOTE | 2021-05-10 13:04 | ONC.MSW ---
T/C-Support/Care Coordination w/son Activity: This PRODUCTION DIRECTOR attempted to call pt, however she didn't answer. Spoke with pt's son, who is planning to visit his mother this afternoon. Discussed his own healthcare status, and encouraged him to speak with pt to support care management in helping her to have the care she needs once discharged. He feels that he will be able to help her understand and agree to a few weeks of rehab once he's spoken with her. He said that they adamantly refuse to be sent to [place], and prefer to be at [facility], close to . This PRODUCTION DIRECTOR encouraged him to request the PRODUCTION DIRECTOR/Social Science Manager once he arrives at , and discuss he/pt's preferences and the what the availability options are at this point. PRODUCTION DIRECTOR offered supportive counseling and encouragement, as he is feeling like I got kicked in the gut (emotionally). Reiterated that this PRODUCTION DIRECTOR is also available to assist with the coordination of this care planning, as Oncology will need to monitor her needs once she is placed. Agreed to talk again tomorrow am.
--- NOTE | 2021-05-10 13:14 | CM.DPC ---
Addendum entered by Mariam Herrera R.N. 05/10/21 15:57: Shannan at [facility] stated that she will start the [employer] auth, and run it by her DNS. This menu planner and TEO Vogt, met with son, who was in the room. Mentioned to him that [facility] can't accept patient due to them not being part of [employer] network. [facility] has declined, [facility] has declined. Son is concerned about the care levels at [facility]. Did let him know that there has been a change in ownership, and that there are no other options, aside from taking her home. He was sitting in a wheel-chair, scratching at multiple skin wounds and fluid filled blisters on his arms. He mentioned, 'He had questions about her care, and why certain tests weren't being done. Directed him to hospitalist, she will meet with him. Mentioned [employer] application, and he gave permission to submit application with his phone number, which was done. Will go ahead with [facility] referral, send Shannan more nursing notes on patient. Original Note: DCP Cont: This pillowcase cleaner and TEO Vogt, went in to talk to patient. Her son has been her main caregiver, and he is now in the hospital. Patient is currently a mechanical lift, not bearing weight. She did work with P.T. yesterday. Discussed patient during team rounds as well, for she will need shelter before returning home with her son. Spoke to patient. She was originally reluctant to go to a skilled facility. Let her know that this would be temporary, for her to get stronger with the goal of returning home with her son, Carrillo. She is aware that he is in the hospital, and not able to care for her now. Let patient know that she will be getting the same care as she is here. She then said, I guess. Faxed referrals over to [facility] and [facility], for they both accept [employer]. Spoke to Lila at [facility] shortly after, and she had concerns about patient's level of care, as well as the cost of her current chemo meds. She was also concerned that patient does not want to go to skilled, as well as her needing a pleurix. Let Lila know that patient is willing to go to skilled, and she does not have a pleurix. She is also wanting to know what type of wound care that patient is getting, and nurse, Henrietta, will be looking at her coccyx wound and letting this menu planner know. It is currently covered with foam dressing. Homa at [facility] has declined to accept due to her level of care. Have left a message for [facility], to see if they have beds or can accept her insurance. Spoke to Martha at [facility], and she stated that they will not have beds available until next week, and they only take [employer] on a single case agreement if no local facilities will accept. Will attempt [facility], and could pursue [facility] if they have any Medicaid beds available. Called [facility] to see if patient has [employer]AN, and confirmed, she does not, would need to sent an application. Started filling out application, and will fax an expidited application for [employer], since son has been primary caregiver. P: DCP to continue to work on a skilled facility for patient. Will attempt [facility]. Lila at [facility] is continuing to review. Mariam Herrera, RN/Foreclosure Home Inspector
--- NOTE | 2021-05-10 14:12 | OT.IPNOTE ---
Attempted to see pt for OT eval. Called out to pt as pt was asleep and asked if she would like to do OT eval, pt proceeded to close her eyes again and did not respond. Asked pt again if she would like to do grooming needs and pt opened her eyes again and then closed her closed again without any acknowledgement or response. To check on pt tomorrow fro OT eval.
[2021-05-10] MEDS: BISACODYL 10 MG SUPP PR (17:03)
--- NOTE | 2021-05-10 17:33 | PM.PN.1 ---
Subjective Subjective Date Patient Seen: 05/10/21 Interval history: Patient is a 75-year-old female admitted to the hospital for a pneumothorax. She had a chest tube placed which was removed. This is felt to be secondary to metastatic leiomyosarcoma. Patient has no complaints. She and her son are now agreeable to her going to residential unit at discharge. Exam Vital Signs (past 8 hours): - 05/10/21 11:05 05/10/21 15:58 Temperature 97.9 F 98.1 F Pulse Rate 95 H 96 H Respiratory Rate 16 16 Blood Pressure 155/85 H 151/87 H Pulse Oximetry 96 96 Oxygen Delivery Method Room Air Oxygen Flow Rate 0 Narrative Exam Narrative: Pale ill-appearing female Resp Other: Lungs decreased breath sounds with crackles at the bases bilaterally Cardio Other: Cardiac exam: Tachycardic regular rate and rhythm normal S1-S2 GI Other: Abdomen soft nontender nondistended Extrem Other: Extremity 2+ pitting edema of both arms and legs. Objective Labs Result Diagrams: 05/09/21 09:45 05/08/21 06:50 [facility], [facility] Medical History Acute bilateral low back pain with bilateral sciatica Arthritis Bleeding ulcer (2017) GERD (gastroesophageal reflux disease) History of frequent headaches History of transfusion (01/16/14) History of transfusion of packed red blood cells (01/16/14) HTN (hypertension) Hx of radiation therapy Left rib fracture (09/2017) Metastasizing leiomyoma of uterus Port-A-Cath in place Wears dentures Wears glasses Surgical History History of colonoscopy with polypectomy (03/22/14) History of esophagogastroduodenoscopy (EGD) (05/22/18) History of esophagogastroduodenoscopy (EGD) (03/22/14) History of lung biopsy (06/2014) History of total hysterectomy with bilateral salpingo-oophorectomy (BSO) (01/2014) Hx of bilateral cataract extraction (02/15/15) Hx of dilation and curettage (01/16/14) Hx of shoulder surgery (2019) Status post dilation and curettage Social History household members: children Smoking Status: Unknown if ever smoked alcohol intake: never Assessment & Plan Assessment & Plan narrative: Assessment & Plan narrative: Acute hypoxemic respiratory failure with acute right pneumothorax -noted in ED to desat to the 80s -chest xray showed moderate pneumothorax -improving after chest tube placement -etiology likely is known metastases -continue chest tube as directed by surgery -Dr. Santiago on consult for surgery -discontinue antibiotic, no evidence of pneumonia -patient's son is consenting to PleurX catheter with patient now in agreement -repeat xray on 05/07 shows no pneumothorax, pleurx unable to be placed, per surgery ok to dc home from surgical standpoint Patient is not hypoxic patient denies shortness of breath 2. Anemia -appears near baseline -has continued to downtrend, unclear etiology -no evidence of overt GI bleeding -continue to trend CBC -type and screen, guaiac stool -transfuse 1 unit of blood, patient tolerated this without difficulty - H/H 10.1 30 today, no evidence of bleeding -patient's son request pro crit, will consider at discharge 3. Elevated lactate, resolved -possibly related to hypovolemia, less likely infection, or possibly malignancy -improved with IV ,fluids,now discontinued 4. Sacral decubitus ulcer -no evidence of infection currently 5. Anorexia, failure to thrive, GERD -continue PPI per home routine 6. 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 Hypertension, stable -continue amlodipine 8. Disposition patient finally agreed to residential. Case Management currently working on a plan. Time Spent With Patient Critical Care time: I spent a total of [] minutes of critical care time on this patient's care today; this time is exclusive of procedural time. Quality VTE Deep Vein Thrombosis/Pulmonary Embolism Present on Admission: No
--- NOTE | 2021-05-10 17:41 | CM.DPC ---
DCP continued: CM received a call from APS following up on report that CM made yesterday. APS Asked CM if the hospital still wanted the APS report to be followed up on since they received another call from another employee stating that we were not aware of all the facts when the original APS report was filed. CM stated that yes I still felt it was important for APS to follow up on the claim since the patient is not really wanting any help, her son / caregiver is ill as well and doing a evaluation to see if they can help the patient with any services or support would be greatly appreciated by the Acute care staff and case management department. APS stated that they will assign the case to a bottle caser to start an assessment and will be in contact with the patient within the next five days. APS stated they are looking at this case as a possible self neglect case since the patient is reluctant to make choices to help support her illness recovery and safety. Soraya Lake RN Case Manger
[2021-05-10 18:09] LABS: Free T4, Direct Thyroxine 1.24 ng/dL (0.78-2.19)
--- NOTE | 2021-05-10 19:06 | PC.NURSE ---
pt ambulated to the bathroom w/fww and gait belt. no dizziness or light headedness. she does seem sob when she was walking.
[2021-05-10] MEDS: SERTRALINE 50 MG TABLET 100 MG PO (21:12)
[2021-05-11] VITALS (13 sets, daily range): BP systolic 144–158; BP diastolic 75–88; PULSE 88–96; RESP 14–18; TEMP 36.4–36.8; O2SAT 91–95
[2021-05-11] MEDS: LEVOTHYROXINE 50 MCG TABLET PO (05:30)
[2021-05-11] MEDS: PANTOPRAZOLE DR 40 MG TABLET PO (05:32)
[2021-05-11] MEDS: PAZOPANIB 200 MG 800 EACH PO (06:14)
--- NOTE | 2021-05-11 06:17 | PC.NURSE ---
Pt rested all noc. Very soft spken, only speaks when spolen too. MARTIR midline intact/patent. SpO2 95% RA Condition remains essentially unchanged. Call light w/in reach, bed alarm on for pt safety. Continue w/plan of care.
--- NOTE | 2021-05-11 09:04 | OT.IP.EVAL ---
Current Diagnoses Other pneumothorax (05/03/21) Surgery Performed Operation Date: 05/05/21 10:00 <No data on this case meets the specified criteria> Operation Date: 05/07/21 12:15 <No data on this case meets the specified criteria> Past Medical History (Last Reviewed 05/03/21 @ 19:15 by Timmy Barltett DO) Acute bilateral low back pain with bilateral sciatica Arthritis Bleeding ulcer (2017) GERD (gastroesophageal reflux disease) History of colonoscopy with polypectomy (03/22/14) History of esophagogastroduodenoscopy (EGD) (05/22/18) History of esophagogastroduodenoscopy (EGD) (03/22/14) History of frequent headaches History of lung biopsy (06/2014) History of total hysterectomy with bilateral salpingo-oophorectomy (BSO) (01/2014) History of transfusion (01/16/14) History of transfusion of packed red blood cells (01/16/14) HTN (hypertension) Hx of bilateral cataract extraction (02/15/15) Hx of dilation and curettage (01/16/14) Hx of radiation therapy Hx of shoulder surgery (2018) Left rib fracture (09/2017) Metastasizing leiomyoma of uterus Port-A-Cath in place Wears dentures Wears glasses Surgical History (Last Reviewed 05/03/21 @ 17:44 by Cullen Garcia MD) History of colonoscopy with polypectomy (03/22/14) History of esophagogastroduodenoscopy (EGD) (05/22/18) History of esophagogastroduodenoscopy (EGD) (03/22/14) History of lung biopsy (06/2014) History of total hysterectomy with bilateral salpingo-oophorectomy (BSO) (01/2014) Hx of bilateral cataract extraction (02/15/15) Hx of dilation and curettage (01/16/14) Hx of shoulder surgery (2018) Status post dilation and curettage Occupational Therapy Inpatient Evaluation/Re-Eval M1 PT/OT-IP Prior Functional Status Start: 05/09/21 12:04 Freq: NEEDED Status: Active Protocol: Document 05/11/21 12:29 [facility] (Rec: 05/11/21 12:45 [facility] [id number]) Medical Review Prior Functional Status Medical History Reviewed Yes Communication able to make needs known Mobility and Gait Pt stated that she is modified independent with all mobilities and ambulation without AD but limited due to easily fatigability Activities of Daily Living and IADL's Pt states prior able to care fore herself with ADl needs. Social History Household Members children Living Arrangements House Number of Floors (Floors) One Floor Number of Stairs To Enter/Railing? 2 steps to enter without rails has a sunken living room with 1 step down (pt does not go to the living room) Home Environment Standard Height Toilet,Walk in Shower Home Equipment Straight Cane,Shower Seat with Backrest Additional Social History Comment pt stated that her son assists her at home M2 OT-IP Current Condition Start: 05/11/21 12:29 Freq: Status: Active Protocol: Document 05/11/21 12:29 [facility] (Rec: 05/11/21 12:45 [facility] [id number]) Occupational Therapy Current Condition Current Condition Evaluation Date 05/11/21 Treatment Diagnosis Right pneumothorax, acute hypoxic respiratory failure, decreased mobility Diagnosis Onset Date 05/07/21 M3 OT- IP Subjective and Pain Start: 05/11/21 12:29 Freq: Status: Active Protocol: Document 05/11/21 12:29 [facility] (Rec: 05/11/21 12:45 [facility] [id number]) OT- Subjective Occupational Therapy Visit Type Type Initial Evaluation Visit Start Time 09:04 Visit Stop Time 09:38 Total Visit Minutes 34 Occupational Therapy Visit Comments Patient Comments Pt agreed to get up for OT and SENIOR PROCUREMENT MANAGER to the recliner. Patient/Caregiver Goals Pt did not state. OT Pain Assessment Pain When Pain Assessed At Rest Pain Present Pain Present Denied Pain M4 OT- IP ADL's Start: 05/11/21 12:29 Freq: Status: Active Protocol: Document 05/11/21 12:29 [facility] (Rec: 05/11/21 12:45 [facility] [id number]) OT [id number] Comments OT Self-Feeding Comments Not at meal time. OT ADL-Grooming General Evaluation Grooming Ability Minimal Assistance Areas Needing Assistance Combing/Brushing Hair Comments OT Grooming Comments Pt able to brush the left side of her hair with left hand and needing assist for completeness. Pt able to wash her face with a wash cloth after set-up. OT ADL-Oral Care Comments Oral Care Comments Not performed. OT ADL-Dressing General Eval Lower Body Dressing Ability Total Assistance Areas Needing Assistance Socks OT ADL-Toileting General Evaluation Toileting Ability Total Assistance Areas Needing Assistance Empty Catheter or Colostomy, Manage Clothing,Perform Perineal Hygiene Comments OT Toileting Comments Pt in bed for assist for hygiene as had a bowel movement, nursing aid there to assist. OT ADL-Bathing Comments OT Bathing Comments Sponge bath more appropriate at this time. M5 OT- IP IADL's Start: 05/11/21 12:29 Freq: Status: Active Protocol: Document 05/11/21 12:29 [facility] (Rec: 05/11/21 12:45 [facility] [id number]) OT-Instrumental Activities of Daily Living Home Safety Awareness Awareness of Need for Assistance at Home Decreased Awareness Ability to Problem Solve Emergency Unable to Problem Solve Situations M6 OT- IP Functional Cognition Start: 05/11/21 12:29 Freq: Status: Active Protocol: Document 05/11/21 12:29 [facility] (Rec: 05/11/21 12:45 [facility] [id number]) Cognitive Factors Limiting Selfcare Function Cognitive Ability Level of Alertness Alert Patient Orientation Name,Place Attention Span Ability Capable of Focused Attention, Capable of Sustained Attention Ability to Follow Commands Able to Follow One Step Commands with Increased Time, Able to Follow One Step Commands with Repetition Cognitive Comments Cognitive Assessment Comments Pt able to follow simple concrete commands for ADl needs. Pt is slow to respond to directions and does not initiate conversation. Pt would benefit from formal cognitive assessment. M7 OT- IP Mobility and Balance Start: 05/11/21 12:29 Freq: Status: Active Protocol: Document 05/11/21 12:29 [facility] (Rec: 05/11/21 12:45 [facility] [id number]) OT- Bed Mobility Assessment Supine to Sit Supine to Sit Assist Maximum Assistance,2 Person Assistance Sit to Supine Sit to Supine Assist Maximum Assistance,2 Person Assistance Scooting Scooting to Edge of Bed Maximum Assistance,2 Person Assistance OT-Transfer Assessment Sit to and From Stand Sit to and from Stand Maximum Assistance,2 Person Assistance Transfers Transfer Ability Maximum Assistance,2 Person Assistance Technique Transfer Destination Bed,Chair Transfer Technique Stand Step Pivot Devices Transfer Assistive Devices None,Gait Belt Comments Mobility Comments MAX AX 2 to stand and do stand pivot transfer. BP supine 157/84, sitting on edge of bed 162/81, after transfer 140/95 and after back in bed 158/85. Pt transferred back to back to the bed as pt was soiled and needing the to be cleaned and changed. OT- Gait Assessment Comments Gait Ability Comments Not at this time. OT- Balance Assessment Comments Other Balance Tests/Deviations/Treatment Pt tends to lean into : posterior tilt and needing MAXA for balance and towards the edge of the session able to hang onto the FWW in front of her and sit with CGA. Pt able to stand with FWw and MAX A 2 for 35secs. before having to sit down. M8 OT- IP Objective Assessments Start: 05/11/21 12:29 Freq: Status: Active Protocol: Document 05/11/21 12:29 [facility] (Rec: 05/11/21 12:45 [facility] [id number]) OT Gross Range of Motion Upper Extremity Range of Motion Assessment Bilaterally Impaired OT Strength Upper Extremity Strength Assessment Bilaterally Impaired OT Sensation Assessment Edema Edema Comments Swelling in BUE M9 OT- IP Assessment and Plan Start: 05/11/21 12:29 Freq: Status: Active Protocol: Document 05/11/21 12:29 [facility] (Rec: 05/11/21 12:45 [facility] [id number]) OT Summary Assessment and Plan Potential Rehabilitation Potential Fair Analytic Complexity at Evaluation Moderate Summary OT Impairments Range of Motion,Strength, Balance,Functional Cognition, Functional Mobility,Self- Feeding,Grooming,Dressing, Toileting,Bathing,Toilet Transfers,Shower Transfers, Activity Tolerance Progress Towards Goals Slow Progress due to Medical Issues,Slow Progress due to Activity Tolerance,Slow Progress due to Cognition Assessment Summary Pt MOD complexity and now needing extensive two person assist for ADL and mobility needs and far from her baseline per pt of being able to care for herself. Pt would benefit from skilled rehab. Goals Grooming Goal Independent Dressing Goal Moderate Assistance Toileting Goal Standby Assistance Bathing Goal Moderate Assistance Toilet Transfer Goal Minimal Assistance Shower Transfer Goal Minimal Assistance Days to Meet Goals 30 Frequency of Treatment Frequency Of Treatment Once a Day Treatment Plan Other Treatment Recommendations and Next [place] [facility] [place] X Treatment Focus 2. Discharge Recommendations OT Discharge Recommendations SNF Rehab Transportation Needs at Discharge Wheelchair/Cabulance
--- NOTE | 2021-05-11 09:31 | PT.IPTN ---
Current Diagnoses Other pneumothorax (05/03/21) Surgery Performed Operation Date: 05/05/21 10:00 <No data on this case meets the specified criteria> Operation Date: 05/07/21 12:15 <No data on this case meets the specified criteria> Physical Therapy Treatment Note M2 PT-IP Current Condition Start: 05/09/21 12:04 Freq: NEEDED Status: Active Protocol: Document 05/11/21 09:04 SP (Rec: 05/11/21 10:20 SP [id number]) Physical Therapy Current Condition Current Condition Evaluation Date 05/09/21 Treatment Diagnosis R pneumothorax; metastatic leiomyosarcoma; generalized weakness Onset Date 05/03/21 M3 PT-IP Subjective Start: 05/09/21 12:04 Freq: NEEDED Status: Active Protocol: Document 05/11/21 09:04 SP (Rec: 05/11/21 10:20 SP [id number]) Subjective Physical Therapy Visit Type Type Treatment Note Visit Start Time 09:03 Visit Stop Time 09:31 Total Visit Minutes 28 Notes Co Tx with OT. Vital taken during tx: R SL: BP 157/84 Sitting EOB: 162/81 post standin/95- head nod yes when asked if little lightheaded. End tx in supine: 158/86 Number of EQUIPMENT WORKER Visits 2 Physical Therapy Visit Comments Patient Comments Pt was agreeable to working with therapy with head nod. Therapy Pain Assessment Pain Present Pain Present Denied Pain M4 PT-IP Mobility and Gait Start: 05/09/21 12:04 Freq: NEEDED Status: Active Protocol: Document 05/11/21 09:04 SP (Rec: 05/11/21 10:20 SP [id number]) PT-Bed Mobility Assessment Supine to Sit Supine to Sit Maximum Assistance,2 Person Assistance,Bedrails Sit to Supine Sit to Supine Maximum Assistance,2 Person Assistance Scooting Scooting to Edge of Bed Maximum Assistance PT-Transfer Assessment Sit to and From Stand Sit to and from Stand Maximum Assistance,2 Person Assistance,Use of Upper Extremities Equipment Transfer Assistive Device Gait Belt,Front Wheeled Walker Transfers Transfer Destination Bed,Chair Transfer Technique Squat Pivot Transfer Ability Level of Assist Maximum Assistance,2 Person Assistance,Use of Upper Extremities Comments Mobility Comments Pt sleeping on R side when arrived. EQUIPMENT WORKER/OT tactile contact to L shld for arrosal. Pt agreed with head nod yes to tx. R SL>sit Max A x2 with redirection as needed for UE support on bed rail and pushing from bed for self righting. Pt heavy retro lean initially Max A x 1-2 with cues and support at upper back for forward lean and scoot to EOB use of transfer pad, improved self effort for trunk forward lean and UE pushing on bed with cuing. Once EOB feet supported pt able to sit with CGA while assess vitals. Sit<>stand Max A x2 BUE positioned on FWW at this time due to difficult to transition, support at anterior R knee prevent sliding forward and knee extension. Max cues for tall posture forward over feet and pelvis underneather her, able stand 35 sec before require to sit on EOB Max A x2 descent sit. SBA sitting EOB nodded yes when asked if dizzy, decrease in BP. Pt agreeable to squat pivot transfer to chair. Max A x2 with ability with cues to reach across to chair arm self and reposition shuffle step partially to chair. Rested in chair recovery decreased breath rate with cuing slow breaths. Noted pt soiled BM in brief in chair, called nursing for assist. Squat pivot back to chair Max A x2 with increased foot clearance to L this tranfer. Sit>supine Max A for upper body and LE support. Pt able to partial bridge and attempts lateral scoot assist with transfer pad and bent knees postioning. OT and ORACLE ERP ARCHITECT took over tx before left. Gait Assessment Comments Gait Comments Squat pivot only, shuffle stepping 3 steps max A x2 chair<> bed. Stair Climbing Assessment Comments Stair Climbing Comments unable to assess. PT-Balance Assessment Sitting Balance and Reactions Static Sitting Balance Ability Fair Dynamic Sitting Balance Ability Poor Standing Balance and Reactions Static Standing Balance Ability Poor Dynamic Standing Balance Ability Poor Device Used FWW M5 PT-IP Objective Assessments Start: 05/09/21 12:04 Freq: NEEDED Status: Active Protocol: Document 05/09/21 10:55 AB (Rec: 05/09/21 12:18 AB [id number]) Orientation Orientation/Cognition Level of Alertness Alert Orientation Name Safety Awareness Decreased Safety Awareness Memory Description Short Term Impaired Gross Range of Motion Lower Extremity ROM Assessment Within Functional Limits Strength Lower Extremity Strength Assessment Bilaterally Impaired Hip 3+/5 Knee 3+/5 Muscle Tone Muscle Tone WNL Yes Other Assessments Other Other Assessments (+) edema: BUE/LE M6 PT-IP Treatment Start: 05/09/21 12:04 Freq: NEEDED Status: Active Protocol: Document 05/10/21 11:23 SP (Rec: 05/10/21 11:53 SP [id number]) Physical Therapy Treatment Exercises Exercises Ankle Pumps,Heel Slides,Supine Hip Abduction Knee ROM Measurement approx 10-70 knee flexion Education Education Provided Precautions,Weight Bearing Status,Safety M7 PT-IP Assessment and Plan Start: 05/09/21 12:04 Freq: NEEDED Status: Active Protocol: Document 05/11/21 09:04 SP (Rec: 05/11/21 10:20 SP [id number]) PT Summary Assessment and Plan Potential Rehabilitation Potential Fair Status of Condition at Evaluation Evolving Summary Impairments Pain,ROM,Strength,Balance, Coordination,Sensation,Tone, Cognition,Bed Mobility, Transfers,Gait,Activity Tolerance Progress Towards Goals Slow Progress due to Activity Tolerance Assessment Summary Pt continues to require Max Ax2 for all mobility, improved with cuing for self UE support and able upright stand max A x2 wt shift more forward (little less posterior lean) using FWW up to 35 sec. SPT max A x2 bed<>chair, little decreased in BP during stand positioning and nodded yes for lightheadedness. Pt requires SNF for improved strength and functional mobility. Will continue to assess progress. Goals Bed Mobility Goal Moderate Assistance Transfer Goal Moderate Assistance Gait Goal Moderate Assistance,Front Wheel Walker Gait Distance 25 Days to Meet Goals 10 Frequency of Treatment Frequency Of Treatment Once a Day Treatment Plan Physical Therapy Treatment Plan Bed Mobility Training,Transfer Training,Gait Training, Therapeutic Exercise,Balance Retraining,Post Op Education, Discharge Planning,Hot or Cold Pack,Neuromuscular Re-ed, Coordination Retraining,Manual Therapy Other Recommendations and Next Treatment Bed mob, standing w/ FWW, Focus transfers. Precautions Other Precautions falls; chemo precautions Recommendations To Nursing Amount of Assist Needed Mechanical Lift Discharge Recommendations PT Discharge Recommendations SNF Rehab Transportation Needs at Discharge Stretcher/Ambulance
--- NOTE | 2021-05-11 09:31 | PT.IPTN ---
Current Diagnoses Other pneumothorax (05/03/21) Surgery Performed Operation Date: 05/05/21 10:00 <No data on this case meets the specified criteria> Operation Date: 05/07/21 12:15 <No data on this case meets the specified criteria> Physical Therapy Treatment Note M2 PT-IP Current Condition Start: 05/09/21 12:04 Freq: NEEDED Status: Active Protocol: Document 05/11/21 09:04 SP (Rec: 05/11/21 10:20 SP [id number]) Physical Therapy Current Condition Current Condition Evaluation Date 05/09/21 Treatment Diagnosis R pneumothorax; metastatic leiomyosarcoma; generalized weakness Onset Date 05/03/21 M3 PT-IP Subjective Start: 05/09/21 12:04 Freq: NEEDED Status: Active Protocol: Document 05/11/21 09:04 SP (Rec: 05/11/21 10:20 SP [id number]) Subjective Physical Therapy Visit Type Type Treatment Note Visit Start Time 09:03 Visit Stop Time 09:31 Total Visit Minutes 28 Notes Co Tx with OT. Vital taken during tx: R SL: BP 157/84 Sitting EOB: 162/81 post standin/95- head nod yes when asked if little lightheaded. End tx in supine: 158/86 Number of OIL EXTRACTOR Visits 2 Physical Therapy Visit Comments Patient Comments Pt was agreeable to working with therapy with head nod. Therapy Pain Assessment Pain Present Pain Present Denied Pain M4 PT-IP Mobility and Gait Start: 05/09/21 12:04 Freq: NEEDED Status: Active Protocol: Document 05/11/21 09:04 SP (Rec: 05/11/21 10:20 SP [id number]) PT-Bed Mobility Assessment Supine to Sit Supine to Sit Maximum Assistance,2 Person Assistance,Bedrails Sit to Supine Sit to Supine Maximum Assistance,2 Person Assistance Scooting Scooting to Edge of Bed Maximum Assistance PT-Transfer Assessment Sit to and From Stand Sit to and from Stand Maximum Assistance,2 Person Assistance,Use of Upper Extremities Equipment Transfer Assistive Device Gait Belt,Front Wheeled Walker Transfers Transfer Destination Bed,Chair Transfer Technique Squat Pivot Transfer Ability Level of Assist Maximum Assistance,2 Person Assistance,Use of Upper Extremities Comments Mobility Comments Pt sleeping on R side when arrived. OIL EXTRACTOR/OT tactile contact to L shld for arrosal. Pt agreed with head nod yes to tx. R SL>sit Max A x2 with redirection as needed for UE support on bed rail and pushing from bed for self righting. Pt heavy retro lean initially Max A x 1-2 with cues and support at upper back for forward lean and scoot to EOB use of transfer pad, improved self effort for trunk forward lean and UE pushing on bed with cuing. Once EOB feet supported pt able to sit with CGA while assess vitals. Sit<>stand Max A x2 BUE positioned on FWW at this time due to difficult to transition, support at anterior R knee prevent sliding forward and knee extension. Max cues for tall posture forward over feet and pelvis underneather her, able stand 35 sec before require to sit on EOB Max A x2 descent sit. SBA sitting EOB nodded yes when asked if dizzy, decrease in BP. Pt agreeable to squat pivot transfer to chair. Max A x2 with ability with cues to reach across to chair arm self and reposition shuffle step partially to chair. Rested in chair recovery decreased breath rate with cuing slow breaths. Noted pt soiled BM in brief in chair, called nursing for assist. Squat pivot back to bed Max A x2 with increased foot clearance to L this tranfer. Sit>supine Max A for upper body and LE support. Pt able to partial bridge and attempts lateral scoot assist with transfer pad and bent knees postioning. OT and DUMPER took over tx before left. Gait Assessment Comments Gait Comments Squat pivot only, shuffle stepping 3 steps max A x2 bed< > chair. Stair Climbing Assessment Comments Stair Climbing Comments unable to assess. PT-Balance Assessment Sitting Balance and Reactions Static Sitting Balance Ability Fair Dynamic Sitting Balance Ability Poor Standing Balance and Reactions Static Standing Balance Ability Poor Dynamic Standing Balance Ability Poor Device Used FWW M5 PT-IP Objective Assessments Start: 05/09/21 12:04 Freq: NEEDED Status: Active Protocol: Document 05/09/21 10:55 AB (Rec: 05/09/21 12:18 AB [id number]) Orientation Orientation/Cognition Level of Alertness Alert Orientation Name Safety Awareness Decreased Safety Awareness Memory Description Short Term Impaired Gross Range of Motion Lower Extremity ROM Assessment Within Functional Limits Strength Lower Extremity Strength Assessment Bilaterally Impaired Hip 3+/5 Knee 3+/5 Muscle Tone Muscle Tone WNL Yes Other Assessments Other Other Assessments (+) edema: BUE/LE M6 PT-IP Treatment Start: 05/09/21 12:04 Freq: NEEDED Status: Active Protocol: Document 05/10/21 11:23 SP (Rec: 05/10/21 11:53 SP [id number]) Physical Therapy Treatment Exercises Exercises Ankle Pumps,Heel Slides,Supine Hip Abduction Knee ROM Measurement approx 10-70 knee flexion Education Education Provided Precautions,Weight Bearing Status,Safety M7 PT-IP Assessment and Plan Start: 05/09/21 12:04 Freq: NEEDED Status: Active Protocol: Document 05/11/21 09:04 SP (Rec: 05/11/21 10:20 SP [id number]) PT Summary Assessment and Plan Potential Rehabilitation Potential Fair Status of Condition at Evaluation Evolving Summary Impairments Pain,ROM,Strength,Balance, Coordination,Sensation,Tone, Cognition,Bed Mobility, Transfers,Gait,Activity Tolerance Progress Towards Goals Slow Progress due to Activity Tolerance Assessment Summary Pt continues to require Max Ax2 for all mobility, improved with cuing for self UE support and able upright stand max A x2 wt shift more forward (little less posterior lean) using FWW up to 35 sec. SPT max A x2 bed<>chair, little decreased in BP during stand positioning and nodded yes for lightheadedness. Pt requires SNF for improved strength and functional mobility. Will continue to assess progress. Goals Bed Mobility Goal Moderate Assistance Transfer Goal Moderate Assistance Gait Goal Moderate Assistance,Front Wheel Walker Gait Distance 25 Days to Meet Goals 10 Frequency of Treatment Frequency Of Treatment Once a Day Treatment Plan Physical Therapy Treatment Plan Bed Mobility Training,Transfer Training,Gait Training, Therapeutic Exercise,Balance Retraining,Post Op Education, Discharge Planning,Hot or Cold Pack,Neuromuscular Re-ed, Coordination Retraining,Manual Therapy Other Recommendations and Next Treatment Bed mob, standing w/ FWW, Focus transfers. Precautions Other Precautions falls; chemo precautions Recommendations To Nursing Amount of Assist Needed Mechanical Lift Discharge Recommendations PT Discharge Recommendations SNF Rehab Transportation Needs at Discharge Stretcher/Ambulance
[2021-05-11] MEDS: MAGNESIUM HYDROXIDE 30 ML UDC PO (10:29)
[2021-05-11] MEDS: AMLODIPINE 5 MG TABLET 10 MG PO (10:29)
[2021-05-11] MEDS: SENNOSIDES 8.6 MG TABLET 17.2 MG PO (10:29)
[2021-05-11] MEDS: SODIUM CHLORIDE 0.9% FLUSH 10 ML IV (10:30)
--- NOTE | 2021-05-11 10:41 | DI.RAD.S_ITS ---
PROCEDURE: XR CHEST 1V INDICATIONS: SHORT OF BREATH TECHNIQUE: One view of the chest was acquired. COMPARISON: [facility], , XR CHEST 1V, 05/07/2021, 10:07. FINDINGS: Surgical changes and devices: None. Lungs and pleura: There is worsening opacity involving the right upper lobe. Additional focal consolidation present within the right lower lobe and left upper lobe. Patchy opacities in the right lung base. Low lung volumes are again noted. No pneumothorax. Right pleural effusion with possible loculated appearance, versus pleural thickening. Mediastinum: Cardiac silhouette and mediastinal contours are stable. Bones and chest wall: Diffuse spondylosis and facet disease. IMPRESSION: Worsening bilateral pneumonia, although most notably in the right upper lobe since 05/07/21. Low lung volumes as before. Dictated by: Jaime Singleton M.D. on 05/11/2021 at 11:44 Approved by: Jaime Singleton M.D. on 05/11/2021 at 11:46
[2021-05-11] MEDS: SOLIFENACIN 5 MG TABLET 10 MG PO (10:42)
--- NOTE | 2021-05-11 11:23 | CM.DPC ---
Addendum entered by Mariam Herrera R.N. 05/11/21 15:38: Shannan from [facility] is continuing to work on auth. Did mention chemo drug that patient is getting, and she stated to not add that to orders, but on separate prescription, for they will not be able to bill for this. She asked for copies of insurance card, and current wound orders. Faxed over scanned insurance card, and most recent nursing note showing wound care, which has been with foam dressing to coccyx. Original Note: DCP Cont: Called Shannan at [facility] in [place] to touch base with her regarding [employer] Auth. She indicated that the auth can take from 24-48 hours. She did request an updated physical therapy note, for she mentioned, if she doesn't participate, she could turn in to a local intermodal truck driver care patient. Let her know that patient did work with P.T. today, and would fax her updated note from today. Also, did let her know that an expidited ST[employer] application was faxed yesterday to [facility]. P: DCP to continue to work on getting patient to [facility]. Faxed her today's P.T. note, and nursing note as well. Mariam Herrera, RN/[employer]
[2021-05-11 11:41] LABS: Add Manual Diff / Slide Review NO; Basophils Absolute Auto 0 /uL (0-100); Basophils Percent Auto 0.3 % (0-2); Eosinophils Absolute Auto 300 /uL (0-450); Eosinophils Percent Auto 4.3 % (2-4); Hematocrit 26.8 % (36-46); Hemoglobin 8.8 g/dL (12.0-16.0); Lymphocytes Absolute Auto 400 /uL (1100-4500); Lymphocytes Percent Auto 4.9 % (25-40); Mean Corpuscular Hemoglobin 32.1 PG (26-34); Mean Corpuscular Volume 97.4 fL (80-100); Monocytes Absolute Auto 600 /uL (0-900); Monocytes Percent Auto 7.7 % (3-14); Neutrophils Absolute Auto 6100 /uL (1500-7000); Neutrophils Percent Auto 82.8 % (50-75); Platelet Count 343 X10^3/uL (150-400); Red Blood Cell Count 2.75 X10^6/uL (4.0-5.2); Red Cell Distribution Width 20.3 % (11.6-14.8); White Blood Cell Count 7.4 X10^3/uL (4.5-11.0)
[2021-05-11 11:59] LABS: BUN Creatinine Ratio 27.4 (6-22); Blood Urea Nitrogen 26 mg/dL (7-17); Calcium 8.4 mg/dL (8.4-10.2); Carbon Dioxide 24 mmol/L (22-32); Chloride 104 mmol/L (98-107); Estimated Glomerular Filt Rate 57.5 mL/min (>60); Glucose 105 mg/dL (80-110); HEMOLYSIS < 15 (0-50); Potassium 4.2 mmol/L (3.4-5.1); Sodium 133 mmol/L (137-145)
[2021-05-11 12:07] LABS: NT-proBNP (BNP-Adult 18+) 1110 pg/mL (<125)
[2021-05-11 12:23] LABS: Anisocytosis 2+
--- NOTE | 2021-05-11 17:03 | PM.PN.1 ---
Subjective Subjective Date Patient Seen: 05/11/21 Interval history: 75-year-old female admitted to the hospital with a pneumothorax, required chest tube placement. She has metastatic leiomyosarcoma. Patient is fairly non conversational. However today she does report shortness of breath. She has no other complaint Exam Vital Signs (past 8 hours): - 05/11/21 09:30 05/11/21 10:00 05/11/21 11:45 Temperature 97.6 F Pulse Rate 91 H Respiratory Rate 18 Blood Pressure 158/85 H 151/75 H Pulse Oximetry 95 95 Oxygen Delivery Method Room Air Oxygen Flow Rate 0 Narrative Exam Narrative: Pale ill-appearing female lying in bed Resp Other: Lungs: Decreased breath sounds with occasional basilar crackles Cardio Other: Cardiac exam: Regular rate and rhythm normal S1-S2 GI Other: Abdomen: Soft nontender nondistended Extrem Other: Extremities: 2+ edema of the hands and feet Objective Imaging Chest x-ray: Radiologist's impression: There is worsening opacity involving the right upper lobe. Additional focal consolidation present within the right lower lobe and left upper lobe. Patchy opacities in the right lung base. Low lung volumes are again noted. No pneumothorax. Right pleural effusion with possible loculated appearance, versus pleural thickening. Labs Result Diagrams: 05/11/21 11:18 05/11/21 11:18 Labs: Laboratory Results - last 24 hr 05/09/21 05/11/21 05/11/21 10:45 11:18 11:18 WBC 7.4 RBC 2.75 L Hgb 8.8 L Hct 26.8 L MCV 97.4 MCH 32.1 MCHC 33.0 RDW 20.3 H Plt Count 343 Neut % (Auto) 82.8 H Lymph % (Auto) 4.9 L [place] % (Auto) 7.7 Eos % (Auto) 4.3 H Baso % (Auto) 0.3 Neut # (Auto) 6100 Lymph # (Auto) 400 L [place] # (Auto) 600 Eos # (Auto) 300 Baso # (Auto) 0 RBC Morphology Not Reportable Anisocytosis 2+ H Sodium 133 L Potassium 4.2 Chloride 104 Carbon Dioxide 24 BUN 26 H Creatinine 0.95 Estimated GFR 57.5 L BUN/Creatinine Ratio 27.4 H Glucose 105 Calcium 8.4 NT-Pro-B Natriuret Pep 1110 H TSH 35.50 H Free T4 1.24 PFSH Medical History Acute bilateral low back pain with bilateral sciatica Arthritis Bleeding ulcer (2018) GERD (gastroesophageal reflux disease) History of frequent headaches History of transfusion (01/16/14) History of transfusion of packed red blood cells (01/16/14) HTN (hypertension) Hx of radiation therapy Left rib fracture (09/2017) Metastasizing leiomyoma of uterus Port-A-Cath in place Wears dentures Wears glasses Surgical History History of colonoscopy with polypectomy (03/22/14) History of esophagogastroduodenoscopy (EGD) (05/22/18) History of esophagogastroduodenoscopy (EGD) (03/22/14) History of lung biopsy (06/2014) History of total hysterectomy with bilateral salpingo-oophorectomy (BSO) (01/2014) Hx of bilateral cataract extraction (02/15/15) Hx of dilation and curettage (01/16/14) Hx of shoulder surgery (2018) Status post dilation and curettage Social History household members: children Smoking Status: Unknown if ever smoked alcohol intake: never Assessment & Plan Assessment & Plan narrative: Assessment & Plan narrative: Acute hypoxemic respiratory failure with acute right pneumothorax -noted in ED to desat to the 80s -chest xray showed moderate pneumothorax -improving after chest tube placement -etiology likely is known metastases -continue chest tube as directed by surgery -Dr. Santiago on consult for surgery -discontinue antibiotic, no evidence of pneumonia -patient's son is consenting to PleurX catheter with patient now in agreement -repeat xray on 05/07 shows no pneumothorax, pleurx unable to be placed, per surgery ok to dc home from surgical standpoint Patient is not hypoxic Patient reports shortness of breath today., chest x-ray shows new bilateral infiltrates, worse in the right upper lobe, question aspiration versus a Will check procalcitonin, however will start IV antibiotics, she can be switched to oral at discharge 2. Anemia -appears near baseline -has continued to downtrend, unclear etiology -no evidence of overt GI bleeding -continue to trend CBC -type and screen, guaiac stool -transfuse 1 unit of blood, patient tolerated this without difficulty - H/H 10.1 30 today, no evidence of bleeding -patient's son request pro crit, will consider at discharge -no indication for transfusion at this time 3. Elevated lactate, resolved -possibly related to hypovolemia, less likely infection, or possibly malignancy -improved with IV ,fluids,now discontinued 4. Sacral decubitus ulcer -no evidence of infection currently 5. Anorexia, failure to thrive, GERD -continue PPI per home routine 6. 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 Hypertension, stable -continue amlodipine 8. Elevated TSH, T4, suspect euthyroid sick. Would not it treat thyroid at this time, would repeat labs in 2 weeks. 9. Disposition patient finally agreed to prison.? Case Management currently working on a plan. Time Spent With Patient Critical Care time: I spent a total of [] minutes of critical care time on this patient's care today; this time is exclusive of procedural time. Quality VTE Deep Vein Thrombosis/Pulmonary Embolism Present on Admission: No
[2021-05-11] MEDS: cefTRIAXone 2,000 MG in SODIUM CHLORIDE 0.9% 100 ML 200 ML IV (18:24)
[2021-05-11] MEDS: SERTRALINE 50 MG TABLET 100 MG PO (21:06)
[2021-05-12] VITALS (11 sets, daily range): BP systolic 138–159; BP diastolic 73–85; PULSE 87–98; RESP 15–22; TEMP 36.3–36.8; O2SAT 93–98
[2021-05-12] MEDS: PANTOPRAZOLE DR 40 MG TABLET PO (05:49)
[2021-05-12] MEDS: LEVOTHYROXINE 100 MCG TABLET PO (05:49)
[2021-05-12] MEDS: PAZOPANIB 200 MG 800 EACH PO (06:37)
--- NOTE | 2021-05-12 08:41 | PC.NURSE ---
Patient with flat affect, she is compliant and cooperative. Tolerating breakfast this morning. Dressing to r rib cage from where chest tube was inserted is cdi. Her lung sounds are clear but diminished. Patient has some skin issues that can be seen under physical assessment. She will be going to a snf when insurance approves this. Denies any pain or discomfort.
--- NOTE | 2021-05-12 08:51 | CM.DPNOTE ---
Addendum entered by Nazanin Cameron 05/12/21 10:42: Faxed PASRR, Signed med list & vacc. infor to [facility] and received fax conf. Nazanin Cameron CM Asst. Original Note: Received a vm from Rochelle from [facility] at [phone], approving auth for [facility]. Auth #[id number]. Nazanin Cameron CM Asst.
--- NOTE | 2021-05-12 08:56 | CM.DPC ---
Addendum entered by Mariam Herrera R.N. 05/12/21 15:10: Kellie from Medicaid transport indicated that [facility] is unable to pharmacy picking technician patient today. She stated that they can pharmacy picking technician patient tomorrow between 10:00-11:00. Went ahead and reserved pharmacy picking technician time. Updated Shannan at [facility], she is aware of tomorrow's discharge. She is available by cell phone tomorrow, if needed. Her number is: [phone]. She already has orders, PASSR, COVID results, DC Summary and vaccination information. Updated Dr. Lucas as well. Addendum entered by Mariam Herrera R.N. 05/12/21 14:48: Kellie from [facility] transportation is awaiting to hear back from [facility] if they can pick patient up at 1700. Have not yet called Shannan at [facility], because it is not a confirmed pharmacy picking technician time. Will continue to await call back from transportation. Addendum entered by Mariam Herrera R.N. 05/12/21 14:21: Called Medicaid transport, confirmed that patient does have the transportation benefit. Let her know that patient needs to be transported today if possible. Kellie from Medicaid called back and stated that she will arrange transportation and call back. Addendum entered by Mariam Herrera R.N. 05/12/21 13:32: Was informed by Shannan at [facility], that they do not have transportation available, for their van is needed to take a patient to [place] on an emergency basis. This residential case manager has been waiting by the phone, and called her about 3 times initially trying to get a pharmacy picking technician time. Went ahead and faxed Medicaid transport to see if they can arrange pharmacy picking technician for today, and Shannan at [facility] is aware. She stated, they can take patient later today if needed. Faxed over Medicaid transport form to Medicaid, and awaiting call back from them to see if transport is available. Otherwise, patient will need to stay another day. Shannan did confirm that they can pharmacy picking technician patent tomorrow if needed. Have Shannan's cell number at [facility], which is: [phone]. Will follow up with Medicaid transport today. Addendum entered by Mariam Herrera R.N. 05/12/21 12:40: Spoke to patient's sonCarrillo, and gave him update. Let him know that patient will have no co-pay for the first 20 days she is there, and after, $178.00 a day, and if patient is there 61-100 days, there is no co-pay. Asked him if he wishes this tool planner to call him back with a time of pharmacy picking technician, and he stated, it would be nice, so he knows where his mother is at. Did originally let him know that she was going to [facility]. He is on his way to [facility]. Addendum entered by Mariam Herrera R.N. 05/12/21 10:53: Shannan called back from [facility]. She did state that she can accept patient, just needs orders. Confirmed with pharmacist at this hospital that she would be going with her chemo meds, as they are hers. Shannan is concerned about them being on signed med list. Had assistant Nazanin, fax over vaccine information, med orders, PASSR. COVID swab has been completed, but pending results. Left a message for sonCarrillo to call, but did not leave detailed information, as all numbers are generic voice mails. Do not yet have a time confirmed of pharmacy picking technician. Original Note: DCP Cont: Left a message with Shannan at [facility], as stated in note from Rochelle Back from [facility] called and stated that retirement was approved with authorization number of: [id number]. Shannan is currently in a meeting, but in the message, asked her if they can accept patient today. P: DCP to continue to work on discharge and await hearing back from [facility] to see if they can accept patient today. Will also update hospitalist during team rounds. Mariam Herrera RN/[place]
[2021-05-12] MEDS: AMLODIPINE 5 MG TABLET 10 MG PO (10:02)
[2021-05-12] MEDS: SOLIFENACIN 5 MG TABLET 10 MG PO (10:02)
[2021-05-12] MEDS: SODIUM CHLORIDE 0.9% FLUSH 10 ML IV (10:03)
--- NOTE | 2021-05-12 10:16 | P.DS_ITS ---
History of Present Illness History of Present Illness Date Patient Seen: 05/13/21 Time Patient Seen: 07:26 Chief complaint: Shortness of breath, feet swelling, yellow eyes Narrative: Per Dr. Garcia, ?Ms. 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 She states that she is feeling completely her usual. However, at baseline she is bedbound, with poor appetite, with some shortness of breath. She was noted when checking in to clinic by staff that she appeared unwell. She did endorse shortness of breath. Because of that she was taken to the ED. She denied fevers/chills, cough. She notes she has lower extremity swelling but can not say a time course for that. She has pain on her backside, and was noted by nursing to that sacral ulcers. Otherwise she responds in only very short one word answers, does not offer much information as to how she is feeling. She had a recent admission in February for a pneumothorax that was thought associated with her known malignancy. In the ED, workup was done and she was noted to have tachypnea in the 20s, and high blood pressure. Labs notable for WBC of 10.4, hgb 10.1 plt 428, Na 137, creatinine 0.82. Lactate 5.0, lfts ok. Albumin 3.4. Procalcitonin 0.23. Chest xray showed moderate right sided pneumothorax, she had chest tube placed to suction with significant sanguinous fluid removed. Repeat chest xray showed continued pneumothorax but smaller than previously. She was given treatment and admitted for further treatment. Family history: patient did not answer when asked about family history Discharge Providers Provider Date of admission: 05/03/21 13:38 Discharge Date: 05/13/21 Primary care physician: Fuad Burkett MD Consults: 05/03/21 12:46 Consult to General Surgery Stat Comment: Consulting Provider: Joann Santiago Reason for consultation: Chest tube Has provider been notified: Yes 05/05/21 17:58 Consult to Dietitian, Adult Routine Comment: Reason For Exam: poor appetite; anasarca 05/06/21 17:38 Consult to Dietitian, Adult Routine Comment: Reason For Exam: poor po intake; sacral wound 05/09/21 10:33 Consult to Occupational Therapy Evaluate & Treat Comment: Physician Instructions: Evaluate and treat Consult to Physical Therapy Evaluate & Treat Comment: Physician Instructions: Evaluate and Treat Discharge provider: Ruperto Lucas DO Summary Hospital Course Discharge Diagnosis: Please see hospital course by problem list noted below. Hospital Course: 1. Acute hypoxemic respiratory failure with acute right pneumothorax - patient initially had chest tube placement for right pneumothorax. Managed by surgery. Removed without complication. Developed slight worsening during her stay and developed a pneumonia which improved with antibiotic therapy. - no longer on supplemental oxygen at time of discharge. 2. Bilateral pneumonia - - as above patient developed slightly worsened respiratory status. discharged on 4 additional days of augmentin to complete therapy. 3. Anemia, acute on chronic. - outpatient follow up recommended with oncology, given 1 U PRBC here. Etiology not entirely clear but not evidence of active bleeding. may be related to metastatic disease. 3. Elevated lactate, resolved 5. Sacral decubitus ulcer -no evidence of infection currently 6. Anorexia, failure to thrive, GERD -continued PPI per home routine 7. 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 8.? Hypertension, stable - amlodipine increased 5 to 10 mg over the course of her stay. 9. Elevated TSH, T4, suspect euthyroid sick.?Increased home levothyroxine 50 to 100, recommend repeat labs in 4-6 weeks. Time Spent with Patient Time spent: Greater than 30 minutes Exam Vital Signs (past 8 hours): - 05/12/21 03:00 05/12/21 03:58 05/12/21 08:08 Temperature 97.5 F L 98.3 F Pulse Rate 87 94 H Respiratory Rate 20 15 Blood Pressure 138/73 159/85 H Pulse Oximetry 94 94 95 Oxygen Delivery Method Room Air Oxygen Flow Rate 0 Narrative Exam Narrative: Pale chronically ill appearing female sitting upright in hospital chair. Resp Other:?Lungs:? Decreased breath sounds with occasional basilar crackles Cardio Other:?Cardiac exam: Regular rate and rhythm normal S1-S2 GI Other:?Abdomen:? Soft nontender nondistended Extrem Other:?Extremities:? 2+ edema of the hands and feet Objective Labs Result Diagrams: 05/13/21 05:27 05/11/21 11:18 Labs: Laboratory Results - last 24 hr 05/11/21 05/11/21 11:18 11:18 WBC 7.4 RBC 2.75 L Hgb 8.8 L Hct 26.8 L MCV 97.4 MCH 32.1 MCHC 33.0 RDW 20.3 H Plt Count 343 Neut % (Auto) 82.8 H Lymph % (Auto) 4.9 L [place] % (Auto) 7.7 Eos % (Auto) 4.3 H Baso % (Auto) 0.3 Neut # (Auto) 6100 Lymph # (Auto) 400 L [place] # (Auto) 600 Eos # (Auto) 300 Baso # (Auto) 0 RBC Morphology Not Reportable Anisocytosis 2+ H Sodium 133 L Potassium 4.2 Chloride 104 Carbon Dioxide 24 BUN 26 H Creatinine 0.95 Estimated GFR 57.5 L BUN/Creatinine Ratio 27.4 H Glucose 105 Calcium 8.4 NT-Pro-B Natriuret Pep 1110 H PFSH Medical History Acute bilateral low back pain with bilateral sciatica Arthritis Bleeding ulcer (2017) GERD (gastroesophageal reflux disease) History of frequent headaches History of transfusion (01/16/14) History of transfusion of packed red blood cells (01/16/14) HTN (hypertension) Hx of radiation therapy Left rib fracture (09/2017) Metastasizing leiomyoma of uterus Port-A-Cath in place Wears dentures Wears glasses Surgical History History of colonoscopy with polypectomy (03/22/14) History of esophagogastroduodenoscopy (EGD) (05/22/18) History of esophagogastroduodenoscopy (EGD) (03/22/14) History of lung biopsy (06/2014) History of total hysterectomy with bilateral salpingo-oophorectomy (BSO) (01/2014) Hx of bilateral cataract extraction (02/15/15) Hx of dilation and curettage (01/16/14) Hx of shoulder surgery (2018) Status post dilation and curettage Social History household members: children Smoking Status: Unknown if ever smoked alcohol intake: never Discharge Plan Discharge Plan Patient Disposition: SNF Other facility: [facility] Provider Discharge Comment: Acute hypoxemic respiratory failure with acute right pneumothorax, resolved Bilateral pneumonia - discharge on 4 additional days of augmentin 2. Anemia - outpatient follow up recommended with oncology, given 1 U PRBC here. Recommend repeat CBC in 4-5 days to recheck Hg levels. 3. Elevated lactate, resolved 4. Sacral decubitus ulcer -no evidence of infection currently 5. Anorexia, failure to thrive, GERD -continue PPI per home routine 6. 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 7.? Hypertension, stable - amlodipine increased 5 to 10 mg 8. Elevated TSH, T4, suspect euthyroid sick.?Increased home levothyroxine 50 to 100, recommend repeat labs in 2 weeks. Discharge orders & Medications Prescriptions: New acetaminophen 325 mg Tablet 650 mg PO Q6HR PRN (Reason: Fever/Mild Pain (1-3)) 30 Days Qty: 60 RF: 0 amlodipine [Norvasc] 5 mg Tablet 10 mg PO DAILY 30 Days Qty: 60 RF: 0 levothyroxine [Synthroid] 100 mcg Tablet 100 mcg PO DAILY@0600 30 Days Qty: 30 RF: 0 Continued metoclopramide HCl 5 mg Tablet 5 mg PO Q6HR PRN (Reason: Nausea) RF: 0 solifenacin 10 mg Tablet 10 mg PO DAILY RF: 0 sertraline 50 mg tablet 100 mg PO BEDTIME RF: 0 pantoprazole 40 mg tablet,delayed release (DR/EC) 40 mg PO DAILY RF: 0 Votrient 200 mg tablet 800 mg PO 0700 RF: 0 Changed Robitussin Cough-Chest [place]ingo DM 5-100 mg/5 mL Liquid 10 ml PO Q4H PRN (Reason: cough) Qty: 120 RF: 1 Discontinued furosemide [Lasix] 20 mg tablet 20 mg PO QAM Qty: 5 RF: 0 amlodipine 5 mg tablet 5 mg PO DAILY RF: 0 levothyroxine 50 mcg tablet 50 mcg DAILY RF: 0 Follow up/Referrals: Fuad Burkett MD [Primary Care Provider] - Discharge Health Status Precautions: [place] Diet/Activity/Treatments Diet: Regular and Low-sodium Liquid consistency: Normal/Thin Food texture: Regular Diet comment: likes chicken/green beans, ONS enlive bid Activity: As tolerated [facility] Rehab type: Physical therapy and Occupational therapy Visit Report/Discharge Packet Instructions: Pressure Injuries, Blood Transfusion, How to Prevent Falls, DI for Chest Tube Insertion, [facility]: Wound Care Discharge Data Primary Care Provider: Fuad Burkett VTE Deep Vein Thrombosis/Pulmonary Embolism Present on Admission: No
[2021-05-12 11:14] LABS: COVID19 -Nasal RAPID Negative (Negative)
--- NOTE | 2021-05-12 11:31 | OT.IP.TRT ---
Current Diagnoses Other pneumothorax (05/03/21) Surgery Performed Operation Date: 05/05/21 10:00 <No data on this case meets the specified criteria> Operation Date: 05/07/21 12:15 <No data on this case meets the specified criteria> Occupational Therapy Treatment Note M2 OT-IP Current Condition Start: 05/11/21 12:29 Freq: Status: Active Protocol: Document 05/11/21 12:29 [facility] (Rec: 05/11/21 12:45 [facility] [id number]) Occupational Therapy Current Condition Current Condition Evaluation Date 05/11/21 Treatment Diagnosis Right pneumothorax, acute hypoxic respiratory failure, decreased mobility Diagnosis Onset Date 05/07/21 M3 OT- IP Subjective and Pain Start: 05/11/21 12:29 Freq: Status: Active Protocol: Document 05/12/21 11:26 [facility] (Rec: 05/12/21 11:31 [facility] [id number]) OT- Subjective Occupational Therapy Visit Type Type Treatment Note Visit Start Time 10:37 Visit Stop Time 10:56 Total Visit Minutes 19 Occupational Therapy Visit Comments Patient Comments Pt agreed to do sponge bath in the bed. Nursing aid in to assist. Patient/Caregiver Goals Pt did not state. OT Pain Assessment Pain When Pain Assessed At Rest Pain Present Pain Present Denied Pain M4 OT- IP ADL's Start: 05/11/21 12:29 Freq: Status: Active Protocol: Document 05/12/21 11:26 [facility] (Rec: 05/12/21 11:31 [facility] [id number]) OT [id number] Comments OT Self-Feeding Comments Not at meal time. OT ADL-Grooming Comments OT Grooming Comments Pt able to wash her face and hands after set-up while in bed. OT ADL-Oral Care Comments Oral Care Comments Not performed. OT ADL-Dressing General Eval Upper Body Dressing Ability Moderate Assistance Lower Body Dressing Ability Total Assistance Areas Needing Assistance Underpants/Brief,Socks Comments OT Dressing Comments MODA for gown management. OT ADL-Toileting General Evaluation Toileting Ability Total Assistance Areas Needing Assistance Empty Catheter or Colostomy, Manage Clothing,Perform Perineal Hygiene OT ADL-Bathing Bathing Type Bathing Type Sponge Bath General Evaluation Bathing Ability Maximal Assistance Comments OT Bathing Comments Pt able to was her face , arms , and chest after set-up and cues. M5 OT- IP IADL's Start: 05/11/21 12:29 Freq: Status: Active Protocol: Document 05/11/21 12:29 [facility] (Rec: 05/11/21 12:45 [facility] [id number]) OT-Instrumental Activities of Daily Living Home Safety Awareness Awareness of Need for Assistance at Home Decreased Awareness Ability to Problem Solve Emergency Unable to Problem Solve Situations M6 OT- IP Functional Cognition Start: 05/11/21 12:29 Freq: Status: Active Protocol: Document 05/12/21 11:26 [facility] (Rec: 05/12/21 11:31 [facility] [id number]) Cognitive Factors Limiting Selfcare Function Cognitive Comments Cognitive Assessment Comments Pt able to follow commands for bed mobility and sponge bath. Pt mainly just nods her head yes or no at this time. M7 OT- IP Mobility and Balance Start: 05/11/21 12:29 Freq: Status: Active Protocol: Document 05/12/21 11:26 [facility] (Rec: 05/12/21 11:31 [facility] [id number]) OT- Bed Mobility Assessment Rolling Type of Rolling Bilateral Level of Assistance Moderate Assistance,Maximum Assistance,Bedrails OT-Transfer Assessment Comments Mobility Comments Pt not wanting to get up at this time but able to assist to roll from MODA to MAX X 1. M8 OT- IP Objective Assessments Start: 05/11/21 12:29 Freq: Status: Active Protocol: Document 05/11/21 12:29 [facility] (Rec: 05/11/21 12:45 [facility] [id number]) OT Gross Range of Motion Upper Extremity Range of Motion Assessment Bilaterally Impaired OT Strength Upper Extremity Strength Assessment Bilaterally Impaired OT Sensation Assessment Edema Edema Comments Swelling in BUE M9 OT- IP Assessment and Plan Start: 05/11/21 12:29 Freq: Status: Active Protocol: Document 05/12/21 11:26 [facility] (Rec: 05/12/21 11:31 [facility] [id number]) OT Summary Assessment and Plan Potential Rehabilitation Potential Fair Analytic Complexity at Evaluation Moderate Summary OT Impairments Range of Motion,Strength, Balance,Functional Cognition, Functional Mobility,Self- Feeding,Grooming,Dressing, Toileting,Bathing,Toilet Transfers,Shower Transfers, Activity Tolerance Progress Towards Goals Slow Progress due to Activity Tolerance,Slow Progress due to Cognition Assessment Summary Pt able to participate in sponge bath today. Pt looking to go to skilled rehab when medically ready. Pt was cooperative. Goals Grooming Goal Independent Dressing Goal Moderate Assistance Toileting Goal Standby Assistance Bathing Goal Moderate Assistance Shower Transfer Goal Minimal Assistance Days to Meet Goals 30 Frequency of Treatment Frequency Of Treatment Once a Day Treatment Plan Other Treatment Recommendations and Next [facility] [place] [facility] [place]WW MAX X Treatment Focus 2. Discharge Recommendations OT Discharge Recommendations SNF Rehab Transportation Needs at Discharge Wheelchair/Cabulance
--- NOTE | 2021-05-12 12:03 | PT.IPTN ---
Current Diagnoses Other pneumothorax (05/03/21) Surgery Performed Operation Date: 05/05/21 10:00 <No data on this case meets the specified criteria> Operation Date: 05/07/21 12:15 <No data on this case meets the specified criteria> Physical Therapy Treatment Note M2 PT-IP Current Condition Start: 05/09/21 12:04 Freq: NEEDED Status: Active Protocol: Document 05/12/21 11:35 ER (Rec: 05/12/21 13:30 ER [id number]) Physical Therapy Current Condition Current Condition Evaluation Date 05/09/21 Treatment Diagnosis R pneumothorax; metastatic leiomyosarcoma; generalized weakness Onset Date 05/03/21 M3 PT-IP Subjective Start: 05/09/21 12:04 Freq: NEEDED Status: Active Protocol: Document 05/12/21 11:35 ER (Rec: 05/12/21 13:30 ER [id number]) Subjective Physical Therapy Visit Type Type Treatment Note Visit Start Time 11:35 Visit Stop Time 12:03 Total Visit Minutes 28 Notes KIMBERLY Busch lead tx with MOTOR [employer] SPECIALIST Paulina supervising througout treatment and providing second person assist. Vitals taken during tx: BP 149 /74 supine, HR 89, 95% SaO2 on RA. Sitting EOB BP 159/91, HR 108. Number of MOTOR [employer] SPECIALIST Visits 3 Physical Therapy Visit Comments Patient Comments Pt. was agreeable to working with therapy with head nod. Patient Goals Pt wants to return home. Therapy Pain Assessment Pain Present Pain Present Denied Pain M4 PT-IP Mobility and Gait Start: 05/09/21 12:04 Freq: NEEDED Status: Active Protocol: Document 05/12/21 11:35 ER (Rec: 05/12/21 13:30 ER [id number]) PT-Bed Mobility Assessment Rolling Type of Rolling Roll to Left Level of Assist Maximal Assistance,1 Person Assistance Supine to Sit Supine to Sit Maximum Assistance,2 Person Assistance,Bedrails Sit to Supine Sit to Supine Maximum Assistance,2 Person Assistance Scooting Scooting to Edge of Bed Maximum Assistance PT-Transfer Assessment Sit to and From Stand Sit to and from Stand Maximum Assistance,2 Person Assistance,Use of Upper Extremities Equipment Transfer Assistive Device Gait Belt,Front Wheeled Walker Transfers Transfer Destination Bed,Chair Transfer Technique Squat Pivot Transfer Ability Level of Assist Maximum Assistance,2 Person Assistance,Use of Upper Extremities Comments Mobility Comments See vitals taken above. Pt. required max A+2 for supine> sit, but demonstrated improved ability to move legs to EOB and better UE management. Pt required maxA+2 to scoot to EOB, with improved performance using UE support. Pt. demonstrated improved core strength in sitting EOB, and was able to maintain feet on floor and unsupported torso posture for approximately 1 minute before tiring and presenting with posterior torso lean. Pt. performed STS with maxA+2 with FWW siting in front. Pt. demonstrated improved strength and coordination, but still required cues for foot placement, UE placement and support. Pt. was able to stand for approximately 25 seconds, and shift weight laterally with shuffling steps . Pt. fatigued. Posterior lean increased. Pt. retured to seated position on bed at that time. Pt. was asked if she was willing to transfer to chair using squat pivot, and she agreed by nod of head. Squat pivot, maxA+2 to perform due to lack of strength, diminished ability to perform forward lean, and cues for hand placement, foot placement , foot movement, and proper form. Pt. was able to sit, but off alignment. Pt. returned to standing, max a+2 to readjust position, transfer pad, and waffle cushion. Pt returned to sitting, and scooted back in chair with maxA+2 and transfer pad. Pt. left in chair, with call light , and all necessary items within reach. Notified nurse fall risk. Recommended chair alarm. Nurse reported that she did not feel pt. was a safety concern and no need for chair alarm. Gait Assessment Comments Gait Comments Squat pivot only, shuffle stepping 3 steps maxA+2 bed<> chair. Stair Climbing Assessment Comments Stair Climbing Comments unable to assess. PT-Balance Assessment Sitting Balance and Reactions Static Sitting Balance Ability Fair Dynamic Sitting Balance Ability Poor Standing Balance and Reactions Static Standing Balance Ability Poor Dynamic Standing Balance Ability Poor Device Used FWW Comments Other Balance Tests/Deviations/Treatment Pt. was able to sit EOB w/ UE : support for appoximately 1 minute before fatigueing and returning to posterior lean. M5 PT-IP Objective Assessments Start: 05/09/21 12:04 Freq: NEEDED Status: Active Protocol: Document 05/09/21 10:55 AB (Rec: 05/09/21 12:18 AB [id number]) Orientation Orientation/Cognition Level of Alertness Alert Orientation Name Safety Awareness Decreased Safety Awareness Memory Description Short Term Impaired Gross Range of Motion Lower Extremity ROM Assessment Within Functional Limits Strength Lower Extremity Strength Assessment Bilaterally Impaired Hip 3+/5 Knee 3+/5 Muscle Tone Muscle Tone WNL Yes Other Assessments Other Other Assessments (+) edema: BUE/LE M6 PT-IP Treatment Start: 05/09/21 12:04 Freq: NEEDED Status: Active Protocol: Document 05/12/21 11:35 ER (Rec: 05/12/21 13:30 ER [id number]) Physical Therapy Treatment Exercises Exercises Quad Sets,Heel Slides,Supine Hip Abduction Knee ROM Measurement approx 5-75 knee flexion Education Education Provided Precautions,Weight Bearing Status,Safety M7 PT-IP Assessment and Plan Start: 05/09/21 12:04 Freq: NEEDED Status: Active Protocol: Document 05/12/21 11:35 ER (Rec: 05/12/21 13:30 ER [id number]) PT Summary Assessment and Plan Potential Rehabilitation Potential Fair Status of Condition at Evaluation Evolving Summary Impairments Pain,ROM,Strength,Balance, Coordination,Sensation,Tone, Cognition,Bed Mobility, Transfers,Gait,Activity Tolerance Progress Towards Goals Slow Progress due to Activity Tolerance Assessment Summary Pt. continnues to require Max A+2 for all mobility, including cueing for upright posture/ stance, UE/ LE positioning however demonstrating improved UE support, and LE movement. Was able to maintain seated upright posture for 1 min with UE support. Demonstrating decreased tendency for posterior lean. Pt. able to perform STS, maxA+2, but with decreased cueing and improved strength and coordination. SPT bed>chair, maxA+2, but with decreased cueing and improved strenght and coordination. Pt requires SNF for improved strength and functional mobility. Will continue to assess progress. [ End ] Goals Bed Mobility Goal Moderate Assistance Transfer Goal Moderate Assistance Gait Goal Moderate Assistance,Front Wheel Walker Gait Distance 25 Days to Meet Goals 10 Frequency of Treatment Frequency Of Treatment Once a Day Treatment Plan Physical Therapy Treatment Plan Bed Mobility Training,Transfer Training,Gait Training, Therapeutic Exercise,Balance Retraining,Post Op Education, Discharge Planning,Hot or Cold Pack,Neuromuscular Re-ed, Coordination Retraining,Manual Therapy Other Recommendations and Next Treatment Bed mob, standing w/ FWW, Focus transfers. Precautions Other Precautions falls; chemo precautions Recommendations To Nursing Amount of Assist Needed Mechanical Lift Discharge Recommendations PT Discharge Recommendations SNF Rehab Transportation Needs at Discharge Wheelchair/Cabulance,Stretcher /Ambulance
--- NOTE | 2021-05-12 12:03 | PT.IPTN ---
Current Diagnoses Other pneumothorax (05/03/21) Surgery Performed Operation Date: 05/05/21 10:00 <No data on this case meets the specified criteria> Operation Date: 05/07/21 12:15 <No data on this case meets the specified criteria> Physical Therapy Treatment Note M2 PT-IP Current Condition Start: 05/09/21 12:04 Freq: NEEDED Status: Active Protocol: Document 05/12/21 11:35 ER (Rec: 05/12/21 13:30 ER [id number]) Physical Therapy Current Condition Current Condition Evaluation Date 05/09/21 Treatment Diagnosis R pneumothorax; metastatic leiomyosarcoma; generalized weakness Onset Date 05/03/21 M3 PT-IP Subjective Start: 05/09/21 12:04 Freq: NEEDED Status: Active Protocol: Document 05/12/21 11:35 ER (Rec: 05/12/21 13:30 ER [id number]) Subjective Physical Therapy Visit Type Type Treatment Note Visit Start Time 11:35 Visit Stop Time 12:03 Total Visit Minutes 28 Notes KIMBERLY Busch lead tx with CHOIR DIRECTOR Paulina supervising througout treatment and providing second person assist. Vitals taken during tx: BP 149 /74 supine, HR 89, 95% SaO2 on RA. Sitting EOB BP 159/91, HR 108. Number of CHOIR DIRECTOR Visits 3 Physical Therapy Visit Comments Patient Comments Pt. was agreeable to working with therapy with head nod. Patient Goals Pt wants to return home. Therapy Pain Assessment Pain Present Pain Present Denied Pain M4 PT-IP Mobility and Gait Start: 05/09/21 12:04 Freq: NEEDED Status: Active Protocol: Document 05/12/21 11:35 ER (Rec: 05/12/21 13:30 ER [id number]) PT-Bed Mobility Assessment Rolling Type of Rolling Roll to Left Level of Assist Maximal Assistance,1 Person Assistance Supine to Sit Supine to Sit Maximum Assistance,2 Person Assistance,Bedrails Sit to Supine Sit to Supine Maximum Assistance,2 Person Assistance Scooting Scooting to Edge of Bed Maximum Assistance PT-Transfer Assessment Sit to and From Stand Sit to and from Stand Maximum Assistance,2 Person Assistance,Use of Upper Extremities Equipment Transfer Assistive Device Gait Belt,Front Wheeled Walker Transfers Transfer Destination Bed,Chair Transfer Technique Squat Pivot Transfer Ability Level of Assist Maximum Assistance,2 Person Assistance,Use of Upper Extremities Comments Mobility Comments See vitals taken above. Pt. required max A+2 for supine> sit, but demonstrated improved ability to move legs to EOB and better UE management. Pt required maxA+2 to scoot to EOB, with improved performance using UE support. Pt. demonstrated improved core strength in sitting EOB, and was able to maintain feet on floor and unsupported torso posture for approximately 1 minute before tiring and presenting with posterior torso lean. Pt. performed STS with maxA+2 with FWW siting in front. Pt. demonstrated improved strength and coordination, but still required cues for foot placement, UE placement and support. Pt. was able to stand for approximately 25 seconds, and shift weight laterally with shuffling steps . Pt. fatigued. Posterior lean increased. Pt. retured to seated position on bed at that time. Pt. was asked if she was willing to transfer to chair using squat pivot, and she agreed by nod of head. Squat pivot, maxA+2 to perform due to lack of strength, diminished ability to perform forward lean, and cues for hand placement, foot placement , foot movement, and proper form. Pt. was able to sit, but off alignment. Pt. returned to standing, max a+2 to readjust position, transfer pad, and waffle cushion. Pt returned to sitting, and scooted back in chair with maxA+2 and transfer pad. Pt. left in chair, with call light , and all necessary items within reach. Notified nurse fall risk. Recommended chair alarm. Nurse reported that she did not feel pt. was a safety concern and no need for chair alarm. Gait Assessment Comments Gait Comments Squat pivot only, shuffle stepping 3 steps maxA+2 bed<> chair. Stair Climbing Assessment Comments Stair Climbing Comments unable to assess. PT-Balance Assessment Sitting Balance and Reactions Static Sitting Balance Ability Fair Dynamic Sitting Balance Ability Poor Standing Balance and Reactions Static Standing Balance Ability Poor Dynamic Standing Balance Ability Poor Device Used FWW Comments Other Balance Tests/Deviations/Treatment Pt. was able to sit EOB w/ UE : support for appoximately 1 minute before fatigueing and returning to posterior lean. M5 PT-IP Objective Assessments Start: 05/09/21 12:04 Freq: NEEDED Status: Active Protocol: Document 05/09/21 10:55 AB (Rec: 05/09/21 12:18 AB [id number]) Orientation Orientation/Cognition Level of Alertness Alert Orientation Name Safety Awareness Decreased Safety Awareness Memory Description Short Term Impaired Gross Range of Motion Lower Extremity ROM Assessment Within Functional Limits Strength Lower Extremity Strength Assessment Bilaterally Impaired Hip 3+/5 Knee 3+/5 Muscle Tone Muscle Tone WNL Yes Other Assessments Other Other Assessments (+) edema: BUE/LE M6 PT-IP Treatment Start: 05/09/21 12:04 Freq: NEEDED Status: Active Protocol: Document 05/12/21 11:35 ER (Rec: 05/12/21 13:30 ER [id number]) Physical Therapy Treatment Exercises Exercises Quad Sets,Heel Slides,Supine Hip Abduction Knee ROM Measurement approx 5-75 knee flexion Education Education Provided Precautions,Weight Bearing Status,Safety M7 PT-IP Assessment and Plan Start: 05/09/21 12:04 Freq: NEEDED Status: Active Protocol: Document 05/12/21 11:35 ER (Rec: 05/12/21 13:30 ER [id number]) PT Summary Assessment and Plan Potential Rehabilitation Potential Fair Status of Condition at Evaluation Evolving Summary Impairments Pain,ROM,Strength,Balance, Coordination,Sensation,Tone, Cognition,Bed Mobility, Transfers,Gait,Activity Tolerance Progress Towards Goals Slow Progress due to Activity Tolerance Assessment Summary Pt. continnues to require Max A+2 for all mobility, including cueing for upright posture/ stance, UE/ LE positioning however demonstrating improved UE support, and LE movement. Was able to maintain seated upright posture for 1 min with UE support. Demonstrating decreased tendency for posterior lean. Pt. able to perform STS, maxA+2, but with decreased cueing and improved strength and coordination. SPT bed>chair, maxA+2, but with decreased cueing and improved strenght and coordination. Pt requires SNF for improved strength and functional mobility. Will continue to assess progress. [ End ] Goals Bed Mobility Goal Moderate Assistance Transfer Goal Moderate Assistance Gait Goal Moderate Assistance,Front Wheel Walker Gait Distance 25 Days to Meet Goals 10 Frequency of Treatment Frequency Of Treatment Once a Day Treatment Plan Physical Therapy Treatment Plan Bed Mobility Training,Transfer Training,Gait Training, Therapeutic Exercise,Balance Retraining,Post Op Education, Discharge Planning,Hot or Cold Pack,Neuromuscular Re-ed, Coordination Retraining,Manual Therapy Other Recommendations and Next Treatment Bed mob, standing w/ FWW, Focus transfers. Precautions Other Precautions falls; chemo precautions Recommendations To Nursing Amount of Assist Needed 2 Person Assist Discharge Recommendations PT Discharge Recommendations SNF Rehab Transportation Needs at Discharge Stretcher/Ambulance
--- NOTE | 2021-05-12 12:03 | PT.IPTN ---
Current Diagnoses Other pneumothorax (05/03/21) Surgery Performed Operation Date: 05/05/21 10:00 <No data on this case meets the specified criteria> Operation Date: 05/07/21 12:15 <No data on this case meets the specified criteria> Physical Therapy Treatment Note M2 PT-IP Current Condition Start: 05/09/21 12:04 Freq: NEEDED Status: Active Protocol: Document 05/12/21 11:35 ER (Rec: 05/12/21 13:30 ER [id number]) Physical Therapy Current Condition Current Condition Evaluation Date 05/09/21 Treatment Diagnosis R pneumothorax; metastatic leiomyosarcoma; generalized weakness Onset Date 05/03/21 M3 PT-IP Subjective Start: 05/09/21 12:04 Freq: NEEDED Status: Active Protocol: Document 05/12/21 11:35 ER (Rec: 05/12/21 13:30 ER [id number]) Subjective Physical Therapy Visit Type Type Treatment Note Visit Start Time 11:35 Visit Stop Time 12:03 Total Visit Minutes 28 Notes KIMBERLY Busch lead tx with SOFTWARE CONFIGURATION MANAGER Paulina supervising througout treatment and providing second person assist. Vitals taken during tx: BP 149 /74 supine, HR 89, 95% SaO2 on RA. Sitting EOB BP 159/91, HR 108. Number of SOFTWARE CONFIGURATION MANAGER Visits 3 Physical Therapy Visit Comments Patient Comments Pt. was agreeable to working with therapy with head nod. Patient Goals Pt wants to return home. Therapy Pain Assessment Pain Present Pain Present Denied Pain M4 PT-IP Mobility and Gait Start: 05/09/21 12:04 Freq: NEEDED Status: Active Protocol: Document 05/12/21 11:35 ER (Rec: 05/12/21 13:30 ER [id number]) PT-Bed Mobility Assessment Rolling Type of Rolling Roll to Left Level of Assist Maximal Assistance,1 Person Assistance Supine to Sit Supine to Sit Maximum Assistance,2 Person Assistance,Bedrails Sit to Supine Sit to Supine Maximum Assistance,2 Person Assistance Scooting Scooting to Edge of Bed Maximum Assistance PT-Transfer Assessment Sit to and From Stand Sit to and from Stand Maximum Assistance,2 Person Assistance,Use of Upper Extremities Equipment Transfer Assistive Device Gait Belt,Front Wheeled Walker Transfers Transfer Destination Bed,Chair Transfer Technique Squat Pivot Transfer Ability Level of Assist Maximum Assistance,2 Person Assistance,Use of Upper Extremities Comments Mobility Comments See vitals taken above. Pt. required max A+2 for supine> sit, but demonstrated improved ability to move legs to EOB and better UE management. Pt required maxA+2 to scoot to EOB, with improved performance using UE support. Pt. demonstrated improved core strength in sitting EOB, and was able to maintain feet on floor and unsupported torso posture for approximately 1 minute before tiring and presenting with posterior torso lean. Pt. performed STS with maxA+2 with FWW siting in front. Pt. demonstrated improved strength and coordination, but still required cues for foot placement, UE placement and support. Pt. was able to stand for approximately 25 seconds, and shift weight laterally with shuffling steps . Pt. fatigued. Posterior lean increased. Pt. retured to seated position on bed at that time. Pt. was asked if she was willing to transfer to chair using squat pivot, and she agreed by nod of head. Squat pivot, maxA+2 to perform due to lack of strength, diminished ability to perform forward lean, and cues for hand placement, foot placement , foot movement, and proper form. Pt. was able to sit, but off alignment. Pt. returned to standing, max a+2 to readjust position, transfer pad, and waffle cushion. Pt returned to sitting, and scooted back in chair with maxA+2 and transfer pad. Pt. left in chair, with call light , and all necessary items within reach. Notified nurse fall risk. Recommended chair alarm. Nurse reported that she did not feel pt. was a safety concern and no need for chair alarm. Gait Assessment Comments Gait Comments Squat pivot only, shuffle stepping 3 steps maxA+2 bed<> chair. Stair Climbing Assessment Comments Stair Climbing Comments unable to assess. PT-Balance Assessment Sitting Balance and Reactions Static Sitting Balance Ability Fair Dynamic Sitting Balance Ability Poor Standing Balance and Reactions Static Standing Balance Ability Poor Dynamic Standing Balance Ability Poor Device Used FWW Comments Other Balance Tests/Deviations/Treatment Pt. was able to sit EOB w/ UE : support for appoximately 1 minute before fatigueing and returning to posterior lean. M5 PT-IP Objective Assessments Start: 05/09/21 12:04 Freq: NEEDED Status: Active Protocol: Document 05/09/21 10:55 AB (Rec: 05/09/21 12:18 AB [id number]) Orientation Orientation/Cognition Level of Alertness Alert Orientation Name Safety Awareness Decreased Safety Awareness Memory Description Short Term Impaired Gross Range of Motion Lower Extremity ROM Assessment Within Functional Limits Strength Lower Extremity Strength Assessment Bilaterally Impaired Hip 3+/5 Knee 3+/5 Muscle Tone Muscle Tone WNL Yes Other Assessments Other Other Assessments (+) edema: BUE/LE M6 PT-IP Treatment Start: 05/09/21 12:04 Freq: NEEDED Status: Active Protocol: Document 05/12/21 11:35 ER (Rec: 05/12/21 13:30 ER [id number]) Physical Therapy Treatment Exercises Exercises Quad Sets,Heel Slides,Supine Hip Abduction Knee ROM Measurement approx 5-75 knee flexion Education Education Provided Precautions,Weight Bearing Status,Safety M7 PT-IP Assessment and Plan Start: 05/09/21 12:04 Freq: NEEDED Status: Active Protocol: Document 05/12/21 11:35 ER (Rec: 05/12/21 13:30 ER [id number]) PT Summary Assessment and Plan Potential Rehabilitation Potential Fair Status of Condition at Evaluation Evolving Summary Impairments Pain,ROM,Strength,Balance, Coordination,Sensation,Tone, Cognition,Bed Mobility, Transfers,Gait,Activity Tolerance Progress Towards Goals Slow Progress due to Activity Tolerance Assessment Summary Pt. continnues to require Max A+2 for all mobility, including cueing for upright posture/ stance, UE/ LE positioning however demonstrating improved UE support, and LE movement. Was able to maintain seated upright posture for 1 min with UE support. Demonstrating decreased tendency for posterior lean. Pt. able to perform STS, maxA+2, but with decreased cueing and improved strength and coordination. SPT bed>chair, maxA+2, but with decreased cueing and improved strenght and coordination. Pt requires SNF for improved strength and functional mobility. Will continue to assess progress. [ End ] Goals Bed Mobility Goal Moderate Assistance Transfer Goal Moderate Assistance Gait Goal Moderate Assistance,Front Wheel Walker Gait Distance 25 Days to Meet Goals 10 Frequency of Treatment Frequency Of Treatment Once a Day Treatment Plan Physical Therapy Treatment Plan Bed Mobility Training,Transfer Training,Gait Training, Therapeutic Exercise,Balance Retraining,Post Op Education, Discharge Planning,Hot or Cold Pack,Neuromuscular Re-ed, Coordination Retraining,Manual Therapy Other Recommendations and Next Treatment Bed mob, standing w/ FWW, Focus transfers. Precautions Other Precautions falls; chemo precautions Recommendations To Nursing Amount of Assist Needed Mechanical Lift Discharge Recommendations PT Discharge Recommendations SNF Rehab Transportation Needs at Discharge Wheelchair/Cabulance,Stretcher /Ambulance
--- NOTE | 2021-05-12 15:57 | P.PN_ITS ---
Subjective Subjective Date Patient Seen: 05/12/21 Time Patient Seen: 15:58 Interval history: 75-year-old female admitted to the hospital with a pneumothorax, required chest tube placement.? She has metastatic leiomyosarcoma.?Patient reports some right leg weakness, not noted with PT or with me. Denies difficulty with sensation, speech issues. Denies chest pain or shortess of breath. Exam Vital Signs (past 8 hours): - 05/12/21 08:08 05/12/21 09:40 05/12/21 14:50 Temperature 98.3 F Pulse Rate 94 H 92 H Respiratory Rate 15 16 Blood Pressure 159/85 H 144/77 H Pulse Oximetry 95 94 98 05/12/21 15:47 Temperature Pulse Rate Respiratory Rate Blood Pressure Pulse Oximetry 94 Oxygen Delivery Method Room Air Oxygen Flow Rate 0 Narrative Exam Narrative: Pale ill-appearing female lying in bed Resp Other:?Lungs:? Decreased breath sounds with occasional basilar crackles Cardio Other:?Cardiac exam: Regular rate and rhythm normal S1-S2 GI Other:?Abdomen:? Soft nontender nondistended Extrem Other:?Extremities:? 1-2+ edema of the hands and feet NEURO: no facial asymmetry, no deficits in sensation to light touch, grossly 4/5 strength bilaterally and equal. Objective Labs Result Diagrams: 05/11/21 11:18 05/11/21 11:18 Labs: Laboratory Results - last 24 hr 05/12/21 10:46 SARS-CoV-2 (PCR) Negative [facility] Medical History Acute bilateral low back pain with bilateral sciatica Arthritis Bleeding ulcer (2017) GERD (gastroesophageal reflux disease) History of frequent headaches History of transfusion (01/16/14) History of transfusion of packed red blood cells (01/16/14) HTN (hypertension) Hx of radiation therapy Left rib fracture (09/2017) Metastasizing leiomyoma of uterus Port-A-Cath in place Wears dentures Wears glasses Surgical History History of colonoscopy with polypectomy (03/22/14) History of esophagogastroduodenoscopy (EGD) (05/22/18) History of esophagogastroduodenoscopy (EGD) (03/22/14) History of lung biopsy (06/2014) History of total hysterectomy with bilateral salpingo-oophorectomy (BSO) (01/2014) Hx of bilateral cataract extraction (02/15/15) Hx of dilation and curettage (01/16/14) Hx of shoulder surgery (2019) Status post dilation and curettage Social History household members: children Smoking Status: Unknown if ever smoked alcohol intake: never Assessment & Plan Assessment & Plan narrative: Acute hypoxemic respiratory failure with acute right pneumothorax with development of a bilateral bacterial pneumonia. -noted in ED to desat to the 80s -chest xray showed moderate pneumothorax -improving after chest tube placement, now removed. -etiology likely is known metastases -continue chest tube as directed by surgery -Dr. Santiago on consult for surgery -discontinue antibiotic, no evidence of pneumonia -patient's son is consenting to PleurX catheter with patient now in agreement -repeat xray on 05/07 shows no pneumothorax, pleurx unable to be placed, per surgery ok to il home from surgical standpoint Patient is not hypoxic Patient reports shortness of breath yesterday chest x-ray shows new bilateral infiltrates, worse in the right upper lobe. Improved symptoms thus far on antibiotics. 2. Anemia -no evidence of overt GI bleeding -transfused 1 unit of blood, patient tolerated this without difficulty - H/H 10.1 30 after transfusion, an over correction. Now to 8.8 after. Recommend repeat evaluation as outpatient. -patient's son request EPO, recommend follow up with her oncologist as an outpatient for further management. -no indication for transfusion at this time 3. Elevated lactate, resolved -possibly related to hypovolemia, less likely infection, or possibly malignancy -improved with IV ,fluids,now discontinued 4. Sacral decubitus ulcer -no evidence of infection currently 5. Anorexia, failure to thrive, GERD -continue PPI per home routine 6. 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 Hypertension, stable -continue amlodipine, increased this admit from 5 to 10 mg. 8. Elevated TSH. Synthroid was increased from 50 to 100 this admission. would r epeat labs in 4 weeks. 9. Disposition patient finally agreed to nursing home. Stable today however no transportation available. Plan for tomorrow. Time Spent With Patient Critical Care time: I spent a total of [] minutes of critical care time on this patient's care today; this time is exclusive of procedural time. Quality VTE Deep Vein Thrombosis/Pulmonary Embolism Present on Admission: No
[2021-05-12] MEDS: SERTRALINE 50 MG TABLET 100 MG PO (20:44)
--- NOTE | 2021-05-13 02:05 | PC.NURSE ---
Patient is alert and oriented but appears disgruntled and would not maintain eye contact during conversation. Has tardive dyskinesia type mouth movements. Breath sounds diminished at bases but CTA with RA sat of 94%. HRR. BP 148/78 and has been trending 140-150 range. Denied nausea. BT present and abdomen is soft. Indwelling catheter is patent; urine is clear yellow. Is being repositioned q2h as not able to move herself. Coccyx/buttocks erythemic but blanchable; has waffle cushion beneath her. Denied pain. Has bilateral upper/lower extremity edema. Wearing bilateral calf SCD's. Fall risk score is high; chair alarm placed as bed alarm is not functioning at this time. Remains on chemo precautions related to use of Votrient.
[2021-05-13 03:40] VITALS: BP 151/80; PULSE 93; RESP 22; TEMP 36.7; O2SAT 93
[2021-05-13] MEDS: LEVOTHYROXINE 100 MCG TABLET PO (05:46)
[2021-05-13] MEDS: PANTOPRAZOLE DR 40 MG TABLET PO (05:47)
[2021-05-13 06:09] LABS: Add Manual Diff / Slide Review NO; Basophils Absolute Auto 0 /uL (0-100); Basophils Percent Auto 0.6 % (0-2); Eosinophils Absolute Auto 400 /uL (0-450); Eosinophils Percent Auto 6.9 % (2-4); Hematocrit 26.5 % (36-46); Hemoglobin 8.5 g/dL (12.0-16.0); Lymphocytes Absolute Auto 500 /uL (1100-4500); Mean Corpuscular Hemoglobin 31.6 PG (26-34); Mean Corpuscular Volume 98.6 fL (80-100); Monocytes Absolute Auto 600 /uL (0-900); Monocytes Percent Auto 9.9 % (3-14); Neutrophils Absolute Auto 4200 /uL (1500-7000); Neutrophils Percent Auto 73.6 % (50-75); Platelet Count 340 X10^3/uL (150-400); Red Blood Cell Count 2.69 X10^6/uL (4.0-5.2); Red Cell Distribution Width 20.4 % (11.6-14.8); White Blood Cell Count 5.8 X10^3/uL (4.5-11.0)
[2021-05-13 06:28] LABS: Anisocytosis 2+
[2021-05-13] MEDS: PAZOPANIB 200 MG 800 EACH PO (06:31)
[2021-05-13 06:33] LABS: Poikilocytosis 1+
[2021-05-13 07:00] VITALS: BP 148/79; PULSE 96; RESP 18; TEMP 36.8; O2SAT 100
[2021-05-13 08:00] VITALS: O2SAT 93
[2021-05-13] MEDS: AMLODIPINE 5 MG TABLET 10 MG PO (09:40)
[2021-05-13] MEDS: MAGNESIUM HYDROXIDE 30 ML UDC PO (09:40)
[2021-05-13] MEDS: SENNOSIDES 8.6 MG TABLET 17.2 MG PO (09:40)
--- NOTE | 2021-05-13 10:12 | PC.NURSE ---
Addendum entered by Abigail Davis R.N. 05/13/21 11:34: [facility] [employer] transportation here to shrimp picker patient via to [facility]. Katya lift required from bed to . Discharged/transferred as ordered in stable condition. Original Note: Day note: Report given to Soumya nurse at receiving facility at [facility]. Awaiting for transportation.
--- NOTE | 2021-05-13 11:24 | PT-IP ANOTE ---
Pt was eating breakfast at 0920 when arrived, agreeable to working with therapy later in the am. TOOLING SPECIALIST coordinated with nursing to return to assist in SPT when transportation arrived for DC to rehab facility between 10- 11am. TOOLING SPECIALIST periodically returned to provide tx but told transportation has not arrived. Nursing volrojelio'd TOOLING SPECIALIST at 1122 for transfer assist, when arrived at 1124 nursing was finishing ruthy transferring pt to w/c. TOOLING SPECIALIST was unable to provide reassessment of mobility progress before pt DC'd facility.
--- NOTE | 2021-05-13 14:03 | CM.DPNOTE ---
Addendum entered by TEO Vazquez 05/13/21 14:40: ADD: According to RN Coordinator Kellie, Shannan at [facility] now has information for patient's friend that will be picking up/dropping off chemo med tomorrow. if this person cannot complete this taks, Shannan will grape picker from the acute care floor. URBANO Original Note: DCP Note All arranged for DC to [facility] today, [facility] to p/u between [phone]. Updated RN Abigail, provided nurse to nurse report number. According to Shannan at [facility]; home chemo med did not come with patient. RN Coordinator Kellie and DIONE Joshua aware and Tres has secured a friend to pick this home med up (stored in safe on the acute care floor) and deliver to [facility] tomorrow. According to Tres, contact w/son Carrillo was attempted and he is currently in the hospital, according to a family friend. Patient/son have numerous animals, including horses, that are being cared for by friends. Plan: DC today to [facility] via [facility] transport [place]
--- NOTE | 2021-06-14 13:17 | CM.DPC ---
SHIVA received a call from Nicole Nolasco ([phone]) with [facility] inquiring if pt was still admitted and if not then when pt discharged and to where. SHIVA called back and left msg with Nicole updating her that pt discharged a month ago 05/13/21 to [facility] and provided the contact number for [facility] for Nicole to follow up with. BF
== END 2021-05-13 11:38 | DRG 199 ==
LOC: ED 13:38 → AC 13:39
PROVIDERS: Internal Medicine; Admitting Provider Internal Medicine; Emergency Provider Emergency Medicine; PCP Internal Medicine; Referring Provider Emergency Medicine; Visit Provider Internal Medicine
DX: J93.83 Other pneumothorax (principal); J96.01 Acute respiratory failure with hypoxia; J15.9 Unspecified bacterial pneumonia; J91.0 Malignant pleural effusion; C78.7 Secondary malignant neoplasm of liver and intrahepatic bile duct; C78.02 Secondary malignant neoplasm of left lung; C78.01 Secondary malignant neoplasm of right lung; E44.0 Moderate protein-calorie malnutrition; C55 Malignant neoplasm of uterus, part unspecified; D63.0 Anemia in neoplastic disease; L89.159 Pressure ulcer of sacral region, unspecified stage; Z68.24 Body mass index [BMI] 24.0-24.9, adult; K21.9 Gastro-esophageal reflux disease without esophagitis; I10 Essential (primary) hypertension; R63.0 Anorexia; R62.7 Adult failure to thrive; R94.6 Abnormal results of thyroid function studies; Z20.822 Contact with and (suspected) exposure to COVID-19
CPT/HCPCS: 32551; 36415; 36430; 36592; 71045; 80048; 80053; 81001; 82533; 83605; 83690; 83735; 83880; 84145; 84439; 84443; 85025; 85027; 86850; 86900; 86901; 87040; 87635; 93005; 94760; 96360; 96361; 97110; 97162; 97166; 97530; 97535; 99231; 99284; 99285; C9803; P9016; J0360; J0696; J1940; J2543

== ENCOUNTER → 2021-05-31 14:16 | Outpatient (CLI) | payer OTHER, MEDICAID, SELFPAY ==
[2021-05-03 20:35] VITALS: BMI 24.2
--- NOTE | 2021-05-31 14:17 | DI.CT.S_ITS ---
PROCEDURE: CT CHEST ABD PEL W CON INDICATIONS: restaging sarcoma TECHNIQUE: After the administration of oral and intravenous contrast, axial sections acquired from the supraclavicular neck to the pubic symphysis. Coronal and sagittal reformats were performed. For radiation dose reduction, the following was used: automated exposure control, adjustment of mA and/or kV according to patient size. COMPARISON: [facility], CT, CT CHEST ABD PEL W CON, 02/08/2021, 10:50. FINDINGS: Image quality: Excellent. CHEST: Lower Neck: No enlarged lymph nodes. Thyroid: Within normal limits. Axillae: No enlarged lymph nodes. Chest Wall: Unremarkable. Lungs and Airways: The appearance of the pulmonary parenchyma is not significantly changed since the most recent prior study. Multifocal consolidative processes are stable. Stable 6 mm posterior right upper lobe pulmonary nodule image 69/3. Unchanged 4 mm left lower lobe pulmonary nodule image 158/3. Unchanged 1.2 cm pulmonary nodule, left lower lobe, image 158/3. Stable 5 mm pulmonary nodule anterior left upper lobe, image 84/3. Pleura: Slight interval increase in bilateral pleural effusions. The right pleural effusion is somewhat loculated. Heart: Heart size is normal. No pericardial effusion. Thoracic Vessels: The aorta and pulmonary arteries demonstrate normal size. Mediastinum and Elaine: No enlarged lymph nodes. Esophagus: No wall thickening. Large hiatal hernia. ABDOMEN: Liver: Extensive hepatic metastatic disease, as before. There is again noted to be involvement of most of the left lobe of the liver. Multiple right-sided Patak lesions are also present. There does not appear to be significant change since the most recent prior study. Gallbladder: Single calcified gallstone. Biliary ducts: Unremarkable. Pancreas: Unremarkable. Spleen: Unremarkable. Adrenal Glands: Unremarkable. Kidneys and Ureters: Unremarkable. Stomach and Bowel: Very large rectal fecal impaction.4 Peritoneum: No abnormal intraperitoneal fluid. No free air. Ventral Wall: No hernia. Abdominal Nodes: No retroperitoneal or mesenteric adenopathy by size criteria. Vessels: Aorta and inferior vena cava are normal in size. PELVIS: Pelvic Organs: Uterus is surgically absent.. Bladder: A Ferreira catheter is present in the bladder. Pelvic Nodes: No enlarged lymph nodes. Miscellaneous: No inguinal hernias are seen. Bones: Diffuse degenerative change. No lytic or blastic bony lesions identified. IMPRESSION: 1. 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 2. The visualized pulmonary nodules are not significantly changed. Some of the nodules are obscured by consolidation, as was the case on the most recent prior study. No new or increasing pulmonary nodules were identified today. 3. Slight interval increase in bilateral pleural effusions, right greater than left. The right pleural effusion is somewhat loculated. 4. Extensive liver metastatic disease appears stable. 5. Very large rectal fecal impaction. Dictated by: Vignesh Winkler M.D. on 05/31/2021 at 16:23 Approved by: Vignesh Winkler M.D. on 05/31/2021 at 16:37
--- NOTE | 2021-08-16 16:43 | ONC.SCHED ---
Submitted PA request through [employer] for CT scan ordered today. Left Carrillo, patient's son, a message regarding CT because I noticed that there was a pending auth for [facility] for a CT. Because the test being reviewed for [facility] was Chest only, I went ahead and submitted for one for here as Dr. Rogers ordered CT Chest/Abdomen/Pelvis. Will inform Carrillo when I talk with him tomorrow, hopefully.
== END ==
PROVIDERS: PCP Internal Medicine; Referring Provider Internal Medicine Medical Oncology; Visit Provider Internal Medicine Medical Oncology
DX: C49.9 Malignant neoplasm of connective and soft tissue, unspecified (principal); C78.7 Secondary malignant neoplasm of liver and intrahepatic bile duct; J90 Pleural effusion, not elsewhere classified; R91.8 Other nonspecific abnormal finding of lung field; K56.41 Fecal impaction
CPT/HCPCS: 71260; 74177

== ENCOUNTER → 2021-09-04 12:00 | Outpatient (CLI) | payer OTHER, MEDICAID, SELFPAY ==
[2021-05-03 20:35] VITALS: BMI 24.2
--- NOTE | 2021-09-04 12:01 | DI.CT.S_ITS ---
PROCEDURE: CT CHEST ABD PEL W CON INDICATIONS: staging sarcoma TECHNIQUE: After the administration of oral and intravenous contrast, axial sections acquired from the supraclavicular neck to the pubic symphysis. Coronal and sagittal reformats were performed. For radiation dose reduction, the following was used: automated exposure control, adjustment of mA and/or kV according to patient size. COMPARISON: [facility], CT, CT ANGIO CHEST PE PROTOCOL, 03/14/2021, 19:12. [facility], CT, CT CHEST ABD PEL W CON, 05/31/2021, 15:18. FINDINGS: Image quality: Excellent. CHEST: Lower Neck: No enlarged lymph nodes. Thyroid: Within normal limits. Axillae: No enlarged lymph nodes. Chest Wall: Unremarkable. Lungs and Airways: There is extensive pulmonary scarring redemonstrated at the right apex. Consolidative radiopacities are present within the superior segment of the right lower lobe. Pulmonary scarring is present within the inferior aspect of the left hilum. A 2.3 x 1.1 cm nodular mass is present within the left lower lobe which is unchanged from the May 31, 2021 study. Pleura: There is a moderate, persistent low-density right pleural effusion. There is a trace left pleural effusion which is diminished in size when compared with the study dated May 31, 2021. Heart: Heart size is normal. No pericardial effusion. Thoracic Vessels: The aorta and pulmonary arteries demonstrate normal size. Mediastinum and Elaine: No enlarged lymph nodes. Esophagus: The esophagus is patulous and filled with contrast. There is a large hiatal hernia filled with oral contrast and gas. ABDOMEN: Liver: There are multiple heterogeneous, hypodense hepatic lesions throughout the liver which have increased in size when compared with the prior study dated May 31, 2021. For example, the hypodense lesion which encompasses the left hepatic lobe previously measured 9.6 x 4.8 cm in the axial plane and now measures 12.6 x 5.7 cm in the same plane. No intrahepatic biliary ductal dilatation. Gallbladder: A gallstone is present within the gallbladder fundus. No gallbladder wall thickening or pericholecystic fluid. Biliary ducts: Unremarkable. Pancreas: Unremarkable. Spleen: Unremarkable. Adrenal Glands: Unremarkable. Kidneys and Ureters: Unremarkable. Stomach and Bowel: Stomach, small bowel loops, and colon are unremarkable. Peritoneum: No abnormal intraperitoneal fluid. No free air. Ventral Wall: No hernia. Abdominal Nodes: No retroperitoneal or mesenteric adenopathy by size criteria. Vessels: Aorta and inferior vena cava are normal in size. PELVIS: Pelvic Organs: Unremarkable. Bladder: Unremarkable. Pelvic Nodes: No enlarged lymph nodes. Miscellaneous: No inguinal hernias are seen. Bones: Unremarkable. IMPRESSION: 1. Persistent right pleural effusion, apical scarring, and bilateral airspace consolidation. 2. Stable pulmonary nodules. No new pulmonary nodules. 3. Increased size of the hepatic metastases consistent with progression of disease. Dictated by: Rachel Bernal M.D. on 09/04/2021 at 14:12 Approved by: Rachel Bernal M.D. on 09/04/2021 at 15:14
== END ==
PROVIDERS: PCP Internal Medicine; Referring Provider Internal Medicine Medical Oncology; Visit Provider Internal Medicine Medical Oncology
DX: C55 Malignant neoplasm of uterus, part unspecified (principal); C78.7 Secondary malignant neoplasm of liver and intrahepatic bile duct; J92.9 Pleural plaque without asbestos; J90 Pleural effusion, not elsewhere classified; D25.9 Leiomyoma of uterus, unspecified; R91.8 Other nonspecific abnormal finding of lung field
CPT/HCPCS: 71260; 74177; Q9967

== ENCOUNTER 2021-09-25 00:46 | Inpatient (IN) | payer OTHER, MEDICAID, SELFPAY ==
[2021-09-16 14:08] VITALS: BMI 24.2
[2021-09-25] VITALS (16 sets, daily range): BP systolic 120–165; BP diastolic 63–92; PULSE 73–102; RESP 9–22; TEMP 35.7–36.4; O2SAT 93–99; BMI 21.1
--- NOTE | 2021-09-25 00:53 | ED.SOB ---
HPI - SOB/Dyspnea General Chief Complaint: Weakness Stated Complaint: hard time breathing Time Seen by Provider: 09/25/21 00:53 Source: patient, family, RN notes reviewed and old records reviewed Mode of arrival: Wheelchair Limitations: no limitations History of Present Illness HPI Narrative: This is a 76-year-old female who arrives via private auto after having a lift assist by EMS. He EMS contacted us as they wish to transfer the patient but family refused. Patient is short of breath. She is able to give minimal history but has had nausea and vomiting for 3 days. She is quite pale and she states this is atypical. She states she has had blood transfusions and is treated for cancer. Most recently she had a transfusion a couple weeks ago according to patient appears patient was seen on August 30 for her anemia had 1 unit PRBCs ordered. Denies any black or bloody stools. She denies prior GI bleeds. Denies any fevers or chills. also has a history of pleural effusion, pneumothorax, leiomyosarcoma and radiation pneumonitis. Related Data Home Medications Medication Instructions Recorded Confirmed metoclopramide HCl 5 mg tablet 5 mg PO Q6HR PRN 03/01/21 07/26/21 sertraline 50 mg tablet 100 mg PO BEDTIME 03/04/21 07/26/21 pantoprazole 40 mg tablet,delayed 40 mg PO DAILY 03/14/21 07/26/21 release tolterodine 4 mg capsule,extended 4 mg PO DAILY 07/26/21 07/26/21 release 24 hr Previous Rx's Medication Instructions Recorded dextromethorphan-guaifenesin 5 10 ml PO Q4H PRN #120 ml 05/12/21 mg-100 mg/5 mL oral liquid (Robitussin Cough-Chest Congestion DM) pazopanib 200 mg tablet (Votrient) 800 mg PO 0700 #120 tab 05/24/21 Allergies Allergy/AdvReac Type Severity Reaction Status Date / Time Pork/Porcine Containing Allergy Intermediate SWELLING, Verified 03/14/21 17:16 Products Vomiting Review of Systems Review of Systems ROS Unobtainable: Unobtainable due to medical condition Patient History Medical History Acute bilateral low back pain with bilateral sciatica Arthritis Bleeding ulcer (2018) GERD (gastroesophageal reflux disease) History of frequent headaches History of transfusion (01/16/14) History of transfusion of packed red blood cells (01/16/14) HTN (hypertension) Hx of radiation therapy Left rib fracture (09/2017) Metastasizing leiomyoma of uterus Port-A-Cath in place Wears dentures Wears glasses Surgical History History of colonoscopy with polypectomy (03/22/14) History of esophagogastroduodenoscopy (EGD) (05/22/18) History of esophagogastroduodenoscopy (EGD) (03/22/14) History of lung biopsy (06/2014) History of total hysterectomy with bilateral salpingo-oophorectomy (BSO) (01/2014) Hx of bilateral cataract extraction (02/15/15) Hx of dilation and curettage (01/16/14) Hx of shoulder surgery (2018) Status post dilation and curettage Social History household members: children Smoking Status: Unknown if ever smoked alcohol intake: never Smoking Status: Unknown if ever smoked alcohol intake frequency: holidays/special occasions only Substance Use Type: does not use Exam Narrative Exam Narrative: GEN: Thin cachectic elderly female, alert and oriented, patient appears to be in moderate to severe distress. Patient is pale. HEENT: Atraumatic, pupils are equal round reactive to light, extraocular movements are intact, nares are clear, TMs are clear with no fluid, there is conjunctival pallor. Throat is clear without any exudates, erythema, tonsillar enlargement or uvular deviation HEART: Regular rate and rhythm without murmur, clicks, rubs. Pulses are equal in upper and lower extremities LUNGS:Lungs clear to auscultation, no wheezes, rales, crackles, chest moves symmetrically, no tachypnea accessory muscle use. ABD:bowel sounds normal, nondistended, soft, non-tender, no guarding, rebound, rigidity, no masses noted, no hepatosplenomegaly, patient has brown emesis from her mouth. A digital rectal exam stool occult is positive. Patient does have breakdown with erythema over large portion of her sacrum with a 2.5 cm area of breakdown through the skin. :No CVA tenderness MSCL: Non-tender, normal range of motion. Patient is significantly weak and has to be lifted by staff to the bed. NEURO:CN 2-12 intact, sensation normal SKIN: Pallor, no petechia, no ecchymosis, no rash or skin changes. Initial Vital Signs Initial Vital Signs: Vital Signs Pulse Rate 102 H 09/25/21 01:03 Respiratory Rate 22 09/25/21 01:03 Blood Pressure 165/92 H 09/25/21 01:03 Pulse Oximetry 96 09/25/21 01:03 Course Orders Ordered: ED Orders 09/25/21 00:59 XR chest 1V Stat EKG-12 Lead Stat 09/25/21 01:10 BNP [NT-proBNP (BNP-Adult 18+)] Stat Blood Culture Stat Complete Blood Count AUTO DIFF Stat Comprehensive Metabolic Panel Stat Lactate (Lactic Acid) Stat Lipase Stat Packed Cells Stat Partial Thromboplastin Time Stat Procalcitonin Stat Prothrombin Time INR Stat Troponin I Stat Type and Screen Stat 09/25/21 01:19 COVID19 -Nasal swab/Pre-Proc Stat 09/25/21 01:31 CT chest abd pel w con Stat 09/25/21 01:54 Consult to QUALITY CONTROL TESTER - Bear Keeper Stat 09/25/21 02:04 UA Complete [Urinalysis and Microscopic] Stat 09/25/21 03:15 Hemoglobin and Hematocrit Stat TSH w/ Reflex to FT4 Stat 09/25/21 03:35 Urine Culture Stat Lactated Ringer's (Lactated Ringers) 1,782 mls @ 594 mls/hr 30 ml/kg infuse over 3 hr (1782 ml) IV NOW ONE Stop: 09/25/21 05:04 Last Admin: 09/25/21 02:16 Dose: 594 mls/hr Documented by: CTRKENDY Discontinued Medications Sodium Chloride (Normal Saline 0.9%) 1,000 mls @ 1,000 mls/hr IV BOLUS ONE Stop: 09/25/21 01:57 Last Admin: 09/25/21 01:11 Dose: 1,000 mls/hr Documented by: CTRKENDY Piperacillin Sod/Tazobactam (Sod 4.5 gm/ Sodium Chloride) 100 mls @ 200 mls/hr IV NOW ONE Stop: 09/25/21 02:06 Last Admin: 09/25/21 02:16 Dose: 200 mls/hr Documented by: MARIANN Levofloxacin (Levaquin) 750 mg in 150 mls @ 100 mls/hr IV NOW ONE Stop: 09/25/21 03:36 Last Admin: 09/25/21 03:31 Dose: 100 mls/hr Documented by: Ondansetron HCl (Ondansetron 4 Mg/2 Ml Inj) 4 mg IV NOW ONE Stop: 09/25/21 00:59 Last Admin: 09/25/21 01:12 Dose: 4 mg Documented by: MARIANN Pantoprazole Sodium (Pantoprazole 40 Mg Vial) 80 mg IV NOW ONE Stop: 09/25/21 00:59 Last Admin: 09/25/21 01:11 Dose: 80 mg Documented by: MARIANN Reevaluation(s) Reevaluation #1: Patient temperature improving. CXR shows lung mass =/- infection and with vomiting CT chest/abd/pelvis ordered. Reviewed prelim findings with son at bedside. He states patient was walking some at [facility] but just collapsed once she got home and couldn't do anything for three days. Patient has been bed bound since then. He notes worsening shortness of breath today, gurgling and vomiting that worsened today. Time: 02:08 Reevaluation #2: Patient and son at bedside reviewed findings from today. Current plan for admission and treatment. Time: 04:00 Consultations Consultation #1: AMIRA Singleton, hospitalist accepts. CT is still pending and repeating labs are being drawn. Time: 03:21 Vital Signs Vital signs: Vital Signs - 8 hr 09/25/21 01:03 09/25/21 01:53 09/25/21 02:01 Temperature 97.2 F L 97.2 F L Pulse Rate 102 H 91 H Respiratory Rate 22 15 Blood Pressure 165/92 H Pulse Oximetry 96 99 09/25/21 02:04 09/25/21 02:10 09/25/21 02:30 Temperature 97.2 F L 97.0 F L 96.6 F L Pulse Rate 84 83 78 Respiratory Rate 18 18 10 L Blood Pressure 134/72 133/71 141/65 H Pulse Oximetry 95 95 96 09/25/21 03:00 09/25/21 03:30 Temperature 96.4 F L 96.3 F L Pulse Rate 74 73 Respiratory Rate 13 9 L Blood Pressure 120/63 129/72 Pulse Oximetry 96 94 MDM - SOB/Dyspnea Lab Data Result diagrams: 09/25/21 03:15 09/25/21 01:10 Labs: Lab Results 09/25/21 09/25/21 09/25/21 Range/Units 01:10 01:10 01:10 WBC 16.9 H (4.5-11.0) X10^3/uL RBC 4.68 (4.0-5.2) X10^6/uL Hgb 13.7 (12.0-16.0) g/dL Hct 42.8 (36-46) % MCV 91.4 (80-100) fL MCH 29.2 (26-34) PG MCHC 32.0 (30-36) % RDW 17.2 H (11.6-14.8) % Plt Count 521 H (150-400) X10^3/uL Neut % (Auto) Not Reportable Lymph % (Auto) Not Reportable [place] % (Auto) Not Reportable Eos % (Auto) Not Reportable Baso % (Auto) Not Reportable Lymph # (Auto) Not Reportable [place] # (Auto) Not Reportable Baso # (Auto) Not Reportable PT (10.1-12.7) SECONDS INR (0.9-1.3) APTT (26.4-36.2) SECONDS Sodium 127 L (137-145) mmol/L Potassium 5.2 H (3.4-5.1) mmol/L Chloride 94 L (98-107) mmol/L Carbon Dioxide 20 L (22-32) mmol/L BUN 38 H (7-17) mg/dL Creatinine 0.92 (0.52-1.04) mg/dL Estimated GFR 59.5 L (>60) mL/min BUN/Creatinine Ratio 41.3 H (6-22) Glucose 135 H (80-110) mg/dL Lactate (0.7-2.1) mmol/L Calcium 9.8 (8.4-10.2) mg/dL Total Bilirubin 1.0 (0.2-1.3) mg/dL AST 182 H (14-36) IU/L ALT 41 H (<35) IU/L Alkaline Phosphatase 208 H (38-126) U/L Troponin I (0.01-0.034) ng/mL NT-Pro-B Natriuret Pep (<450) pg/mL Total Protein 8.0 (6.3-8.2) g/dL Albumin 3.5 (3.5-5.0) g/dL Globulin 4.5 H (1.7-4.1) g/dL Albumin/Globulin Ratio 0.8 L (1.0-2.8) Lipase 96 (23-300) U/L Procalcitonin (<0.5) ng/mL Urine Color Urine Appearance Urine pH (4.5-8.0) Ur Specific [place] (1.000-1.035) Urine Protein (Negative) Urine Glucose (UA) (Negative) g/dL Urine Ketones (NEGATIVE) Urine Occult Blood (Negative) Urine Nitrate (Negative) Urine Bilirubin (NEGATIVE) Urine Urobilinogen (0.2) E.U./dL Ur Leukocyte Esterase (NEGATIVE) Urine RBC (0-5/HPF) Urine WBC (0-5/HPF) Urine Bacteria (None) Hyaline Casts (None) Ur Culture Indicated? SARS-CoV-2 (PCR) (Negative) Blood Type A Negative Antibody Screen Negative Crossmatch See Detail 09/25/21 09/25/21 09/25/21 Range/Units 01:10 01:10 01:10 WBC (4.5-11.0) X10^3/uL RBC (4.0-5.2) X10^6/uL Hgb (12.0-16.0) g/dL Hct (36-46) % MCV (80-100) fL MCH (26-34) PG MCHC (30-36) % RDW (11.6-14.8) % Plt Count (150-400) X10^3/uL Neut % (Auto) Lymph % (Auto) [place] % (Auto) Eos % (Auto) Baso % (Auto) Lymph # (Auto) [place] # (Auto) Baso # (Auto) PT 12.6 (10.1-12.7) SECONDS INR 1.1 (0.9-1.3) APTT 35 (26.4-36.2) SECONDS Sodium (137-145) mmol/L Potassium (3.4-5.1) mmol/L Chloride (98-107) mmol/L Carbon Dioxide (22-32) mmol/L BUN (7-17) mg/dL Creatinine (0.52-1.04) mg/dL Estimated GFR (>60) mL/min BUN/Creatinine Ratio (6-22) Glucose (80-110) mg/dL Lactate (0.7-2.1) mmol/L Calcium (8.4-10.2) mg/dL Total Bilirubin (0.2-1.3) mg/dL AST (14-36) IU/L ALT (<35) IU/L Alkaline Phosphatase (38-126) U/L Troponin I < 0.012 (0.01-0.034) ng/mL NT-Pro-B Natriuret Pep 1050 H (<450) pg/mL Total Protein (6.3-8.2) g/dL Albumin (3.5-5.0) g/dL Globulin (1.7-4.1) g/dL Albumin/Globulin Ratio (1.0-2.8) Lipase (23-300) U/L Procalcitonin (<0.5) ng/mL Urine Color Urine Appearance Urine pH (4.5-8.0) Ur Specific [place] (1.000-1.035) Urine Protein (Negative) Urine Glucose (UA) (Negative) g/dL Urine Ketones (NEGATIVE) Urine Occult Blood (Negative) Urine Nitrate (Negative) Urine Bilirubin (NEGATIVE) Urine Urobilinogen (0.2) E.U./dL Ur Leukocyte Esterase (NEGATIVE) Urine RBC (0-5/HPF) Urine WBC (0-5/HPF) Urine Bacteria (None) Hyaline Casts (None) Ur Culture Indicated? SARS-CoV-2 (PCR) (Negative) Blood Type Antibody Screen Crossmatch 09/25/21 09/25/21 09/25/21 Range/Units 01:10 01:10 01:19 WBC (4.5-11.0) X10^3/uL RBC (4.0-5.2) X10^6/uL Hgb (12.0-16.0) g/dL Hct (36-46) % MCV (80-100) fL MCH (26-34) PG MCHC (30-36) % RDW (11.6-14.8) % Plt Count (150-400) X10^3/uL Neut % (Auto) Lymph % (Auto) [place] % (Auto) Eos % (Auto) Baso % (Auto) Lymph # (Auto) [place] # (Auto) Baso # (Auto) PT (10.1-12.7) SECONDS INR (0.9-1.3) APTT (26.4-36.2) SECONDS Sodium (137-145) mmol/L Potassium (3.4-5.1) mmol/L Chloride (98-107) mmol/L Carbon Dioxide (22-32) mmol/L BUN (7-17) mg/dL Creatinine (0.52-1.04) mg/dL Estimated GFR (>60) mL/min BUN/Creatinine Ratio (6-22) Glucose (80-110) mg/dL Lactate 5.2 H* (0.7-2.1) mmol/L Calcium (8.4-10.2) mg/dL Total Bilirubin (0.2-1.3) mg/dL AST (14-36) IU/L ALT (<35) IU/L Alkaline Phosphatase (38-126) U/L Troponin I (0.01-0.034) ng/mL NT-Pro-B Natriuret Pep (<450) pg/mL Total Protein (6.3-8.2) g/dL Albumin (3.5-5.0) g/dL Globulin (1.7-4.1) g/dL Albumin/Globulin Ratio (1.0-2.8) Lipase (23-300) U/L Procalcitonin 1.16 H (<0.5) ng/mL Urine Color Urine Appearance Urine pH (4.5-8.0) Ur Specific [place] (1.000-1.035) Urine Protein (Negative) Urine Glucose (UA) (Negative) g/dL Urine Ketones (NEGATIVE) Urine Occult Blood (Negative) Urine Nitrate (Negative) Urine Bilirubin (NEGATIVE) Urine Urobilinogen (0.2) E.U./dL Ur Leukocyte Esterase (NEGATIVE) Urine RBC (0-5/HPF) Urine WBC (0-5/HPF) Urine Bacteria (None) Hyaline Casts (None) Ur Culture Indicated? SARS-CoV-2 (PCR) Negative (Negative) Blood Type Antibody Screen Crossmatch 09/25/21 09/25/21 09/25/21 Range/Units 03:15 03:15 03:35 WBC (4.5-11.0) X10^3/uL RBC (4.0-5.2) X10^6/uL Hgb 9.9 L (12.0-16.0) g/dL Hct 31.0 L (36-46) % MCV (80-100) fL MCH (26-34) PG MCHC (30-36) % RDW (11.6-14.8) % Plt Count (150-400) X10^3/uL Neut % (Auto) Lymph % (Auto) [place] % (Auto) Eos % (Auto) Baso % (Auto) Lymph # (Auto) [place] # (Auto) Baso # (Auto) PT (10.1-12.7) SECONDS INR (0.9-1.3) APTT (26.4-36.2) SECONDS Sodium (137-145) mmol/L Potassium (3.4-5.1) mmol/L Chloride (98-107) mmol/L Carbon Dioxide (22-32) mmol/L BUN (7-17) mg/dL Creatinine (0.52-1.04) mg/dL Estimated GFR (>60) mL/min BUN/Creatinine Ratio (6-22) Glucose (80-110) mg/dL Lactate 4.0 H (0.7-2.1) mmol/L Calcium (8.4-10.2) mg/dL Total Bilirubin (0.2-1.3) mg/dL AST (14-36) IU/L ALT (<35) IU/L Alkaline Phosphatase (38-126) U/L Troponin I (0.01-0.034) ng/mL NT-Pro-B Natriuret Pep (<450) pg/mL Total Protein (6.3-8.2) g/dL Albumin (3.5-5.0) g/dL Globulin (1.7-4.1) g/dL Albumin/Globulin Ratio (1.0-2.8) Lipase (23-300) U/L Procalcitonin (<0.5) ng/mL Urine Color Yellow Urine Appearance Sl cloudy Urine pH 5.0 (4.5-8.0) Ur Specific [place] 1.010 (1.000-1.035) Urine Protein 1+ H (Negative) Urine Glucose (UA) Negative (Negative) g/dL Urine Ketones Negative (NEGATIVE) Urine Occult Blood 1+ H (Negative) Urine Nitrate Positive H (Negative) Urine Bilirubin Negative (NEGATIVE) Urine Urobilinogen 0.2 (0.2) E.U./dL Ur Leukocyte Esterase 1+ H (NEGATIVE) Urine RBC 0-1/hpf (0-5/HPF) Urine WBC 10-30/hpf H (0-5/HPF) Urine Bacteria Many (>30) H (None) Hyaline Casts 1-5/lpf (None) Ur Culture Indicated? Specimen cultured SARS-CoV-2 (PCR) (Negative) Blood Type Antibody Screen Crossmatch Imaging Data Chest x-ray: Radiologist's Impression: [address] [address] XRay Report Signed Patient: Nessa Nino MR#: [id number] : 1945 Acct:[id number] Age/Sex: 76 / F Date of Service: 09/25/21 Loc: ED Accession Number: [id number] ?? Procedure: XR chest 1V Ordering Provider: Rossi Wallace D.O. PROCEDURE:? XR CHEST 1V ? INDICATIONS:? sob/n/v ? TECHNIQUE:? One view of the chest was acquired.? ? COMPARISON:? [facility], , XR CHEST 1V, 05/04/2021, 15:24.? [facility], , XR CHEST 1V, 05/11/2021, 10:45. ? FINDINGS:? ? Surgical changes and devices:? None.? ? Lungs and pleura:? Masslike opacities in the lungs bilaterally not significantly changed compared to May 11, 2021. Small left-sided pleural fluid collection.? No pneumothorax.? ? Mediastinum:? Mediastinal contours appear normal.? Heart size is normal.? ? Bones and chest wall:? No suspicious bony lesions.? Overlying soft tissues appear unremarkable.? ? IMPRESSION:? ? 1. Masslike opacity lungs bilaterally may represent recurrent pneumonia or could be related to neoplastic process.? Please correlate with clinical history.? Tammie F2.? Small right-sided pleural effusion.? ? ? Dictated by: Amy Slaughter MD, PhD on 09/25/2021 at 1:32 ? ? Approved by: Amy Slaughter MD, PhD on 09/25/2021 at 1:34?? CT chest/abd/pelvis: Radiologist's Impression: Pulm metastatic disease is similar. B/L pleural effusions, moderate on right, small on left. No pneumothorax. Colitis of ascending colitis. Probable fecal impaction. Progression of hepatic metastatic disease. Moderate hiatal hernia with reflux. ECG Data Attestation: I personally reviewed and interpreted this ECG as follows: Prior ECG tracings: available for review Interpretation: Sinus tachycardia rate of 102 DC 142, QRS is 78 QTC 34[address]. No acute ST elevation depression noted. Patient has prior EKG from 05/09/2021 which appears similar. MDM Narrative Medical decision making narrative: This is a 76-year-old female who comes for shortness of breath and vomiting. Patient was brought by private auto after her family refused EMS. Patient is unable to get car requires significant assistance into a wheelchair and onto the bed. Patient is quite pale with a history of metastatic cancer, prior bilateral pleural effusions and pneumothorax. Imaging does not show pneumothorax today CT of chest abdomen and pelvis was included. With her vomiting no bowel obstruction which was a concern with her history of leiomyosarcoma and multiple metastases. Patient has persistent bilateral effusions, anemia which initial hemoglobin was 13 and seemed inappropriate secondary to last hemoglobin was in the 8 range and patient only had 1 unit of packed red blood cells. This was repeated and seems more appropriate at 9.9. Patient has lactic acidosis mildly improved after 30 cc/kilos bolus, patient started on antibiotics for infection and patient has colitis on CT imaging as well as UTI with nitrates on urinalysis. Patient is also noted to have sacral decubitus. Patient was hypothermic upon arrival it has been improving with Darius Hugger, she had mild tachycardia which is also improved and the 70s, she has not been hypotensive. She initially required 2 L but this may have been secondary to either hypoperfusion or patient was cold and not picking up on the monitor and was weaned down to room air and is 94%. Case was discussed with hospitalist who accepts. She did review patient's pulsed status and she is full code. Critical Care Time Critical Care Time Critical Care Time: Yes Total Critical Care Time: 45 Attestation: The high probability of a clinically significant, sudden or life threatening deterioration of the [cardiac, pulm] system(s) required my full and direct attention, intervention and personal management. The aggregate critical care time was [45] minutes. This time is in addition to time spent performing reported procedures but includes the following: [x] Data Review and interpretation [x] Patient assessment and monitoring of vital signs [x] Documentation [x] Medication orders and management Discharge Plan Departure Patient Disposition: Admitted As Inpatient Clinical Impression: Sepsis secondary to UTI, Colitis, Metastatic cancer, Bilateral pleural effusion, Sacral decubitus ulcer Admit Date/Time: 09/25/21 03:57 Admit Provider: Salina Singleton
--- NOTE | 2021-09-25 00:59 | DI.RAD.S_ITS ---
PROCEDURE: XR CHEST 1V INDICATIONS: sob/n/v TECHNIQUE: One view of the chest was acquired. COMPARISON: [facility], , XR CHEST 1V, 05/04/2021, 15:24. [facility], CR, XR CHEST 1V, 05/11/2021, 10:45. FINDINGS: Surgical changes and devices: None. Lungs and pleura: Masslike opacities in the lungs bilaterally not significantly changed compared to May 11, 2021. Small left-sided pleural fluid collection. No pneumothorax. Mediastinum: Mediastinal contours appear normal. Heart size is normal. Bones and chest wall: No suspicious bony lesions. Overlying soft tissues appear unremarkable. IMPRESSION: 1. Masslike opacity lungs bilaterally may represent recurrent pneumonia or could be related to neoplastic process. Please correlate with clinical history. Tammie F2. Small right-sided pleural effusion. Dictated by: Amy Slaughter MD, PhD on 09/25/2021 at 1:32 Approved by: Amy Slaughter MD, PhD on 09/25/2021 at 1:34
[2021-09-25] MEDS: SODIUM CHLORIDE 0.9% 1,000 ML 1000 ML IV (01:11)
[2021-09-25] MEDS: PANTOPRAZOLE 40 MG VIAL 80 MG IV (01:11)
[2021-09-25] MEDS: ONDANSETRON 4 MG/2 ML INJ IV ×2 (01:12→12:25)
[2021-09-25 01:23] LABS: Add Manual Diff / Slide Review YES; Hematocrit 42.8 % (36-46); Hemoglobin 13.7 g/dL (12.0-16.0); Mean Corpuscular Hemoglobin 29.2 PG (26-34); Mean Corpuscular Volume 91.4 fL (80-100); Platelet Count 521 X10^3/uL (150-400); Red Blood Cell Count 4.68 X10^6/uL (4.0-5.2); Red Cell Distribution Width 17.2 % (11.6-14.8); White Blood Cell Count 16.9 X10^3/uL (4.5-11.0)
[2021-09-25 01:28] LABS: INR 1.1 (0.9-1.3); Prothrombin Time 12.6 SECONDS (10.1-12.7)
[2021-09-25 01:31] LABS: PTT Partial Thromboplastin Tim 35 SECONDS (26.4-36.2)
--- NOTE | 2021-09-25 01:31 | DI.CT.S_ITS ---
PROCEDURE: CT CHEST ABD PEL W CON INDICATIONS: v/d/sob TECHNIQUE: After the administration of intravenous contrast, 5 mm thick sections acquired from the lung apices to the symphysis. 5 mm coronal and sagittal reformats were performed, with additional 7 mm MIP reformats through the lungs. For radiation dose reduction, the following was used: automated exposure control, adjustment of mA and/or kV according to patient size. COMPARISON: , CT, CT CHEST ABD PEL W CON, 09/04/2021, 13:35. FINDINGS: Image quality: Excellent. CHEST: Lungs and pleura: There is moderate right greater than left bilateral pleural effusion with fluid extending to right major and minor fissures. Adjacent compressive atelectasis in posterior aspect of bilateral lung cerda are again seen not significantly changed from prior study. Previously described masslike consolidation in posterior right apex remains unchanged in size and appearance. Patient's known posterior right a pickle nodule measures 6-7 mm in size is unchanged series 3, image 66. Previously described 2.3 x 1.1 cm nodular mass within left lower lobe is also unchanged series 3, image 160. Central and peripheral airways appear patent and normal in caliber. Mediastinum: Heart size is normal. No pericardial effusion. No mediastinal or hilar adenopathy by size criteria. Thoracic aorta and central pulmonary arteries are normal in size. Fluid-filled esophagus is seen with moderate-sized hiatal hernia. No significant esophageal wall thickening. Chest wall: No axillary or supraclavicular adenopathy by size criteria. Thyroid gland is within normal limits. ABDOMEN: Solid organs: Extensive liver metastatic disease is again seen with tumor mass occupying entire left hepatic lobe and inferior portion of right hepatic lobe. Multiple scattered smaller right hepatic lobe lesions or all increased in size compared to prior study. Gallbladder is contracted and contains a calcified stone. Biliary system is non dilated. Pancreas enhances normally. Spleen is normal in size and enhancement. No adrenal nodules. Kidneys demonstrate normal size and enhancement, without hydronephrosis. Peritoneum and bowel: There is no bowel obstruction. Large amount of fecal matter is noted distending rectum measures up to 7.7 cm in diameter. There is suggestion of significant colonic wall thickening particularly involving right colon and proximal transverse colon concerning for colitis. No abscess collection. Small to moderate amount of ascites fluid is seen in abdomen and pelvis. No peritoneal free air. Nodes and vessels: No retroperitoneal or mesenteric adenopathy by size criteria. Aorta and inferior vena cava are normal in size. Moderate atherosclerotic calcifications throughout abdominal aorta is seen. Miscellaneous: No ventral hernias. PELVIS: Genitourinary: Bladder wall thickness is normal. Miscellaneous: No inguinal hernias or adenopathy. Generalized anasarca is seen. Bones: No suspicious bony lesions. No vertebral body compression fractures. Extensive degenerative disc disease throughout thoracic and lumbar spine is seen. Grade 1 anterolisthesis of L5 on S1 is also noted. IMPRESSION: 1. Right worse than left bilateral moderate pleural effusion and appears partially loculated with fluid extending to right major and minor fissures. Adjacent segmental atelectasis in bilateral lung cerda. 2. Patient's known bilateral pulmonary nodules are stable in size. Masslike consolidation versus scarring in posterior right apex is also stable. No new pulmonary nodule is seen. 3. Interval further worsening of liver metastatic disease. 4. Cholelithiasis, no definite CT evidence of acute cholecystitis. 5. Colonic wall thickening suggestive of colitis particularly involving right colon. Suggestion of fecal impaction in the rectum. 6. Moderate hiatal hernia unchanged from prior study. Small to moderate amount of ascites fluid. No gross free air. No significant discrepancies from preliminary reading. Dictated by: Hernan Corona M.D. on 09/25/2021 at 8:34 Approved by: Hernan Corona M.D. on 09/25/2021 at 8:48
[2021-09-25 01:33] LABS: Alanine Aminotransferase 41 IU/L (<35); Albumin 3.5 g/dL (3.5-5.0); Albumin Globulin Ratio 0.8 (1.0-2.8); Alkaline Phosphatase 208 U/L (38-126); BUN Creatinine Ratio 41.3 (6-22); Blood Urea Nitrogen 38 mg/dL (7-17); Calcium 9.8 mg/dL (8.4-10.2); Carbon Dioxide 20 mmol/L (22-32); Chloride 94 mmol/L (98-107); Estimated Glomerular Filt Rate 59.5 mL/min (>60); Globulin 4.5 g/dL (1.7-4.1); Glucose 135 mg/dL (80-110); HEMOLYSIS 53 (0-50); Lipase 96 U/L (23-300); Sodium 127 mmol/L (137-145)
[2021-09-25 01:37] LABS: Aspartate Aminotransferase 182 IU/L (14-36); Potassium 5.2 mmol/L (3.4-5.1)
[2021-09-25 01:38] LABS: COVID19 -Nasal RAPID Negative (Negative)
[2021-09-25 01:45] LABS: Troponin I < 0.012 ng/mL (0.01-0.034)
[2021-09-25 01:59] LABS: Lactate (Lactic Acid) 5.2 mmol/L (0.7-2.1)
[2021-09-25 02:08] LABS: NT-proBNP (BNP-Adult 18+) 1050 pg/mL (<450)
[2021-09-25] MEDS: PIPERACILLIN/TAZO 4.5 GM in SODIUM CHLORIDE 0.9% 100 ML 200 ML IV (02:16)
[2021-09-25] MEDS: LACTATED RINGERS 594 ML IV (02:16)
[2021-09-25 02:32] LABS: Procalcitonin 1.16 ng/mL (<0.5)
[2021-09-25] MEDS: levoFLOXacin 750 MG/150 ML PIGGYBACK 100 MG IV (03:31)
[2021-09-25 03:33] LABS: Hemoglobin 9.9 g/dL (12.0-16.0)
[2021-09-25 03:46] LABS: Bilirubin Urine UA NEGATIVE (NEGATIVE); Color Urine UA YELLOW; Glucose Urine UA NEGATIVE (Negative); Ketones Urine UA NEGATIVE (NEGATIVE); Leukocyte Esterase Urine UA 1+ (NEGATIVE); Nitrite Urine UA POSITIVE (Negative); Occult Blood Urine UA 1+ (Negative); Protein Urine UA 1+ (Negative); Urobilinogen Urine UA 0.2 E.U./dL (0.2)
[2021-09-25 03:50] LABS: Reflexed Lactate in 2 Hours Y
[2021-09-25 03:51] LABS: Appearance Urine UA SL CLOUDY
[2021-09-25 04:00] LABS: Bacteria Urine Many (>30); Culture Indicated Urine Specimen Cultured; Hyaline Casts Urine 1-5/LPF; RBC Urine 0-1/HPF (0-5/HPF); WBC Urine 10-30/HPF (0-5/HPF)
--- NOTE | 2021-09-25 04:03 | P.HP_ITS ---
History of Present Illness History of Present Illness Date Patient Seen: 09/25/21 Time Patient Seen: 04:05 Chief complaint: hard time breathing Narrative: Nessa Nino is a 76-year-old female who arrives via private auto after having a lift assist by EMS.? EMS contacted the ED as they wanted to transfer the patient but family refused.? Per the ED provider, it took 4 people to actually pull the patient out of the son's car because she was so weak. Patient is very lethargic and history is provided by Carrillo , her son and CHIQUI. Patient has been weak, unable to ambulate, short of breath, vomiting brown emesis, and said he heard gurgling from her abdomen.? He states she has not worn dentures since the start of the pandemic, and stated she complained that her mouth hurts. She was unable to give me a history, but told the ED provider she has had nausea and vomiting for 3 days.? She is quite pale and she states this is atypical.? She states she has had blood transfusions and is treated for a leiomyosarcoma and is undergoing active treatment.? Most recently she had a transfusion a couple weeks ago on August 30 for her anemia and received 1 unit PRBCs.? Denies any black or bloody stools though son noted she was vomiting brown emesis.? She denies prior GI bleeds.? Denies any fevers or chills. ? She also has a history of pleural effusion, pneumothorax, leiomyosarcoma and radiation pneumonitis. In the emergency department they did a chest x-ray which indicated ?mass like opacity of the lungs bilaterally concerning for recurrent pneumonia or related to a neoplastic process. Small right-sided pleural effusion. CT of the chest in abdomen ruled out a PE or pneumothorax which the patient has had chronic episodes of this. It also noted that she had a large amount of stool in the rectum causing dilation and perirectal inflammation and indicated possible colitis of the ascending colon. Patient's initial oral temperature was in the low low to mid 90s and rectal temperature indicated that she was 96.3, blood pressure 129/72, heart rate 73, respiratory rate of 9, oxygen saturation 94% on 2 L she weighs 59.4 kg with a BMI of 24.2. She has a elevated white count of 16.9 hemoglobin 9.9 hematocrit 31 which is consistent with prior anemia, platelet count 521, sodium 127, potassium 5.2, chloride 94, bicarb 20,, BUN 38, creatinine 0.92, with an EGFR 59.5, glucose is 135, lactate is 4.0 down from 5.2, AST 182, ALT 41, alk-phos 208, proBNP is 10 50, procalcitonin is 1.16, UA is positive for UTI with presence of nitrates and bacteria, COVID-19 PCR is negative. Patient History Medical History Acute bilateral low back pain with bilateral sciatica Arthritis Bleeding ulcer (2018) GERD (gastroesophageal reflux disease) History of frequent headaches History of transfusion (01/16/14) History of transfusion of packed red blood cells (01/16/14) HTN (hypertension) Hx of radiation therapy Left rib fracture (09/2017) Metastasizing leiomyoma of uterus Port-A-Cath in place Wears dentures Wears glasses Surgical History History of colonoscopy with polypectomy (03/22/14) History of esophagogastroduodenoscopy (EGD) (05/22/18) History of esophagogastroduodenoscopy (EGD) (03/22/14) History of lung biopsy (06/2014) History of total hysterectomy with bilateral salpingo-oophorectomy (BSO) (01/2014) Hx of bilateral cataract extraction (02/15/15) Hx of dilation and curettage (01/16/14) Hx of shoulder surgery (2018) Status post dilation and curettage Family & Social History Family History Mother Ovarian cancer Father Non-Hodgkin lymphoma Grandfather Skin cancer Social History: household members children Safety & Behavioral: Feels Safe in Current Yes Environment Been Physically Hurt or No Threatened By a Person Tobacco & Substance use: Smoking Status Unknown if ever smoked, per Oncology notes patient does not smoke alcohol intake never alcohol intake frequency holiday/special occasion Substance Use Type does not use Meds Home Medications and Allergies Home Medications Medication Instructions Recorded Confirmed Type metoclopramide HCl 5 mg tablet 5 mg PO Q6HR PRN 03/01/21 07/26/21 History sertraline 50 mg tablet 100 mg PO BEDTIME 03/04/21 07/26/21 History pantoprazole 40 mg tablet,delayed 40 mg PO DAILY 03/14/21 07/26/21 History release dextromethorphan-guaifenesin 5 10 ml PO Q4H PRN #120 ml 05/12/21 07/26/21 Rx mg-100 mg/5 mL oral liquid (Robitussin Cough-Chest Congestion DM) pazopanib 200 mg tablet (Votrient) 800 mg PO 0700 #120 tab 05/24/21 07/26/21 Rx tolterodine 4 mg capsule,extended 4 mg PO DAILY 07/26/21 07/26/21 History release 24 hr Allergies Allergy/AdvReac Type Severity Reaction Status Date / Time Pork/Porcine Containing Allergy Intermediate SWELLING, Verified 03/14/21 17:16 Products Vomiting Review of Systems Review of Systems ROS: Yes unobtainable due to mental status Exam Vital Signs (past 8 hours): - 09/25/21 01:03 09/25/21 01:53 09/25/21 02:01 Temperature 97.2 F L 97.2 F L Pulse Rate 102 H 91 H Respiratory Rate 22 15 Blood Pressure 165/92 H Pulse Oximetry 96 99 09/25/21 02:04 09/25/21 02:10 09/25/21 02:30 Temperature 97.2 F L 97.0 F L 96.6 F L Pulse Rate 84 83 78 Respiratory Rate 18 18 10 L Blood Pressure 134/72 133/71 141/65 H Pulse Oximetry 95 95 96 09/25/21 03:00 09/25/21 03:30 Temperature 96.4 F L 96.3 F L Pulse Rate 74 73 Respiratory Rate 13 9 L Blood Pressure 120/63 129/72 Pulse Oximetry 96 94 Oxygen Delivery Method Room Air Oxygen Flow Rate 2 Narrative Exam Narrative: Gen: Alert, lethargic and obtunded appearing 76 y.o. female, with a bear hugger blanket on top of her HEENT: normocephalic, atraumatic, conjunctiva clear, sclera non-icteric, oral mucosa pink and moist Neck: supple, full ROM, no JVD, trachea is midline Resp: Lungs CTA, non-labored breathing CV: RRR, no murmur or rubs Abd: soft, non-tender, hypoactive BTs Skin: very pale, viewed photo of sacral decubitus, appears to be a series of 4- 1 cm necrotic appearing lesions and one 2-3 cm stage 2-3 lesion Neuro: Lethargic and with weakened voice Extremities: not ambulating or moving Psyche: unable to assess Objective Labs Result Diagrams: 09/25/21 03:15 09/25/21 01:10 Labs: Laboratory Results - last 24 hr 09/25/21 09/25/21 09/25/21 01:10 01:10 01:10 WBC 16.9 H RBC 4.68 Hgb 13.7 Hct 42.8 MCV 91.4 MCH 29.2 MCHC 32.0 RDW 17.2 H Plt Count 521 H Neut % (Auto) Not Reportable Lymph % (Auto) Not Reportable [place] % (Auto) Not Reportable Eos % (Auto) Not Reportable Baso % (Auto) Not Reportable Lymph # (Auto) Not Reportable [place] # (Auto) Not Reportable Baso # (Auto) Not Reportable PT INR APTT Sodium 127 L Potassium 5.2 H Chloride 94 L Carbon Dioxide 20 L BUN 38 H Creatinine 0.92 Estimated GFR 59.5 L BUN/Creatinine Ratio 41.3 H Glucose 135 H Lactate Calcium 9.8 Total Bilirubin 1.0 AST 182 H ALT 41 H Alkaline Phosphatase 208 H Troponin I NT-Pro-B Natriuret Pep Total Protein 8.0 Albumin 3.5 Globulin 4.5 H Albumin/Globulin Ratio 0.8 L Lipase 96 Procalcitonin Urine Color Urine Appearance Urine pH Ur Specific [place] Urine Protein Urine Glucose (UA) Urine Ketones Urine Occult Blood Urine Nitrate Urine Bilirubin Urine Urobilinogen Ur Leukocyte Esterase Urine RBC Urine WBC Urine Bacteria Hyaline Casts Ur Culture Indicated? SARS-CoV-2 (PCR) Blood Type A Negative Antibody Screen Negative Crossmatch See Detail 09/25/21 09/25/21 09/25/21 01:10 01:10 01:10 WBC RBC Hgb Hct MCV MCH MCHC RDW Plt Count Neut % (Auto) Lymph % (Auto) [place] % (Auto) Eos % (Auto) Baso % (Auto) Lymph # (Auto) [place] # (Auto) Baso # (Auto) PT 12.6 INR 1.1 APTT 35 Sodium Potassium Chloride Carbon Dioxide BUN Creatinine Estimated GFR BUN/Creatinine Ratio Glucose Lactate Calcium Total Bilirubin AST ALT Alkaline Phosphatase Troponin I < 0.012 NT-Pro-B Natriuret Pep 1050 H Total Protein Albumin Globulin Albumin/Globulin Ratio Lipase Procalcitonin Urine Color Urine Appearance Urine pH Ur Specific [place] Urine Protein Urine Glucose (UA) Urine Ketones Urine Occult Blood Urine Nitrate Urine Bilirubin Urine Urobilinogen Ur Leukocyte Esterase Urine RBC Urine WBC Urine Bacteria Hyaline Casts Ur Culture Indicated? SARS-CoV-2 (PCR) Blood Type Antibody Screen Crossmatch 09/25/21 09/25/21 09/25/21 01:10 01:10 01:19 WBC RBC Hgb Hct MCV MCH MCHC RDW Plt Count Neut % (Auto) Lymph % (Auto) [place] % (Auto) Eos % (Auto) Baso % (Auto) Lymph # (Auto) [place] # (Auto) Baso # (Auto) PT INR APTT Sodium Potassium Chloride Carbon Dioxide BUN Creatinine Estimated GFR BUN/Creatinine Ratio Glucose Lactate 5.2 H* Calcium Total Bilirubin AST ALT Alkaline Phosphatase Troponin I NT-Pro-B Natriuret Pep Total Protein Albumin Globulin Albumin/Globulin Ratio Lipase Procalcitonin 1.16 H Urine Color Urine Appearance Urine pH Ur Specific [place] Urine Protein Urine Glucose (UA) Urine Ketones Urine Occult Blood Urine Nitrate Urine Bilirubin Urine Urobilinogen Ur Leukocyte Esterase Urine RBC Urine WBC Urine Bacteria Hyaline Casts Ur Culture Indicated? SARS-CoV-2 (PCR) Negative Blood Type Antibody Screen Crossmatch 09/25/21 09/25/21 09/25/21 03:15 03:15 03:35 WBC RBC Hgb 9.9 L Hct 31.0 L MCV MCH MCHC RDW Plt Count Neut % (Auto) Lymph % (Auto) [place] % (Auto) Eos % (Auto) Baso % (Auto) Lymph # (Auto) [place] # (Auto) Baso # (Auto) PT INR APTT Sodium Potassium Chloride Carbon Dioxide BUN Creatinine Estimated GFR BUN/Creatinine Ratio Glucose Lactate 4.0 H Calcium Total Bilirubin AST ALT Alkaline Phosphatase Troponin I NT-Pro-B Natriuret Pep Total Protein Albumin Globulin Albumin/Globulin Ratio Lipase Procalcitonin Urine Color Yellow Urine Appearance Sl cloudy Urine pH 5.0 Ur Specific [place] 1.010 Urine Protein 1+ H Urine Glucose (UA) Negative Urine Ketones Negative Urine Occult Blood 1+ H Urine Nitrate Positive H Urine Bilirubin Negative Urine Urobilinogen 0.2 Ur Leukocyte Esterase 1+ H Urine RBC 0-1/hpf Urine WBC 10-30/hpf H Urine Bacteria Many (>30) H Hyaline Casts 1-5/lpf Ur Culture Indicated? Specimen cultured SARS-CoV-2 (PCR) Blood Type Antibody Screen Crossmatch Assessment & Plan Assessment & Plan narrative: Nessa Nino is a 76-year-old female with current diagnosis of Leiomyosarcoma is admitted for severe sepsis likely secondary to UTI. 1. Sepsis, likely secondary to uti * Lactate on admission to the ED was 5.2 and with fluid resuscitation it came down to 4.0 * Unknown if due to active infection or malignancy or both * She will continue to receive IV fluids normal saline at 125 mL/hour * She will receive IV ceftriaxone 1 g daily and received IV Levaquin and IV Zosyn in the ED * Urine cultures are pending 2. Chronic hypoxemia likely due to inactivity * She has had a history of pneumothorax however this is been ruled out. She has a moderate-sized pleural effusion on the right lung and a small 1 on the left * noted in ED to desat to the low 90s, now 94% on room air 3. Elevated lactate, present on admission * on admission was 5.2, now 4.0 * possibly related to hypovolemia, or possibly malignancy * improved with IV fluids and antibiotics 3. Sacral decubitus ulcer, appears to be chronic * Consider surgical consult if worsening 4. Anorexia, failure to thrive, GERD * continue Protonix 5. 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 Anemia, chronic * Her ED admit H&H was initially 13.7 and 42.8 respectively and a repeat was 9.9 and 31 respectively which is more consistent with her post transfusion hemoglobin and hematocrit of April * Currently no need for transfusion, but will transfuse if her hematocrit drops below 8 7. Hypothyroidism, elevated TSH * TSH was 35.5 in April and today it is 16.3. Free T4 is pending. * She is likely to require initiation of thyroid replacement. It appears that her levothyroxine during her April admission was raised to 100 mcg although it is not clear whether she is taking it at this time. * Start levothyroxine 100 mcg p.o. daily 8. Obstipation unknown if chronic or acute * Patient will be put on stool softeners and have an enema if indicated VTE Prophylaxis: Wells risk score 5.5 [X]Enoxaparin 40 mg subQ once daily Bilateral SCDs Patient is admitted to the inpatient service due to the severity of disease, r isks of further disease progression and this stay is expected to exceed 2 midnights. FEN: IV fluids: NS at 100 ml/hour, diet: heart healthy, labs: CBC, C/BMP, liver enzymes, [facility] None Dispo: unknown at this time Code status: Full, patient wishes to be full code despite being informed about the significant morbidity, neurological catastrophe, and likely difficulty of extubation in the event she codes Proxy: Carrillo Nino, son [X] I have utilized all available immediate resources to obtain, update, or review of the patient's current medications COVID-19 COVID-19 status: Negative Result date/Date tested (Pos, Neg/Pending): 09/25/21 Scores Syd' Criteria for PE Clinical signs and symptoms of DVT: Yes PE is #1 Dx or equally likely: No Heart rate > 100: No Immobilization at least 3 days or surg in previous 4 weeks: Yes History of PE or DVT: No Hemoptysis: No Malignancy w/Treatment within 6 months or palliative: Yes Wells' PE Score total: 5.5 Quality VTE Deep Vein Thrombosis/Pulmonary Embolism Present on Admission: No MIPS - Admit I confirm the patient?s Advance Care Plan is present, Code status is documented, Surrogate decision maker is in patient?s record [If Yes, STOP here]: Yes MIPS - DC The patient has current or prior documentation of left ventricular ejection fraction (LVEF) less than 40%, or moderate or severely depressed left ventricular systolic function.: No
[2021-09-25 05:05] LABS: Free T4, Direct Thyroxine 1.05 ng/dL (0.78-2.19)
[2021-09-25 05:10] LABS: Alanine Aminotransferase 36 IU/L (<35); Albumin 2.2 g/dL (3.5-5.0); Albumin Globulin Ratio 0.7 (1.0-2.8); Alkaline Phosphatase 115 U/L (38-126); Aspartate Aminotransferase 170 IU/L (14-36); Bilirubin Total 0.6 mg/dL (0.2-1.3); Bilirubin Unconjugated 0.3 mg/dL (0.0-1.1); HEMOLYSIS < 15 (0-50); Total Protein 5.2 g/dL (6.3-8.2)
[2021-09-25] MEDS: cefTRIAXone 1,000 MG in SODIUM CHLORIDE 0.9% 100 ML 200 ML IV (05:26)
[2021-09-25] MEDS: SODIUM CHLORIDE 0.9% 1,000 ML 100 ML IV ×2 (05:26→17:06)
--- NOTE | 2021-09-25 05:28 | PC.NURSE ---
Addendum entered by Carolyn Verdin R.N. 09/25/21 06:41: Rechecked temp- 96.1 rectal. Original Note: Patient arrived to AC unit at 0415. She is alert and oriented x 4, answering questions appropriately. Patient presents with a stage 2 pressure ulcer to coccyx 3.0 cm x 3.0 cm. Cleansed and applied allevyn drsg,. Also noted 3- 0.5 x 0.5 cm scabbed skin ulcerations to surrounding wound and 2- 0.5 cm x 0.5cm scabbed ulcerations to inner buttocks. NS running at 100/hr, ceftriaxone running at 200/hr. Bear hugger on and warming patient. T 94.3, axillary . Patient oriented to room and shown how to use call light. Bed locked and in low position.
[2021-09-25 06:51] LABS: Neutrophils Absolute Manual 14703 /uL (3000-5900); Plasma Cells 1; Total Cells Counted 100
[2021-09-25 06:52] LABS: Anisocytosis 2+; Nucleated Red Blood Cells 1 #/Diff
[2021-09-25] MEDS: ENOXAPARIN 40 MG/0.4 ML SYRINGE SUBCUT (08:34)
[2021-09-25] MEDS: PANTOPRAZOLE DR 20 MG TABLET PO (08:34)
[2021-09-25] MEDS: LEVOTHYROXINE 100 MCG TABLET PO (08:34)
[2021-09-25] MEDS: polyethylene glycoL 3350 17 GM POWD.PACK PO (11:31)
[2021-09-25] MEDS: BISACODYL 5 MG TABLET PO (11:31)
--- NOTE | 2021-09-25 13:58 | PT.IPTN ---
Addendum entered and electronically signed by Samantha Rudolph, PT 09/25/21 15:08: add to precautions: sacral pressure injury Original Note: Current Diagnoses Sepsis, unspecified organism (09/25/21) Physical Therapy Treatment Note M2 PT-IP Current Condition Start: 09/25/21 12:28 Freq: NEEDED Status: Active Protocol: Document 09/25/21 13:58 AW (Rec: 09/25/21 14:22 AW [id number]) Physical Therapy Current Condition Current Condition Evaluation Date 09/25/21 Treatment Diagnosis sepsis, UTI; metastatic leiomyosarcoma; generalized weakness Onset Date 09/24/21 M3 PT-IP Subjective Start: 09/25/21 12:28 Freq: NEEDED Status: Active Protocol: Document 09/25/21 13:58 AW (Rec: 09/25/21 14:22 AW [id number]) Subjective Physical Therapy Visit Type Type Initial Evaluation Visit Start Time 13:25 Visit Stop Time 13:58 Total Visit Minutes 33 Notes Co-tx with OT due to pt's weakness and severely limited activity tolerance. Physical Therapy Visit Comments Patient Comments Pt is willing to participate with therapies. Patient Goals Pt refuses return to [facility] but states she is open to alternate SNF if needed. Therapy Pain Assessment Pain When Pain Assessed During Mobility Pain Present Pain Present Pain Reported Location back Scale Used not quantified Pain Behaviors Facial Grimacing,Wincing Pain Management Techniques Modification of Treatment,Re- positioning M4 PT-IP Mobility and Gait Start: 09/25/21 12:28 Freq: NEEDED Status: Active Protocol: Document 09/25/21 13:58 AW (Rec: 09/25/21 15:07 AW [id number]) PT-Bed Mobility Assessment Supine to Sit Supine to Sit Maximum Assistance,2 Person Assistance,Head of Bed Elevated Sit to Supine Sit to Supine Maximum Assistance,2 Person Assistance Scooting Scooting to Edge of Bed Dependent Scooting Up and Down in Bed Dependent PT-Transfer Assessment Sit to and From Stand Sit to and from Stand Maximum Assistance,2 Person Assistance,Use of Upper Extremities Equipment Transfer Assistive Device Gait Belt,Front Wheeled Walker Orthotic/Prosthetic Devices or Brace: No Comments Mobility Comments Pt was reclined in bed as PT and OT arrived. BP 138/77 HR 86 SpO2 97%. She initiated BLE movement toward right side of bed but stalled and could not flex her trunk to come up to sitting without assist. PT and OT provided max A x 2 via draw pad for pt to sit up. She was dependent to scoot close enough to the edge to get her feet on the floor. She was unable to support herself initially, requiring max A to maintain seated balance due to strong posterior lean. Seated support faded to mod A and eventually pt was able to maintain midline sitting with severe trunk flexion a few seconds at a time. PT offered FWW in front and pt was able to lift her hands to the handles but continued to require mod assist. PT assisted pt to pull her feet back into position. PT and OT provided max A x 2 as pt attempted to stand. She lifted her pelvis from the bed but was unable to effectively extend her knees and hips. She needed to sit after 5-10 seconds. She requested return to bed, complaining of fatigue . PT and OT assisted pt with sit to supine max A x 2. Dependent for positioning. Left pt with call light and tray table in reach. Gait Assessment Comments Gait Comments Unable at this time. PT-Balance Assessment Sitting Balance and Reactions Static Sitting Balance Ability Poor Dynamic Sitting Balance Ability Poor Standing Balance and Reactions Static Standing Balance Ability Poor Dynamic Standing Balance Ability Poor Device Used FWW M5 PT-IP Objective Assessments Start: 09/25/21 12:28 Freq: NEEDED Status: Active Protocol: Document 09/25/21 13:58 AW (Rec: 09/25/21 15:07 AW [id number]) Orientation Orientation/Cognition Level of Alertness Alert Orientation Name,Month,Year,Place, Situation Language Function Ability No Deficits Noted Comments Pt is alert and oriented but confused. She speaks with soft voice. Gross Range of Motion Lower Extremity ROM Impairments Active dorsiflexion to neutral . Strength Lower Extremity Strength Assessment Bilaterally Impaired Hip 3+/5 Knee 3+/5 Ankle 4/5 Muscle Tone Muscle Tone WNL Yes M6 PT-IP Treatment Start: 09/25/21 12:28 Freq: NEEDED Status: Active Protocol: Document 09/25/21 13:58 AW (Rec: 09/25/21 15:07 AW [id number]) Physical Therapy Treatment Education Education Provided Safety M7 PT-IP Assessment and Plan Start: 09/25/21 12:28 Freq: NEEDED Status: Active Protocol: Document 09/25/21 13:58 AW (Rec: 09/25/21 15:07 AW [id number]) PT Summary Assessment and Plan Potential Rehabilitation Potential Fair Status of Condition at Evaluation Evolving Summary Impairments Pain,ROM,Strength,Balance, Coordination,Cognition,Bed Mobility,Transfers,Gait, Activity Tolerance Assessment Summary Nessa is a 76 yo woman with complex medical history including leiomyosarcoma with liver and lung metastases. She is admitted with diagnosis of sepsis secondary to UTI. She was admitted in April and went to SNF for three months. She has been home for three weeks now. On assessment, she required max assist x 2 for bed mobility and sit to stand. PT will continue to follow as plan and goals of care come into focus. At this time, she will require SNF rehab to improve strength and mobility independence vs transition to long-term care. Goals Bed Mobility Goal Moderate Assistance Transfer Goal Moderate Assistance,Front Wheeled Walker Gait Goal Moderate Assistance,Front Wheel Walker Gait Distance 25 Days to Meet Goals 10 Frequency of Treatment Frequency Of Treatment Once a Day Treatment Plan Physical Therapy Treatment Plan Bed Mobility Training,Transfer Training,Gait Training, Therapeutic Exercise,Balance Retraining,Discharge Planning, Hot or Cold Pack,Neuromuscular Re-ed,Coordination Retraining Other Recommendations and Next Treatment sitting balance, attempts to Focus stand as tolerated Precautions Other Precautions falls Recommendations To Nursing Amount of Assist Needed Mechanical Lift Discharge Recommendations PT Discharge Recommendations SNF Rehab Transportation Needs at Discharge Stretcher/Ambulance
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
[2021-09-25 18:18] LABS: Lactate (Lactic Acid) 2.5 mmol/L (0.7-2.1)
[2021-09-25 18:19] LABS: BUN Creatinine Ratio 40.5 (6-22); Blood Urea Nitrogen 32 mg/dL (7-17); Calcium 8.6 mg/dL (8.4-10.2); Carbon Dioxide 22 mmol/L (22-32); Chloride 100 mmol/L (98-107); Estimated Glomerular Filt Rate > 60.0 mL/min (>60); Glucose 105 mg/dL (80-110); HEMOLYSIS < 15 (0-50); Potassium 4.5 mmol/L (3.4-5.1); Sodium 129 mmol/L (137-145)
[2021-09-25 19:55] LABS: Reflexed Lactate in 2 Hours Y
[2021-09-25 21:00] LABS: Lactate 2HR (Lactic Acid Rflx) 2.4 mmol/L (0.7-2.1)
[2021-09-25] MEDS: SERTRALINE 50 MG TABLET 100 MG PO (21:55)
[2021-09-25] MEDS: NYSTATIN SUSP 500,000 UNIT/5 ML UDC 500000 UNIT PO (21:55)
[2021-09-25] MEDS: SENNOSIDES 8.6 MG TABLET 17.2 MG PO (21:55)
[2021-09-26] MEDS: SODIUM CHLORIDE 0.9% 1,000 ML 100 ML IV ×2 (03:24→14:33)
[2021-09-26] MEDS: cefTRIAXone 1,000 MG in SODIUM CHLORIDE 0.9% 100 ML 200 ML IV (04:06)
[2021-09-26 04:09] VITALS: BP 132/82; PULSE 81; RESP 16; TEMP 35.8; O2SAT 97
[2021-09-26] MEDS: LEVOTHYROXINE 100 MCG TABLET PO (06:36)
[2021-09-26 07:30] VITALS: BP 133/79; PULSE 80; RESP 19; TEMP 36.6; O2SAT 95
--- NOTE | 2021-09-26 07:48 | CM.DPC ---
Addendum entered by Mariam Herrera R.N. 09/26/21 15:43: Patient is active at [facility]. She and son have been given resources by TEO, Tika, per recent notes. Addendum entered by Mariam Herrera R.N. 09/26/21 13:29: Called Shannan at [facility] to get more information on patient. She indicated that patient was at their facility from May 13-09/04. She indicated that patient went there initially on her [employer] until 06-02, then was on Medicaid. She indicated they worked hard to get equipment into the home for patient, but she and son were very difficult to work with. She indicated that they had been working with [employer] to get her a hospital bed at home, which she should have. Shannan indicated, she's not sure that they would be able to take her back, let her know that patient does not wish to go back to their facility. If son arrives today, can ask him if she has hospital bed. Will see if hospitalist discusses code status with patient at this time. If she continues to not eat, or wish to participate with therapy, is questionable if hospice would be appropriate. Can run this by hospitalist as well. Addendum entered by Mariam Herrera R.N. 09/26/21 13:07: Called [facility] and left a message to see if they had received STAN application from April for home caregivers. Patient is weak today, has not been able to work with therapy. Homa from [facility] called back and stated that she had not received referral. Sent referral to her for her to review. [facility] phone number is: [phone]. Original Note: DCP Cont: Noted therapy notes, max assist. Patient had recently been to [facility] in [place] for 3 months, and then, discharged, did not like the care there, and went back home with son. Patient has [employer] Medicare Advantage. Two facilities that are in network are [facility] and [facility] . Having personal assistantNazanin, fax both facilities. P: DCP to continue to follow. Will attempt these facilities, and will also follow up with [facility], for according to notes, since STAN was expidited in April, patient and family were not contacted. Mariam Herrera RN/Surgical Scrub Tech
[2021-09-26 08:47] VITALS: O2SAT 94
[2021-09-26 08:59] LABS: Add Manual Diff / Slide Review NO; Basophils Absolute Auto 0 /uL (0-100); Basophils Percent Auto 0.4 % (0-2); Eosinophils Absolute Auto 0 /uL (0-450); Eosinophils Percent Auto 0.2 % (2-4); Hemoglobin 11.5 g/dL (12.0-16.0); Lymphocytes Absolute Auto 400 /uL (1100-4500); Lymphocytes Percent Auto 3.7 % (25-40); Mean Corpuscular HGB Conc 31.9 % (30-36); Mean Corpuscular Hemoglobin 29.5 PG (26-34); Mean Corpuscular Volume 92.5 fL (80-100); Monocytes Absolute Auto 600 /uL (0-900); Monocytes Percent Auto 5.1 % (3-14); Neutrophils Absolute Auto 10200 /uL (1500-7000); Neutrophils Percent Auto 90.6 % (50-75); Platelet Count 267 X10^3/uL (150-400); Red Blood Cell Count 3.89 X10^6/uL (4.0-5.2); Red Cell Distribution Width 17.5 % (11.6-14.8); White Blood Cell Count 11.2 X10^3/uL (4.5-11.0)
[2021-09-26 09:21] LABS: Lactate (Lactic Acid) 2.1 mmol/L (0.7-2.1)
[2021-09-26 09:27] LABS: Alanine Aminotransferase 32 IU/L (<35); Albumin 2.5 g/dL (3.5-5.0); Albumin Globulin Ratio 0.8 (1.0-2.8); Alkaline Phosphatase 124 U/L (38-126); Aspartate Aminotransferase 127 IU/L (14-36); BUN Creatinine Ratio 38.6 (6-22); Bilirubin Total 0.5 mg/dL (0.2-1.3); Bilirubin Unconjugated 0.3 mg/dL (0.0-1.1); Blood Urea Nitrogen 27 mg/dL (7-17); Calcium 8.4 mg/dL (8.4-10.2); Carbon Dioxide 21 mmol/L (22-32); Chloride 102 mmol/L (98-107); Estimated Glomerular Filt Rate > 60.0 mL/min (>60); Globulin 3.2 g/dL (1.7-4.1); Glucose 71 mg/dL (80-110); HEMOLYSIS 27 (0-50); Magnesium 2.1 mg/dL (1.6-2.3); Potassium 4.7 mmol/L (3.4-5.1); Sodium 131 mmol/L (137-145); Total Protein 5.7 g/dL (6.3-8.2)
[2021-09-26] MEDS: ENOXAPARIN 40 MG/0.4 ML SYRINGE SUBCUT (09:36)
[2021-09-26] MEDS: NYSTATIN SUSP 500,000 UNIT/5 ML UDC 500000 UNIT PO (09:36)
[2021-09-26] MEDS: PANTOPRAZOLE DR 20 MG TABLET PO (09:36)
[2021-09-26] MEDS: METOCLOPRAMIDE HCL 5 MG TABLET PO (09:36)
[2021-09-26] MEDS: polyethylene glycoL 3350 17 GM POWD.PACK PO (09:37)
[2021-09-26] MEDS: BISACODYL 5 MG TABLET PO (09:37)
[2021-09-26 10:52] LABS: Reflexed Lactate in 2 Hours Y
[2021-09-26 11:00] VITALS: BP 139/89; PULSE 81; RESP 20; TEMP 36.1; O2SAT 96
[2021-09-26 11:45] LABS: Lactate 2HR (Lactic Acid Rflx) 2.4 mmol/L (0.7-2.1)
--- NOTE | 2021-09-26 12:15 | OT.IPNOTE ---
Attempted to see pt with [employer] for OT treatment. Pt very nauseous, having emesis and able to notify pt's nurse. Pt not wanting to get up at this time. Pt needing total assist to wash her face at this time. No charge
--- NOTE | 2021-09-26 12:16 | PT-IP ANOTE ---
Attempted to see pt at 12:06, pt unable to participate due to nausea and emesis. RN aware.
[2021-09-26] MEDS: ONDANSETRON 4 MG/2 ML INJ IV (12:34)
--- NOTE | 2021-09-26 13:19 | CM.DPNOTE ---
Faxed snf clinicals per [facility] to [facility] Nazanin Cameron CM Assist.
[2021-09-26 15:00] VITALS: BP 142/91; PULSE 88; RESP 17; TEMP 36.8; O2SAT 94
--- NOTE | 2021-09-26 15:11 | PT-IP ANOTE ---
Per RN, hold PT this PM d/t pt not feeling well and lethargic.
--- NOTE | 2021-09-26 16:43 | DIET.CONS ---
Dietary Consultation Note Admission Date: 09/25/2021 03:57 Assessment: 76y F admitted for weakness and N/V, per report, took 4 people to get pt out of personal vehicle due to weakness. Pt well known to this RD from previous admissions. Pt with leiomyosarcoma with mets to liver and lungs. Per CT report, liver mets increased on scan on 09/04 and 09/25 despite continued oncology tx. Pt edentulous however strongly resistant to altered textures per past hospitalizations. Kitchen sending some of her favorites, chopped chicken c gravy and green beans and will try a burger when less nauseated to try to spur better POs. Pt nausea and weakness factors in poor POs this hospitalization despite kitchen sending up items pt has historically enjoyed. Drank 1 ensure yesterday and has had 2 bites pudding as of 5pm today. Pt with minimal urine production today per TICKET MAKER and refusing PT/OT therapies. Pt previously held dx adult failure to thrive. Per report from son, when pt living in skilled facility, they lost their state food benefits, food insecurity may be factor in malnourished state. Ht: 167.64 cm Wt: 55kg kg BMI: 19.6 (severe for age) UBW: 63-65kg (-15% of UBW, chronic malnutrition) Last BM: 09/25/21 (09/25/21 04:35) MNA: 8 Shiv Score: 12 Diet: 09/25/21 Breakfast Heart Healthy Diet Diet Modifications: Nutrition Percent Meal Consumed 5% 09/26/21 12:37 Percent Meal Consumed 10% 09/26/21 09:19 Labs: RBC 3.89 X10^6/uL (4.0-5.2) L 09/26/21 08:50 Hgb 11.5 g/dL (12.0-16.0) L 09/26/21 08:50 Hct 36.0 % (36-46) 09/26/21 08:50 Creatinine 0.70 mg/dL (0.52-1.04) 09/26/21 08:50 Lactate 2.4 mmol/L (0.7-2.1) H 09/26/21 11:26 NT-Pro-B Natriuret Pep 1050 pg/mL (<450) H 09/25/21 01:10 Nutrition Diagnosis: Severe Chronic Malnutrition r/t eating intolerance and catabolic state aeb pt admitted for N/V, weakness, POs 5-10% of EER today, BMI 19.6 (severe for age), pt 15% UBW, pt weak with adult failure to thrive, imaging showing progression of liver mets. Interventions: 1. Initiating calorie count to assess pts ability to meet nutrition needs with PO intake. 2. Sending known favorite foods to spur PO intake. 3. Recc timing antiemetics around meal time to encourage PO intake. EER: 1925kcals (35kcal/kg), 70-75g PRO (1.3-1.5g/kg) Monitoring/Evaluations: following daily Electronically Signed by: Sofie Liz 09/26/21 16:43 Clinical Dietitian [address] [id number]
--- NOTE | 2021-09-26 19:15 | P.PN_ITS ---
Subjective Subjective Date Patient Seen: 09/26/21 Interval history: 76-year-old female with metastatic leiomyosarcoma, admitted to the hospital for severe sepsis secondary to urinary tract infection. Patient is awake and alert today, has no specific complaints, she is clear she wants to discharge home and is not interested in going to a skilled facility at discharge. Exam Vital Signs (past 8 hours): - 09/26/21 15:00 Temperature 98.2 F Pulse Rate 88 Respiratory Rate 17 Blood Pressure 142/91 H Pulse Oximetry 94 Oxygen Delivery Method Room Air Oxygen Flow Rate 0 Narrative Exam Narrative: Pale ill-appearing female lying in bed in no obvious distress Resp Other: Lungs clear to auscultation Cardio Other: Cardiac exam: Regular rate and rhythm normal S1-S2 GI Other: Abdomen soft nontender nondistended Extrem Other: Extremity with 2+ edema Objective Labs Result Diagrams: 09/26/21 08:50 09/26/21 08:50 Labs: Laboratory Results - last 24 hr 09/25/21 09/26/21 09/26/21 20:30 08:50 08:50 WBC 11.2 H RBC 3.89 L Hgb 11.5 L Hct 36.0 MCV 92.5 MCH 29.5 MCHC 31.9 RDW 17.5 H Plt Count 267 Neut % (Auto) 90.6 H Lymph % (Auto) 3.7 L Gage % (Auto) 5.1 Eos % (Auto) 0.2 L Baso % (Auto) 0.4 Neut # (Auto) 87094 H Lymph # (Auto) 400 L Gage # (Auto) 600 Eos # (Auto) 0 Baso # (Auto) 0 Sodium 131 L Potassium 4.7 Chloride 102 Carbon Dioxide 21 L BUN 27 H Creatinine 0.70 Estimated GFR > 60.0 BUN/Creatinine Ratio 38.6 H Glucose 71 L Lactate 2.4 H Calcium 8.4 Magnesium 2.1 Total Bilirubin 0.5 Conjugated Bilirubin 0.0 Unconjugated Bilirubin 0.3 AST 127 H ALT 32 Alkaline Phosphatase 124 Total Protein 5.7 L Albumin 2.5 L Globulin 3.2 Albumin/Globulin Ratio 0.8 L 09/26/21 09/26/21 08:50 11:26 WBC RBC Hgb Hct MCV MCH MCHC RDW Plt Count Neut % (Auto) Lymph % (Auto) Gage % (Auto) Eos % (Auto) Baso % (Auto) Neut # (Auto) Lymph # (Auto) Gage # (Auto) Eos # (Auto) Baso # (Auto) Sodium Potassium Chloride Carbon Dioxide BUN Creatinine Estimated GFR BUN/Creatinine Ratio Glucose Lactate 2.1 2.4 H Calcium Magnesium Total Bilirubin Conjugated Bilirubin Unconjugated Bilirubin AST ALT Alkaline Phosphatase Total Protein Albumin Globulin Albumin/Globulin Ratio [facility] Medical History Acute bilateral low back pain with bilateral sciatica Arthritis Bleeding ulcer (2017) GERD (gastroesophageal reflux disease) History of frequent headaches History of transfusion (01/16/14) History of transfusion of packed red blood cells (01/16/14) HTN (hypertension) Hx of radiation therapy Left rib fracture (09/2017) Metastasizing leiomyoma of uterus Port-A-Cath in place Wears dentures Wears glasses Surgical History History of colonoscopy with polypectomy (03/22/14) History of esophagogastroduodenoscopy (EGD) (05/22/18) History of esophagogastroduodenoscopy (EGD) (03/22/14) History of lung biopsy (06/2014) History of total hysterectomy with bilateral salpingo-oophorectomy (BSO) (01/2014) Hx of bilateral cataract extraction (02/15/15) Hx of dilation and curettage (01/16/14) Hx of shoulder surgery (2018) Status post dilation and curettage Family History Mother Ovarian cancer Father Non-Hodgkin lymphoma Grandfather Skin cancer Social History household members: children Smoking Status: Unknown if ever smoked alcohol intake: never Assessment & Plan Assessment & Plan narrative: Nessa Nino is a 76-year-old female with current diagnosis of Leiomyosarcom a is admitted for severe sepsis likely secondary to UTI. 1. Sepsis, likely secondary to uti * Lactate on admission to the ED was 5.2 and with fluid resuscitation it came down to 4.0 * Unknown if due to active infection or malignancy or both * She will continue to receive IV fluids normal saline at 125 mL/hour * She will receive IV ceftriaxone 1 g daily and received IV Levaquin and IV Zosyn in the ED * Urine cultures are pending, early result still did not identify an organism * Will continue antibiotics, await final urine culture results 2. Chronic hypoxemia likely due to inactivity * She has had a history of pneumothorax however this is been ruled out.? She has a moderate-sized pleural effusion on the right lung and a small 1 on the left * noted in ED to desat to the low 90s, now 94% on room air 3.? Elevated lactate, present on admission * on admission was 5.2, now 4.0, 2.4 * possibly related to hypovolemia,? or possibly malignancy * improved with IV fluids and antibiotics 3. Sacral decubitus ulcer, appears to be chronic * Consider surgical consult if worsening 4. Anorexia, failure to thrive, GERD * continue Protonix 5. 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 Anemia, chronic * Her ED admit H&H was initially 13.7 and 42.8 respectively and a repeat was 9.9 and 31 respectively which is more consistent with her post transfusion hemoglobin and hematocrit of April * Currently no need for transfusion, but will transfuse if her hematocrit drops below 8 7. Hypothyroidism, elevated TSH * TSH was 35.5 in April and today it is 16.3.? Free T4 is pending. * She is likely to require initiation of thyroid replacement.? It appears that her levothyroxine during her April admission was raised to 100 mcg although it is not clear whether she is taking it at this time. * Start levothyroxine 100 mcg p.o. daily 8. Obstipation unknown if chronic or acute * Patient will be put on stool softeners and have an enema if indicated * 9. Disposition Patient previously at a assisted facility until she returned home, appears home situation may be problematic, will need to consider options when the patient is ready for discharge Time Spent With Patient Critical Care time: I spent a total of [] minutes of critical care time on this patient's care today; this time is exclusive of procedural time. Quality VTE Deep Vein Thrombosis/Pulmonary Embolism Present on Admission: No
[2021-09-26 20:00] VITALS: BP 140/90; PULSE 80; RESP 16; TEMP 36.6; O2SAT 93
[2021-09-26] MEDS: SENNOSIDES 8.6 MG TABLET 17.2 MG PO (20:46)
[2021-09-26] MEDS: SERTRALINE 50 MG TABLET 100 MG PO (20:46)
[2021-09-27] VITALS (8 sets, daily range): BP systolic 125–146; BP diastolic 77–84; PULSE 65–87; RESP 14–20; TEMP 36.1–36.8; O2SAT 93–96; BMI 21.8
[2021-09-27] MEDS: SODIUM CHLORIDE 0.9% 1,000 ML 100 ML IV ×2 (00:06→10:26)
[2021-09-27 05:24] LABS: Add Manual Diff / Slide Review NO; Basophils Absolute Auto 0 /uL (0-100); Basophils Percent Auto 0.2 % (0-2); Eosinophils Absolute Auto 0 /uL (0-450); Eosinophils Percent Auto 0.2 % (2-4); Hematocrit 35.5 % (36-46); Hemoglobin 11.2 g/dL (12.0-16.0); Lymphocytes Absolute Auto 300 /uL (1100-4500); Lymphocytes Percent Auto 3.1 % (25-40); Mean Corpuscular HGB Conc 31.7 % (30-36); Mean Corpuscular Hemoglobin 29.5 PG (26-34); Mean Corpuscular Volume 93.1 fL (80-100); Monocytes Absolute Auto 600 /uL (0-900); Monocytes Percent Auto 5.3 % (3-14); Neutrophils Absolute Auto 10000 /uL (1500-7000); Neutrophils Percent Auto 91.2 % (50-75); Platelet Count 235 X10^3/uL (150-400); Red Blood Cell Count 3.81 X10^6/uL (4.0-5.2); Red Cell Distribution Width 17.5 % (11.6-14.8)
[2021-09-27] MEDS: cefTRIAXone 1,000 MG in SODIUM CHLORIDE 0.9% 100 ML 200 ML IV (05:33)
[2021-09-27 05:40] LABS: Alanine Aminotransferase 27 IU/L (<35); Albumin 2.1 g/dL (3.5-5.0); Albumin Globulin Ratio 0.8 (1.0-2.8); Alkaline Phosphatase 114 U/L (38-126); Aspartate Aminotransferase 112 IU/L (14-36); BUN Creatinine Ratio 37.7 (6-22); Bilirubin Total 0.5 mg/dL (0.2-1.3); Bilirubin Unconjugated 0.3 mg/dL (0.0-1.1); Blood Urea Nitrogen 23 mg/dL (7-17); Calcium 7.9 mg/dL (8.4-10.2); Carbon Dioxide 20 mmol/L (22-32); Chloride 105 mmol/L (98-107); Estimated Glomerular Filt Rate > 60.0 mL/min (>60); Globulin 2.7 g/dL (1.7-4.1); Glucose 72 mg/dL (80-110); HEMOLYSIS 31 (0-50); Potassium 4.9 mmol/L (3.4-5.1); Sodium 131 mmol/L (137-145); Total Protein 4.8 g/dL (6.3-8.2)
[2021-09-27] MEDS: LEVOTHYROXINE 100 MCG TABLET PO (05:44)
[2021-09-27] MEDS: NYSTATIN SUSP 500,000 UNIT/5 ML UDC 500000 UNIT PO ×2 (09:07→20:49)
[2021-09-27] MEDS: OXYBUTYNIN 5 MG ER TAB 10 MG PO (09:07)
[2021-09-27] MEDS: ENOXAPARIN 40 MG/0.4 ML SYRINGE SUBCUT (09:07)
[2021-09-27] MEDS: PANTOPRAZOLE DR 20 MG TABLET PO (09:07)
--- NOTE | 2021-09-27 10:54 | PT.IPTN ---
Current Diagnoses Sepsis, unspecified organism (09/25/21) Physical Therapy Treatment Note M2 PT-IP Current Condition Start: 09/25/21 12:28 Freq: NEEDED Status: Active Protocol: Document 09/27/21 10:52 MA (Rec: 09/27/21 13:02 MA [id number]) Physical Therapy Current Condition Current Condition Evaluation Date 09/25/21 Treatment Diagnosis sepsis, UTI; metastatic leiomyosarcoma; generalized weakness Onset Date 09/24/21 M3 PT-IP Subjective Start: 09/25/21 12:28 Freq: NEEDED Status: Active Protocol: Document 09/27/21 10:52 MA (Rec: 09/27/21 13:02 MA [id number]) Subjective Physical Therapy Visit Type Type Treatment Note Visit Start Time 10:34 Visit Stop Time 10:52 Total Visit Minutes 18 Notes Co-tx with OT due to pt's weakness and severely limited activity tolerance. Number of TIRE CHANGER Visits 1 Physical Therapy Visit Comments Patient Comments Pt is willing to try and sit up. Therapy Pain Assessment Pain When Pain Assessed During Mobility Pain Present Pain Present Pain Reported Location back Scale Used did not rate Pain Behaviors Facial Grimacing,Wincing Pain Management Techniques Modification of Treatment,Re- positioning M4 PT-IP Mobility and Gait Start: 09/25/21 12:28 Freq: NEEDED Status: Active Protocol: Document 09/27/21 10:52 MA (Rec: 09/27/21 13:02 MA [id number]) PT-Bed Mobility Assessment Supine to Sit Supine to Sit Maximum Assistance,2 Person Assistance,Head of Bed Elevated Sit to Supine Sit to Supine Maximum Assistance,2 Person Assistance Scooting Scooting to Edge of Bed Maximum Assistance PT-Transfer Assessment Sit to and From Stand Sit to and from Stand Maximum Assistance,2 Person Assistance,Use of Upper Extremities Equipment Transfer Assistive Device Gait Belt,Front Wheeled Walker Orthotic/Prosthetic Devices or Brace: No Comments Mobility Comments Pt is Max Ax2 for all bed mobility and transfers. Once seated EOB, she is able to sit SBA with occassional Min A and verbal cues to sit upright as she tends to lean L after several minutes. She is able to perform exercises with PT and ADLs with OT, while seated EOB. She performs 2x sit<> stands using gait belt and FWW , Max Ax2 and begins to lean posteriorly after ~30. Gait Assessment Comments Gait Comments Unable at this time. PT-Balance Assessment Sitting Balance and Reactions Static Sitting Balance Ability Poor Dynamic Sitting Balance Ability Poor Standing Balance and Reactions Static Standing Balance Ability Poor Dynamic Standing Balance Ability Poor Device Used FWW M5 PT-IP Objective Assessments Start: 09/25/21 12:28 Freq: NEEDED Status: Active Protocol: Document 09/25/21 13:58 AW (Rec: 09/25/21 15:07 AW [id number]) Orientation Orientation/Cognition Level of Alertness Alert Orientation Name,Month,Year,Place, Situation Language Function Ability No Deficits Noted Comments Pt is alert and oriented but confused. She speaks with soft voice. Gross Range of Motion Lower Extremity ROM Impairments Active dorsiflexion to neutral . Strength Lower Extremity Strength Assessment Bilaterally Impaired Hip 3+/5 Knee 3+/5 Ankle 4/5 Muscle Tone Muscle Tone WNL Yes M6 PT-IP Treatment Start: 09/25/21 12:28 Freq: NEEDED Status: Active Protocol: Document 09/27/21 10:52 MA (Rec: 09/27/21 13:02 MA [id number]) Physical Therapy Treatment Exercises Exercises Ankle Pumps,Seated Knee Flexion/Extension Other Treatments Other Treatment Performed Performed ankle pumps seated EOB with Min A for increasing ankle ROM. Pt was then able to complete LAQ with OT assisting posteriorly with pt' s trunk. M7 PT-IP Assessment and Plan Start: 09/25/21 12:28 Freq: NEEDED Status: Active Protocol: Document 09/27/21 10:52 MA (Rec: 09/27/21 13:02 MA [id number]) PT Summary Assessment and Plan Potential Rehabilitation Potential Fair Status of Condition at Evaluation Evolving Summary Impairments Pain,ROM,Strength,Balance, Coordination,Cognition,Bed Mobility,Transfers,Gait, Activity Tolerance Assessment Summary Nessa is better able to tolerate PT this session but continues to require Max Ax2 for all bed mobility and transfers. She performs two sit<>stands with gait belt and FWW. She can sit EOB, SBA with occassional Min A for lateral lean. Due to increased assistance, pt will require SNF rehab to improve strength and mobility independence vs transition to long-term care. Pt is left supine in bed with OT finishing up with pt. Goals Bed Mobility Goal Moderate Assistance Transfer Goal Moderate Assistance,Front Wheeled Walker Gait Goal Moderate Assistance,Front Wheel Walker Gait Distance 25 Days to Meet Goals 10 Frequency of Treatment Frequency Of Treatment Once a Day Treatment Plan Physical Therapy Treatment Plan Bed Mobility Training,Transfer Training,Gait Training, Therapeutic Exercise,Balance Retraining,Discharge Planning, Hot or Cold Pack,Neuromuscular Re-ed,Coordination Retraining Other Recommendations and Next Treatment Co-treat with OT: sitting Focus balance, exercises EOB and sit <>stands as tolerated Precautions Other Precautions falls, sacral pressure injury Recommendations To Nursing Amount of Assist Needed Mechanical Lift Discharge Recommendations PT Discharge Recommendations SNF Rehab Transportation Needs at Discharge Stretcher/Ambulance
--- NOTE | 2021-09-27 10:55 | OT.IP.TRT ---
Current Diagnoses Sepsis, unspecified organism (09/25/21) Occupational Therapy Treatment Note M2 OT-IP Current Condition Start: 09/25/21 15:09 Freq: Status: Active Protocol: Document 09/25/21 15:09 CGR (Rec: 09/25/21 15:44 CGR [id number]) Occupational Therapy Current Condition Current Condition Evaluation Date 09/25/21 Treatment Diagnosis weakness, UTI, liver disease, R colitis, leiomyosarcoma Diagnosis Onset Date 09/25/21 M3 OT- IP Subjective and Pain Start: 09/25/21 15:09 Freq: Status: Active Protocol: Document 09/27/21 10:59 [facility] (Rec: 09/27/21 11:14 [facility] [id number]) OT- Subjective Occupational Therapy Visit Type Type Treatment Note Visit Start Time 10:34 Visit Stop Time 10:55 Total Visit Minutes 21 Occupational Therapy Visit Comments Patient Comments Pt agreed to get up with SPOUTER/ OT for cotxt as pt needing extensive assist for mobility needs. Patient/Caregiver Goals To go home. OT Pain Assessment Pain When Pain Assessed At Rest Pain Present Pain Present Denied Pain M4 OT- IP ADL's Start: 09/25/21 15:09 Freq: Status: Active Protocol: Document 09/27/21 10:59 [facility] (Rec: 09/27/21 11:14 [facility] [id number]) OT ADL-Grooming General Evaluation Grooming Ability Standby Assistance Areas Needing Assistance Retrieving/Set-up of Grooming Items,Face Washing Comments OT Grooming Comments Pt able to wash her face while seated at the edge of bed with CGA. OT ADL-Oral Care Comments Oral Care Comments not performed M5 OT- IP IADL's Start: 09/25/21 15:09 Freq: Status: Active Protocol: Document 09/25/21 15:09 CGR (Rec: 09/25/21 15:44 CGR [id number]) OT-Instrumental Activities of Daily Living Deficits IADL Deficits Identified Deficits Home Safety Awareness Awareness of Need for Assistance at Home Decreased Awareness Ability to Problem Solve Emergency Unable to Problem Solve Situations Medication Management Medication Management Caregiver Administers Money Management Money Management Caregiver Provides Assistance Meal Preparation Meal Preparation Caregiver Provides Assist Meal Preparation Comments Pt just started with meals on wheels Backup Sawyer Backup Sawyer Caregiver Provides Assist Driving Driving Comments Pt's son does all driving M6 OT- IP Functional Cognition Start: 09/25/21 15:09 Freq: Status: Active Protocol: Document 09/27/21 10:59 [facility] (Rec: 09/27/21 11:14 [facility] [id number]) Cognitive Factors Limiting Selfcare Function Cognitive Ability Level of Alertness Alert Patient Orientation Name,Month,Date,Year,Day of Week,Place,Situation Attention Span Ability Capable of Focused Attention, Capable of Sustained Attention Ability to Follow Commands Able to Follow One Step Commands with Increased Time, Able to Follow One Step Commands with Repetition Cognitive Comments Cognitive Assessment Comments Pt soft spoken but able to answer questions appropriately today. M7 OT- IP Mobility and Balance Start: 09/25/21 15:09 Freq: Status: Active Protocol: Document 09/27/21 10:59 [facility] (Rec: 09/27/21 11:14 [facility] [id number]) OT- Bed Mobility Assessment Supine to Sit Supine to Sit Assist Maximum Assistance,2 Person Assistance Sit to Supine Sit to Supine Assist Maximum Assistance,2 Person Assistance Scooting Scooting to Edge of Bed Maximum Assistance,2 Person Assistance Scooting Up and Down in Bed Maximum Assistance,2 Person Assistance OT-Transfer Assessment Sit to and From Stand Sit to and from Stand Maximum Assistance,2 Person Assistance Technique Transfer Destination Bed Devices Transfer Assistive Devices Gait Belt,Front Wheeled Walker Comments Mobility Comments Pt able to stand x2 with MAX AX 2 to FWW. MAX AX 2 to get form supine to sitting with HOB up. Pt able to initiate to move her legs over but needing assist to complete and use of green sheet to move her hips and sit upright to the edge of the bed. OT- Balance Assessment Sitting Balance and Reactions Static Sitting Balance Ability Fair Dynamic Sitting Balance Ability Poor Comments Other Balance Tests/Deviations/Treatment Pt able to sit at the edge of : the bed with close CBA to RODRIGO for occasional leaning to the left. M8 OT- IP Objective Assessments Start: 09/25/21 15:09 Freq: Status: Active Protocol: Document 09/25/21 15:09 CGR (Rec: 09/25/21 15:44 CGR [id number]) OT Gross Range of Motion Upper Extremity Range of Motion Assessment Within Functional Limits ROM Impairments Pt states she needs sx on her R shld but displays 0-110 ROM OT Strength Comments Strength Comments 4-/5 to arms and hands, shlds not tested OT- Coordination Assessment Upper Extremity Finger to Nose Test Within Functional Limits Finger Tapping Test Within Functional Limits OT-Muscle Tone Assessment Muscle Tone WNL Yes OT Sensation Assessment Edema Edema Absent M9 OT- IP Assessment and Plan Start: 09/25/21 15:09 Freq: Status: Active Protocol: Document 09/27/21 10:59 [facility] (Rec: 09/27/21 11:14 [facility] [id number]) OT Summary Assessment and Plan Potential Rehabilitation Potential Fair Analytic Complexity at Evaluation High Summary OT Impairments Pain,Range of Motion,Strength, Balance,Functional Mobility, Grooming,Dressing,Toileting, Bathing,Toilet Transfers, Shower Transfers,Activity Tolerance Progress Towards Goals Slow Progress due to Medical Issues Assessment Summary Pt able to tolerate standing x2 with MAX X 2 to FWW. Pt having trouble to stand up all the way at this time. Pt feeling better however still does not feel that she is at her baseline level. Pt would benefit from skilled rehab to be able to return to her baseline of her son being able to assist her at home. Goals Self-Feeding Goal Standby Assistance Grooming Goal Standby Assistance Dressing Goal Moderate Assistance Toileting Goal Moderate Assistance Bathing Goal Moderate Assistance Toilet Transfer Goal Minimal Assistance Shower Transfer Goal Moderate Assistance Days to Meet Goals 30 Frequency of Treatment Frequency Of Treatment Once a Day Treatment Plan OT Treatment Plan ADL Training,Functional Cognition Training,Functional Mobility,Patient/Family Education,Discharge Planning Discharge Recommendations OT Discharge Recommendations SNF Rehab Other Discharge Recommendations Pending pt's progress and if pt's son able to provide enough care for pt, possibly 24/ assist and home health. Transportation Needs at Discharge Wheelchair/Cabulance
--- NOTE | 2021-09-27 11:34 | CM.DPC ---
Addendum entered by Mariam Herrera R.N. 09/27/21 13:12: Went ahead and called some facilities in the [place] area, just to see if there are any facilities that may be able to accept her for short term before going home. She did work with O.T. today. [facility], [facility]. In the messages, inquired if any of them are contracted with [employer]. Called [facility], and found out that they are not contracted with [employer]. Original Note: DCP Cont: Homa at [facility] has stated that she can't accept patient. Discussed patient during team rounds, and hospitalist feels that she will need shelter due to being bed bound. Let her know that securing a bed may be challenging, for she wished to go home, and [employer] may not auth her for long, and would need to switch over to Medicaid, and beds are scarce. O.T, and P.T. will work with patient today. Called [facility] Social Worker, and found out that patient does not have STAN Line Up Worker. May need to send another expidited form. Spoke to patient. She is flat, no expression, nods her head with answers. Asked her for permission to contact her son, Carrillo, and she nodded yes. Called patient's son, Carrillo. Discussed patient and her not wanting to go to shelter. Asked him if he is able to care for her at home, he stated, of course, she's my mom. Discussed home health options, son is open to this. Let him know that nursing can come in and check her wounds, as well as therapy, and also a social sciences chair for resources. Son stated, his mom most likely won't want a social sciences chair, someone from your hospital called [facility], and indicated that she wasn't getting the care she needed at home, and [facility] came to his home. Asked him how the meeting went, and he stated, they closed the file. He stated, are you the social sciences chair that called the state. let him know that this manufacturing planner is not familiar with the [facility] referral from the last admission. Son is prepared to care for her at home with home health. He is planning on coming to see his mother today, was having problems with his car. Confirmed with him that patient does have a hospital bed at home, and she is still going to [facility] for her treatments, is having trouble getting her there. Patient should have access to Medicaid transportation. P: DCP to continue to follow, can still attempt more facilities in [facility] as well, and can go ahead and send another expidited STAN form. Mariam Herrera RN/Line Up Worker
--- NOTE | 2021-09-27 14:22 | CM.DPC ---
Addendum entered by Mariam Herrera R.N. 09/27/21 15:28: Faxed referral over to both fax numbers at [facility]. Completed a new Home and Community Referral and faxed form over in order to get expidited STAN caregivers. Placed copy in box to scan. Original Note: DCP Cont: Spoke to Martha at [facility] in [place]. She does have beds available. She indicted that she could do a one time agreement with [employer] as long as it's documented that 3 other facilities have been attempted. She also has Medicaid beds. This [place] life care planner has already contacted [facility], most likely can't take patient back, patient would rather not go there. [facility] has declined, and [facility] has declined. [facility] do not take [employer] Medicare patients. Will fax over face sheet, H&P, today's progress noted, and P.T, and O.T notes from today. Martha will then rview. Have not yet seen son today, but can discuss this plan as an alternative before going home, since she is currently a max assist. P: DCP to continue to follow. Faxing Martha at [facility] referral. Patient may not wish to go, but imperative that a back up plan is secured, should it be too difficult for son to take her home. Patient's first goal is home, but will have to see if son can manage. Mariam Herrera RN/Auricular Acupuncturist
--- NOTE | 2021-09-27 17:51 | P.PN_ITS ---
Subjective Subjective Date Patient Seen: 09/27/21 Interval history: 76-year-old female with a history of metastatic leiomyosarcoma admitted to the hospital with severe sepsis secondary to urinary tract infection. Patient's urine are growing Gram-negative bacteria. Her white count is improved. She is minimally verbal, does not want to participate with PT, she is essentially bedbound. She did eat half of her dinner last evening. Exam Vital Signs (past 8 hours): - 09/27/21 11:00 09/27/21 11:36 09/27/21 15:00 Temperature 96.9 F L 97.4 F L Pulse Rate 86 65 Respiratory Rate 20 19 Blood Pressure 125/77 130/82 Pulse Oximetry 96 93 95 Oxygen Delivery Method Room Air Oxygen Flow Rate 0 Narrative Exam Narrative: Pale ill-appearing female lying in bed Resp Other: Lungs: Decreased breath sounds but clear to auscultation Cardio Other: Cardiac exam: Regular rate and rhythm normal S1-S2 with a 2/6 systolic ejection murmur GI Other: Abdomen obese soft and nontender Objective Labs Result Diagrams: 09/27/21 05:00 09/27/21 05:00 Labs: Laboratory Results - last 24 hr 09/27/21 09/27/21 05:00 05:00 WBC 11.0 RBC 3.81 L Hgb 11.2 L Hct 35.5 L MCV 93.1 MCH 29.5 MCHC 31.7 RDW 17.5 H Plt Count 235 Neut % (Auto) 91.2 H Lymph % (Auto) 3.1 L [place] % (Auto) 5.3 Eos % (Auto) 0.2 L Baso % (Auto) 0.2 Neut # (Auto) 21478 H Lymph # (Auto) 300 L [place] # (Auto) 600 Eos # (Auto) 0 Baso # (Auto) 0 Sodium 131 L Potassium 4.9 Chloride 105 Carbon Dioxide 20 L BUN 23 H Creatinine 0.61 Estimated GFR > 60.0 BUN/Creatinine Ratio 37.7 H Glucose 72 L Calcium 7.9 L Magnesium 2.0 Total Bilirubin 0.5 Conjugated Bilirubin 0.0 Unconjugated Bilirubin 0.3 AST 112 H ALT 27 Alkaline Phosphatase 114 Total Protein 4.8 L Albumin 2.1 L Globulin 2.7 Albumin/Globulin Ratio 0.8 L [facility] Medical History Acute bilateral low back pain with bilateral sciatica Arthritis Bleeding ulcer (2018) GERD (gastroesophageal reflux disease) History of frequent headaches History of transfusion (01/16/14) History of transfusion of packed red blood cells (01/16/14) HTN (hypertension) Hx of radiation therapy Left rib fracture (09/2017) Metastasizing leiomyoma of uterus Port-A-Cath in place Wears dentures Wears glasses Surgical History History of colonoscopy with polypectomy (03/22/14) History of esophagogastroduodenoscopy (EGD) (05/22/18) History of esophagogastroduodenoscopy (EGD) (03/22/14) History of lung biopsy (06/2014) History of total hysterectomy with bilateral salpingo-oophorectomy (BSO) (01/2014) Hx of bilateral cataract extraction (02/15/15) Hx of dilation and curettage (01/16/14) Hx of shoulder surgery (2018) Status post dilation and curettage Family History Mother Ovarian cancer Father Non-Hodgkin lymphoma Grandfather Skin cancer Social History household members: children Smoking Status: Unknown if ever smoked alcohol intake: never Assessment & Plan Assessment & Plan narrative: Nessa Nino is a 76-year-old female with current diagnosis of Leiomyo sarcoma is admitted for severe sepsis likely secondary to UTI. 1. Sepsis, likely secondary to uti * Lactate on admission to the ED was 5.2 and with fluid resuscitation it came down to 4.0 * Unknown if due to active infection or malignancy or both * Will DC IV fluid * Await final urine culture results, currently growing Gram-negative rods, this should be sensitive to ceftriaxone * She will receive IV ceftriaxone 1 g daily and received IV Levaquin and IV Zosyn in the ED * * Will continue antibiotics, await final urine culture results 2. Chronic hypoxemia likely due to inactivity * She has had a history of pneumothorax however this is been ruled out.? She has a moderate-sized pleural effusion on the right lung and a small 1 on the left * noted in ED to desat to the low 90s, now 94% on room air 3.? Elevated lactate, present on admission * on admission was 5.2, now 4.0, 2.4 * possibly related to hypovolemia,? or possibly malignancy * improved with IV fluids and antibiotics 3. Sacral decubitus ulcer, appears to be chronic * Consider surgical consult if worsening4. Anorexia, failure to thrive, GERD * continue Protonix 5. 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 Anemia, chronic * Her ED admit H&H was initially 13.7 and 42.8 respectively and a repeat was 9.9 and 31 respectively which is more consistent with her post transfusion hemoglobin and hematocrit of April * Currently no need for transfusion, but will transfuse if her hematocrit drops below 87. Hypothyroidism, elevated TSH * TSH was 35.5 in April and today it is 16.3.? Free T4 is pending. * She is likely to require initiation of thyroid replacement.? It appears that her levothyroxine during her April admission was raised to 100 mcg although it is not clear whether she is taking it at this time. * Start levothyroxine 100 mcg p.o. daily * Patient likely euthyroid sick, does not need treatment at this time 8. Obstipation unknown if chronic or acute * Patient will be put on stool softeners and have an enema if indicated * 9. Disposition Patient previously at a group home facility until she returned home, appears home situation may be problematic, will need to consider options when the patient is ready for discharge Patient and her son agree that she wants to return home with home health despite the fact that she appears to need extensive assistance. Anticipate discharge home in 1-2 days Time Spent With Patient Critical Care time: I spent a total of [] minutes of critical care time on this patient's care today; this time is exclusive of procedural time. Quality VTE Deep Vein Thrombosis/Pulmonary Embolism Present on Admission: No
[2021-09-27] MEDS: SERTRALINE 50 MG TABLET 100 MG PO (20:49)
[2021-09-27] MEDS: SENNOSIDES 8.6 MG TABLET 17.2 MG PO (20:49)
[2021-09-28] VITALS (9 sets, daily range): BP systolic 126–147; BP diastolic 77–87; PULSE 79–91; RESP 12–20; TEMP 36–37.1; O2SAT 93–96
[2021-09-28] MEDS: cefTRIAXone 1,000 MG in SODIUM CHLORIDE 0.9% 100 ML 200 ML IV (04:15)
[2021-09-28] MEDS: PAZOPANIB 200 MG 800 EACH PO (06:03)
[2021-09-28 06:22] LABS: Add Manual Diff / Slide Review NO; Basophils Absolute Auto 0 /uL (0-100); Basophils Percent Auto 0.2 % (0-2); Eosinophils Absolute Auto 100 /uL (0-450); Eosinophils Percent Auto 0.6 % (2-4); Hematocrit 34.8 % (36-46); Lymphocytes Absolute Auto 500 /uL (1100-4500); Lymphocytes Percent Auto 4.7 % (25-40); Mean Corpuscular HGB Conc 31.4 % (30-36); Mean Corpuscular Hemoglobin 29.5 PG (26-34); Mean Corpuscular Volume 93.9 fL (80-100); Monocytes Absolute Auto 500 /uL (0-900); Neutrophils Absolute Auto 8900 /uL (1500-7000); Neutrophils Percent Auto 89.5 % (50-75); Platelet Count 208 X10^3/uL (150-400); Red Blood Cell Count 3.71 X10^6/uL (4.0-5.2); Red Cell Distribution Width 17.3 % (11.6-14.8)
[2021-09-28 06:27] LABS: BUN Creatinine Ratio 32.3 (6-22); Blood Urea Nitrogen 20 mg/dL (7-17); Calcium 8.4 mg/dL (8.4-10.2); Carbon Dioxide 22 mmol/L (22-32); Chloride 106 mmol/L (98-107); Estimated Glomerular Filt Rate > 60.0 mL/min (>60); Glucose 106 mg/dL (80-110); HEMOLYSIS 18 (0-50); Magnesium 2.1 mg/dL (1.6-2.3); Potassium 4.5 mmol/L (3.4-5.1); Sodium 131 mmol/L (137-145)
[2021-09-28 06:41] LABS: Procalcitonin 1.44 ng/mL (<0.5)
[2021-09-28] MEDS: NYSTATIN SUSP 500,000 UNIT/5 ML UDC 500000 UNIT PO ×2 (08:42→21:09)
[2021-09-28] MEDS: ENOXAPARIN 40 MG/0.4 ML SYRINGE SUBCUT (08:42)
[2021-09-28] MEDS: OXYBUTYNIN 5 MG ER TAB 10 MG PO (08:43)
[2021-09-28] MEDS: PANTOPRAZOLE DR 20 MG TABLET PO (08:43)
--- NOTE | 2021-09-28 09:06 | CM.DPC ---
DCP Cont: Ventura from [facility] called back since she received [facility] intake form. Her phone number is: [phone]. Updated her on patient. She confirmed that patient is in her system, qualifies for Medicaid, should be no cost for home caregivers, but first step is consent and assessment. Let her know that primary contact is son, Carrillo. Let her know that this case packer will update her if she goes home today, versus going to skilled. Spoke to Martha at [facility] who wanted to know if patient is ready today. Let her know that patient is most likely ready, but will also have to consent to go if she can accept. Reminded Martha that patient is [employer], and auth would also need to be obtained, and she is also Medicaid. Martha stated she will have an update at approximately 10:30, will call her back then. P: DCP will follow up with Martha, and will let son know if they can accept, otherwise, plan will be home with son, and [facility] will follow up with home care after they can assess. Mariam Herrera RN/Scrap Shear Operator
--- NOTE | 2021-09-28 10:26 | CM.DPC ---
Addendum entered by Mariam Herrera R.N. 09/28/21 13:00: Called Lani at [facility] to see if she does take [employer]. Let her know that patient lives in [place]. Faxed over face sheet, H&P, and P.T/O.T. notes. Spoke to Gopiradha at [facility], and she also stated, she takes [employer]. She indicated that P.T. may be able to come out this week-end, nursing not until . Faxed her the referral as well. Original Note: DCP Cont: Dr. Galindo indicated that she had spoken to son, Carrillo, yesterday. He is does want her to go home. She indicated that he wants to wait to take her home until Saturday, but can medically justify keeping her another day. Let her know that this planner intern will call son back and let him know that she can either go to [facility], or home. Spoke to son. He is worried that she has to go home today. Let him know that hospitalist is willing to keep her another day, but most likely ready tomorrow. Son stated, I don't know if I can take her tomorrow, I have my appointment at [facility]. Let him know that she most likely will be ready to go tomorrow, and to plan on this. Mentioned alternative of [facility] possibly accepting. He stated, I don't want her to go all the way to [place], and don't want her to go back to [facility]. Let him know that there is no other alternative, and she most likely will not want to go, and to plan on taking her home tomorrow. He had more medical questions, concerns about nausea, intake, etc. Let him know that this field nurse case manager will have hospitalist call him. Let him know that this case manage can order home health as well, and updated him on [facility] contacting him. Spoke to Dr. Galindo about conversation, and she will call son. Will still plan on discharge home tomorrow as long as patient is medically ready. May have to be later in the day after son's appointments. Mariam Herrera RN/Storm Sash Maker
--- NOTE | 2021-09-28 11:31 | P.PN_ITS ---
Subjective Subjective Date Patient Seen: 09/28/21 Exam Vital Signs (past 8 hours): - 09/28/21 04:35 09/28/21 08:00 09/28/21 10:00 Temperature 97.7 F 96.8 F L Pulse Rate 87 85 Respiratory Rate 12 20 Blood Pressure 126/77 147/87 H Pulse Oximetry 95 93 93 09/28/21 11:03 Temperature 96.9 F L Pulse Rate 86 Respiratory Rate 19 Blood Pressure 140/84 Pulse Oximetry 93 Oxygen Delivery Method Room Air Oxygen Flow Rate 0 Objective Labs Result Diagrams: 09/28/21 06:05 09/28/21 06:05 Labs: Laboratory Results - last 24 hr 09/28/21 09/28/21 09/28/21 06:05 06:05 06:05 WBC 10.0 RBC 3.71 L Hgb 11.0 L Hct 34.8 L MCV 93.9 MCH 29.5 MCHC 31.4 RDW 17.3 H Plt Count 208 Neut % (Auto) 89.5 H Lymph % (Auto) 4.7 L [place] % (Auto) 5.0 Eos % (Auto) 0.6 L Baso % (Auto) 0.2 Neut # (Auto) 8900 H Lymph # (Auto) 500 L [place] # (Auto) 500 Eos # (Auto) 100 Baso # (Auto) 0 Sodium 131 L Potassium 4.5 Chloride 106 Carbon Dioxide 22 BUN 20 H Creatinine 0.62 Estimated GFR > 60.0 BUN/Creatinine Ratio 32.3 H Glucose 106 Calcium 8.4 Magnesium 2.1 Procalcitonin 1.44 H PFSH Medical History Acute bilateral low back pain with bilateral sciatica Arthritis Bleeding ulcer (2017) GERD (gastroesophageal reflux disease) History of frequent headaches History of transfusion (01/16/14) History of transfusion of packed red blood cells (01/16/14) HTN (hypertension) Hx of radiation therapy Left rib fracture (09/2017) Metastasizing leiomyoma of uterus Port-A-Cath in place Wears dentures Wears glasses Surgical History History of colonoscopy with polypectomy (03/22/14) History of esophagogastroduodenoscopy (EGD) (05/22/18) History of esophagogastroduodenoscopy (EGD) (03/22/14) History of lung biopsy (06/2014) History of total hysterectomy with bilateral salpingo-oophorectomy (BSO) (01/2014) Hx of bilateral cataract extraction (02/15/15) Hx of dilation and curettage (01/16/14) Hx of shoulder surgery (2018) Status post dilation and curettage Family History Mother Ovarian cancer Father Non-Hodgkin lymphoma Grandfather Skin cancer Social History household members: children Smoking Status: Unknown if ever smoked alcohol intake: never Assessment & Plan Time Spent With Patient Critical Care time: I spent a total of [] minutes of critical care time on this patient's care today; this time is exclusive of procedural time. Quality VTE Deep Vein Thrombosis/Pulmonary Embolism Present on Admission: No
--- NOTE | 2021-09-28 12:35 | OT.IP.TRT ---
Current Diagnoses Sepsis, unspecified organism (09/25/21) Occupational Therapy Treatment Note M2 OT-IP Current Condition Start: 09/25/21 15:09 Freq: Status: Active Protocol: Document 09/25/21 15:09 CGR (Rec: 09/25/21 15:44 CGR [id number]) Occupational Therapy Current Condition Current Condition Evaluation Date 09/25/21 Treatment Diagnosis weakness, UTI, liver disease, R colitis, leiomyosarcoma Diagnosis Onset Date 09/25/21 M3 OT- IP Subjective and Pain Start: 09/25/21 15:09 Freq: Status: Active Protocol: Document 09/28/21 12:15 [facility] (Rec: 09/28/21 13:01 [facility] [id number]) OT- Subjective Occupational Therapy Visit Type Visit Start Time 12:15 Visit Stop Time 12:35 Total Visit Minutes 20 Occupational Therapy Visit Comments Patient Comments Pt agreeable to get up to the recliner. Patient/Caregiver Goals Pt wanting to go home. OT Pain Assessment Pain When Pain Assessed At Rest Pain Present Pain Present Denied Pain M4 OT- IP ADL's Start: 09/25/21 15:09 Freq: Status: Active Protocol: Document 09/27/21 10:59 [facility] (Rec: 09/27/21 11:14 [facility] [id number]) OT ADL-Grooming General Evaluation Grooming Ability Standby Assistance Areas Needing Assistance Retrieving/Set-up of Grooming Items,Face Washing Comments OT Grooming Comments Pt able to wash her face while seated at the edge of bed with CGA. OT ADL-Oral Care Comments Oral Care Comments not performed M5 OT- IP IADL's Start: 09/25/21 15:09 Freq: Status: Active Protocol: Document 09/25/21 15:09 CGR (Rec: 09/25/21 15:44 CGR [id number]) OT-Instrumental Activities of Daily Living Deficits IADL Deficits Identified Deficits Home Safety Awareness Awareness of Need for Assistance at Home Decreased Awareness Ability to Problem Solve Emergency Unable to Problem Solve Situations Medication Management Medication Management Caregiver Administers Money Management Money Management Caregiver Provides Assistance Meal Preparation Meal Preparation Caregiver Provides Assist Meal Preparation Comments Pt just started with meals on wheels C Python Developer C Python Developer Caregiver Provides Assist Driving Driving Comments Pt's son does all driving M6 OT- IP Functional Cognition Start: 09/25/21 15:09 Freq: Status: Active Protocol: Document 09/28/21 12:15 [facility] (Rec: 09/28/21 13:01 [facility] [id number]) Cognitive Factors Limiting Selfcare Function Cognitive Ability Level of Alertness Alert Patient Orientation Name,Month,Date,Year,Day of Week,Place,Situation Attention Span Ability Capable of Focused Attention, Capable of Sustained Attention Ability to Follow Commands Able to Follow One Step Commands with Increased Time, Able to Follow One Step Commands with Repetition Cognitive Comments Cognitive Assessment Comments Pt able to follow commands for mobility needs. M7 OT- IP Mobility and Balance Start: 09/25/21 15:09 Freq: Status: Active Protocol: Document 09/28/21 12:15 [facility] (Rec: 09/28/21 13:01 [facility] [id number]) OT- Bed Mobility Assessment Supine to Sit Supine to Sit Assist Maximum Assistance,2 Person Assistance,Head of Bed Elevated,Bedrails Scooting Scooting to Edge of Bed Maximum Assistance,2 Person Assistance OT-Transfer Assessment Sit to and From Stand Sit to and from Stand Maximum Assistance,2 Person Assistance Transfers Transfer Ability Maximum Assistance,2 Person Assistance Technique Transfer Destination Bed,Chair Devices Transfer Assistive Devices None,Gait Belt Comments Mobility Comments Attempted to stand pt with FWW with MAX AX 2 , pt needing her feet blocked and not able to stand all the way up. Therefore able to do squat/ stand pivot transfer to the right and having the aid assist to guide her hips the the recliner. Nursing aid states to put a chair alarm on the pt and suggested use of ruthy for transfer back to the bed. OT- Balance Assessment Sitting Balance and Reactions Static Sitting Balance Ability Poor Dynamic Sitting Balance Ability Poor Comments Other Balance Tests/Deviations/Treatment Pt initially leaning back into : posterior tilt and needing MODA x1 for balance. Able to do gentle stretch into anterior tilt and able to use her hands to help hold herself up. M8 OT- IP Objective Assessments Start: 09/25/21 15:09 Freq: Status: Active Protocol: Document 09/25/21 15:09 CGR (Rec: 09/25/21 15:44 CGR [id number]) OT Gross Range of Motion Upper Extremity Range of Motion Assessment Within Functional Limits ROM Impairments Pt states she needs sx on her R shld but displays 0-110 ROM OT Strength Comments Strength Comments 4-/5 to arms and hands, shlds not tested OT- Coordination Assessment Upper Extremity Finger to Nose Test Within Functional Limits Finger Tapping Test Within Functional Limits OT-Muscle Tone Assessment Muscle Tone WNL Yes OT Sensation Assessment Edema Edema Absent M9 OT- IP Assessment and Plan Start: 09/25/21 15:09 Freq: Status: Active Protocol: Document 09/28/21 12:15 [facility] (Rec: 09/28/21 13:01 [facility] [id number]) OT Summary Assessment and Plan Potential Rehabilitation Potential Fair Analytic Complexity at Evaluation High Summary OT Impairments Pain,Range of Motion,Strength, Balance,Functional Mobility, Grooming,Dressing,Toileting, Bathing,Toilet Transfers, Shower Transfers,Activity Tolerance Progress Towards Goals Slow Progress due to Medical Issues,Slow Progress due to Activity Tolerance Assessment Summary Pt able to tolerate standing with FWW MAX AX 2 and not able to stand all the way up. Pt able to transfer with MAX X 2 squat/stand pivot to the recliner. At this time would be too great for her son to assist as would need a second person to help, otherwise would benefit from a ruthy lift. Still recommend skilled rehab. Goals Self-Feeding Goal Standby Assistance Grooming Goal Standby Assistance Dressing Goal Moderate Assistance Toileting Goal Moderate Assistance Bathing Goal Moderate Assistance Toilet Transfer Goal Moderate Assistance Shower Transfer Goal Moderate Assistance Days to Meet Goals 30 Frequency of Treatment Frequency Of Treatment Once a Day Treatment Plan OT Treatment Plan ADL Training,Functional Cognition Training,Functional Mobility,Patient/Family Education,Discharge Planning Discharge Recommendations OT Discharge Recommendations SNF Rehab Transportation Needs at Discharge Wheelchair/Cabulance
--- NOTE | 2021-09-28 13:20 | PC.NURSE ---
Addendum entered by Abigail Davis R.N. 09/28/21 15:47: 1300: emesis x 1, Zofran administered with relief. Original Note: Day shift note: Patient awake, alert, and cooperative. Very soft spoken, calm, and quiet. Up OOB to chair for lunch. Lunch intake: 1/2 of cottage cheese cup, 1/8 of chocolate pudding cup, 1/3 of banana. Pallor to facial and generalized weakness. While in bed, turning Q2 hours, SCDs in place, and support with pillows/heel cushion. Allevyn dressing to coccyx area, CDI, dated, and in place. Brief changes as needed, with application of barrier cream. Denies nausea and pain to this RN. High fall risk precautions in place, call light within reach, chair alarm as needed
--- NOTE | 2021-09-28 14:40 | PT.IPTN ---
Current Diagnoses Sepsis, unspecified organism (09/25/21) Physical Therapy Treatment Note M2 PT-IP Current Condition Start: 09/25/21 12:28 Freq: NEEDED Status: Active Protocol: Document 09/27/21 10:52 [facility] (Rec: 09/27/21 13:02 MA [id number]) Physical Therapy Current Condition Current Condition Evaluation Date 09/25/21 Treatment Diagnosis sepsis, UTI; metastatic leiomyosarcoma; generalized weakness Onset Date 09/24/21 M3 PT-IP Subjective Start: 09/25/21 12:28 Freq: NEEDED Status: Active Protocol: Document 09/28/21 14:26 [place] (Rec: 09/28/21 15:12 KS [id number]) Subjective Physical Therapy Visit Type Type Treatment Note Visit Start Time 14:26 Visit Stop Time 14:40 Total Visit Minutes 14 Notes OT present for assistance. Number of HOSPICE TEAM LEAD Visits 2 Physical Therapy Visit Comments Patient Comments Pt wanting to get back into bed. M4 PT-IP Mobility and Gait Start: 09/25/21 12:28 Freq: NEEDED Status: Active Protocol: Document 09/28/21 14:26 [facility] (Rec: 09/28/21 15:12 KS [id number]) PT-Bed Mobility Assessment Sit to Supine Sit to Supine Maximum Assistance,2 Person Assistance Scooting Scooting to Edge of Bed Maximum Assistance Scooting Up and Down in Bed Dependent PT-Transfer Assessment Sit to and From Stand Sit to and from Stand Maximum Assistance,Total Assistance,2 Person Assistance ,Use of Upper Extremities Equipment Transfer Assistive Device Gait Belt Transfers Transfer Destination Bed Transfer Technique Squat Pivot Transfer Ability Level of Assist Maximum Assistance,Total Assistance,2 Person Assistance ,Use of Upper Extremities Comments Mobility Comments Pt in chair wanting to get back in bed. Able to sit herself forward for gaitbelt application Min A but not able to maintain due to weakness and fatigue. Max A for scooting to edge of chair. Performed Squat pivot transfer from chair to bed Max/Total x2 w/ OT as second assist. Total A for scooting up and repositioning in bed. Pt refused further treatment due to fatigue. Gait Assessment Comments Gait Comments Unable at this time. PT-Balance Assessment Sitting Balance and Reactions Static Sitting Balance Ability Poor Dynamic Sitting Balance Ability Poor Standing Balance and Reactions Static Standing Balance Ability Poor Dynamic Standing Balance Ability Poor M5 PT-IP Objective Assessments Start: 09/25/21 12:28 Freq: NEEDED Status: Active Protocol: Document 09/25/21 13:58 AW (Rec: 09/25/21 15:07 AW [id number]) Orientation Orientation/Cognition Level of Alertness Alert Orientation Name,Month,Year,Place, Situation Language Function Ability No Deficits Noted Comments Pt is alert and oriented but confused. She speaks with soft voice. Gross Range of Motion Lower Extremity ROM Impairments Active dorsiflexion to neutral . Strength Lower Extremity Strength Assessment Bilaterally Impaired Hip 3+/5 Knee 3+/5 Ankle 4/5 Muscle Tone Muscle Tone WNL Yes M6 PT-IP Treatment Start: 09/25/21 12:28 Freq: NEEDED Status: Active Protocol: Document 09/28/21 15:12 [place] (Rec: 09/28/21 15:12 KS [id number]) Physical Therapy Treatment Education Education Provided Safety M7 PT-IP Assessment and Plan Start: 09/25/21 12:28 Freq: NEEDED Status: Active Protocol: Document 09/28/21 14:26 [facility] (Rec: 09/28/21 15:12 KS [id number]) PT Summary Assessment and Plan Potential Rehabilitation Potential Fair Status of Condition at Evaluation Evolving Summary Impairments Pain,ROM,Strength,Balance, Coordination,Cognition,Bed Mobility,Transfers,Gait, Activity Tolerance Assessment Summary Pt only able to tolerate squat pivot transfer from chair to bed requiring Max/Total A for transfer as well as repositioning in bed. She has poor trunk control and is limited by weakness and fatigue. She will require SNF to improve strength and mobility. Goals Bed Mobility Goal Moderate Assistance Transfer Goal Moderate Assistance,Front Wheeled Walker Gait Goal Moderate Assistance,Front Wheel Walker Gait Distance 25 Days to Meet Goals 10 Frequency of Treatment Frequency Of Treatment Once a Day Treatment Plan Physical Therapy Treatment Plan Bed Mobility Training,Transfer Training,Gait Training, Therapeutic Exercise,Balance Retraining,Discharge Planning, Hot or Cold Pack,Neuromuscular Re-ed,Coordination Retraining Other Recommendations and Next Treatment Co-treat with OT: sitting Focus balance, exercises EOB and sit <>stands as tolerated Precautions Other Precautions falls, sacral pressure injury Recommendations To Nursing Amount of Assist Needed Mechanical Lift Discharge Recommendations PT Discharge Recommendations SNF Rehab Transportation Needs at Discharge Stretcher/Ambulance
[2021-09-28] MEDS: ONDANSETRON 4 MG/2 ML INJ IV ×2 (14:41→23:17)
--- NOTE | 2021-09-28 14:48 | OT.IPNOTE ---
Able to assist BUILDINGS AND GROUNDS COORDINATOR for transfer back to bed for pt MAX/total Ax2 squat pivot. ABle to let case management know that pt is not appropriate for caregiver training as needing extensive 2 person assist or use of ruthy at this time for nursing. NO charge.
[2021-09-28] MEDS: METOCLOPRAMIDE HCL 5 MG TABLET PO (18:30)
--- NOTE | 2021-09-28 18:47 | P.PN_ITS ---
Subjective Subjective Date Patient Seen: 09/28/21 Interval history: 72-year-old female with metastatic leiomyosarcoma, admitted to the hospital with severe sepsis due to urinary tract infection. Urine cultures are growing E coli and Klebsiella pneumonia, both are sensitive to ceftriaxone. She continues to have intermittent nausea and vomiting. She complains of mouth pain, it appears she has yeast for which she is being treated. Her white count is improved. Overall the patient is making significant improved Exam Vital Signs (past 8 hours): - 09/28/21 11:03 09/28/21 15:00 Temperature 96.9 F L 97.6 F Pulse Rate 86 91 H Respiratory Rate 19 17 Blood Pressure 140/84 136/83 Pulse Oximetry 93 96 Oxygen Delivery Method Room Air Oxygen Flow Rate 0 Narrative Exam Narrative: Elderly female who is nonverbal lying in bed in no obvious distress Resp Other: Lungs clear to auscultation Cardio Other: Cardiac exam: Regular rate and rhythm normal S1-S2 GI Other: Abdomen soft nontender nondistended Other: Ferreira catheter in place Extrem Other: Extremity with trace edema Psych Other: Patient is withdrawn, nonverbal, but does not appear to be in any distress Objective Labs Result Diagrams: 09/28/21 06:05 09/28/21 06:05 Labs: Laboratory Results - last 24 hr 09/28/21 09/28/21 09/28/21 06:05 06:05 06:05 WBC 10.0 RBC 3.71 L Hgb 11.0 L Hct 34.8 L MCV 93.9 MCH 29.5 MCHC 31.4 RDW 17.3 H Plt Count 208 Neut % (Auto) 89.5 H Lymph % (Auto) 4.7 L [place] % (Auto) 5.0 Eos % (Auto) 0.6 L Baso % (Auto) 0.2 Neut # (Auto) 8900 H Lymph # (Auto) 500 L [place] # (Auto) 500 Eos # (Auto) 100 Baso # (Auto) 0 Sodium 131 L Potassium 4.5 Chloride 106 Carbon Dioxide 22 BUN 20 H Creatinine 0.62 Estimated GFR > 60.0 BUN/Creatinine Ratio 32.3 H Glucose 106 Calcium 8.4 Magnesium 2.1 Procalcitonin 1.44 H [facility] Medical History Acute bilateral low back pain with bilateral sciatica Arthritis Bleeding ulcer (2018) GERD (gastroesophageal reflux disease) History of frequent headaches History of transfusion (01/16/14) History of transfusion of packed red blood cells (01/16/14) HTN (hypertension) Hx of radiation therapy Left rib fracture (09/2017) Metastasizing leiomyoma of uterus Port-A-Cath in place Wears dentures Wears glasses Surgical History History of colonoscopy with polypectomy (03/22/14) History of esophagogastroduodenoscopy (EGD) (05/22/18) History of esophagogastroduodenoscopy (EGD) (03/22/14) History of lung biopsy (06/2014) History of total hysterectomy with bilateral salpingo-oophorectomy (BSO) (01/2014) Hx of bilateral cataract extraction (02/15/15) Hx of dilation and curettage (01/16/14) Hx of shoulder surgery (2018) Status post dilation and curettage Family History Mother Ovarian cancer Father Non-Hodgkin lymphoma Grandfather Skin cancer Social History household members: children Smoking Status: Unknown if ever smoked alcohol intake: never Assessment & Plan Assessment & Plan narrative: ?Sepsis, likely secondary to uti * Lactate on admission to the ED was 5.2 and with fluid resuscitation it came down to 4.0 * Unknown if due to active infection or malignancy or both * Will DC IV fluid * Await final urine culture results, currently growing Gram-negative rods, this should be sensitive to ceftriaxone, urine growing Klebsiella, and E coli, both sensitive to ceftriaxone * She will receive IV ceftriaxone 1 g daily and received IV Levaquin and IV Zosyn in the ED * Will continue IV antibiotics during her hospital stay, anticipate discharge without need for antibiotic * 2. Chronic hypoxemia likely due to inactivity * She has had a history of pneumothorax however this is been ruled out.? She has a moderate-sized pleural effusion on the right lung and a small 1 on the left * noted in ED to desat to the low 90s, now 94% on room air 3.? Elevated lactate, present on admission * on admission was 5.2, now 4.0, 2.4 * * improved with IV fluids and antibiotics 4. Sacral decubitus ulcer, appears to be chronic * Consider surgical consult if worsening 5. Anorexia, failure to thrive, GERD * continue Protonix * Severe acute protein calorie malnutrition 6. 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 Unfortunately we are unable to do so. Patient will receive this as an outpatient * 6. Anemia, chronic * Her ED admit H&H was initially 13.7 and 42.8 respectively and a repeat was 9.9 and 31 respectively which is more consistent with her post transfusion hemoglobin and hematocrit of April * Currently no need for transfusion, but will transfuse if her hematocrit drops below 87. Hypothyroidism, elevated TSH * TSH was 35.5 in April and today it is 16.3.? Free T4 is pending * Patient likely euthyroid sick, does not need treatment at this time8. Obstipation unknown if chronic or acute * Patient will be put on stool softeners and have an enema if indicated * 9. DispositionPatient previously at a retirement facility until she returned home, appears home situation may be problematic, will need to consider options when the patient is ready for discharge Patient and her son agree that she wants to return home with home health despite the fact that she appears to need extensive assistance. Anticipate discharge home in 1-2 days Time Spent With Patient Critical Care time: I spent a total of [] minutes of critical care time on this patient's care toda y; this time is exclusive of procedural time. Quality VTE Deep Vein Thrombosis/Pulmonary Embolism Present on Admission: No
[2021-09-28] MEDS: SERTRALINE 50 MG TABLET 100 MG PO (21:09)
[2021-09-28] MEDS: SENNOSIDES 8.6 MG TABLET 17.2 MG PO (21:09)
[2021-09-28] MEDS: SODIUM CHLORIDE 0.9% FLUSH 10 ML IV ×2 (21:18→23:17)
[2021-09-29] VITALS (8 sets, daily range): BP systolic 126–151; BP diastolic 71–99; PULSE 79–93; RESP 14–20; TEMP 36.1–36.3; O2SAT 94–96
[2021-09-29] MEDS: cefTRIAXone 1,000 MG in SODIUM CHLORIDE 0.9% 100 ML 200 ML IV (03:55)
[2021-09-29] MEDS: SODIUM CHLORIDE 0.9% FLUSH 10 ML IV ×2 (03:55→10:37)
[2021-09-29] MEDS: METOCLOPRAMIDE HCL 5 MG TABLET PO (04:52)
[2021-09-29] MEDS: PAZOPANIB 200 MG 800 EACH PO (06:05)
[2021-09-29 06:25] LABS: Add Manual Diff / Slide Review NO; Basophils Absolute Auto 0 /uL (0-100); Basophils Percent Auto 0.2 % (0-2); Eosinophils Absolute Auto 0 /uL (0-450); Eosinophils Percent Auto 0.2 % (2-4); Hematocrit 36.9 % (36-46); Hemoglobin 11.5 g/dL (12.0-16.0); Lymphocytes Absolute Auto 400 /uL (1100-4500); Lymphocytes Percent Auto 3.4 % (25-40); Mean Corpuscular HGB Conc 31.1 % (30-36); Mean Corpuscular Hemoglobin 29.3 PG (26-34); Mean Corpuscular Volume 93.9 fL (80-100); Monocytes Absolute Auto 600 /uL (0-900); Monocytes Percent Auto 4.8 % (3-14); Neutrophils Absolute Auto 12200 /uL (1500-7000); Neutrophils Percent Auto 91.4 % (50-75); Platelet Count 196 X10^3/uL (150-400); Red Blood Cell Count 3.93 X10^6/uL (4.0-5.2); Red Cell Distribution Width 17.8 % (11.6-14.8); White Blood Cell Count 13.3 X10^3/uL (4.5-11.0)
[2021-09-29 06:30] LABS: BUN Creatinine Ratio 32.1 (6-22); Blood Urea Nitrogen 18 mg/dL (7-17); Calcium 8.6 mg/dL (8.4-10.2); Carbon Dioxide 20 mmol/L (22-32); Chloride 104 mmol/L (98-107); Estimated Glomerular Filt Rate > 60.0 mL/min (>60); Glucose 95 mg/dL (80-110); HEMOLYSIS 20 (0-50); Potassium 4.6 mmol/L (3.4-5.1); Sodium 130 mmol/L (137-145)
[2021-09-29 06:47] LABS: Procalcitonin 1.05 ng/mL (<0.5)
[2021-09-29] MEDS: PANTOPRAZOLE DR 20 MG TABLET PO (10:36)
[2021-09-29] MEDS: ENOXAPARIN 40 MG/0.4 ML SYRINGE SUBCUT (10:36)
[2021-09-29] MEDS: NYSTATIN SUSP 500,000 UNIT/5 ML UDC 500000 UNIT PO (10:36)
[2021-09-29] MEDS: OXYBUTYNIN 5 MG ER TAB 10 MG PO (10:36)
--- NOTE | 2021-09-29 11:34 | CM.DPC ---
Addendum entered by Mariam Herrera R.N. 09/29/21 16:06: Dr. Galindo and this planner intern met with patient and on, Carrillo. He is wanting to find out what is causing her nausea. Patient flat, does not participate in the conversation. Dr. Galindo discussed appetite, and if patient would want feeding tube. Carrillo stated, no, that's something she would not want. Patient's son is wanting to go ahead with EGD to see what is causing her nausea. Dr. Galindo stated that she can discuss with Dr. Santiago, if she does not want to do the procedure due to her current co-morbidities, such as her cancer metastasis, then there is not much else to do. Comfort care was not yet discussed during meeting. Son is prepared to take her home with home health. He was frustrated, because [facility] told him that [place] Let him know that referrals were both sent to [facility] and [facility], and can see which agency can see her the soonest upon discharge. Reminded him that he also will be getting a call from [facility]. He is hoping he can be a [facility] caregiver. P: DCP to continue to follow. Plan is home with either [facility] or [facility]. Will need face to face signed. Original Note: DCP Cont: Discussed patient during team rounds. At this time, no alf facilities can accept, due to limitations of her working with P.T, and participation. Confirmed with Martha at [facility], for this reason, they also can't accept. Dr. Galindo was discussing patient's continued nausea and vomiting, and limited appetite. Mentioned having a care conference with son, Carrillo today, about goals of care. Dr. Galindo indicated, they can either do an EGD, feeing tube, comfort, are some options. Will need to be discussed with son, at this time patient is a full code. This planner intern called son, Carrillo, and asked him to come to the hospital to discuss his mother, with this planner intern, and hospitalist. He mentioned that he is going to [facility] for an appointment that he has, stated, he can be her by 4:00. Asked him if he can be here sooner if possible, stated, he'd try. Plan at this time is still home, but son continues to have concerns about her not eating and nausea. She was not able to work with therapy yesterday due to nausea and vomiting. Some concerns are him being able to manage her at home, and if he will bring her back to the hospital for not eating, or vomiting. P: DCP to continue to follow. Plan is home when stable, have already submitted [facility] application, and they have received and will be setting up home visit. Faxed [facility] and [facility], will see which agency can get to the home the soonest. Mariam Herrera RN/Funeral Director/Embalmer/Owner
--- NOTE | 2021-09-29 12:43 | PT.IPTN ---
Current Diagnoses Sepsis, unspecified organism (09/25/21) Physical Therapy Treatment Note M2 PT-IP Current Condition Start: 09/25/21 12:28 Freq: NEEDED Status: Active Protocol: Document 09/27/21 10:52 MA (Rec: 09/27/21 13:02 MA [id number]) Physical Therapy Current Condition Current Condition Evaluation Date 09/25/21 Treatment Diagnosis sepsis, UTI; metastatic leiomyosarcoma; generalized weakness Onset Date 09/24/21 M3 PT-IP Subjective Start: 09/25/21 12:28 Freq: NEEDED Status: Active Protocol: Document 09/29/21 12:19 KS (Rec: 09/29/21 15:37 KS [id number]) Subjective Physical Therapy Visit Type Type Treatment Note Visit Start Time 12:19 Visit Stop Time 12:43 Total Visit Minutes 24 Notes Co-treat w/ OT Number of [place] MAGISTRATE Visits 3 Physical Therapy Visit Comments Patient Comments Pt needs encouragement to transfer to chair. M4 PT-IP Mobility and Gait Start: 09/25/21 12:28 Freq: NEEDED Status: Active Protocol: Document 09/29/21 12:19 KS (Rec: 09/29/21 15:37 KS [id number]) PT-Bed Mobility Assessment Sit to Supine Sit to Supine Maximum Assistance,2 Person Assistance Scooting Scooting to Edge of Bed Maximum Assistance PT-Transfer Assessment Transfers Transfer Destination Bed Transfer Technique Squat Pivot Comments Mobility Comments Pt in bed upon arrival from PT and OT and initially not agreeable to mobilizing w/ therapy, but agreeable to transfer to chair. Pillows and waffle cushion positioned to make chair for comfortable. Pt only able to move BLE very minimally towards EOB, but ultimately requiring Max A x2 for sup<>sit and scooting EOB< Max A for seated balance due to posterior lean. Max A x2 for squat pivot from bed to chair. Max A x3 for scooting pt back in chair due to pt needing trunk support. Pt left in chair w/ alarm on and all needs in reach. Gait Assessment Comments Gait Comments Unable at this time. PT-Balance Assessment Sitting Balance and Reactions Static Sitting Balance Ability Poor Dynamic Sitting Balance Ability Poor M5 PT-IP Objective Assessments Start: 09/25/21 12:28 Freq: NEEDED Status: Active Protocol: Document 09/25/21 13:58 AW (Rec: 09/25/21 15:07 AW [id number]) Orientation Orientation/Cognition Level of Alertness Alert Orientation Name,Month,Year,Place, Situation Language Function Ability No Deficits Noted Comments Pt is alert and oriented but confused. She speaks with soft voice. Gross Range of Motion Lower Extremity ROM Impairments Active dorsiflexion to neutral . Strength Lower Extremity Strength Assessment Bilaterally Impaired Hip 3+/5 Knee 3+/5 Ankle 4/5 Muscle Tone Muscle Tone WNL Yes M6 PT-IP Treatment Start: 09/25/21 12:28 Freq: NEEDED Status: Active Protocol: Document 09/29/21 12:19 KS (Rec: 09/29/21 15:37 KS [id number]) Physical Therapy Treatment Education Education Provided Safety M7 PT-IP Assessment and Plan Start: 09/25/21 12:28 Freq: NEEDED Status: Active Protocol: Document 09/29/21 12:19 KS (Rec: 09/29/21 15:37 KS [id number]) PT Summary Assessment and Plan Potential Rehabilitation Potential Fair Status of Condition at Evaluation Evolving Summary Impairments Pain,ROM,Strength,Balance, Coordination,Cognition,Bed Mobility,Transfers,Gait, Activity Tolerance Assessment Summary Pt still requiring Max A to Total Assist x2 for bed mobility and squat pivot transfer. Pt is extremely weak , cannot maintain seated balanace and can only move limbs very minimally. Not safe to perform caregiver training at this time due to need for skilled therapy transfers at this time. She will require SNF to improve mobility. Goals Bed Mobility Goal Moderate Assistance Transfer Goal Moderate Assistance,Front Wheeled Walker Gait Goal Moderate Assistance,Front Wheel Walker Gait Distance 25 Days to Meet Goals 10 Frequency of Treatment Frequency Of Treatment Once a Day Treatment Plan Physical Therapy Treatment Plan Bed Mobility Training,Transfer Training,Gait Training, Therapeutic Exercise,Balance Retraining,Discharge Planning, Hot or Cold Pack,Neuromuscular Re-ed,Coordination Retraining Other Recommendations and Next Treatment Co-treat with OT: sitting Focus balance, exercises EOB and sit <>stands as tolerated Precautions Other Precautions falls, sacral pressure injury Recommendations To Nursing Amount of Assist Needed Mechanical Lift Discharge Recommendations PT Discharge Recommendations SNF Rehab Transportation Needs at Discharge Stretcher/Ambulance
--- NOTE | 2021-09-29 12:52 | OT.IP.TRT ---
Current Diagnoses Sepsis, unspecified organism (09/25/21) Occupational Therapy Treatment Note M2 OT-IP Current Condition Start: 09/25/21 15:09 Freq: Status: Active Protocol: Document 09/25/21 15:09 CGR (Rec: 09/25/21 15:44 CGR [id number]) Occupational Therapy Current Condition Current Condition Evaluation Date 09/25/21 Treatment Diagnosis weakness, UTI, liver disease, R colitis, leiomyosarcoma Diagnosis Onset Date 09/25/21 M3 OT- IP Subjective and Pain Start: 09/25/21 15:09 Freq: Status: Active Protocol: Document 09/29/21 15:26 CGR (Rec: 09/29/21 15:36 CGR [id number]) OT- Subjective Occupational Therapy Visit Type Type Progress Note Visit Start Time 10:42 Visit Stop Time 12:52 Total Visit Minutes 38 Notes Split treatment [id number] with P.T. M4 OT- IP ADL's Start: 09/25/21 15:09 Freq: Status: Active Protocol: Document 09/29/21 15:26 CGR (Rec: 09/29/21 15:36 CGR [id number]) OT [id number]-Krcmfet General Evaluation Self-Feeding Ability Moderate Assistance,Maximum Assistance Comments OT Self-Feeding Comments Pt having trouble eating. Notified aide that pt needs assist with feeding. Discussed with aide later and she stated that pt was having trouble with chewing. Recommended pureed at this time and speech eval. OT ADL-Grooming Comments OT Grooming Comments Pt declined OT ADL-Oral Care Comments Oral Care Comments Pt declined OT ADL-Dressing General Eval Lower Body Dressing Ability Total Assistance Areas Needing Assistance Socks OT ADL-Toileting General Evaluation Toileting Ability Total Assistance Comments OT Toileting Comments ballard OT ADL-Bathing Comments OT Bathing Comments not performed M5 OT- IP IADL's Start: 09/25/21 15:09 Freq: Status: Active Protocol: Document 09/25/21 15:09 CGR (Rec: 09/25/21 15:44 CGR [id number]) OT-Instrumental Activities of Daily Living Deficits IADL Deficits Identified Deficits Home Safety Awareness Awareness of Need for Assistance at Home Decreased Awareness Ability to Problem Solve Emergency Unable to Problem Solve Situations Medication Management Medication Management Caregiver Administers Money Management Money Management Caregiver Provides Assistance Meal Preparation Meal Preparation Caregiver Provides Assist Meal Preparation Comments Pt just started with meals on wheels Manager Pool Manager Pool Caregiver Provides Assist Driving Driving Comments Pt's son does all driving M6 OT- IP Functional Cognition Start: 09/25/21 15:09 Freq: Status: Active Protocol: Document 09/29/21 15:26 CGR (Rec: 09/29/21 15:36 CGR [id number]) Cognitive Factors Limiting Selfcare Function Cognitive Ability Level of Alertness Alert Patient Orientation Name Ability to Follow Commands Able to Follow One Step Commands with Increased Time, Able to Follow One Step Commands with Repetition Cognitive Comments Cognitive Assessment Comments Pt initally not agreeable to activity but discussed plan of care and possible comfort care and pt then agreeable. M7 OT- IP Mobility and Balance Start: 09/25/21 15:09 Freq: Status: Active Protocol: Document 09/29/21 15:26 CGR (Rec: 09/29/21 15:36 CGR [id number]) OT- Bed Mobility Assessment Supine to Sit Supine to Sit Assist Total Assistance,2 Person Assistance Scooting Scooting to Edge of Bed Total Assistance,2 Person Assistance OT-Transfer Assessment Transfers Transfer Ability Total Assistance,2 Person Assistance Technique Transfer Destination Bed,Chair Transfer Technique Squat Pivot Devices Transfer Assistive Devices Gait Belt Comments Mobility Comments 2 person total assist transfer to chair. Pt is unable to stand and needs total assist for sitting balance. OT- Balance Assessment Sitting Balance and Reactions Static Sitting Balance Ability Poor Dynamic Sitting Balance Ability Poor M8 OT- IP Objective Assessments Start: 09/25/21 15:09 Freq: Status: Active Protocol: Document 09/25/21 15:09 CGR (Rec: 09/25/21 15:44 CGR [id number]) OT Gross Range of Motion Upper Extremity Range of Motion Assessment Within Functional Limits ROM Impairments Pt states she needs sx on her R shld but displays 0-110 ROM OT Strength Comments Strength Comments 4-/5 to arms and hands, shlds not tested OT- Coordination Assessment Upper Extremity Finger to Nose Test Within Functional Limits Finger Tapping Test Within Functional Limits OT-Muscle Tone Assessment Muscle Tone WNL Yes OT Sensation Assessment Edema Edema Absent M9 OT- IP Assessment and Plan Start: 09/25/21 15:09 Freq: Status: Active Protocol: Document 09/29/21 15:26 CGR (Rec: 09/29/21 15:36 CGR [id number]) OT Summary Assessment and Plan Potential Rehabilitation Potential Fair Analytic Complexity at Evaluation High Summary OT Impairments Pain,Range of Motion,Strength, Balance,Functional Mobility, Grooming,Dressing,Toileting, Bathing,Toilet Transfers, Shower Transfers,Activity Tolerance Progress Towards Goals Slow Progress due to Medical Issues,Slow Progress due to Activity Tolerance Assessment Summary Pt performed squat pivot transfer with total assist x2. Pt with minimal participation on this date and appears minimally motivated with all activity. Goals Self-Feeding Goal Standby Assistance Grooming Goal Standby Assistance Dressing Goal Moderate Assistance Toileting Goal Moderate Assistance Bathing Goal Moderate Assistance Toilet Transfer Goal Moderate Assistance Shower Transfer Goal Moderate Assistance Days to Meet Goals 30 Frequency of Treatment Frequency Of Treatment Once a Day Treatment Plan OT Treatment Plan ADL Training,Functional Cognition Training,Functional Mobility,Patient/Family Education,Discharge Planning Other Treatment Recommendations and Next co-treat for all mobility Treatment Focus Discharge Recommendations OT Discharge Recommendations SNF Rehab Transportation Needs at Discharge Wheelchair/Cabulance
--- NOTE | 2021-09-29 13:59 | DIET.PN1 ---
Addendum entered by Heather Allen 09/29/21 15:01: Pt feeling very nauseated and not wanting protein shakes or ONS at this time. Kitchen bringing up chicken noodle soup per her request and notified to help increase protein foods for this pt. Addendum entered by Heather Allen 09/29/21 14:13: In rounds today, staff indicated it is possible that family may be eating from her tray. This may impact the accuracy of calorie count. Will cont to evaluate. Original Note: Dietary Progress Note Assessment: 76y F admitted for weakness and N/V, per report, took 4 people to get pt out of personal vehicle due to weakness. Pt with leiomyosarcoma with mets to liver and lungs. Per CT report, liver mets increased on scan on 09/04 and 09/25 despite continued oncology tx. Yesterday's kcal count indicates, 1477 kcals = 77% of needs ; 41g PRO = 59-55% of needs Weight has improved since admission and close to UBW. Ht: 167.64 cm Wt: 61.3 kg BMI: 21.8 UBW: 63-65kg Last BM: 09/29/21 (09/29/21 04:30) MNA: 8 Shiv Score: 15 Diet: 09/25/21 Breakfast Heart Healthy Diet Diet Modifications: Nutrition Percent Meal Consumed 25% 09/29/21 11:18 Percent Meal Consumed 50% 09/28/21 13:22 Percent Meal Consumed 20 09/28/21 09:16 Percent Meal Consumed 50% 09/27/21 18:00 Labs: RBC 3.93 X10^6/uL (4.0-5.2) L 09/29/21 06:00 Hgb 11.5 g/dL (12.0-16.0) L 09/29/21 06:00 Hct 36.9 % (36-46) 09/29/21 06:00 Creatinine 0.56 mg/dL (0.52-1.04) 09/29/21 06:00 Lactate 2.4 mmol/L (0.7-2.1) H 09/26/21 11:26 NT-Pro-B Natriuret Pep 1050 pg/mL (<450) H 09/25/21 01:10 Nutrition Diagnosis: Severe Chronic Malnutrition r/t eating intolerance and catabolic state aeb pt admitted for N/V, weakness, POs 5-10% of EER today, admission BMI 19.6 (severe for age), pt 15% UBW when admitted, pt weak with adult failure to thrive, imaging showing progression of liver mets. Interventions: 1. Monitoring calorie count to assess pts ability to meet nutrition needs with PO intake. 2. Sending known favorite foods to spur PO intake. 3. Recc timing antiemetics around meal time to encourage PO intake. 4. Working with kitchen to offer a protein smoothie or ONS pending pt's preference. This could increase kcals to 88% of needs and 70% PRO needs daily. EER: 1925kcals (35kcal/kg), 70-75g PRO (1.3-1.5g/kg) Monitoring/Evaluations: following daily Electronically Signed by: Heather Allen 09/29/21 13:59 Clinical Dietitian [address] [id number]
--- NOTE | 2021-09-29 14:22 | PC.NURSE ---
Day shift: Per KNOCKDOWN MAN Pt had emesis after lunch today. Per [employer]DOWN MAN Pt threw up all over herself. All emesis cleaned up at this time. Pt has been sitting in chair after working w/ PT/OT this afternoon. She will be Katya lifted back to bed. Vero w/ CM to meet with Pt's Son today for plan going forward. Call light in reach.
--- NOTE | 2021-09-29 17:36 | P.PN_ITS ---
Subjective Subjective Date Patient Seen: 09/29/21 Interval history: 76-year-old female with a history of metastatic leiomyosarcoma admitted to the hospital with sepsis secondary to UTI. Patient still has nausea and emesis. She is eating a minimal amount of food. She is very weak and requires a maximum 2 person assist. Very likely she will need a ruthy lift if she returns home. Her son is here for a family conference. The major concern is her nausea, inability to eat, and recurrent emesis. Patient is essentially non verbal, has no compliants but is awake and alert. Exam Vital Signs (past 8 hours): - 09/29/21 09:53 09/29/21 11:47 Temperature 96.9 F L Pulse Rate 87 Respiratory Rate 20 Blood Pressure 138/92 H Pulse Oximetry 94 95 Oxygen Delivery Method Room Air Oxygen Flow Rate 0 Narrative Exam Narrative: Pale ill-appearing elderly female sitting in a chair Resp Other: Lungs clear to auscultation Cardio Other: Cardiac exam: Regular rate and rhythm normal S1-S2 with a 2/6 systolic ejection murmur GI Other: Abdomen: Soft nontender nondistended Other: Ferreira catheter in place Extrem Other: Extremity no edema Objective Labs Result Diagrams: 09/29/21 06:00 09/29/21 06:00 Labs: Laboratory Results - last 24 hr 09/29/21 09/29/21 09/29/21 06:00 06:00 06:00 WBC 13.3 H RBC 3.93 L Hgb 11.5 L Hct 36.9 MCV 93.9 MCH 29.3 MCHC 31.1 RDW 17.8 H Plt Count 196 Neut % (Auto) 91.4 H Lymph % (Auto) 3.4 L Scurry % (Auto) 4.8 Eos % (Auto) 0.2 L Baso % (Auto) 0.2 Neut # (Auto) 21393 H Lymph # (Auto) 400 L Scurry # (Auto) 600 Eos # (Auto) 0 Baso # (Auto) 0 Sodium 130 L Potassium 4.6 Chloride 104 Carbon Dioxide 20 L BUN 18 H Creatinine 0.56 Estimated GFR > 60.0 BUN/Creatinine Ratio 32.1 H Glucose 95 Calcium 8.6 Procalcitonin 1.05 H [facility] Medical History Acute bilateral low back pain with bilateral sciatica Arthritis Bleeding ulcer (2018) GERD (gastroesophageal reflux disease) History of frequent headaches History of transfusion (01/16/14) History of transfusion of packed red blood cells (01/16/14) HTN (hypertension) Hx of radiation therapy Left rib fracture (09/2017) Metastasizing leiomyoma of uterus Port-A-Cath in place Wears dentures Wears glasses Surgical History History of colonoscopy with polypectomy (03/22/14) History of esophagogastroduodenoscopy (EGD) (05/22/18) History of esophagogastroduodenoscopy (EGD) (03/22/14) History of lung biopsy (06/2014) History of total hysterectomy with bilateral salpingo-oophorectomy (BSO) (01/2014) Hx of bilateral cataract extraction (02/15/15) Hx of dilation and curettage (01/16/14) Hx of shoulder surgery (2018) Status post dilation and curettage Family History Mother Ovarian cancer Father Non-Hodgkin lymphoma Grandfather Skin cancer Social History household members: children Smoking Status: Unknown if ever smoked alcohol intake: never Assessment & Plan Assessment & Plan narrative: Sepsis, likely secondary to uti * Lactate on admission to the ED was 5.2 and with fluid resuscitation it came down to 4.2 * , urine growing Klebsiella, and E coli, both sensitive to ceftriaxone-continue 7 days or until discharge * * She will receive IV ceftriaxone 1 g daily and received IV Levaquin and IV Zosyn in the ED * Will continue IV antibiotics during her hospital stay, anticipate discharge without need for antibiotic, procalcitonin improved * 2. Chronic hypoxemia likely due to inactivity * She has had a history of pneumothorax however this is been ruled out.? She has a moderate-sized pleural effusion on the right lung and a small 1 on the left * noted in ED to desat to the low 90s, now 94% on room air 3.? Elevated lactate, present on admission * on admission was 5.2, now 4.0, 2.4 * * improved with IV fluids and antibiotics4. Sacral decubitus ulcer, appears to be chronic * 5. Anorexia, failure to thrive, GERD * continue Protonix, Surgery consult for EGD to r/o yeast esophagitis or other etiology for nausea/emesis * Severe acute protein calorie malnutrition, this is significant and will hasten . She has metastaic cancer, her protein malnutrition will contribute to h er early . * 6. 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 Unfortunately we are unable to do so.? Patient will receive this as an outpatient * 7 Anemia, chronic * Her ED admit H&H was initially 13.7 and 42.8 respectively and a repeat was 9.9 and 31 respectively which is more consistent with her post transfusion hemoglobin and hematocrit of April * Currently no need for transfusion, but will transfuse if her hematocrit drops below 87. Hypothyroidism, elevated TSH * TSH was 35.5 in April and today it is 16.3.? Free T4 is pending * Patient likely euthyroid sick, does not need treatment at this time8. Obstip ation unknown if chronic or acute * Patient will be put on stool softeners and have an enema if indicated * 9. DispositionPatient [facility] at [facility] until she returned home, appears home situation may be problematic, will need to co nsider options when the patient is ready for dischargePatient and her son agree that she wants to return home with home health despite the fact that she appears to need extensive assistance. Anticipate discharge home in 1-2 days ( Follow ing EGD) Time Spent With Patient Critical Care time: I spent a total of [] minutes of critical care time on this patient's care today; this time is exclusive of procedural time. Quality VTE Deep Vein Thrombosis/Pulmonary Embolism Present on Admission: No
[2021-09-29] MEDS: SERTRALINE 50 MG TABLET 100 MG PO (20:20)
[2021-09-29] MEDS: SENNOSIDES 8.6 MG TABLET 17.2 MG PO (20:22)
[2021-09-30] VITALS (8 sets, daily range): BP systolic 127–156; BP diastolic 76–98; PULSE 87–96; RESP 16–19; TEMP 35.9–36.5; O2SAT 92–94
[2021-09-30] MEDS: cefTRIAXone 1,000 MG in SODIUM CHLORIDE 0.9% 100 ML 200 ML IV (04:41)
[2021-09-30] MEDS: PAZOPANIB 200 MG 800 EACH PO (06:16)
--- NOTE | 2021-09-30 07:30 | P.PN_ITS ---
Subjective Subjective Date Patient Seen: 09/30/21 Interval history: She is seen today to follow-up her difficulty swallowing, metastatic leiomyosarcoma, urinary sepsis and weakness. She remains very, very weak, basically a 2 person assist with Katya lift to transfer. This is quite a dil domitila as her son, who at times is wheelchair-bound himself, is insisting on taking her home and caring for her. Without professional assistance at home that will be untenable. Apparently she had been at a correction facility for about [address] [facility] and had a very poor experience and does not wish to try that again. She blames her slowed interaction/en the on feeling ?so tired. ? The white blood count is 13.3 with a hemoglobin of 11.5. The BMP is normal. Exam Vital Signs (past 8 hours): - 09/30/21 00:15 09/30/21 04:27 09/30/21 07:05 Temperature 97.2 F L 97.7 F 96.7 F L Pulse Rate 92 H 87 90 Respiratory Rate 18 18 16 Blood Pressure 143/87 H 130/76 140/89 Pulse Oximetry 94 93 93 Oxygen Delivery Method Room Air Oxygen Flow Rate 0 Narrative Exam Narrative: Alert and oriented x3. Very flat affect and low volume voice. Seems to track but definitely does not fully engage. Heart is regular rate and rhythm without murmur Lungs are clear to auscultation bilaterally Extremities have no ankle edema She has a significant facial/chin/tongue tremor and flat affect. She says she is tired. Motor function is 2/5 throughout Objective Labs Result Diagrams: 09/29/21 06:00 09/29/21 06:00 Labs: Laboratory Results - last 24 hr 09/25/21 01:10 Crossmatch See Detail [facility] Medical History Acute bilateral low back pain with bilateral sciatica Arthritis Bleeding ulcer (2017) GERD (gastroesophageal reflux disease) History of frequent headaches History of transfusion (01/16/14) History of transfusion of packed red blood cells (01/16/14) HTN (hypertension) Hx of radiation therapy Left rib fracture (09/2017) Metastasizing leiomyoma of uterus Port-A-Cath in place Wears dentures Wears glasses Surgical History History of colonoscopy with polypectomy (03/22/14) History of esophagogastroduodenoscopy (EGD) (05/22/18) History of esophagogastroduodenoscopy (EGD) (03/22/14) History of lung biopsy (06/2014) History of total hysterectomy with bilateral salpingo-oophorectomy (BSO) (01/2014) Hx of bilateral cataract extraction (02/15/15) Hx of dilation and curettage (01/16/14) Hx of shoulder surgery (2019) Status post dilation and curettage Family History Mother Ovarian cancer Father Non-Hodgkin lymphoma Grandfather Skin cancer Social History household members: children Smoking Status: Unknown if ever smoked alcohol intake: never Assessment & Plan Assessment & Plan narrative: Sepsis, likely secondary to uti * Lactate on admission to the ED was 5.2 and with fluid resuscitation it came down to 4.2 -urine growing Klebsiella, and E coli, both sensitive to ceftriaxone-continue 7 days or until discharge * She received IV Levaquin and IV Zosyn in the ED Chronic hypoxemia likely due to inactivity * She has had a history of pneumothorax however this is been ruled out.? She has a moderate-sized pleural effusion on the right lung and a small pleural effusion on the left * noted in ED to desat to the low 90s, now 94% on room air.? * Sacral decubitus ulcer, appears to be chronic Anorexia, failure to thrive, GERD * continue Protonix, Surgery consult 09/30 for EGD to r/o yeast esophagitis or other etiology for nausea/emesis Protein Calorie Malnutritions -this is significant and will hasten . She has metastatic cancer, her protein malnutrition will contribute to her early . 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 Unfortunately we are unable to do so.? Patient will receive this as an outpatient Anemia, chronic * Her ED admit H&H was initially 13.7 and 42.8 respectively and a repeat was 9.9 and 31 respectively which is more consistent with her post transfusion hemoglobin and hematocrit of April * Currently no need for transfusion, but will transfuse if her hematocrit drops below * Hypothyroidism, elevated TSH * TSH was 35.5 in April and today it is 16.3.? Free T4 is pending * Patient likely euthyroid sick, does not need treatment at this time * Obstipation unknown if chronic or acute * Patient will be put on stool softeners and have an enema if indicated the * Disposition: Patient previously at a correction facility until she returned home, appears home situation may be problematic, will need to consider options when the patient is ready for discharge Patient and her son agree that she wants to return home with home health despite the fact that she appears to need extensive assistance. (Dr. Galindo met with her son in person) Anticipate discharge home in 1-2 days ( Following EGD) Time Spent With Patient Critical Care time: I spent a total of [] minutes of critical care time on this patient's care today; this time is exclusive of procedural time. Quality VTE Deep Vein Thrombosis/Pulmonary Embolism Present on Admission: No
[2021-09-30] MEDS: NYSTATIN SUSP 500,000 UNIT/5 ML UDC 500000 UNIT PO (10:29)
[2021-09-30] MEDS: ENOXAPARIN 40 MG/0.4 ML SYRINGE SUBCUT (10:29)
[2021-09-30] MEDS: PANTOPRAZOLE DR 20 MG TABLET PO (10:29)
[2021-09-30] MEDS: OXYBUTYNIN 5 MG ER TAB 10 MG PO (10:29)
[2021-09-30] MEDS: SODIUM CHLORIDE 0.9% FLUSH 10 ML IV ×2 (10:29→20:59)
[2021-09-30] MEDS: DICLOFENAC 1% GEL 100 GM 1 APPLIC TOP ×2 (10:30→21:00)
--- NOTE | 2021-09-30 11:10 | ST.IPCSEOM ---
Visit Care Team Role Provider Type Fuad Burkett MD Primary Care Provider Physician Specialty: Internal Medicine Address: [address] [place] [address], [id number] Email: [email or web address] [email or web address] DO Emergency Provider Physician Referring Provider Specialty: Emergency Medicine Address: [address] [place] [address], [facility] Email: [email or web address] Admit Provider Physician Attending Provider Specialty: Internal Medicine Address: [address] [place] [address], [facility] Email: [email or web address] Diagnoses Sepsis, unspecified organism (09/25/21) Past Medical History (Last Reviewed 09/25/21 @ 04:30 by DESIREE Barrera) Acute bilateral low back pain with bilateral sciatica (Medical) Arthritis (Medical) Bleeding ulcer (Medical 2017) GERD (gastroesophageal reflux disease) (Medical) History of colonoscopy with polypectomy (Medical 03/22/14) History of esophagogastroduodenoscopy (EGD) (Medical 05/22/18) Dysphagia History of esophagogastroduodenoscopy (EGD) (Medical 03/22/14) History of frequent headaches (Medical) History of lung biopsy (Medical 06/2014) Confirming metastases History of total hysterectomy with bilateral salpingo-oophorectomy (BSO) (Medical 01/2014) History of transfusion (Medical 01/16/14) History of transfusion of packed red blood cells (Medical 01/16/14) HTN (hypertension) (Medical) Hx of bilateral cataract extraction (Medical 02/15/15) Hx of dilation and curettage (Medical 01/16/14) Hx of radiation therapy (Medical) Stereotactic radiation to lung Hx of shoulder surgery (Medical 2018) Left rib fracture (Medical 09/2017) Multiple Metastasizing leiomyoma of uterus (Medical) With pulmonary metastases Port-A-Cath in place (Medical) Wears dentures (Medical) Wears glasses (Medical) Speech-Language Pathology Swallow Evaluation PRICER BAGGER Clinical Swallow Evaluation Start: 09/30/21 10:46 Freq: Status: Active Protocol: Document 09/30/21 10:46 MG (Rec: 09/30/21 11:08 MG [id number]) Clinical Swallow Evaluation Session Time Visit Start Time 10:15 Visit Stop Time 10:45 Total Visit Minutes 30 Visit Information Visit Number 1 Setting Assessment Location Acute Care Visit Type Note Type Initial evaluation Next Note Type Next Note Type Treatment Note Patient Information Identification Type Name,Wristband History Pt is a 76-year-old female who arrives via private auto after having a lift assist by EMS. Pt is very lethargic and history is provided by Carrillo , her son and CHIQUI. Patient has been weak, unable to ambulate, short of breath, vomiting brown emesis, and said he heard gurgling from her abdomen.? He states she has not worn dentures since the start of the pandemic, and stated she complained that her mouth hurts. She was unable to give a history, but told the ED provider she has had nausea and vomiting for 3 days.? She is quite pale and she states this is atypical.? She states she has had blood transfusions and is treated for a leiomyosarcoma and is undergoing active treatment.? Most recently she had a transfusion a couple weeks ago on August 30 for her anemia and received 1 unit PRBCs.? Denies any black or bloody stools though son noted she was vomiting brown emesis .? She denies prior GI bleeds. ? Denies any fevers or chills. ? She also has a history of pleural effusion, pneumothorax , leiomyosarcoma and radiation pneumonitis. In the emergency department they did a chest x -ray which indicated ?mass like opacity of the lungs bilaterally concerning for recurrent pneumonia or related to a neoplastic process. Small right-sided pleural effusion. CT of the chest in abdomen ruled out a PE or pneumothorax which the patient has had chronic episodes of this. She had an elevated white count of 16.9. UA is positive for UTI with presence of nitrates and bacteria. Per recent progress notes; pt also has a history of GERD. Subjective Observations Pt was sleeping in bed in a reclined position upon PRICER BAGGER entry with nurse. Pt could be awoken from sleep to take medications and participate in evaluation. Per nurse, pt is eating small amounts of soft foods and not meeting intake needs. Pt is soft spoken and reported that she was tired, but not feeling nauseous at this time. Pt was agreeable to evaluation. Reported by Patient Other Symptoms Other Comment Not eating a lot, very weak and low weight Current Diet Regular,Thin liquids Baseline Feeding Method Dependent for feeding Objective Assessment Mental Status Responsive,Cooperative, Lethargic Oral Integrity Oral residue Dentition Missing teeth Lip Function Mild impairment Observation of Lips at Rest Symmetrical Pucker Reduced range of motion, Reduced strength Lip Retraction Reduced range of motion Alternating Pucker/Lip Retraction Reduced range of motion Tongue Function Mild impairment Observations of Tongue at Rest Within normal limits Tongue Protrusion Reduced range of motion, Reduced strength Tongue Retraction Reduced range of motion, Reduced strength Tongue Lateralization Reduced strength Jaw Function Mild impairment Observations of Jaw at Rest Within normal limits Jaw Opening Reduced strength Jaw Closing Reduced strength Jaw Lateralization Reduced strength Jaw Protrusion Reduced strength Jaw Retraction Reduced strength Hard/Soft Palate Function Within normal limits Observations of Hard/Soft Palate Within normal limits Nasality Within normal limits Phonation Reduced loudness Respiratory Sufficiency Within normal limits Comment Overall pt presents as very weak at this time and oral movements are all considered to be weak and slow. Pt was not wearing dentures and noted they were not present at the hospital. Food and Liquid Trials Position During Assessment Slightly reclined Liquids Trialed Thin Solids Trialed Puree Administration Type Straw,Dependent feeding Oral Impairment Moderately impaired Oral Phase Comments PRICER BAGGER observed pt take medications with no difficulties. Pt has adequate oral lip seal around straw when taking consecutive sips of water. When presented with puree textured solids, pt appeared to masticate and initiate swallow in an efficient time frame. No residue from puree was in oral cavity upon PRICER BAGGER check. With no dentures, the pt would have difficulty needing to masticate any increased textures. Pharyngeal Impairment Mildly impaired Pharyngeal Phase Comments Laryngeal palpation indicated some slight reduced hyolaryngeal movement and slightly reduced anterior hyoid excursion; however given age and diagnoses, movement was not completely outside of functional limits. On trials of thin liquid, no overt s/sx of aspiration noted. Not wet/ gurgly voice observed. On trials of puree, no overt s/sx of aspiration noted again. Of note, pt spontaneoulsy performed a double swallow on a majority of trials. PRICER BAGGER observed the pt take medication from nurse which consisted of a liquid and some small pills. The pt tolerated the liquid medication and took both small pills at the same time with thin liquid from straw. Again, no overt s/ sx of aspiration occurred. Fatigue/Endurance Moderate fatigue Comment Through trials, pt appeared to begin to get more fatigued as observed by closing eyes, slower head nods to answer yes /no questions. Due to fatigue level and no dentures, trials of increased textures of solids were not completed at this time. Response/Comments Pt spontaneously does a double swallow on trials. This appears to be effective in clearing oral and pharyngeal cavities from residue lingering. Findings Swallowing Function Oropharyngeal phase dysphagia Severity of Swallow Impairment Mildly-moderately impaired Contributing Factors to Swallow Reduced alertness or attention Impairment ,Reduced oral strength/ coordination/sensation, Mastication inefficiency Prognosis Guarded Based on Comorbidities,Duration of symptoms/severity Impact on Safety and Functioning Risk for aspiration,Risk for inadequate nutrition/hydration Recommendations Instrumental Assessment No Swallowing Treatment Yes Frequency x1-x2 to monitor diet and tolerance Recommended Solids Puree Recommended Liquids Thin Other Recommendations If pt continues to not consume much and continues to be very fatigued, alternative ways to meet nutrition may be considered based on pt's wishes. Try to be as inclined as comfortable for the pt when eating/drinking. Safety Precautions/Swallowing Feed only when alert,Reduce Recommendations distractions,Small bites and sips when eating,Slow rate; swallow between bites,Multiple swallows Medication Recommendations As Tolerated Discharge Recommendations [facility] facility,assisted care facility,Home with Home Health,Home with Hospice, Palliative care Referrals Recommended Referrals Dietary Education Patient/Caregiver Education Described results of evaluation,Patient expressed understanding of evaluation, Patient expressed agreement with goals & treatment plans, Patient expressed understanding of safety precautions,Patient expressed understanding of feeding recommendations Goals Short-term Goals Pt will increase intake of solids/liquids in order to build strength. Long-term Goals Pt will tolerate least restrictive diet without demonstrating overt s/sx of aspiration
--- NOTE | 2021-09-30 14:22 | PT-IP ANOTE ---
Attempted to see pt at 14:22, pt seemingly barely able to communicate but shakes her head no to physical therapy today.
--- NOTE | 2021-09-30 15:40 | PM.CN ---
History of Present Illness Consult details Date Patient Seen: 09/30/21 Time Patient Seen: 12:00 Chief complaint: hard time breathing Reason for consult: Nausea and vomiting Requesting provider: Galilea Galindo Narrative: Patient sleeping. Meds Home Medications and Allergies Home Medications Medication Instructions Recorded Confirmed Type metoclopramide HCl 5 mg tablet 5 mg PO Q6HR PRN 03/01/21 09/25/21 History sertraline 50 mg tablet 100 mg PO BEDTIME 03/04/21 09/25/21 History pantoprazole 40 mg tablet,delayed 40 mg PO DAILY 03/14/21 09/25/21 History release dextromethorphan-guaifenesin 5 10 ml PO Q4H PRN #120 ml 05/12/21 09/25/21 Rx mg-100 mg/5 mL oral liquid (Robitussin Cough-Chest Congestion DM) pazopanib 200 mg tablet (Votrient) 800 mg PO 0700 #120 tab 05/24/21 09/25/21 Rx tolterodine 4 mg capsule,extended 4 mg PO DAILY 07/26/21 09/25/21 History release 24 hr Allergies Allergy/AdvReac Type Severity Reaction Status Date / Time Pork/Porcine Containing Allergy Intermediate SWELLING, Verified 03/14/21 17:16 Products Vomiting Exam Vital Signs (past 8 hours): - 09/30/21 08:36 09/30/21 11:45 Temperature 97.1 F L Pulse Rate 88 Respiratory Rate 16 Blood Pressure 141/93 H Pulse Oximetry 92 93 Oxygen Delivery Method Room Air Oxygen Flow Rate 0 Narrative Exam Narrative: Pale. abdomen is soft with palpable metastatic disease in RUQ. fullness in LLQ. Objective Labs Result Diagrams: 09/29/21 06:00 09/29/21 06:00 Labs: Laboratory Results - last 24 hr 09/25/21 01:10 Crossmatch See Detail [facility] Medical History Acute bilateral low back pain with bilateral sciatica Arthritis Bleeding ulcer (2017) GERD (gastroesophageal reflux disease) History of frequent headaches History of transfusion (01/16/14) History of transfusion of packed red blood cells (01/16/14) HTN (hypertension) Hx of radiation therapy Left rib fracture (09/2017) Metastasizing leiomyoma of uterus Port-A-Cath in place Wears dentures Wears glasses Surgical History History of colonoscopy with polypectomy (03/22/14) History of esophagogastroduodenoscopy (EGD) (05/22/18) History of esophagogastroduodenoscopy (EGD) (03/22/14) History of lung biopsy (06/2014) History of total hysterectomy with bilateral salpingo-oophorectomy (BSO) (01/2014) Hx of bilateral cataract extraction (02/15/15) Hx of dilation and curettage (01/16/14) Hx of shoulder surgery (2018) Status post dilation and curettage Family History Mother Ovarian cancer Father Non-Hodgkin lymphoma Grandfather Skin cancer Social History household members: children Tobacco & Substance Use Smoking Status: Unknown if ever smoked alcohol intake: never Assessment & Plan Assessment & Plan narrative: Chronic metastatic disease with numerous reasons for anorexia, nausea and vomiting. All related to advanced cancer. Constipation, carcinomatosis, Chemo agents, thrush, pneumonia... Plan: Gastrografin challenge to rule out partial obstruction or GOO. It will also address the severe constipation. On PPI for gastritis, treat for thrush. No EGD recommended at this time. Recommend Hospice, but son is opposed to my understanding. Time Spent With Patient Critical Care time: I spent a total of [] minutes of critical care time on this patient's care today; this time is exclusive of procedural time.
--- NOTE | 2021-09-30 16:23 | PC.NURSE ---
Contacted Dr. Candice Santiago regarding Pt's gastrograftin challenge. Pt had emetic episode X3 of about 75 ml. Gastrografin challenge cancelled per Dr's order and will retry again tomorrow.
[2021-09-30] MEDS: ONDANSETRON 4 MG/2 ML INJ IV (16:38)
[2021-09-30] MEDS: SERTRALINE 50 MG TABLET 100 MG PO (20:58)
[2021-09-30] MEDS: SENNOSIDES 8.6 MG TABLET 17.2 MG PO (20:58)
[2021-10-01] VITALS (9 sets, daily range): BP systolic 131–147; BP diastolic 80–96; PULSE 75–93; RESP 16–20; TEMP 35.5–36.4; O2SAT 92–96
[2021-10-01] MEDS: SODIUM CHLORIDE 0.9% FLUSH 10 ML IV ×3 (04:04→21:02)
[2021-10-01] MEDS: cefTRIAXone 1,000 MG in SODIUM CHLORIDE 0.9% 100 ML 200 ML IV (04:35)
[2021-10-01] MEDS: PAZOPANIB 200 MG 800 EACH PO (06:16)
[2021-10-01 06:34] LABS: Add Manual Diff / Slide Review NO; Basophils Absolute Auto 0 /uL (0-100); Basophils Percent Auto 0.2 % (0-2); Eosinophils Absolute Auto 0 /uL (0-450); Eosinophils Percent Auto 0.2 % (2-4); Hematocrit 34.2 % (36-46); Hemoglobin 11.1 g/dL (12.0-16.0); Lymphocytes Absolute Auto 500 /uL (1100-4500); Lymphocytes Percent Auto 5.1 % (25-40); Mean Corpuscular HGB Conc 32.3 % (30-36); Mean Corpuscular Hemoglobin 30.1 PG (26-34); Mean Corpuscular Volume 93.1 fL (80-100); Monocytes Absolute Auto 600 /uL (0-900); Monocytes Percent Auto 5.9 % (3-14); Neutrophils Absolute Auto 9500 /uL (1500-7000); Neutrophils Percent Auto 88.6 % (50-75); Platelet Count 170 X10^3/uL (150-400); Red Blood Cell Count 3.68 X10^6/uL (4.0-5.2); Red Cell Distribution Width 17.8 % (11.6-14.8); White Blood Cell Count 10.8 X10^3/uL (4.5-11.0)
[2021-10-01 06:55] LABS: BUN Creatinine Ratio 32.9 (6-22); Blood Urea Nitrogen 23 mg/dL (7-17); Calcium 8.4 mg/dL (8.4-10.2); Carbon Dioxide 22 mmol/L (22-32); Chloride 106 mmol/L (98-107); Estimated Glomerular Filt Rate > 60.0 mL/min (>60); Glucose 84 mg/dL (80-110); HEMOLYSIS 101 (0-50); Sodium 133 mmol/L (137-145)
[2021-10-01 06:56] LABS: Potassium 5.2 mmol/L (3.4-5.1)
--- NOTE | 2021-10-01 08:00 | DI.RAD.S_ITS ---
PROCEDURE: XR ABDOMEN 1V INDICATIONS: eval if gastrografin traveled TECHNIQUE: One view of the abdomen acquired. COMPARISON: [facility], CT, CT CHEST ABD PEL W CON, 09/25/2021, 1:56. FINDINGS: Surgical changes and devices: A Ferreira catheter is faintly seen. Bowel: Bowel gas pattern is normal. The previously administered contrast is seen within the distal colon. Apparent undigested tablets can be seen. Soft tissues: No suspicious abdominal calcifications. Visualized solid organ contours appear normal in size. Bones: No suspicious bony lesions. Age-appropriate bony degenerative changes are seen. Mild levoconvex scoliotic curvature is noted. IMPRESSION: There is no bowel obstruction. The previously administered oral contrast is seen within the distal colon. Dictated by: Aristeo Lovelace M.D. on 10/01/2021 at 10:06 Approved by: Aristeo Lovelace M.D. on 10/01/2021 at 10:08
[2021-10-01] MEDS: NYSTATIN SUSP 500,000 UNIT/5 ML UDC 500000 UNIT PO (08:23)
[2021-10-01] MEDS: DICLOFENAC 1% GEL 100 GM 1 APPLIC TOP (08:23)
[2021-10-01] MEDS: PANTOPRAZOLE DR 20 MG TABLET PO (08:24)
[2021-10-01] MEDS: ENOXAPARIN 40 MG/0.4 ML SYRINGE SUBCUT (08:24)
[2021-10-01] MEDS: OXYBUTYNIN 5 MG ER TAB 10 MG PO (08:24)
--- NOTE | 2021-10-01 10:57 | P.PN_ITS ---
Subjective Subjective Date Patient Seen: 10/01/21 Time Patient Seen: 10:57 Interval history: Sleeping. threw up a portion of the gastrografin. Enough injested to cause diarrhea. ABD Xray pending. Exam Vital Signs (past 8 hours): - 10/01/21 04:20 10/01/21 08:18 Temperature 97.3 F L Pulse Rate 86 Respiratory Rate 18 Blood Pressure 145/96 H Pulse Oximetry 92 93 Oxygen Delivery Method Room Air Oxygen Flow Rate 0 Narrative Exam Narrative: No acute abdomen, softer today. Objective Labs Result Diagrams: 10/01/21 06:20 10/01/21 06:20 Labs: Laboratory Results - last 24 hr 10/01/21 10/01/21 06:20 06:20 WBC 10.8 RBC 3.68 L Hgb 11.1 L Hct 34.2 L MCV 93.1 MCH 30.1 MCHC 32.3 RDW 17.8 H Plt Count 170 Neut % (Auto) 88.6 H Lymph % (Auto) 5.1 L [place] % (Auto) 5.9 Eos % (Auto) 0.2 L Baso % (Auto) 0.2 Neut # (Auto) 9500 H Lymph # (Auto) 500 L [place] # (Auto) 600 Eos # (Auto) 0 Baso # (Auto) 0 Sodium 133 L Potassium 5.2 H Chloride 106 Carbon Dioxide 22 BUN 23 H Creatinine 0.70 Estimated GFR > 60.0 BUN/Creatinine Ratio 32.9 H Glucose 84 Calcium 8.4 PFSH Medical History Acute bilateral low back pain with bilateral sciatica Arthritis Bleeding ulcer (2017) GERD (gastroesophageal reflux disease) History of frequent headaches History of transfusion (01/16/14) History of transfusion of packed red blood cells (01/16/14) HTN (hypertension) Hx of radiation therapy Left rib fracture (09/2017) Metastasizing leiomyoma of uterus Port-A-Cath in place Wears dentures Wears glasses Surgical History History of colonoscopy with polypectomy (03/22/14) History of esophagogastroduodenoscopy (EGD) (05/22/18) History of esophagogastroduodenoscopy (EGD) (03/22/14) History of lung biopsy (06/2014) History of total hysterectomy with bilateral salpingo-oophorectomy (BSO) (01/2014) Hx of bilateral cataract extraction (02/15/15) Hx of dilation and curettage (01/16/14) Hx of shoulder surgery (2019) Status post dilation and curettage Family History Mother Ovarian cancer Father Non-Hodgkin lymphoma Grandfather Skin cancer Social History household members: children Smoking Status: Unknown if ever smoked alcohol intake: never Assessment & Plan Assessment & Plan narrative: Await abd Xray to determine if more needs to be done for constipation PPI treatment for dispepsia Nausea and Vomiting is related to system disease most likely. No obstruction. All possible treatments already being applied. Plan: Recommend hospice. Nutrition, if requested by family should be dobhoft tube for 2 weeks to determine if feeding is tolerated at all before other modes offered or considered. Gastrografin challenge awaits the abd film to determine if other issue exist. Time Spent With Patient Time with patient: less than 30 minutes Critical Care time: I spent a total of [] minutes of critical care time on this patient's care today; this time is exclusive of procedural time. Quality VTE Deep Vein Thrombosis/Pulmonary Embolism Present on Admission: No
--- NOTE | 2021-10-01 11:36 | PT-IP ANOTE ---
WET WASH ASSEMBLER spoke with a palliative care nurse who is consulting on pt's case. Nurse states pt is not appropriate for PT today and will likely be d/c from therapy as she is unable to tolerate much activity. PT will follow up with nursing tomorrow before deciding on d/c.
--- NOTE | 2021-10-01 15:08 | P.PN_ITS ---
Subjective Subjective Date Patient Seen: 10/01/21 Time Patient Seen: 08:00 Interval history: She says she feels weak and nauseous. She denies pain. Exam Vital Signs (past 8 hours): - 10/01/21 08:18 10/01/21 11:40 10/01/21 12:05 Temperature 96.3 F L 96.3 F L Pulse Rate 76 76 Respiratory Rate 18 20 Blood Pressure 146/80 H 146/80 H Pulse Oximetry 93 96 96 Oxygen Delivery Method Room Air Oxygen Flow Rate 0 Narrative Exam Narrative: GEN: frail, chronically ill appearing, weak CV: regular rate and rhythm, no murmurs PULM: decreased breath sounds at bases ABD: soft, nontender, +palpatble RUQ mass Objective Labs Result Diagrams: 10/01/21 06:20 10/01/21 06:20 Labs: Laboratory Results - last 24 hr 10/01/21 10/01/21 06:20 06:20 WBC 10.8 RBC 3.68 L Hgb 11.1 L Hct 34.2 L MCV 93.1 MCH 30.1 MCHC 32.3 RDW 17.8 H Plt Count 170 Neut % (Auto) 88.6 H Lymph % (Auto) 5.1 L [place] % (Auto) 5.9 Eos % (Auto) 0.2 L Baso % (Auto) 0.2 Neut # (Auto) 9500 H Lymph # (Auto) 500 L [place] # (Auto) 600 Eos # (Auto) 0 Baso # (Auto) 0 Sodium 133 L Potassium 5.2 H Chloride 106 Carbon Dioxide 22 BUN 23 H Creatinine 0.70 Estimated GFR > 60.0 BUN/Creatinine Ratio 32.9 H Glucose 84 Calcium 8.4 PFSH Medical History Acute bilateral low back pain with bilateral sciatica Arthritis Bleeding ulcer (2017) GERD (gastroesophageal reflux disease) History of frequent headaches History of transfusion (01/16/14) History of transfusion of packed red blood cells (01/16/14) HTN (hypertension) Hx of radiation therapy Left rib fracture (09/2017) Metastasizing leiomyoma of uterus Port-A-Cath in place Wears dentures Wears glasses Surgical History History of colonoscopy with polypectomy (03/22/14) History of esophagogastroduodenoscopy (EGD) (05/22/18) History of esophagogastroduodenoscopy (EGD) (03/22/14) History of lung biopsy (06/2014) History of total hysterectomy with bilateral salpingo-oophorectomy (BSO) (01/13 014) Hx of bilateral cataract extraction (02/15/15) Hx of dilation and curettage (01/16/14) Hx of shoulder surgery (2018) Status post dilation and curettage Family History Mother Ovarian cancer Father Non-Hodgkin lymphoma Grandfather Skin cancer Social History household members: children Smoking Status: Unknown if ever smoked alcohol intake: never Assessment & Plan Assessment & Plan narrative: Sepsis, likely secondary to uti -lactate initially elevated at 5.2, improved with IV fluid -urine growing klebsiella and e. coli, continue antibiotics with ceftriaxone Chronic hypoxemia likely due to inactivity -She has had a history of pneumothorax however this is been ruled out.? She has a moderate-sized pleural effusion on the right lung and a small pleural effusion on the left -noted in ED to desat to the low 90s, now 94% on room air.? 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 Free T4 is pending -Patient likely euthyroid sick, does not need treatment at this time Obstipation unknown if chronic or acute -Patient will be put on stool softeners and have an enema if indicated Dispo: she is chronically ill, appears to continue to worsen, this is in setting of metastatic worsening cancer, she is hospice appropriate which the son is not interested in pursuing, consider palliative consult Time Spent With Patient Critical Care time: I spent a total of [] minutes of critical care time on this patient's care today; this time is exclusive of procedural time. Quality VTE Deep Vein Thrombosis/Pulmonary Embolism Present on Admission: No
--- NOTE | 2021-10-01 15:50 | CM.DPC ---
DCP Cont: Spoke to Lani at [facility] regarding the HACH program, which is a high acuity of care, program. Initial visit is with nurse and telemedicine on her laptop to their provider. She indicated, patient most likely qualifies for this. Asked her about the time factor, should patient discharge home tomorrow. She indicated, they try to do their visits between 24-48 hours, but can find out tomorrow which clinician can see her. Let her know that this program planner will update her. P: DCP to continue to follow. Son has declined hospice per notes from provider. Have not discussed palliative care program as well, can be optional. Home Health HACH with [facility] is the goal for home. Mariam Herrera RN/Cyber Security Engineer
[2021-10-01] MEDS: SERTRALINE 50 MG TABLET 100 MG PO (21:02)
[2021-10-02 03:42] VITALS: BP 142/83; PULSE 78; RESP 20; TEMP 35.8; O2SAT 95
[2021-10-02 07:30] VITALS: BP 138/80; PULSE 72; RESP 18; TEMP 36.2; O2SAT 96
[2021-10-02] MEDS: NYSTATIN SUSP 500,000 UNIT/5 ML UDC 500000 UNIT PO (09:26)
[2021-10-02] MEDS: OXYBUTYNIN 5 MG ER TAB 10 MG PO (09:26)
[2021-10-02] MEDS: ENOXAPARIN 40 MG/0.4 ML SYRINGE SUBCUT (09:26)
[2021-10-02] MEDS: SODIUM CHLORIDE 0.9% FLUSH 10 ML IV (09:27)
[2021-10-02] MEDS: PANTOPRAZOLE DR 20 MG TABLET PO (09:27)
--- NOTE | 2021-10-02 10:39 | PM.DS.1 ---
History of Present Illness History of Present Illness Date Patient Seen: 10/02/21 Chief complaint: hard time breathing Narrative: Per DESIREE Barrera: Nessa Nino is a 76-year-old female who arrives via private auto after having a lift assist by EMS.? EMS contacted the ED as they wanted to transfer the patient but family refused.? Per the ED provider, it took 4 people to actually pull the patient out of the son's car because she was so weak.? Patient is very lethargic and history is provided by Carrillo , her son and CHIQUI. Patient has been weak, unable to ambulate, short of breath, vomiting brown emesis, and said he heard gurgling from her abdomen.? He states she has not worn dentures since the start of the pandemic, and stated she complained that her mouth hurts. She was unable to give me a history, but told the ED provider she has had nausea and vomiting for 3 days.? She is quite pale and she states this is atypical.? She states she has had blood transfusions and is treated for a leiomyosarcoma and is undergoing active treatment.? Most recently she had a transfusion a couple weeks ago on August 30 for her anemia and received 1 unit PRBCs.? Denies any black or bloody stools though son noted she was vomiting brown emesis.? She denies prior GI bleeds.? Denies any fevers or chills. ? She also has a history of pleural effusion, pneumothorax, leiomyosarcoma and radiation pneumonitis. In the emergency department they did a chest x-ray which indicated ?mass like opacity of the lungs bilaterally concerning for recurrent pneumonia or related to a neoplastic process.? Small right-sided pleural effusion.? CT of the chest in abdomen ruled out a PE or pneumothorax which the patient has had chronic episodes of this.? It also noted that she had a large amount of stool in the rectum causing dilation and perirectal inflammation and indicated possible colitis of the ascending colon.? Patient's initial oral temperature was in the low low to mid 90s and rectal temperature indicated that she was 96.3, blood pressure 129/72, heart rate 73, respiratory rate of 9, oxygen saturation 94% on 2 L she weighs 59.4 kg with a BMI of 24.2.? She has a elevated white count of 16.9 hemoglobin 9.9 hematocrit 31 which is consistent with prior anemia, platelet count 521, sodium 127, potassium 5.2, chloride 94, bicarb 20,, BUN 38, creatinine 0.92, with an EGFR 59.5, glucose is 135, lactate is 4.0 down from 5.2, AST 182, ALT 41, alk-phos 208, proBNP is 10 50, procalcitonin is 1.16, UA is positive for UTI with presence of nitrates and bacteria, COVID-19 PCR is negative. Discharge Providers Provider Date of admission: 09/25/21 03:57 Discharge Date: 10/02/21 Primary care physician: Fuad Burkett MD Consults: 09/25/21 01:54 Consult to MICROCHIP SPECIALIST - Director Of Vendor Management Stat Comment: MICROCHIP SPECIALIST Consult needed for:: Community Health Res Need 09/25/21 11:10 Consult to Occupational Therapy Evaluate & Treat Comment: Physician Instructions: Evaluate and treat Consult to Physical Therapy Evaluate & Treat Comment: Physician Instructions: Evaluate and Treat 09/25/21 17:10 Consult to Dietitian, Adult Routine Comment: Reason For Exam: poor po intake, n/v, marco antonio score 11 09/29/21 16:06 Consult to Speech Therapy Evaluate & Treat Comment: Physician Instructions: Evaluate and treat Discharge provider: Ruperto Lucas DO Summary Hospital Course Discharge Diagnosis: Please see hospital course by problem list noted below Hospital Course: Sepsis, likely secondary to uti -lactate initially elevated at 5.2, improved with IV fluid -urine culture grew klebsiella and e. coli, continued antibiotics with ceftriaxone while admitted. Completed antibiotic course with 7 days of therapy during hospitalization. -patient had prolonged recovery with continued nausea, weakness and emesis which did improve somewhat over the course of admission, but not much. Unclear how much acute infection played in the setting of progressive malignancy as well. She was discharged with continued reglan and zofran as well as PPI. Did see some improvement with treatment for thrush seen during admission. Chronic hypoxia, resolved. -She has had a history of pneumothorax however this is been ruled out.? She has a moderate-sized pleural effusion on the right lung and a small pleural effusion on the left which are chronic. -noted in ED to desat to the low 90s, she was low to mid 90s on room air during her admission. Anorexia, failure to thrive, GERD -continue Protonix, Surgery consult 09/30 for EGD to r/o yeast esophagitis or other etiology for nausea/emesis. She was treated with nystatin and this is continued on discharge for another 10 days. -surgery ordered gastrograffin study, does not think EGD is indicated currently given her illness and risk factors -likely worsened in the setting of acute infection, as well as progressive leiomyosarcoma. Protein Calorie Malnutritions -severe, secondary to cancer, dietary recommendations were appreciated. Increases her risk of morbidity and mortality in setting of sepsis. 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 follow up as outpatient Anemia, chronic -She was initially dehydrated in the ER, after rehydration returned to prior levels. No further evaluation warranted at this time. Sick euthyroid, subclinical hypothyroidism. -TSH was 35.5 in April and on admit was 16.3. Free T4 was within normal limits. -recommend repeat evaluation as an outpatient. Obstipation unknown if chronic or acute -Patient will be put on stool softeners and have an enema if indicated Chronic sacral decubitus ulcer - continue frequent turning and care at home Dispo: she is chronically ill, appears to continue to worsen, this is in setting of metastatic worsening cancer, she is hospice appropriate which the son is not interested in pursuing, consider palliative consult as an outpatient. Patient desired that the patient return home, home health was provided. Time Spent with Patient Time spent: Greater than 30 minutes Exam Vital Signs (past 8 hours): - 10/02/21 03:42 10/02/21 07:30 Temperature 96.4 F L 97.2 F L Pulse Rate 78 72 Respiratory Rate 20 18 Blood Pressure 142/83 H 138/80 Pulse Oximetry 95 96 Oxygen Delivery Method Room Air Oxygen Flow Rate 0 Narrative Exam Narrative: GEN: frail, chronically ill appearing, weak CV: regular rate and rhythm, no murmurs PULM: decreased breath sounds at bases ABD: soft, nontender, non-distended with palpable mass in RUQ Objective Labs Result Diagrams: 10/02/21 13:31 10/02/21 13:35 [facility] Medical History Acute bilateral low back pain with bilateral sciatica Arthritis Bleeding ulcer (2018) GERD (gastroesophageal reflux disease) History of frequent headaches History of transfusion (01/16/14) History of transfusion of packed red blood cells (01/16/14) HTN (hypertension) Hx of radiation therapy Left rib fracture (09/2017) Metastasizing leiomyoma of uterus Port-A-Cath in place Wears dentures Wears glasses Surgical History History of colonoscopy with polypectomy (03/22/14) History of esophagogastroduodenoscopy (EGD) (05/22/18) History of esophagogastroduodenoscopy (EGD) (03/22/14) History of lung biopsy (06/2014) History of total hysterectomy with bilateral salpingo-oophorectomy (BSO) (01/2014) Hx of bilateral cataract extraction (02/15/15) Hx of dilation and curettage (01/16/14) Hx of shoulder surgery (2018) Status post dilation and curettage Family History Mother Ovarian cancer Father Non-Hodgkin lymphoma Grandfather Skin cancer Social History household members: children Smoking Status: Unknown if ever smoked alcohol intake: never Discharge Plan Discharge Plan Patient Disposition: Home Health Service Provider Discharge Comment: Patient was admitted with urinary tract infection, improved with antibiotics and infection was fully treated in the hospital. Seen by general surgery for possible EGD, however not recommended given severity of chronic medical illnesses and acute infection. Medications for constipation were prescribed, as well as a treatment for possible fungal esophagitis. Would highly recommend discussion with palliative care as an outpatient for goals of care discussion and symptom management assistance in setting of advanced cancer. Discharge orders & Medications Prescriptions: New sennosides [senna] 8.6 mg Tablet 17.2 mg PO BEDTIME 14 Days Qty: 28 0RF nystatin 100,000 unit/mL Suspension 500,000 unit PO BID 10 Days Qty: 100 0RF bisacodyl 5 mg Tablet,Delayed Release (Dr/Ec) 5 mg PO BID PRN (Reason: Constipation) 14 Days Qty: 28 0RF ondansetron 4 mg tablet,disintegrating 4 mg PO Q8H PRN (Reason: nausea and vomiting) 30 Days Qty: 30 0RF Continued Votrient 200 mg tablet 800 mg PO 0700 Qty: 120 3RF Rx Instructions: take 4 tablets daily tolterodine 4 mg Capsule,Extended Release 24hr 4 mg PO DAILY 0RF Rx Instructions: No longer takes sertraline 50 mg tablet 100 mg PO BEDTIME 0RF Rx Instructions: no longer takes pantoprazole 40 mg tablet,delayed release (DR/EC) 40 mg PO DAILY 0RF Label Comments: TAKE 1/2 TABLET BY MOUTH TWICE DAILY Rx Instructions: no longer takes metoclopramide HCl 5 mg Tablet 5 mg PO Q6HR PRN (Reason: Nausea) 30 Days Qty: 60 0RF Rx Instructions: no longer takes Discontinued Robitussin Cough-Chest Domingo DM 5-100 mg/5 mL Liquid 10 ml PO Q4H PRN (Reason: cough) Qty: 120 1RF Rx Instructions: no longer takes Follow up/Referrals: Fuad Burkett MD [Primary Care Provider] - Diet/Activity/Treatments Diet: Diet as Tolerated Diet comment: see handout on increased calorie Boost drinks Activity: As tolerated Visit Report/Discharge Packet Instructions: Urinary Tract Infection, DI for Urinary Retention in Women Discharge Data Primary Care Provider: Fuad Burkett V Quality VTE Deep Vein Thrombosis/Pulmonary Embolism Present on Admission: No
--- NOTE | 2021-10-02 10:41 | DIET.PN1 ---
Dietary Progress Note Assessment: Calorie Count continued through the weekend. Pt seen by Speech Therapy who recommend puree diet with thin liquids secondary to fatigue and edentulous. Pt received consult from general surgery for ongoing N/V, gastrografin study normal, pt not indicated for EGD. Pt does not have dentures at baseline x1y, pt generally refuses altered texture diet at hospital. Calorie count over weekend shows: Breakfast: 1/4c cottage cheese c OJ and /2 ONS Boost Lunch/Dinner: 50% ground meat with gravy, 25% mashed potatoes, 100% Juice With pts current POs, meeting 60% EER for calories and 40% EER for protein. Pt and son decline artificial nutrition at this time, however pt remains Full Code. Pt dislikes ONS Ensure carried at hospital, prefers home Boost, pts son has been encouraged to bring in home ONS for use in hospital as pt seems to do best with liquid consumption. Recc pt drink 3 'Boost Very High Calorie' ONS daily to support nutrition status if POs remain at current level. Ht: 167.64 cm Wt: 61.3 kg BMI: 21.8 Last BM: 10/02/21 (10/02/21 09:45) MNA: 8 Shiv Score: 7 Diet: 09/25/21 Breakfast Heart Healthy Diet Diet Modifications: 09/30/21 Lunch Dysphagia Diet Diet Modifications: Soft foods, easy to chew Liquid consistency: Normal/Thin Food texture: Dysphagia Pureed Nutrition Percent Meal Consumed 25% 10/02/21 09:45 Percent Meal Consumed 50% 10/01/21 19:20 Percent Meal Consumed 15% 10/01/21 12:15 Percent Meal Consumed 10% 10/01/21 08:05 Percent Meal Consumed 10% 09/30/21 18:00 Percent Meal Consumed 20% 09/30/21 12:45 Labs: RBC 3.68 X10^6/uL (4.0-5.2) L 10/01/21 06:20 Hgb 11.1 g/dL (12.0-16.0) L 10/01/21 06:20 Hct 34.2 % (36-46) L 10/01/21 06:20 Creatinine 0.70 mg/dL (0.52-1.04) 10/01/21 06:20 Lactate 2.4 mmol/L (0.7-2.1) H 09/26/21 11:26 NT-Pro-B Natriuret Pep 1050 pg/mL (<450) H 09/25/21 01:10 Nutrition Diagnosis: Ongoing Severe Chronic Malnutrition r/t eating intolerance and catabolic state aeb pt admitted for N/V, weakness, POs meeting <75% EER via calorie count, admission BMI 19.6 (severe for age), pt 15% UBW when admitted, pt weak with adult failure to thrive, imaging showing progression of liver mets. Interventions: 1. Monitoring calorie count to assess pts ability to meet nutrition needs with PO intake. 2. Sending known favorite foods to spur PO intake. 3. Recc timing antiemetics around meal time to encourage PO intake. 4. Encourage Boost Very High Calorie three times daily with marginal POs. EER: 1925kcals (35kcal/kg), 70-75g PRO (1.3-1.5g/kg) Electronically Signed by: Sofie Liz 10/02/21 10:41 Clinical Dietitian [address] [id number]
[2021-10-02] MEDS: PAZOPANIB 200 MG 800 EACH PO (11:00)
--- NOTE | 2021-10-02 12:01 | CM.DPC ---
Addendum entered by Mariam Herrera R.N. 10/02/21 13:11: Did call and set up BLS picker box operator for patient at 1500. Let them know that patient is Medicaid, and gave Medicaid number. Completed BLS form, and attached face sheet. Let them know that she is full code. Updated nurse on picker box operator time. Dr. Lucas called sonCarrillo, with updated medical information. Faxed [facility] face sheet and wrote in patient's address, face to face, orders, DC Summary, P.T. notes, and med sheets. Original Note: DCP Cont: Spoke to Dr. Lucas, and is planning on discharging her today. Asked him to call son, Carrillo, to update him, for he will have medical questions. Noted that discharge orders are in. Called, sonCarrillo. Carrillo stated, so what's the status on her scope, the last I heard was from Dr. Galindo. Did not discuss with son, for it is noted that patient was not able to have EGD, due to vomiting contrast. Let him know that Dr. Lucas can update him today, but will have her discharge home with [facility] program. Son stated, ok, but no one will be with her tomorrow when I go to my medical appointment at [facility]. Due to concerns about patient being alone, called [facility]. Spoke to Delon Alejandra at [facility]. Let him know, son is wanting to care for his mom, does care about his mom, doesn't want her going anywhere but home. but may be times where she is left alone. He gave case number of: [id number]. Let him know that [facility] is being ordered, and did fax over a referral for [facility]. Delon at [facility] did look into this, and a [facility] case resource manager has been assigned. Her name is Nara Alejandra. Her phone number is: [phone]. Let him know, son wants to care for mom, but concerns are if he can. Let him know that he does not want her to go anywhere but home. Left a message for Tika, for she has been seeing patient over at oncology. This DC menu planner was on the phone, and she attempted to return call. In her message, she indicated, she thought that patient was still at [facility]. Left her another message letting her know that son did not want her going back there, and went ahead and set up [facility], and have case resource managersystems integration manager for [facility]. Have updated Lani at [facility]. Face to face will be faxed, and DC Summary Mariam Herrera RN/Industrial Arts Teacher
--- NOTE | 2021-10-02 13:23 | OT.IPNOTE ---
Discussed case with P.T. and during rounds. Pt not appropriate for therapy services at this time. Will d/c Ot orders.
[2021-10-02 13:39] LABS: Hemoglobin 10.1 g/dL (12.0-16.0); Mean Corpuscular HGB Conc 31.7 % (30-36); Mean Corpuscular Hemoglobin 29.6 PG (26-34); Mean Corpuscular Volume 93.1 fL (80-100); Platelet Count 147 X10^3/uL (150-400); Red Blood Cell Count 3.43 X10^6/uL (4.0-5.2); Red Cell Distribution Width 18.5 % (11.6-14.8); White Blood Cell Count 6.9 X10^3/uL (4.5-11.0)
[2021-10-02 14:15] LABS: BUN Creatinine Ratio 38.1 (6-22); Blood Urea Nitrogen 24 mg/dL (7-17); Calcium 8.2 mg/dL (8.4-10.2); Carbon Dioxide 26 mmol/L (22-32); Chloride 103 mmol/L (98-107); Estimated Glomerular Filt Rate > 60.0 mL/min (>60); Glucose 84 mg/dL (80-110); HEMOLYSIS 28 (0-50); Potassium 4.5 mmol/L (3.4-5.1); Sodium 131 mmol/L (137-145)
--- NOTE | 2021-10-02 14:36 | ST.IPDYTX ---
Visit Care Team Role Provider Type Fuad Burkett MD Primary Care Provider Physician Specialty: Internal Medicine Address: [address] [place] [address], [id number] Email: [email or web address] Rossi Wallace DO Emergency Provider Physician Referring Provider Specialty: Emergency Medicine Address: [address] [place] [address], [id number] Email: [email or web address] [email or web address] Admit Provider Physician Attending Provider Specialty: Internal Medicine Address: [address] [place] [address], [id number] Email: [email or web address] PLATE WORKER HELPER Dysphagia Treatment PLATE WORKER HELPER Dysphagia Treatment Start: 10/02/21 14:25 Freq: Status: Active Protocol: Document 10/02/21 14:25 LNK (Rec: 10/02/21 14:35 LNK [id number]) Dysphagia Treatment Session Time Visit Start Time 09:45 Visit Stop Time 10:00 Total Visit Minutes 15 Setting Assessment Location Acute Care Visit Type Note Type Re-Evaluation Next Note Type Next Note Type Re-Evaluation Patient Information Identification Type Name,ID Wristband Subjective Observations Pt in bed having finished OT and was lying in bed. Pt appeared weak. Treatment Liquids Trialed Thin Solids Trialed Puree Administration Type Tea Spoon,Cup Consecutive Sips ,Straw Oral Strategies Controlled Bite/Sip Size Pharyngeal Strategies Small Bites and Sips,Alternate Liquids/Solids Treatment Activities Pt agreed to have some applesauce. She was able to clear spoon and successfully swallow 2 teaspoons. She refused to eat any more She requested water and safely drank several consecutive swallows. No overt s/sx aspiration. Assessment Patient Response to Treatment Poor Rehab Potential Poor Diet Recommendations Recommendations Continue Current Diet Liquids Order Thin Diet Order Dysphagia Blenderized Medication Recommendations As Tolerated,Crushed in Carrier Additional Dietary Needs 1:1 Assistance Aspiration Precautions Recommended Precautions Upright at 90 Degrees,Small Bites/Sips,Lingual Sweep,Check for Pocketing Treatment Plan Placement Recommendation after Discharge [facility] Appropriate for Continued Therapy No: Pt is safely tolerating diet, just doesn't want to eat .
== END 2021-10-02 15:05 | disposition home health service (06) | DRG 871 ==
LOC: ED 03:53 → AC 03:58
PROVIDERS: Family Medicine; Internal Medicine; Admitting Provider Nurse Practitioner Family; Emergency Provider Emergency Medicine; PCP Internal Medicine; Referring Provider Emergency Medicine; Visit Provider Nurse Practitioner Family
DX: A41.9 Sepsis, unspecified organism (principal); E43 Unspecified severe protein-calorie malnutrition; N39.0 Urinary tract infection, site not specified; J96.11 Chronic respiratory failure with hypoxia; C78.7 Secondary malignant neoplasm of liver and intrahepatic bile duct; C78.00 Secondary malignant neoplasm of unspecified lung; J90 Pleural effusion, not elsewhere classified; E87.2 Acidosis; R65.20 Severe sepsis without septic shock; L89.152 Pressure ulcer of sacral region, stage 2; C55 Malignant neoplasm of uterus, part unspecified; R63.0 Anorexia; D63.0 Anemia in neoplastic disease; B37.9 Candidiasis, unspecified; R10.13 Epigastric pain; K59.00 Constipation, unspecified; E86.0 Dehydration; K21.9 Gastro-esophageal reflux disease without esophagitis; E03.9 Hypothyroidism, unspecified; B96.20 Unspecified Escherichia coli [E. coli] as the cause of diseases classified elsewhere; B96.1 Klebsiella pneumoniae [K. pneumoniae] as the cause of diseases classified elsewhere; Z68.21 Body mass index [BMI] 21.0-21.9, adult; Z20.822 Contact with and (suspected) exposure to COVID-19
CPT/HCPCS: 36415; 36592; 71045; 71260; 74018; 74177; 80048; 80053; 80076; 81001; 83605; 83690; 83735; 83880; 84145; 84439; 84443; 84484; 85007; 85014; 85018; 85025; 85027; 85610; 85730; 86850; 86900; 86901; 87040; 87077; 87086; 87186; 87635; 92526; 92610; 93005; 93010; 94760; 94762; 96374; 96375; 97163; 97167; 97530; 97535; 99285; 99291; C9803; C9113; J0696; J1650; J1956; J2405; J2543; Q9967